=== PATIENT | male | born 1975 | race Caucasian/White ===

== ENCOUNTER → 2024-08-01 09:08 | Outpatient (REF) | payer BC, SELFPAY ==
[2024-08-01 10:21] LABS: % Basophils 0.3 % (0-2); % Eosinophils 2.1 % (0-6); % Immature Granulocytes 0.4 % (0-0.5); % Lymphocytes 19.2 % (20.5-51.1); % Monocytes 7.8 % (1.7-9.3); % Neutrophils 70.2 % (42.2-75.2); Absolute Eosinophils 0.2 10^3/uL (0-0.7); Absolute Lymphocytes 1.4 10^3/uL (1.2-3.4); Absolute Monocytes 0.6 10^3/uL (0.1-0.6); Hematocrit 33.5 % (39.0-52.0); Hemoglobin 10.5 g/dL (13.0-18.0); Mean Corp Hgb Conc. 31.3 g/dL (33.0-37.0); Mean Corpuscular Hgb 25.7 pg (27.0-31.0); Mean Corpuscular Volume 82.1 fL (80.0-94.0); Nucleated Red Blood Cells % 0 % (-); Platelet Count 333 10^3/uL (130-400); Red Blood Cell Count 4.08 10^6/uL (4.70-6.10); Red Cell Dist. Width 14.1 % (11.5-14.5); White Blood Cell Count 7.2 10^3/uL (4.8-10.8)
[2024-08-01 10:50] LABS: ALT (SGPT) 18 U/L (0-50); AST (SGOT) 17 U/L (17-59); Albumin 4.1 g/dl (3.5-5.0); Alkaline Phosphatase 114 U/L (38-126); Blood Urea Nitrogen 17 mg/dl (9-20); Calcium 9.1 mg/dl (8.4-10.2); Carbon Dioxide 27 mmol/L (22-30); Chloride 102 mmol/L (98-107); GGTP 32 U/L (15-73); Glucose 102 mg/dl (70-99); Iron 42 ug/dl (49-181); Potassium 4.5 mmol/L (3.5-5.1); Sodium 141 mmol/L (135-145); Total Bilirubin 0.3 mg/dl (0.2-1.3); Total Protein 7.1 g/dl (6.3-8.2); eGFR > 60.00
[2024-08-01 10:59] LABS: Percent Saturation 13 % (20-50); Total Iron Binding Capacity 318 ug/dl (261-462)
[2024-08-01 11:56] LABS: Folate 6.4 ng/ml (2.76-20); Vitamin B12 269 pg/ml (239-931)
== END ==
LOC: RAD 09:08
PROVIDERS: ATTENDING PHYSICIAN Hospitalist
DX: N50.89 Other specified disorders of the male genital organs (principal); D64.9 Anemia, unspecified; R74.8 Abnormal levels of other serum enzymes; R79.89 Other specified abnormal findings of blood chemistry
CPT/HCPCS: 36415; 76870; 80053; 82607; 82728; 82746; 82977; 83540; 83550; 85025; 93976

== ENCOUNTER → 2024-10-06 09:06 | Outpatient (REF) | payer BC, SELFPAY | LOC: RAD 09:06 | PROVIDERS: ATTENDING PHYSICIAN Hospitalist | DX: R31.9 Hematuria, unspecified (principal) | CPT/HCPCS: 76770 ==

== ENCOUNTER → 2024-11-18 19:25 | Outpatient (REF) | payer BC, SELFPAY | LOC: MRI 3T 19:25 | PROVIDERS: ATTENDING PHYSICIAN Specialist; FAMILY PHYSICIAN Internal Medicine | DX: D41.02 Neoplasm of uncertain behavior of left kidney (principal) | CPT/HCPCS: 74183; A9575 ==

== ENCOUNTER → 2024-12-12 08:21 | Outpatient (REF) | payer BC, SELFPAY ==
[2024-12-12 09:33] LABS: % Basophils 0.3 % (0-2); % Eosinophils 1.8 % (0-6); % Immature Granulocytes 0.3 % (0-0.5); % Lymphocytes 14.1 % (20.5-51.1); % Monocytes 9.3 % (1.7-9.3); % Neutrophils 74.2 % (42.2-75.2); Absolute Eosinophils 0.2 10^3/uL (0-0.7); Absolute Lymphocytes 1.3 10^3/uL (1.2-3.4); Absolute Monocytes 0.9 10^3/uL (0.1-0.6); Absolute Neutrophils 6.8 10^3/uL (1.4-6.5); Hematocrit 31.9 % (39.0-52.0); Hemoglobin 9.4 g/dL (13.0-18.0); Mean Corp Hgb Conc. 29.5 g/dL (33.0-37.0); Mean Corpuscular Volume 74.7 fL (80.0-94.0); Mean Platelet Volume 9.3 fL (7.4-10.4); Nucleated Red Blood Cells % 0 % (-); Platelet Count 546 10^3/uL (130-400); Red Blood Cell Count 4.27 10^6/uL (4.70-6.10); Red Cell Dist. Width 15.9 % (11.5-14.5); White Blood Cell Count 9.1 10^3/uL (4.8-10.8)
[2024-12-12 09:39] LABS: INR 1.03; PT 13.8 Sec (11.4-14.6)
[2024-12-12 09:40] LABS: APTT 30.1 Sec (23.4-35.0)
[2024-12-12 09:57] LABS: Blood Urea Nitrogen 22 mg/dl (9-20); Calcium 9.4 mg/dl (8.4-10.2); Carbon Dioxide 27 mmol/L (22-30); Chloride 109 mmol/L (98-107); Glucose 116 mg/dl (70-99); Potassium 5.2 mmol/L (3.5-5.1); Sodium 145 mmol/L (135-145); eGFR 45.01
== END ==
LOC: HWRAD 08:21
PROVIDERS: ATTENDING PHYSICIAN Urology; FAMILY PHYSICIAN Nurse Practitioner
DX: C64.9 Malignant neoplasm of unspecified kidney, except renal pelvis (principal)
CPT/HCPCS: 36415; 71046; 71250; 80048; 85025; 85610; 85730; 86850; 86900; 86901; 93005

== ENCOUNTER → 2025-01-27 10:25 | Outpatient (REF) | payer BC, SELFPAY ==
[2025-01-27 11:18] LABS: Hematocrit 39.5 % (39.0-52.0); Hemoglobin 12.2 g/dL (13.0-18.0); Mean Corp Hgb Conc. 30.9 g/dL (33.0-37.0); Mean Corpuscular Volume 81.1 fL (80.0-94.0); Nucleated Red Blood Cells % 0 % (-); Platelet Count 332 10^3/uL (130-400); Red Cell Dist. Width 18.0 % (11.5-14.5)
[2025-01-27 11:59] LABS: ALT (SGPT) 18 U/L (0-50); AST (SGOT) 17 U/L (17-59); Albumin 4.8 g/dl (3.5-5.0); Alkaline Phosphatase 107 U/L (38-126); Blood Urea Nitrogen 21 mg/dl (9-20); Calcium 10.0 mg/dl (8.4-10.2); Carbon Dioxide 28 mmol/L (22-30); Chloride 104 mmol/L (98-107); Glucose 100 mg/dl (70-99); Iron 53 ug/dl (49-181); Potassium 5.2 mmol/L (3.5-5.1); Sodium 141 mmol/L (135-145); Total Protein 7.8 g/dl (6.3-8.2); eGFR 56.02
[2025-01-27 12:08] LABS: Total Iron Binding Capacity 379 ug/dl (261-462)
[2025-01-27 12:33] LABS: Ferritin 50.1 ng/ml (17.9-464.0)
== END ==
LOC: REG 10:25
PROVIDERS: ATTENDING PHYSICIAN Internal Medicine Hematology & Oncology
DX: C64.2 Malignant neoplasm of left kidney, except renal pelvis (principal); D50.9 Iron deficiency anemia, unspecified; M62.830 Muscle spasm of back; R91.8 Other nonspecific abnormal finding of lung field
CPT/HCPCS: 36415; 80053; 82728; 83540; 83550; 84443; 85025

== ENCOUNTER 2025-01-29 02:13 | Emergency (ER) | payer BC, SELFPAY ==
[2025-01-29 02:14] VITALS: BP 132/95
[2025-01-29 02:34] LABS: Hematocrit 37.7 % (39.0-52.0); Hemoglobin 12.2 g/dL (13.0-18.0); Mean Corp Hgb Conc. 32.4 g/dL (33.0-37.0); Mean Corpuscular Volume 79.5 fL (80.0-94.0); Nucleated Red Blood Cells % 0 % (-); Platelet Count 387 10^3/uL (130-400); Red Cell Dist. Width 17.9 % (11.5-14.5)
[2025-01-29 02:57] LABS: ALT (SGPT) 17 U/L (0-50); AST (SGOT) 16 U/L (17-59); Albumin 4.6 g/dl (3.5-5.0); Alkaline Phosphatase 108 U/L (38-126); Blood Urea Nitrogen 26 mg/dl (9-20); Calcium 9.9 mg/dl (8.4-10.2); Carbon Dioxide 27 mmol/L (22-30); Chloride 107 mmol/L (98-107); Glucose 108 mg/dl (70-99); Potassium 4.8 mmol/L (3.5-5.1); Sodium 141 mmol/L (135-145); Total Protein 7.5 g/dl (6.3-8.2); eGFR > 60.00
[2025-01-29 03:37] VITALS: BMI 24.4
[2025-01-29 03:39] VITALS: BP 130/89
[2025-01-29 04:00] VITALS: BP 136/95
--- NOTE | 2025-01-29 04:28 | ED.GENMED ---
History of Present Illness
General
Chief Complaint: Back Pain
Source: patient
Exam Limitations: none
Time Seen by Provider: 01/29/25 04:09
Nursing documentation reviewed up to this point in time: agreed with
History of Present Illness
History of Present Illness:
49-year-old male presenting to the emergency department today with concerns of left low back pain over the past few weeks. Was started on steroids a few days ago and is presuming this could have been a nerve root irritation. Had his left kidney
removed 5 weeks ago. Denies any fevers denies any urinary symptoms. Seems to be somewhat positional.
Past History
Past History
ED Past Medical History: None
ED Past Surgical History: None
Social History
Tobacco: Smoker
Alcohol: None
Review of Systems
Review of Systems
Allergies reviewed?: Yes
All Other Systems: ROS reviewed and negative except as documented in HPI and ROS
Phy Exam
Physical Exam
Physical Exam:
GENERAL: Alert , in no apparent distress
EYE: pupils equal and reactive
NECK: Supple, no significant adenopathy.
ENT: o/p clr, mmm.
CARDIAC: Regular rate and rhythm .
LUNGS: Clear breath sounds bilaterally, no acute respiratory distress, no wheezes/rales/rhonchi
ABDOMEN: Soft, without focal tenderness, no r/g, no cvat
NEUROLOGICAL: Alert and oriented, no focal neuro deficits
SKIN: Warm and dry, skin intact.
MUSCULOSKELETAL: Left low back pain seems to be worsened with certain positions but not specifically reproducible to palpation no edema, well perfused.
PSYCH: Normal and appropriate interaction.
Course
Orders/Labs/Results
Orders:
Orders
01/29/25 02:19
Complete Blood Count/With Diff Urgent
Comprehensive Metabolic Panel Urgent
01/29/25 04:18
CT Abd/pel Without Iv Or Oral Urgent
Comment:
Reason For Exam: left flank pain, recent nephrectomy
01/29/25 04:19
Acetaminophen [Tylenol] 1,000 mg PO NOW STA
01/29/25 04:31
Urinalysis Reflex To Culture Urgent
Date Specimen was Collected: 01/29/25
Time Specimen was Collected: 03:33
Urine Microscopic Reflex Cult Urgent
Abnormal Lab Results
01/29/25 01/29/25
02:19 04:31
WBC 12.6 H 10^3/uL
(4.8-10.8)
Hgb 12.2 L g/dL
(13.0-18.0)
Hct 37.7 L %
(39.0-52.0)
MCV 79.5 L fL
(80.0-94.0)
MCH 25.7 L pg
(27.0-31.0)
MCHC 32.4 L g/dL
(33.0-37.0)
RDW 17.9 H %
(11.5-14.5)
Abs Immat Gran (auto) 0.1 H 10^3/uL
(0-0.05)
Absolute Neuts (auto) 8.3 H 10^3/uL
(1.4-6.5)
Absolute Monos (auto) 1.0 H 10^3/uL
(0.1-0.6)
BUN 26 H mg/dl
(9-20)
Glucose 108 H mg/dl
(70-99)
AST 16 L U/L
(17-59)
Urine Albumin (Reflex) 1+ A
(Neg - Trace)
01/29/25 02:19
01/29/25 02:19
Vital Signs
Initial and Last Documented VS:
Initial Vital Signs
Temp Pulse Resp BP Pulse Ox
97.8 F 87 18 132/95 99
01/29/25 02:14 01/29/25 02:14 01/29/25 02:14 01/29/25 02:14 01/29/25 02:14
Last Documented Vital Signs
Temp Pulse Resp BP Pulse Ox
97.8 F 93 18 130/89 99
01/29/25 02:14 01/29/25 03:43 01/29/25 03:43 01/29/25 03:39 01/29/25 04:29
MDM/Problems Addressed
MDM/Problems Addressed:
49-year-old male presenting with left flank pain. Ongoing for a few weeks. Taking steroids without relief. Left kidney was removed 5 weeks ago. Incision seems to be healing well vital signs are normal on arrival. Slight white count of 12.6 but
patient is on steroids. BUN slightly elevated to creatinine ratio. CT scan was obtained for further assessment. L2 compression fracture was visualized with concerns for metastatic disease. Patient was given this information advised for close
outpatient follow-up. No neurologic symptoms associated.
*Pulse Oximetry
SaO2: 99
Oxygen Mode of Delivery: Room air
Patient hypoxic: no (99)
*Critical Care Note
Total Time (30-74mins, 75-104mins- exclusive of procedures): Not Applicable
ED Attending Note
-
Portions of this chart may have been created with voice recognition software.� Occasional wrong word or��sound alike� substitutions may have occurred due to the inherent limitations of voice recognition software.
Discharge Plan
Departure
Patient Disposition: Home (Routine Discharge)
Date of Disposition: 01/29/25
Time of Disposition: 05:59
Patient with high blood pressure during this ER visit?: No
Condition: Good
Covid-19: Not Applicable
Discharge Problem:
Pathologic compression fracture of lumbar vertebra
Instructions: Low Back Pain (DC)
Prescriptions:
New
oxycodone-acetaminophen [Endocet] 5-325 mg tablet
1 tab PO Q8H PRN (Reason: Pain) Qty: 7 0RF
No Action
acetaminophen [Tylenol Extra Strength] 500 mg Tablet
1,000 mg PO QID PRN (Reason: pain)
bupropion HCl [Wellbutrin XL] 300 mg Tablet Extended Release 24 Hr
300 mg PO DAILY
Referrals:
UNKNOWN - PT DOES,NOT KNOW [Family Provider]
Activity Restrictions/Additional Instructions:
You came to the emergency department today with concerns of low back pain. You are found to have a fracture to your lumbar spine. Please follow-up closely with your oncologist for further assessment and management. Return for any worsening, new
or concerning symptoms.
Interventions
Interventions:
*Risk Screen - Suicide Last Done: 01/29/25 02:14
*General Assessment Last Done: 01/29/25 02:14
*Neglect/Abuse Screening Last Done: 01/29/25 02:14
*ED- Fall Risk Assessment Last Done: 01/29/25 03:39
*ED COVID-19 Vaccine History Last Done: 01/29/25 03:39
ED-Musculoskeletal Assessment Last Done: 01/29/25 03:39
Discharge Date and Time
Print Language: LIBERIAN
[2025-01-29] MEDS: TYLENOL 1000 MG PO (04:29)
[2025-01-29 04:40] LABS: Urine Character Clear (Clear)
[2025-01-29 04:52] LABS: Urine Red Blood Cell 0-2 /HPF (0-2); Urine Squamous Cell 0-2 /LPF (Few); Urine White Cell 0-2 /HPF (0-5)
[2025-01-29 06:06] VITALS: BP 141/77
== END 2025-01-29 06:16 | disposition home or self-care (01) ==
LOC: EMR 02:13
PROVIDERS: Emergency Medicine; EMERGENCY PHYSICIAN Emergency Medicine
DX: M48.56XA Collapsed vertebra, not elsewhere classified, lumbar region, initial encounter for fracture (principal); F17.200 Nicotine dependence, unspecified, uncomplicated; Z85.528 Personal history of other malignant neoplasm of kidney; Z90.5 Acquired absence of kidney
CPT/HCPCS: 99284; 74176; 80053; 81003; 81015; 85025

== ENCOUNTER → 2025-02-23 06:56 | Outpatient (REF) | payer BC, SELFPAY ==
[2025-02-23 07:15] VITALS: BP 135/96; BP_SYST 68
[2025-02-23 09:30] VITALS: BP 111/82; BP_SYST 60
[2025-02-23 09:35] VITALS: BP 110/76; BP_SYST 59
[2025-02-23 09:45] VITALS: BP 96/69; BP_SYST 60
[2025-02-23 10:13] VITALS: BP 97/65
== END ==
LOC: RADI 06:56
PROVIDERS: ATTENDING PHYSICIAN Internal Medicine Hematology & Oncology; FAMILY PHYSICIAN Nurse Practitioner
DX: C79.51 Secondary malignant neoplasm of bone (principal); C64.2 Malignant neoplasm of left kidney, except renal pelvis
CPT/HCPCS: 20225; 77002; 88307; 88311; 88341; 88342

== ENCOUNTER 2025-03-18 23:12 | Emergency (ER) | payer BC, SELFPAY ==
[2025-03-18 23:12] VITALS: BMI 21.3
[2025-03-18 23:14] VITALS: BP 141/99
[2025-03-18 23:15] VITALS: BP 141/99
[2025-03-19] VITALS: BP 114/77
[2025-03-19] MEDS: DILAUDID 1 MG IV ×2 (00:43→03:39)
[2025-03-19 00:47] LABS: Hematocrit 35.7 % (39.0-52.0); Hemoglobin 11.7 g/dL (13.0-18.0); Mean Corp Hgb Conc. 32.8 g/dL (33.0-37.0); Mean Corpuscular Volume 79.9 fL (80.0-94.0); Nucleated Red Blood Cells % 0 % (-); Platelet Count 221 10^3/uL (130-400); Red Cell Dist. Width 18.4 % (11.5-14.5)
[2025-03-19 01:11] LABS: ALT (SGPT) 25 U/L (0-50); AST (SGOT) 16 U/L (17-59); Albumin 3.7 g/dl (3.5-5.0); Alkaline Phosphatase 80 U/L (38-126); Blood Urea Nitrogen 23 mg/dl (9-20); Calcium 9.0 mg/dl (8.4-10.2); Carbon Dioxide 24 mmol/L (22-30); Chloride 109 mmol/L (98-107); Estimated Creatinine Clearance 76 ml/min; Glucose 93 mg/dl (70-99); Potassium 3.8 mmol/L (3.5-5.1); Sodium 136 mmol/L (135-145); Total Protein 6.3 g/dl (6.3-8.2); eGFR > 60.00
--- NOTE | 2025-03-19 02:11 | ED.GENMED ---
History of Present Illness
<Alejo Abbasi Jr., PA-C - Last Filed: 03/19/25 23:32>
General
Chief Complaint: Back Pain
Source: patient
Exam Limitations: none
Time Seen by Provider: 03/19/25 00:04
Nursing documentation reviewed up to this point in time: agreed with
History of Present Illness
History of Present Illness:
49-year-old male past medical history of hyperlipidemia, previous renal cancer left-sided nephrectomy 3 months ago presenting to the emergency department today with concerns of ongoing progressive low back pain. Was diagnosed recently with a lumbar
vertebral fracture. Has been following up for this. Is scheduled to follow-up with interventional radiology today. Denies any numbness we urination nausea vomiting or diarrhea.
Past History
<Alejo Abbasi Jr., PA-C - Last Filed: 03/19/25 23:32>
Past History
ED Past Medical History: None
ED Past Surgical History: None
Social History
Tobacco: Smoker
Alcohol: None
Review of Systems
<Alejo Abbasi Jr., PA-C - Last Filed: 03/19/25 23:32>
Review of Systems
Allergies reviewed?: Yes
All Other Systems: ROS reviewed and negative except as documented in HPI and ROS
Phy Exam
<DON Wise Jr. Last Filed: 03/19/25 23:32>
Physical Exam
Physical Exam:
GENERAL: Alert , in no apparent distress
EYE: pupils equal and reactive
NECK: Supple, no significant adenopathy.
ENT: o/p clr, mmm.
CARDIAC: Regular rate and rhythm .
LUNGS: Clear breath sounds bilaterally, no acute respiratory distress, no wheezes/rales/rhonchi
ABDOMEN: Soft, without focal tenderness, no r/g, no cvat
NEUROLOGICAL: Alert and oriented, no focal neuro deficits
SKIN: Warm and dry, skin intact.
MUSCULOSKELETAL: No edema, well perfused.
PSYCH: Normal and appropriate interaction.
Course
<Alejo Abbasi Jr., PA-C - Last Filed: 03/19/25 23:32>
Orders/Labs/Results
Orders:
Orders
03/19/25 00:28
Complete Blood Count/With Diff Urgent
Comprehensive Metabolic Panel Urgent
03/19/25 00:32
CT Abd/Pel (IV only)-DH only Urgent
Comment:
Reason For Exam: low back pain, hx nephrectomy/CA pathologic fx
HYDROmorphone [Dilaudid] 1 mg IV NOW STA
03/19/25 03:25
HYDROmorphone [Dilaudid] 1 mg IV NOW STA
03/19/25 03:43
Urinalysis Reflex To Culture Urgent
Date Specimen was Collected: 03/19/25
Time Specimen was Collected: 03:42
Urine Microscopic Reflex Cult Urgent
03/19/25 03:53
Docusate W/Senna [Senokot-S] 1 tablet PO NOW STA
03/19/25 04:34
Morphine Sulfate Extended Rel. [Ms Contin (Extended Release)] 15 mg PO NOW STA
Abnormal Lab Results
03/19/25 03/19/25
00:28 03:43
WBC 11.4 H 10^3/uL
(4.8-10.8)
RBC 4.47 L 10^6/uL
(4.70-6.10)
Hgb 11.7 L g/dL
(13.0-18.0)
Hct 35.7 L %
(39.0-52.0)
MCV 79.9 L fL
(80.0-94.0)
MCH 26.2 L pg
(27.0-31.0)
MCHC 32.8 L g/dL
(33.0-37.0)
RDW 18.4 H %
(11.5-14.5)
Abs Immat Gran (auto) 0.1 H 10^3/uL
(0-0.05)
Absolute Neuts (auto) 8.3 H 10^3/uL
(1.4-6.5)
Absolute Monos (auto) 1.1 H 10^3/uL
(0.1-0.6)
Immature Gran % 0.8 H %
(0-0.5)
Lymphocytes % 16.7 L %
(20.5-51.1)
Chloride 109 H mmol/L
(98-107)
BUN 23 H mg/dl
(9-20)
AST 16 L U/L
(17-59)
Urine Bacteria (Reflex) Few A
(Negative)
Urine Glucose 1+ A
(Negative)
Urine Albumin (Reflex) 2+ A
(Neg - Trace)
03/19/25 00:28
03/19/25 00:28
Vital Signs
Initial and Last Documented VS:
Initial Vital Signs
BP Pulse Ox
141/99 98
03/18/25 23:14 03/18/25 23:14
Last Documented Vital Signs
Temp Pulse Resp BP Pulse Ox
98.3 F 74 14 118/75 97
03/18/25 23:15 03/19/25 00:00 03/19/25 00:00 03/19/25 03:41 03/19/25 02:12
<Paige Quijano, - Last Filed: 03/22/25 07:48>
Orders/Labs/Results
Orders:
Orders
03/19/25 00:28
Complete Blood Count/With Diff Urgent
Comprehensive Metabolic Panel Urgent
03/19/25 00:32
CT Abd/Pel (IV only)-DH only Urgent
Comment:
Reason For Exam: low back pain, hx nephrectomy/CA pathologic fx
HYDROmorphone [Dilaudid] 1 mg IV NOW STA
03/19/25 03:25
HYDROmorphone [Dilaudid] 1 mg IV NOW STA
03/19/25 03:43
Urinalysis Reflex To Culture Urgent
Date Specimen was Collected: 03/19/25
Time Specimen was Collected: 03:42
Urine Microscopic Reflex Cult Urgent
03/19/25 03:53
Docusate W/Senna [Senokot-S] 1 tablet PO NOW STA
03/19/25 04:34
Morphine Sulfate Extended Rel. [Ms Contin (Extended Release)] 15 mg PO NOW STA
Abnormal Lab Results
03/19/25 03/19/25
00:28 03:43
WBC 11.4 H 10^3/uL
(4.8-10.8)
RBC 4.47 L 10^6/uL
(4.70-6.10)
Hgb 11.7 L g/dL
(13.0-18.0)
Hct 35.7 L %
(39.0-52.0)
MCV 79.9 L fL
(80.0-94.0)
MCH 26.2 L pg
(27.0-31.0)
MCHC 32.8 L g/dL
(33.0-37.0)
RDW 18.4 H %
(11.5-14.5)
Abs Immat Gran (auto) 0.1 H 10^3/uL
(0-0.05)
Absolute Neuts (auto) 8.3 H 10^3/uL
(1.4-6.5)
Absolute Monos (auto) 1.1 H 10^3/uL
(0.1-0.6)
Immature Gran % 0.8 H %
(0-0.5)
Lymphocytes % 16.7 L %
(20.5-51.1)
Chloride 109 H mmol/L
(98-107)
BUN 23 H mg/dl
(9-20)
AST 16 L U/L
(17-59)
Urine Bacteria (Reflex) Few A
(Negative)
Urine Glucose 1+ A
(Negative)
Urine Albumin (Reflex) 2+ A
(Neg - Trace)
03/19/25 00:28
03/19/25 00:28
Vital Signs
Initial and Last Documented VS:
Initial Vital Signs
BP Pulse Ox
141/99 98
03/18/25 23:14 03/18/25 23:14
Last Documented Vital Signs
Temp Pulse Resp BP Pulse Ox
98.3 F 74 14 118/75 97
03/18/25 23:15 03/19/25 00:00 03/19/25 00:00 03/19/25 03:41 03/19/25 02:12
<Alejo Abbasi Jr., PA-C - Last Filed: 03/19/25 23:32>
MDM/Problems Addressed
MDM/Problems Addressed:
49-year-old male presenting to the emergency department today with concerns of progressive low back pain. Has had ongoing back pain for multiple months now worsening by taking oxycodone at home. Denies numbness weakness of the lower extremities
nausea vomiting diarrhea or fevers. He does claim to have a radiation oncology appointment first in the morning. CT scan was repeated considering patient's progressive pain that is poorly controlled. CT scan showing extension as previously seen
but worsening was demonstrated on the CT scan. Concerning escalation of pain plan to admit for pain control and specialty consultation.
Case was discussed with admitting team. Patient would be unable to be seen by radiation oncology if admitted. Patient discharged directly to his outpatient appointment. He was given return precautions.
<Alejo Abbasi Jr., PA-C - Last Filed: 03/19/25 23:32>
*Pulse Oximetry
SaO2: 97
Oxygen Mode of Delivery: Room air
Patient hypoxic: no (97)
*Critical Care Note
Total Time (30-74mins, 75-104mins- exclusive of procedures): Not Applicable
ED Attending Note
<Alejo Abbasi Jr., PA-C - Last Filed: 03/19/25 23:32>
-
Portions of this chart may have been created with voice recognition software.� Occasional wrong word or��sound alike� substitutions may have occurred due to the inherent limitations of voice recognition software.
<Paige Quijano DO - Last Filed: 03/22/25 07:48>
ED Attending Note
Patient seen and examined by attending physician: Yes
I performed a history and physical exam of patient and discussed management with resident, I reviewed resident's note and agree with documented findings and plan of care.: Yes
ED Attending Note:
This is a 49-year-old gentleman with history of renal cell carcinoma status post left nephrectomy and local dissection mid December. He developed low back pain early January and evaluated in this ED January 29. CAT scan at that time showed pathologic
compression fracture L2 vertebra.
He has had increase in his back pain, more so over the past week, unrelieved with oxycodone.
He has an initial appointment with radiation oncology scheduled for this morning at 8 AM.
Currently on no treatment for metastatic renal cell carcinoma. Apparently having difficulty with insurance approval for immunotherapy that was planned to start January.
He has not had a fall. No fevers or chills. He does admit to some constipation but denies abdominal pain.
He notes mild numbness left lateral thigh that has been chronic and unchanged since nephrectomy in December. He denies radiation of the back pain. No saddle anesthesia. No difficulty urinating.
49-year-old gentleman appears somewhat older than stated age. Awake and alert, appears in mild distress related to pain. Afebrile. Mildly elevated systolic blood pressure, has improved with improvement in back pain after IV Dilaudid.
Back: Moderate tenderness L1-L3 vertebra.
Abdomen is soft without appreciable tenderness.
No focal neurodeficits. Motor strength is 5/[address] shows progression of metastatic lesion at L2 as well as new metastatic lesion L1. There is neoplastic extension into the anterior and left lateral spinal canal at the level of L1 and L2 vertebral bodies with moderate to severe spinal canal
narrowing at L2. Also note of stool-filled colon but no bowel obstruction or free air.
It is reassuring that patient remains neurologically intact. No neurodeficits but clearly requires improvement in pain management, requiring repeated doses of IV Dilaudid.
As such we will plan to admit to hospitalist service for pain control and consider radiation oncology evaluation today.
04:30
Patient has been evaluated by latrine cleaner. We are now informed that patient will not be able to initiate radiation oncology as an inpatient.
As such we will plan for continued pain management in the ED. Will discharge in the morning for planned radiation oncology outpatient visit at 8 AM.
Recommend initiation of MS Contin twice daily and will give a dose now.
Patient agreeable with this plan.
Discharge Plan
Departure
Patient Disposition: Home (Routine Discharge)
Date of Disposition: 03/19/25
Time of Disposition: 05:53
Patient with high blood pressure during this ER visit?: No
Condition: Good
Covid-19: Not Applicable
Discharge Problem:
Low back pain, Compression fracture of vertebral column
Instructions: Low Back Pain (DC)
Prescriptions:
No Action
acetaminophen [Tylenol Extra Strength] 500 mg Tablet
1,000 mg PO QID PRN (Reason: pain)
bupropion HCl [Wellbutrin XL] 300 mg Tablet Extended Release 24 Hr
300 mg PO DAILY
oxycodone-acetaminophen [Endocet] 5-325 mg tablet
1 tab PO Q8H PRN (Reason: Pain) Qty: 7 0RF
dexamethasone [Decadron] 4 mg Tablet
4 mg PO BID
Referrals:
Dayanna Ashley, [Family Provider, Hematology / Oncology]
Activity Restrictions/Additional Instructions:
You came to the emergency department today with concerns of worsening back pain. Here you had evidence of extension into the back. It is important for very close follow-up for further treatment of this. Return for any worsening, new or concerning
symptoms.
Interventions
Interventions:
*Risk Screen - Suicide Last Done: 03/18/25 23:15
*General Assessment Last Done: 03/18/25 23:15
*Neglect/Abuse Screening Last Done: 03/18/25 23:15
*ED- Fall Risk Assessment Last Done: 03/18/25 23:15
*ED COVID-19 Vaccine History Last Done: 03/19/25 07:33
*Nursing Disposition Last Done: 03/19/25 07:33
ED-Musculoskeletal Assessment Last Done: 03/18/25 23:20
Discharge Date and Time
Discharge Date/Time: 03/19/25 07:34
Print Language: PORTUGUESE
[2025-03-19 03:41] VITALS: BP 118/75
[2025-03-19 03:58] LABS: Urine Character Clear (Clear)
[2025-03-19 04:09] LABS: Urine Red Blood Cell None Seen /HPF (0-2); Urine White Cell None Seen /HPF (0-5)
== END 2025-03-19 07:34 | disposition home or self-care (01) ==
LOC: EMR 23:12
PROVIDERS: Physician Assistant; EMERGENCY PHYSICIAN Emergency Medicine; FAMILY PHYSICIAN Internal Medicine Hematology & Oncology
DX: M84.58XA Pathological fracture in neoplastic disease, other specified site, initial encounter for fracture (principal); C79.51 Secondary malignant neoplasm of bone; E78.5 Hyperlipidemia, unspecified; M48.061 Spinal stenosis, lumbar region without neurogenic claudication; F17.200 Nicotine dependence, unspecified, uncomplicated; Z85.528 Personal history of other malignant neoplasm of kidney; Z90.5 Acquired absence of kidney
CPT/HCPCS: 99284; 96374; 96376; 74177; 80053; 81003; 81015; 85025; Q9967

== ENCOUNTER 2025-03-23 23:57 | Emergency (ER) | payer BC, SELFPAY ==
[2025-03-24 00:04] VITALS: BP 132/84
[2025-03-24 02:34] VITALS: BMI 20.8
[2025-03-24 02:38] VITALS: BP 140/52
[2025-03-24 03:00] VITALS: BP 141/104
[2025-03-24] MEDS: TORADOL 15 MG IM (03:03)
[2025-03-24 04:00] VITALS: BP 157/93
--- NOTE | 2025-03-24 04:56 | ED.GENMED ---
History of Present Illness
<Vishal Quintana MD, Resident - Last Filed: 03/24/25 06:25>
General
Chief Complaint: Back Pain
Source: patient and spouse
Time Seen by Provider: 03/24/25 04:43
History of Present Illness
History of Present Illness:
Charli is a 49-year-old male with hyperlipidemia, renal cancer s/p left-sided nephrectomy 3 months ago now getting radiation and follows with Dr. Ashley, who presents with severe low back pain secondary to known L2 compression fractures from cancer.
Of note, he was in the ED on 03/19 for the same reason. Since then, he reports that his first radiation treatment was yesterday 03/23, however his pain has gotten worse. He is scheduled to get radiation on , , , . Dr. Ashley has prescribed him
with dexamethasone 4 mg p.o. twice daily and oxycodone-acetaminophen 1 tablet every 8 hours as needed. He reports that this is not sufficient. 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
states that Charli was in tears from pain all day today. Charli states that the pain is worse with movement, however it is always constantly there. His last BM was 1 week ago. He denies fevers, chills, recent infections, or any other new
symptoms. He is scheduled to meet with Dr. Ashley on Sunday and this Sunday has his first Keytruda infusion.
Past History
<Vishal Quintana MD, Resident - Last Filed: 03/24/25 06:25>
Past History
ED Past Medical History: None
ED Past Surgical History: None
Social History
Tobacco: Smoker
Alcohol: None
Phy Exam
<Vishal Quintana MD, Resident - Last Filed: 03/24/25 06:25>
General Physical Exam
General Presentation: moderate distress and other (In and out of sleep, reports that he is exhausted from pain in the day)
General Skin: warm and dry
General Habitus: cachetic
General Hydration: dry mucous membranes
ENT Exam
ENT Exam: EOMI
Cardiovascular Exam
Cardiovascular Exam: regular rate/rhythm and no edema
Pulmonary Exam
Pulmonary Exam: lungs clear and no respiratory distress
Gastrointestinal Exam
Gastrointestinal Exam: non tender and non distended
Musculoskeletal Exam
Musculoskeletal Exam: back pain (Severe, patient does not tolerate exam nor palpation)
Course
<Vishal Quintana MD, Resident - Last Filed: 03/24/25 06:25>
Orders/Labs/Results
Orders:
Orders
03/24/25 02:52
Ketorolac [Toradol] 15 mg IM NOW STA
03/24/25 05:10
HYDROmorphone [Dilaudid] 1 mg IV NOW STA
03/24/25 05:26
Morphine Sulfate Extended Rel. [Ms Contin (Extended Release)] 15 mg PO NOW STA
03/24/25 05:32
Docusate Sodium [Colace] 100 mg PO NOW STA
Docusate W/Senna [Senokot-S] 1 tablet PO NOW STA
Vital Signs
Initial and Last Documented VS:
Initial Vital Signs
Temp Pulse Resp BP Pulse Ox
98 F 108 20 132/84 98
03/24/25 00:04 03/24/25 00:04 03/24/25 00:04 03/24/25 00:04 03/24/25 00:04
Last Documented Vital Signs
Temp Pulse Resp BP Pulse Ox
98 F 87 28 157/93 94
03/24/25 00:04 03/24/25 04:30 03/24/25 04:30 03/24/25 04:00 03/24/25 05:00
<Paige Quijano DO - Last Filed: 03/24/25 06:29>
Orders/Labs/Results
Orders:
Orders
03/24/25 02:52
Ketorolac [Toradol] 15 mg IM NOW STA
03/24/25 05:10
HYDROmorphone [Dilaudid] 1 mg IV NOW STA
03/24/25 05:26
Morphine Sulfate Extended Rel. [Ms Contin (Extended Release)] 15 mg PO NOW STA
03/24/25 05:32
Docusate Sodium [Colace] 100 mg PO NOW STA
Docusate W/Senna [Senokot-S] 1 tablet PO NOW STA
Vital Signs
Initial and Last Documented VS:
Initial Vital Signs
Temp Pulse Resp BP Pulse Ox
98 F 108 20 132/84 98
03/24/25 00:04 03/24/25 00:04 03/24/25 00:04 03/24/25 00:04 03/24/25 00:04
Last Documented Vital Signs
Temp Pulse Resp BP Pulse Ox
98 F 87 28 157/93 94
03/24/25 00:04 03/24/25 04:30 03/24/25 04:30 03/24/25 04:00 03/24/25 05:00
<Vishal Quintana MD, Resident - Last Filed: 03/24/25 06:25>
MDM/Problems Addressed
MDM/Problems Addressed:
Charli is a 49-year-old male with hyperlipidemia, renal cancer s/p left-sided nephrectomy 3 months ago now getting radiation and follows with Dr. Ashley, who presents with severe low back pain secondary to known L2 compression fractures from cancer.
#Lower back pain secondary to known osseous mets of the L1 and L2 vertebra and compression fracture of L2
#Constipation
Follows with Dr. Ashley and radiation oncology. We emphasized taking medication as prescribed, without time gaps in between for most adequate pain control. Charli agreed. We also emphasized the importance of taking a bowel regimen as prescribed to
avoid future complications.
-IV Dilaudid 1 mg x 1
-15 mg MS Contin x 1
-Senokot x 1
-Colace x 1
-Bowel regimen for home: Colace 100 mg twice daily, Metamucil twice daily, MiraLAX once daily
<Vishal Quintana MD, Resident - Last Filed: 03/24/25 06:25>
*Pulse Oximetry
SaO2: 94
Oxygen Mode of Delivery: Room air
Patient hypoxic: no
*Critical Care Note
Total Time (30-74mins, 75-104mins- exclusive of procedures): Not Applicable
ED Attending Note
<Vishal Quintana MD, Resident - Last Filed: 03/24/25 06:25>
-
Portions of this chart may have been created with voice recognition software.� Occasional wrong word or��sound alike� substitutions may have occurred due to the inherent limitations of voice recognition software.
<Paige Quijano DO - Last Filed: 03/24/25 06:29>
ED Attending Note
Patient seen and examined by attending physician: Yes
I performed the substantive portion of visit, reviewed & personally made and approve the management plan that is documented in note by myself or HERBERT.: Yes
ED Attending Note:
This is a 49-year-old gentleman with history of renal cell carcinoma status post left nephrectomy and local dissection mid December. He developed low back pain early January and evaluated in this ED January 29. CAT scan at that time showed pathologic
compression fracture L2 vertebra.
He has had increase in his back pain, more so over the past few weeks, unrelieved with oxycodone.
Evaluated in this ED March 19 for repeat CAT scan demonstrates extension of metastatic lesion of L2 as well as a new metastatic lesion of L1.
Pain was improved with IV Dilaudid and he was given a dose of MS Contin 15 mg during that ED visit.
He had an initial appointment with radiation oncology later that morning at 8 AM. He was discharged from the ED that morning and went directly to radiation oncology and received his first radiation treatment just yesterday with plans for daily
treatment this week. He has a follow-up appointment with his oncologist on Sunday, 3 days time.
He continues to take Percocet generally 3 times per day for back pain. 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 He admits that he has not been maintained on a regular regimen of pain medication, back pain is
unrelenting and much worse at nighttime.
He has not had a bowel movement in a week, has been neglectful with bowel regimen. He denies abdominal pain. No nausea or vomiting.
Currently on no treatment for metastatic renal cell carcinoma. Initially having difficulty with insurance approval for immunotherapy that was planned to start January. He starts Keytruda tomorrow.
He has not had a fall. No fevers or chills.
He notes mild numbness left lateral thigh that has been chronic and unchanged since nephrectomy in December. He denies radiation of the back pain. No saddle anesthesia. No difficulty urinating.
According to patient and , they discussed pain medication with radiation oncologist who deferred his pain medication regimen to his oncologist. As above, his next appointment with oncologist is in 3 days time.
49-year-old gentleman appears somewhat older than stated age. Awake and alert, appears in mild distress related to pain. Afebrile. Easily communicative. is accompanying.
Back: Moderate tenderness L1-L3 vertebra. No soft tissue swelling.
Abdomen is soft, minimally distended, no palpable tenderness.
No focal neurodeficits. Motor strength is 5/5 bilaterally.
Patient presents with persistent/recurrent cancer related metastatic bone pain.
Also noted to be constipated but reassuring that he has had no abdominal pain. No nausea or vomiting.
Will give an IV dose of Dilaudid for pain and plan to initiate MS Contin 15 mg twice daily with plan to continue Percocet for as needed breakthrough pain.
Discussed importance of bowel regimen and recommend initiation of Colace twice daily, Metamucil twice daily as well as MiraLAX once daily. This regimen can be altered as needed.
Plan for follow-up with oncologist in 3 days time for further evaluation of pain management.
Continue with radiation oncology treatments.
Recommend patient remain out of work this week and discuss back to work with oncologist on Sunday.
Discharge Plan
Departure
Patient Disposition: Home (Routine Discharge)
Date of Disposition: 03/24/25
Time of Disposition: 06:24
Patient with high blood pressure during this ER visit?: No
Condition: Fair
Discharge Problem:
Pathologic compression fracture of lumbar vertebra, Cancer related vertebral back pain
Instructions: Cancer Pain Syndromes (DC), Managing pain when you have cancer, Managing constipation from your medicines
Prescriptions:
New
morphine [MS Contin] 15 mg tablet extended release
15 mg PO Q12H Qty: 10 0RF
naloxone [Narcan] 4 mg/actuation [place],Non-Aerosol
4 mg INTRANASAL DIRECTED Qty: 2 0RF
No Action
acetaminophen [Tylenol Extra Strength] 500 mg Tablet
1,000 mg PO QID PRN (Reason: pain)
bupropion HCl [Wellbutrin XL] 300 mg Tablet Extended Release 24 Hr
300 mg PO DAILY
oxycodone-acetaminophen [Endocet] 5-325 mg tablet
1 tab PO Q8H PRN (Reason: Pain) Qty: 7 0RF
dexamethasone [Decadron] 4 mg Tablet
4 mg PO BID
Referrals:
Dayanna Ashley, [Family Provider, Hematology / Oncology] - Keep scheduled appt
Stand Alone Forms: Return to Work
Activity Restrictions/Additional Instructions:
-Take the following as prescribed daily to avoid constipation: Colace 100 mg twice daily, Metamucil twice daily, MiraLAX once daily
-Take MS Contin 15 mg as prescribed for pain control, use Endocet for breakthrough pain only
Interventions
Interventions:
*Risk Screen - Suicide Last Done: 03/24/25 00:04
*General Assessment Last Done: 03/24/25 02:35
*Neglect/Abuse Screening Last Done: 03/24/25 00:04
*ED- Fall Risk Assessment Last Done: 03/24/25 02:35
*ED COVID-19 Vaccine History Last Done: 03/24/25 02:35
ED-Musculoskeletal Assessment Last Done: 03/24/25 02:35
Discharge Date and Time
Print Language: [place] ISLAND[place]
[2025-03-24 05:00] VITALS: BP 145/93
[2025-03-24] MEDS: DILAUDID 1 MG IV (05:20)
[2025-03-24] MEDS: MS CONTIN (EXTENDED RELEASE) 15 MG PO (05:38)
[2025-03-24] MEDS: COLACE 100 MG PO (05:48)
[2025-03-24] MEDS: SENOKOT-S 1 TABLET PO (05:48)
[2025-03-24 06:00] VITALS: BP 134/90
== END 2025-03-24 06:46 | disposition home or self-care (01) ==
LOC: EMR 23:57
PROVIDERS: EMERGENCY PHYSICIAN Emergency Medicine; FAMILY PHYSICIAN Internal Medicine Hematology & Oncology
DX: M48.56XA Collapsed vertebra, not elsewhere classified, lumbar region, initial encounter for fracture (principal); E78.5 Hyperlipidemia, unspecified; F17.200 Nicotine dependence, unspecified, uncomplicated; C64.9 Malignant neoplasm of unspecified kidney, except renal pelvis; C79.51 Secondary malignant neoplasm of bone; Z90.5 Acquired absence of kidney
CPT/HCPCS: 96374; 96372; 99284

== ENCOUNTER 2025-03-27 06:53 | Emergency (ER) | payer BC, SELFPAY ==
[2025-03-27 06:54] VITALS: BP 131/94
[2025-03-27 06:55] VITALS: BP 131/94
[2025-03-27 06:58] VITALS: BMI 20.5
[2025-03-27 07:00] VITALS: BP 123/92
--- NOTE | 2025-03-27 07:04 | ED.GENMED ---
History of Present Illness
<Nataly Cleaning MD, Resident - Last Filed: 03/27/25 16:08>
General
Chief Complaint: Weakness
Source: patient
Time Seen by Provider: 03/27/25 07:00
History of Present Illness
History of Present Illness:
Patient is a 49-year-old male who presents to the emergency department with inability to walk without assistance and that both of the top of his thighs feel numb. He has a past medical history of hyperlipidemia, renal cancer status post left-sided
nephrectomy 3 months ago and is getting radiation as treatment. He states that he has not yet received chemotherapy or immunotherapy treatments. He follows with Dr. Ashley at [facility]. He has been contending with ongoing back
pain which has been the cause of multiple recent presentations to the emergency department but unfortunately the pain is continued to get worse leading to him struggling to get out of bed this morning to go to the bathroom. When he finally was able
to get out of bed he tried to walk but his right leg gave out under him and he was unable to make it to the bathroom. His acute weakness and inability to walk prompted him to present to the emergency department. He has had multiple recent
presentations to the emergency department for severe low back pain secondary to known L2 compression fractures from cancer. He was seen in the emergency department on 03/19 for the pain and was also seen on 03/24 for the same pain but it had
worsened. He was being managed with dexamethasone 4 mg p.o. 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 The patient states that the pain is worse with
movement however it remains constantly there regardless of what he does. He has been having difficulty with bowel movements.
Past History
<Nataly Cleaning MD, Resident - Last Filed: 03/27/25 16:08>
Past History
ED Past Medical History: None
ED Past Surgical History: None
Social History
Tobacco: Smoker
Alcohol: None
Review of Systems
<Nataly Cleaning MD, Resident - Last Filed: 03/27/25 16:08>
Review of Systems
Constitutional: Reports sleep disturbance ( Secondary to pain)
EENT: Reports no symptoms
Respiratory: Reports no symptoms
Cardiac: Reports no symptoms
ABD/GI: Reports abdominal pain (mild across )
: Reports no symptoms
Musculoskeletal: Reports back pain and other (weakness of R leg)
Skin: Reports no symptoms
Neurological: Reports weakness (Weakness of the Right lower limb)
Endocrine: Reports no symptoms
Hematologic/Lymphatic: Reports no symptoms
Psychiatric: Reports no symptoms
Phy Exam
<Nataly Cleaning MD, Resident - Last Filed: 03/27/25 16:08>
General Physical Exam
General Presentation: moderate distress
General age: appears stated age
General Skin: warm and dry
General Habitus: cachetic and frail
General Mental: alert
Cardiovascular Exam
Cardiovascular Exam: regular rate/rhythm, no edema, no gallop, no JVD, no murmur and normal peripheral pulses
Pulmonary Exam
Pulmonary Exam: lungs clear, no respiratory distress, no rales, chest non tender, no crackles, no rhonchi, no stridor, no wheezing and no cough
Neurological Exam
Neurological Exam: alert, oriented x3 and motor weakness (Right lower limb weakness in L4 distribution )
Motor
Right upper extremity: 5
Right lower extremity: 2 (Weakness at hip joint against gravity. Difficulty resisting counteracting motion.)
Left upper extremity: 5
Left lower extremity: 0 (unable to flex leg at hip against gravity, unable to resist counteracting motion)
Musculoskeletal Exam
Musculoskeletal Exam: back pain ( tenderness at the L1-L3 vertebra) and back tenderness
Psychiatric Exam
Psychiatric Exam: normal mood/affect
Course
<Nataly Cleaning MD, Resident - Last Filed: 03/27/25 16:08>
Orders/Labs/Results
Orders:
Orders
03/27/25 07:05
Complete Blood Count/With Diff Urgent
Comprehensive Metabolic Panel Urgent
03/27/25 07:16
0.9% Sodium Chloride 500 ml [Nss] 500 ml IV BOLUS
03/27/25 07:17
Ketorolac [Toradol] 15 mg IM NOW ONE
03/27/25 07:24
Ketorolac [Toradol] 15 mg IV NOW ONE
03/27/25 07:29
Add On- LAB Urgent
Tests Added?: CBC w/o dif
03/27/25 07:43
HYDROmorphone [Dilaudid] 1 mg IV NOW ONE
03/27/25 08:19
Ondansetron Injectable [Zofran] 4 mg IV NOW ONE
03/27/25 08:24
Electrocardiogram (*1) Urgent
Reason for Study: Fatigue / Weakness
EKG- Treatment ONCE
03/27/25 08:30
0.9% Sodium Chloride 1000 ml [Nss] 1,000 ml IV 100 mls/hr
03/27/25 08:50
Dexamethasone Sod Phosphate [Decadron] 10 mg IV NOW STA
03/27/25 09:30
Dexamethasone Sod Phosphate [Decadron] 4 mg IV Q6H
03/27/25 15:00
Dexamethasone Sod Phosphate [Decadron] 4 mg IV Q6H
Abnormal Lab Results
03/27/25
07:05
WBC 13.9 H 10^3/uL
(4.8-10.8)
Hgb 12.5 L g/dL
(13.0-18.0)
Hct 37.6 L %
(39.0-52.0)
MCV 78.8 L fL
(80.0-94.0)
MCH 26.2 L pg
(27.0-31.0)
RDW 18.6 H %
(11.5-14.5)
Abs Immat Gran (auto) 0.2 H 10^3/uL
(0-0.05)
Absolute Neuts (auto) 12.0 H 10^3/uL
(1.4-6.5)
Absolute Lymphs (auto) 0.2 L 10^3/uL
(1.2-3.4)
Absolute Monos (auto) 1.3 H 10^3/uL
(0.1-0.6)
Immature Gran % 1.6 H %
(0-0.5)
Neutrophils % 85.9 H %
(42.2-75.2)
Lymphocytes % 1.7 L %
(20.5-51.1)
Monocytes % 9.5 H %
(1.7-9.3)
Sodium 134 L mmol/L
(135-145)
Potassium 5.3 H mmol/L
(3.5-5.1)
Carbon Dioxide 20 L mmol/L
(22-30)
BUN 72 H mg/dl
(9-20)
Creatinine 2.9 H mg/dL
(0.7-1.3)
Glucose 141 H mg/dl
(70-99)
03/27/25 07:05
03/27/25 07:05
Vital Signs
Initial and Last Documented VS:
Initial Vital Signs
Temp Pulse Resp BP Pulse Ox
99.7 F 96 18 131/94 99
03/27/25 06:54 03/27/25 06:54 03/27/25 06:54 03/27/25 06:54 03/27/25 06:54
Last Documented Vital Signs
Temp Pulse Resp BP Pulse Ox
99.7 F 78 18 127/90 97
03/27/25 07:09 03/27/25 10:45 03/27/25 10:45 03/27/25 10:00 03/27/25 09:00
<Sandip Peacock, DO - Last Filed: 03/27/25 09:57>
Orders/Labs/Results
Orders:
Orders
03/27/25 07:05
Complete Blood Count/With Diff Urgent
Comprehensive Metabolic Panel Urgent
03/27/25 07:16
0.9% Sodium Chloride 500 ml [Nss] 500 ml IV BOLUS
03/27/25 07:17
Ketorolac [Toradol] 15 mg IM NOW ONE
03/27/25 07:24
Ketorolac [Toradol] 15 mg IV NOW ONE
03/27/25 07:29
Add On- LAB Urgent
Tests Added?: CBC w/o dif
03/27/25 07:43
HYDROmorphone [Dilaudid] 1 mg IV NOW ONE
03/27/25 08:19
Ondansetron Injectable [Zofran] 4 mg IV NOW ONE
03/27/25 08:24
Electrocardiogram (*1) Urgent
Reason for Study: Fatigue / Weakness
EKG- Treatment ONCE
03/27/25 08:30
0.9% Sodium Chloride 1000 ml [Nss] 1,000 ml IV 100 mls/hr
03/27/25 08:50
Dexamethasone Sod Phosphate [Decadron] 10 mg IV NOW STA
03/27/25 09:30
Dexamethasone Sod Phosphate [Decadron] 4 mg IV Q6H
03/27/25 15:00
Dexamethasone Sod Phosphate [Decadron] 4 mg IV Q6H
Abnormal Lab Results
03/27/25
07:05
WBC 13.9 H 10^3/uL
(4.8-10.8)
Hgb 12.5 L g/dL
(13.0-18.0)
Hct 37.6 L %
(39.0-52.0)
MCV 78.8 L fL
(80.0-94.0)
MCH 26.2 L pg
(27.0-31.0)
RDW 18.6 H %
(11.5-14.5)
Abs Immat Gran (auto) 0.2 H 10^3/uL
(0-0.05)
Absolute Neuts (auto) 12.0 H 10^3/uL
(1.4-6.5)
Absolute Lymphs (auto) 0.2 L 10^3/uL
(1.2-3.4)
Absolute Monos (auto) 1.3 H 10^3/uL
(0.1-0.6)
Immature Gran % 1.6 H %
(0-0.5)
Neutrophils % 85.9 H %
(42.2-75.2)
Lymphocytes % 1.7 L %
(20.5-51.1)
Monocytes % 9.5 H %
(1.7-9.3)
Sodium 134 L mmol/L
(135-145)
Potassium 5.3 H mmol/L
(3.5-5.1)
Carbon Dioxide 20 L mmol/L
(22-30)
BUN 72 H mg/dl
(9-20)
Creatinine 2.9 H mg/dL
(0.7-1.3)
Glucose 141 H mg/dl
(70-99)
03/27/25 07:05
03/27/25 07:05
Vital Signs
Initial and Last Documented VS:
Initial Vital Signs
Temp Pulse Resp BP Pulse Ox
99.7 F 96 18 131/94 99
03/27/25 06:54 03/27/25 06:54 03/27/25 06:54 03/27/25 06:54 03/27/25 06:54
Last Documented Vital Signs
Temp Pulse Resp BP Pulse Ox
99.7 F 78 18 127/90 97
03/27/25 07:09 03/27/25 10:45 03/27/25 10:45 03/27/25 10:00 03/27/25 09:00
<Nataly Cleaning MD, Resident - Last Filed: 03/27/25 16:08>
*Pulse Oximetry
SaO2: 99
Oxygen Mode of Delivery: Room air
Patient hypoxic: no
*Critical Care Note
Total Time (30-74mins, 75-104mins- exclusive of procedures): Not Applicable
<Nataly Cleaning MD, Resident - Last Filed: 03/27/25 16:08>
Update Note
Update Note:
Problem List:
Inability to walk
right lower extremity weakness
reduced reflexes at the patella
active metastases of the L1 and L2 vertebral spine
recently received radiation treatment
Plan:
CBC and CMP ordered
IV fluid support
analgesics to control back pain
antiemetics to control nausea
Differential Diagnoses:
Spinal stenosis at L1 and L2
metastatic bone disease of the vertebra
Radiology:
- PET/CT skull/thigh conducted on 02/27/25:
Mildly FDG avid right thyroid lobe nodule may reflect primary thyroid neoplasm.
Several mild to moderately FDG avid bilateral pulmonary nodules as detailed, overall increased in size compared to prior CT chest exam 12/12/2024.
Progressed pathologic L2 compression fracture and osseous metastasis of L1.
Focal increased FDG activity within the posterior right shoulder musculature suspicious for metastatic deposit.
Findings indicate interval progression of disease.
- Abdomen/pelvis CT conducted on 03/19/2025:
Osseous metastases of the L1 and L2 vertebra, both with contiguous malignant extraosseous soft tissue invading the spinal canal and the left psoas muscle. Moderate pathologic compression fracture of L2. Malignant soft tissue in the spinal canal
with secondary severe spinal canal stenosis at L2, and mild spinal canal stenosis at L1.
Left nephrectomy for renal cell carcinoma.
EKG: normal sinus rhythm, normal EKG
Labs:
CBC shows leukocytosis with a white blood cell count of 13.9 and hemoglobinemia with a hemoglobin of 12.5
CMP noted for hyperkalemia with a potassium of 5.3, and acute kidney injury with a creatinine of 2.9 compared to a baseline of 1.1-1.3 on prior lab work.
Updates:
Most recent CT of the abdomen and pelvis conducted on 03/19/2025 showed malignant soft tissue in the spinal canal with secondary severe spinal canal stenosis at L2 with mild spinal canal stenosis at L1
discussed with orthopedics and neurosurgery - they recommended a lumbar MRI for further evaluation. MRI ordered
patient would like to be transferred to [facility] neurosurgery for continuity of care. Reached out to [facility] neurosurgery who have excepted the transfer based on Presentation, physical exam, and imaging. patient will receive MRI
while at [facility] if able to be scanned prior to departure.
ED Attending Note
<Nataly Cleaning MD, Resident - Last Filed: 03/27/25 16:08>
-
Portions of this chart may have been created with voice recognition software.� Occasional wrong word or��sound alike� substitutions may have occurred due to the inherent limitations of voice recognition software.
<Sandip Peacock DO - Last Filed: 03/27/25 09:57>
ED Attending Note
Patient seen and examined by attending physician: Yes
I performed a history and physical exam of patient and discussed management with resident, I reviewed resident's note and agree with documented findings and plan of care.: Yes
ED Attending Note:
I evaluated the patient at bedside. The patient has increasing weakness to the left lower extremity along with ongoing pain. He also has new weakness to the right lower extremity. He seems to have some decreased strength against resistance into
flexion of both lower extremities. His creatinine is newly elevated with a creatinine now of 2.9. Potassium 5.3, white count 13.9 creatinine 2.9. EKG shows a normal sinus rhythm with no hyperkalemic kind of findings. He is given IV fluids and
pain control. On exam, he is decreased flexion at the left hip and decreased L4 reflexes. L5 and S1 strength are near normal. Case discussed with on-call neurosurgery and on-call orthopedics.
I spoke to the over the phone. I spoke to Dr. Davalos, on-call orthopedics who states that his service cannot help. I also spoke to Dr. Nichols covering for neurosurgery. I spoke to the who now tells me the patient is known to
[facility]. We are reaching out to [facility] to see if we could transfer him there. I also inquired with Dr. Holley if we can get an MRI emergently today�he has authorized this and study has been ordered. Will start steroids at recommendation of oncology.
Discharge Plan
Departure
Patient Disposition: Acute Care Hospital
Date of Disposition: 03/27/25
Time of Disposition: 08:51
Discharge Problem:
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
Prescriptions:
No Action
acetaminophen [Tylenol Extra Strength] 500 mg Tablet
1,000 mg PO QID PRN (Reason: pain)
bupropion HCl [Wellbutrin XL] 300 mg Tablet Extended Release 24 Hr
300 mg PO DAILY
oxycodone-acetaminophen [Endocet] 5-325 mg tablet
1 tab PO Q8H PRN (Reason: Pain) Qty: 7 0RF
dexamethasone [Decadron] 4 mg Tablet
4 mg PO BID
morphine [MS Contin] 15 mg tablet extended release
15 mg PO Q12H Qty: 10 0RF
naloxone [Narcan] 4 mg/actuation [place],Non-Aerosol
4 mg INTRANASAL DIRECTED Qty: 2 0RF
Referrals:
Dayanna Ashley DO [Family Provider, Hematology / Oncology]
Hospital Transfer
Other hospital: [facility] Neurosurgery
I certify that the patient requires transfer: Yes
Discussed case with accepting physician: Yes
Reason for transfer: availability of service
Interventions
Interventions:
*Risk Screen - Suicide Last Done: 03/27/25 06:54
*General Assessment Last Done: 03/27/25 06:54
*Neglect/Abuse Screening Last Done: 03/27/25 06:54
*ED- Fall Risk Assessment Last Done: 03/27/25 06:57
*ED COVID-19 Vaccine History Last Done: 03/27/25 06:57
*Nursing Disposition Last Done: 03/27/25 11:11
ED- Cardiac Assessment Last Done: 03/27/25 07:09
ED- Neurological Assessment Last Done: 03/27/25 07:09
ED- Pulmonary Assessment Last Done: 03/27/25 07:09
Discharge Date and Time
Discharge Date/Time: 03/27/25 11:53
Print Language: KENYAN
[2025-03-27] MEDS: NSS 500 IV (07:17)
[2025-03-27 07:18] LABS: Hematocrit 37.6 % (39.0-52.0); Hemoglobin 12.5 g/dL (13.0-18.0); Mean Corp Hgb Conc. 33.2 g/dL (33.0-37.0); Mean Corpuscular Volume 78.8 fL (80.0-94.0); Nucleated Red Blood Cells % 0 % (-); Platelet Count 237 10^3/uL (130-400); Red Cell Dist. Width 18.6 % (11.5-14.5)
[2025-03-27] MEDS: TORADOL 15 MG IV (07:25)
[2025-03-27 07:38] LABS: ALT (SGPT) 29 U/L (0-50); AST (SGOT) 28 U/L (17-59); Albumin 4.0 g/dl (3.5-5.0); Alkaline Phosphatase 106 U/L (38-126); Blood Urea Nitrogen 72 mg/dl (9-20); Calcium 9.5 mg/dl (8.4-10.2); Carbon Dioxide 20 mmol/L (22-30); Chloride 100 mmol/L (98-107); Estimated Creatinine Clearance 28 ml/min; Glucose 141 mg/dl (70-99); Potassium 5.3 mmol/L (3.5-5.1); Sodium 134 mmol/L (135-145); Total Protein 7.0 g/dl (6.3-8.2); eGFR 25.40
[2025-03-27 08:00] VITALS: BP 136/97
[2025-03-27] MEDS: DILAUDID 1 MG IV (08:04)
[2025-03-27] MEDS: DECADRON 10 MG IV (08:59)
[2025-03-27 09:00] VITALS: BP 131/93
[2025-03-27] MEDS: ZOFRAN 4 MG IV (09:00)
[2025-03-27] MEDS: NSS 1000 IV (09:00)
[2025-03-27 10:00] VITALS: BP 127/90
== END 2025-03-27 11:53 | disposition short-term general hospital (02) ==
LOC: EMR 06:53
PROVIDERS: EMERGENCY PHYSICIAN Emergency Medicine; FAMILY PHYSICIAN Internal Medicine Hematology & Oncology
DX: C79.51 Secondary malignant neoplasm of bone (principal); D72.829 Elevated white blood cell count, unspecified; D59.9 Acquired hemolytic anemia, unspecified; E87.5 Hyperkalemia; N17.9 Acute kidney failure, unspecified; C64.9 Malignant neoplasm of unspecified kidney, except renal pelvis; E78.5 Hyperlipidemia, unspecified; M84.58XA Pathological fracture in neoplastic disease, other specified site, initial encounter for fracture; M48.061 Spinal stenosis, lumbar region without neurogenic claudication; F17.200 Nicotine dependence, unspecified, uncomplicated; Z79.52 Long term (current) use of systemic steroids; Z90.5 Acquired absence of kidney; Z92.3 Personal history of irradiation; T38.0X6A Underdosing of glucocorticoids and synthetic analogues, initial encounter; T40.2X6A Underdosing of other opioids, initial encounter; Z91.128 Patient's intentional underdosing of medication regimen for other reason
CPT/HCPCS: 99285; 96374; 96375 ×3; 96361 ×5; 80053; 85025; 93005

== ENCOUNTER 2025-05-06 17:42 | Inpatient (IN) | payer BC, MEDICAID, SELFPAY ==
[2025-05-06 17:45] VITALS: BP 137/90
--- NOTE | 2025-05-06 18:19 | HPS.HSE ---
Family Physician
-
Family Physician: Patricia River
Chief Complaint
-
Metastatic Renal Cell Carcinoma
History of Present Illness
Patient is a 49 y/o male past medical history of metastatic renal cell carcinoma who transferred from [facility] to today following a prolonged hospitalization. Patient initially presented to [facility] on March 27 with increasing lower
extremity weakness. He was found to have worsening malignant soft tissue in the spinal canal with severe spinal stenosis and he was urgently transferred to [facility] for neurosurgical intervention. Patient initially had artery embolization and then
underwent spinal surgery. Hospitalization was complicated by spinal wound infection with wound dehiscence and MSSA bacteremia for which patient underwent washout with placement of wound vac and treated with prolonged coarse of IV Ancef. Patient
has unilateral right kidney and was found to have hydronephrosis who with a JJ stent was placed. Patient also had small bore nasogastric feeding tube placement for supplemental nutrition due to poor oral intake. Due patient's prolonged
hospitalization he is extremely deconditioned and requiring continue physical therapy.
Medical History
Past Medical History
Past Medical History: Reports Other
Additional Past Medical History:
Metastatic Renal Cell Carcinoma
MSSA Bacteremia
Anxiety / Depression
Chronic Pain with Opioid Dependence
Past Surgical History: Reports Other
Additional Past Surgical History:
Left Nephrectomy
Left L1 & B/L L2 Segmental Artery Embolization (03/30/25)
T12-L2 laminectomy, L L1/2 corpectomy, T11-L4 fusion (03/31/25)
Thoracolumbar Wound Washout with PRS closure (04/30/2025)
Cystoscopy with JJ Stent placement (05/05/2025)
Social History
Tobacco: Former Smoker
Personal:
Family History
Family History: Not pertinent
Allergies / Home Medications
Allergies reflects when Allergies were last updated in [employer].
Home Medications with original date entered in [employer]
Allergy/Medication List:
Allergies
Allergy/AdvReac Type Severity Reaction Status Date / Time
No Known Allergies Allergy Verified 03/27/25 06:56
Home Medications
Buproprion 50mg/5ml 10 ml feeding tube TID 05/06/25
Finasteride 5mg/5ml 5 ml feeding tube DAILY 05/06/25
acetaminophen 160 mg/5 mL (5 mL) oral solution 640 mg feeding tube Q4HPRN PRN mild pain 05/06/25
ascorbic acid (vitamin C) 250 mg tablet (Vitamin C) 250 mg feeding tube DAILY 05/06/25
baclofen 10 mg/5 mL (2 mg/mL) oral solution 5 mg feeding tube TIDPRN PRN hiccups 05/06/25
bisacodyl 10 mg rectal suppository (Dulcolax (bisacodyl)) 10 mg DC DAILYPRN PRN constipation 05/06/25
calcium carbonate 1,000 mg PO Q8HPRN PRN heartburn 05/06/25
cefazolin 2 gram/20 mL in sterile water intravenous syringe 20 ml IV BID 05/06/25
folic acid 1 mg tablet 1 mg feeding tube DAILY 05/06/25
heparin (porcine) 5,000 unit/mL injection syringe 5,000 unit SC BID 05/06/25
insulin aspart U-100 100 unit/mL subcutaneous solution 0 - 6 sliding scale dose SC BID 05/06/25
lansoprazole 15 mg delayed release,disintegrating tablet 15 mg feeding tube DAILY 05/06/25
lidocaine 5 % topical patch 2 patch topical DAILY 05/06/25
lorazepam 0.5 mg tablet 0.5 mg PO TIDPRN PRN anixety 05/06/25
morphine 15 mg tablet,extended release (MS Contin) 15 mg PO Q12H 05/06/25
ondansetron HCl (PF) 4 mg/2 mL injection solution 4 mg IM TID nausea 05/06/25
oxybutynin chloride 5 mg tablet 5 mg PO TIDPRN PRN colic pain from stent 05/06/25
oxycodone 5 mg/5 mL oral solution 5 mg PO Q4HPRN PRN severe pains 05/06/25
oxycodone 5 mg/5 mL oral solution 10 mg feeding tube Q4HPRN PRN severe pain 05/06/25
phenol 1.4 % mucosal aerosol spray 1 spray mucous membrane Q2HPRN PRN sore throat 05/06/25
polyethylene glycol 3350 17 gram oral powder packet (Miralax) 17 g feeding tube BID Constipation 05/06/25
prochlorperazine edisylate 10 mg/2 mL (5 mg/mL) injection solution 10 mg IM Q6HPRN PRN nausea 05/06/25
scopolamine base 1 mg over 3 days transdermal patch 1 patch transdermal Q3D nausea 05/06/25
sennosides 8.8 mg/5 mL oral syrup (senna) 17.6 mg feeding tube BID Constipation 05/06/25
sodium citrate-citric acid 500 mg-334 mg/5 mL oral solution 30 ml feeding tube BID 05/06/25
thiamine HCl (vitamin B1) 100 mg tablet 100 mg feeding tube DAILY Supplement 05/06/25
zinc oxide 40 % topical ointment 1 applic topical DAILYPRN PRN damage skin 05/06/25
zinc sulfate 50 mg zinc (220 mg) capsule 50 mg feeding tube DAILY 05/06/25
Review of Systems
-
A 12 point ROS was completed and negative except as noted: Yes
Constitutional: Denies Fever
Respiratory: Denies Cough or Trouble Breathing
Cardiac: Denies Chest Pain or Palpitations
Abdomen/GI: Reports Constipated; Denies Abdominal Pain or Nausea (Patient reports episodes of gagging triggered by NGT)
Physical Exam
Vital Signs
Vital Signs
Temp Pulse Resp BP Pulse Ox
98.4 F 93 16 137/90 99
05/06/25 17:45 05/06/25 17:45 05/06/25 17:45 05/06/25 17:45 05/06/25 17:45
Physical Exam
General: Comfortable, Conversant and Other (Appears pale)
HEENT: Anicteric and Other (Small bore nasogastric feeding tube)
Respiratory: Clear and Non Labored Respirations
Cardiac: S1/S2 and Regular Rhythm
GI: Soft and Non Tender
Rectal: Deferred by Provider
Genito-urinary: Eldridge
Musculoskeletal: No Clubbing and No Cyanosis
Skin: Warm, Dry and Other (Wound vac in place to lower back; JEEVAN drains x 2 )
Neuro: Awake, Alert, Oriented and Nonfocal/grossly intact
Psych: Other (Flat Affect)
Laboratory Results
-
Labs Reviewed 05/06/2025
WBC 13.8
Hgb 8.9
Hct 27
Plt 341
Na 149
K 4.3
Cl 113
CO2 15
BUN 51
Cr 4.53
Data Reviewed
-
Lab Data: Labs Reviewed by me
Old Records: Reviewed (Extensive records from [facility] reviewed)
Impression/Plan
-
Metastatic Renal Cell Carcinoma with Spinal Column Metastasis and subsequent Spinal Infection s/p Left L1 & B/L L2 Segmental Artery Embolization (03/30/25); T12-L2 laminectomy, Left L1/2 corpectomy, T11-L4 fusion (03/31/25); Thoracolumbar Wound
Washout with PRS closure (04/30/2025)
-Consult Wound Care
-Continue Wound Vac until May 11 per [facility] Plastic Surgery Notes
-Continue Vitamin C and Zinc for wound healing
-Patient known to Dr. Ashley and Dr. Kline
MSSA Bacteremia secondary to Spinal Infection
-Continue cefazolin 2gm q12h through Jun 10
-Will likely need chronic cefadroxil afterwards
-Follow-up schedule with ID at [place]
Acute Kidney Injury with Hyperkalemia and Metabolic Acidosis
-Notes indicate likely tubular injury due to sepsis
-Consult Nephrology
-Continue sodium citrate as per transfer paperwork
-Notes indicate patient was receiving Lokelma however this was not listed on transfer medication list - Hold for now
-Monitor electrolytes
Right Hydronephrosis s/p JJ Stent on 05/05/25
Urinary Retention
-Eldridge placed at [facility] - Plan for voiding trial prior to discharge
-Continue tamsulosin
Pain Management
-Patient previously on Morphine ER which was switched to Morphine IR when DHT was placed
-Patient had been refusing scheduled doses of narcotics
-Continue oxycodone PRN
Severe Protein Calorie Malnutrition - DHT placed at [place]
-Allow regular diet with tube feeding for supplementation
-Consult Dietary
Anxiety / Depression
-Continue bupropion
Deconditioning
-Consult PT/OT
DVT proph: SC Heparin
Code Status: Full Code
--- NOTE | 2025-05-06 18:32 | W.PN.UPDATE ---
Update Note
Progress Note Update
This note serves as an addendum to the H&P by price analyst Radha DALY
HPI
49M Unilateral Rt Kidney HX L nephrectomy ( December 2024) then furtehr metastatic RC Ca t spine , f/u with Rad onco.
He came to ER 03/27/25 for Aline weakness found to have L1- L2 mass and urgent TF to Neuro surgery ( Dr Garza ) on same day 03/27/25. He underwent extensive Neuro spine surgery. [facility] hospital course is further complicated by post of surgical
site MSSA wound infection and MSSA bacteremia. Currently IV Ancef.
Report poor PO intake
Thus placed DHT since Sunday (04/28/25) and started TF
Reports he gag when he swallows but able to swallow
Reports Bowel and bladder control
Request TF to from [facility] : case hospitalist [facility] CRM director, [facility] director of casework department/director and Lead hospitalist prior to TF
- Per case supervisor - she endorse patient is appropriate to be TF to and has necessary acceptance, has MA f or lateral TF
- Case is accepted to Hospitalist service
- [facility] Neuro surgery: Wilfredo Cruz ( Neuro Surg HF - [phone]) Nathaniel Herron ( Neuro surgeon )
Relevant VS
Temp Pulse Resp BP Pulse Ox
98.4 F 93 16 137/90 99
05/06/25 17:45 05/06/25 17:45 05/06/25 17:45 05/06/25 17:45 05/06/25 17:45
PE
Gen: Not toxic
HEENT: DHT thru the Lt nostril
Neck: supple
Lungs: CTA
Cor: RRR S1 S2
Abdomen:�soft NT, NG
: + chr indwelling F cath
CERTIFIED SUBSTANCE ABUSE COUNSELOR: AAO3
MS: b/l Aline symmetric motor strength
Psych:flat affect
Relevant data
Pending admission labs
NO PRIOR hospitalist admission:
ASSESSMENT & PLAN
Pending Rx reconciliation
- cont all current Meds from [facility] TF
Post of surgical site MSSA wound infection
Recent MSSA bacteremia
S/P plastic I & D of wound infection COREMAKER
- Currently IV Ancef
- pain control per COREMAKER
- WD care consult
HX metastatic Renal cell CA to spine
s/p multiples spine surgery at [facility]
Known to [facility]
- PT/OT
Unilateral Rt Kidney with ureteral stent for obstructive nephropathy
S/P Lt Nephrectomy
- f/u BMPs
Gag with swallowing
Nutrition is via DHT feeding.
- Geological Manager consult
Per patient - can shuffle 10- 15 steps with walker
- PT/OT
- CRM follow up
- Schedule Clerk consult - acute vs subacute rehab
DVT Px - SQH
Full code
IP MS
[2025-05-06] MEDS: HEPARIN SC (22:01)
[2025-05-06] MEDS: ANCEF 10 IV (22:30)
[2025-05-06] MEDS: ZOFRAN 4 MG IV (22:41)
[2025-05-06 23:00] VITALS: BP 141/87
[2025-05-07 01:27] VITALS: BMI 22.3
[2025-05-07 06:39] LABS: Hematocrit 26.6 % (39.0-52.0); Hemoglobin 8.3 g/dL (13.0-18.0); Mean Corp Hgb Conc. 31.2 g/dL (33.0-37.0); Mean Corpuscular Volume 95.3 fL (80.0-94.0); Platelet Count 323 10^3/uL (130-400); Red Cell Dist. Width 17.7 % (11.5-14.5)
[2025-05-07 07:09] LABS: Glucose - Point of Care 89 mg/dl (70-99)
[2025-05-07 07:31] LABS: ALT (SGPT) < 10 U/L (0-50); AST (SGOT) 15 U/L (17-59); Albumin 2.3 g/dl (3.5-5.0); Alkaline Phosphatase 114 U/L (38-126); Blood Urea Nitrogen 75 mg/dl (9-20); Calcium 8.5 mg/dl (8.4-10.2); Carbon Dioxide 14 mmol/L (22-30); Chloride 107 mmol/L (98-107); Estimated Creatinine Clearance 18 ml/min; Glucose 74 mg/dl (70-99); Iron 47 ug/dl (49-181); Potassium 4.7 mmol/L (3.5-5.1); Sodium 136 mmol/L (135-145); Total Protein 5.8 g/dl (6.3-8.2); eGFR 13.87
[2025-05-07 07:37] LABS: Total Iron Binding Capacity 115 ug/dl (261-462)
[2025-05-07 07:38] VITALS: BP 134/86
--- NOTE | 2025-05-07 07:44 | PTCARENOTE ---
Per report from day shift RN, patient refused medications and care at previous facility. Attempted to administered scheduled medications, patient refusing despite education. Patient also refusing skin assessment. Patient agreeable to taking Ancef IV
and sugar checked as well as PRN Zofran. Plan of care ongoing.
[2025-05-07 07:55] LABS: Ferritin 628.0 ng/ml (17.9-464.0)
[2025-05-07 08:26] LABS: Folate 9.8 ng/ml (2.76-20); Vitamin B12 860 pg/ml (239-931)
[2025-05-07 09:12] LABS: Glycohemoglobin (HgbA1c) 5.4 % (4.0-5.9)
[2025-05-07] MEDS: ANCEF 10 IV ×2 (09:33→20:41)
--- NOTE | 2025-05-07 10:17 | WOUNDNOTE ---
SACRAL/COCCYX 1975 [id number]
--- NOTE | 2025-05-07 10:19 | WOUNDNOTE ---
POSTERIOR VIEW - WOUND VAC and JEEVAN TUBES 1973, [id number]
--- NOTE | 2025-05-07 10:29 | W.PN.HOSP.TC ---
Today's Communication/Plan
-
Renal sonogram
Urine sodium
IV fluids with bicarb
Speech and swallow evaluation
Remove DHT
Regular diet along with antiemetics
Continue IV antibiotics
Continue wound care monitoring JEEVAN drain output
PT assessment
Nephrology
Oncology
Assessment / Plan
Assessment / Plan
Impression:
Metastatic renal cell carcinoma.
-Status post left nephrectomy
MSSA bacteremia secondary to spinal wound infection.
Acute kidney injury.
Acute on chronic metabolic acidosis.
Right hydronephrosis.
Acute urinary retention requiring Eldridge catheter.
Malignant pain requiring opiates but
Severe protein calorie malnutrition.
Anxiety/depression
Plan
Metastatic Renal Cell Carcinoma with Spinal Column Metastasis and subsequent Spinal Infection s/p Left L1 & B/L L2 Segmental Artery Embolization (03/30/25); T12-L2 laminectomy, Left L1/2 corpectomy, T11-L4 fusion (03/31/25); Thoracolumbar Wound
Washout with PRS closure (04/30/2025).
In review of her recent PET/CT on 02/27/2025 there is also high FDG activity/pulmonary nodule left upper lobe.
Consult oncology for further staging and treatment options
MSSA Bacteremia secondary to Spinal Infection
-Continue cefazolin 2gm q12h through Jun 10
-Will likely need chronic cefadroxil afterwards
-Follow-up schedule with ID at [facility]
Continue wound care.
� Bilateral JEEVAN drain, monitor output daily. Consider removing drains if output less than 30 mL in 2 consecutive days
� Continue wound VAC plan through May 11 as per [facility] plastic surgery service
Acute kidney injury.
Status post left nephrectomy for RCC.
Acute urine retention
Obstructive uropathy with right JJ stent placed on 05/05/2025
Elevated anion gap metabolic acidosis.
? If CKD
Check urinalysis
Check urine sodium.
Check renal sonogram. May need additional imaging with CT scan
Suspect low volume status since elevated BUN.
Start IV fluids with bicarbonate
Nephrology evaluation
Maintain Eldridge catheter
Continue Flomax
Chronic normocytic anemia
Iron studies indicative of mild iron deficiency and anemia of chronic disease
Check EPO level.
Follow hemoglobin
Pain Management
-Patient previously on Morphine ER which was switched to Morphine IR when DHT was placed
-Patient had been refusing scheduled doses of narcotics
-Continue oxycodone PRN
Severe Protein Calorie Malnutrition - DHT placed at [facility]
Patient reports no swallowing issues, although with persistent nausea and vomiting and metallic taste predicting sufficient oral intake.
-Allow regular diet with tube feeding for supplementation
-Consult Dietary
Anxiety / Depression
-Continue bupropion
Deconditioning
-Consult PT/OT
DVT proph: SC Heparin
Code Status: Full Code
Anticipated Discharge: 24 - 48 hours
Subjective/Interval History
-
Date of Service: May 07, 2025
Objective Data
-
Labs:
Laboratory Results
05/07/25
05:59
WBC 13.0 H
Hgb 8.3 L
Hct 26.6 L
Plt Count 323
Sodium 136
Potassium 4.7
Chloride 107
Carbon Dioxide 14 L*
BUN 75 H
Creatinine 4.8 H*
Glucose 74
Calcium 8.5
Total Bilirubin 0.3
AST 15 L
ALT < 10
Alkaline Phosphatase 114
Vital Signs:
Vital Signs
Temp Pulse Resp BP Pulse Ox
97.3 F 90 16 134/86 100
05/07/25 07:38 05/07/25 07:38 05/07/25 07:38 05/07/25 07:38 05/07/25 07:38
I&O
05/06/25 05/07/25 05/08/25
06:59 06:59 06:59
Output Total 1635 / 1635
Balance -1635 / -1635
Physical Exam
-
General: Well Developed and No Apparent Distress
HEENT: Normocephalic, Atraumatic and Moist Mucous Membranes
Respiratory: Clear to Auscultation
Cardiac: Regular Rhythm and S1/S2; Negative Murmur, Rub or Gallop
GI: Soft, Nontender, Nondistended and Normal Bowel Sounds; Negative Organomegaly
Rectal: Deferred by Provider
Genito-urinary: Eldridge
Musculoskeletal: No Clubbing, No Cyanosis, No Edema and Other (Bilateral paraspinal/T-spine level JEEVAN drain. Right-sided T-spine level wound with wound VAC in place)
Skin: Negative Rash
Neuro: Nonfocal/Grossly Intact
--- NOTE | 2025-05-07 10:56 | CON.ONC ---
Consultation
-
Date Consultation Requested: 05/07/25
Date Consultation Performed: 05/07/25
Impression
Impression
Metastatic renal cell carcinoma
Multifactorial anemia CKD and AOCD
MSSA bacteremia secondary to spinal infection
Renal insufficiency secondary acute kidney injury JJ stent and nephrectomy
Pain
Plan
Plan
Titrate for pain management
Continue NG tube feeding
Nephrology evaluation
Anticipate outpatient follow-up to initiate systemic therapy
Monitor CBC
Continue antibiotics
Will follow
Patient History
History of Present Illness
Patient is a 49 y/o male past medical history of metastatic renal cell carcinoma who transferred from [facility] to today following a prolonged hospitalization. Patient initially presented to [facility] on March 27 with increasing lower
extremity weakness. He was found to have worsening malignant soft tissue in the spinal canal with severe spinal stenosis and he was urgently transferred to [facility] for neurosurgical intervention. Patient initially had artery embolization and then
underwent spinal surgery. Hospitalization was complicated by spinal wound infection with wound dehiscence and MSSA bacteremia for which patient underwent washout with placement of wound vac and treated with prolonged coarse of IV Ancef. Patient
has unilateral right kidney and was found to have hydronephrosis who with a JJ stent was placed. Patient also had small bore nasogastric feeding tube placement for supplemental nutrition due to poor oral intake. Due patient's prolonged
hospitalization he is extremely deconditioned and requiring continue physical therapy.
Past-Medical/Surgical History
Past Medical History:
Metastatic Renal Cell Carcinoma
MSSA Bacteremia
Anxiety / Depression
Chronic Pain with Opioid Dependence
Past Surgical History:
Left Nephrectomy
Left L1 & B/L L2 Segmental Artery Embolization (03/30/25)
T12-L2 laminectomy, L L1/2 corpectomy, T11-L4 fusion (03/31/25)
Thoracolumbar Wound Washout with PRS closure (04/30/2025)
Cystoscopy with JJ Stent placement (05/05/2025
Patient Medication
�Medication �Instructions �Recorded �Confirmed �Last Taken �Type
Buproprion 50mg/5ml 10 ml feeding tube TID 05/06/25 05/06/25 05/05/25 History
Finasteride 5mg/5ml 5 ml feeding tube DAILY 05/06/25 05/06/25 05/02/25 History
acetaminophen 160 mg/5 mL (5 mL) 640 mg feeding tube Q4HPRN PRN 05/06/25 05/06/25 Unknown History
oral solution mild pain
ascorbic acid (vitamin C) 250 mg 250 mg feeding tube DAILY 05/06/25 05/06/25 05/02/25 History
tablet (Vitamin C)
baclofen 10 mg/5 mL (2 mg/mL) oral 5 mg feeding tube TIDPRN PRN 05/06/25 05/06/25 Unknown History
solution hiccups
bisacodyl 10 mg rectal suppository 10 mg SC DAILYPRN PRN constipation 05/06/25 05/06/25 Unknown History
(Dulcolax (bisacodyl))
calcium carbonate 1,000 mg PO Q8HPRN PRN heartburn 05/06/25 05/06/25 Unknown History
cefazolin 2 gram/20 mL in sterile 20 ml IV BID 05/06/25 05/06/25 05/06/25 History
water intravenous syringe
folic acid 1 mg tablet 1 mg feeding tube DAILY 05/06/25 05/06/25 05/02/25 History
heparin (porcine) 5,000 unit/mL 5,000 unit SC BID 05/06/25 05/06/25 05/06/25 History
injection syringe
insulin aspart U-100 100 unit/mL 0 - 6 sliding scale dose SC BID 05/06/25 05/06/25 05/06/25 History
subcutaneous solution
lansoprazole 15 mg delayed 15 mg feeding tube DAILY 05/06/25 05/06/25 05/04/25 History
release,disintegrating tablet
lidocaine 5 % topical patch 2 patch topical DAILY 05/06/25 05/06/25 05/06/25 History
lorazepam 0.5 mg tablet 0.5 mg PO TIDPRN PRN anixety 05/06/25 05/06/25 Unknown History
morphine 15 mg tablet,extended 15 mg PO Q12H 05/06/25 05/06/25 Unknown History
release (MS Contin)
ondansetron HCl (PF) 4 mg/2 mL 4 mg IM TID nausea 05/06/25 05/06/25 05/06/25 History
injection solution
oxybutynin chloride 5 mg tablet 5 mg PO TIDPRN PRN colic pain from 05/06/25 05/06/25 Unknown History
stent
oxycodone 5 mg/5 mL oral solution 5 mg PO Q4HPRN PRN severe pains 05/06/25 05/06/25 Unknown History
oxycodone 5 mg/5 mL oral solution 10 mg feeding tube Q4HPRN PRN 05/06/25 05/06/25 Unknown History
severe pain
phenol 1.4 % mucosal aerosol spray 1 spray mucous membrane Q2HPRN PRN 05/06/25 05/06/25 05/01/25 History
sore throat
polyethylene glycol 3350 17 gram 17 g feeding tube BID Constipation 05/06/25 05/06/25 05/01/25 History
oral powder packet (Miralax)
prochlorperazine edisylate 10 mg/2 10 mg IM Q6HPRN PRN nausea 05/06/25 05/06/25 Unknown History
mL (5 mg/mL) injection solution
scopolamine base 1 mg over 3 days 1 patch transdermal Q3D nausea 05/06/25 05/06/25 05/04/25 History
transdermal patch
sennosides 8.8 mg/5 mL oral syrup 17.6 mg feeding tube BID 05/06/25 05/06/25 05/01/25 History
(senna) Constipation
sodium citrate-citric acid 500 30 ml feeding tube BID 05/06/25 05/06/25 05/02/25 History
mg-334 mg/5 mL oral solution
thiamine HCl (vitamin B1) 100 mg 100 mg feeding tube DAILY 05/06/25 05/06/25 05/02/25 History
tablet Supplement
zinc oxide 40 % topical ointment 1 applic topical DAILYPRN PRN 05/06/25 05/06/25 05/02/25 History
damage skin
zinc sulfate 50 mg zinc (220 mg) 50 mg feeding tube DAILY 05/06/25 05/06/25 05/02/25 History
capsule
Active Medications
Generic Name Dose Route Start Last Admin
Trade Name Freq PRN Reason Stop Dose Admin
Acetaminophen 650 mg 05/06/25 19:04
Acetaminophen (Oral Solution) 650 Mg/20.3 Ml Cup TUBE 06/03/25 19:03
Q4HPRN PRN
mild pain / fever
Ascorbic Acid 250 mg 05/07/25 08:00
Ascorbic Acid 250 Mg Tablet TUBE 06/04/25 07:59
DAILY BITA
Bupropion HCl 100 mg 05/06/25 22:00 05/06/25 22:02
Bupropion Regular Release 100 Mg Tablet TUBE 06/03/25 21:59 Not Given
TID BITA
Dextrose 12.5 grams 05/07/25 00:54
Dextrose 50% (0.5 Grams/Ml) 50 Ml Syringe IV 06/04/25 00:53
Q31VPVA PRN
hypoglycemia
Protocol
Finasteride 5 mg 05/07/25 08:00
Finasteride 5 Mg Tablet TUBE 06/04/25 07:59
DAILY BITA
Glucagon 1 mg 05/07/25 00:54
Glucagon 1 Mg Vial IM 06/04/25 00:53
PRN PRN
hypoglycemia
Protocol
Heparin Sodium 5,000 units 05/06/25 20:00 05/06/25 22:01
Heparin 5,000 Units/Ml 1 Ml Vial SC 06/03/25 19:59 Not Given
Q12 BITA
Cefazolin Sodium 2 grams in 10 mls @ 120 mls/hr 05/06/25 21:00 05/07/25 09:33
Ancef IV 10 mls
Q12 BITA Administration
Sodium Bicarbonate 150 meq/ 1,150 mls @ 100 mls/hr 05/07/25 10:45
Dextrose IV
.[id number] BITA
Insulin Aspart 0 units 05/07/25 07:30
Insulin Aspart Low Resistance 300 Units/3 Ml Pen.Injctr SC 06/04/25 07:29
AC BITA
Protocol
Lansoprazole 15 mg 05/07/25 08:00
Lansoprazole 15 Mg Solutab TUBE 06/04/25 07:59
DAILY BITA
Multivitamins 15 ml 05/07/25 08:00
Multiple Vitamin Oral Liquid 15 Ml Cup TUBE 06/04/25 07:59
DAILY BITA
Ondansetron HCl 4 mg 05/06/25 19:45 05/06/25 22:41
Ondansetron 4 Mg/2 Ml Vial IV 06/03/25 19:44 4 mg
Q6HPRN PRN Administration
NAUSEA/VOMITING
Oxycodone HCl 5 mg 05/06/25 19:10
Oxycodone Oral Solution (5 Mg/5 Ml) Cup TUBE 05/20/25 19:09
Q4HPRN PRN
severe pain
Phenol 1 spray 05/06/25 19:10
Chloraseptic (1.4% Phenol) Throat [place] PO 06/03/25 19:09
Q2HPRN PRN
sore thorat
Polyethylene Glycol 17 grams 05/06/25 20:00 05/06/25 22:01
Polyethylene Glycol Powder 17 Grams Packet TUBE 06/03/25 19:59 Not Given
BID BITA
Sennosides 8.8 mg 05/06/25 20:00 05/06/25 22:01
Sennosides (Senna Syrup) 8.8 Mg/5 Ml Unit Dose Cup TUBE 06/03/25 19:59 Not Given
BID BITA
Sodium Chloride 0 flush 05/06/25 21:00
Sodium Chloride 0.9% (Flush) Syringe IV 06/03/25 20:59
PER PROTOCOL BITA
Tamsulosin HCl 0.4 mg 05/06/25 22:00 05/06/25 22:02
Tamsulosin 0.4 Mg Capsule TUBE 06/03/25 21:59 Not Given
HS BITA
Thiamine HCl 100 mg 05/07/25 08:00
Thiamine 100 Mg Tablet TUBE 06/04/25 07:59
DAILY BITA
Zinc 50 mg 05/07/25 08:00
Zinc 50 Mg (Zinc Sulfate 220 Mg) Capsule TUBE 06/04/25 07:59
DAILY BITA
Review of Systems
-
12 point review systems fails to elicit additional complaints other than those reviewed in the HPI
Physical Exam
-
Physical Exam
General: Comfortable
HEENT: Anicteric and nasogastric feeding tube
Respiratory: Clear and Non Labored Respirations
Cardiac: S1/S2 and Regular Rhythm
GI: Soft and Non Tender
Genito-urinary: Eldridge
Musculoskeletal: No Clubbing and No Cyanosis
Skin: Warm, Dry and Other (Wound vac in place to lower back; JEEVAN drains x 2 )
Neuro: Awake, Alert, Oriented and Nonfocal/grossly intact
Labs
Lab Results
WBC 13.0 10^3/uL (4.8-10.8) H 05/07/25 05:59
RBC 2.79 10^6/uL (4.70-6.10) L 05/07/25 05:59
Hgb 8.3 g/dL (13.0-18.0) L 05/07/25 05:59
Hct 26.6 % (39.0-52.0) L 05/07/25 05:59
MCV 95.3 fL (80.0-94.0) H 05/07/25 05:59
MCH 29.7 pg (27.0-31.0) 05/07/25 05:59
MCHC 31.2 g/dL (33.0-37.0) L 05/07/25 05:59
RDW 17.7 % (11.5-14.5) H 05/07/25 05:59
Plt Count 323 10^3/uL (130-400) 05/07/25 05:59
MPV 10.4 fL (7.4-10.4) 05/07/25 05:59
Creatinine 4.8 mg/dL (0.7-1.3) H* 05/07/25 05:59
Vital Signs
Vital Signs
Temp Pulse Resp BP Pulse Ox
97.3 F 90 16 134/86 100
05/07/25 07:38 05/07/25 07:38 05/07/25 07:38 05/07/25 07:38 05/07/25 07:38
--- NOTE | 2025-05-07 11:28 | WOUNDNOTE ---
WO RN NOTE: Reviewed chart and met with patient, Dr. Michel and RN Mikie at bedside. Spine vac intact with Prevena 125. 2 JEEVAN tube sites intact adjacent to vac with small amount of sanguinous drainage. Spoke to P RN, Patricia who works with surgeon
Heather Liang regarding plan for vac. Patricia said vac is incisional and can be removed on 05/11. Per Patricia's instructions, any open areas of can be covered with Xeroform and covered with dry dressing. Patricia mentioned that vac was placed on 05/05 and
sometimes shuts off early. For this reason, instructions for removing vac were added to orders and supplies left at beside. Clinical Educator Judy and RN Mikie updated. Orders confirmed with Dr. Michel. Patricia can be reached at [phone] with
questions. She requests you text her first as she may be with patients. Spoke to Jenna Diaz and reviewed orders. This typewriter mechanic applied second hand to the Prevena wound vac after speaking with Emily. [facility] RN to follow up with patient on 05/11
Patient with stage 1 to sacral coccyx and some friction appearing skin to buttocks. Bilateral heels intact and adhesive foam was applied as ordered. Will recommend static air overlay and patient is deconditioned and needs assistance with turning.
Patient currently NPO. Eldridge in place for moisture management. Heels off-loaded with pillows under calves. Eldridge in place for moisture management. Will continue to follow during in-patient stay.
[2025-05-07 11:59] LABS: Glucose - Point of Care 92 mg/dl (70-99)
[2025-05-07] MEDS: HEPARIN SC ×2 (12:08→19:48)
[2025-05-07] MEDS: NOVOLOG FLEXPEN-LOW RESISTANCE SC ×3 (12:08→16:56)
--- NOTE | 2025-05-07 12:13 | W.CON.NEPH ---
Consultation
-
Date/Time Consultation Requested: 05/06/25 2215
Date/Time Consultation Performed: 05/07/25 1200
Requesting Provider: Chas Diaz
Performing Provider: Corinna Ron
Reason for Consultation: POLA
Medical History
-
Chief Complaint: Met renal cancer
History of Present Illness:
49 y/o male past medical history of metastatic renal cell carcinoma wiht h/o left nephrectomy in this summer who transferred from [facility] to on 05/06 following a prolonged hospitalization. Patient initially presented to [facility] on
March 27 with increasing lower extremity weakness. He was found to have worsening malignant soft tissue in the spinal canal with severe spinal stenosis and he was urgently transferred to [facility] for neurosurgical intervention. Patient initially
had artery embolization and then underwent spinal surgery. Hospitalization was complicated by spinal wound infection with wound dehiscence and MSSA bacteremia for which patient underwent washout with placement of wound vac and treated with
prolonged coarse of IV Ancef. Patient has unilateral right kidney and was found to have hydronephrosis and JJ stent was placed on 05/05. Patient also had small bore nasogastric feeding tube placement for supplemental nutrition due to poor oral
intake. Due patient's prolonged hospitalization he is extremely deconditioned.
and requiring continue physical therapy. He offers no nausea or vomiting. Was feeling uncomfortable with the nasogastric tube which she is currently removed. He offers no chest pain or shortness of breath. No abdominal pain. He has a Eldridge
catheter placed last few days, reports before that had no dysuria. no fevers.
On laboratory data creatinine noted at 4.8, bicarbonate 14, BUN 75. His last lab work that I can compare from March 27 was creatinine 2.9, BUN 72.
Past Medical History
Metastatic Renal Cell Carcinoma
MSSA Bacteremia
Anxiety / Depression
Chronic Pain with Opioid Dependence
Past Surgical History: Other (Left Nephrectomy Left L1 & B/L L2 Segmental Artery Embolization (03/30/25) T12-L2 laminectomy, L L1/2 corpectomy, T11-L4 fusion (03/31/25) Thoracolumbar Wound Washout with PRS closure (04/30/2025) Cystoscopy with JJ
Stent placement (05/05/2025))
Social History
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
Tobacco: Former Smoker
Alcohol: None
Personal:
Employment: Employed
Family History
Family History: Not Pertinent
Allergies / Home Medications
Allergy/AdvReac Type Severity Reaction Status Date / Time
No Known Allergies Allergy Verified 03/27/25 06:56
�Medication �Instructions �Recorded �Confirmed �Type
Buproprion 50mg/5ml 10 ml feeding tube TID 05/06/25 05/06/25 History
Finasteride 5mg/5ml 5 ml feeding tube DAILY 05/06/25 05/06/25 History
acetaminophen 160 mg/5 mL (5 mL) 640 mg feeding tube Q4HPRN PRN 05/06/25 05/06/25 History
oral solution mild pain
ascorbic acid (vitamin C) 250 mg 250 mg feeding tube DAILY 05/06/25 05/06/25 History
tablet (Vitamin C)
baclofen 10 mg/5 mL (2 mg/mL) oral 5 mg feeding tube TIDPRN PRN 05/06/25 05/06/25 History
solution hiccups
bisacodyl 10 mg rectal suppository 10 mg MI DAILYPRN PRN constipation 05/06/25 05/06/25 History
(Dulcolax (bisacodyl))
calcium carbonate 1,000 mg PO Q8HPRN PRN heartburn 05/06/25 05/06/25 History
cefazolin 2 gram/20 mL in sterile 20 ml IV BID 05/06/25 05/06/25 History
water intravenous syringe
folic acid 1 mg tablet 1 mg feeding tube DAILY 05/06/25 05/06/25 History
heparin (porcine) 5,000 unit/mL 5,000 unit SC BID 05/06/25 05/06/25 History
injection syringe
insulin aspart U-100 100 unit/mL 0 - 6 sliding scale dose SC BID 05/06/25 05/06/25 History
subcutaneous solution
lansoprazole 15 mg delayed 15 mg feeding tube DAILY 05/06/25 05/06/25 History
release,disintegrating tablet
lidocaine 5 % topical patch 2 patch topical DAILY 05/06/25 05/06/25 History
lorazepam 0.5 mg tablet 0.5 mg PO TIDPRN PRN anixety 05/06/25 05/06/25 History
morphine 15 mg tablet,extended 15 mg PO Q12H 05/06/25 05/06/25 History
release (MS Contin)
ondansetron HCl (PF) 4 mg/2 mL 4 mg IM TID nausea 05/06/25 05/06/25 History
injection solution
oxybutynin chloride 5 mg tablet 5 mg PO TIDPRN PRN colic pain from 05/06/25 05/06/25 History
stent
oxycodone 5 mg/5 mL oral solution 5 mg PO Q4HPRN PRN severe pains 05/06/25 05/06/25 History
oxycodone 5 mg/5 mL oral solution 10 mg feeding tube Q4HPRN PRN 05/06/25 05/06/25 History
severe pain
phenol 1.4 % mucosal aerosol spray 1 spray mucous membrane Q2HPRN PRN 05/06/25 05/06/25 History
sore throat
polyethylene glycol 3350 17 gram 17 g feeding tube BID Constipation 05/06/25 05/06/25 History
oral powder packet (Miralax)
prochlorperazine edisylate 10 mg/2 10 mg IM Q6HPRN PRN nausea 05/06/25 05/06/25 History
mL (5 mg/mL) injection solution
scopolamine base 1 mg over 3 days 1 patch transdermal Q3D nausea 05/06/25 05/06/25 History
transdermal patch
sennosides 8.8 mg/5 mL oral syrup 17.6 mg feeding tube BID 05/06/25 05/06/25 History
(senna) Constipation
sodium citrate-citric acid 500 30 ml feeding tube BID 05/06/25 05/06/25 History
mg-334 mg/5 mL oral solution
thiamine HCl (vitamin B1) 100 mg 100 mg feeding tube DAILY 05/06/25 05/06/25 History
tablet Supplement
zinc oxide 40 % topical ointment 1 applic topical DAILYPRN PRN 05/06/25 05/06/25 History
damage skin
zinc sulfate 50 mg zinc (220 mg) 50 mg feeding tube DAILY 05/06/25 05/06/25 History
capsule
Review of Systems
-
All other systems: Negative unless noted
Physical Exam
Vital Signs
Vital Signs
Temp Pulse Resp BP Pulse Ox
97.3 F 90 16 134/86 100
05/07/25 07:38 05/07/25 07:38 05/07/25 07:38 05/07/25 07:38 05/07/25 07:38
Lab Results
WBC 13.0 10^3/uL (4.8-10.8) H 05/07/25 05:59
RBC 2.79 10^6/uL (4.70-6.10) L 05/07/25 05:59
Hgb 8.3 g/dL (13.0-18.0) L 05/07/25 05:59
Hct 26.6 % (39.0-52.0) L 05/07/25 05:59
Plt Count 323 10^3/uL (130-400) 05/07/25 05:59
Sodium 136 mmol/L (135-145) 05/07/25 05:59
Potassium 4.7 mmol/L (3.5-5.1) 05/07/25 05:59
Chloride 107 mmol/L (98-107) 05/07/25 05:59
Carbon Dioxide 14 mmol/L (22-30) L* 05/07/25 05:59
BUN 75 mg/dl (9-20) H 05/07/25 05:59
Creatinine 4.8 mg/dL (0.7-1.3) H* 05/07/25 05:59
eGFR 13.87 05/07/25 05:59
Glucose 74 mg/dl (70-99) 05/07/25 05:59
Calcium 8.5 mg/dl (8.4-10.2) 05/07/25 05:59
Albumin 2.3 g/dl (3.5-5.0) L 05/07/25 05:59
Physical Exam
General: Awake, Alert, Oriented, AOx3, No Distress and Nontoxic
HEENT: Anicteric, Conjunctivae Clear, Facial Symmetry and No JVD
Respiratory: Clear, Normal Excursion and Nonlabored Respirations
Cardiac: S1/S2 and Regular Rate/Rhythm
Breast: Deferred by me
Abdomen: Soft, Nontender, Nondistended and Other ( Well-healed scar upper abdominal)
Musculoskeletal: No Cyanosis and No Edema
Skin: No Rash
Neuro: Nonfocal/Grossly Intact
Psych: Mood/afflect pleasant, Insight/judgement good and Appropriate
Data Reviewed
-
Labs: Labs Reviewed by me, Discussed with Physician and Discussed with Patient
Assessment/Plan
-
IMP:
POLA
Metastatic Renal Cell Carcinoma with Spinal Column Metastasis and subsequent Spinal Infection s/p Left L1 & B/L L2 Segmental Artery Embolization (03/30/25); T12-L2 laminectomy, Left L1/2 corpectomy, T11-L4 fusion (03/31/25); Thoracolumbar Wound
Washout with PRS closure (04/30/2025).
recent PET/CT on 02/27/2025 there is also high FDG activity/pulmonary nodule left upper lobe.
MSSA Bacteremia secondary to Spinal Infection
Status post left nephrectomy for RCC.
Acute urine retention
Obstructive uropathy with right JJ stent placed on 05/05/2025
Elevated anion gap metabolic acidosis.
Chronic normocytic anemia
Severe Protein Calorie Malnutrition
Anxiety / Depression
Hyperalbuminemia
Plan:
Transfer from [place] after prolong hospitalization
POLA-Last creatinine was 2.9 in March-, do not have records from [place] to review
Check urine studies and imaging if needed
He reportedly had obstructive uropathy which could be also the etiology
He is also on antibiotics for several days, Check urine eosinophils
Will try with the bicarbonate IV fluids
Nonoliguric with a Eldridge catheter
No emergent need of dialysis however high risk if worsening renal function
Follow hemoglobin, PSA pending. Adequate iron stores
BP stable
Reviewed with the patient in detail
Reviewed with the primary team
[2025-05-07] MEDS: SODIUM BICARBONATE 1150 MEQ IV ×2 (12:14→23:10)
[2025-05-07 12:33] LABS: Glucose - Point of Care 92 mg/dl (70-99)
--- NOTE | 2025-05-07 14:41 | CM ---
CM attempted to complete IA, however pt declined, stating he was not up to discussion at the time of my visit.
CM to follow up again in AM.
[2025-05-07 14:45] VITALS: BMI 22.3
--- NOTE | 2025-05-07 15:05 | PTOTSP ---
Speech Therapy Evaluation:
Bedside swallow evaluation limited due to ongoing nausea/gagging/dry heaving, which pt initially attributed to presence of DHT and metallic taste in his mouth. DHT since removed, however metallic taste has persisted, resulting in ongoing gagging
with PO intake. No s/sx of aspiration with x1 sip of water, however pt declined further PO trials due to aforementioned presentation. Low suspicion that pt has dysphagia and suspect main barrier to PO intake is metallic taste in pt's mouth, causing
aversion.
Recommend:
1. Regular solids and thin liquids
2. Meds as tolerated
3. General aspiration precautions
4. N[employer] to follow to monitor tolerance of current diet level
[2025-05-07 15:06] LABS: Urine Character Cloudy (Clear)
[2025-05-07 15:17] LABS: Urine Squamous Cell 0-2 /LPF (Few)
[2025-05-07 15:19] LABS: Urine Red Blood Cell >100 /HPF (0-2); Urine White Cell 16-20 /HPF (0-5)
[2025-05-07 15:31] VITALS: BP 114/79
[2025-05-07 16:50] LABS: Glucose - Point of Care 118 mg/dl (70-99)
--- NOTE | 2025-05-07 16:55 | PN.CDI ---
CDI
- -
CDI:
Physician Documentation Request
Admit Date: 05/06/25 17:42
Dear Doctor Anand,
Please review the following and provide your response in the progress notes.
Clinical Indicators:
05/07/25 11:28 - Wound Note
#...stage 1 to sacral coccyx and some friction appearing skin to buttocks.
Physician documentation of the type and location of wounds is required for compliant documentation. Based on the above clinical findings and your assessment, please provide the following in your progress note:
Yes, Stage 1 pressure injury sacrum/coccyx, POA
No, Stage 1 pressure injury sacrum/coccyx
Other (please specify)
1. Location of the ulcer/wound, including laterality.
2. Type (etiology) of ulcer/wound:
- Diabetic ulcer
- Arterial (ischemic) ulcer
- Traumatic wound
- Pressure (decubitus) ulcer
- Non-healing surgical wound
3. For a pressure ulcer, please also include the stage* of the ulcer:
- Stage 1 - Skin intact, non-blanchable redness
- Stage 2 - Partial thickness loss of dermis, includes intact or open blister
- Stage 3 - Full thickness tissue not including bone, tendon or muscle
- Stage 4 - Full thickness tissue loss, including exposed bone, tendon or muscle
Use of terms such as suspected, likely, concern for, or probable (associated with a specific diagnosis that is being evaluated, monitored, or treated as if it exists) are acceptable and can be coded in the inpatient setting, when documented at the
time of discharge.
Thank you,
Kait Gonzalez RN BSN CCDS
CDI Specialist
Please contact via tiger text
Please use your independent medical judgment in providing your response.
*Source: National Pressure Ulcer Advisory Panel (NPUAP)
[2025-05-07] MEDS: SENOKOT PO (19:49)
[2025-05-07] MEDS: FLOMAX PO (21:13)
[2025-05-07 21:20] LABS: Glucose - Point of Care 109 mg/dl (70-99)
[2025-05-07 23:00] VITALS: BP 133/85
[2025-05-08 06:25] LABS: Hematocrit 24.6 % (39.0-52.0); Hemoglobin 8.0 g/dL (13.0-18.0); Mean Corp Hgb Conc. 32.5 g/dL (33.0-37.0); Mean Corpuscular Volume 94.3 fL (80.0-94.0); Nucleated Red Blood Cells % 0 % (-); Platelet Count 313 10^3/uL (130-400); Red Cell Dist. Width 17.7 % (11.5-14.5)
[2025-05-08 06:51] LABS: Blood Urea Nitrogen 73 mg/dl (9-20); Calcium 8.0 mg/dl (8.4-10.2); Carbon Dioxide 23 mmol/L (22-30); Chloride 104 mmol/L (98-107); Estimated Creatinine Clearance 18 ml/min; Glucose 92 mg/dl (70-99); Potassium 4.1 mmol/L (3.5-5.1); Sodium 141 mmol/L (135-145); eGFR 14.23
[2025-05-08 07:30] VITALS: BP 124/87
--- NOTE | 2025-05-08 08:02 | W.PN.ONC2 ---
Today's Communication / Plan
-
.
Impression
Impression
Metastatic renal cell carcinoma s/p L nephrectomy
Multifactorial anemia CKD and AOCD
MSSA bacteremia secondary to spinal infection
POLA, solidary R kidney s/p JJ stent -placed on 05/05/2025
Pain
malnutrition -DHT for TF
multifactorial Anemia -no role for parenteral iron with ferritin 628, no b12 or folate deficency. Likely renal disease, malignancy, infection, abx, recent surgery contributing to anemia
Plan
Plan
abx per primary service
pain management per primary service
optimize PT, OT, nutrition
Anticipate outpatient follow-up with [facility] to initiate systemic therapy upon infection and hospital recovery
Subjective/Objective
Subjective
dry mouth, poor oral intake
denies oral intake
afebrile, no hypoxia or hypotension
encouraged OOB
Vital Signs:
Vital Signs
Temp Pulse Resp BP Pulse Ox
98.5 F 92 16 133/85 100
05/07/25 23:00 05/07/25 23:00 05/07/25 23:00 05/07/25 23:00 05/07/25 23:00
Lab Results:
Laboratory Data
WBC 12.3 10^3/uL (4.8-10.8) H 05/08/25 05:39
Hgb 8.0 g/dL (13.0-18.0) L 05/08/25 05:39
Plt Count 313 10^3/uL (130-400) 05/08/25 05:39
eGFR 14.23 05/08/25 05:39
Physical Exam
General: NAD
HEENT: Anicteric
Respiratory: unlabored Respirations
Cardiac: S1/S2 and Regular Rhythm
GI: Soft and Non Tender
Genito-urinary: Eldridge
Skin: Wound vac in place to lower back; JEEVAN drains x 2
Neuro: Awake, Alert, Oriented
[2025-05-08 08:06] LABS: Glucose - Point of Care 101 mg/dl (70-99)
[2025-05-08] MEDS: NOVOLOG FLEXPEN-LOW RESISTANCE SC ×4 (08:39→17:29)
[2025-05-08] MEDS: ANCEF 10 IV ×2 (08:40→20:06)
[2025-05-08] MEDS: HEPARIN 5000 UNITS SC ×2 (08:41→20:08)
[2025-05-08] MEDS: SENOKOT PO ×2 (08:41→20:59)
[2025-05-08] MEDS: PROSCAR PO (08:41)
[2025-05-08] MEDS: VITAMIN C PO (08:42)
[2025-05-08] MEDS: VITAMIN B1 PO (08:42)
[2025-05-08] MEDS: THERAGRAN PO (08:42)
[2025-05-08] MEDS: SODIUM BICARBONATE 1150 MEQ IV (11:17)
[2025-05-08 12:44] LABS: Glucose - Point of Care 116 mg/dl (70-99)
[2025-05-08] MEDS: OASIS PO ×3 (12:52→21:32)
--- NOTE | 2025-05-08 13:06 | CON.MD ---
Consultation - Medical
-
Chief Complaint:�Debility
�
History of Present Illness: 49-year-old male with PMH (metastatic renal cell carcinoma) presented to [facility] on 05/06/25 as a transfer from [facility] following a prolonged hospitalization. He originally presented to [facility]
March 27, 2025 with increasing lower extremity weakness and was found to have worsening malignant soft tissue in the spinal canal with severe spinal stenosis. He was urgently [facility] for [facility] intervention. He initially had
an artery embolization and underwent spinal surgery. Hospital course was complicated with wound infection with wound dehiscence and MSSA bacteremia status post washout and wound VAC with prolonged course of IV Ancef. He has unilateral right kidney
and found to have hydronephrosis status post JJ stent. He also required a small bore nasogastric feeding tube placement for supplemental nutrition due to poor intake and severe protein calorie malnutrition. Other medical concerns include chronic
normocytic anemia, anxiety, depression.
Patient had Dobbhoff tube removed and was seen by speech. Speech recommending regular solid and thin liquid diet. Patient has metallic taste in his mouth and has ongoing nausea/gagging/dry heaving. Speech to further evaluate ability for patient
to maintain adequate oral intake. Patient refused PT and OT yesterday as he was tired from his transfer. Overall he is feeling tired.
He has tried to eat but has a metallic taste. Even if he tries to eat or drink anything he ends up gagging and throwing her right back up. He cannot force himself to get and keep anything down. This is not unchanged since when he came in for
evaluation in March. He is not clear what his prognosis is. He is not sure what the plan for being able to maintain his hydration and nutrition status is. He is not sure what the next step in the plan is but he is tired of being in the
hospital.
�
Past Medical History:�Chronic pain with opioid dependence, metastatic renal cell carcinoma, MSSA bacteremia, anxiety, depression.
Procedure History:�Left nephrectomy, left L1 and bilateral L2 segmental artery embolization 03/30/2025, T12-L2 laminectomy and L L1/2 corpectomy, T11-L4 fusion 03/31/2025, thoracolumbar wound washout with PRS closure 04/30/2025, cystoscopy with JJ
stent placement 05/05/2025
Family History:�None pertinent
�
Social History:�
Functional Level Premorbidly:�Independent with all activities�
Functional Level Currently:�Mod assist bed mobility and transfers. Taking 4 sidesteps with rolling walker with mod assist of 2.
�
Tobacco:�Denies�
Alcohol:�Denies�
Drug use:�Denies�
�
Lives with:� and 12-year-old son
24-hour assistance available:�No
Number of floors:�2
# steps to enter:�15
# steps to second floor: 7
Potential First floor set up:�No
Driving:�Yes
Occupation:�Working
�
�
Allergies:�
Allergy/AdvReac Type Severity Reaction Status Date / Time
No Known Allergies Allergy Verified 03/27/25 06:56
�
Review of Systems:�
Constitutional: (x) Normal _
Eye: (x) Normal _
Ear/Nose/Throat: (x) Normal _
Respiratory: (x) Normal _
Cardiovascular: (x) Normal _
Gastrointestinal: (x) Normal _
Genitourinary: (x) Normal _
Musculoskeletal: (x) Normal _
Integumentary: (x) Normal _
Neurologic: (x) Normal _
Psychiatric: (x) Normal _
Endocrine: (x) Normal _
Hematologic/Lymphatic: (x) Normal _
Allergic/Immunologic: (x) Normal _
�
Medications:�
Active Current Visit Medication List
Category Date Time Status
0.9% Sodium Chloride 1000 ml [Nss] 1,000 ml Med 05/08/25 14:15 Active
IV 100 mls/hr
Acetaminophen [Tylenol] Med 05/07/25 16:58 Active
650 mg PO Q4HPRN PRN
Ascorbic Acid [Vitamin C] Med 05/08/25 08:00 Active
250 mg PO DAILY
Bupropion(24Hr)Extended Releas [WELLBUTRIN XL (24 hour Med 05/08/25 14:00 Active
extended release)]
150 mg PO DAILY
CeFAZolin 2 GRAM [Ancef] Med 05/06/25 21:00 Active
2 grams in 10 ml IV Q12
Dextrose 50%-Water [Dextrose 50% Syringe] Med 05/07/25 00:54 Active
12.5 grams IV [id number] PRN
Finasteride [Proscar] Med 05/08/25 08:00 Active
5 mg PO DAILY
Flush (0.9% Sodium Chloride) [Flush (Nss)] Med 05/06/25 21:00 Active
See Dose Instructions IV PER PROTOCOL
Glucagon [GlucaGen] Med 05/07/25 00:54 Active
1 mg IM PRN PRN
Heparin Med 05/06/25 20:00 Active
5,000 units SC Q12
Insulin Aspart Corrective Low [Novolog Flexpen-Low Med 05/07/25 07:30 Active
Resistance]
See Protocol SC AC
Multivitamin [Theragran] Med 05/08/25 08:00 Active
1 tablet PO DAILY
Ondansetron Injectable [Zofran] Med 05/07/25 11:18 Active
4 mg IV Q6HPRN PRN
Oxycodone [Roxicodone] Med 05/07/25 17:06 Active
5 mg PO Q4HPRN PRN
Pantoprazole [Protonix] Med 05/08/25 08:00 Active
20 mg PO DAILY
Phenol 1.4% [place] [Chloraseptic/Sore Throat [place]] Med 05/06/25 19:10 Active
1 spray PO Q2HPRN PRN
Polyethylene Glycol Powder [Miralax] Med 05/07/25 20:00 Active
17 grams PO BID
Saliva Substitute [Oxly] Med 05/08/25 13:00 Active
See Dose Instructions PO QID
Sennosides [Senokot] Med 05/07/25 20:00 Active
8.6 mg PO BID
Tamsulosin [Flomax] Med 05/07/25 22:00 Active
0.4 mg PO HS
Thiamine HCl [Vitamin B1] Med 05/08/25 08:00 Active
100 mg PO DAILY
Zinc 50mg (Zinc Sulfate 220mg) [Zinc] Med 05/08/25 08:00 Active
50 mg PO DAILY
�
Vitals:�
Temp Pulse Resp BP Pulse Ox
98.2 F 82 16 134/82 96
05/08/25 16:57 05/08/25 16:57 05/08/25 16:57 05/08/25 16:57 05/08/25 16:57
Height 5 ft 9 in
Actual Weight 68.447 kg
Body Mass Index (BMI) 22.3
Physical Exam:�
General Appearance/Observation: Well-developed, thin male in no apparent distress.�
Pain/Comfort Assessment: Denies�
Mood/Affect: Flat
�
Integumentary/Operative Site:�2 JEEVAN drains with serosanguineous drainage on the left. Back incision not evaluated. Has IV fluid running.
�
Eyes: Conjunctiva/Lids: normal��� Pupils: pupils equal round and reactive to light
Ears/Nose/Throat: oral mucosa slightly dry, throat clear.������������ Lips/Teeth/Gums: normal
Cardiovascular: Heart: regular, no murmur�
Pulses: dorsalis pedis 2+ bilaterally�
Respiratory: Respiratory Effort/Chest Expansion: normal������ Auscultation: Clear to auscultation bilaterally
Gastrointestinal: abdomen not tender, no distension, normal abdominal bowel sounds
Genitourinary: Eldridge with mild hematuria and occasional small clots
Rectal Exam: Deferred�
Extremities:�Edema: None�Cyanosis: None�Trophic�changes: None
Neurology Exam:
Orientation: Alert, Oriented to self, Time, Place�
Memory: Intact for recent medical concerns
Comprehension: Intact
Two step command: Intact
Cranial Nerves:
�� CNII:�Pupillary light reflex: Intact���Visual Field: Intact
�� CN III, IV, : Extraocular muscles: Intact�
�� CN V:�Facial Sensation�at�Forehead: Intact,�Maxilla: Intact,�Mandible: Intact
�� CN VII:�Facial movement: Symmetric
�� CN VIII:�Hearing: Normal
�� CN IX/X:�Speech & swallow: Normal,�Position of Uvula: Midline
�� CN XI:�Shoulder shrug: Symmetric
�� CN XII:�Tongue protrusion: Midline
Sensory:
�� Light touch: Intact in bilateral upper and lower extremities
�
Reflexes:
�� Biceps: 2+ bilaterally
�� Brachioradialis: 2+ bilaterally
�� Triceps: 2+ bilaterally
�� Patellar: 2+ bilaterally
�� Achilles: 0 bilaterally
�� Babinski: Down going bilaterally
�� Clonus: None
�� Verito: Negative bilaterally�
Cerebellar: Dysmetria/Ataxia: None�
Musculoskeletal: Motor: (Manual muscle scale 0-5)�
Muscle SA EF WE EE FF FA HF KE DF EHL PF
Right� 4 4 4 4 4 2 2 4 0 0 3
Left 4 4 4 4 4 2 2 4 0 0 3
Tone: Normal in all extremities�
Range of Motion: Passively within normal limits in all extremities�
�
Lab Results
Laboratory Data
05/08/25 05:39
05/08/25 05:39
Total Bilirubin 0.3 mg/dl (0.2-1.3) 05/07/25 05:59
AST 15 U/L (17-59) L 05/07/25 05:59
ALT < 10 U/L (0-50) 05/07/25 05:59
Alkaline Phosphatase 114 U/L (38-126) 05/07/25 05:59
Total Protein 5.8 g/dl (6.3-8.2) L 05/07/25 05:59
Albumin 2.3 g/dl (3.5-5.0) L 05/07/25 05:59
�
Diagnostic Results:�as per HPI�
�
Assessment
49 y/o M PMH (metastatic renal cell carcinoma, Chronic pain with opioid dependence, MSSA bacteremia, anxiety, depression) with 03/27/2025 increasing lower extremity weakness and was found to have worsening malignant soft tissue in the spinal canal
s/p left L1 and bilateral L2 segmental artery embolization 03/30/2025, T12-L2 laminectomy and L L1/2 corpectomy, T11-L4 fusion 03/31/2025 complicated by wound dehiscence and MSSA bacteremia s/p thoracolumbar wound washout with PRS closure 04/30/2025,
cystoscopy with JJ stent placement 05/05/2025, severe protein calorie malnutrition requiring Dobbhoff tube that is now removed with ADL and ambulatory dysfunction.
Plan�
PM&R�PT/OT to increase independence with ADLs, improve balance, coordination, endurance, strength, mobility, community reintegration, decreased burden of care on others and family education.�
�
Metastatic renal cell carcinoma with spinal metastasis status post laminectomy and fusion with wound infection and washout: Monitor incision. Continue cefazolin through May 11 per history and physical.
-There is no mention of his prognosis which would be helpful in determining his goals of care and care plan.
MSSA bacteremia secondary to spinal infection: Continue cefazolin as noted above
Protein calorie malnutrition: Had Dobbhoff tube which is removed. Per speech does not appear to be a dysphagia component. Patient has metallic taste which causes gagging and limits his oral intake.
-Will need a consistent form of hydration and nutrition support in order to go to rehab. Continue to monitor. Suggest calorie counts to ensure adequate nutrition.
-Monitor BUN/creatinine and clinical signs for dehydration.
-Suggest KUB or obstructive series to evaluate stool burden. Patient knows he has not moved his bowels in a week.
POLA and metabolic acidosis: Has 1 kidney. Management per nephrology. Monitor BUN and creatinine closely. Creatinine 4.7 from 4.8.
-Had right kidney hydronephrosis status post JJ stent 05/05/2025
Hyperkalemia: Did require Lokelma, held for now with monitoring of potassium
Chronic anemia: multifactorial.� Continue to monitor.�
�
Anxiety/depression: Monitor mood, adjust bupropion 100 mg 3 times daily as needed.�
Skin: monitor for pressure sores/rashes/lesions.�
Pain: acetaminophen as needed.�
Bowel: MiraLAX twice daily and Senna 2 tabs at lunch, PRN bisacodyl.�
Urinary retention: Has Eldridge catheter. Proscar, tamsulosin 0.4 mg at bedtime. To consider void trial to decrease risk of infection. He did not have any difficulties with voiding previously.
Hematuria: Monitor, patient notes that has been happening since stent placed.
GI Prophylaxis: Pantoprazole
DVT Prophylaxis: Mechanical and heparin
Pulmonary: Incentive spirometry�
Safety: Continue to reinforce assistance with all transfers.�
Code Status:� Full code
Dispo�(date/plan/equipment needs): Home with family care.� Social history reviewed.�
Functional and Medical Goals:�Modified Independent with ADL�s, ambulation, transfers�
Discharge Destination:�Likely acute inpatient rehabilitation. However before getting to rehabilitation a consistent way of getting hydration and nutrition is necessary. Currently patient is not able to tolerate anything orally without gagging or
vomiting. Getting Zofran. Once he is able to have better hydration and nutrition can further evaluate how he is feeling. Reviewed his current medical concerns and need to determine general goals of care moving forward.
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
�
Summary of recommendations:
-�Discharge Destination:�Likely acute inpatient rehabilitation once he has a reliable source of hydration and nutrition.
Metastatic renal cell carcinoma with spinal metastasis status post laminectomy and fusion with wound infection and washout:
-There is no mention of his prognosis which would be helpful in determining his goals of care and care plan.
Protein calorie malnutrition: Does not appear to be dysphagia . Patient has metallic taste which causes gagging and limits his oral intake.
-Will need a consistent form of hydration and nutrition support in order to go to rehab. Continue to monitor. Suggest calorie counts to ensure adequate nutrition.
-Suggest KUB or obstructive series to evaluate stool burden. Patient knows he has not moved his bowels in a week.
Bowel: MiraLAX twice daily and Senna 2 tabs at lunch, PRN bisacodyl.�
Urinary retention: To consider void trial to decrease risk of infection. He did not have any difficulties with voiding previously.
DVT Prophylaxis: Mechanical and heparin�
Thank you for allowing me to care for your patient. Please contact me with any questions or concerns.
Consultation
-
Date/Time Consultation Requested: 05/07/25
Date/Time Consultation Performed: 05/08/25
Requesting Provider: Dr. Chas Michel
Performing Provider: Dr. Wilfredo Mohr
Reason for Consultation: Rehab placement
--- NOTE | 2025-05-08 13:46 | W.PN.HOSP.TC ---
Addendum entered and electronically signed by Chas Michel MD 05/08/25 14:33:
Attempted to call patient's with no response.
Original Note:
Today's Communication/Plan
-
Wound care with wound VAC
Monitor JEEVAN drain output
IV antibiotic
IV fluids with bicarbonate
Follow renal function
Renal sonogram
Diet has been advanced. Monitor oral intake
PT assessment with discharge planning
Assessment / Plan
Assessment / Plan
Impression:
Metastatic renal cell carcinoma.
-Status post left nephrectomy
MSSA bacteremia secondary to spinal wound infection.
Acute kidney injury.
Acute on chronic metabolic acidosis.
Right hydronephrosis.
Acute urinary retention requiring Eldridge catheter.
Malignant pain requiring opiates but
Severe protein calorie malnutrition.
Anxiety/depression
Plan
Metastatic Renal Cell Carcinoma with Spinal Column Metastasis and subsequent Spinal Infection s/p Left L1 & B/L L2 Segmental Artery Embolization (03/30/25); T12-L2 laminectomy, Left L1/2 corpectomy, T11-L4 fusion (03/31/25); Thoracolumbar Wound
Washout with PRS closure (04/30/2025).
In review of her recent PET/CT on 02/27/2025 there is also high FDG activity/pulmonary nodule left upper lobe.
Consult oncology for further staging and treatment options
MSSA Bacteremia secondary to Spinal Infection
-Continue cefazolin 2gm q12h through Jun 10
-Will likely need chronic cefadroxil afterwards
-Follow-up schedule with ID at [facility]
Continue wound care.
� Bilateral JEEVAN drain, monitor output daily. Consider removing drains if output less than 30 mL in 2 consecutive days
� Continue wound VAC plan through May 11 as per [facility] plastic surgery service
Acute kidney injury.
Status post left nephrectomy for RCC.
Acute urine retention
Obstructive uropathy with right JJ stent placed on 05/05/2025
Elevated anion gap metabolic acidosis.
? If CKD
UA is skewed given Eldridge catheter trauma
Urine sodium pending
Urine eosinophils pending
Check renal sonogram. May need additional imaging with CT scan
Suspect low volume status since elevated BUN.
Initiated on IV fluids with bicarbonate
Nephrology evaluation
Maintain Eldridge catheter
Continue Flomax
Chronic normocytic anemia
Iron studies indicative of mild iron deficiency and anemia of chronic disease
Check EPO level.
Follow hemoglobin
Pain Management
-Patient previously on Morphine ER which was switched to Morphine IR when DHT was placed
-Patient had been refusing scheduled doses of narcotics
-Continue oxycodone PRN
Severe Protein Calorie Malnutrition - DHT placed at [facility]
Patient reports no swallowing issues, although with persistent nausea and vomiting and metallic taste predicting sufficient oral intake.
-Allow regular diet with tube feeding for supplementation
-Consult Dietary
Anxiety / Depression
-Continue bupropion
Deconditioning
-Consult PT/OT
DVT proph: SC Heparin
Code Status: Full Code
Anticipated Discharge: > 48 hours
Subjective/Interval History
-
Date of Service: May 08, 2025
Objective Data
-
Labs:
Laboratory Results
05/08/25
05:39
WBC 12.3 H
Hgb 8.0 L
Hct 24.6 L
Plt Count 313
Sodium 141
Potassium 4.1
Chloride 104
Carbon Dioxide 23
BUN 73 H
Creatinine 4.7 H*
Glucose 92
Calcium 8.0 L
Vital Signs:
Vital Signs
Temp Pulse Resp BP Pulse Ox
98.2 F 91 20 124/87 98
05/08/25 07:30 05/08/25 07:30 05/08/25 07:30 05/08/25 07:30 05/08/25 07:30
I&O
05/07/25 05/08/25 05/09/25
06:59 06:59 06:59
Intake Total 645 / 645
Output Total 1635 / 1635 2470 / 2470
Balance -1635 / -1635 -1825 / -1825
Physical Exam
-
General: Well Developed and No Apparent Distress
HEENT: Normocephalic, Atraumatic and Moist Mucous Membranes
Respiratory: Clear to Auscultation
Cardiac: Regular Rhythm and S1/S2; Negative Murmur, Rub or Gallop
GI: Soft, Nontender, Nondistended and Normal Bowel Sounds; Negative Organomegaly
Rectal: Deferred by Provider
Genito-urinary: Eldridge
Musculoskeletal: No Clubbing, No Cyanosis, No Edema and Other (Bilateral paraspinal/T-spine level JEEVAN drain. Right-sided T-spine level wound with wound VAC in place)
Skin: Negative Rash
Neuro: Nonfocal/Grossly Intact
[2025-05-08] MEDS: ZOFRAN 4 MG IV (13:57)
[2025-05-08] MEDS: OASIS 2 SPRAY PO (13:57)
--- NOTE | 2025-05-08 14:12 | W.PN.NEPH.PH ---
Today's Communication / Plan
-
follow BMP
Assessment/Plan
-
IMP:
POLA
Metastatic Renal Cell Carcinoma with Spinal Column Metastasis and subsequent Spinal Infection s/p Left L1 & B/L L2 Segmental Artery Embolization (03/30/25); T12-L2 laminectomy, Left L1/2 corpectomy, T11-L4 fusion (03/31/25); Thoracolumbar Wound
Washout with PRS closure (04/30/2025).
recent PET/CT on 02/27/2025 there is also high FDG activity/pulmonary nodule left upper lobe.
MSSA Bacteremia secondary to Spinal Infection
Status post left nephrectomy for RCC.
Acute urine retention
Obstructive uropathy with right JJ stent placed on 05/05/2025
Elevated anion gap metabolic acidosis.
Chronic normocytic anemia
Severe Protein Calorie Malnutrition
Anxiety / Depression
Hyperalbuminemia
Plan:
change to NSS
follow BMP
await US reading
-
-
Date of Service: May 08, 2025
CC / HPI / ROS
-
Chief Complaint:
POLA
History of Present Illness:
POLA/Cr stable 4.7
acidosis better on IVF
BP stable
still with back pain
Review of Systems:
no CP/SOB
nonoliguric
Labs
-
Labs:
WBC 12.3 10^3/uL (4.8-10.8) H 05/08/25 05:39
RBC 2.61 10^6/uL (4.70-6.10) L 05/08/25 05:39
Hgb 8.0 g/dL (13.0-18.0) L 05/08/25 05:39
Hct 24.6 % (39.0-52.0) L 05/08/25 05:39
Plt Count 313 10^3/uL (130-400) 05/08/25 05:39
Sodium 141 mmol/L (135-145) 05/08/25 05:39
Potassium 4.1 mmol/L (3.5-5.1) 05/08/25 05:39
Chloride 104 mmol/L (98-107) 05/08/25 05:39
Carbon Dioxide 23 mmol/L (22-30) 05/08/25 05:39
BUN 73 mg/dl (9-20) H 05/08/25 05:39
Creatinine 4.7 mg/dL (0.7-1.3) H* 05/08/25 05:39
eGFR 14.23 05/08/25 05:39
Glucose 92 mg/dl (70-99) 05/08/25 05:39
Calcium 8.0 mg/dl (8.4-10.2) L 05/08/25 05:39
Albumin 2.3 g/dl (3.5-5.0) L 05/07/25 05:59
Physical Exam
-
Vital Signs:
Vital Signs
Temp Pulse Resp BP Pulse Ox
98.2 F 91 20 124/87 98
05/08/25 07:30 05/08/25 07:30 05/08/25 07:30 05/08/25 07:30 05/08/25 07:30
Cardiovascular:: Regular rate and rhythm
Respiratory:: Bilateral: Coarse
Lung Excursion:: Normal
Abdomen:: Nontender and Soft
Bowel Sounds:: Normal
Extremity Edema:: +1: Bilateral:
[2025-05-08] MEDS: NSS 1000 IV (14:26)
[2025-05-08] MEDS: WELLBUTRIN XL (24 hour extended release) PO (14:26)
[2025-05-08 16:57] VITALS: BP 134/82
[2025-05-08 17:20] LABS: Glucose - Point of Care 101 mg/dl (70-99)
[2025-05-08] MEDS: FLOMAX PO (21:32)
[2025-05-08 21:42] LABS: Glucose - Point of Care 85 mg/dl (70-99)
[2025-05-08 23:00] VITALS: BP 135/84
[2025-05-09] MEDS: NSS 1000 IV ×3 (00:49→17:50)
[2025-05-09 07:00] VITALS: BP 146/84
[2025-05-09 07:59] LABS: Glucose - Point of Care 81 mg/dl (70-99)
[2025-05-09 08:11] LABS: Blood Urea Nitrogen 66 mg/dl (9-20); Calcium 7.8 mg/dl (8.4-10.2); Carbon Dioxide 21 mmol/L (22-30); Chloride 107 mmol/L (98-107); Estimated Creatinine Clearance 17 ml/min; Glucose 77 mg/dl (70-99); Potassium 4.1 mmol/L (3.5-5.1); Sodium 144 mmol/L (135-145); eGFR 13.53
[2025-05-09] MEDS: NOVOLOG FLEXPEN-LOW RESISTANCE SC ×3 (08:51→17:48)
[2025-05-09] MEDS: ANCEF 10 IV ×2 (09:08→21:09)
[2025-05-09] MEDS: HEPARIN 5000 UNITS SC ×2 (09:09→21:09)
[2025-05-09] MEDS: SENOKOT PO ×2 (09:10→21:06)
[2025-05-09] MEDS: OASIS 2 SPRAY PO (09:10)
[2025-05-09] MEDS: PROSCAR PO (09:10)
[2025-05-09] MEDS: THERAGRAN PO (09:10)
[2025-05-09] MEDS: VITAMIN B1 PO (09:10)
[2025-05-09] MEDS: WELLBUTRIN XL (24 hour extended release) PO (09:11)
[2025-05-09] MEDS: VITAMIN C PO (09:11)
[2025-05-09] MEDS: ZOFRAN 4 MG IV (09:30)
--- NOTE | 2025-05-09 10:20 | W.PN.HOSP.TC ---
Today's Communication/Plan
-
Continue current care
Assessment / Plan
Assessment / Plan
Gen-AAOx3, NAD, appears chronically ill
HEENT-NC, AT, anicteric, clear oral mm
Neck-supple
CV-reg, no M, +S1/S2
Lungs-clear B/L
Abd-soft, NT, ND
Ext-no edema
Musculoskeletal-no cyanosis, clubbing
Skin-warm and dry
Neuro-grossly non-focal
Psych-calm, cooperative
Impression:
Metastatic renal cell carcinoma.
-Status post left nephrectomy December 2024.
MSSA bacteremia secondary to spinal wound infection.
Acute kidney injury.
Acute on chronic metabolic acidosis.
Right hydronephrosis.
Acute urinary retention requiring Eldridge catheter.
Malignant pain requiring opiates but
Severe protein calorie malnutrition.
Anxiety/depression
Plan
Metastatic Renal Cell Carcinoma with Spinal Column Metastasis and subsequent Spinal Infection s/p Left L1 & B/L L2 Segmental Artery Embolization (03/30/25); T12-L2 laminectomy, Left L1/2 corpectomy, T11-L4 fusion (03/31/25); Thoracolumbar Wound
Washout with PRS closure (04/30/2025).
In review of her recent PET/CT on 02/27/2025 there is also high FDG activity/pulmonary nodule left upper lobe.
Consult oncology for further staging and treatment options
MSSA Bacteremia secondary to Spinal Infection
-Continue cefazolin 2gm q12h through Jun 10
-Will likely need chronic cefadroxil afterwards
-Follow-up schedule with ID at [facility]
Continue wound care.
� Bilateral JEEVAN drain, monitor output daily. Consider removing drains if output less than 30 mL in 2 consecutive days
� Continue wound VAC plan through May 11 as per [facility] plastic surgery service
Acute kidney injury.
Status post left nephrectomy for RCC.
Acute urine retention
Obstructive uropathy with right JJ stent placed on 05/05/2025
Elevated anion gap metabolic acidosis.
? If CKD
UA is skewed given Eldridge catheter trauma
Urine sodium pending
Urine eosinophils pending
Renal ultrasound noted, estimated bladder volume 70 cc. No ureteral jets demonstrated. Status post left nephrectomy. Right ureteral stent visualized. Mild right pelvic calyceal dilation. Echogenicity of the right kidney appears diffusely
increased relative to the liver, nonspecific finding suggesting medical renal disease.
Suspect low volume status since elevated BUN.
Initiated on IV fluids with bicarbonate
Nephrology evaluation
Maintain Eldridge catheter
Continue Flomax
Chronic normocytic anemia
Iron studies indicative of mild iron deficiency and anemia of chronic disease
Erythropoietin level of 4, low end of normal range.
Follow hemoglobin
Pain Management
-Patient previously on Morphine ER which was switched to Morphine IR when DHT was placed
-Patient had been refusing scheduled doses of narcotics
-Continue oxycodone PRN
Severe Protein Calorie Malnutrition - DHT placed at [facility], has since been removed.
Patient reports no swallowing issues, although with persistent nausea and vomiting and metallic taste predicting sufficient oral intake.
-Allow regular diet
-Consult Dietary. Patient refusing protein shakes.
Anxiety / Depression
-Continue bupropion
Deconditioning
-Consult PT/OT
DVT proph: SC Heparin
Code Status: Full Code
Dispo -ideally patient is needs to go to SNF on discharge but he prefers to go home as he wants to take care of his family. He seems to have little insight into the severity of his illness and the trajectory of his recovery.
Not medically stable for discharge given ongoing renal failure, anemia, malnutrition.
Anticipated Discharge: > 48 hours
Subjective/Interval History
-
Date of Service: May 09, 2025
Patient seen and examined. No new complaints.
Objective Data
-
Labs:
Laboratory Results
05/09/25
06:59
Sodium 144
Potassium 4.1
Chloride 107
Carbon Dioxide 21 L
BUN 66 H
Creatinine 4.9 H*
Glucose 77
Calcium 7.8 L
Vital Signs:
Vital Signs
Temp Pulse Resp BP Pulse Ox
98.4 F 80 17 146/84 100
05/09/25 07:00 05/09/25 07:00 05/09/25 07:00 05/09/25 07:00 05/09/25 07:00
I&O
05/08/25 05/09/25 05/10/25
06:59 06:59 05:59
Intake Total 645 / 645 980 / 980
Output Total 2470 / 2470 1300 / 1300 1000 / 1000
Balance -1825 / -1825 -320 / -320 -1000 / -1000
Review of Systems
-
History Source: Patient
All other systems: Reviewed and negative
[2025-05-09 12:05] LABS: Glucose - Point of Care 89 mg/dl (70-99)
[2025-05-09] MEDS: OASIS PO ×3 (13:04→21:10)
--- NOTE | 2025-05-09 13:12 | PTCARENOTE ---
Pt refusing medications. he denies pain PT is alert able to make his needs known he is very agitated upset and angry, wants to go home and refusing most medical care and medicines. I spent > 30 minutes talking with him to identify what was causing
his issues. His son who is 12 is at home alone at times because he has been in the hospital for > 50 days is knocking down [address] and destroying his house. I asked what is the reason for this and the patient stated it is because he wants and needs
his father home. The patient has a crisis at home and feels powerless being here and does not feel like he is getting better and his son needs him desperately. I provided intense emotional support and he did not receive it well. I asked patient
to take medications to get better and he refused stating the second he swallows anything he vomits. which occured 3 times today. every sip of water makes him vomit clear liquid. He has a severe awful taste of metalic that makes him so nausous and
shakes at time. He also stated his tongue is dry, i inspected his throat and it is red , i did not see any puss but did have some blood streaks in back, he refuses to take his spray for pain and also spray for hydration. speech re consulted so he
can eat better. Currently sister is at bedside. she was not happy that he has metalic taste in his mouth and she was upset and insulted [facility] for not having access to epic from [facility] to know about what all the consultants say. I
explained physicians have access and reassured her that physicians have access to his entire chart and there is no break in continuity of care despite being on two different computer systems. PT has +1 dependent edema noted poor nutrition with
cachexia noted severe sunken cheek bones, nutrition consult put in to see if he needs any needs. VAC running without issue, dressing intact, JEEVAN drains without output. lovett draining pink urine, care given per MD order. I asked patient to get oob
to chair this am, he did not want to. I then proceeded to give extensive education on importance of getting oob to shorten rehab needs and time to get home. He still refused. The patient is angry. I did put in consult again for speech Pt stated he
has to go home. PT is a fall risk, makes no attempt to get oob but will put chair alarm on chair incase he desides to get oob.
--- NOTE | 2025-05-09 14:00 | W.PN.NEPH.PH ---
Today's Communication / Plan
-
serologies
Assessment/Plan
-
IMP:
POLA
Metastatic Renal Cell Carcinoma with Spinal Column Metastasis and subsequent Spinal Infection s/p Left L1 & B/L L2 Segmental Artery Embolization (03/30/25); T12-L2 laminectomy, Left L1/2 corpectomy, T11-L4 fusion (03/31/25); Thoracolumbar Wound
Washout with PRS closure (04/30/2025).
recent PET/CT on 02/27/2025 there is also high FDG activity/pulmonary nodule left upper lobe.
MSSA Bacteremia secondary to Spinal Infection
Status post left nephrectomy for RCC.
Acute urine retention
Obstructive uropathy with right JJ stent placed on 05/05/2025
Elevated anion gap metabolic acidosis.
Chronic normocytic anemia
Severe Protein Calorie Malnutrition
Anxiety / Depression
Hyperalbuminemia
Plan:
continue NSS
follow BMP
Mild pelvicalyceal dilatation on ultrasound only. Hopefully creatinine will begin to improve in the next 24 hours especially given that he has what would appear to be a postobstructive diuresis.
However timeline is not complete as diagnosis of obstruction was not done at [place]. There is certainly the possibility that the intravenous contrast from earlier in March may have caused more chronic injury.
There is also the possibility that he may have developed an intrinsic renal issue, though unlikely. I will check serologies at this time on the possibility.
He is still try to get home because of family issues
-
-
Date of Service: May 09, 2025
CC / HPI / ROS
-
Chief Complaint:
POLA
History of Present Illness:
POLA/Cr up to 4.9
acidosis persists 21
BP stable
still with back pain
Review of Systems:
no CP/SOB
nonoliguric
Labs
-
Labs:
WBC 12.3 10^3/uL (4.8-10.8) H 05/08/25 05:39
RBC 2.61 10^6/uL (4.70-6.10) L 05/08/25 05:39
Hgb 8.0 g/dL (13.0-18.0) L 05/08/25 05:39
Hct 24.6 % (39.0-52.0) L 05/08/25 05:39
Plt Count 313 10^3/uL (130-400) 05/08/25 05:39
Sodium 144 mmol/L (135-145) 05/09/25 06:59
Potassium 4.1 mmol/L (3.5-5.1) 05/09/25 06:59
Chloride 107 mmol/L (98-107) 05/09/25 06:59
Carbon Dioxide 21 mmol/L (22-30) L 05/09/25 06:59
BUN 66 mg/dl (9-20) H 05/09/25 06:59
Creatinine 4.9 mg/dL (0.7-1.3) H* 05/09/25 06:59
eGFR 13.53 05/09/25 06:59
Glucose 77 mg/dl (70-99) 05/09/25 06:59
Calcium 7.8 mg/dl (8.4-10.2) L 05/09/25 06:59
Albumin 2.3 g/dl (3.5-5.0) L 05/07/25 05:59
Physical Exam
-
Vital Signs:
Vital Signs
Temp Pulse Resp BP Pulse Ox
98.4 F 80 17 146/84 100
05/09/25 07:00 05/09/25 07:00 05/09/25 07:00 05/09/25 07:00 05/09/25 07:00
Cardiovascular:: Regular rate and rhythm
Respiratory:: Bilateral: Coarse
Lung Excursion:: Normal
Abdomen:: Nontender and Soft
Bowel Sounds:: Normal
Extremity Edema:: None: Bilateral:
--- NOTE | 2025-05-09 14:57 | CM ---
Patient seen bedside w/ sister, Beena. Initial assessment completed. Patient is a 49 y/o male past medical history of metastatic renal cell carcinoma who transferred from [facility] to today following a prolonged hospitalization. Dx Metastatic Renal
Cell Carcinoma.
Patient resides w/ spouse and their son in a 2STH, 12 steps to enter from the outside. Patient is independent in all areas, no DME reported. No SNF/HC hx. Patient's sister, Beena, requesting to be added as a secondary contact, patient agreeable.
Updated admissions, Jenny will update.
Address, point of contact and insurance verified
Per Beena, patient has Medicaid now as secondary
PCP: Patricia River
Pharmacy: [facility]
Beena stated she and patient would like to plan for patient to d/c early next week, by Sunday, as he is having a crisis at home w/ his son and needs to get home to him. Patient is needing some home care services arranged along w/ some DME.
Patient and Beena agreeable to a referral to [facility] for PT and VN. Patient will need RW, commode and cane if possible. Referral to VN placed in [facility].
Plan: Home w/ VN
[2025-05-09 15:00] VITALS: BP 150/96
[2025-05-09 17:05] LABS: Glucose - Point of Care 79 mg/dl (70-99)
[2025-05-09] MEDS: FLOMAX PO (21:07)
[2025-05-09 21:22] LABS: Glucose - Point of Care 76 mg/dl (70-99)
[2025-05-09 23:00] VITALS: BP 144/83
[2025-05-10] MEDS: ZOFRAN 4 MG IV ×2 (00:52→21:54)
[2025-05-10 07:00] VITALS: BP 136/84
[2025-05-10 07:44] LABS: Hematocrit 29.3 % (39.0-52.0); Hemoglobin 9.1 g/dL (13.0-18.0); Mean Corp Hgb Conc. 31.1 g/dL (33.0-37.0); Mean Corpuscular Volume 94.5 fL (80.0-94.0); Nucleated Red Blood Cells % 0 % (-); Platelet Count 357 10^3/uL (130-400); Red Cell Dist. Width 17.8 % (11.5-14.5)
[2025-05-10 08:01] LABS: Blood Urea Nitrogen 60 mg/dl (9-20); Calcium 8.3 mg/dl (8.4-10.2); Carbon Dioxide 12 mmol/L (22-30); Chloride 112 mmol/L (98-107); Estimated Creatinine Clearance 19 ml/min; Glucose 61 mg/dl (70-99); Potassium 4.1 mmol/L (3.5-5.1); Sodium 142 mmol/L (135-145); eGFR 14.99
[2025-05-10 08:35] LABS: Glucose - Point of Care 82 mg/dl (70-99)
[2025-05-10] MEDS: NOVOLOG FLEXPEN-LOW RESISTANCE SC ×3 (09:08→16:54)
[2025-05-10] MEDS: OASIS PO ×4 (09:09→21:52)
[2025-05-10] MEDS: SENOKOT PO ×2 (09:09→20:38)
[2025-05-10] MEDS: VITAMIN B1 PO (09:09)
[2025-05-10] MEDS: WELLBUTRIN XL (24 hour extended release) PO (09:09)
[2025-05-10] MEDS: PROSCAR PO (09:09)
[2025-05-10] MEDS: VITAMIN C PO (09:09)
[2025-05-10] MEDS: THERAGRAN PO (09:09)
[2025-05-10] MEDS: HEPARIN 5000 UNITS SC ×2 (09:10→20:37)
[2025-05-10] MEDS: ANCEF 10 IV ×2 (09:17→20:37)
--- NOTE | 2025-05-10 10:26 | W.PN.HOSP.TC ---
Today's Communication/Plan
-
Resume sodium HCO3 IV fluids
IV Protonix
Antiemetics
Assessment / Plan
Assessment / Plan
Gen-AAOx3, NAD, appears chronically ill
HEENT-NC, AT, anicteric, clear oral mm
Neck-supple
CV-reg, no M, +S1/S2
Lungs-clear B/L
Abd-soft, NT, ND
Ext-no edema
Musculoskeletal-no cyanosis, clubbing
Skin-warm and dry
Neuro-grossly non-focal
Psych-calm, cooperative
Impression:
Metastatic renal cell carcinoma.
-Status post left nephrectomy December 2024.
MSSA bacteremia secondary to spinal wound infection.
Acute kidney injury.
Acute on chronic metabolic acidosis.
Right hydronephrosis.
Acute urinary retention requiring Eldridge catheter.
Malignant pain requiring opiates but
Severe protein calorie malnutrition.
Anxiety/depression
Plan
Metastatic Renal Cell Carcinoma with Spinal Column Metastasis and subsequent Spinal Infection s/p Left L1 & B/L L2 Segmental Artery Embolization (03/30/25); T12-L2 laminectomy, Left L1/2 corpectomy, T11-L4 fusion (03/31/25); Thoracolumbar Wound
Washout with PRS closure (04/30/2025).
In review of her recent PET/CT on 02/27/2025 there is also high FDG activity/pulmonary nodule left upper lobe.
Consult oncology for further staging and treatment options
MSSA Bacteremia secondary to Spinal Infection
-Continue cefazolin 2gm q12h through Jun 10
-Will likely need chronic cefadroxil afterwards
-Follow-up schedule with ID at [place]
Continue wound care.
� Bilateral JEEVAN drain, monitor output daily. Consider removing drains if output less than 30 mL in 2 consecutive days
� Continue wound VAC plan through May 11 as per [facility] plastic surgery service
Acute kidney injury -unclear etiology. Creatinine remains elevated, 4.5. Urine output is good.
Status post left nephrectomy for RCC.
Acute urine retention -Eldridge catheter in place.
Obstructive uropathy with right JJ stent placed on 05/05/2025
Elevated anion gap metabolic acidosis.
? If CKD
UA is skewed given Eldridge catheter trauma
Urine sodium 115
Urine eosinophils pending
Renal ultrasound noted, estimated bladder volume 70 cc. No ureteral jets demonstrated. Status post left nephrectomy. Right ureteral stent visualized. Mild right pelvic calyceal dilation. Echogenicity of the right kidney appears diffusely
increased relative to the liver, nonspecific finding suggesting medical renal disease.
Suspect low volume status since elevated BUN.
Initiated on IV fluids with bicarbonate again today for ongoing high anion gap metabolic acidosis, bicarbonate 12. Anion gap 18.
Chronic normocytic anemia
Iron studies indicative of mild iron deficiency and anemia of chronic disease
Erythropoietin level of 4, low end of normal range.
Follow hemoglobin
Pain Management
-Patient previously on Morphine ER which was switched to Morphine IR when DHT was placed
-Patient had been refusing scheduled doses of narcotics
-Continue oxycodone PRN
Severe Protein Calorie Malnutrition - DHT placed at [place], has since been removed. Patient does not want it replaced.
Patient reports no swallowing issues, although with persistent nausea and vomiting and metallic taste predicting sufficient oral intake.
Will change Protonix to IV daily. Unclear if uremia is playing a role in terms of anorexia and metallic taste. Defer to nephrology.
-Allow regular diet
-Consult Dietary. Patient refusing protein shakes.
Anxiety / Depression
-Continue bupropion
Deconditioning
-Consult PT/OT
DVT proph: SC Heparin
Code Status: Full Code
Dispo -ideally patient is needs to go to SNF on discharge but he prefers to go home as he wants to take care of his family. He seems to have little insight into the severity of his illness and the trajectory of his recovery.
Not medically stable for discharge given ongoing renal failure, anemia, malnutrition.
Anticipated Discharge: > 48 hours
Subjective/Interval History
-
Date of Service: May 10, 2025
Patient seen and examined. Complaining of ongoing nausea whenever he tries to eat.
Objective Data
-
Labs:
Laboratory Results
05/10/25
06:32
WBC 12.1 H
Hgb 9.1 L
Hct 29.3 L
Plt Count 357
Sodium 142
Potassium 4.1
Chloride 112 H
Carbon Dioxide 12 L*
BUN 60 H
Creatinine 4.5 H*
Glucose 61 L
Calcium 8.3 L
Vital Signs:
Vital Signs
Temp Pulse Resp BP Pulse Ox
98.0 F 74 17 136/84 100
05/10/25 07:00 05/10/25 07:00 05/10/25 07:00 05/10/25 07:00 05/10/25 07:00
I&O
05/09/25 05/10/25 05/11/25
06:59 05:59 06:59
Intake Total 980 / 980 1020 / 1020
Output Total 1300 / 1300 3105 / 3105
Balance -320 / -320 -2085 / -2084
Review of Systems
-
History Source: Patient
All other systems: Reviewed and negative
[2025-05-10] MEDS: SODIUM BICARBONATE 1150 MEQ IV ×2 (10:30→21:30)
[2025-05-10] MEDS: NSS (PRESERVATIVE FREE) 10 ML IV (10:35)
[2025-05-10] MEDS: PROTONIX IV 40 MG IV (10:35)
[2025-05-10 11:45] LABS: Glucose - Point of Care 71 mg/dl (70-99)
--- NOTE | 2025-05-10 13:42 | W.PN.NEPH.PH ---
Today's Communication / Plan
-
follow BMP
Assessment/Plan
-
IMP:
POLA
Metastatic Renal Cell Carcinoma with Spinal Column Metastasis and subsequent Spinal Infection s/p Left L1 & B/L L2 Segmental Artery Embolization (03/30/25); T12-L2 laminectomy, Left L1/2 corpectomy, T11-L4 fusion (03/31/25); Thoracolumbar Wound
Washout with PRS closure (04/30/2025).
recent PET/CT on 02/27/2025 there is also high FDG activity/pulmonary nodule left upper lobe.
MSSA Bacteremia secondary to Spinal Infection
Status post left nephrectomy for RCC.
Acute urine retention
Obstructive uropathy with right JJ stent placed on 05/05/2025
Elevated anion gap metabolic acidosis.
Chronic normocytic anemia
Severe Protein Calorie Malnutrition
Anxiety / Depression
Hyperalbuminemia
Plan:
continue IVF, switched to bicarb based
follow BMP
Mild pelvicalyceal dilatation on ultrasound only. Hopefully creatinine will continue to improve
However timeline is not complete as diagnosis of obstruction was not done at [place]. There is certainly the possibility that the intravenous contrast from earlier in March may have caused more chronic injury.
There is also the possibility that he may have developed an intrinsic renal issue, though unlikely.
serologies pending
He is still try to get home because of family issues
-
-
Date of Service: May 10, 2025
CC / HPI / ROS
-
Chief Complaint:
POLA
History of Present Illness:
POLA/Cr down to 4.5
acidosis persists 12
BP stable
still with back pain
Review of Systems:
no CP/SOB
nonoliguric with lovett
Labs
-
Labs:
WBC 12.1 10^3/uL (4.8-10.8) H 05/10/25 06:32
RBC 3.10 10^6/uL (4.70-6.10) L 05/10/25 06:32
Hgb 9.1 g/dL (13.0-18.0) L 05/10/25 06:32
Hct 29.3 % (39.0-52.0) L 05/10/25 06:32
Plt Count 357 10^3/uL (130-400) 05/10/25 06:32
Sodium 142 mmol/L (135-145) 05/10/25 06:32
Potassium 4.1 mmol/L (3.5-5.1) 05/10/25 06:32
Chloride 112 mmol/L (98-107) H 05/10/25 06:32
Carbon Dioxide 12 mmol/L (22-30) L* 05/10/25 06:32
BUN 60 mg/dl (9-20) H 05/10/25 06:32
Creatinine 4.5 mg/dL (0.7-1.3) H* 05/10/25 06:32
eGFR 14.99 05/10/25 06:32
Glucose 61 mg/dl (70-99) L 05/10/25 06:32
Calcium 8.3 mg/dl (8.4-10.2) L 05/10/25 06:32
Albumin 2.3 g/dl (3.5-5.0) L 05/07/25 05:59
Physical Exam
-
Vital Signs:
Vital Signs
Temp Pulse Resp BP Pulse Ox
98.0 F 74 17 136/84 100
05/10/25 07:00 05/10/25 07:00 05/10/25 07:00 05/10/25 07:00 05/10/25 07:00
Cardiovascular:: Regular rate and rhythm
Respiratory:: Bilateral: Coarse
Lung Excursion:: Normal
Abdomen:: Nontender and Soft
Bowel Sounds:: Normal
Extremity Edema:: None: Bilateral:
[2025-05-10 15:00] VITALS: BP 131/87
--- NOTE | 2025-05-10 15:41 | PTCARENOTE ---
PT requested to get to side of bed. he refused to get oob to chair. we did sit hip up on edge of bed for fifteen minutes. he was unable to stand up it appears to have bilateral foot drop, bed linens changes, pt put back to bed and his happier.
[2025-05-10 16:26] LABS: Glucose - Point of Care 71 mg/dl (70-99)
[2025-05-10 21:26] LABS: Glucose - Point of Care 61 mg/dl (70-99)
--- NOTE | 2025-05-10 21:44 | PTCARENOTE ---
PCT informed this RN that blood glucose level was 61. Pt was given 15 ounces of orange juice, but began to vomit after oral intake. House provider TT. Pt had a PRN order for Dextrose. Ordered to give 1/2 amp. Rechecked Blood sugar in 15 minutes with
a reading of 93. Pt was also given a dose of zofran for the nausea.
[2025-05-10] MEDS: FLOMAX PO (21:52)
[2025-05-10 22:19] LABS: Glucose - Point of Care 93 mg/dl (70-99)
[2025-05-10 23:35] VITALS: BP 133/78
[2025-05-11 03:24] LABS: Glucose - Point of Care 71 mg/dl (70-99)
--- NOTE | 2025-05-11 04:48 | PTCARENOTE ---
Pt is c/o of 8/10 pain in B/L feet and ankles. Has an order for 5 MG PO Roxicodone. Pt is unable to take PO meds due to increased nausea and vomiting. House Provider TT. New orders given. See MAR.
[2025-05-11] MEDS: DILAUDID 0.25 MG IV (05:08)
[2025-05-11 05:53] VITALS: BMI 20.5
[2025-05-11 06:32] LABS: Glucose - Point of Care 84 mg/dl (70-99)
[2025-05-11 06:33] LABS: Hematocrit 26.9 % (39.0-52.0); Hemoglobin 8.5 g/dL (13.0-18.0); Mean Corp Hgb Conc. 31.6 g/dL (33.0-37.0); Mean Corpuscular Volume 91.8 fL (80.0-94.0); Nucleated Red Blood Cells % 0 % (-); Platelet Count 325 10^3/uL (130-400); Red Cell Dist. Width 18.1 % (11.5-14.5)
[2025-05-11 07:01] LABS: Blood Urea Nitrogen 57 mg/dl (9-20); Calcium 8.3 mg/dl (8.4-10.2); Carbon Dioxide 15 mmol/L (22-30); Chloride 110 mmol/L (98-107); Estimated Creatinine Clearance 18 ml/min; Glucose 64 mg/dl (70-99); Potassium 3.7 mmol/L (3.5-5.1); Sodium 146 mmol/L (135-145); eGFR 15.83
[2025-05-11 07:38] VITALS: BP 142/85
[2025-05-11 07:57] LABS: Glucose - Point of Care 81 mg/dl (70-99)
[2025-05-11] MEDS: WELLBUTRIN XL (24 hour extended release) PO (07:58)
[2025-05-11] MEDS: VITAMIN C PO (07:59)
[2025-05-11] MEDS: VITAMIN B1 PO (07:59)
[2025-05-11] MEDS: SENOKOT PO ×2 (07:59→21:00)
[2025-05-11] MEDS: OASIS PO ×4 (07:59→22:23)
[2025-05-11] MEDS: PROSCAR PO (07:59)
[2025-05-11] MEDS: THERAGRAN PO (07:59)
[2025-05-11] MEDS: ANCEF 10 IV ×2 (08:05→21:00)
[2025-05-11] MEDS: NSS (PRESERVATIVE FREE) 10 ML IV (08:06)
[2025-05-11] MEDS: PROTONIX IV 40 MG IV (08:06)
[2025-05-11] MEDS: HEPARIN 5000 UNITS SC ×2 (08:07→21:00)
[2025-05-11] MEDS: NOVOLOG FLEXPEN-LOW RESISTANCE SC ×3 (08:11→17:01)
--- NOTE | 2025-05-11 10:19 | W.PN.ONC2 ---
Today's Communication / Plan
-
.
Impression
Impression
Metastatic renal cell carcinoma s/p L nephrectomy
Multifactorial anemia CKD and AOCD
MSSA bacteremia secondary to spinal infection
POLA, solitary R kidney s/p JJ stent -placed on 05/05/2025
Pain
malnutrition
multifactorial Anemia -no role for parenteral iron with ferritin 628, no b12 or folate deficency. Likely renal disease, malignancy, infection, abx, recent surgery, and JEEVAN drain with bloody drainage contributing to anemia
Plan
Plan
abx per primary service
pain management per primary service
optimize PT, OT, nutrition
Anticipate outpatient follow-up with [facility] to initiate systemic therapy upon infection and hospital recovery
Subjective/Objective
Subjective
afebrile, no hypoxia or hypotension
no new complaints
Vital Signs:
Vital Signs
Temp Pulse Resp BP Pulse Ox
97.9 F 76 14 142/85 100
05/11/25 07:38 05/11/25 07:38 05/11/25 07:38 05/11/25 07:38 05/11/25 07:38
Lab Results:
Laboratory Data
WBC 10.8 10^3/uL (4.8-10.8) 05/11/25 06:09
Hgb 8.5 g/dL (13.0-18.0) L 05/11/25 06:09
Plt Count 325 10^3/uL (130-400) 05/11/25 06:09
eGFR 15.83 05/11/25 06:09
Physical Exam
JEEVAN drain with bloody output
HEENT: No Jaundice
Pulmonary: Other (unlabored)
GI: Soft
Extremities: Pulses Present
Neuro: Non Focal
[2025-05-11 11:55] LABS: Glucose - Point of Care 71 mg/dl (70-99)
--- NOTE | 2025-05-11 14:57 | W.PN.NEPH.PH ---
Today's Communication / Plan
-
D5 W
Assessment/Plan
-
IMP:
POLA
Metastatic Renal Cell Carcinoma with Spinal Column Metastasis and subsequent Spinal Infection s/p Left L1 & B/L L2 Segmental Artery Embolization (03/30/25); T12-L2 laminectomy, Left L1/2 corpectomy, T11-L4 fusion (03/31/25); Thoracolumbar Wound
Washout with PRS closure (04/30/2025).
recent PET/CT on 02/27/2025 there is also high FDG activity/pulmonary nodule left upper lobe.
MSSA Bacteremia secondary to Spinal Infection
Status post left nephrectomy for RCC.
Acute urine retention
Obstructive uropathy with right JJ stent placed on 05/05/2025
Elevated anion gap metabolic acidosis.
Chronic normocytic anemia
Severe Protein Calorie Malnutrition
Anxiety / Depression
Hyperalbuminemia
Plan:
continue IVF, switched to bicarb based
follow BMP
Mild pelvicalyceal dilatation on ultrasound only. Hopefully creatinine will continue to improve
There is also the possibility that he may have developed an intrinsic renal issue, though unlikely.
serologies = complements normal, pending complete
Nonoliguric 2200 with serum sodium 146�will start D5W as patient appears dry unable to keep anything down
-
-
Date of Service: May 11, 2025
CC / HPI / ROS
-
Chief Complaint:
POLA
History of Present Illness:
POLA/Cr down to 4.5
acidosis persists 12
BP stable
still with back pain
Review of Systems:
no CP/SOB
nonoliguric with lovett
Labs
-
Labs:
WBC 10.8 10^3/uL (4.8-10.8) 05/11/25 06:09
RBC 2.93 10^6/uL (4.70-6.10) L 05/11/25 06:09
Hgb 8.5 g/dL (13.0-18.0) L 05/11/25 06:09
Hct 26.9 % (39.0-52.0) L 05/11/25 06:09
Plt Count 325 10^3/uL (130-400) 05/11/25 06:09
Sodium 146 mmol/L (135-145) H 05/11/25 06:09
Potassium 3.7 mmol/L (3.5-5.1) 05/11/25 06:09
Chloride 110 mmol/L (98-107) H 05/11/25 06:09
Carbon Dioxide 15 mmol/L (22-30) L 05/11/25 06:09
BUN 57 mg/dl (9-20) H 05/11/25 06:09
Creatinine 4.3 mg/dL (0.7-1.3) H* 05/11/25 06:09
eGFR 15.83 05/11/25 06:09
Glucose 64 mg/dl (70-99) L 05/11/25 06:09
Calcium 8.3 mg/dl (8.4-10.2) L 05/11/25 06:09
Albumin 2.3 g/dl (3.5-5.0) L 05/07/25 05:59
Physical Exam
-
Vital Signs:
Vital Signs
Temp Pulse Resp BP Pulse Ox
97.9 F 76 14 142/85 100
05/11/25 07:38 05/11/25 07:38 05/11/25 07:38 05/11/25 07:38 05/11/25 07:38
Cardiovascular:: Regular rate and rhythm
Respiratory:: Bilateral: Coarse
Lung Excursion:: Normal
Abdomen:: Nontender and Soft
Bowel Sounds:: Normal
Extremity Edema:: None: Bilateral:
[2025-05-11] MEDS: D5W 1000 IV ×2 (15:15→22:23)
--- NOTE | 2025-05-11 15:15 | WOUNDNOTE ---
[facility] RN note: Patient seen with Dr. Michel and ROBERT Ortiz. Spine Prevena negative pressure incisional dressing removed. Xeroform applied to few punctate ss drainage areas and covered with ABD pad, secured with silicone tape. JEEVAN drain dressings
intact. Dr. Michel removed R lateral chest suture (suspect was an old chest tube site). Site appears healed. Pinpoint ss drainage from removed suture site, area covered with dry gauze. R sacral/buttocks with small area of dry chafed skin. Sacrum
blanchable red. Sacral shaped silicone border foam applied. Skin on heels intact. Patient turns with assistance. ROBERT Ortiz and PCT to apply static air overlay mattress. Patient's appetite poor. Heels off bed with pillow. Air chair cushion given.
Encouraged patient to allow turning. He declined being positioned on his side.
--- NOTE | 2025-05-11 15:15 | WOUNDNOTE ---
[facility] RN note: Patient seen with Dr. Michel and ROBERT Ortiz. Spine Prevena negative pressure incisional dressing removed. Xeroform applied to few punctate ss drainage areas and covered with ABD pad, secured with silicone tape. JEEVAN drain dressings
intact, L medial side of JEEVAN dressing reinforced with strip of transparent dressing. Dr. Michel removed R lateral chest suture (suspect was an old chest tube site). Site appears healed. Pinpoint ss drainage from removed suture site, area covered
with dry gauze. R sacral/buttocks with small area of dry chafed skin. Sacrum blanchable red. Sacral shaped silicone border foam applied. Skin on heels intact. Patient turns with assistance. ROBERT Ortiz and PCT to apply static air overlay mattress.
Patient's appetite poor. Heels off bed with pillow. Air chair cushion given. Encouraged patient to allow turning. He declined being positioned on his side.
--- NOTE | 2025-05-11 15:32 | WOUNDNOTE ---
KAYDEN/L THIGH (POSTERIOR UPPER MEDIAL)
--- NOTE | 2025-05-11 15:59 | WOUNDNOTE ---
[facility] RN note: t/c spoke with Patricia at Dr. Adkins's office who stated if there's drainage from spine incision to apply Xeroform and dry dressing daily and if incision is closed without drainage can apply silicone foam dressing (i.e. Mepilex) and change
q 3 days and prn loosened dressing. Patricia stated can change JEEVAN dressing and apply drainage sponge if current JEEVAN dressing becomes loosened or gets soiled. Patricia stated JEEVAN drains can be removed if drainage output less than 30ml over a 24hr period over
2 consecutive days, however, wait 2 days between drain pulls. Patricia gave appointment for patient for suture removal/drain removal at [facility] floor [address] [place] [address] which is across from [facility] on 05/25/25 at 10:30am.
Patricia stated she will call patient's with appointment. Care plan and discharge instructions to be updated.
[2025-05-11 16:07] VITALS: BP 139/79
--- NOTE | 2025-05-11 16:16 | CM ---
MINOR met briefly with Charli at bedside. He had family visiting and did not want to talk. Pt is dealing with a crisis situation with his son, so is very stressed.
CM to f/u in AM.
--- NOTE | 2025-05-11 16:33 | W.PN.HOSP.TC ---
Today's Communication/Plan
-
Wound care
IV antibiotics
IV fluids
Follow BMP
Encourage small meals along with IV antiemetics
Assessment / Plan
Assessment / Plan
Impression:
Metastatic renal cell carcinoma.
-Status post left nephrectomy December 2024.
MSSA bacteremia secondary to spinal wound infection.
Acute kidney injury.
Acute on chronic metabolic acidosis.
Right hydronephrosis.
Acute urinary retention requiring Eldridge catheter.
Malignant pain requiring opiates but
Severe protein calorie malnutrition.
Anxiety/depression
Plan
Metastatic Renal Cell Carcinoma with Spinal Column Metastasis and subsequent Spinal Infection s/p Left L1 & B/L L2 Segmental Artery Embolization (03/30/25); T12-L2 laminectomy, Left L1/2 corpectomy, T11-L4 fusion (03/31/25); Thoracolumbar Wound
Washout with PRS closure (04/30/2025).
In review of her recent PET/CT on 02/27/2025 there is also high FDG activity/pulmonary nodule left upper lobe.
Consult oncology for further staging and treatment options
MSSA Bacteremia secondary to Spinal Infection
-Continue cefazolin 2gm q12h through Jun 10
-Will likely need chronic cefadroxil afterwards
-Follow-up schedule with ID at [place]
Continue wound care.
� Bilateral JEEVAN drain, monitor output daily. Consider removing drains if output less than 30 mL in 2 consecutive days
� Wound VAC removed on May
Acute kidney injury -unclear etiology. Creatinine remains elevated, 4.5. Urine output is good.
Status post left nephrectomy for RCC.
Acute urine retention -Eldridge catheter in place.
Obstructive uropathy with right JJ stent placed on 05/05/2025
Elevated anion gap metabolic acidosis.
? If CKD
UA is skewed given Eldridge catheter trauma
Urine sodium 115
Urine eosinophils pending
Renal ultrasound noted, estimated bladder volume 70 cc. No ureteral jets demonstrated. Status post left nephrectomy. Right ureteral stent visualized. Mild right pelvic calyceal dilation. Echogenicity of the right kidney appears diffusely
increased relative to the liver, nonspecific finding suggesting medical renal disease.
Suspect low volume status since elevated BUN.Initiated on IV fluids with bicarbonate again today for ongoing high anion gap metabolic acidosis, bicarbonate 12. Anion gap 18.
IV fluids switched from bicarbonate to D5 water.
Chronic normocytic anemia
Iron studies indicative of mild iron deficiency and anemia of chronic disease
Erythropoietin level of 4, low end of normal range.
Follow hemoglobin
Pain Management
-Patient previously on Morphine ER which was switched to Morphine IR when DHT was placed
-Patient had been refusing scheduled doses of narcotics
-Continue oxycodone PRN
Severe Protein Calorie Malnutrition - DHT placed at [place], has since been removed. Patient does not want it replaced.
Patient reports no swallowing issues, although with persistent nausea and vomiting and metallic taste predicting sufficient oral intake.
Persistent nausea and vomiting with minuscule oral intake possibly multifactorial in the settings of uremia as well as opioids.
Discussed with GI. At this point no clear indication for endoscopic evaluation.
-Allow regular diet
-Continue antiemetics
-Consult Dietary. Patient refusing protein shakes.
Stage I coccyx pressure injury present on admission. Continue care
Anxiety / Depression
-Continue bupropion
Deconditioning
-Consult PT/OT
DVT proph: SC Heparin
Code Status: Full Code
Dispo -ideally patient is needs to go to SNF on discharge but he prefers to go home as he wants to take care of his family. He seems to have little insight into the severity of his illness and the trajectory of his recovery.
Not medically stable for discharge given ongoing renal failure, anemia, malnutrition.
Anticipated Discharge: 24 - 48 hours
Subjective/Interval History
-
Date of Service: May 11, 2025
Objective Data
-
Labs:
Laboratory Results
05/11/25
06:09
WBC 10.8
Hgb 8.5 L
Hct 26.9 L
Plt Count 325
Sodium 146 H
Potassium 3.7
Chloride 110 H
Carbon Dioxide 15 L
BUN 57 H
Creatinine 4.3 H*
Glucose 64 L
Calcium 8.3 L
Vital Signs:
Vital Signs
Temp Pulse Resp BP Pulse Ox
98.2 F 81 16 139/79 98
05/11/25 16:07 05/11/25 16:07 05/11/25 16:07 05/11/25 16:07 05/11/25 16:07
I&O
05/10/25 05/11/25 05/12/25
05:59 06:59 06:59
Intake Total 1020 / 1020 1330 / 1330
Output Total 3105 / 3105 2210 / 2210
Balance -2085 / -2085 -880 / -880
Physical Exam
-
General: Well Developed and No Apparent Distress
HEENT: Normocephalic, Atraumatic and Moist Mucous Membranes
Respiratory: Clear to Auscultation
Cardiac: Regular Rhythm and S1/S2; Negative Murmur, Rub or Gallop
GI: Soft, Nontender, Nondistended and Normal Bowel Sounds; Negative Organomegaly
Rectal: Deferred by Provider
Genito-urinary: Eldridge
Musculoskeletal: No Clubbing, No Cyanosis, No Edema and Other (Bilateral paraspinal/T-spine level JEEVAN drain. Right-sided T-spine level wound with wound VAC in place)
Skin: Negative Rash
Neuro: Nonfocal/Grossly Intact
[2025-05-11 16:49] LABS: Glucose - Point of Care 95 mg/dl (70-99)
[2025-05-11] MEDS: ZOFRAN 4 MG IV (17:52)
[2025-05-11] MEDS: DESENEX/MITRAZOL/ZEASORB 1 APPLIC TOPICAL (20:02)
[2025-05-11 21:13] VITALS: BP 128/75
[2025-05-11] MEDS: FLOMAX PO (21:16)
[2025-05-11 22:10] LABS: Glucose - Point of Care 99 mg/dl (70-99)
[2025-05-11] MEDS: MYCOSTATIN ORAL SUSPENSION 5 ML PO (22:23)
[2025-05-11 23:26] VITALS: BP 129/67
[2025-05-12] MEDS: D5W 1000 IV ×2 (05:01→12:29)
[2025-05-12 06:00] VITALS: BMI 20.8
[2025-05-12 06:25] LABS: Hematocrit 23.7 % (39.0-52.0); Hemoglobin 7.3 g/dL (13.0-18.0); Mean Corp Hgb Conc. 30.8 g/dL (33.0-37.0); Mean Corpuscular Volume 94.4 fL (80.0-94.0); Nucleated Red Blood Cells % 0 % (-); Platelet Count 277 10^3/uL (130-400); Red Cell Dist. Width 17.7 % (11.5-14.5)
[2025-05-12 06:52] LABS: Blood Urea Nitrogen 50 mg/dl (9-20); Calcium 7.6 mg/dl (8.4-10.2); Carbon Dioxide 23 mmol/L (22-30); Chloride 106 mmol/L (98-107); Estimated Creatinine Clearance 19 ml/min; Glucose 108 mg/dl (70-99); Potassium 3.1 mmol/L (3.5-5.1); Sodium 139 mmol/L (135-145); eGFR 16.76
[2025-05-12 07:20] VITALS: BP 126/71
[2025-05-12 07:47] LABS: Glucose - Point of Care 133 mg/dl (70-99)
[2025-05-12] MEDS: NOVOLOG FLEXPEN-LOW RESISTANCE SC ×3 (07:49→18:19)
[2025-05-12] MEDS: NSS (PRESERVATIVE FREE) 10 ML IV (08:19)
[2025-05-12] MEDS: PROTONIX IV 40 MG IV (08:19)
[2025-05-12] MEDS: HEPARIN 5000 UNITS SC ×2 (08:19→20:43)
[2025-05-12] MEDS: MYCOSTATIN ORAL SUSPENSION 5 ML PO ×3 (08:19→22:47)
[2025-05-12] MEDS: PROSCAR PO (08:21)
[2025-05-12] MEDS: VITAMIN B1 PO (08:21)
[2025-05-12] MEDS: WELLBUTRIN XL (24 hour extended release) PO (08:21)
[2025-05-12] MEDS: OASIS PO ×4 (08:21→22:52)
[2025-05-12] MEDS: SENOKOT PO ×2 (08:21→20:48)
[2025-05-12] MEDS: THERAGRAN PO (08:21)
[2025-05-12] MEDS: VITAMIN C PO (08:21)
[2025-05-12] MEDS: DESENEX/MITRAZOL/ZEASORB 1 APPLIC TOPICAL ×2 (08:23→20:46)
[2025-05-12] MEDS: ZOFRAN 4 MG IV (08:26)
[2025-05-12] MEDS: ANCEF 10 IV ×2 (08:26→20:43)
--- NOTE | 2025-05-12 08:41 | W.PN.ONC2 ---
Today's Communication / Plan
-
.
Impression
Impression
Metastatic renal cell carcinoma s/p L nephrectomy
MSSA bacteremia secondary to spinal infection
POLA, solitary R kidney s/p JJ stent -placed on 05/05/2025 -creatine peak 4.9 and has trended to 4.1 today
Pain
malnutrition
multifactorial Anemia -no role for parenteral iron with ferritin 628, no b12 or folate deficency. Likely renal disease, malignancy, infection, abx, recent surgery, and JEEVAN drain with bloody drainage contributing to anemia
Plan
Plan
abx per primary service
wound care
pain management per primary service
optimize PT, OT, nutrition
Anticipate outpatient follow-up with [facility] to initiate systemic therapy upon infection and hospital recovery
Subjective/Objective
Subjective
afebrile, no hypoxia or hypotension
using zofran prn nausea
continues with poor appetite
c/o dry mouth, however, declining artificial salvia
Vital Signs:
Vital Signs
Temp Pulse Resp BP Pulse Ox
97.3 F 76 16 126/71 100
05/12/25 07:20 05/12/25 07:20 05/12/25 07:20 05/12/25 07:20 05/12/25 07:20
Lab Results:
Laboratory Data
WBC 8.0 10^3/uL (4.8-10.8) 05/12/25 05:38
Hgb 7.3 g/dL (13.0-18.0) L 05/12/25 05:38
Plt Count 277 10^3/uL (130-400) 05/12/25 05:38
eGFR 16.76 05/12/25 05:38
Physical Exam
2 JEEVAN drains with bloody drainage
HEENT: No Jaundice or Moist Mucous Membranes (dry)
Pulmonary: Other (unlabored)
GI: Soft
Extremities: Pulses Present
Neuro: Non Focal
--- NOTE | 2025-05-12 10:44 | VNURNOTE ---
Addendum entered by Ninoska Srinivasan RN 05/12/25 11:38:
Spoke with pt's spouse Letty. She stated she spoke with pt last night and he is now agreeable to rehab. CM notified.
Addendum entered by Ninoska Srinivasan RN 05/12/25 11:13:
Reached out to spouse to discuss [facility] services. No answer, left message.
Original Note:
Chart reviewed. Liaison attempted to meet with pt at bedside. He was sound asleep and not disturbed. Noted DME needs: commode, walker, cane. Sent Rx and preliminary clinicals to [facility]. Updated Dr Mccarthy Note pending.
Per Ankita at [facility], they do not carry canes. DH PT to provide prior to DC.
DME with [facility] pending completed paperwork.
[facility] referral accepted in [facility].
[2025-05-12 11:33] LABS: Glucose - Point of Care 134 mg/dl (70-99)
--- NOTE | 2025-05-12 13:28 | W.PN.NEPH.PH ---
Today's Communication / Plan
-
Decrease D5W to 60 cc
Assessment/Plan
-
IMP:
POLA
Metastatic Renal Cell Carcinoma with Spinal Column Metastasis and subsequent Spinal Infection s/p Left L1 & B/L L2 Segmental Artery Embolization (03/30/25); T12-L2 laminectomy, Left L1/2 corpectomy, T11-L4 fusion (03/31/25); Thoracolumbar Wound
Washout with PRS closure (04/30/2025).
recent PET/CT on 02/27/2025 there is also high FDG activity/pulmonary nodule left upper lobe.
MSSA Bacteremia secondary to Spinal Infection
Status post left nephrectomy for RCC.
Acute urine retention
Obstructive uropathy with right JJ stent placed on 05/05/2025
Elevated anion gap metabolic acidosis.
Chronic normocytic anemia
Severe Protein Calorie Malnutrition
Anxiety / Depression
Hyperalbuminemia
Plan:
continue IVF, switched to bicarb based
follow BMP
Mild pelvicalyceal dilatation on ultrasound only.
Nonoliguric creatinine slightly improved
serologies = complements normal, pending complete
Continues to have nausea vomiting and dry heaving unable to eat
Responded to D5 W for hyper natremia. Will decrease the rate to 60 mL/min
Discussed with hospital medicine as to whether his nausea vomiting is uremic symptoms nystatin was started yesterday for what appears to be thrush though not sure that is the case of thrush.
This GFR is in 19 estimated low improving from admission BUN is down 25 points as well with that said he has minimal muscle mass and certainly could have more progressive disease acutely contributing to his nausea.
Did not discuss dialysis with the patient but certainly we can bring that up to him in the next 24 hours or so. No acute need for dialysis though no obvious cause of his GI symptoms
-
-
Date of Service: May 12, 2025
CC / HPI / ROS
-
Chief Complaint:
POLA
History of Present Illness:
POLA/Cr down to 4.5
acidosis persists 12 improved
BP stable
still with back pain
Review of Systems:
no CP/SOB
nonoliguric with lovett
Nausea vomiting dry heaving persist
Labs
-
Labs:
WBC 8.0 10^3/uL (4.8-10.8) 05/12/25 05:38
RBC 2.51 10^6/uL (4.70-6.10) L 05/12/25 05:38
Hgb 7.3 g/dL (13.0-18.0) L 05/12/25 05:38
Hct 23.7 % (39.0-52.0) L 05/12/25 05:38
Plt Count 277 10^3/uL (130-400) 05/12/25 05:38
Sodium 139 mmol/L (135-145) 05/12/25 05:38
Potassium 3.1 mmol/L (3.5-5.1) L 05/12/25 05:38
Chloride 106 mmol/L (98-107) 05/12/25 05:38
Carbon Dioxide 23 mmol/L (22-30) 05/12/25 05:38
BUN 50 mg/dl (9-20) H 05/12/25 05:38
Creatinine 4.1 mg/dL (0.7-1.3) H* 05/12/25 05:38
eGFR 16.76 05/12/25 05:38
Glucose 108 mg/dl (70-99) H 05/12/25 05:38
Calcium 7.6 mg/dl (8.4-10.2) L 05/12/25 05:38
Albumin 2.3 g/dl (3.5-5.0) L 05/07/25 05:59
Physical Exam
-
Vital Signs:
Vital Signs
Temp Pulse Resp BP Pulse Ox
97.3 F 76 16 126/71 100
05/12/25 07:20 05/12/25 07:20 05/12/25 07:20 05/12/25 07:20 05/12/25 07:20
Cardiovascular:: Regular rate and rhythm
Respiratory:: Bilateral: Coarse
Lung Excursion:: Normal
Abdomen:: Nontender and Soft
Bowel Sounds:: Normal
Extremity Edema:: None: Bilateral:
--- NOTE | 2025-05-12 15:54 | W.PN.HOSP.TC ---
Today's Communication/Plan
-
IV fluids
Follow renal function
Observe oral intake
Empiric nystatin
Assessment / Plan
Assessment / Plan
Impression:
Metastatic renal cell carcinoma.
-Status post left nephrectomy December 2024.
MSSA bacteremia secondary to spinal wound infection.
Acute kidney injury.
Acute on chronic metabolic acidosis.
Right hydronephrosis.
Acute urinary retention requiring Eldridge catheter.
Malignant pain requiring opiates but
Severe protein calorie malnutrition.
Anxiety/depression
Plan
Metastatic Renal Cell Carcinoma with Spinal Column Metastasis and subsequent Spinal Infection s/p Left L1 & B/L L2 Segmental Artery Embolization (03/30/25); T12-L2 laminectomy, Left L1/2 corpectomy, T11-L4 fusion (03/31/25); Thoracolumbar Wound
Washout with PRS closure (04/30/2025).
In review of her recent PET/CT on 02/27/2025 there is also high FDG activity/pulmonary nodule left upper lobe.
Consult oncology for further staging and treatment options
MSSA Bacteremia secondary to Spinal Infection
-Continue cefazolin 2gm q12h through Jun 10
-Will likely need chronic cefadroxil afterwards
-Follow-up schedule with ID at [place]
Continue wound care.
� Bilateral JEEVAN drain, monitor output daily. Consider removing drains if output less than 30 mL in 2 consecutive days
� Wound VAC removed on May
Acute kidney injury -unclear etiology. Creatinine remains elevated, 4.5. Urine output is good.
Status post left nephrectomy for RCC.
Acute urine retention -Eldridge catheter in place.
Obstructive uropathy with right JJ stent placed on 05/05/2025
Elevated anion gap metabolic acidosis.
? If CKD
UA is skewed given Eldridge catheter trauma
Urine sodium 115
Urine eosinophils pending
Renal ultrasound noted, estimated bladder volume 70 cc. No ureteral jets demonstrated. Status post left nephrectomy. Right ureteral stent visualized. Mild right pelvic calyceal dilation. Echogenicity of the right kidney appears diffusely
increased relative to the liver, nonspecific finding suggesting medical renal disease.
Suspect low volume status since elevated BUN.Initiated on IV fluids with bicarbonate again today for ongoing high anion gap metabolic acidosis, bicarbonate 12. Anion gap 18.
IV fluids switched from bicarbonate to D5 water.
Chronic normocytic anemia
Iron studies indicative of mild iron deficiency and anemia of chronic disease
Erythropoietin level of 4, low end of normal range.
Follow hemoglobin
Pain Management
-Patient previously on Morphine ER which was switched to Morphine IR when DHT was placed
-Patient had been refusing scheduled doses of narcotics
-Continue oxycodone PRN
Severe Protein Calorie Malnutrition - DHT placed at [place], has since been removed. Patient does not want it replaced.
Patient reports no swallowing issues, although with persistent nausea and vomiting and metallic taste predicting sufficient oral intake.
Persistent nausea and vomiting with minuscule oral intake possibly multifactorial in the settings of uremia as well as opioids.
Exam with no thrash in oral cavity, although initiated empirically on nystatin on 05/12.
Discussed with GI. At this point no clear indication for endoscopic evaluation.
-Allow regular diet
-Continue antiemetics
-Consult Dietary. Patient refusing protein shakes.
Stage I coccyx pressure injury present on admission. Continue care
Anxiety / Depression
-Continue bupropion
Deconditioning
-Consult PT/OT
DVT proph: SC Heparin
Code Status: Full Code
Dispo -ideally patient is needs to go to SNF on discharge but he prefers to go home as he wants to take care of his family. He seems to have little insight into the severity of his illness and the trajectory of his recovery.
Not medically stable for discharge given ongoing renal failure, anemia, malnutrition.
Anticipated Discharge: > 48 hours
Subjective/Interval History
-
Date of Service: May 12, 2025
Objective Data
-
Labs:
Laboratory Results
05/12/25
05:38
WBC 8.0
Hgb 7.3 L
Hct 23.7 L
Plt Count 277
Sodium 139
Potassium 3.1 L
Chloride 106
Carbon Dioxide 23
BUN 50 H
Creatinine 4.1 H*
Glucose 108 H
Calcium 7.6 L
Vital Signs:
Vital Signs
Temp Pulse Resp BP Pulse Ox
97.3 F 76 16 126/71 100
05/12/25 07:20 05/12/25 07:20 05/12/25 07:20 05/12/25 07:20 05/12/25 07:20
I&O
05/11/25 05/12/25 05/13/25
06:59 06:59 06:59
Intake Total 1330 / 1330 1800 / 1800
Output Total 2210 / 2210 2170 / 2170
Balance -880 / -880 -370 / -370
Physical Exam
-
General: Well Developed and No Apparent Distress
HEENT: Normocephalic, Atraumatic and Moist Mucous Membranes
Respiratory: Clear to Auscultation
Cardiac: Regular Rhythm and S1/S2; Negative Murmur, Rub or Gallop
GI: Soft, Nontender, Nondistended and Normal Bowel Sounds; Negative Organomegaly
Rectal: Deferred by Provider
Genito-urinary: Eldridge
Musculoskeletal: No Clubbing, No Cyanosis, No Edema and Other (Bilateral paraspinal/T-spine level JEEVAN drain. Right-sided T-spine level wound with wound VAC in place)
Skin: Negative Rash
Neuro: Awake, Alert, Oriented, AO x 3, Tremors (Mild bilateral upper extremity resting tremor) and Nonfocal/Grossly Intact
[2025-05-12 16:00] VITALS: BP 110/67
[2025-05-12] MEDS: MYCOSTATIN ORAL SUSPENSION PO (17:43)
[2025-05-12 17:53] LABS: Glucose - Point of Care 115 mg/dl (70-99)
[2025-05-12 21:22] LABS: Glucose - Point of Care 112 mg/dl (70-99)
[2025-05-12] MEDS: FLOMAX PO (22:47)
[2025-05-12 23:19] VITALS: BP 128/70
[2025-05-13 01:01] LABS: ANA, IgG Reflex to HEp-2 None Detected (None Detected); Serine Protease-3, IgG 36 AU/mL (0-19)
[2025-05-13] MEDS: D5W 1000 IV (03:49)
[2025-05-13 05:35] VITALS: BMI 21.0
[2025-05-13 06:34] LABS: Hematocrit 24.1 % (39.0-52.0); Hemoglobin 8.1 g/dL (13.0-18.0); Mean Corp Hgb Conc. 33.6 g/dL (33.0-37.0); Mean Corpuscular Volume 88.9 fL (80.0-94.0); Nucleated Red Blood Cells % 0 % (-); Platelet Count 288 10^3/uL (130-400); Red Cell Dist. Width 16.7 % (11.5-14.5)
[2025-05-13 06:57] LABS: Blood Urea Nitrogen 44 mg/dl (9-20); Calcium 7.4 mg/dl (8.4-10.2); Carbon Dioxide 22 mmol/L (22-30); Chloride 104 mmol/L (98-107); Estimated Creatinine Clearance 20 ml/min; Glucose 93 mg/dl (70-99); Potassium 2.9 mmol/L (3.5-5.1); Sodium 134 mmol/L (135-145); eGFR 17.80
[2025-05-13 07:25] VITALS: BP 127/80
[2025-05-13 07:47] LABS: Glucose - Point of Care 108 mg/dl (70-99)
[2025-05-13] MEDS: NOVOLOG FLEXPEN-LOW RESISTANCE SC ×3 (08:01→16:37)
[2025-05-13] MEDS: OASIS PO ×4 (08:37→21:49)
[2025-05-13] MEDS: PROSCAR PO (08:37)
[2025-05-13] MEDS: VITAMIN B1 PO (08:38)
[2025-05-13] MEDS: WELLBUTRIN XL (24 hour extended release) PO (08:38)
[2025-05-13] MEDS: THERAGRAN PO (08:38)
[2025-05-13] MEDS: SENOKOT PO ×2 (08:38→20:41)
[2025-05-13] MEDS: VITAMIN C PO (08:38)
[2025-05-13] MEDS: HEPARIN 5000 UNITS SC ×2 (08:40→20:40)
[2025-05-13] MEDS: NSS (PRESERVATIVE FREE) 10 ML IV (08:40)
[2025-05-13] MEDS: MYCOSTATIN ORAL SUSPENSION 5 ML PO ×2 (08:40→18:12)
[2025-05-13] MEDS: PROTONIX IV 40 MG IV (08:40)
[2025-05-13] MEDS: DESENEX/MITRAZOL/ZEASORB 1 APPLIC TOPICAL ×2 (08:47→20:43)
[2025-05-13] MEDS: ANCEF 10 IV ×2 (08:48→20:40)
[2025-05-13 12:09] LABS: Glucose - Point of Care 111 mg/dl (70-99)
[2025-05-13] MEDS: MYCOSTATIN ORAL SUSPENSION PO ×2 (14:13→21:49)
--- NOTE | 2025-05-13 14:33 | W.PN.HOSP.TC ---
Today's Communication/Plan
-
Persistent nausea and vomiting with minuscule oral intake
Will check MRI of the brain to rule out intracranial process
Assessment / Plan
Assessment / Plan
Impression:
Metastatic renal cell carcinoma.
-Status post left nephrectomy December 2024.
MSSA bacteremia secondary to spinal wound infection.
Acute kidney injury.
Acute on chronic metabolic acidosis.
Right hydronephrosis.
Acute urinary retention requiring Eldridge catheter.
Malignant pain requiring opiates but
Severe protein calorie malnutrition.
Anxiety/depression
Plan
Metastatic Renal Cell Carcinoma with Spinal Column Metastasis and subsequent Spinal Infection s/p Left L1 & B/L L2 Segmental Artery Embolization (03/30/25); T12-L2 laminectomy, Left L1/2 corpectomy, T11-L4 fusion (03/31/25); Thoracolumbar Wound
Washout with PRS closure (04/30/2025).
In review of her recent PET/CT on 02/27/2025 there is also high FDG activity/pulmonary nodule left upper lobe.
Consult oncology for further staging and treatment options
MSSA Bacteremia secondary to Spinal Infection
-Continue cefazolin 2gm q12h through Jun 10
-Will likely need chronic cefadroxil afterwards
-Follow-up schedule with ID at [place]
Continue wound care.
� Bilateral JEEVAN drain, monitor output daily. Consider removing drains if output less than 30 mL in 2 consecutive days
� Wound VAC removed on May
Acute kidney injury -unclear etiology. Creatinine remains elevated, 4.5. Urine output is good.
Status post left nephrectomy for RCC.
Acute urine retention -Eldridge catheter in place.
Obstructive uropathy with right JJ stent placed on 05/05/2025
Elevated anion gap metabolic acidosis.
? If CKD
UA is skewed given Eldridge catheter trauma
Urine sodium 115
Urine eosinophils pending
Renal ultrasound noted, estimated bladder volume 70 cc. No ureteral jets demonstrated. Status post left nephrectomy. Right ureteral stent visualized. Mild right pelvic calyceal dilation. Echogenicity of the right kidney appears diffusely
increased relative to the liver, nonspecific finding suggesting medical renal disease.
Suspect low volume status since elevated BUN.Initiated on IV fluids with bicarbonate again today for ongoing high anion gap metabolic acidosis, bicarbonate 12. Anion gap 18.
IV fluids switched from bicarbonate to D5 water.
Chronic normocytic anemia
Iron studies indicative of mild iron deficiency and anemia of chronic disease
Erythropoietin level of 4, low end of normal range.
Follow hemoglobin
Pain Management
-Patient previously on Morphine ER which was switched to Morphine IR when DHT was placed
-Patient had been refusing scheduled doses of narcotics
-Continue oxycodone PRN
Severe Protein Calorie Malnutrition - DHT placed at [place], has since been removed. Patient does not want it replaced.
Patient reports no swallowing issues, although with persistent nausea and vomiting and metallic taste predicting sufficient oral intake.
Persistent nausea and vomiting with minuscule oral intake possibly multifactorial in the settings of uremia as well as opioids.
Exam with no thrash in oral cavity, although initiated empirically on nystatin on 05/12.
Discussed with GI. At this point no clear indication for endoscopic evaluation.
-Allow regular diet
-Continue antiemetics
-Consult Dietary. Patient refusing protein shakes.
Stage I coccyx pressure injury present on admission. Continue care
Anxiety / Depression
-Continue bupropion
Deconditioning
-Consult PT/OT
DVT proph: SC Heparin
Code Status: Full Code
Dispo -ideally patient is needs to go to SNF on discharge but he prefers to go home as he wants to take care of his family. He seems to have little insight into the severity of his illness and the trajectory of his recovery.
Not medically stable for discharge given ongoing renal failure, anemia, malnutrition.
Anticipated Discharge: 24 - 48 hours
Subjective/Interval History
-
Date of Service: May 13, 2025
Objective Data
-
Labs:
Laboratory Results
05/13/25
05:50
WBC 7.5
Hgb 8.1 L
Hct 24.1 L
Plt Count 288
Sodium 134 L
Potassium 2.9 L
Chloride 104
Carbon Dioxide 22
BUN 44 H
Creatinine 3.9 H
Glucose 93
Calcium 7.4 L
Vital Signs:
Vital Signs
Temp Pulse Resp BP Pulse Ox
98.4 F 75 16 127/80 99
05/13/25 07:25 05/13/25 07:25 05/13/25 07:25 05/13/25 07:25 05/13/25 07:25
I&O
05/12/25 05/13/25 05/14/25
06:59 06:59 06:59
Intake Total 1800 / 1800 120 / 120
Output Total 2170 / 2170 1725 / 1725
Balance -370 / -370 -1605 / -1605
Physical Exam
-
General: Well Developed and No Apparent Distress
HEENT: Normocephalic, Atraumatic and Moist Mucous Membranes
Respiratory: Clear to Auscultation
Cardiac: Regular Rhythm and S1/S2; Negative Murmur, Rub or Gallop
GI: Soft, Nontender, Nondistended and Normal Bowel Sounds; Negative Organomegaly
Rectal: Deferred by Provider
Genito-urinary: Eldridge
Musculoskeletal: No Clubbing, No Cyanosis, No Edema and Other (Bilateral paraspinal/T-spine level JEEVAN drain. Right-sided T-spine level wound with wound VAC in place)
Skin: Negative Rash
Neuro: Awake, Alert, Oriented, AO x 3, Tremors (Mild bilateral upper extremity resting tremor) and Nonfocal/Grossly Intact
--- NOTE | 2025-05-13 15:43 | W.PN.NEPH.PH ---
Today's Communication / Plan
-
IVF
Assessment/Plan
-
IMP:
POLA
Metastatic Renal Cell Carcinoma with Spinal Column Metastasis and subsequent Spinal Infection s/p Left L1 & B/L L2 Segmental Artery Embolization (03/30/25); T12-L2 laminectomy, Left L1/2 corpectomy, T11-L4 fusion (03/31/25); Thoracolumbar Wound
Washout with PRS closure (04/30/2025).
recent PET/CT on 02/27/2025 there is also high FDG activity/pulmonary nodule left upper lobe.
MSSA Bacteremia secondary to Spinal Infection
Status post left nephrectomy for RCC.
Acute urine retention
Obstructive uropathy with right JJ stent placed on 05/05/2025
Elevated anion gap metabolic acidosis.
Chronic normocytic anemia
Severe Protein Calorie Malnutrition
Anxiety / Depression
Hyperalbuminemia
Plan:
IVF D5NS
follow BMP
elevated PR3 36. significance of this is uncertain. He is not a good candidate for a renal biopsy given solitary right kidney with hydro.
likewise, with active infection I would not empirically treat with rituxan
-
-
Date of Service: May 13, 2025
CC / HPI / ROS
-
Chief Complaint:
POLA
History of Present Illness:
POLA/Cr down to 3.9
acidosis improved
Hgb 8.9 stable
BP stable
still with back pain
K low 2.9
Review of Systems:
no CP/SOB
nonoliguric with lovett
Nausea vomiting dry heaving persists
Labs
-
Labs:
WBC 7.5 10^3/uL (4.8-10.8) 05/13/25 05:50
RBC 2.71 10^6/uL (4.70-6.10) L 05/13/25 05:50
Hgb 8.1 g/dL (13.0-18.0) L 05/13/25 05:50
Hct 24.1 % (39.0-52.0) L 05/13/25 05:50
Plt Count 288 10^3/uL (130-400) 05/13/25 05:50
Sodium 134 mmol/L (135-145) L 05/13/25 05:50
Potassium 2.9 mmol/L (3.5-5.1) L 05/13/25 05:50
Chloride 104 mmol/L (98-107) 05/13/25 05:50
Carbon Dioxide 22 mmol/L (22-30) 05/13/25 05:50
BUN 44 mg/dl (9-20) H 05/13/25 05:50
Creatinine 3.9 mg/dL (0.7-1.3) H 05/13/25 05:50
eGFR 17.80 05/13/25 05:50
Glucose 93 mg/dl (70-99) 05/13/25 05:50
Calcium 7.4 mg/dl (8.4-10.2) L 05/13/25 05:50
Albumin 2.3 g/dl (3.5-5.0) L 05/07/25 05:59
Physical Exam
-
Vital Signs:
Vital Signs
Temp Pulse Resp BP Pulse Ox
98.4 F 75 16 127/80 99
05/13/25 07:25 05/13/25 07:25 05/13/25 07:25 05/13/25 07:25 05/13/25 07:25
Cardiovascular:: Regular rate and rhythm
Respiratory:: Bilateral: Coarse
Lung Excursion:: Normal
Abdomen:: Nontender and Soft
Bowel Sounds:: Normal
Extremity Edema:: None: Bilateral:
[2025-05-13 15:45] VITALS: BP 141/81
[2025-05-13] MEDS: D5/0.9% SODIUM CHLORIDE 1000 IV (16:02)
[2025-05-13 16:34] LABS: Glucose - Point of Care 107 mg/dl (70-99)
[2025-05-13] MEDS: FLOMAX PO (21:49)
[2025-05-13 22:09] LABS: Glucose - Point of Care 98 mg/dl (70-99)
[2025-05-13 23:00] VITALS: BP 120/75
[2025-05-14 05:52] LABS: Blood Urea Nitrogen 43 mg/dl (9-20); Calcium 7.5 mg/dl (8.4-10.2); Carbon Dioxide 20 mmol/L (22-30); Chloride 107 mmol/L (98-107); Estimated Creatinine Clearance 20 ml/min; Glucose 85 mg/dl (70-99); Potassium 2.9 mmol/L (3.5-5.1); Sodium 136 mmol/L (135-145); eGFR 17.80
[2025-05-14 05:54] VITALS: BMI 20.4
[2025-05-14 08:02] VITALS: BP 134/84
[2025-05-14 08:19] LABS: Glucose - Point of Care 100 mg/dl (70-99)
[2025-05-14] MEDS: NOVOLOG FLEXPEN-LOW RESISTANCE SC ×3 (08:43→18:36)
[2025-05-14] MEDS: D5/0.9% SODIUM CHLORIDE 1000 IV (08:49)
[2025-05-14] MEDS: PROTONIX IV 40 MG IV (08:50)
[2025-05-14] MEDS: HEPARIN 5000 UNITS SC ×2 (08:50→20:42)
[2025-05-14] MEDS: NSS (PRESERVATIVE FREE) 10 ML IV (08:50)
[2025-05-14] MEDS: ANCEF 10 IV ×2 (08:51→20:42)
[2025-05-14] MEDS: DESENEX/MITRAZOL/ZEASORB 1 APPLIC TOPICAL ×2 (08:51→20:45)
[2025-05-14] MEDS: MYCOSTATIN ORAL SUSPENSION 5 ML PO ×2 (08:55→12:26)
[2025-05-14] MEDS: OASIS PO ×4 (08:56→21:02)
[2025-05-14] MEDS: VITAMIN C PO (08:57)
[2025-05-14] MEDS: PROSCAR PO (08:57)
[2025-05-14] MEDS: THERAGRAN PO (08:57)
[2025-05-14] MEDS: VITAMIN B1 PO (08:57)
[2025-05-14] MEDS: WELLBUTRIN XL (24 hour extended release) PO (08:57)
[2025-05-14] MEDS: SENOKOT PO ×2 (08:57→20:53)
--- NOTE | 2025-05-14 09:42 | W.PN.ONC2 ---
Today's Communication / Plan
-
.
Impression
Impression
Metastatic renal cell carcinoma s/p L nephrectomy
MSSA bacteremia secondary to spinal infection
POLA, solitary R kidney s/p JJ stent -placed on 05/05/2025 -creatine peak 4.9 and has trended to 4.1 today
Pain
malnutrition
multifactorial Anemia -no role for parenteral iron with ferritin 628, no b12 or folate deficency. Likely renal disease, malignancy, infection, abx, recent surgery, and JEEVAN drain with bloody drainage contributing to anemia
Plan
Plan
abx per primary service
wound care
pain management per primary service
optimize PT, OT, nutrition
Anticipate outpatient follow-up with [facility] to initiate systemic therapy upon infection and hospital recovery
Subjective/Objective
Subjective
no new complaints
afebrile, no hypoxia or hypotension
denies bleeding or pain
BM overnight
Vital Signs:
Vital Signs
Temp Pulse Resp BP Pulse Ox
97.8 F 77 17 134/84 100
05/14/25 08:02 05/14/25 08:02 05/14/25 08:02 05/14/25 08:02 05/14/25 08:02
Lab Results:
Laboratory Data
WBC 7.5 10^3/uL (4.8-10.8) 05/13/25 05:50
Hgb 8.1 g/dL (13.0-18.0) L 05/13/25 05:50
Plt Count 288 10^3/uL (130-400) 05/13/25 05:50
eGFR 17.80 05/14/25 05:09
Physical Exam
2 JEEVAN drains with bloody drainage
HEENT: No Jaundice or Moist Mucous Membranes (dry)
Pulmonary: Other (unlabored)
GI: Soft
Extremities: Pulses Present
Neuro: Non Focal
[2025-05-14 11:51] LABS: Glucose - Point of Care 101 mg/dl (70-99)
--- NOTE | 2025-05-14 11:59 | W.PN.NEPH.PH ---
Today's Communication / Plan
-
follow BMP
Assessment/Plan
-
IMP:
POAL
Metastatic Renal Cell Carcinoma with Spinal Column Metastasis and subsequent Spinal Infection s/p Left L1 & B/L L2 Segmental Artery Embolization (03/30/25); T12-L2 laminectomy, Left L1/2 corpectomy, T11-L4 fusion (03/31/25); Thoracolumbar Wound
Washout with PRS closure (04/30/2025).
recent PET/CT on 02/27/2025 there is also high FDG activity/pulmonary nodule left upper lobe.
MSSA Bacteremia secondary to Spinal Infection
Status post left nephrectomy for RCC.
Acute urine retention
Obstructive uropathy with right JJ stent placed on 05/05/2025
Elevated anion gap metabolic acidosis.
Chronic normocytic anemia
Severe Protein Calorie Malnutrition
Anxiety / Depression
Hyperalbuminemia
Plan:
IVF D5NS continue
replete K
follow BMP
elevated PR3 36. significance of this is uncertain. likely does not represent vasculitis. He is not a good candidate for a renal biopsy given solitary right kidney with hydro.
likewise, with active infection I would not empirically treat with rituxan
d/w patient that if Cr does not continue to improve, we may need to discuss dialysis
for MRI brain
-
-
Date of Service: May 14, 2025
CC / HPI / ROS
-
Chief Complaint:
POLA
History of Present Illness:
POLA/Cr stalled to 3.9
acidosis stable
Hgb stable
BP stable
still with back pain
K low 2.9
Review of Systems:
no CP/SOB
nonoliguric with lovett
Nausea vomiting dry heaving persists
Labs
-
Labs:
WBC 7.5 10^3/uL (4.8-10.8) 05/13/25 05:50
RBC 2.71 10^6/uL (4.70-6.10) L 05/13/25 05:50
Hgb 8.1 g/dL (13.0-18.0) L 05/13/25 05:50
Hct 24.1 % (39.0-52.0) L 05/13/25 05:50
Plt Count 288 10^3/uL (130-400) 05/13/25 05:50
Sodium 136 mmol/L (135-145) 05/14/25 05:09
Potassium 2.9 mmol/L (3.5-5.1) L 05/14/25 05:09
Chloride 107 mmol/L (98-107) 05/14/25 05:09
Carbon Dioxide 20 mmol/L (22-30) L 05/14/25 05:09
BUN 43 mg/dl (9-20) H 05/14/25 05:09
Creatinine 3.9 mg/dL (0.7-1.3) H 05/14/25 05:09
eGFR 17.80 05/14/25 05:09
Glucose 85 mg/dl (70-99) 05/14/25 05:09
Calcium 7.5 mg/dl (8.4-10.2) L 05/14/25 05:09
Albumin 2.3 g/dl (3.5-5.0) L 05/07/25 05:59
Physical Exam
-
Vital Signs:
Vital Signs
Temp Pulse Resp BP Pulse Ox
97.8 F 77 17 134/84 100
05/14/25 08:02 05/14/25 08:02 05/14/25 08:02 05/14/25 08:02 05/14/25 09:00
Cardiovascular:: Regular rate and rhythm
Respiratory:: Bilateral: Coarse
Lung Excursion:: Normal
Abdomen:: Nontender and Soft
Bowel Sounds:: Normal
Extremity Edema:: None: Bilateral:
[2025-05-14] MEDS: KCL 270 MEQ IV (12:25)
--- NOTE | 2025-05-14 12:36 | W.PN.HOSP.TC ---
Today's Communication/Plan
-
MRI of the brain
Antiemetics
Empiric treatment for Xi with nystatin
IV fluids
Replete potassium
Follow BMP
PT
Assessment / Plan
Assessment / Plan
Impression:
Metastatic renal cell carcinoma.
-Status post left nephrectomy December 2024.
MSSA bacteremia secondary to spinal wound infection.
Acute kidney injury.
Acute on chronic metabolic acidosis.
Right hydronephrosis.
Acute urinary retention requiring Eldridge catheter.
Malignant pain requiring opiates but
Severe protein calorie malnutrition.
Anxiety/depression
Plan
Metastatic Renal Cell Carcinoma with Spinal Column Metastasis and subsequent Spinal Infection s/p Left L1 & B/L L2 Segmental Artery Embolization (03/30/25); T12-L2 laminectomy, Left L1/2 corpectomy, T11-L4 fusion (03/31/25); Thoracolumbar Wound
Washout with PRS closure (04/30/2025).
In review of her recent PET/CT on 02/27/2025 there is also high FDG activity/pulmonary nodule left upper lobe.
Consult oncology for further staging and treatment options
MSSA Bacteremia secondary to Spinal Infection
-Continue cefazolin 2gm q12h through Jun 10
-Will likely need chronic cefadroxil afterwards
-Follow-up schedule with ID at [place]
Continue wound care.
� Bilateral JEEVAN drain, monitor output daily. Consider removing drains if output less than 30 mL in 2 consecutive days
� Wound VAC removed on May
Acute kidney injury -unclear etiology. Creatinine remains elevated, 4.5. Urine output is good.
Status post left nephrectomy for RCC.
Acute urine retention -Eldridge catheter in place.
Obstructive uropathy with right JJ stent placed on 05/05/2025
Elevated anion gap metabolic acidosis.
? If CKD
UA is skewed given Eldridge catheter trauma
Urine sodium 115
Urine eosinophils pending
Noted with mild elevation of proteinase 3 at 36. Isolated with unknown significance. Unlikely vasculitis. Patient would be a poor candidate for renal biopsy
Renal ultrasound noted, estimated bladder volume 70 cc. No ureteral jets demonstrated. Status post left nephrectomy. Right ureteral stent visualized. Mild right pelvic calyceal dilation. Echogenicity of the right kidney appears diffusely
increased relative to the liver, nonspecific finding suggesting medical renal disease.
Suspect low volume status since elevated BUN.Initiated on IV fluids with bicarbonate again today for ongoing high anion gap metabolic acidosis, bicarbonate 12. Anion gap 18.
IV fluids switched from bicarbonate to D5 water.
Chronic normocytic anemia
Iron studies indicative of mild iron deficiency and anemia of chronic disease
Erythropoietin level of 4, low end of normal range.
Follow hemoglobin
Pain Management
-Patient previously on Morphine ER which was switched to Morphine IR when DHT was placed
-Patient had been refusing scheduled doses of narcotics
-Continue oxycodone PRN
Severe Protein Calorie Malnutrition - DHT placed at [place], has since been removed. Patient does not want it replaced.
Patient reports no swallowing issues, although with persistent nausea and vomiting and metallic taste predicting sufficient oral intake.
Persistent nausea and vomiting with minuscule oral intake possibly multifactorial in the settings of uremia as well as opioids.
Exam with no thrash in oral cavity, although initiated empirically on nystatin on 05/12.
Discussed with GI. At this point no clear indication for endoscopic evaluation.
-Allow regular diet
-Continue antiemetics
-Consult Dietary. Patient refusing protein shakes.
Stage I coccyx pressure injury present on admission. Continue care
Anxiety / Depression
-Continue bupropion
Deconditioning
-Consult PT/OT
DVT proph: SC Heparin
Code Status: Full Code
Dispo -ideally patient is needs to go to SNF on discharge but he prefers to go home as he wants to take care of his family. He seems to have little insight into the severity of his illness and the trajectory of his recovery.
Not medically stable for discharge given ongoing renal failure, anemia, malnutrition.
Anticipated Discharge: 24 - 48 hours
Subjective/Interval History
-
Date of Service: May 14, 2025
Objective Data
-
Labs:
Laboratory Results
05/14/25
05:09
Sodium 136
Potassium 2.9 L
Chloride 107
Carbon Dioxide 20 L
BUN 43 H
Creatinine 3.9 H
Glucose 85
Calcium 7.5 L
Vital Signs:
Vital Signs
Temp Pulse Resp BP Pulse Ox
97.8 F 77 17 134/84 100
05/14/25 08:02 05/14/25 08:02 05/14/25 08:02 05/14/25 08:02 05/14/25 09:00
I&O
05/13/25 05/14/25 05/15/25
06:59 06:59 06:59
Intake Total 120 / 120 720 / 720
Output Total 1725 / 1725 2108 / 2108
Balance -1605 / -1605 -1388 / -1388
Physical Exam
-
General: Well Developed and No Apparent Distress
HEENT: Normocephalic, Atraumatic and Moist Mucous Membranes
Respiratory: Clear to Auscultation
Cardiac: Regular Rhythm and S1/S2; Negative Murmur, Rub or Gallop
GI: Soft, Nontender, Nondistended and Normal Bowel Sounds; Negative Organomegaly
Rectal: Deferred by Provider
Genito-urinary: Eldridge
Musculoskeletal: No Clubbing, No Cyanosis, No Edema and Other (Bilateral paraspinal/T-spine level JEEVAN drain. Right-sided T-spine level wound with wound VAC in place)
Skin: Negative Rash
Neuro: Awake, Alert, Oriented, AO x 3, Tremors (Mild bilateral upper extremity resting tremor) and Nonfocal/Grossly Intact
[2025-05-14 13:19] VITALS: BP 127/85; PULSE 86; O2SAT 99
[2025-05-14 13:21] VITALS: BP 127/85; PULSE 86; O2SAT 99
--- NOTE | 2025-05-14 15:14 | PN.CDI ---
Addendum entered and electronically signed by Chas Michel MD 05/15/25 16:27:
Reflected in progress note. Ongoing workup with no final diagnosis.
Original Note:
CDI
- -
CDI:
Physician Documentation Request
Admit Date: 05/06/25 17:42
Dear Doctor Lady,
Please review the following and provide your response in the progress notes.
Clinical Indicators:
PN, 05/14
#POLA
#Metastatic Renal Cell Carcinoma with Spinal Column Metastasis and subsequent
#...Spinal Infection s/p Left L1 & B/L L2 Segmental Artery Embolization (03/30/25);
#...Status post left nephrectomy for RCC.
#Acute urine retention
#...Obstructive uropathy with right JJ stent placed on 05/05/2025
#d/w patient that if Cr does not continue to improve,
#...we may need to discuss dialysis
#POLA/Cr stalled to 3.9
Based on the above and your clinical assessment, please clarify which, if any, accurately represents the patient's renal status:
Acute renal failure with suspected ATN
Acute renal failure, only
ATN due to POLA
Acute Renal failure with other pathology (medullary, papillary or cortical necrosis)
Other(please specify)
Criteria for POLA*
1 Increase in serum creatinine by > or = to 0.3 mg/dL (> or = to 26.5 micromol/L) within 48 hours, OR
2 Increase in serum creatinine to > or = to 1.5 times baseline, which is known or presumed to have occurred within 7 days, OR
3 Urine volume < 0.5 nL/kg/hour for six hours
Stages of Chronic Kidney Disease*
Level Description GFR
G1 Normal or High >90
G2 Mildly decreased 60-89
G3a Mildly to moderately decreased 45-59
G3b Moderately to severely decreased 30-44
G4 Severely decreased 15-29
G5 Kidney failure <15
Use of terms such as suspected, likely, concern for, or probable (associated with a specific diagnosis that is being evaluated, monitored, or treated as if it exists) are acceptable and can be coded in the inpatient setting, when documented at the
time of discharge.
Thank you,
Kait Gonzalez RN BSN CCDS
CDI Specialist
Please contact via tiger text
Please use your independent medical judgment in providing your response.
*Source: Kidney Disease: Improving Global Outcomes (KDIGO) 2012
[2025-05-14 15:56] VITALS: BP 132/86
--- NOTE | 2025-05-14 16:54 | WOUNDNOTE ---
WOC RN note: Noble Morgan re: recommend an air mattress for patient at SNF. He is high risk for a pressure injury.
[2025-05-14] MEDS: MYCOSTATIN ORAL SUSPENSION PO ×2 (17:09→21:02)
[2025-05-14] MEDS: DEXTROSE 50% SYRINGE 12.5 GRAMS IV (18:36)
[2025-05-14 18:41] LABS: Glucose - Point of Care 69 mg/dl (70-99)
[2025-05-14 18:59] LABS: Glucose - Point of Care 128 mg/dl (70-99)
[2025-05-14] MEDS: FLOMAX PO (21:02)
[2025-05-14 21:28] LABS: Glucose - Point of Care 85 mg/dl (70-99)
[2025-05-14 23:00] VITALS: BP 140/89
[2025-05-15 04:50] LABS: Glucose - Point of Care 93 mg/dl (70-99)
[2025-05-15 05:00] VITALS: BP 130/82
[2025-05-15 05:42] VITALS: BMI 19.9
[2025-05-15 06:21] LABS: Hematocrit 25.0 % (39.0-52.0); Hemoglobin 8.1 g/dL (13.0-18.0); Mean Corp Hgb Conc. 32.4 g/dL (33.0-37.0); Mean Corpuscular Volume 90.6 fL (80.0-94.0); Platelet Count 275 10^3/uL (130-400); Red Cell Dist. Width 17.4 % (11.5-14.5)
[2025-05-15] MEDS: D5/0.9% SODIUM CHLORIDE 1000 IV ×2 (06:31→21:17)
--- NOTE | 2025-05-15 06:37 | PTCARENOTE ---
Oral care was not performed on patient because he stated that it was his preference to do it in the morning.
[2025-05-15 06:43] LABS: Blood Urea Nitrogen 40 mg/dl (9-20); Calcium 7.8 mg/dl (8.4-10.2); Carbon Dioxide 20 mmol/L (22-30); Chloride 110 mmol/L (98-107); Estimated Creatinine Clearance 19 ml/min; Glucose 86 mg/dl (70-99); Magnesium 1.8 mg/dl (1.6-2.3); Potassium 3.2 mmol/L (3.5-5.1); Sodium 136 mmol/L (135-145); eGFR 17.80
[2025-05-15] MEDS: ANCEF 10 IV ×2 (07:53→21:04)
[2025-05-15] MEDS: HEPARIN 5000 UNITS SC ×2 (07:54→21:05)
[2025-05-15] MEDS: MYCOSTATIN ORAL SUSPENSION 5 ML PO ×3 (07:54→18:23)
[2025-05-15] MEDS: NSS (PRESERVATIVE FREE) 10 ML IV (07:55)
[2025-05-15] MEDS: PROTONIX IV 40 MG IV (07:57)
[2025-05-15] MEDS: THERAGRAN PO (07:58)
[2025-05-15] MEDS: VITAMIN B1 PO (07:58)
[2025-05-15] MEDS: SENOKOT PO ×2 (07:58→21:24)
[2025-05-15] MEDS: PROSCAR PO (07:58)
[2025-05-15] MEDS: WELLBUTRIN XL (24 hour extended release) PO (07:58)
[2025-05-15] MEDS: OASIS PO ×4 (07:58→21:24)
[2025-05-15] MEDS: VITAMIN C PO (07:58)
[2025-05-15 08:00] VITALS: BP 121/77
[2025-05-15 08:13] LABS: Glucose - Point of Care 102 mg/dl (70-99)
[2025-05-15] MEDS: DESENEX/MITRAZOL/ZEASORB 1 APPLIC TOPICAL ×2 (08:15→21:20)
[2025-05-15] MEDS: NOVOLOG FLEXPEN-LOW RESISTANCE SC ×3 (08:17→18:22)
--- NOTE | 2025-05-15 08:48 | W.PN.ONC2 ---
Today's Communication / Plan
-
Hgb stable 8.1g/dL
no further inpatient medical oncology recommendations, OP follow up with [facility] oncologist recommended after discharge to discuss systemic therapy options base on resololution of infection, renal function, nutrional status, and performance status.
Medical oncology will sign off. please reach out with any questions or concerns.
Impression
Impression
Metastatic renal cell carcinoma s/p L nephrectomy, brain MRI 05/14 no brain mets
MSSA bacteremia secondary to spinal infection
POLA, solitary R kidney s/p JJ stent -placed on 05/05/2025 -creatine peak 4.9 and has trended to 3.9 today
Pain
malnutrition
multifactorial Anemia -no role for parenteral iron with ferritin 628, no b12 or folate deficency. Likely renal disease, malignancy, infection, abx, recent surgery, and JEEVAN drain with bloody drainage contributing to anemia
Plan
Plan
abx per primary service
wound care
pain management per primary service
optimize PT, OT, nutrition -working with PT, plan for rehab due to weakness and impaired mobility
Anticipate outpatient follow-up with [facility] to initiate systemic therapy upon infection and hospital recovery
Subjective/Objective
Subjective
no new complaints
denies pain
poor oral intake, <50% of meals, declining supplements
Vital Signs:
Vital Signs
Temp Pulse Resp BP Pulse Ox
98.5 F 86 16 121/77 98
05/15/25 08:00 05/15/25 08:00 05/15/25 08:00 05/15/25 08:00 05/15/25 08:00
Lab Results:
Laboratory Data
WBC 7.9 10^3/uL (4.8-10.8) 05/15/25 05:42
Hgb 8.1 g/dL (13.0-18.0) L 05/15/25 05:42
Plt Count 275 10^3/uL (130-400) 05/15/25 05:42
eGFR 17.80 05/15/25 05:42
Physical Exam
2 JEEVAN drains with bloody drainage
HEENT: No Jaundice. Mucous Membranes dry
Pulmonary: unlabored
GI: Soft
Extremities: Pulses Present
Neuro: Non Focal
[2025-05-15 11:36] LABS: Glucose - Point of Care 98 mg/dl (70-99)
--- NOTE | 2025-05-15 14:06 | W.PN.NEPH.PH ---
Today's Communication / Plan
-
Continue fluid
Assessment/Plan
-
IMP:
POLA
Metastatic Renal Cell Carcinoma with Spinal Column Metastasis and subsequent Spinal Infection s/p Left L1 & B/L L2 Segmental Artery Embolization (03/30/25); T12-L2 laminectomy, Left L1/2 corpectomy, T11-L4 fusion (03/31/25); Thoracolumbar Wound
Washout with PRS closure (04/30/2025).
recent PET/CT on 02/27/2025 there is also high FDG activity/pulmonary nodule left upper lobe.
MSSA Bacteremia secondary to Spinal Infection
Status post left nephrectomy for RCC.
Acute urine retention
Obstructive uropathy with right JJ stent placed on 05/05/2025
Elevated anion gap metabolic acidosis.
Chronic normocytic anemia
Severe Protein Calorie Malnutrition
Anxiety / Depression
Hyperalbuminemia
Plan:
IVF D5NS continue
replete K
follow BMP
elevated PR3 36. significance of this is uncertain. likely does not represent vasculitis. He is not a good candidate for a renal biopsy given solitary right kidney with hydro.
likewise, with active infection I would not empirically treat with rituxan
d/w patient that if Cr does not continue to improve, we may need to discuss dialysis
Clinically better less nausea vomiting with resolution of thrush
MRI brain= no metastatic disease
-
-
Date of Service: May 15, 2025
CC / HPI / ROS
-
Chief Complaint:
POLA
History of Present Illness:
POLA/Cr stalled to 3.9
acidosis stable
Hgb stable
BP stable
still with back pain
K low 2.9
Review of Systems:
no CP/SOB
nonoliguric with lovett
Nausea vomiting dry heaving persists
Labs
-
Labs:
WBC 7.9 10^3/uL (4.8-10.8) 05/15/25 05:42
RBC 2.76 10^6/uL (4.70-6.10) L 05/15/25 05:42
Hgb 8.1 g/dL (13.0-18.0) L 05/15/25 05:42
Hct 25.0 % (39.0-52.0) L 05/15/25 05:42
Plt Count 275 10^3/uL (130-400) 05/15/25 05:42
Sodium 136 mmol/L (135-145) 05/15/25 05:42
Potassium 3.2 mmol/L (3.5-5.1) L 05/15/25 05:42
Chloride 110 mmol/L (98-107) H 05/15/25 05:42
Carbon Dioxide 20 mmol/L (22-30) L 05/15/25 05:42
BUN 40 mg/dl (9-20) H 05/15/25 05:42
Creatinine 3.9 mg/dL (0.7-1.3) H 05/15/25 05:42
eGFR 17.80 05/15/25 05:42
Glucose 86 mg/dl (70-99) 05/15/25 05:42
Calcium 7.8 mg/dl (8.4-10.2) L 05/15/25 05:42
Albumin 2.3 g/dl (3.5-5.0) L 05/07/25 05:59
Physical Exam
-
Vital Signs:
Vital Signs
Temp Pulse Resp BP Pulse Ox
98.5 F 86 16 121/77 98
05/15/25 08:00 05/15/25 08:00 05/15/25 08:00 05/15/25 08:00 05/15/25 08:00
Cardiovascular:: Regular rate and rhythm
Respiratory:: Bilateral: Coarse
Lung Excursion:: Normal
Abdomen:: Nontender and Soft
Bowel Sounds:: Normal
Extremity Edema:: None: Bilateral:
--- NOTE | 2025-05-15 15:59 | CM ---
Acute rehab authorization for [facility] initiated with [facility] [place]
Spoke with Pankaj Morgna at phone #[phone]
Pended case # [id number]
clinicals faxed to [phone]
await determination
[2025-05-15 16:10] VITALS: BP 131/86
--- NOTE | 2025-05-15 16:27 | W.PN.HOSP.TC ---
Today's Communication/Plan
-
Continue IV antibiotics
IV fluids as per nephrology
Follow BMP
Monitor oral intake
Offered dietary supplements and multiple occasions, although declined
Start Remeron for appetite stimulation
Assessment / Plan
Assessment / Plan
Impression:
Metastatic renal cell carcinoma.
-Status post left nephrectomy December 2024.
MSSA bacteremia secondary to spinal wound infection.
Acute kidney injury.
Acute on chronic metabolic acidosis.
Right hydronephrosis.
Acute urinary retention requiring Eldridge catheter.
Malignant pain requiring opiates but
Severe protein calorie malnutrition.
Anxiety/depression
Plan
Metastatic Renal Cell Carcinoma with Spinal Column Metastasis and subsequent Spinal Infection s/p Left L1 & B/L L2 Segmental Artery Embolization (03/30/25); T12-L2 laminectomy, Left L1/2 corpectomy, T11-L4 fusion (03/31/25); Thoracolumbar Wound
Washout with PRS closure (04/30/2025).
In review of her recent PET/CT on 02/27/2025 there is also high FDG activity/pulmonary nodule left upper lobe.
Consult oncology for further staging and treatment options
MSSA Bacteremia secondary to Spinal Infection
-Continue cefazolin 2gm q12h through Jun 10
-Will likely need chronic cefadroxil afterwards
-Follow-up schedule with ID at [place]
Continue wound care.
� Bilateral JEEVAN drain, monitor output daily. Consider removing drains if output less than 30 mL in 2 consecutive days
� Wound VAC removed on May
Acute kidney injury -unclear etiology. Creatinine remains elevated, 4.5. Nonoliguric. Creatinine plateaued at 3.9
Status post left nephrectomy for RCC.
Acute urine retention -Eldridge catheter in place.
Obstructive uropathy with right JJ stent placed on 05/05/2025
Elevated anion gap metabolic acidosis.
? If CKD
UA is skewed given Eldridge catheter trauma
Urine sodium 115
Urine eosinophils pending
Noted with mild elevation of proteinase 3 at 36. Isolated with unknown significance. Unlikely vasculitis. Patient would be a poor candidate for renal biopsy
Renal ultrasound noted, estimated bladder volume 70 cc. No ureteral jets demonstrated. Status post left nephrectomy. Right ureteral stent visualized. Mild right pelvic calyceal dilation. Echogenicity of the right kidney appears diffusely
increased relative to the liver, nonspecific finding suggesting medical renal disease.
Continue IV fluids maintenance while low oral intake. Follow BMP
Chronic normocytic anemia
Iron studies indicative of mild iron deficiency and anemia of chronic disease
Erythropoietin level of 4, low end of normal range.
Follow hemoglobin
Pain Management
-Patient previously on Morphine ER which was switched to Morphine IR when DHT was placed
-Patient had been refusing scheduled doses of narcotics
-Continue oxycodone PRN
Severe Protein Calorie Malnutrition - DHT placed at [place], has since been removed. Patient does not want it replaced.
Patient reports no swallowing issues, although with persistent nausea and vomiting and metallic taste predicting sufficient oral intake.
Persistent nausea and vomiting with minuscule oral intake possibly multifactorial in the settings of uremia as well as opioids.
Exam with no thrash in oral cavity, although initiated empirically on nystatin on 05/12.
Discussed with GI. At this point no clear indication for endoscopic evaluation.
-Allow regular diet
-Continue antiemetics
-Consult Dietary. Patient refusing protein shakes.
- Initiated on Remeron 7.5 mg at bedtime on 05/15.
Stage I coccyx pressure injury present on admission. Continue care
Anxiety / Depression
-Continue bupropion
Deconditioning
-Consult PT/OT
DVT proph: SC Heparin
Code Status: Full Code
Dispo -ideally patient is needs to go to SNF on discharge but he prefers to go home as he wants to take care of his family. He seems to have little insight into the severity of his illness and the trajectory of his recovery.
Not medically stable for discharge given ongoing renal failure, anemia, malnutrition.
Anticipated Discharge: > 48 hours
Subjective/Interval History
-
Date of Service: May 15, 2025
Objective Data
-
Labs:
Laboratory Results
05/15/25
05:42
WBC 7.9
Hgb 8.1 L
Hct 25.0 L
Plt Count 275
Sodium 136
Potassium 3.2 L
Chloride 110 H
Carbon Dioxide 20 L
BUN 40 H
Creatinine 3.9 H
Glucose 86
Calcium 7.8 L
Vital Signs:
Vital Signs
Temp Pulse Resp BP Pulse Ox
98.2 F 80 15 131/86 98
05/15/25 16:10 05/15/25 16:10 05/15/25 16:10 05/15/25 16:10 05/15/25 16:10
I&O
05/14/25 05/15/25 05/16/25
06:59 06:59 06:59
Intake Total 720 / 720 720 / 720
Output Total 2108 / 2108 1855 / 1855
Balance -1388 / -1388 -1135 / -1135
Physical Exam
-
General: Well Developed and No Apparent Distress
HEENT: Normocephalic, Atraumatic and Moist Mucous Membranes
Respiratory: Clear to Auscultation
Cardiac: Regular Rhythm and S1/S2; Negative Murmur, Rub or Gallop
GI: Soft, Nontender, Nondistended and Normal Bowel Sounds; Negative Organomegaly
Rectal: Deferred by Provider
Genito-urinary: Eldridge
Musculoskeletal: No Clubbing, No Cyanosis, No Edema and Other (Bilateral paraspinal/T-spine level JEEVAN drain. Right-sided T-spine level wound with wound VAC in place)
Skin: Negative Rash
Neuro: Awake, Alert, Oriented, AO x 3, Tremors (Mild bilateral upper extremity resting tremor) and Nonfocal/Grossly Intact
[2025-05-15 16:44] LABS: Glucose - Point of Care 89 mg/dl (70-99)
--- NOTE | 2025-05-15 17:21 | CM ---
Acute rehab authorization for [facility] initiated with [facility] [place]
Spoke with Pankaj Morgan at phone #[phone]
Pended case # [id number]
clinicals faxed to [phone]
await determination
[2025-05-15] MEDS: ZOFRAN 4 MG IV (18:24)
[2025-05-15] MEDS: REMERON 7.5 MG PO (21:06)
[2025-05-15 21:13] LABS: Glucose - Point of Care 86 mg/dl (70-99)
[2025-05-15] MEDS: MYCOSTATIN ORAL SUSPENSION PO (21:24)
[2025-05-15] MEDS: FLOMAX PO (21:24)
[2025-05-15 23:00] VITALS: BP 144/81
[2025-05-16 04:35] VITALS: BP 128/87
[2025-05-16 05:10] VITALS: BMI 20.2
[2025-05-16 07:00] VITALS: BP 141/88
[2025-05-16 08:03] LABS: Glucose - Point of Care 111 mg/dl (70-99)
[2025-05-16 08:43] LABS: Blood Urea Nitrogen 35 mg/dl (9-20); Calcium 7.9 mg/dl (8.4-10.2); Carbon Dioxide 19 mmol/L (22-30); Chloride 113 mmol/L (98-107); Estimated Creatinine Clearance 21 ml/min; Glucose 87 mg/dl (70-99); Potassium 3.1 mmol/L (3.5-5.1); Sodium 139 mmol/L (135-145); eGFR 18.96
[2025-05-16] MEDS: DESENEX/MITRAZOL/ZEASORB 1 APPLIC TOPICAL ×2 (09:29→20:02)
[2025-05-16] MEDS: NOVOLOG FLEXPEN-LOW RESISTANCE SC ×3 (09:29→17:01)
[2025-05-16] MEDS: SENOKOT PO ×2 (09:30→20:01)
[2025-05-16] MEDS: OASIS PO ×4 (09:30→22:42)
[2025-05-16] MEDS: VITAMIN B1 PO (09:30)
[2025-05-16] MEDS: THERAGRAN PO (09:30)
[2025-05-16] MEDS: WELLBUTRIN XL (24 hour extended release) PO (09:30)
[2025-05-16] MEDS: PROSCAR PO (09:30)
[2025-05-16] MEDS: VITAMIN C PO (09:30)
[2025-05-16] MEDS: ANCEF 10 IV ×2 (09:35→20:00)
[2025-05-16] MEDS: HEPARIN 5000 UNITS SC ×2 (09:35→20:00)
[2025-05-16] MEDS: NSS (PRESERVATIVE FREE) 10 ML IV (09:36)
[2025-05-16] MEDS: PROTONIX IV 40 MG IV (09:36)
[2025-05-16] MEDS: MYCOSTATIN ORAL SUSPENSION 5 ML PO ×4 (09:39→22:43)
[2025-05-16 11:31] LABS: Glucose - Point of Care 114 mg/dl (70-99)
[2025-05-16 15:00] VITALS: BP 138/85
--- NOTE | 2025-05-16 15:02 | W.PN.HOSP.TC ---
Today's Communication/Plan
-
Continue IV antibiotics
IV fluids as per nephrology
d/w nutrition about TPN
Assessment / Plan
Assessment / Plan
49M with metastatic renal cell carcinoma who transferred from [facility] to following a prolonged hospitalization for worsening malignant soft tissue in the spinal canal with severe spinal stenosis, s/p artery embolization and spinal surgery, c/b spinal
wound infection with wound dehiscence and MSSA bacteremia s/p washout with placement of wound vac and treated with prolonged coarse of IV Ancef. Since transfer he has removed his DHT and refuses replacement, however has minimal po intake and is
deconditioned.
MSSA Bacteremia secondary to Spinal Infection
- Continue cefazolin 2gm q12h through Jun 10
- Will likely need chronic cefadroxil afterwards
- Follow-up schedule with ID at [place]
- Continue wound care.
� Bilateral JEEVAN drain, monitor output daily. Consider removing drains if output less than 30 mL in 2 consecutive days
� Wound VAC removed on May 11
Metastatic Renal Cell Carcinoma
met to Spinal Column Metastasis
s/p Left L1 & B/L L2 Segmental Artery Embolization (03/30/25); T12-L2 laminectomy, Left L1/2 corpectomy, T11-L4 fusion (03/31/25); Thoracolumbar Wound Washout with PRS closure (04/30/2025).
In review of recent PET/CT on 02/27/2025 there is also high FDG activity/pulmonary nodule left upper lobe.
oncology signed off, rec 'OP follow up with [facility] oncologist recommended after discharge to discuss systemic therapy options base on resololution of infection, renal function, nutrional status, and performance status.'
Acute kidney injury
Elevated anion gap metabolic acidosis.
Status post left nephrectomy for RCC.
Obstructive uropathy with right JJ stent placed on 05/05/2025
Eldridge catheter in place.
repeat UA
Urine sodium 115
Noted with mild elevation of proteinase 3 at 36. Isolated with unknown significance. Unlikely vasculitis. Patient would be a poor candidate for renal biopsy due to solitary R kidney
Renal ultrasound -medical renal disease.
Continue IV fluids maintenance while low oral intake. Follow BMP
Hypokalenmia
replete with IV K
Chronic normocytic anemia
Iron studies indicative of mild iron deficiency and anemia of chronic disease. Per heme/onc, no role for supplementation
Erythropoietin level of 4, low end of normal range.
Follow hemoglobin, transfuse if Hgb<7
Pain Management
-Patient previously on Morphine ER which was switched to Morphine IR when DHT was placed
-Patient had been refusing scheduled doses of narcotics
-Continue oxycodone PRN
Severe Protein Calorie Malnutrition
DHT placed at [place], has since been removed. Patient does not want it replaced.
Patient reports no swallowing issues, although with persistent nausea and vomiting and metallic taste preventing sufficient oral intake.
Persistent nausea and vomiting with minuscule oral intake possibly multifactorial in the settings of uremia. Opioids stopped.
Exam with no thrush in oral cavity, although initiated empirically on nystatin on 05/12. Cont biotene, chloraseptic spray
Discussed with GI. At this point no clear indication for endoscopic evaluation.
Allow regular diet
PRN antiemetics
Consult Dietary. Patient refusing protein shakes.
Initiated on Remeron 7.5 mg at bedtime on 05/15. No improvement in oral intake yet
discussing TPN with nutrition
Stage I coccyx pressure injury present on admission. Continue care
Anxiety / Depression
-Continue bupropion
Deconditioning
-PM&R rec acute rehab once eating well or other nutrition plan in place
DVT proph: SC Heparin
Code Status: Full Code
Dispo - acute inpatient rehab
Anticipated Discharge: > 48 hours
Subjective/Interval History
-
Date of Service: May 16, 2025
Patient still nauseous with any p.o. intake, very poor p.o. intake, had tiny bit of soup last night, no breakfast. Complains of very dry mouth despite Biotene, nystatin, mouth spray. Discussed with RN
Objective Data
-
Labs:
Laboratory Results
05/16/25
07:40
Sodium 139
Potassium 3.1 L
Chloride 113 H
Carbon Dioxide 19 L
BUN 35 H
Creatinine 3.7 H
Glucose 87
Calcium 7.9 L
Vital Signs:
Vital Signs
Temp Pulse Resp BP Pulse Ox
98.2 F 76 14 141/88 99
05/16/25 07:00 05/16/25 07:00 05/16/25 07:00 05/16/25 07:00 05/16/25 07:00
I&O
05/15/25 05/16/25 05/17/25
06:59 06:59 06:59
Intake Total 720 / 720 330 / 330
Output Total 1855 / 1855 1685 / 1685
Balance -1135 / -1135 -1355 / -1355
Review of Systems
-
All other systems: Reviewed and negative
Physical Exam
-
General: No Apparent Distress and Cachectic
HEENT: Normocephalic and Atraumatic; Negative Moist Mucous Membranes or Thrush
Respiratory: Clear to Auscultation; Negative Wheezes, Rales or Rhonchi
Cardiac: Regular Rhythm and S1/S2; Negative Murmur, Rub or Gallop
GI: Soft, Nontender, Nondistended and Normal Bowel Sounds; Negative Organomegaly
Genito-urinary: Eldridge
Musculoskeletal: No Clubbing, No Cyanosis, No Edema and Other (Bilateral paraspinal/T-spine level JEEVAN drain. )
Skin: Warm and Dry; Negative Rash
Neuro: Awake, Alert, Oriented, AO x 3, Tremors (Mild bilateral upper extremity resting tremor) and Nonfocal/Grossly Intact
Psych: Calm
Data Reviewed
-
Labs: Labs Reviewed by me, Discussed with Nurse and Discussed with Patient
--- NOTE | 2025-05-16 15:12 | PTCARENOTE ---
PT with very flat withdrawn affect. pt appears depressed. pt does not want to get oob. he is aaox4 and can make his needs known. he denies any pain. He took three sips of soup yesterday and two bites the day before. pt has not had any intake this
shift. Pt appears severely cachectic, he has weak hand grasps. he has sunken in cheks, visible wasting of the temples shoulders and thighs with reduced sq fat in ribs tricepts and eyes. MD was made aware> i did ask if he can have TPN to assist with
wound healing and to his severe fraility. MD ordered nutrition consult . unclear weight loss ER weight was 150 the rest of the weights seem to fluctuate. K today 3.1 and Krider ordered. pt turned and repositioned q 2 hours. pt did say the swish
and swallow is helping a very little. he refuses all other PO medications
[2025-05-16] MEDS: KCL 270 MEQ IV (15:46)
[2025-05-16 17:00] LABS: Glucose - Point of Care 95 mg/dl (70-99)
[2025-05-16 21:47] LABS: Glucose - Point of Care 66 mg/dl (70-99)
[2025-05-16] MEDS: DEXTROSE 50% SYRINGE 12.5 GRAMS IV (21:57)
[2025-05-16 22:20] LABS: Glucose - Point of Care 111 mg/dl (70-99)
[2025-05-16] MEDS: FLOMAX PO (22:42)
[2025-05-16] MEDS: REMERON PO (22:43)
[2025-05-16 23:00] VITALS: BP 137/93
[2025-05-16 23:25] LABS: Glucose - Point of Care 94 mg/dl (70-99)
[2025-05-16] MEDS: D5/0.9% SODIUM CHLORIDE 1000 IV (23:56)
[2025-05-17 00:26] LABS: Glucose - Point of Care 86 mg/dl (70-99)
[2025-05-17 03:05] LABS: Glucose - Point of Care 87 mg/dl (70-99)
--- NOTE | 2025-05-17 03:55 | PTCARENOTE ---
Pt's ACHS result 66, asymptomatic. Dextrose 50% syringe 12.5 grams IV given. 15 minute ACHS recheck 111. 2 Hour recheck- 94. Pt started on D5/0.9% sodium chloride continuous fluids. Will continue ongoing care.
[2025-05-17 06:00] VITALS: BMI 20.1
[2025-05-17 07:29] LABS: Glucose - Point of Care 89 mg/dl (70-99)
[2025-05-17 08:09] VITALS: BP 142/85
[2025-05-17] MEDS: NOVOLOG FLEXPEN-LOW RESISTANCE SC ×3 (08:41→17:07)
[2025-05-17] MEDS: ANCEF 10 IV ×2 (08:46→21:29)
[2025-05-17] MEDS: NSS (PRESERVATIVE FREE) 10 ML IV (08:47)
[2025-05-17] MEDS: DESENEX/MITRAZOL/ZEASORB 1 APPLIC TOPICAL ×2 (08:47→21:32)
[2025-05-17] MEDS: HEPARIN 5000 UNITS SC (08:47)
[2025-05-17] MEDS: MYCOSTATIN ORAL SUSPENSION 5 ML PO ×3 (08:47→21:34)
[2025-05-17] MEDS: PROTONIX IV 40 MG IV (08:47)
[2025-05-17] MEDS: SENOKOT PO ×2 (08:48→21:33)
[2025-05-17] MEDS: THERAGRAN PO (08:48)
[2025-05-17] MEDS: OASIS PO ×4 (08:48→21:34)
[2025-05-17] MEDS: VITAMIN B1 PO (08:48)
[2025-05-17] MEDS: PROSCAR PO (08:48)
[2025-05-17] MEDS: VITAMIN C PO (08:49)
[2025-05-17] MEDS: WELLBUTRIN XL (24 hour extended release) PO (08:49)
[2025-05-17 10:32] LABS: Blood Urea Nitrogen 34 mg/dl (9-20); Calcium 8.0 mg/dl (8.4-10.2); Carbon Dioxide 16 mmol/L (22-30); Chloride 116 mmol/L (98-107); Estimated Creatinine Clearance 21 ml/min; Glucose 74 mg/dl (70-99); Potassium 3.5 mmol/L (3.5-5.1); Sodium 143 mmol/L (135-145); eGFR 18.96
[2025-05-17 10:35] LABS: Hematocrit 27.3 % (39.0-52.0); Hemoglobin 8.2 g/dL (13.0-18.0); Mean Corp Hgb Conc. 30.0 g/dL (33.0-37.0); Mean Corpuscular Volume 97.2 fL (80.0-94.0); Nucleated Red Blood Cells % 0 % (-); Platelet Count 283 10^3/uL (130-400); Red Cell Dist. Width 18.4 % (11.5-14.5)
--- NOTE | 2025-05-17 11:23 | W.PN.HOSP.TC ---
Today's Communication/Plan
-
Continue IV antibiotics
IV fluids as per nephrology
d/w nutrition about TPN
Assessment / Plan
Assessment / Plan
49M with metastatic renal cell carcinoma who transferred from [facility] to following a prolonged hospitalization for worsening malignant soft tissue in the spinal canal with severe spinal stenosis, s/p artery embolization and spinal surgery, c/b spinal
wound infection with wound dehiscence and MSSA bacteremia s/p washout with placement of wound vac and treated with prolonged coarse of IV Ancef. Since transfer he has removed his DHT and refuses replacement, however has minimal po intake and is
deconditioned.
MSSA Bacteremia secondary to Spinal Infection
- Continue cefazolin 2gm q12h through Jun 10
- Will likely need chronic cefadroxil afterwards
- Follow-up schedule with ID at [place]
- Continue wound care.
� Bilateral JEEVAN drain, monitor output daily. Consider removing drains if output less than 30 mL in 2 consecutive days
� Wound VAC removed on May 11
Metastatic Renal Cell Carcinoma
met to Spinal Column Metastasis
s/p Left L1 & B/L L2 Segmental Artery Embolization (03/30/25); T12-L2 laminectomy, Left L1/2 corpectomy, T11-L4 fusion (03/31/25); Thoracolumbar Wound Washout with PRS closure (04/30/2025).
In review of recent PET/CT on 02/27/2025 there is also high FDG activity/pulmonary nodule left upper lobe.
oncology signed off, rec 'OP follow up with [facility] oncologist recommended after discharge to discuss systemic therapy options base on resololution of infection, renal function, nutrional status, and performance status.'
Acute kidney injury
Elevated anion gap metabolic acidosis.
Status post left nephrectomy for RCC.
Obstructive uropathy with right JJ stent placed on 05/05/2025
Eldridge catheter in place.
repeat UA
Urine sodium 115
Noted with mild elevation of proteinase 3 at 36. Isolated with unknown significance. Unlikely vasculitis. Patient would be a poor candidate for renal biopsy due to solitary R kidney
Renal ultrasound -medical renal disease.
Continue IV fluids maintenance while low oral intake. Follow BMP
Hypokalenmia�resolved
repleted with IV K
Chronic normocytic anemia
Iron studies indicative of mild iron deficiency and anemia of chronic disease. Per heme/onc, no role for supplementation
Erythropoietin level of 4, low end of normal range.
Follow hemoglobin, transfuse if Hgb<7
Pain Management
-Patient previously on Morphine ER which was switched to Morphine IR when DHT was placed
-Patient had been refusing scheduled doses of narcotics
-Continue oxycodone PRN
Severe Protein Calorie Malnutrition
DHT placed at [place], has since been removed. Patient does not want it replaced.
Patient reports no swallowing issues, although with persistent nausea and vomiting and metallic taste preventing sufficient oral intake.
Persistent nausea and vomiting with minuscule oral intake possibly multifactorial in the settings of uremia. Opioids stopped.
Exam with no thrush in oral cavity, although initiated empirically on nystatin on 05/12. Cont biotene, chloraseptic spray
Discussed with GI. At this point no clear indication for endoscopic evaluation.
Allow regular diet
PRN antiemetics
Consult Dietary. Patient refusing protein shakes.
Initiated on Remeron 7.5 mg at bedtime on 05/15. No improvement in oral intake yet
discussing TPN with nutrition
Stage I coccyx pressure injury present on admission. Continue care
Anxiety / Depression
-Continue bupropion
Deconditioning
-PM&R rec acute rehab once eating well or other nutrition plan in place
DVT proph: SC Heparin
Code Status: Full Code
Dispo - acute inpatient rehab
Anticipated Discharge: > 48 hours
Subjective/Interval History
-
Date of Service: May 17, 2025
Patient did not eat yesterday, discussed with RN, has not eaten for 2 days, patient vomits every time he tries to eat something
Objective Data
-
Labs:
Laboratory Results
05/17/25
07:25
WBC 8.5
Hgb 8.2 L
Hct 27.3 L
Plt Count 283
Sodium 143
Potassium 3.5
Chloride 116 H
Carbon Dioxide 16 L
BUN 34 H
Creatinine 3.7 H
Glucose 74
Calcium 8.0 L
Vital Signs:
Vital Signs
Temp Pulse Resp BP Pulse Ox
97.7 F 81 16 142/85 100
05/17/25 08:09 05/17/25 08:09 05/17/25 08:09 05/17/25 08:09 05/17/25 08:09
I&O
05/16/25 05/17/25 05/18/25
06:59 06:59 06:59
Intake Total 330 / 330
Output Total 1685 / 1685 1100 / 1100 1080 / 1080
Balance -1355 / -1355 -1100 / -1100 -1080 / -1080
Review of Systems
-
All other systems: Reviewed and negative
Physical Exam
-
General: No Apparent Distress and Cachectic
HEENT: Normocephalic and Atraumatic; Negative Moist Mucous Membranes or Thrush
Respiratory: Clear to Auscultation; Negative Wheezes, Rales or Rhonchi
Cardiac: Regular Rhythm and S1/S2; Negative Murmur, Rub or Gallop
GI: Soft, Nontender, Nondistended and Normal Bowel Sounds; Negative Organomegaly
Genito-urinary: Eldridge
Musculoskeletal: No Clubbing, No Cyanosis, No Edema and Other (Bilateral paraspinal/T-spine level JEEVAN drain. )
Skin: Warm and Dry; Negative Rash
Neuro: Awake, Alert, Oriented, AO x 3, Tremors (Mild bilateral upper extremity resting tremor) and Nonfocal/Grossly Intact
Psych: Calm
Data Reviewed
-
Labs: Labs Reviewed by me and Discussed with Nurse
[2025-05-17 12:02] LABS: Glucose - Point of Care 87 mg/dl (70-99)
--- NOTE | 2025-05-17 13:46 | W.PN.NEPH.PH ---
Today's Communication / Plan
-
PermCath ordered for dialysis Sunday or Sunday depending on timing
Assessment/Plan
-
IMP:
POLA
Metastatic Renal Cell Carcinoma with Spinal Column Metastasis and subsequent Spinal Infection s/p Left L1 & B/L L2 Segmental Artery Embolization (03/30/25); T12-L2 laminectomy, Left L1/2 corpectomy, T11-L4 fusion (03/31/25); Thoracolumbar Wound
Washout with PRS closure (04/30/2025).
recent PET/CT on 02/27/2025 there is also high FDG activity/pulmonary nodule left upper lobe.
MSSA Bacteremia secondary to Spinal Infection
Status post left nephrectomy for RCC.
Acute urine retention
Obstructive uropathy with right JJ stent placed on 05/05/2025
Elevated anion gap metabolic acidosis.
Chronic normocytic anemia
Severe Protein Calorie Malnutrition
Anxiety / Depression
Hyperalbuminemia
Plan:
IVF D5NS continue
replete K
follow BMP
elevated PR3 36. significance of this is uncertain. Cm is not a good candidate for a renal biopsy given solitary right kidney with hydro. > Nonoliguric
Ongoing treatment for thrush improved still with significant nausea and vomiting with what he describes a metallic taste which is ongoing.
Long discussion with the patient and his sister Jelena at the bedside about dialysis and whether is poor appetite and metallic taste is from uremia. Despite his stable kidney function and urea only 34 he has no muscle mass creatinine 3.7 likely
underestimating his estimated GFR which is likely less than 18 mL/min.
They understand that if we did dialysis is not guaranteed that his symptoms will improve and with that said symptoms would not improve for a few weeks not after just a few treatments.
They agreed to give a trial of dialysis to see if symptoms improve.
IR consult placed for permacath placement.
Discussed this with the medical nurse
-
-
Date of Service: May 17, 2025
CC / HPI / ROS
-
Chief Complaint:
POLA
History of Present Illness:
POLA/Cr stalled to 3.9
acidosis stable
Hgb stable
BP stable
still with back pain
K low 2.9
Review of Systems:
no CP/SOB
nonoliguric with lovett
Nausea vomiting dry heaving persists
Labs
-
Labs:
WBC 8.5 10^3/uL (4.8-10.8) 05/17/25 07:25
RBC 2.81 10^6/uL (4.70-6.10) L 05/17/25 07:25
Hgb 8.2 g/dL (13.0-18.0) L 05/17/25 07:25
Hct 27.3 % (39.0-52.0) L 05/17/25 07:25
Plt Count 283 10^3/uL (130-400) 05/17/25 07:25
Sodium 143 mmol/L (135-145) 05/17/25 07:25
Potassium 3.5 mmol/L (3.5-5.1) 05/17/25 07:25
Chloride 116 mmol/L (98-107) H 05/17/25 07:25
Carbon Dioxide 16 mmol/L (22-30) L 05/17/25 07:25
BUN 34 mg/dl (9-20) H 05/17/25 07:25
Creatinine 3.7 mg/dL (0.7-1.3) H 05/17/25 07:25
eGFR 18.96 05/17/25 07:25
Glucose 74 mg/dl (70-99) 05/17/25 07:25
Calcium 8.0 mg/dl (8.4-10.2) L 05/17/25 07:25
Albumin 2.3 g/dl (3.5-5.0) L 05/07/25 05:59
Physical Exam
-
Vital Signs:
Vital Signs
Temp Pulse Resp BP Pulse Ox
97.7 F 81 16 142/85 100
05/17/25 08:09 05/17/25 08:09 05/17/25 08:09 05/17/25 08:09 05/17/25 08:09
Cardiovascular:: Regular rate and rhythm
Respiratory:: Bilateral: Coarse
Lung Excursion:: Normal
Abdomen:: Nontender and Soft
Bowel Sounds:: Normal
Extremity Edema:: None: Bilateral:
[2025-05-17] MEDS: MYCOSTATIN ORAL SUSPENSION PO (14:56)
[2025-05-17 15:36] LABS: Urine Character Clear (Clear)
[2025-05-17 15:55] LABS: Urine Squamous Cell 0-2 /LPF (Few)
[2025-05-17 15:57] LABS: Urine Red Blood Cell 70-80 /HPF (0-2)
[2025-05-17 16:08] VITALS: BP 134/79
[2025-05-17 16:29] LABS: Glucose - Point of Care 85 mg/dl (70-99)
[2025-05-17] MEDS: D5/0.9% SODIUM CHLORIDE 1000 IV (17:06)
[2025-05-17] MEDS: HEPARIN SC ×2 (21:29→21:37)
[2025-05-17] MEDS: ANTIFUNGAL CLEAR 1 APPLIC TOPICAL (21:32)
[2025-05-17] MEDS: FLOMAX PO (21:33)
[2025-05-17] MEDS: REMERON PO (21:35)
[2025-05-17 21:43] LABS: Glucose - Point of Care 88 mg/dl (70-99)
[2025-05-17 23:00] VITALS: BP 144/89
[2025-05-18 05:12] VITALS: BMI 19.5
[2025-05-18] MEDS: D5/0.9% SODIUM CHLORIDE 1000 IV (06:12)
[2025-05-18 07:30] VITALS: BP 143/91
[2025-05-18 07:54] LABS: Glucose - Point of Care 104 mg/dl (70-99)
[2025-05-18] MEDS: NOVOLOG FLEXPEN-LOW RESISTANCE SC ×3 (07:55→18:26)
[2025-05-18 07:58] LABS: Hematocrit 25.5 % (39.0-52.0); Hemoglobin 8.0 g/dL (13.0-18.0); Mean Corp Hgb Conc. 31.4 g/dL (33.0-37.0); Mean Corpuscular Volume 96.2 fL (80.0-94.0); Nucleated Red Blood Cells % 0 % (-); Platelet Count 256 10^3/uL (130-400); Red Cell Dist. Width 18.6 % (11.5-14.5)
[2025-05-18 08:34] LABS: Blood Urea Nitrogen 31 mg/dl (9-20); Calcium 7.9 mg/dl (8.4-10.2); Carbon Dioxide 19 mmol/L (22-30); Chloride 118 mmol/L (98-107); Estimated Creatinine Clearance 19 ml/min; Glucose 85 mg/dl (70-99); Sodium 145 mmol/L (135-145); eGFR 18.36
[2025-05-18] MEDS: ANCEF 10 IV ×2 (08:36→21:52)
[2025-05-18] MEDS: HEPARIN SC ×2 (08:43→21:43)
[2025-05-18] MEDS: OASIS PO ×4 (08:43→21:43)
[2025-05-18] MEDS: PROSCAR PO (08:43)
[2025-05-18] MEDS: SENOKOT PO ×2 (08:43→21:43)
[2025-05-18] MEDS: VITAMIN B1 PO (08:44)
[2025-05-18] MEDS: THERAGRAN PO (08:44)
[2025-05-18] MEDS: WELLBUTRIN XL (24 hour extended release) PO (08:44)
[2025-05-18] MEDS: VITAMIN C PO (08:44)
[2025-05-18 08:47] LABS: Potassium 3.3 mmol/L (3.5-5.1)
[2025-05-18 08:50] VITALS: BP 144/89; BP_SYST 77
--- NOTE | 2025-05-18 08:51 | CM ---
Addendum entered by Betsy Raya 05/18/25 15:56:
call received from Tawnya JONES from [facility] who stated that the patient plan does not have inpatient benefits, no snf benefits or home health benefits, limited plan she stated. Patient does have medicaid. MINOR called Tabatha butt
from [facility] to check benefits and if they take Medicaid. She stated does take some medicaid plans, but will check with her admissions dept.
Patient also now had a tunneled CVC placed, HD initiated today, HD again tomorrow per nephrology note. tt Dr. Holloway ?[employer]
Original Note:
[facility]hab [facility] for [facility] initiated on 05/15 with Ricardo Alberto ID
MINOR called and spoke with Thu at phone #[phone]
Thu states the case is still pending, we will receive fax & gave her my call back #-will escalate
Pended case # [id number]
Left message with Tabatha at [facility]
PLAN: [facility] re[facility], once auth obtained
[2025-05-18] MEDS: ZOFRAN 4 MG IV ×2 (08:52→16:28)
[2025-05-18 10:55] VITALS: BP 152/88; BP_SYST 72
[2025-05-18 11:10] VITALS: BP 143/87; BP_SYST 74
[2025-05-18 12:12] LABS: Glucose - Point of Care 84 mg/dl (70-99)
[2025-05-18] MEDS: MYCOSTATIN ORAL SUSPENSION PO ×4 (12:39→21:48)
[2025-05-18] MEDS: MANNITOL 25% 12.5 GRAMS IV ×2 (12:45→13:45)
[2025-05-18] MEDS: FLEXBUMIN 25% FOR HEMODIALYSIS 12.5 GRAMS IV ×2 (12:57→14:00)
[2025-05-18] MEDS: RETACRIT 10000 UNITS IV (13:45)
[2025-05-18] MEDS: PROTONIX IV 40 MG IV (14:01)
[2025-05-18] MEDS: NSS (PRESERVATIVE FREE) 10 ML IV (14:02)
[2025-05-18] MEDS: ANTIFUNGAL CLEAR 1 APPLIC TOPICAL ×2 (14:04→21:52)
[2025-05-18] MEDS: DESENEX/MITRAZOL/ZEASORB 1 APPLIC TOPICAL ×2 (14:04→21:51)
--- NOTE | 2025-05-18 14:15 | W.PN.HOSP.TC ---
Today's Communication/Plan
-
Being initiated on HD
Monitor for symptom improvement
Assessment / Plan
Assessment / Plan
49M with metastatic renal cell carcinoma who transferred from [facility] to following a prolonged hospitalization for worsening malignant soft tissue in the spinal canal with severe spinal stenosis, s/p artery embolization and spinal surgery, c/b spinal
wound infection with wound dehiscence and MSSA bacteremia s/p washout with placement of wound vac and treated with prolonged coarse of IV Ancef. Since transfer he has removed his DHT and refuses replacement, however has minimal po intake and is
deconditioned.
MSSA Bacteremia secondary to Spinal Infection
- Continue cefazolin 2gm q12h through Jun 10
- Will likely need chronic cefadroxil afterwards
- Follow-up schedule with ID at [place]
- Continue wound care.
� Bilateral JEEVAN drain, monitor output daily. Consider removing drains if output less than 30 mL in 2 consecutive days
� Wound VAC removed on May 11
Metastatic Renal Cell Carcinoma
met to Spinal Column Metastasis
s/p Left L1 & B/L L2 Segmental Artery Embolization (03/30/25); T12-L2 laminectomy, Left L1/2 corpectomy, T11-L4 fusion (03/31/25); Thoracolumbar Wound Washout with PRS closure (04/30/2025).
In review of recent PET/CT on 02/27/2025 there is also high FDG activity/pulmonary nodule left upper lobe.
oncology signed off, rec 'OP follow up with [facility] oncologist recommended after discharge to discuss systemic therapy options base on resololution of infection, renal function, nutrional status, and performance status.'
Acute kidney injury
Elevated anion gap metabolic acidosis.
Status post left nephrectomy for RCC.
Obstructive uropathy with right JJ stent placed on 05/05/2025
Eldridge catheter in place.
repeat UA
Urine sodium 115
Noted with mild elevation of proteinase 3 at 36. Isolated with unknown significance. Unlikely vasculitis. Patient would be a poor candidate for renal biopsy due to solitary R kidney
Renal ultrasound -medical renal disease.
Continue IV fluids maintenance while low oral intake. Follow BMP
Hypokalenmia�resolved
repleted with IV K
Chronic normocytic anemia
Iron studies indicative of mild iron deficiency and anemia of chronic disease. Per heme/onc, no role for supplementation
Erythropoietin level of 4, low end of normal range.
Follow hemoglobin, transfuse if Hgb<7
Pain Management
-Patient previously on Morphine ER which was switched to Morphine IR when DHT was placed
-Patient had been refusing scheduled doses of narcotics
-Continue oxycodone PRN
Severe Protein Calorie Malnutrition
DHT placed at [place], has since been removed. Patient does not want it replaced.
Patient reports no swallowing issues, although with persistent nausea and vomiting and metallic taste preventing sufficient oral intake.
Persistent nausea and vomiting with minuscule oral intake possibly multifactorial in the settings of uremia. Opioids stopped.
Exam with no thrush in oral cavity, although initiated empirically on nystatin on 05/12. Cont biotene, chloraseptic spray
Discussed with GI. At this point no clear indication for endoscopic evaluation.
Allow regular diet
PRN antiemetics
Consult Dietary. Patient refusing protein shakes.
Initiated on Remeron 7.5 mg at bedtime on 05/15. No improvement in oral intake yet
discussing TPN with nutrition
Stage I coccyx pressure injury present on admission. Continue care
Anxiety / Depression
-Continue bupropion
Deconditioning
-PM&R rec acute rehab once eating well or other nutrition plan in place
DVT proph: [place] Heparin
Code Status: Full Code
Dispo - acute inpatient rehab
Anticipated Discharge: > 48 hours
Subjective/Interval History
-
Date of Service: May 18, 2025
Objective Data
-
Labs:
Laboratory Results
05/18/25
07:06
WBC 7.8
Hgb 8.0 L
Hct 25.5 L
Plt Count 256
Sodium 145
Potassium 3.3 L
Chloride 118 H
Carbon Dioxide 19 L
BUN 31 H
Creatinine 3.8 H
Glucose 85
Calcium 7.9 L
Vital Signs:
Vital Signs
Temp Pulse Resp BP Pulse Ox
98.6 F 74 16 143/87 100
05/18/25 10:55 05/18/25 11:10 05/18/25 11:10 05/18/25 11:10 05/18/25 11:10
I&O
05/17/25 05/18/25 05/19/25
06:59 06:59 06:59
Output Total 1100 / 1100 2140 / 2140
Balance -1100 / -1100 -2140 / -2140
Physical Exam
-
General: No Apparent Distress and Cachectic
HEENT: Normocephalic and Atraumatic; Negative Moist Mucous Membranes or Thrush
Respiratory: Clear to Auscultation; Negative Wheezes, Rales or Rhonchi
Cardiac: Regular Rhythm and S1/S2; Negative Murmur, Rub or Gallop
GI: Soft, Nontender, Nondistended and Normal Bowel Sounds; Negative Organomegaly
Genito-urinary: Eldridge
Musculoskeletal: No Clubbing, No Cyanosis, No Edema and Other (Bilateral paraspinal/T-spine level JEEVAN drain. )
Skin: Warm and Dry; Negative Rash
Neuro: Awake, Alert, Oriented, AO x 3, Tremors (Mild bilateral upper extremity resting tremor) and Nonfocal/Grossly Intact
Psych: Calm
--- NOTE | 2025-05-18 14:45 | W.PN.NEPH.HD ---
Assessment
-
pt seen during HD
vitals stable with no UF
non oliguric
nausea slightly better but poor intake
HD again tomorrow
tunneled CVC functions fine
Progress Note - Hemodialysis
-
Date of Service: May 18, 2025
Duration: 2 hours
Potassium Bath: 4
Calcium Bath: 2.5
Opti-Dialyzer: 160
Ultrafiltration: Other (0)
Blood Flow: 250
Dialysate Flow: 600
Heparin: no
EPO: [id number]
[2025-05-18 16:00] VITALS: BP 143/90
[2025-05-18 17:59] LABS: Glucose - Point of Care 71 mg/dl (70-99)
[2025-05-18 18:41] LABS: Hepatitis B Surface Antigen Negative (Negative)
[2025-05-18 18:59] LABS: Hepatitis C Antibody Negative (Negative)
[2025-05-18] MEDS: REMERON PO (21:43)
[2025-05-18] MEDS: FLOMAX PO (21:43)
[2025-05-18 21:50] LABS: Glucose - Point of Care 77 mg/dl (70-99)
[2025-05-18 23:22] VITALS: BP 154/91
[2025-05-19 05:53] VITALS: BMI 19.7
[2025-05-19 06:39] LABS: Hematocrit 24.4 % (39.0-52.0); Hemoglobin 7.9 g/dL (13.0-18.0); Mean Corp Hgb Conc. 32.4 g/dL (33.0-37.0); Mean Corpuscular Volume 90.7 fL (80.0-94.0); Nucleated Red Blood Cells % 0 % (-); Platelet Count 211 10^3/uL (130-400); Red Cell Dist. Width 18.4 % (11.5-14.5)
[2025-05-19 07:01] LABS: Blood Urea Nitrogen 19 mg/dl (9-20); Calcium 8.1 mg/dl (8.4-10.2); Carbon Dioxide 22 mmol/L (22-30); Chloride 108 mmol/L (98-107); Estimated Creatinine Clearance 28 ml/min; Glucose 64 mg/dl (70-99); Potassium 3.3 mmol/L (3.5-5.1); Sodium 140 mmol/L (135-145); eGFR 27.67
[2025-05-19 07:30] VITALS: BP 144/90
[2025-05-19] MEDS: RETACRIT 8000 UNITS IV (08:33)
[2025-05-19] MEDS: WELLBUTRIN XL (24 hour extended release) PO (08:50)
[2025-05-19] MEDS: PROSCAR PO (08:51)
[2025-05-19] MEDS: VITAMIN C PO (08:51)
[2025-05-19] MEDS: OASIS PO ×4 (08:51→21:07)
[2025-05-19] MEDS: THERAGRAN PO (08:51)
[2025-05-19] MEDS: SENOKOT PO ×2 (08:51→21:07)
[2025-05-19] MEDS: VITAMIN B1 PO (08:51)
[2025-05-19] MEDS: MYCOSTATIN ORAL SUSPENSION PO ×4 (08:51→21:09)
[2025-05-19] MEDS: HEPARIN SC ×2 (08:52→21:08)
[2025-05-19] MEDS: PROTONIX IV 40 MG IV (09:01)
[2025-05-19] MEDS: NSS (PRESERVATIVE FREE) 10 ML IV (09:01)
[2025-05-19] MEDS: ANTIFUNGAL CLEAR 1 APPLIC TOPICAL ×2 (09:03→21:14)
[2025-05-19] MEDS: DESENEX/MITRAZOL/ZEASORB 1 APPLIC TOPICAL ×2 (09:03→21:13)
--- NOTE | 2025-05-19 09:30 | CM ---
Miriam called from [facility]; patient has coverage for acute rehab benefits per her finance office but [facility] does not accept TPN. Patient would need [place] location due to HD. CM sent tt to physician requesting update for patient
medical plan as Don has concerns/requesting clarification that patient is medically ready for transfer. CM will continue to follow for discharge planning needs.
Plan; Acute rehab when medically appropriate.
[2025-05-19 09:58] LABS: Glucose - Point of Care 72 mg/dl (70-99)
[2025-05-19] MEDS: NOVOLOG FLEXPEN-LOW RESISTANCE SC ×3 (09:58→19:17)
--- NOTE | 2025-05-19 10:31 | W.PN.NEPH.HD ---
Assessment
-
pt seen during HD
vitals stable
no UF needed non oliguric with lovett
still poor appetite
HD tomorrow
CVC functions fine
Progress Note - Hemodialysis
-
Date of Service: May 19, 2025
Duration: 45 minutes and 2 hours
Potassium Bath: 4
Calcium Bath: 2.5
Opti-Dialyzer: 160
Ultrafiltration: Other (0)
Blood Flow: 300
Dialysate Flow: 600
Heparin: no
EPO: 8000
[2025-05-19] MEDS: ANCEF 10 IV ×2 (11:04→21:16)
[2025-05-19] MEDS: ZOFRAN 4 MG IV (11:04)
[2025-05-19 11:27] LABS: Magnesium 1.7 mg/dl (1.6-2.3); Triglycerides 270 mg/dl (10-149)
--- NOTE | 2025-05-19 13:55 | W.PN.HOSP.TC ---
Today's Communication/Plan
-
Patient has been initiated on hemodialysis on 05/18.
He remains minuscule oral intake in the meantime.
Monitor closely for possible improvement of symptoms including nausea vomiting and metallic taste that could be a part of the uremia.
If no reasonable improvement in oral intake in another 24 to 48 hours I would consider option of a PEG tube placement to improve nutrition and give a chance for rehab and systemic treatment.
Patient has been encouraged to take Remeron, nutritional supplements.
Discussed with nursing, case management, nutrition
Assessment / Plan
Assessment / Plan
49M with metastatic renal cell carcinoma who transferred from [facility] to following a prolonged hospitalization for worsening malignant soft tissue in the spinal canal with severe spinal stenosis, s/p artery embolization and spinal surgery, c/b spinal
wound infection with wound dehiscence and MSSA bacteremia s/p washout with placement of wound vac and treated with prolonged coarse of IV Ancef. Since transfer he has removed his DHT and refuses replacement, however has minimal po intake and is
deconditioned.
MSSA Bacteremia secondary to Spinal Infection
- Continue cefazolin 2gm q12h through Jun 10
- Will likely need chronic cefadroxil afterwards
- Follow-up schedule with ID at [facility]
- Continue wound care.
� Bilateral JEEVAN drain, monitor output daily. Consider removing drains if output less than 30 mL in 2 consecutive days
� Wound VAC removed on May 11
Metastatic Renal Cell Carcinoma
met to Spinal Column Metastasis
s/p Left L1 & B/L L2 Segmental Artery Embolization (03/30/25); T12-L2 laminectomy, Left L1/2 corpectomy, T11-L4 fusion (03/31/25); Thoracolumbar Wound Washout with PRS closure (04/30/2025).
In review of recent PET/CT on 02/27/2025 there is also high FDG activity/pulmonary nodule left upper lobe.
oncology signed off, rec 'OP follow up with [facility] oncologist recommended after discharge to discuss systemic therapy options base on resololution of infection, renal function, nutrional status, and performance status.'
Acute kidney injury
Elevated anion gap metabolic acidosis.
Status post left nephrectomy for RCC.
Obstructive uropathy with right JJ stent placed on 05/05/[address]25
Eldridge catheter in place.
repeat UA
Urine sodium 115
Noted with mild elevation of proteinase 3 at 36. Isolated with unknown significance. Unlikely vasculitis. Patient would be a poor candidate for renal biopsy due to solitary R kidney
Renal ultrasound -medical renal disease.
Continue IV fluids maintenance while low oral intake. Follow BMP
Hypokalenmia�resolved
repleted with IV K
Chronic normocytic anemia
Iron studies indicative of mild iron deficiency and anemia of chronic disease. Per heme/onc, no role for supplementation
Erythropoietin level of 4, low end of normal range.
Follow hemoglobin, transfuse if Hgb<7
Pain Management
-Patient previously on Morphine ER which was switched to Morphine IR when DHT was placed
-Patient had been refusing scheduled doses of narcotics
-Continue oxycodone PRN
Severe Protein Calorie Malnutrition
DHT placed at [facility], has since been removed. Patient does not want it replaced.
Patient reports no swallowing issues, although with persistent nausea and vomiting and metallic taste preventing sufficient oral intake.
Persistent nausea and vomiting with minuscule oral intake possibly multifactorial in the settings of uremia. Opioids stopped.
Exam with no thrush in oral cavity, although initiated empirically on nystatin on 05/12. Cont biotene, chloraseptic spray
Discussed with GI. At this point no clear indication for endoscopic evaluation.
Allow regular diet
PRN antiemetics
Consult Dietary. Patient refusing protein shakes.
Initiated on Remeron 7.5 mg at bedtime on 05/15. No improvement in oral intake yet
discussing TPN with nutrition
Stage I coccyx pressure injury present on admission. Continue care
Anxiety / Depression
-Continue bupropion
Deconditioning
-PM&R rec acute rehab once eating well or other nutrition plan in place
DVT proph: SC Heparin
Code Status: Full Code
Dispo - acute inpatient rehab
Anticipated Discharge: > 48 hours
Subjective/Interval History
-
Date of Service: May 19, 2025
Objective Data
-
Labs:
Laboratory Results
05/19/25
06:07
WBC 8.2
Hgb 7.9 L
Hct 24.4 L
Plt Count 211
Sodium 140
Potassium 3.3 L
Chloride 108 H
Carbon Dioxide 22
BUN 19
Creatinine 2.7 H
Glucose 64 L
Calcium 8.1 L
Vital Signs:
Vital Signs
Temp Pulse Resp BP Pulse Ox
98.0 F 97 16 144/90 100
05/19/25 07:30 05/19/25 07:30 05/19/25 07:30 05/19/25 07:30 05/19/25 07:30
I&O
05/18/25 05/19/25 05/20/25
06:59 06:59 06:59
Intake Total 480 / 480 480 / 480
Output Total 2140 / 2140 1175 / 1175 625 / 625
Balance -2140 / -2140 -695 / -695 -145 / -145
Physical Exam
-
General: No Apparent Distress and Cachectic
HEENT: Normocephalic and Atraumatic; Negative Moist Mucous Membranes or Thrush
Respiratory: Clear to Auscultation; Negative Wheezes, Rales or Rhonchi
Cardiac: Regular Rhythm and S1/S2; Negative Murmur, Rub or Gallop
GI: Soft, Nontender, Nondistended and Normal Bowel Sounds; Negative Organomegaly
Genito-urinary: Eldridge
Musculoskeletal: No Clubbing, No Cyanosis, No Edema and Other (Bilateral paraspinal/T-spine level JEEVAN drain. )
Skin: Warm and Dry; Negative Rash
Neuro: Awake, Alert, Oriented, AO x 3, Tremors (Mild bilateral upper extremity resting tremor) and Nonfocal/Grossly Intact
Psych: Calm
--- NOTE | 2025-05-19 14:00 | PN.CDI ---
Addendum entered and electronically signed by Chas Michel MD 05/21/25 10:39:
Documentation is complete
Original Note:
CDI
- -
CDI:
Physician Documentation Request
Admit Date: 05/06/25 17:42
Dear Doctor Anand,
Please review the following and provide your response in the progress notes.
Clinical Indicators:
The diagnosis of Mild Spinal Cord Compressionand Leukoaraiosis was included in the signed MRI report.
05/14 Brain MRI
#...The cerebellar tonsils extend inferiorly into the foramen magnum
#...(right greater than left) suggesting low-lying cerebellar tonsils or
#...a mild Chiari I malformation.
#...mild amount of hyperintense FLAIR signal intensity white matter disease in the
#...parietal lobes suggesting mild white matter leukoaraiosis.
#IMPRESSION:
#...1. No MRI evidence for intracranial metastatic disease.
#...2. 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
#...3. Low-lying cerebellar tonsils.
#...4. Moderate discogenic degenerative disease at C4/C5 and C5/C6 with
#...small disc-osteophyte complexes causing mild spinal cord compression.
Please indicate in your progress notes if you are in agreement that the above diagnosis(es) is valid for this patient:
Spinal Cord Compression and/or Leukoaraiosis is a valid diagnosis (Please include it in your progress notes)
Spinal Cord Compression and/or Leukoaraiosis is not a valid diagnosis for this patient
Spinal Cord Compression and/or Leukoaraiosis is not yet confirmed but remains a suspected condition
Other(please specify)
Use of terms such as suspected, likely, concern for, or probable are acceptable for a diagnosis that is being evaluated, monitored or treated as if it exists and can be coded in the inpatient setting, when documented at the time of discharge.
Thank you,
Kait Gonzalez RN BSN CCDS
CDI Specialist
Please contact via tiger text
Please use your independent medical judgment in providing your response.
[2025-05-19 16:00] VITALS: BP 139/96
[2025-05-19 17:12] LABS: Glucose - Point of Care 89 mg/dl (70-99)
--- NOTE | 2025-05-19 19:37 | PTCARENOTE ---
patient medicated with PRN Zofran and vomited x1 moderate amount of green emesis in basin after following trying to eat some fruit cup and once prior. continues metallic taste and reports gags when putting food or medications in mouth.continues
with poor intake and Dr. Michel wants to evaluate in next 24-48hours to see if patient's status improves with hemodialysis treatments, if not will evaluate for peg tube. turns with assist x1, vss, will continue to monitor.
[2025-05-19 21:06] LABS: Glucose - Point of Care 79 mg/dl (70-99)
[2025-05-19] MEDS: FLOMAX PO (21:07)
[2025-05-19] MEDS: REMERON PO (21:07)
[2025-05-19 23:00] VITALS: BP 140/94
[2025-05-20 06:00] VITALS: BMI 19.6
[2025-05-20 08:26] VITALS: BP 134/91
[2025-05-20 08:40] LABS: Glucose - Point of Care 88 mg/dl (70-99)
[2025-05-20] MEDS: NOVOLOG FLEXPEN-LOW RESISTANCE SC ×3 (09:04→17:37)
--- NOTE | 2025-05-20 09:48 | PTCARENOTE ---
Confirmed with pharmacist Sharon over the phone that morning ancef will need to be given after noon HD session..
[2025-05-20] MEDS: HEPARIN SC ×2 (09:49→20:43)
[2025-05-20] MEDS: MYCOSTATIN ORAL SUSPENSION PO ×3 (09:49→23:14)
[2025-05-20] MEDS: NSS (PRESERVATIVE FREE) IV (09:49)
[2025-05-20] MEDS: SENOKOT PO ×2 (09:50→20:44)
[2025-05-20] MEDS: OASIS PO ×3 (09:50→23:14)
[2025-05-20] MEDS: PROTONIX IV IV (09:50)
[2025-05-20] MEDS: PROSCAR PO (09:50)
[2025-05-20] MEDS: THERAGRAN PO (09:51)
[2025-05-20] MEDS: VITAMIN B1 PO (09:51)
[2025-05-20] MEDS: WELLBUTRIN XL (24 hour extended release) PO (09:51)
[2025-05-20] MEDS: VITAMIN C PO (09:51)
[2025-05-20] MEDS: ANCEF IV (09:51)
[2025-05-20 10:09] LABS: Hematocrit 25.1 % (39.0-52.0); Hemoglobin 7.7 g/dL (13.0-18.0); Mean Corp Hgb Conc. 30.7 g/dL (33.0-37.0); Mean Corpuscular Volume 96.5 fL (80.0-94.0); Nucleated Red Blood Cells % 0 % (-); Platelet Count 176 10^3/uL (130-400); Red Cell Dist. Width 18.7 % (11.5-14.5)
[2025-05-20 10:15] VITALS: BP 138/87; PULSE 93; O2SAT 100
--- NOTE | 2025-05-20 10:39 | PTCARENOTE ---
Relayed to hospitalist MD over tiger text that patient is refusing am medication administration for second day in a row. Pt is pleasant, oriented, denies pain, nausea, vomiting. He is sitting on side of bed, flat affect. WOCN at bedside now to
assess spinal wounds
[2025-05-20 10:42] LABS: Blood Urea Nitrogen 13 mg/dl (9-20); Calcium 8.4 mg/dl (8.4-10.2); Carbon Dioxide 25 mmol/L (22-30); Chloride 104 mmol/L (98-107); Estimated Creatinine Clearance 32 ml/min; Glucose 71 mg/dl (70-99); Potassium 3.4 mmol/L (3.5-5.1); Sodium 137 mmol/L (135-145); eGFR 33.54
[2025-05-20 10:49] LABS: Glucose - Point of Care 71 mg/dl (70-99)
[2025-05-20 10:57] VITALS: BP 138/87; PULSE 95; O2SAT 99
--- NOTE | 2025-05-20 11:18 | WOUNDNOTE ---
[facility] RN note: Patient sitting on the side of the bed. During back incisional dressing change, patient started to fall backward with hands shaking and this fiction and nonfiction prose writer held onto his shoulders and RN Amber assisted lifting his legs to position patient
supine in bed. Amber called for a rapid response and Dr. Michel and team evaluated patient. Patient stable and when response team left, finished patient's dressing changed. Spine incision with pinpoint old ss drainage on dressing, sutures
intact. Xeroform applied to where drainage had been and covered incision with Primapore bordered gauze incisional dressing. JEEVAN dressings intact. Sacrum blanchable red. Sacral silicone border foam dressing changed. Skin on heels intact. Patient
declined being turned. He can turn self in bed. He has an air chair cushion. Mentioned to Dr. Michel that patient has appointment with his [facility] surgeon on 05/25. Patient stated he ate some dinner last night but couldn't keep it down. Patient at
high risk for pressure injury despite preventative measures in place d/t overall medical condition. Will follow as needed.
--- NOTE | 2025-05-20 11:32 | PTCARENOTE ---
Patient was sitting on side of bed and felt lightheaded, RN and WOCN helped patient lay down in bed. Vitals, ekg, and blood glucose were all within range. Dr. Michel at bedside right after episode. WOCN was changing his spine dressing when the pt
experienced the lightheadedness, MD saying may have been vasovagal.
[2025-05-20 11:35] VITALS: BP 121/74
[2025-05-20] MEDS: MYCOSTATIN ORAL SUSPENSION 5 ML PO (13:42)
[2025-05-20] MEDS: OASIS 2 SPRAY PO (13:43)
[2025-05-20] MEDS: DESENEX/MITRAZOL/ZEASORB 1 APPLIC TOPICAL ×2 (13:43→20:45)
[2025-05-20] MEDS: ANTIFUNGAL CLEAR 1 APPLIC TOPICAL ×2 (13:43→20:46)
[2025-05-20] MEDS: RETACRIT 10000 UNITS IV (13:45)
--- NOTE | 2025-05-20 14:41 | W.PN.HOSP.TC ---
Today's Communication/Plan
-
Vasovagal episode/presyncope on 05/20.
No focal findings on neurologic examination. Slight mild hypoglycemia with blood glucose of 74.
Monitor closely for hypotension.
Prolonged QTc
Stop Remeron and Zofran
Check electrolytes with HD
Replete potassium
Avoid QT prolonging medications
Assessment / Plan
Assessment / Plan
49M with metastatic renal cell carcinoma who transferred from [facility] to following a prolonged hospitalization for worsening malignant soft tissue in the spinal canal with severe spinal stenosis, s/p artery embolization and spinal surgery, c/b spinal
wound infection with wound dehiscence and MSSA bacteremia s/p washout with placement of wound vac and treated with prolonged coarse of IV Ancef. Since transfer he has removed his DHT and refuses replacement, however has minimal po intake and is
deconditioned.
MSSA Bacteremia secondary to Spinal Infection
- Continue cefazolin 2gm q12h through Jun 10
- Will likely need chronic cefadroxil afterwards
- Follow-up schedule with ID at [facility]
- Continue wound care.
� Bilateral JEEVAN drain, monitor output daily. Consider removing drains if output less than 30 mL in 2 consecutive days
� Wound VAC removed on May 11
Metastatic Renal Cell Carcinoma
met to Spinal Column Metastasis
s/p Left L1 & B/L L2 Segmental Artery Embolization (03/30/25); T12-L2 laminectomy, Left L1/2 corpectomy, T11-L4 fusion (03/31/25); Thoracolumbar Wound Washout with PRS closure (04/30/2025).
In review of recent PET/CT on 02/27/2025 there is also high FDG activity/pulmonary nodule left upper lobe.
oncology signed off, rec 'OP follow up with [facility] oncologist recommended after discharge to discuss systemic therapy options base on resololution of infection, renal function, nutrional status, and performance status.'
Acute kidney injury
Elevated anion gap metabolic acidosis.
Status post left nephrectomy for RCC.
Obstructive uropathy with right JJ stent placed on 05/05/[address]25
Eld[address] catheter in place.
repeat UA
Urine sodium 115
Noted with mild elevation of proteinase 3 at 36. Isolated with unknown significance. Unlikely vasculitis. Patient would be a poor candidate for renal biopsy due to solitary R kidney
Renal ultrasound -medical renal disease.
Continue IV fluids maintenance while low oral intake. Follow BMP
Hypokalenmia�resolved
repleted with IV K
Chronic normocytic anemia
Iron studies indicative of mild iron deficiency and anemia of chronic disease. Per heme/onc, no role for supplementation
Erythropoietin level of 4, low end of normal range.
Follow hemoglobin, transfuse if Hgb<7
Pain Management
-Patient previously on Morphine ER which was switched to Morphine IR when DHT was placed
-Patient had been refusing scheduled doses of narcotics
-Continue oxycodone PRN
Severe Protein Calorie Malnutrition
DHT placed at [facility], has since been removed. Patient does not want it replaced.
Patient reports no swallowing issues, although with persistent nausea and vomiting and metallic taste preventing sufficient oral intake.
Persistent nausea and vomiting with minuscule oral intake possibly multifactorial in the settings of uremia. Opioids stopped.
Exam with no thrush in oral cavity, although initiated empirically on nystatin on 05/12. Cont biotene, chloraseptic spray
Discussed with GI. At this point no clear indication for endoscopic evaluation.
Allow regular diet
PRN antiemetics
Consult Dietary. Patient refusing protein shakes.
Initiated on Remeron 7.5 mg at bedtime on 05/15. No improvement in oral intake yet Remeron discontinued on 05/20 given prolonged QT
discussing TPN with nutrition
Vasovagal episode/presyncope on 05/20.
No focal findings on neurologic examination. Slight mild hypoglycemia with blood glucose of 74.
Monitor closely for hypotension.
Prolonged QTc
Stop Remeron and Zofran
Check electrolytes with HD
Replete potassium
Avoid QT prolonging medications
Stage I coccyx pressure injury present on admission. Continue care
Anxiety / Depression
-Continue bupropion
Deconditioning
-PM&R rec acute rehab once eating well or other nutrition plan in place
DVT proph: SC Heparin
Code Status: Full Code
Dispo - acute inpatient rehab
Anticipated Discharge: > 48 hours
Subjective/Interval History
-
Date of Service: May 20, 2025
Objective Data
-
Labs:
Laboratory Results
05/20/25
09:37
WBC 5.0
Hgb 7.7 L
Hct 25.1 L
Plt Count 176
Sodium 137
Potassium 3.4 L
Chloride 104
Carbon Dioxide 25
BUN 13
Creatinine 2.3 H
Glucose 71
Calcium 8.4
Vital Signs:
Vital Signs
Temp Pulse Resp BP Pulse Ox
98.9 F 103 18 121/74 97
05/20/25 11:35 05/20/25 11:35 05/20/25 11:35 05/20/25 11:35 05/20/25 11:35
I&O
05/19/25 05/20/25 05/21/25
06:59 06:59 06:59
Intake Total 480 / 480 960 / 960 240 / 240
Output Total 1175 / 1175 1440 / 1440
Balance -695 / -695 -480 / -480 240 / 240
Physical Exam
-
General: No Apparent Distress and Cachectic
HEENT: Normocephalic and Atraumatic; Negative Moist Mucous Membranes or Thrush
Respiratory: Clear to Auscultation; Negative Wheezes, Rales or Rhonchi
Cardiac: Regular Rhythm and S1/S2; Negative Murmur, Rub or Gallop
GI: Soft, Nontender, Nondistended and Normal Bowel Sounds; Negative Organomegaly
Genito-urinary: Eldridge
Musculoskeletal: No Clubbing, No Cyanosis, No Edema and Other (Bilateral paraspinal/T-spine level JEEVAN drain. )
Skin: Warm and Dry; Negative Rash
Neuro: Awake, Alert, Oriented, AO x 3, Tremors (Mild bilateral upper extremity resting tremor) and Nonfocal/Grossly Intact
Psych: Calm
--- NOTE | 2025-05-20 15:55 | W.PN.NEPH.HD ---
Assessment
-
Seen on dialysis tolerating his third treatment with some improvement in his symptoms seems to be significant. He is eating better with little to no nausea or vomiting
Progress Note - Hemodialysis
-
Date of Service: May 20, 2025
Duration: 45 minutes and 2 hours
Potassium Bath: 4
Calcium Bath: 2.5
Opti-Dialyzer: 160
Ultrafiltration: Other (0)
Blood Flow: 300
Dialysate Flow: 600
Heparin: no
EPO: 8000
[2025-05-20 16:00] VITALS: BP 134/90
[2025-05-20 17:38] LABS: Glucose - Point of Care 70 mg/dl (70-99)
[2025-05-20] MEDS: ANCEF 10 IV (20:42)
[2025-05-20 20:57] LABS: Glucose - Point of Care 79 mg/dl (70-99)
[2025-05-20 23:00] VITALS: BP 134/82
[2025-05-20] MEDS: FLOMAX PO (23:14)
[2025-05-21 05:39] VITALS: BMI 19.0
[2025-05-21 06:20] LABS: Hematocrit 23.5 % (39.0-52.0); Hemoglobin 7.3 g/dL (13.0-18.0); Mean Corp Hgb Conc. 31.1 g/dL (33.0-37.0); Mean Corpuscular Volume 94.8 fL (80.0-94.0); Nucleated Red Blood Cells % 0 % (-); Platelet Count 149 10^3/uL (130-400); Red Cell Dist. Width 18.3 % (11.5-14.5)
[2025-05-21 06:41] LABS: Blood Urea Nitrogen 7 mg/dl (9-20); Calcium 8.2 mg/dl (8.4-10.2); Carbon Dioxide 26 mmol/L (22-30); Chloride 103 mmol/L (98-107); Estimated Creatinine Clearance 36 ml/min; Glucose 68 mg/dl (70-99); Potassium 3.1 mmol/L (3.5-5.1); Sodium 134 mmol/L (135-145); eGFR 39.66
[2025-05-21 07:54] LABS: Glucose - Point of Care 74 mg/dl (70-99)
[2025-05-21 08:09] VITALS: BP 138/86
[2025-05-21] MEDS: NOVOLOG FLEXPEN-LOW RESISTANCE SC ×3 (09:45→17:19)
[2025-05-21] MEDS: ANTIFUNGAL CLEAR TOPICAL ×2 (09:48→21:11)
[2025-05-21] MEDS: DESENEX/MITRAZOL/ZEASORB TOPICAL ×2 (09:48→21:12)
[2025-05-21] MEDS: OASIS PO ×4 (09:49→21:17)
[2025-05-21] MEDS: SENOKOT PO ×2 (09:49→21:14)
[2025-05-21] MEDS: PROTONIX IV IV (09:49)
[2025-05-21] MEDS: THERAGRAN PO (09:49)
[2025-05-21] MEDS: NSS (PRESERVATIVE FREE) IV (09:49)
[2025-05-21] MEDS: MYCOSTATIN ORAL SUSPENSION PO ×4 (09:49→21:16)
[2025-05-21] MEDS: PROSCAR PO (09:49)
[2025-05-21] MEDS: VITAMIN C PO (09:50)
[2025-05-21] MEDS: VITAMIN B1 PO (09:50)
[2025-05-21] MEDS: WELLBUTRIN XL (24 hour extended release) PO (09:50)
[2025-05-21] MEDS: COMPAZINE 5 MG IV (09:56)
[2025-05-21] MEDS: ANCEF IV (09:56)
[2025-05-21] MEDS: HEPARIN 5000 UNITS SC (09:57)
[2025-05-21 10:47] LABS: Iron 53 ug/dl (49-181)
[2025-05-21] MEDS: ANCEF 10 IV ×2 (10:48→21:11)
[2025-05-21 10:56] LABS: Total Iron Binding Capacity 97 ug/dl (261-462)
[2025-05-21 11:34] LABS: Ferritin 623.0 ng/ml (17.9-464.0)
[2025-05-21 11:51] LABS: Glucose - Point of Care 96 mg/dl (70-99)
--- NOTE | 2025-05-21 13:21 | W.PN.NEPH.PH ---
Today's Communication / Plan
-
Dialysis tomorrow
Assessment/Plan
-
IMP:
POLA
Metastatic Renal Cell Carcinoma with Spinal Column Metastasis and subsequent Spinal Infection s/p Left L1 & B/L L2 Segmental Artery Embolization (03/30/25); T12-L2 laminectomy, Left L1/2 corpectomy, T11-L4 fusion (03/31/25); Thoracolumbar Wound
Washout with PRS closure (04/30/2025).
recent PET/CT on 02/27/2025 there is also high FDG activity/pulmonary nodule left upper lobe.
MSSA Bacteremia secondary to Spinal Infection
Status post left nephrectomy for RCC.
Acute urine retention
Obstructive uropathy with right JJ stent placed on 05/05/2025
Elevated anion gap metabolic acidosis.
Chronic normocytic anemia
Severe Protein Calorie Malnutrition
Anxiety / Depression
Hyperalbuminemia
Plan:
IVF D5NS continue
replete K
follow BMP
elevated PR3 36. significance of this is uncertain. Cm is not a good candidate for a renal biopsy given solitary right kidney with hydro. > Nonoliguric
Ongoing treatment for thrush improved still with significant nausea and vomiting with what he describes a metallic taste which is ongoing.
05/17 Long discussion with the patient and his sister Jelena at the bedside about dialysis and whether is poor appetite and metallic taste is from uremia. Despite his stable kidney function and urea only 34 he has no muscle mass creatinine 3.7
likely underestimating his estimated GFR which is likely less than 18 mL/min.
They understand that if we did dialysis is not guaranteed that his symptoms will improve and with that said symptoms would not improve for a few weeks not after just a few treatments.
They agreed to give a trial of dialysis to see if symptoms improve.
Initiate hemodialysis 05/18/2025
I did tell if is any improvement in his symptoms of nausea he is very stoic with a flat affect. I do not expect improvement in 3 treatments but rather 2 to 3 weeks or longer. With that said his creatinine is only 2 though no muscle mass.
I will dialyze again tomorrow and will have to determine whether we will be continuing dialysis as he is nonoliguric
-
-
Date of Service: May 21, 2025
CC / HPI / ROS
-
Chief Complaint:
POLA
History of Present Illness:
POAL/Cr stalled to 3.9
acidosis stable
Hgb stable
BP stable
still with back pain
K low 2.9
Review of Systems:
no CP/SOB
nonoliguric with lovett
Nausea vomiting dry heaving persists seems to be much improved
Labs
-
Labs:
WBC 4.5 10^3/uL (4.8-10.8) L 05/21/25 05:37
RBC 2.48 10^6/uL (4.70-6.10) L 05/21/25 05:37
Hgb 7.3 g/dL (13.0-18.0) L 05/21/25 05:37
Hct 23.5 % (39.0-52.0) L 05/21/25 05:37
Plt Count 149 10^3/uL (130-400) 05/21/25 05:37
Sodium 134 mmol/L (135-145) L 05/21/25 05:37
Potassium 3.1 mmol/L (3.5-5.1) L 05/21/25 05:37
Chloride 103 mmol/L (98-107) 05/21/25 05:37
Carbon Dioxide 26 mmol/L (22-30) 05/21/25 05:37
BUN 7 mg/dl (9-20) L 05/21/25 05:37
Creatinine 2.0 mg/dL (0.7-1.3) H 05/21/25 05:37
eGFR 39.66 05/21/25 05:37
Glucose 68 mg/dl (70-99) L 05/21/25 05:37
Calcium 8.2 mg/dl (8.4-10.2) L 05/21/25 05:37
Phosphorus 2.9 mg/dl (2.5-4.5) 05/19/25 06:07
Albumin 2.3 g/dl (3.5-5.0) L 05/07/25 05:59
Physical Exam
-
Vital Signs:
Vital Signs
Temp Pulse Resp BP Pulse Ox
98.4 F 95 18 138/86 98
05/21/25 08:09 05/21/25 08:09 05/21/25 08:09 05/21/25 08:09 05/21/25 08:09
Cardiovascular:: Regular rate and rhythm
Respiratory:: Bilateral: Coarse
Lung Excursion:: Normal
Abdomen:: Nontender and Soft
Bowel Sounds:: Normal
Extremity Edema:: None: Bilateral:
[2025-05-21 15:05] VITALS: BP 142/87
--- NOTE | 2025-05-21 15:32 | W.PN.HOSP.TC ---
Today's Communication/Plan
-
IV antibiotics
Monitor oral intake
HD as per schedule
Supportive care
Assessment / Plan
Assessment / Plan
49M with metastatic renal cell carcinoma who transferred from [facility] to following a prolonged hospitalization for worsening malignant soft tissue in the spinal canal with severe spinal stenosis, s/p artery embolization and spinal surgery, c/b spinal
wound infection with wound dehiscence and MSSA bacteremia s/p washout with placement of wound vac and treated with prolonged coarse of IV Ancef. Since transfer he has removed his DHT and refuses replacement, however has minimal po intake and is
deconditioned.
MSSA Bacteremia secondary to Spinal Infection
- Continue cefazolin 2gm q12h through Jun 10
- Will likely need chronic cefadroxil afterwards
- Follow-up schedule with ID at [facility]
- Continue wound care.
� Bilateral JEEVAN drain, monitor output daily. Consider removing drains if output less than 30 mL in 2 consecutive days
� Wound VAC removed on May 11
Metastatic Renal Cell Carcinoma
met to Spinal Column Metastasis
s/p Left L1 & B/L L2 Segmental Artery Embolization (03/30/25); T12-L2 laminectomy, Left L1/2 corpectomy, T11-L4 fusion (03/31/25); Thoracolumbar Wound Washout with PRS closure (04/30/2025).
In review of recent PET/CT on 02/27/2025 there is also high FDG activity/pulmonary nodule left upper lobe.
oncology signed off, rec 'OP follow up with [facility] oncologist recommended after discharge to discuss systemic therapy options base on resololution of infection, renal function, nutrional status, and performance status.'
MRI of the brain, ordered with persistent nausea and emesis and concern for central symptoms, negative for intracranial disease.
Acute kidney injury
Elevated anion gap metabolic acidosis.
Status post left nephrectomy for RCC.
Obstructive uropathy with right JJ stent placed on 05/05/2025
Eldridge catheter in place.
repeat UA
Urine sodium 115
Noted with mild elevation of proteinase 3 at 36. Isolated with unknown significance. Unlikely vasculitis. Patient would be a poor candidate for renal biopsy due to solitary R kidney
Renal ultrasound -medical renal disease.
Continue IV fluids maintenance while low oral intake. Follow BMP
Hypokalenmia�resolved
repleted with IV K
Chronic normocytic anemia
Iron studies indicative of mild iron deficiency and anemia of chronic disease. Per heme/onc, no role for supplementation
Erythropoietin level of 4, low end of normal range.
Follow hemoglobin, transfuse if Hgb<7
Pain Management
-Patient previously on Morphine ER which was switched to Morphine IR when DHT was placed
-Patient had been refusing scheduled doses of narcotics
-Continue oxycodone PRN
Severe Protein Calorie Malnutrition
DHT placed at [facility], has since been removed. Patient does not want it replaced.
Patient reports no swallowing issues, although with persistent nausea and vomiting and metallic taste preventing sufficient oral intake.
Persistent nausea and vomiting with minuscule oral intake possibly multifactorial in the settings of uremia. Opioids stopped.
Exam with no thrush in oral cavity, although initiated empirically on nystatin on 05/12. Cont biotene, chloraseptic spray
Discussed with GI. At this point no clear indication for endoscopic evaluation.
Allow regular diet
PRN antiemetics
Consult Dietary. Patient refusing protein shakes.
Initiated on Remeron 7.5 mg at bedtime on 05/15. No improvement in oral intake yet Remeron discontinued on 05/20 given prolonged QT
discussing TPN with nutrition
Vasovagal episode/presyncope on 05/20.
No focal findings on neurologic examination. Slight mild hypoglycemia with blood glucose of 74.
Monitor closely for hypotension.
Prolonged QTc
Stop Remeron and Zofran
Improved
Avoid QT prolonging medications
Stage I coccyx pressure injury present on admission. Continue care
Anxiety / Depression
-Continue bupropion
Deconditioning
-PM&R rec acute rehab once eating well or other nutrition plan in place
DVT proph: SC Heparin
Code Status: Full Code
Dispo - acute inpatient rehab
Anticipated Discharge: 24 - 48 hours
Subjective/Interval History
-
Date of Service: May 21, 2025
Objective Data
-
Labs:
Laboratory Results
05/21/25
05:37
WBC 4.5 L
Hgb 7.3 L
Hct 23.5 L
Plt Count 149
Sodium 134 L
Potassium 3.1 L
Chloride 103
Carbon Dioxide 26
BUN 7 L
Creatinine 2.0 H
Glucose 68 L
Calcium 8.2 L
Vital Signs:
Vital Signs
Temp Pulse Resp BP Pulse Ox
98.4 F 95 16 142/87 98
05/21/25 15:05 05/21/25 15:05 05/21/25 15:05 05/21/25 15:05 05/21/25 15:05
I&O
05/20/25 05/21/25 05/22/25
06:59 06:59 06:59
Intake Total 960 / 960 840 / 840 240 / 240
Output Total 1440 / 1440 1120 / 1120
Balance -480 / -480 -280 / -280 240 / 240
Physical Exam
-
General: No Apparent Distress and Cachectic
HEENT: Normocephalic and Atraumatic; Negative Moist Mucous Membranes or Thrush
Respiratory: Clear to Auscultation; Negative Wheezes, Rales or Rhonchi
Cardiac: Regular Rhythm and S1/S2; Negative Murmur, Rub or Gallop
GI: Soft, Nontender, Nondistended and Normal Bowel Sounds; Negative Organomegaly
Genito-urinary: Eldridge
Musculoskeletal: No Clubbing, No Cyanosis, No Edema and Other (Bilateral paraspinal/T-spine level JEEVAN drain. )
Skin: Warm and Dry; Negative Rash
Neuro: Awake, Alert, Oriented, AO x 3, Tremors (Mild bilateral upper extremity resting tremor) and Nonfocal/Grossly Intact
Psych: Calm
[2025-05-21 17:18] LABS: Glucose - Point of Care 96 mg/dl (70-99)
[2025-05-21] MEDS: HEPARIN SC (21:14)
[2025-05-21] MEDS: FLOMAX PO (21:15)
[2025-05-21 22:29] LABS: Glucose - Point of Care 102 mg/dl (70-99)
[2025-05-21 23:00] VITALS: BP 148/92
[2025-05-22] MEDS: MYCOSTATIN ORAL SUSPENSION 5 ML PO ×3 (00:20→22:07)
[2025-05-22 06:00] VITALS: BMI 19.1
[2025-05-22 07:00] VITALS: BP 147/102
[2025-05-22 07:55] LABS: Glucose - Point of Care 83 mg/dl (70-99)
[2025-05-22] MEDS: PROTONIX IV 40 MG IV ×2 (08:17→19:41)
[2025-05-22] MEDS: NSS (PRESERVATIVE FREE) 10 ML IV ×2 (08:18→19:41)
[2025-05-22] MEDS: ANCEF 10 IV ×2 (08:18→19:41)
[2025-05-22] MEDS: HEPARIN 5000 UNITS SC ×2 (08:18→19:42)
[2025-05-22] MEDS: NOVOLOG FLEXPEN-LOW RESISTANCE SC ×3 (08:29→17:02)
[2025-05-22] MEDS: WELLBUTRIN XL (24 hour extended release) PO (08:29)
[2025-05-22] MEDS: ANTIFUNGAL CLEAR TOPICAL ×2 (08:30→19:41)
[2025-05-22] MEDS: DESENEX/MITRAZOL/ZEASORB TOPICAL ×2 (08:30→19:42)
[2025-05-22] MEDS: SENOKOT PO ×2 (08:31→19:43)
[2025-05-22] MEDS: OASIS PO ×4 (08:31→21:38)
[2025-05-22] MEDS: PROSCAR PO (08:31)
[2025-05-22] MEDS: VITAMIN B1 PO (08:32)
[2025-05-22] MEDS: VITAMIN C PO (08:32)
[2025-05-22] MEDS: THERAGRAN PO (08:32)
--- NOTE | 2025-05-22 08:45 | PTCARENOTE ---
patient refused most medications with exception of Ancef IV, heparin SQ shot and IV Protonix. Nystatin suspension also admin for c/o oral thrush. vomited once this AM. denies nausea. remains in bed. flat affect, appears withdrawn and speaks mostly
with one or few word sentences. MD notified of medications refusal
[2025-05-22 08:51] LABS: Hematocrit 26.5 % (39.0-52.0); Hemoglobin 8.2 g/dL (13.0-18.0); Mean Corp Hgb Conc. 30.9 g/dL (33.0-37.0); Mean Corpuscular Volume 95.7 fL (80.0-94.0); Nucleated Red Blood Cells % 0 % (-); Platelet Count 207 10^3/uL (130-400); Red Cell Dist. Width 18.3 % (11.5-14.5)
[2025-05-22 09:07] LABS: Blood Urea Nitrogen 13 mg/dl (9-20); Calcium 8.5 mg/dl (8.4-10.2); Carbon Dioxide 24 mmol/L (22-30); Chloride 103 mmol/L (98-107); Estimated Creatinine Clearance 28 ml/min; Glucose 73 mg/dl (70-99); Potassium 3.2 mmol/L (3.5-5.1); Sodium 135 mmol/L (135-145); eGFR 28.95
[2025-05-22 09:56] VITALS: BP 135/86; PULSE 96; O2SAT 99
[2025-05-22 10:00] VITALS: BP 135/86; PULSE 96; O2SAT 99
[2025-05-22 11:33] LABS: Glucose - Point of Care 85 mg/dl (70-99)
[2025-05-22] MEDS: DIFLUCAN 400 MG 200 IV ×2 (11:38→16:41)
[2025-05-22] MEDS: RETACRIT 10000 UNITS IV (14:38)
[2025-05-22 15:00] VITALS: BP 122/92
--- NOTE | 2025-05-22 15:04 | W.PN.HOSP.TC ---
Today's Communication/Plan
-
With persistent odynophagia will start empiric treatment with Diflucan.
Continue acid suppression increasing Protonix to 40 mg IV twice daily.
Discussed with gastroenterology, if no improvement over the next 48 hours, would consider endoscopic evaluation.
Follow-up ECG for QTc monitoring in a.m.
Oral nutritional supplement
Continue IV antibiotics
PT
Assessment / Plan
Assessment / Plan
49M with metastatic renal cell carcinoma who transferred from [facility] to following a prolonged hospitalization for worsening malignant soft tissue in the spinal canal with severe spinal stenosis, s/p artery embolization and spinal surgery, c/b spinal
wound infection with wound dehiscence and MSSA bacteremia s/p washout with placement of wound vac and treated with prolonged coarse of IV Ancef. Since transfer he has removed his DHT and refuses replacement, however has minimal po intake and is
deconditioned.
MSSA Bacteremia secondary to Spinal Infection
- Continue cefazolin 2gm q12h through Jun 10
- Will likely need chronic cefadroxil afterwards
- Follow-up schedule with ID at [facility]
- Continue wound care.
� Bilateral JEEVAN drain, monitor output daily. Consider removing drains if output less than 30 mL in 2 consecutive days
� Wound VAC removed on May 11
Metastatic Renal Cell Carcinoma
met to Spinal Column Metastasis
s/p Left L1 & B/L L2 Segmental Artery Embolization (03/30/25); T12-L2 laminectomy, Left L1/2 corpectomy, T11-L4 fusion (03/31/25); Thoracolumbar Wound Washout with PRS closure (04/30/2025).
In review of recent PET/CT on 02/27/2025 there is also high FDG activity/pulmonary nodule left upper lobe.
oncology signed off, rec 'OP follow up with [facility] oncologist recommended after discharge to discuss systemic therapy options base on resololution of infection, renal function, nutrional status, and performance status.'
MRI of the brain, ordered with persistent nausea and emesis and concern for central symptoms, negative for intracranial disease.
Acute kidney injury
Elevated anion gap metabolic acidosis.
Status post left nephrectomy for RCC.
Obstructive uropathy with right JJ stent placed on 05/05/[address]25
Eldridge catheter in place.
repeat UA
Urine sodium 115
Noted with mild elevation of proteinase 3 at 36. Isolated with unknown significance. Unlikely vasculitis. Patient would be a poor candidate for renal biopsy due to solitary R kidney
Renal ultrasound -medical renal disease.
Continue IV fluids maintenance while low oral intake. Follow BMP
Hypokalenmia�resolved
repleted with IV K
Chronic normocytic anemia
Iron studies indicative of mild iron deficiency and anemia of chronic disease. Per heme/onc, no role for supplementation
Erythropoietin level of 4, low end of normal range.
Follow hemoglobin, transfuse if Hgb<7
Pain Management
-Patient previously on Morphine ER which was switched to Morphine IR when DHT was placed
-Patient had been refusing scheduled doses of narcotics
-Continue oxycodone PRN
Severe Protein Calorie Malnutrition
Persistent nausea with odynophagia
DHT placed at [place], has since been removed. Patient does not want it replaced.
Patient reports no swallowing issues, although with persistent nausea and vomiting and metallic taste preventing sufficient oral intake.
Persistent nausea and vomiting with minuscule oral intake possibly multifactorial in the settings of uremia. Opioids stopped.
Exam with no thrush in oral cavity, although initiated empirically on nystatin on 05/12. Cont biotene, chloraseptic spray
MRI of the brain with no evidence of intracranial metastatic disease leaning away from central nausea.
Some improvement of oral intake with initiation of hemodialysis hopefully indicative of possibly uremia contributing to symptoms.
Trial of Remeron and Zofran led to increased QTc. Discontinued. QTc improved.
With persistent odynophagia will start empiric treatment with Diflucan.
Continue acid suppression increasing Protonix to 40 mg IV twice daily.
Discussed with gastroenterology, if no improvement over the next 48 hours, would consider endoscopic evaluation.
Vasovagal episode/presyncope on 05/20.
No focal findings on neurologic examination. Slight mild hypoglycemia with blood glucose of 74.
Monitor closely for hypotension.
Prolonged QTc
Stop Remeron and Zofran
Improved
Avoid QT prolonging medications
Stage I coccyx pressure injury present on admission. Continue care
Anxiety / Depression
-Continue bupropion
Deconditioning
-PM&R rec acute rehab once eating well or other nutrition plan in place
DVT proph: SC Heparin
Code Status: Full Code
Dispo - acute inpatient rehab
Anticipated Discharge: > 48 hours
Subjective/Interval History
-
Date of Service: May 22, 2025
Objective Data
-
Labs:
Laboratory Results
05/22/25
08:03
WBC 5.1
Hgb 8.2 L
Hct 26.5 L
Plt Count 207 D
Sodium 135
Potassium 3.2 L
Chloride 103
Carbon Dioxide 24
BUN 13
Creatinine 2.6 H
Glucose 73
Calcium 8.5
Vital Signs:
Vital Signs
Temp Pulse Resp BP Pulse Ox
98.0 F 118 18 147/102 97
05/22/25 07:00 05/22/25 07:00 05/22/25 07:00 05/22/25 07:00 05/22/25 07:00
I&O
05/21/25 05/22/25 05/23/25
06:59 06:59 06:59
Intake Total 840 / 840 240 / 240
Output Total 1120 / 1120 510 / 510
Balance -280 / -280 -270 / -270
Physical Exam
-
General: No Apparent Distress and Cachectic
HEENT: Normocephalic and Atraumatic; Negative Moist Mucous Membranes or Thrush
Respiratory: Clear to Auscultation; Negative Wheezes, Rales or Rhonchi
Cardiac: Regular Rhythm and S1/S2; Negative Murmur, Rub or Gallop
GI: Soft, Nontender, Nondistended and Normal Bowel Sounds; Negative Organomegaly
Genito-urinary: Eldridge
Musculoskeletal: No Clubbing, No Cyanosis, No Edema and Other (Bilateral paraspinal/T-spine level JEEVAN drain. )
Skin: Warm and Dry; Negative Rash
Neuro: Awake, Alert, Oriented, AO x 3, Tremors (Mild bilateral upper extremity resting tremor) and Nonfocal/Grossly Intact
Psych: Calm
--- NOTE | 2025-05-22 15:14 | W.PN.NEPH.HD ---
Assessment
-
pt seen during HD
vitals stable
still poor appetite
diflucan started per GI
CVC functions fine
Progress Note - Hemodialysis
-
Date of Service: May 22, 2025
Duration: 3 hours
Potassium Bath: 4
Calcium Bath: 2.5
Opti-Dialyzer: 160
Ultrafiltration: Other (0)
Blood Flow: 350
Dialysate Flow: 600
Heparin: no
EPO: 13520
[2025-05-22] MEDS: MYCOSTATIN ORAL SUSPENSION PO ×2 (15:16→17:02)
[2025-05-22 16:29] LABS: Glucose - Point of Care 63 mg/dl (70-99)
--- NOTE | 2025-05-22 16:32 | CM ---
CM following for discharge planning for transfer to [facility] [place]. Pt not stable for discharge at this time.
[2025-05-22 16:49] LABS: Glucose - Point of Care 73 mg/dl (70-99)
[2025-05-22 20:01] LABS: Glucose - Point of Care 90 mg/dl (70-99)
[2025-05-22] MEDS: FLOMAX PO (21:37)
--- NOTE | 2025-05-22 22:34 | PTCARENOTE ---
Per patient, CHG completed with therapy today.
[2025-05-22 23:00] VITALS: BP 132/95
[2025-05-23 06:29] VITALS: BMI 17.6
[2025-05-23 06:40] LABS: Glucose - Point of Care 76 mg/dl (70-99)
[2025-05-23 07:00] VITALS: BP 142/97
--- NOTE | 2025-05-23 08:25 | W.PN.HOSP.TC ---
Today's Communication/Plan
-
see bold
Assessment / Plan
Assessment / Plan
49M with metastatic renal cell carcinoma who transferred from [facility] to following a prolonged hospitalization for worsening malignant soft tissue in the spinal canal with severe spinal stenosis, s/p artery embolization and spinal surgery, c/b spinal
wound infection with wound dehiscence and MSSA bacteremia s/p washout with placement of wound vac and treated with prolonged coarse of IV Ancef. Since transfer he has removed his DHT and refuses replacement, however has minimal po intake and is
deconditioned.
MSSA Bacteremia secondary to Spinal Infection
- Continue cefazolin 2gm q12h through Jun 10
- Will likely need chronic cefadroxil afterwards
- Follow-up schedule with ID at [facility]
-Continue wound care.
�Bilateral JEEVAN drain, monitor output daily. Consider removing drains if output less than 30 mL in 2 consecutive days
�Wound VAC removed on May 11
Metastatic Renal Cell Carcinoma
met to Spinal Column Metastasis
s/p Left L1 & B/L L2 Segmental Artery Embolization (03/30/25); T12-L2 laminectomy, Left L1/2 corpectomy, T11-L4 fusion (03/31/25); Thoracolumbar Wound Washout with PRS closure (04/30/2025).
In review of recent PET/CT on 02/27/2025 there is also high FDG activity/pulmonary nodule left upper lobe.
oncology signed off, rec 'OP follow up with [facility] oncologist recommended after discharge to discuss systemic therapy options base on resolution of infection, renal function, nutritional status, and performance status.'
MRI of the brain, ordered with persistent nausea and emesis and concern for central symptoms, negative for intracranial disease.
Acute kidney injury
Elevated anion gap metabolic acidosis.
Status post left nephrectomy for RCC.
Obstructive uropathy with right JJ stent placed on 05/05/[address]25
Eldridge catheter in place.
repeat UA
Urine sodium 115
Noted with mild elevation of proteinase 3 at 36. Isolated with unknown significance. Unlikely vasculitis. Patient would be a poor candidate for renal biopsy due to solitary R kidney
Renal ultrasound -medical renal disease.
Appreciate nephrology input, dialysis started 05/18/25
Continue dialysis as per nephrology
Hypokalenmia
K 3.2 today, will replete w/ po KCl
Chronic normocytic anemia
Iron studies indicative of mild iron deficiency and anemia of chronic disease. Per heme/onc, no role for supplementation
Erythropoietin level of 4, low end of normal range.
Follow hemoglobin, transfuse if Hgb<7
Pain Management
-Patient previously on Morphine ER which was switched to Morphine IR when DHT was placed
-Patient had been refusing scheduled doses of narcotics
-Continue oxycodone PRN
Severe Protein Calorie Malnutrition
Persistent nausea with odynophagia
DHT placed at [facility], has since been removed. Patient does not want it replaced.
Patient reports no swallowing issues, although with persistent nausea and vomiting and metallic taste preventing sufficient oral intake.
Persistent nausea and vomiting with minuscule oral intake possibly multifactorial in the settings of uremia. Opioids stopped.
Exam with no thrush in oral cavity, although initiated empirically on nystatin on 05/12. Cont biotene, chloraseptic spray
MRI of the brain with no evidence of intracranial metastatic disease leaning away from central nausea.
Some improvement of oral intake with initiation of hemodialysis hopefully indicative of possibly uremia contributing to symptoms.
Trial of Remeron and Zofran led to increased QTc. Discontinued. QTc improved
Concern for esophageal candidiasis
With persistent odynophagia will start empiric treatment with Diflucan.
Continue acid suppression increasing Protonix to 40 mg IV twice daily.
Dr. Michel discussed with gastroenterology, if no improvement over the next 48 hours, would consider endoscopic evaluation.
Vasovagal episode/presyncope on 05/20.
No focal findings on neurologic examination. Slight mild hypoglycemia with blood glucose of 74.
Monitor closely for hypotension.
Prolonged QTc
Stop Remeron and Zofran
Improved
Avoid QT prolonging medications
Stage I coccyx pressure injury present on admission. Continue care
Anxiety / Depression
-Continue bupropion
Deconditioning
-PM&R rec acute rehab once eating well or other nutrition plan in place
DVT proph: SC Heparin
Code Status: Full Code
Dispo - acute inpatient rehab
Total time spent to see the patient on the floor, examine the patient, review data and lab results, discuss treatment plan with patient, nursing staff around 45 minutes.
Physical Exam
General: No acute distress
HEENT: Normocephalic, Atraumatic, EOMI, MMM
Respiratory: Clear to Auscultation bilaterally
Cardiac: Normal S1/S2, Regular Rate and Rhythm
GI: Soft, Nontender, Nondistended, Normal Bowel Sounds
Extremities: No Clubbing, Cyanosis, or Edema
Neuro: Nonfocal/Grossly Intact
Psych: Calm, Cooperative
Anticipated Discharge: > 48 hours
Subjective/Interval History
-
Date of Service: May 23, 2025
Patient complains of a dry feeling in his mouth in the morning, with rough patches, and spitting out white plaques. He states that all of the plaques have been removed by him. He denies odynophagia. He does report a feeling of food getting stuck
in his throat. Denies chest pain, denies shortness of breath. He vomited water this morning, but was able to tolerate his breakfast.
Objective Data
-
Vital Signs:
Vital Signs
Temp Pulse Resp BP Pulse Ox
98.3 F 115 16 142/97 100
05/23/25 07:00 05/23/25 07:00 05/23/25 07:00 05/23/25 07:00 05/23/25 07:00
I&O
05/22/25 05/23/25 05/24/25
06:59 06:59 06:59
Intake Total 240 / 240 540 / 540
Output Total 510 / 510 663 / 663
Balance -270 / -270 -123 / -123
[2025-05-23] MEDS: NOVOLOG FLEXPEN-LOW RESISTANCE SC ×2 (08:31→12:35)
[2025-05-23] MEDS: PROTONIX IV 40 MG IV ×2 (08:32→20:56)
[2025-05-23] MEDS: MYCOSTATIN ORAL SUSPENSION 5 ML PO ×3 (08:34→17:14)
[2025-05-23] MEDS: NSS (PRESERVATIVE FREE) 10 ML IV ×2 (08:34→20:56)
[2025-05-23] MEDS: HEPARIN 5000 UNITS SC (08:34)
[2025-05-23] MEDS: ANCEF 10 IV ×2 (08:38→20:55)
[2025-05-23] MEDS: ANTIFUNGAL CLEAR TOPICAL ×2 (08:41→20:56)
[2025-05-23] MEDS: DESENEX/MITRAZOL/ZEASORB TOPICAL ×2 (08:41→20:56)
[2025-05-23] MEDS: OASIS PO ×4 (08:42→21:10)
[2025-05-23] MEDS: SENOKOT PO ×2 (08:42→20:56)
[2025-05-23] MEDS: WELLBUTRIN XL (24 hour extended release) PO (08:42)
[2025-05-23] MEDS: PROSCAR PO (08:42)
[2025-05-23] MEDS: THERAGRAN PO (08:42)
[2025-05-23] MEDS: VITAMIN B1 PO (08:42)
[2025-05-23] MEDS: VITAMIN C PO (08:42)
--- NOTE | 2025-05-23 10:28 | W.PN.NEPH.PH ---
Today's Communication / Plan
-
HD on Sunday
Assessment/Plan
-
IMP:
POLA
Metastatic Renal Cell Carcinoma with Spinal Column Metastasis and subsequent Spinal Infection s/p Left L1 & B/L L2 Segmental Artery Embolization (03/30/25); T12-L2 laminectomy, Left L1/2 corpectomy, T11-L4 fusion (03/31/25); Thoracolumbar Wound
Washout with PRS closure (04/30/2025).
recent PET/CT on 02/27/2025 there is also high FDG activity/pulmonary nodule left upper lobe.
MSSA Bacteremia secondary to Spinal Infection
Status post left nephrectomy for RCC.
Acute urine retention
Obstructive uropathy with right JJ stent placed on 05/05/2025
Elevated anion gap metabolic acidosis.
Chronic normocytic anemia
Severe Protein Calorie Malnutrition
Anxiety / Depression
Hyperalbuminemia
Plan:
HD initiated with concerning of ?uremia causing his nausea and decreased po intake
no sig improvement yet
he remains non oliguric with lovett
Diflucan started for suspected esophageal vance
assess response with above and cont HD for time being
d/w pt, next HD Sunday
-
-
Date of Service: May 23, 2025
CC / HPI / ROS
-
Chief Complaint:
POLA
History of Present Illness:
POLA/Cr stalled to 3.9, now better with HD
Hgb stable 8.2
BP stable
labs pending today
Review of Systems:
no CP/SOB
nonoliguric with lovett
Nausea , odynophagia no change
Labs
-
Labs:
WBC 5.1 10^3/uL (4.8-10.8) 05/22/25 08:03
RBC 2.77 10^6/uL (4.70-6.10) L 05/22/25 08:03
Hgb 8.2 g/dL (13.0-18.0) L 05/22/25 08:03
Hct 26.5 % (39.0-52.0) L 05/22/25 08:03
Plt Count 207 10^3/uL (130-400) D 05/22/25 08:03
Sodium 135 mmol/L (135-145) 05/22/25 08:03
Potassium 3.2 mmol/L (3.5-5.1) L 05/22/25 08:03
Chloride 103 mmol/L (98-107) 05/22/25 08:03
Carbon Dioxide 24 mmol/L (22-30) 05/22/25 08:03
BUN 13 mg/dl (9-20) 05/22/25 08:03
Creatinine 2.6 mg/dL (0.7-1.3) H 05/22/25 08:03
eGFR 28.95 05/22/25 08:03
Glucose 73 mg/dl (70-99) 05/22/25 08:03
Calcium 8.5 mg/dl (8.4-10.2) 05/22/25 08:03
Phosphorus 2.9 mg/dl (2.5-4.5) 05/19/25 06:07
Albumin 2.3 g/dl (3.5-5.0) L 05/07/25 05:59
Physical Exam
-
Vital Signs:
Vital Signs
Temp Pulse Resp BP Pulse Ox
98.3 F 115 16 142/97 100
05/23/25 07:00 05/23/25 07:00 05/23/25 07:00 05/23/25 07:00 05/23/25 07:00
Cardiovascular:: Regular rate and rhythm
Respiratory:: Bilateral: CTA
Lung Excursion:: Normal
Abdomen:: Nontender and Soft
Bowel Sounds:: Normal
Extremity Edema:: None: Bilateral:
Lovett Catheter: Yes
[2025-05-23 11:33] VITALS: BP 123/85; BP 83/56
[2025-05-23 12:31] LABS: Glucose - Point of Care 104 mg/dl (70-99)
[2025-05-23] MEDS: DIFLUCAN 200 MG 100 IV (12:45)
[2025-05-23 14:57] LABS: Blood Urea Nitrogen 9 mg/dl (9-20); Calcium 8.0 mg/dl (8.4-10.2); Carbon Dioxide 26 mmol/L (22-30); Chloride 100 mmol/L (98-107); Estimated Creatinine Clearance 28 ml/min; Glucose 126 mg/dl (70-99); Magnesium 1.7 mg/dl (1.6-2.3); Potassium 3.4 mmol/L (3.5-5.1); Sodium 132 mmol/L (135-145); eGFR 31.87
[2025-05-23 15:00] VITALS: BP 123/91
[2025-05-23 16:37] LABS: Glucose - Point of Care 298 mg/dl (70-99)
[2025-05-23] MEDS: NOVOLOG FLEXPEN-LOW RESISTANCE 3 UNITS SC (17:13)
[2025-05-23] MEDS: HEPARIN SC (17:52)
[2025-05-23] MEDS: MYCOSTATIN ORAL SUSPENSION PO (21:10)
[2025-05-23] MEDS: FLOMAX PO (21:10)
[2025-05-23 21:30] LABS: Glucose - Point of Care 98 mg/dl (70-99)
[2025-05-23 23:25] VITALS: BP 141/93
[2025-05-24 06:00] VITALS: BMI 17.5
[2025-05-24 07:00] VITALS: BP 142/92
[2025-05-24 07:03] LABS: Blood Urea Nitrogen 11 mg/dl (9-20); Calcium 8.2 mg/dl (8.4-10.2); Carbon Dioxide 26 mmol/L (22-30); Chloride 101 mmol/L (98-107); Estimated Creatinine Clearance 25 ml/min; Glucose 78 mg/dl (70-99); Potassium 3.1 mmol/L (3.5-5.1); Sodium 132 mmol/L (135-145); eGFR 27.67
[2025-05-24 08:29] LABS: Glucose - Point of Care 91 mg/dl (70-99)
[2025-05-24] MEDS: NOVOLOG FLEXPEN-LOW RESISTANCE SC ×3 (08:43→16:38)
--- NOTE | 2025-05-24 09:41 | W.PN.HOSP.TC ---
Today's Communication/Plan
-
Consult GI, n.p.o. for endoscopy tomorrow
Assessment / Plan
Assessment / Plan
49M with metastatic renal cell carcinoma who transferred from [facility] to following a prolonged hospitalization for worsening malignant soft tissue in the spinal canal with severe spinal stenosis, s/p artery embolization and spinal surgery, c/b spinal
wound infection with wound dehiscence and MSSA bacteremia s/p washout with placement of wound vac and treated with prolonged coarse of IV Ancef. Since transfer he has removed his DHT and refuses replacement, however has minimal po intake and is
deconditioned.
MSSA Bacteremia secondary to Spinal Infection
- Continue cefazolin 2gm q12h through Jun 10
- Will likely need chronic cefadroxil afterwards
- Follow-up schedule with ID at [facility]
-Continue wound care.
�Bilateral JEEVAN drain, monitor output daily. Consider removing drains if output less than 30 mL in 2 consecutive days
�Wound VAC removed on May 11
Metastatic Renal Cell Carcinoma
met to Spinal Column Metastasis
s/p Left L1 & B/L L2 Segmental Artery Embolization (03/30/25); T12-L2 laminectomy, Left L1/2 corpectomy, T11-L4 fusion (03/31/25); Thoracolumbar Wound Washout with PRS closure (04/30/2025).
In review of recent PET/CT on 02/27/2025 there is also high FDG activity/pulmonary nodule left upper lobe.
oncology signed off, rec 'OP follow up with [facility] oncologist recommended after discharge to discuss systemic therapy options base on resolution of infection, renal function, nutritional status, and performance status.'
MRI of the brain, ordered with persistent nausea and emesis and concern for central symptoms, negative for intracranial disease.
Acute kidney injury
Elevated anion gap metabolic acidosis.
Status post left nephrectomy for RCC.
Obstructive uropathy with right JJ stent placed on 05/05/[address] catheter in place.
repeat UA
Urine sodium 115
Noted with mild elevation of proteinase 3 at 36. Isolated with unknown significance. Unlikely vasculitis. Patient would be a poor candidate for renal biopsy due to solitary R kidney
Renal ultrasound -medical renal disease.
Appreciate nephrology input, dialysis started 05/18/25
Continue dialysis as per nephrology
Hypokalenmia
K 3.1 today, will replete w/IV KCl
Chronic normocytic anemia
Iron studies indicative of mild iron deficiency and anemia of chronic disease. Per heme/onc, no role for supplementation
Erythropoietin level of 4, low end of normal range.
Follow hemoglobin, transfuse if Hgb<7
Pain Management
-Patient previously on Morphine ER which was switched to Morphine IR when DHT was placed
-Patient had been refusing scheduled doses of narcotics
-Continue oxycodone PRN
Severe Protein Calorie Malnutrition
Persistent nausea with odynophagia
DHT placed at [facility], has since been removed. Patient does not want it replaced.
Patient reports no swallowing issues, although with persistent nausea and vomiting and metallic taste preventing sufficient oral intake.
Persistent nausea and vomiting with minuscule oral intake possibly multifactorial in the settings of uremia. Opioids stopped.
Exam with no thrush in oral cavity, although initiated empirically on nystatin on 05/12. Cont biotene, chloraseptic spray
MRI of the brain with no evidence of intracranial metastatic disease leaning away from central nausea.
Some improvement of oral intake with initiation of hemodialysis hopefully indicative of possibly uremia contributing to symptoms.
Trial of Remeron and Zofran led to increased QTc. Discontinued. QTc improved
Concern for esophageal candidiasis
With persistent odynophagia will start empiric treatment with Diflucan.
Continue acid suppression increasing Protonix to 40 mg IV twice daily.
Discussed with GI, make patient n.p.o. after midnight for endoscopy tomorrow
Vasovagal episode/presyncope on 05/20.
No focal findings on neurologic examination. Slight mild hypoglycemia with blood glucose of 74.
Monitor closely for hypotension.
Prolonged QTc
Stop Remeron and Zofran
Improved
Avoid QT prolonging medications
Stage I coccyx pressure injury present on admission. Continue care
Anxiety / Depression
-Continue bupropion
Deconditioning
-PM&R rec acute rehab once eating well or other nutrition plan in place
DVT proph: SC Heparin
Code Status: Full Code
Dispo - acute inpatient rehab
Total time spent to see the patient on the floor, examine the patient, review data and lab results, discuss treatment plan with patient, nursing staff around 50 minutes.
Physical Exam
General: No acute distress
HEENT: Normocephalic, Atraumatic, EOMI, MMM
Respiratory: Clear to Auscultation bilaterally
Cardiac: Normal S1/S2, Regular Rate and Rhythm
GI: Soft, Nontender, Nondistended, Normal Bowel Sounds
Msk: +JEEVAN drains x 2
Extremities: No Clubbing, Cyanosis, or Edema
Neuro: Nonfocal/Grossly Intact
Psych: Calm, Cooperative
Anticipated Discharge: > 48 hours
Subjective/Interval History
-
Date of Service: May 24, 2025
Patient reports having white residue come out of his mouth when rinsing in the morning. He feels his mouth is very dry. He continues to have difficulty with oral intake, states that it activates his gag reflex, and feels something is wrong in his
esophagus. He is only eating 10% of his meals. Denies chest pain, denies shortness of breath, no fever, no vomiting.
Objective Data
-
Labs:
Laboratory Results
05/24/25
06:11
Sodium 132 L
Potassium 3.1 L
Chloride 101
Carbon Dioxide 26
BUN 11
Creatinine 2.7 H
Glucose 78
Calcium 8.2 L
Vital Signs:
Vital Signs
Temp Pulse Resp BP Pulse Ox
98.2 F 95 17 142/92 99
05/24/25 07:00 05/24/25 07:00 05/24/25 07:00 05/24/25 07:00 05/24/25 07:00
I&O
05/23/25 05/24/25 05/25/25
06:59 06:59 06:59
Intake Total 540 / 540 450 / 450
Output Total 663 / 663 925 / 925
Balance -123 / -123 -475 / -[facility]
[2025-05-24] MEDS: ANCEF 10 IV ×2 (09:47→20:50)
[2025-05-24] MEDS: NSS (PRESERVATIVE FREE) 10 ML IV ×2 (09:49→20:50)
[2025-05-24] MEDS: PROTONIX IV 40 MG IV ×2 (09:49→20:51)
[2025-05-24] MEDS: FLUSH (NSS) 3 FLUSH IV (09:51)
[2025-05-24] MEDS: ANTIFUNGAL CLEAR 1 APPLIC TOPICAL ×2 (09:54→20:52)
[2025-05-24] MEDS: DESENEX/MITRAZOL/ZEASORB 1 APPLIC TOPICAL ×2 (09:54→20:52)
[2025-05-24] MEDS: VITAMIN B1 PO (09:55)
[2025-05-24] MEDS: OASIS PO ×4 (09:55→22:17)
[2025-05-24] MEDS: PROSCAR PO (09:55)
[2025-05-24] MEDS: VITAMIN C PO (09:56)
[2025-05-24] MEDS: SENOKOT PO ×2 (09:56→20:51)
[2025-05-24] MEDS: WELLBUTRIN XL (24 hour extended release) PO (09:56)
[2025-05-24] MEDS: THERAGRAN PO (09:56)
[2025-05-24] MEDS: MYCOSTATIN ORAL SUSPENSION 5 ML PO ×3 (10:05→17:59)
[2025-05-24] MEDS: HEPARIN 5000 UNITS SC ×2 (10:05→20:56)
--- NOTE | 2025-05-24 10:32 | PTCARENOTE ---
pt not taking pills, ordered PO and IV KCL. So MD made aware that patient will not take the PO KCL
[2025-05-24] MEDS: KCL 260 MEQ IV (10:41)
[2025-05-24 12:22] LABS: Glucose - Point of Care 130 mg/dl (70-99)
[2025-05-24] MEDS: DIFLUCAN 200 MG 100 IV (13:34)
[2025-05-24 15:00] VITALS: BP 142/97
[2025-05-24 16:31] LABS: Glucose - Point of Care 105 mg/dl (70-99)
--- NOTE | 2025-05-24 16:49 | W.PN.NEPH.PH ---
Today's Communication / Plan
-
HD move to Sunday
Assessment/Plan
-
IMP:
POLA
Metastatic Renal Cell Carcinoma with Spinal Column Metastasis and subsequent Spinal Infection s/p Left L1 & B/L L2 Segmental Artery Embolization (03/30/25); T12-L2 laminectomy, Left L1/2 corpectomy, T11-L4 fusion (03/31/25); Thoracolumbar Wound
Washout with PRS closure (04/30/2025).
recent PET/CT on 02/27/2025 there is also high FDG activity/pulmonary nodule left upper lobe.
MSSA Bacteremia secondary to Spinal Infection
Status post left nephrectomy for RCC.
Acute urine retention
Obstructive uropathy with right JJ stent placed on 05/05/2025
Elevated anion gap metabolic acidosis.
Chronic normocytic anemia
Severe Protein Calorie Malnutrition
Anxiety / Depression
Hyperalbuminemia
Plan:
HD initiated with concerning of ?uremia causing his nausea and decreased po intake
no sig improvement yet may take time to see the change
he remains non oliguric with lovett
Diflucan started for suspected esophageal vance, pln endoscopy tomorrow?
given EGD tomorrow, will push HD to Sunday
replace k
-
-
Date of Service: May 24, 2025
CC / HPI / ROS
-
Chief Complaint:
POLA
History of Present Illness:
POLA/Cr HD started for ?uremia
Hgb stable 8.2 on 05/22
BP stable
k low 3.1
Review of Systems:
no CP/SOB
nonoliguric with lovett
Nausea , odynophagia no change
Labs
-
Labs:
WBC 5.1 10^3/uL (4.8-10.8) 05/22/25 08:03
RBC 2.77 10^6/uL (4.70-6.10) L 05/22/25 08:03
Hgb 8.2 g/dL (13.0-18.0) L 05/22/25 08:03
Hct 26.5 % (39.0-52.0) L 05/22/25 08:03
Plt Count 207 10^3/uL (130-400) D 05/22/25 08:03
Sodium 132 mmol/L (135-145) L 05/24/25 06:11
Potassium 3.1 mmol/L (3.5-5.1) L 05/24/25 06:11
Chloride 101 mmol/L (98-107) 05/24/25 06:11
Carbon Dioxide 26 mmol/L (22-30) 05/24/25 06:11
BUN 11 mg/dl (9-20) 05/24/25 06:11
Creatinine 2.7 mg/dL (0.7-1.3) H 05/24/25 06:11
eGFR 27.67 05/24/25 06:11
Glucose 78 mg/dl (70-99) 05/24/25 06:11
Calcium 8.2 mg/dl (8.4-10.2) L 05/24/25 06:11
Phosphorus 2.9 mg/dl (2.5-4.5) 05/19/25 06:07
Albumin 2.3 g/dl (3.5-5.0) L 05/07/25 05:59
Physical Exam
-
Vital Signs:
Vital Signs
Temp Pulse Resp BP Pulse Ox
97.4 F 101 17 142/97 99
05/24/25 15:00 05/24/25 15:00 05/24/25 15:00 05/24/25 15:00 05/24/25 15:00
Cardiovascular:: Regular rate and rhythm
Respiratory:: Bilateral: CTA
Lung Excursion:: Normal
Abdomen:: Nontender and Soft
Bowel Sounds:: Normal
Extremity Edema:: None: Bilateral:
Lovett Catheter: Yes
[2025-05-24] MEDS: FLOMAX PO (21:21)
[2025-05-24 21:38] LABS: Glucose - Point of Care 77 mg/dl (70-99)
[2025-05-24] MEDS: MYCOSTATIN ORAL SUSPENSION PO (22:17)
[2025-05-24 23:43] VITALS: BP 144/93
[2025-05-25 02:52] LABS: Glucose - Point of Care 87 mg/dl (70-99)
[2025-05-25 05:46] LABS: Glucose - Point of Care 76 mg/dl (70-99)
[2025-05-25 06:00] VITALS: BMI 17.5
--- NOTE | 2025-05-25 06:41 | CON.GI ---
Addendum entered and electronically signed by Darrell Cesar DO 05/25/25 09:31:
I saw and examined the patient.
The NETWORK SYSTEMS OPERATOR's note was reviewed and I agree with the note.
Comment: Mr. Randall is a 49 y.o male with past medical history notable for metastatic RCC (s/p prior nephrectomy 12/2024) complicated by spinal mets and spinal infection (s/p prior washout ) with MSSA bacteremia, obstructive uropathy (s/p R
JJ stent 04/2025), previous uremia (s/p iHD), severe protein calorie malnutrition (s/p previous DHT) and ongoing nausea and odynophagia for which GI has been consulted. Patient reports ongoing chronic symptoms over the past week. Previously
underwent prior placement of a DHT due to his symptoms but eventually removed this. Denies any dysphagia, but notes ongoing odynophagia, metallic taste along with intermittent nausea despite previous Brain MRI imaging unrevealing for any brain mets
and prior iHD was initiated as thought to be related to uremia but without any improvement. Denies any prior EGD in the past. Notes ongoing unintentional weight loss and white paste/chunks that he has been regurgitating but without any relief with
prior Nystatin or empiric Fluconazole as well as empiric PPI BID. Clinically, he is still having ongoing persistent symptoms and would benefit from a diagnostic EGD for further evaluation. Concern for esophageal candidiasis versus viral-induced
esophagitis (CMV vs HSV) versus erosive esophagitis versus malignancy given his known metastatic RCC versus prior uremia (although no improvement since prior iHD). However, if his EGD is unremarkable would consider replacement of DHT for enteral
nutrition. He wishes to avoid PEG placement at this time but did discuss potential PEG in future if his nutritional status remains poor along with minimal p.o intake. Will plan for diagnostic EGD with biopsies later today, 05/25/25, after dialysis.
Agree with rest of care as outlined below. See same day EGD report for additional findings and recommendations.
GI will continue to follow, please call with any questions/concerns. Discussed with primary internal medicine team.
Original Note:
Consultation
-
Date/Time Consultation Requested: 05/24/25 1430
Date/Time Consultation Performed: 05/25/25 0645
Requesting Provider: mayur Mosher MD
Performing Provider: LD Hernandez, Darrell Cesar DO
Reason for Consultation: nausea/vomiting decreased appetite
Medical History
Chief Complaint / HPI
Chief Complaint: dysphagia, wt loss
History of Present Illness:
Pt is a 49yo with hx metastatic renal cell CA with prior nephrectomy in December with transfer from [facility] to with prolonged stay with worsening soft tissue in spinal canal with stenosis, artery embolization ans spinal surgery complicated by wound
infection, dehiscence, MSSA bacteremia with placement of wound vac and treated with IV antibiotics. He did have DHT in place at some point but pulled out and has decreased oral intakes with dysphagia Pt has been on Diflucan and Nystatin without
improvement, Asked to see for complaints of dysphagia and decreased oral intakes.
In review with patient he admits to very dry mouth and feeling of food sticking in upper esophagus. He was also concerned as with cleaning out his mouth noted with whitish debris. He also admits to marked wt loss over several months with 17
kg loss since January per chart. He also admits to small amount of emesis without hematemesis. He denies odynophagia, GERD, abdominal pain, diarrhea, constipation, blood or black in stools. No hx EGD but had cologuard in July 2024 reports
negative.
Past Medical History
Past Medical History: Cancer (metastatic renal cell CA), Psychiatric (anxiety/depression) and Other (MSSA bacteremia, chronic pain with opioid use )
Past Surgical History: Urological (05/05 cysto with JJ stent placement ) and Other (left nephrectomy, left L1 and b/l L2 artery embolization, T12-L1 lami, copectomy and T11-L4 fusion, torocolumbar wound washout and closure, MSSA bacteremia )
Social History
Tobacco: Non-Smoker
Alcohol: None
Drug: None
Personal:
Living: With Family
Family History
Family History: Other (no family hx GI issue or colon CA)
Allergies / Home Medications
Allergy/AdvReac Type Severity Reaction Status Date / Time
No Known Allergies Allergy Verified 03/27/25 06:56
�Medication �Instructions �Recorded
Buproprion 50mg/5ml 10 ml feeding tube TID 05/06/25
Finasteride 5mg/5ml 5 ml feeding tube DAILY 05/06/25
acetaminophen 160 mg/5 mL (5 mL) 640 mg feeding tube Q4HPRN PRN 05/06/25
oral solution mild pain
ascorbic acid (vitamin C) 250 mg 250 mg feeding tube DAILY 05/06/25
tablet (Vitamin C)
baclofen 10 mg/5 mL (2 mg/mL) oral 5 mg feeding tube TIDPRN PRN 05/06/25
solution hiccups
bisacodyl 10 mg rectal suppository 10 mg SC DAILYPRN PRN constipation 05/06/25
(Dulcolax (bisacodyl))
calcium carbonate 1,000 mg PO Q8HPRN PRN heartburn 05/06/25
cefazolin 2 gram/20 mL in sterile 20 ml IV BID 05/06/25
water intravenous syringe
folic acid 1 mg tablet 1 mg feeding tube DAILY 05/06/25
heparin (porcine) 5,000 unit/mL 5,000 unit SC BID 05/06/25
injection syringe
insulin aspart U-100 100 unit/mL 0 - 6 sliding scale dose SC BID 05/06/25
subcutaneous solution
lansoprazole 15 mg delayed 15 mg feeding tube DAILY 05/06/25
release,disintegrating tablet
lidocaine 5 % topical patch 2 patch topical DAILY 05/06/25
lorazepam 0.5 mg tablet 0.5 mg PO TIDPRN PRN anixety 05/06/25
morphine 15 mg tablet,extended 15 mg PO Q12H 05/06/25
release (MS Contin)
ondansetron HCl (PF) 4 mg/2 mL 4 mg IM TID nausea 05/06/25
injection solution
oxybutynin chloride 5 mg tablet 5 mg PO TIDPRN PRN colic pain from 05/06/25
stent
oxycodone 5 mg/5 mL oral solution 5 mg PO Q4HPRN PRN severe pains 05/06/25
oxycodone 5 mg/5 mL oral solution 10 mg feeding tube Q4HPRN PRN 05/06/25
severe pain
phenol 1.4 % mucosal aerosol spray 1 spray mucous membrane Q2HPRN PRN 05/06/25
sore throat
polyethylene glycol 3350 17 gram 17 g feeding tube BID Constipation 05/06/25
oral powder packet (Miralax)
prochlorperazine edisylate 10 mg/2 10 mg IM Q6HPRN PRN nausea 05/06/25
mL (5 mg/mL) injection solution
scopolamine base 1 mg over 3 days 1 patch transdermal Q3D nausea 05/06/25
transdermal patch
sennosides 8.8 mg/5 mL oral syrup 17.6 mg feeding tube BID 05/06/25
(senna) Constipation
sodium citrate-citric acid 500 30 ml feeding tube BID 05/06/25
mg-334 mg/5 mL oral solution
thiamine HCl (vitamin B1) 100 mg 100 mg feeding tube DAILY 05/06/25
tablet Supplement
zinc oxide 40 % topical ointment 1 applic topical DAILYPRN PRN 05/06/25
damage skin
zinc sulfate 50 mg zinc (220 mg) 50 mg feeding tube DAILY 05/06/25
capsule
Review of Systems
-
History Source: Patient
Constitutional: Reports Weight Loss, Fatigue and Other
EENT: Reports Other (dysphagia, dry mouth )
Respiratory: Reports No Symptoms
Cardiac: Reports No Symptoms
Abdomen/GI: Reports Nausea and Vomiting
: Reports Other (on HD)
Musculoskeletal: Reports No Symptoms
Skin: Reports No Symptoms
Neurological: Reports Weakness
Endocrine: Reports No Symptoms
Hematologic/Lymphatic: Reports No Symptoms
Vital Signs
Temp Pulse Resp BP Pulse Ox
99.2 F 102 17 144/93 96
05/24/25 23:43 05/24/25 23:43 05/24/25 23:43 05/24/25 23:43 05/24/25 23:43
Physical Exam
Exam
General: Other (pale and thin appearing )
HEENT: Normocephalic and Anicteric
Respiratory: Clear
Cardiac: Regular Rhythm
GI: Soft, Non Tender and Non Distended
Musculoskeletal: No Clubbing and No Cyanosis
Skin: Warm and Other (back with incison and drains in place )
Neuro: Awake, Alert and AO x 3
Psych: Calm
Results
WBC 5.1 10^3/uL (4.8-10.8) 05/22/25 08:03
Hgb 8.2 g/dL (13.0-18.0) L 05/22/25 08:03
Hct 26.5 % (39.0-52.0) L 05/22/25 08:03
MCV 95.7 fL (80.0-94.0) H 05/22/25 08:03
Plt Count 207 10^3/uL (130-400) D 05/22/25 08:03
Absolute Neuts (auto) 3.4 10^3/uL (1.4-6.5) 05/22/25 08:03
Sodium 132 mmol/L (135-145) L 05/24/25 06:11
Potassium 3.1 mmol/L (3.5-5.1) L 05/24/25 06:11
Chloride 101 mmol/L (98-107) 05/24/25 06:11
Carbon Dioxide 26 mmol/L (22-30) 05/24/25 06:11
BUN 11 mg/dl (9-20) 05/24/25 06:11
Creatinine 2.7 mg/dL (0.7-1.3) H 05/24/25 06:11
Calcium 8.2 mg/dl (8.4-10.2) L 05/24/25 06:11
Total Bilirubin 0.3 mg/dl (0.2-1.3) 05/07/25 05:59
AST 15 U/L (17-59) L 05/07/25 05:59
ALT < 10 U/L (0-50) 05/07/25 05:59
Alkaline Phosphatase 114 U/L (38-126) 05/07/25 05:59
Hep Bs Antibody Positive 05/18/25 07:06
Hep B Core Total Ab Negative (Negative) 05/18/25 07:06
Hepatitis C Antibody Negative (Negative) 05/18/25 07:06
Diagnostic Image Results:
05/25/25 MR Brain W/o & With Contrast
1. No MRI evidence for intracranial metastatic disease.
2. 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
3. Low-lying cerebellar tonsils.
4. Moderate discogenic degenerative disease at C4/C5 and C5/C6 with small disc-osteophyte complexes causing mild spinal cord compression.
03/19/25 CT Abd/Pel (IV only)- only
Osseous metastases of the L1 and L2 vertebra, both with contiguous malignant extraosseous soft tissue invading the spinal canal and the left psoas muscle. Moderate pathologic compression fracture of L2. Malignant soft tissue in the spinal canal with
secondary severe spinal canal stenosis at L2, and mild spinal canal stenosis at L1.
Left nephrectomy for renal cell carcinoma.
Prior GI Procedures:
EGD: none
Colonoscopy: pt reports neg cologuard from July 2024
Assessment / Plan
-
Pt is a 49yo with hx metastatic renal cell CA with prior nephrectomy in December with transfer from [facility] to with prolonged stay with worsening soft tissue in spinal canal with stenosis, artery embolization ans spinal surgery complicated by wound
infection, dehiscence, MSSA bacteremia with placement of wound vac and treated with IV antibiotics. He did have DHT in place at some point but pulled out and has decreased oral intakes with dysphagia Pt has been on Diflucan and Nystatin without
improvement, Asked to see for complaints of dysphagia and decreased oral intakes. In review with patient he admits to very dry mouth and feeling of food sticking in upper esophagus. He was also concerned as with cleaning out his mouth noted with
whitish debris. He also admits to marked wt loss over several months with 17 kg loss since January per chart. He also admits to small amount of emesis without hematemesis. He denies odynophagia, GERD, abdominal pain, diarrhea, constipation, blood
or black in stools. No hx EGD but had cologuard in July 2024 reports negative.
-dysphagia
-wt loss with decreased appetite
-dry mouth
-severe calorie malnutrition
-metastatic renal cell CA s/p nephrectomy, spinal lesion with surgery/embolization complicated by wound infectioun, dehiscence, MSSA bacteremia
-hyponatremia/hypokalemia
-POLA now on HD
-s/p JJ stent 05/05/25
-anemia
-hypoalbuminemia
PLAN:
Etiology of dysphagia with wt loss related to vance infection, metastatic process vs other
plan for EGD today to exclude esophageal candidiasis, stricture, vs other
check INR to ensure ok with recent poor nutrition and repeat CBC prior to proceeding as last hbg 8.2 on 05/22
K and Na stable this am to proceed
NPO
reviewed risk and benefits with patient agreeable to proceed
I also discussed if EGD stable and nutrition remains poor replacement of DHT and eventual PEG if needed -- pt will consider options and agreeable to start with EGD for today
reviewed with nursing after EGD will need encouragement for diet and add supplement
remains on IV abx, Nystatin and IV diflucan
cont Miralax and senna bowel regiment
updated nursing staff
offered to call pt family - pt declined
-
-
Thank you for consultation and allowing me to participate in the patient's care. Please call the parcel contractor GI physician during the after hours with any questions or concerns.
[2025-05-25 07:30] VITALS: BP 130/91
[2025-05-25 07:31] LABS: Blood Urea Nitrogen 15 mg/dl (9-20); Calcium 8.4 mg/dl (8.4-10.2); Carbon Dioxide 23 mmol/L (22-30); Chloride 103 mmol/L (98-107); Estimated Creatinine Clearance 21 ml/min; Glucose 70 mg/dl (70-99); Potassium 3.5 mmol/L (3.5-5.1); Sodium 132 mmol/L (135-145); eGFR 22.57
--- NOTE | 2025-05-25 08:47 | W.PN.NEPH.HD ---
Assessment
-
Patient for HD
u/f set negative
daily HD evaluation
Progress Note - Hemodialysis
-
Date of Service: May 25, 2025
Duration: 3 hours
Potassium Bath: 4
Calcium Bath: 2.5
Opti-Dialyzer: 160
Ultrafiltration: Other (no u/f)
Blood Flow: 400
Dialysate Flow: 600
Heparin: none
EPO: 8000
[2025-05-25] MEDS: OASIS PO ×4 (09:08→22:46)
[2025-05-25] MEDS: PROSCAR PO (09:08)
[2025-05-25] MEDS: SENOKOT PO ×2 (09:08→20:26)
[2025-05-25] MEDS: THERAGRAN PO (09:08)
[2025-05-25] MEDS: VITAMIN B1 PO (09:09)
[2025-05-25] MEDS: VITAMIN C PO (09:09)
[2025-05-25] MEDS: WELLBUTRIN XL (24 hour extended release) PO (09:09)
[2025-05-25] MEDS: NOVOLOG FLEXPEN-LOW RESISTANCE SC ×2 (09:11→17:42)
[2025-05-25 09:19] LABS: Hematocrit 25.3 % (39.0-52.0); Hemoglobin 8.2 g/dL (13.0-18.0); Mean Corp Hgb Conc. 32.4 g/dL (33.0-37.0); Mean Corpuscular Volume 94.8 fL (80.0-94.0); Platelet Count 197 10^3/uL (130-400); Red Cell Dist. Width 19.7 % (11.5-14.5)
[2025-05-25 09:22] LABS: INR 1.69; PT 20.1 Sec (11.4-14.6)
[2025-05-25] MEDS: RETACRIT 8000 UNITS IV (09:51)
[2025-05-25 11:26] LABS: Glucose - Point of Care 79 mg/dl (70-99)
--- NOTE | 2025-05-25 11:30 | WOUNDNOTE ---
[facility] RN note: Notified Patricia at 08:45am via cell number from Dr. Heather Adkins's office re: patient still in hospital and [facility] Updated Dr. Michel; defer to hospitalist
if/when spine surgeon should see patient.
[2025-05-25] MEDS: HEPARIN 4900 UNITS INTRACATH (11:43)
[2025-05-25 12:43] VITALS: BP 130/91
[2025-05-25 12:45] VITALS: BP 81/63; BP 98/63
[2025-05-25 13:00] VITALS: BP 107/69
[2025-05-25 13:08] LABS: Glucose - Point of Care 77 mg/dl (70-99)
[2025-05-25] MEDS: MYCOSTATIN ORAL SUSPENSION PO (13:34)
[2025-05-25] MEDS: ANTIFUNGAL CLEAR 1 APPLIC TOPICAL ×2 (13:37→20:25)
[2025-05-25] MEDS: HEPARIN 5000 UNITS SC ×2 (13:37→20:25)
[2025-05-25] MEDS: DESENEX/MITRAZOL/ZEASORB 1 APPLIC TOPICAL ×2 (13:37→20:25)
[2025-05-25] MEDS: PROTONIX IV 40 MG IV ×2 (13:38→20:26)
[2025-05-25] MEDS: NSS (PRESERVATIVE FREE) 10 ML IV ×2 (13:38→20:26)
[2025-05-25] MEDS: ANCEF 10 IV ×2 (13:38→20:24)
[2025-05-25] MEDS: MYCOSTATIN ORAL SUSPENSION 5 ML PO ×3 (13:39→22:46)
[2025-05-25] MEDS: DIFLUCAN 200 MG 100 IV (14:48)
--- NOTE | 2025-05-25 15:39 | W.PN.HOSP.TC ---
Today's Communication/Plan
-
Continue antibiotics
Monitor oral intake
HD as per schedule
PT
Assessment / Plan
Assessment / Plan
49M with metastatic renal cell carcinoma who transferred from [facility] to following a prolonged hospitalization for worsening malignant soft tissue in the spinal canal with severe spinal stenosis, s/p artery embolization and spinal surgery, c/b spinal
wound infection with wound dehiscence and MSSA bacteremia s/p washout with placement of wound vac and treated with prolonged coarse of IV Ancef. Since transfer he has removed his DHT and refuses replacement, however has minimal po intake and is
deconditioned.
MSSA Bacteremia secondary to Spinal Infection
- Continue cefazolin 2gm q12h through Jun 10
- Will likely need chronic cefadroxil afterwards
- Follow-up schedule with ID at [place]
-Continue wound care.
�Bilateral JEEVAN drain, monitor output daily. Consider removing drains if output less than 30 mL in 2 consecutive days
�Wound VAC removed on May 11
Metastatic Renal Cell Carcinoma
met to Spinal Column Metastasis
s/p Left L1 & B/L L2 Segmental Artery Embolization (03/30/25); T12-L2 laminectomy, Left L1/2 corpectomy, T11-L4 fusion (03/31/25); Thoracolumbar Wound Washout with PRS closure (04/30/2025).
In review of recent PET/CT on 02/27/2025 there is also high FDG activity/pulmonary nodule left upper lobe.
oncology signed off, rec 'OP follow up with [facility] oncologist recommended after discharge to discuss systemic therapy options base on resolution of infection, renal function, nutritional status, and performance status.'
MRI of the brain, ordered with persistent nausea and emesis and concern for central symptoms, negative for intracranial disease.
Acute kidney injury
Elevated anion gap metabolic acidosis.
Status post left nephrectomy for RCC.
Obstructive uropathy with right JJ stent placed on 05/05/[address]25
Eldridge catheter in place.
repeat UA
Urine sodium 115
Noted with mild elevation of proteinase 3 at 36. Isolated with unknown significance. Unlikely vasculitis. Patient would be a poor candidate for renal biopsy due to solitary R kidney
Renal ultrasound -medical renal disease.
Appreciate nephrology input, dialysis started 05/18/25
Continue dialysis as per nephrology
Hypokalenmia
Follow and replete
Chronic normocytic anemia
Iron studies indicative of mild iron deficiency and anemia of chronic disease. Per heme/onc, no role for supplementation
Erythropoietin level of 4, low end of normal range.
Follow hemoglobin, transfuse if Hgb<7
Pain Management
-Patient previously on Morphine ER which was switched to Morphine IR when DHT was placed
-Patient had been refusing scheduled doses of narcotics
-Continue oxycodone PRN
Severe Protein Calorie Malnutrition
Persistent nausea with odynophagia
DHT placed at [place], has since been removed. Patient does not want it replaced.
Patient reports no swallowing issues, although with persistent nausea and vomiting and metallic taste preventing sufficient oral intake.
Persistent nausea and vomiting with minuscule oral intake possibly multifactorial in the settings of uremia. Opioids stopped.
Exam with no thrush in oral cavity, although initiated empirically on nystatin on 05/12. Cont biotene, chloraseptic spray
MRI of the brain with no evidence of intracranial metastatic disease leaning away from central nausea.
Some improvement of oral intake with initiation of hemodialysis hopefully indicative of possibly uremia contributing to symptoms.
Trial of Remeron and Zofran led to increased QTc. Discontinued. QTc improved
Concern for esophageal candidiasis
With persistent odynophagia will start empiric treatment with Diflucan.
Continue acid suppression increasing Protonix to 40 mg IV twice daily.
EGD 05/25 with no abnormalities.
Plan is to complete empiric treatment with Diflucan for 14 days and follow-up biopsy from EGD.
Vasovagal episode/presyncope on 05/20.
No focal findings on neurologic examination. Slight mild hypoglycemia with blood glucose of 74.
Monitor closely for hypotension.
Prolonged QTc
Stop Remeron and Zofran
Improved
Avoid QT prolonging medications
Stage I coccyx pressure injury present on admission. Continue care
Anxiety / Depression
-Continue bupropion
Deconditioning
-PM&R rec acute rehab once eating well or other nutrition plan in place
DVT proph: SC Heparin
Code Status: Full Code
Dispo - acute inpatient rehab
Total time spent to see the patient on the floor, examine the patient, review data and lab results, discuss treatment plan with patient, nursing staff around 50 minutes.
Anticipated Discharge: 24 - 48 hours
Subjective/Interval History
-
Date of Service: May 25, 2025
Objective Data
-
Labs:
Laboratory Results
05/25/25 05/25/25 05/25/25
05:46 08:39 08:56
WBC 5.2
Hgb 8.2 L
Hct 25.3 L
Plt Count 197
PT 20.1 H
INR 1.69
Sodium 132 L
Potassium 3.5
Chloride 103
Carbon Dioxide 23
BUN 15
Creatinine 3.2 H
Glucose 70
Calcium 8.4
Vital Signs:
Vital Signs
Temp Pulse Resp BP Pulse Ox
98.0 F 103 18 107/69 100
05/25/25 13:10 05/25/25 13:00 05/25/25 13:00 05/25/25 13:00 05/25/25 13:00
I&O
05/24/25 05/25/25 05/26/25
06:59 06:59 06:59
Intake Total 450 / 450 960 / 960 50 / 50
Output Total 925 / 925 610 / 610
Balance -475 / -475 350 / 350 50 / 50
Physical Exam
-
General: No Apparent Distress and Cachectic
HEENT: Normocephalic and Atraumatic; Negative Moist Mucous Membranes or Thrush
Respiratory: Clear to Auscultation; Negative Wheezes, Rales or Rhonchi
Cardiac: Regular Rhythm and S1/S2; Negative Murmur, Rub or Gallop
GI: Soft, Nontender, Nondistended and Normal Bowel Sounds; Negative Organomegaly
Genito-urinary: Eldridge
Musculoskeletal: No Clubbing, No Cyanosis, No Edema and Other (Bilateral paraspinal/T-spine level JEEVAN drain. )
Skin: Warm and Dry; Negative Rash
Neuro: Awake, Alert, Oriented, AO x 3, Tremors (Mild bilateral upper extremity resting tremor) and Nonfocal/Grossly Intact
Psych: Calm
[2025-05-25 16:20] VITALS: BP 118/86
[2025-05-25 17:21] LABS: Glucose - Point of Care 105 mg/dl (70-99)
[2025-05-25 21:12] LABS: Glucose - Point of Care 129 mg/dl (70-99)
[2025-05-25] MEDS: FLOMAX PO (22:46)
[2025-05-25 23:00] VITALS: BP 127/91
[2025-05-26 06:00] VITALS: BMI 17.3
[2025-05-26 07:42] VITALS: BP 138/93
[2025-05-26 07:51] LABS: Glucose - Point of Care 91 mg/dl (70-99)
[2025-05-26] MEDS: NOVOLOG FLEXPEN-LOW RESISTANCE SC ×3 (08:12→17:03)
[2025-05-26] MEDS: ANCEF 10 IV ×2 (08:40→20:16)
[2025-05-26] MEDS: HEPARIN 5000 UNITS SC ×2 (08:41→20:16)
[2025-05-26] MEDS: OASIS PO ×4 (08:42→21:13)
[2025-05-26] MEDS: MYCOSTATIN ORAL SUSPENSION 5 ML PO ×3 (08:42→21:33)
[2025-05-26] MEDS: SENOKOT PO ×2 (08:43→20:17)
[2025-05-26] MEDS: VITAMIN C PO (08:43)
[2025-05-26] MEDS: THERAGRAN PO (08:43)
[2025-05-26] MEDS: VITAMIN B1 PO (08:43)
[2025-05-26] MEDS: PROSCAR PO (08:43)
[2025-05-26] MEDS: WELLBUTRIN XL (24 hour extended release) PO (08:44)
[2025-05-26] MEDS: PROTONIX IV 40 MG IV ×2 (08:44→20:16)
[2025-05-26] MEDS: NSS (PRESERVATIVE FREE) 10 ML IV ×2 (08:44→20:16)
[2025-05-26] MEDS: DESENEX/MITRAZOL/ZEASORB 1 APPLIC TOPICAL ×2 (08:54→20:17)
[2025-05-26] MEDS: ANTIFUNGAL CLEAR 1 APPLIC TOPICAL ×2 (08:54→20:17)
[2025-05-26 10:57] LABS: Blood Urea Nitrogen 9 mg/dl (9-20); Calcium 7.8 mg/dl (8.4-10.2); Carbon Dioxide 24 mmol/L (22-30); Chloride 101 mmol/L (98-107); Estimated Creatinine Clearance 25 ml/min; Glucose 77 mg/dl (70-99); Potassium 3.4 mmol/L (3.5-5.1); Sodium 134 mmol/L (135-145); eGFR 28.95
[2025-05-26 11:33] LABS: Glucose - Point of Care 89 mg/dl (70-99)
--- NOTE | 2025-05-26 13:00 | PTCARENOTE ---
pt consumed only bites of lunch and began vomiting. PRN Compazine administered.
[2025-05-26] MEDS: DIFLUCAN 200 MG 100 IV (13:13)
[2025-05-26] MEDS: MYCOSTATIN ORAL SUSPENSION PO (13:14)
[2025-05-26] MEDS: COMPAZINE 5 MG IV (13:17)
--- NOTE | 2025-05-26 13:52 | W.PN.HOSP.TC ---
Today's Communication/Plan
-
Monitor oral intake
IV antibiotics
Empiric antifungal therapy for presumed esophageal candidiasis
Assessment / Plan
Assessment / Plan
49M with metastatic renal cell carcinoma who transferred from [facility] to following a prolonged hospitalization for worsening malignant soft tissue in the spinal canal with severe spinal stenosis, s/p artery embolization and spinal surgery, c/b spinal
wound infection with wound dehiscence and MSSA bacteremia s/p washout with placement of wound vac and treated with prolonged coarse of IV Ancef. Since transfer he has removed his DHT and refuses replacement, however has minimal po intake and is
deconditioned.
MSSA Bacteremia secondary to Spinal Infection
- Continue cefazolin 2gm q12h through Jun 10
- Will likely need chronic cefadroxil afterwards
- Follow-up schedule with ID at [facility]
-Continue wound care.
�Bilateral JEEVAN drain, monitor output daily. Consider removing drains if output less than 30 mL in 2 consecutive days
�Wound VAC removed on May 11
Metastatic Renal Cell Carcinoma
met to Spinal Column Metastasis
s/p Left L1 & B/L L2 Segmental Artery Embolization (03/30/25); T12-L2 laminectomy, Left L1/2 corpectomy, T11-L4 fusion (03/31/25); Thoracolumbar Wound Washout with PRS closure (04/30/2025).
In review of recent PET/CT on 02/27/2025 there is also high FDG activity/pulmonary nodule left upper lobe.
oncology signed off, rec 'OP follow up with [facility] oncologist recommended after discharge to discuss systemic therapy options base on resolution of infection, renal function, nutritional status, and performance status.'
MRI of the brain, ordered with persistent nausea and emesis and concern for central symptoms, negative for intracranial disease.
Acute kidney injury
Elevated anion gap metabolic acidosis.
Status post left nephrectomy for RCC.
Obstructive uropathy with right JJ stent placed on 05/05/2025
Eldridge catheter in place.
repeat UA
Urine sodium 115
Noted with mild elevation of proteinase 3 at 36. Isolated with unknown significance. Unlikely vasculitis. Patient would be a poor candidate for renal biopsy due to solitary R kidney
Renal ultrasound -medical renal disease.
Appreciate nephrology input, dialysis started 05/18/25
Continue dialysis as per nephrology
Hypokalenmia
Follow and replete
Chronic normocytic anemia
Iron studies indicative of mild iron deficiency and anemia of chronic disease. Per heme/onc, no role for supplementation
Erythropoietin level of 4, low end of normal range.
Follow hemoglobin, transfuse if Hgb<7
Pain Management
-Patient previously on Morphine ER which was switched to Morphine IR when DHT was placed
-Patient had been refusing scheduled doses of narcotics
-Continue oxycodone PRN
Severe Protein Calorie Malnutrition
Persistent nausea with odynophagia
DHT placed at [place], has since been removed. Patient does not want it replaced.
Patient reports no swallowing issues, although with persistent nausea and vomiting and metallic taste preventing sufficient oral intake.
Persistent nausea and vomiting with minuscule oral intake possibly multifactorial in the settings of uremia. Opioids stopped.
Exam with no thrush in oral cavity, although initiated empirically on nystatin on 05/12. Cont biotene, chloraseptic spray
MRI of the brain with no evidence of intracranial metastatic disease leaning away from central nausea.
Some improvement of oral intake with initiation of hemodialysis hopefully indicative of possibly uremia contributing to symptoms.
Trial of Remeron and Zofran led to increased QTc. Discontinued. QTc improved
Concern for esophageal candidiasis
With persistent odynophagia will start empiric treatment with Diflucan.
Continue acid suppression increasing Protonix to 40 mg IV twice daily.
EGD 05/25 with no abnormalities.
Plan is to complete empiric treatment with Diflucan for 14 days and follow-up biopsy from EGD.
Vasovagal episode/presyncope on 05/20.
No focal findings on neurologic examination. Slight mild hypoglycemia with blood glucose of 74.
Monitor closely for hypotension.
Prolonged QTc
Stop Remeron and Zofran
Improved
Avoid QT prolonging medications
Stage I coccyx pressure injury present on admission. Continue care
Anxiety / Depression
-Continue bupropion
Deconditioning
-PM&R rec acute rehab once eating well or other nutrition plan in place
DVT proph: SC Heparin
Code Status: Full Code
Dispo - acute inpatient rehab
Total time spent to see the patient on the floor, examine the patient, review data and lab results, discuss treatment plan with patient, nursing staff around 50 minutes.
Anticipated Discharge: 24 - 48 hours
Subjective/Interval History
-
Date of Service: May 26, 2025
Objective Data
-
Labs:
Laboratory Results
05/26/25
09:26
Sodium 134 L
Potassium 3.4 L
Chloride 101
Carbon Dioxide 24
BUN 9
Creatinine 2.6 H
Glucose 77
Calcium 7.8 L
Vital Signs:
Vital Signs
Temp Pulse Resp BP Pulse Ox
97.7 F 104 16 138/93 99
05/26/25 07:42 05/26/25 07:42 05/26/25 07:42 05/26/25 07:42 05/26/25 07:42
I&O
05/25/25 05/26/25 05/27/25
06:59 06:59 06:59
Intake Total 960 / 960 890 / 890 80 / 80
Output Total 610 / 610 890 / 890 365 / 365
Balance 350 / 350 0 / 0 -285 / -285
Physical Exam
-
General: No Apparent Distress and Cachectic
HEENT: Normocephalic and Atraumatic; Negative Moist Mucous Membranes or Thrush
Respiratory: Clear to Auscultation; Negative Wheezes, Rales or Rhonchi
Cardiac: Regular Rhythm and S1/S2; Negative Murmur, Rub or Gallop
GI: Soft, Nontender, Nondistended and Normal Bowel Sounds; Negative Organomegaly
Genito-urinary: Eldridge
Musculoskeletal: No Clubbing, No Cyanosis, No Edema and Other (Bilateral paraspinal/T-spine level JEEVAN drain. )
Skin: Warm and Dry; Negative Rash
Neuro: Awake, Alert, Oriented, AO x 3, Tremors (Mild bilateral upper extremity resting tremor) and Nonfocal/Grossly Intact
Psych: Calm
--- NOTE | 2025-05-26 13:52 | W.PN.NEPH.PH ---
Today's Communication / Plan
-
HD tomorrow
Assessment/Plan
-
IMP:
POLA
Metastatic Renal Cell Carcinoma with Spinal Column Metastasis and subsequent Spinal Infection s/p Left L1 & B/L L2 Segmental Artery Embolization (03/30/25); T12-L2 laminectomy, Left L1/2 corpectomy, T11-L4 fusion (03/31/25); Thoracolumbar Wound
Washout with PRS closure (04/30/2025).
recent PET/CT on 02/27/2025 there is also high FDG activity/pulmonary nodule left upper lobe.
MSSA Bacteremia secondary to Spinal Infection
Status post left nephrectomy for RCC.
Acute urine retention
Obstructive uropathy with right JJ stent placed on 05/05/2025
Elevated anion gap metabolic acidosis.
Chronic normocytic anemia
Severe Protein Calorie Malnutrition
Anxiety / Depression
Hyperalbuminemia
Plan:
HD initiated with concerning of ?uremia causing his nausea and decreased po intake
Dialysis tomorrow orders provided
he remains non oliguric with lovett
Diflucan started for suspected esophageal vance, pln endoscopy tomorrow?
Status post EGD: without impressive findings
-
-
Date of Service: May 26, 2025
CC / HPI / ROS
-
Chief Complaint:
POLA
History of Present Illness:
POLA/Cr HD started for ?uremia
Hgb stable 8.2 on 05/25
BP stable
k low 3.4
Review of Systems:
no CP/SOB
nonoliguric with lovett
Nausea , odynophagia no change
Labs
-
Labs:
WBC 5.2 10^3/uL (4.8-10.8) 05/25/25 08:39
RBC 2.67 10^6/uL (4.70-6.10) L 05/25/25 08:39
Hgb 8.2 g/dL (13.0-18.0) L 05/25/25 08:39
Hct 25.3 % (39.0-52.0) L 05/25/25 08:39
Plt Count 197 10^3/uL (130-400) 05/25/25 08:39
Sodium 134 mmol/L (135-145) L 05/26/25 09:26
Potassium 3.4 mmol/L (3.5-5.1) L 05/26/25 09:26
Chloride 101 mmol/L (98-107) 05/26/25 09:26
Carbon Dioxide 24 mmol/L (22-30) 05/26/25 09:26
BUN 9 mg/dl (9-20) 05/26/25 09:26
Creatinine 2.6 mg/dL (0.7-1.3) H 05/26/25 09:26
eGFR 28.95 05/26/25 09:26
Glucose 77 mg/dl (70-99) 05/26/25 09:26
Calcium 7.8 mg/dl (8.4-10.2) L 05/26/25 09:26
Phosphorus 2.9 mg/dl (2.5-4.5) 05/19/25 06:07
Albumin 2.3 g/dl (3.5-5.0) L 05/07/25 05:59
Physical Exam
-
Vital Signs:
Vital Signs
Temp Pulse Resp BP Pulse Ox
97.7 F 104 16 138/93 99
05/26/25 07:42 05/26/25 07:42 05/26/25 07:42 05/26/25 07:42 05/26/25 07:42
Cardiovascular:: Regular rate and rhythm
Respiratory:: Bilateral: CTA
Lung Excursion:: Normal
Abdomen:: Nontender and Soft
Bowel Sounds:: Normal
Extremity Edema:: None: Bilateral:
Lovett Catheter: Yes
[2025-05-26 14:36] VITALS: BP 126/90; BP 130/88; PULSE 102; O2SAT 99
[2025-05-26 15:00] VITALS: BP 124/93
[2025-05-26 15:23] VITALS: BP 126/90; BP 130/88; PULSE 100
[2025-05-26 16:22] VITALS: BP 124/93
--- NOTE | 2025-05-26 16:50 | CM ---
CM continues to follow for discharge planning. Anticipate transfer to [facility] [place].
Pt not stable for discharge at this time; will follow.
[2025-05-26 16:58] LABS: Glucose - Point of Care 80 mg/dl (70-99)
--- NOTE | 2025-05-26 20:47 | PTCARENOTE ---
pt transitioned to regular diet during day. Per pt and dayshift RN, pt unable to tolerate solid food. Pt still refusing oral medication. Education provided on importance of meds. Plan of care ongoing.
[2025-05-26] MEDS: FLOMAX PO (21:13)
[2025-05-26 22:02] LABS: Glucose - Point of Care 114 mg/dl (70-99)
[2025-05-26 23:00] VITALS: BP 149/87
[2025-05-26 23:29] VITALS: BMI 17.2
--- NOTE | 2025-05-27 03:28 | DOWNTIME ---
There was a [employer] Assistant Downtime on 05/27/2025 from 0100 to 05/27/2025 at 0255. Downtime documentation of patient's care, including medication administrations, has been reconciled in the electronic record per guidelines. Refer to the
patient's paper chart under the miscellaneous tab to see printed paper medication records and downtime forms.
[2025-05-27 07:00] VITALS: BP 132/87
[2025-05-27 07:53] LABS: Glucose - Point of Care 77 mg/dl (70-99)
[2025-05-27 08:15] LABS: Hematocrit 25.8 % (39.0-52.0); Hemoglobin 8.2 g/dL (13.0-18.0)
[2025-05-27 09:04] LABS: Blood Urea Nitrogen 13 mg/dl (9-20); Calcium 8.6 mg/dl (8.4-10.2); Carbon Dioxide 24 mmol/L (22-30); Chloride 104 mmol/L (98-107); Estimated Creatinine Clearance 20 ml/min; Glucose 74 mg/dl (70-99); Potassium 3.4 mmol/L (3.5-5.1); Sodium 137 mmol/L (135-145); eGFR 21.75
[2025-05-27] MEDS: RETACRIT 10000 UNITS IV (09:08)
[2025-05-27] MEDS: NOVOLOG FLEXPEN-LOW RESISTANCE SC ×3 (09:28→17:38)
[2025-05-27] MEDS: WELLBUTRIN XL (24 hour extended release) PO (09:37)
[2025-05-27] MEDS: VITAMIN C PO (09:38)
[2025-05-27] MEDS: VITAMIN B1 PO (09:38)
[2025-05-27] MEDS: THERAGRAN PO (09:38)
[2025-05-27] MEDS: SENOKOT PO ×2 (09:38→23:10)
[2025-05-27] MEDS: PROSCAR PO (09:39)
[2025-05-27] MEDS: OASIS PO ×4 (09:39→23:09)
[2025-05-27] MEDS: HEPARIN 3900 UNITS INTRACATH (10:51)
--- NOTE | 2025-05-27 10:55 | W.PN.NEPH.HD ---
Addendum entered and electronically signed by Corinna Holloway MD 05/27/25 11:02:
SBP was at 130during visit, will try IVF 500cc before completing HD
Original Note:
Assessment
-
pt seen during HD
vitals stable
but tachy-no symptoms
if persists check EKG_notified nurse and primary
no UF done
encourage po intake
CVC functions fine
Progress Note - Hemodialysis
-
Date of Service: May 27, 2025
Duration: 3 hours
Potassium Bath: 4
Calcium Bath: 2.5
Opti-Dialyzer: 160
Ultrafiltration: Other (0)
Blood Flow: 400
Dialysate Flow: 600
Heparin: no
EPO: 10526
[2025-05-27 11:51] LABS: Glucose - Point of Care 78 mg/dl (70-99)
--- NOTE | 2025-05-27 11:57 | WOUNDNOTE ---
SPINE INCISION (PROXIMAL)
--- NOTE | 2025-05-27 12:45 | WOUNDNOTE ---
[facility] RN note: Patient seen around 11:45am with RN Educator Judy Deluna. Sacrum blanchable red and intact. Skin on heels blanchable mild red and intact. Protective foam maintained on heels. Sacral shaped silicone border foam applied to sacrum.
Spine dressing changed. Upper 1/2 of incision with some scattered dull red skin and a small superficial pink open area, same as last week. No drainage on dressing. Xeroform gauze applied to small superficial open section and entire sutured incision
covered with silicone border foam (trimmed distal adhesive portion to avoid sutures while overlapping foam dressings to cover entire long spine incision). Waffle air overlay mattress in place with proper inflation. Patient turns self in bed. Heels
off bed with pillow. Air chair cushion in room. Po intake remains poor. Updated Dr. Michel and showed hospitalist picture of spine incision. Dr. Michel approved updating local care to changing spine incisional dressing every other day. Care plan
to be updated. Defer to hospitalist if/when to consult surgeon for back suture removal and if and when JEEVAN drains should be pulled. JEEVAN dressings intact. JEEVAN drain site without erythema. Encouraged patient to turn side to side and avoid/minimize lying
directly on his back. Patient verbalized understanding. Will follow as needed.
--- NOTE | 2025-05-27 12:45 | WOUNDNOTE ---
[facility] RN note: Patient seen around 11:45am with RN Educator Judy Deluna. Sacrum blanchable red and intact. Skin on heels blanchable mild red and intact. Protective foam maintained on heels. Sacral shaped silicone border foam applied to sacrum.
Spine dressing changed. Upper 1/2 of incision with some scattered dull red skin and a small superficial pink open area, same as last week. No drainage on dressing. Xeroform gauze applied to small superficial open section and entire sutured incision
covered with silicone border foam (trimmed distal adhesive portion to avoid sutures while overlapping foam dressings to cover entire long spine incision). Waffle air overlay mattress in place with proper inflation. Patient turns self in bed. He is
staying on his L side currently. Air chair cushion in room. Po intake remains poor. Updated Dr. Michel and showed hospitalist picture of spine incision. Dr. Michel approved updating local care to changing spine incisional dressing every other
day. Care plan to be updated. Defer to hospitalist if/when to consult surgeon for back suture removal and if and when JEEVAN drains should be pulled. JEEVAN dressings intact. JEEVAN drain site without erythema. Encouraged patient to turn side to side and
avoid/minimize lying directly on his back. Patient verbalized understanding. Will follow as needed.
[2025-05-27] MEDS: NSS (PRESERVATIVE FREE) 10 ML IV ×2 (12:57→22:30)
[2025-05-27] MEDS: DIFLUCAN 200 MG 100 IV (12:57)
[2025-05-27] MEDS: ANTIFUNGAL CLEAR 1 APPLIC TOPICAL ×2 (12:58→23:10)
[2025-05-27] MEDS: PROTONIX IV 40 MG IV ×2 (12:58→22:30)
[2025-05-27] MEDS: DESENEX/MITRAZOL/ZEASORB 1 APPLIC TOPICAL ×2 (12:59→23:10)
[2025-05-27] MEDS: MYCOSTATIN ORAL SUSPENSION PO (12:59)
[2025-05-27] MEDS: MYCOSTATIN ORAL SUSPENSION 5 ML PO ×3 (12:59→22:30)
[2025-05-27] MEDS: HEPARIN 5000 UNITS SC ×2 (13:00→23:08)
--- NOTE | 2025-05-27 14:13 | W.PN.HOSP.TC ---
Today's Communication/Plan
-
Sinus tachycardia at HD on 05/27
Asymptomatic
ECG sinus tach
Monitor on telemetry
Check BNP
Check echo
Check peripheral ultrasound
Follow response to fluid bolus after HD
Assessment / Plan
Assessment / Plan
49M with metastatic renal cell carcinoma who transferred from [facility] to following a prolonged hospitalization for worsening malignant soft tissue in the spinal canal with severe spinal stenosis, s/p artery embolization and spinal surgery, c/b spinal
wound infection with wound dehiscence and MSSA bacteremia s/p washout with placement of wound vac and treated with prolonged coarse of IV Ancef. Since transfer he has removed his DHT and refuses replacement, however has minimal po intake and is
deconditioned.
MSSA Bacteremia secondary to Spinal Infection
- Continue cefazolin 2gm q12h through Jun 10
- Will likely need chronic cefadroxil afterwards
- Follow-up schedule with ID at [place]
-Continue wound care.
�Bilateral JEEVAN drain, monitor output daily. Consider removing drains if output less than 30 mL in 2 consecutive days
�Wound VAC removed on May 11
Metastatic Renal Cell Carcinoma
met to Spinal Column Metastasis
s/p Left L1 & B/L L2 Segmental Artery Embolization (03/30/25); T12-L2 laminectomy, Left L1/2 corpectomy, T11-L4 fusion (03/31/25); Thoracolumbar Wound Washout with PRS closure (04/30/2025).
In review of recent PET/CT on 02/27/2025 there is also high FDG activity/pulmonary nodule left upper lobe.
oncology signed off, rec 'OP follow up with [facility] oncologist recommended after discharge to discuss systemic therapy options base on resolution of infection, renal function, nutritional status, and performance status.'
MRI of the brain, ordered with persistent nausea and emesis and concern for central symptoms, negative for intracranial disease.
Acute kidney injury
Elevated anion gap metabolic acidosis.
Status post left nephrectomy for RCC.
Obstructive uropathy with right JJ stent placed on 05/05/2025
Eldridge catheter in place.
repeat UA
Urine sodium 115
Noted with mild elevation of proteinase 3 at 36. Isolated with unknown significance. Unlikely vasculitis. Patient would be a poor candidate for renal biopsy due to solitary R kidney
Renal ultrasound -medical renal disease.
Appreciate nephrology input, dialysis started 05/18/25
Continue dialysis as per nephrology
Hypokalenmia
Follow and replete
Chronic normocytic anemia
Iron studies indicative of mild iron deficiency and anemia of chronic disease. Per heme/onc, no role for supplementation
Erythropoietin level of 4, low end of normal range.
Follow hemoglobin, transfuse if Hgb<7
Pain Management
-Patient previously on Morphine ER which was switched to Morphine IR when DHT was placed
-Patient had been refusing scheduled doses of narcotics
-Continue oxycodone PRN
Severe Protein Calorie Malnutrition
Persistent nausea with odynophagia
DHT placed at [place], has since been removed. Patient does not want it replaced.
Patient reports no swallowing issues, although with persistent nausea and vomiting and metallic taste preventing sufficient oral intake.
Persistent nausea and vomiting with minuscule oral intake possibly multifactorial in the settings of uremia. Opioids stopped.
Exam with no thrush in oral cavity, although initiated empirically on nystatin on 05/12. Cont biotene, chloraseptic spray
MRI of the brain with no evidence of intracranial metastatic disease leaning away from central nausea.
Some improvement of oral intake with initiation of hemodialysis hopefully indicative of possibly uremia contributing to symptoms.
Trial of Remeron and Zofran led to increased QTc. Discontinued. QTc improved
Concern for esophageal candidiasis
With persistent odynophagia will start empiric treatment with Diflucan.
Continue acid suppression increasing Protonix to 40 mg IV twice daily.
EGD 05/25 with no abnormalities.
Plan is to complete empiric treatment with Diflucan for 14 days and follow-up biopsy from EGD.
Vasovagal episode/presyncope on 05/20.
No focal findings on neurologic examination. Slight mild hypoglycemia with blood glucose of 74.
Monitor closely for hypotension.
Sinus tachycardia at HD on 05/27
Asymptomatic
ECG sinus tach
Monitor on telemetry
Check BNP
Check echo
Check peripheral ultrasound
Follow response to fluid bolus after HD
Prolonged QTc
Stop Remeron and Zofran
Improved
Avoid QT prolonging medications
Stage I coccyx pressure injury present on admission. Continue care
Anxiety / Depression
-Continue bupropion
Deconditioning
-PM&R rec acute rehab once eating well or other nutrition plan in place
DVT proph: SC Heparin
Code Status: Full Code
Dispo - acute inpatient rehab
Total time spent to see the patient on the floor, examine the patient, review data and lab results, discuss treatment plan with patient, nursing staff around 50 minutes.
Anticipated Discharge: > 48 hours
Subjective/Interval History
-
Date of Service: May 27, 2025
Objective Data
-
Labs:
Laboratory Results
05/27/25
07:42
Hgb 8.2 L
Hct 25.8 L
Sodium 137
Potassium 3.4 L
Chloride 104
Carbon Dioxide 24
BUN 13
Creatinine 3.3 H
Glucose 74
Calcium 8.6
Vital Signs:
Vital Signs
Temp Pulse Resp BP Pulse Ox
97.5 F 95 16 132/87 99
05/27/25 07:00 05/27/25 07:00 05/27/25 07:00 05/27/25 07:00 05/27/25 07:00
I&O
05/26/25 05/27/25 05/28/25
06:59 06:59 06:59
Intake Total 890 / 890 80 / 80
Output Total 890 / 890 715 / 715
Balance 0 / 0 -635 / -635
Physical Exam
-
General: No Apparent Distress and Cachectic
HEENT: Normocephalic and Atraumatic; Negative Moist Mucous Membranes or Thrush
Respiratory: Clear to Auscultation; Negative Wheezes, Rales or Rhonchi
Cardiac: Regular Rhythm and S1/S2; Negative Murmur, Rub or Gallop
GI: Soft, Nontender, Nondistended and Normal Bowel Sounds; Negative Organomegaly
Genito-urinary: Eldridge
Musculoskeletal: No Clubbing, No Cyanosis, No Edema and Other (Bilateral paraspinal/T-spine level JEEVAN drain. )
Skin: Warm and Dry; Negative Rash
Neuro: Awake, Alert, Oriented, AO x 3, Tremors (Mild bilateral upper extremity resting tremor) and Nonfocal/Grossly Intact
Psych: Calm
--- NOTE | 2025-05-27 15:23 | WOUNDNOTE ---
[facility] RN Note: t/c Spoke with ROBERT Gomez at Dr. Heather Liang's office (plastics) and gave back incision and JEEVAN drain update. Patricia confirmed to change JEEVAN dressings using drainage sponge, cover with silicone border foam, change q 3 days and prn and
confirmed for spine incision to apply Xeroform to any open area and cover with silicone border foam, change q 3 days and prn loosened dressing. Patricia requested consulting Plastics for drain removal. Informed Patricia will pass onto hospitalist. Noble
texted Dr. Michel update who responded will see about consulting plastics. JEEVAN drain dressing and spine dressing order updated. Noble texted ROBERT Deluna update.
[2025-05-27 16:38] LABS: Glucose - Point of Care 107 mg/dl (70-99)
[2025-05-27] MEDS: ANCEF 10 IV (17:47)
[2025-05-27 20:57] LABS: Glucose - Point of Care 116 mg/dl (70-99)
[2025-05-27 23:00] VITALS: BP 137/94
[2025-05-27] MEDS: FLOMAX PO (23:09)
--- NOTE | 2025-05-28 00:55 | PTCARENOTE ---
LATE NOTE DUE TO PT CARE:
PT STATES THAT HE DOES NOT TAKE THE ORAL MEDICATIONS. PT ACCEPTED THE MOUTHWASH. SEE MAR MEDICATION DETAILS.
[2025-05-28 03:03] VITALS: BMI 17.8
[2025-05-28 03:16] VITALS: BP 134/92
[2025-05-28 07:00] VITALS: BP 135/93
[2025-05-28 07:36] LABS: Glucose - Point of Care 89 mg/dl (70-99)
[2025-05-28] MEDS: NSS (PRESERVATIVE FREE) 10 ML IV ×2 (08:13→20:40)
[2025-05-28] MEDS: PROTONIX IV 40 MG IV ×2 (08:13→20:40)
[2025-05-28] MEDS: HEPARIN 5000 UNITS SC ×2 (08:14→20:39)
[2025-05-28] MEDS: SENOKOT PO ×2 (08:14→20:42)
[2025-05-28] MEDS: MYCOSTATIN ORAL SUSPENSION 5 ML PO ×3 (08:15→17:12)
[2025-05-28] MEDS: VITAMIN C PO (08:15)
[2025-05-28] MEDS: PROSCAR PO (08:16)
[2025-05-28] MEDS: WELLBUTRIN XL (24 hour extended release) PO (08:16)
[2025-05-28] MEDS: THERAGRAN PO (08:16)
[2025-05-28] MEDS: VITAMIN B1 PO (08:16)
[2025-05-28] MEDS: OASIS PO ×4 (08:16→21:08)
[2025-05-28] MEDS: NOVOLOG FLEXPEN-LOW RESISTANCE SC ×3 (08:17→16:33)
[2025-05-28] MEDS: ANTIFUNGAL CLEAR 1 APPLIC TOPICAL ×2 (08:17→20:40)
[2025-05-28] MEDS: DESENEX/MITRAZOL/ZEASORB 1 APPLIC TOPICAL ×2 (08:18→20:41)
--- NOTE | 2025-05-28 11:19 | W.PN.HOSP.TC ---
Today's Communication/Plan
-
Lung scan
Telemetry monitoring
IV antibiotics
Hemodialysis as per schedule
Assessment / Plan
Assessment / Plan
49M with metastatic renal cell carcinoma who transferred from [facility] to following a prolonged hospitalization for worsening malignant soft tissue in the spinal canal with severe spinal stenosis, s/p artery embolization and spinal surgery, c/b spinal
wound infection with wound dehiscence and MSSA bacteremia s/p washout with placement of wound vac and treated with prolonged coarse of IV Ancef. Since transfer he has removed his DHT and refuses replacement, however has minimal po intake and is
deconditioned.
MSSA Bacteremia secondary to Spinal Infection
- Continue cefazolin 2gm q12h through Jun 10
- Will likely need chronic cefadroxil afterwards
- Follow-up schedule with ID at [place]
-Continue wound care.
�Bilateral JEEVAN drain, monitor output daily. Consider removing drains if output less than 30 mL in 2 consecutive days
�Wound VAC removed on May 11
Metastatic Renal Cell Carcinoma
met to Spinal Column Metastasis
s/p Left L1 & B/L L2 Segmental Artery Embolization (03/30/25); T12-L2 laminectomy, Left L1/2 corpectomy, T11-L4 fusion (03/31/25); Thoracolumbar Wound Washout with PRS closure (04/30/2025).
In review of recent PET/CT on 02/27/2025 there is also high FDG activity/pulmonary nodule left upper lobe.
oncology signed off, rec 'OP follow up with [facility] oncologist recommended after discharge to discuss systemic therapy options base on resolution of infection, renal function, nutritional status, and performance status.'
MRI of the brain, ordered with persistent nausea and emesis and concern for central symptoms, negative for intracranial disease.
Acute kidney injury
Elevated anion gap metabolic acidosis.
Status post left nephrectomy for RCC.
Obstructive uropathy with right JJ stent placed on 05/05/2025
Eldridge catheter in place.
repeat UA
Urine sodium 115
Noted with mild elevation of proteinase 3 at 36. Isolated with unknown significance. Unlikely vasculitis. Patient would be a poor candidate for renal biopsy due to solitary R kidney
Renal ultrasound -medical renal disease.
Appreciate nephrology input, dialysis started 05/18/25
Continue dialysis as per nephrology
Hypokalenmia
Follow and replete
Chronic normocytic anemia
Iron studies indicative of mild iron deficiency and anemia of chronic disease. Per heme/onc, no role for supplementation
Erythropoietin level of 4, low end of normal range.
Follow hemoglobin, transfuse if Hgb<7
Pain Management
-Patient previously on Morphine ER which was switched to Morphine IR when DHT was placed
-Patient had been refusing scheduled doses of narcotics
-Continue oxycodone PRN
Severe Protein Calorie Malnutrition
Persistent nausea with odynophagia
DHT placed at [place], has since been removed. Patient does not want it replaced.
Patient reports no swallowing issues, although with persistent nausea and vomiting and metallic taste preventing sufficient oral intake.
Persistent nausea and vomiting with minuscule oral intake possibly multifactorial in the settings of uremia. Opioids stopped.
Exam with no thrush in oral cavity, although initiated empirically on nystatin on 05/12. Cont biotene, chloraseptic spray
MRI of the brain with no evidence of intracranial metastatic disease leaning away from central nausea.
Some improvement of oral intake with initiation of hemodialysis hopefully indicative of possibly uremia contributing to symptoms.
Trial of Remeron and Zofran led to increased QTc. Discontinued. QTc improved
Concern for esophageal candidiasis
With persistent odynophagia will start empiric treatment with Diflucan.
Continue acid suppression increasing Protonix to 40 mg IV twice daily.
EGD 05/25 with no abnormalities.
Plan is to complete empiric treatment with Diflucan for 14 days and follow-up biopsy from EGD.
Vasovagal episode/presyncope on 05/20.
No focal findings on neurologic examination. Slight mild hypoglycemia with blood glucose of 74.
Monitor closely for hypotension.
Sinus tachycardia at HD on 05/27
Asymptomatic
ECG sinus tach
Monitor on telemetry
Pro CHF BNP mildly elevated at 790
Echocardiogram with preserved biventricular function and no evidence for RV strain
Lower extremity Dopplers negative
Globin has been stable above 8
Given persistent tachycardia at rest will check lung scan (unable to perform CTA given POLA)
Prolonged QTc
Stop Remeron and Zofran
Improved
Avoid QT prolonging medications
Stage I coccyx pressure injury present on admission. Continue care
Anxiety / Depression
-Continue bupropion
Deconditioning
-PM&R rec acute rehab once eating well or other nutrition plan in place
DVT proph: SC Heparin
Code Status: Full Code
Dispo - acute inpatient rehab
Anticipated Discharge: 24 - 48 hours
Subjective/Interval History
-
Date of Service: May 28, 2025
Objective Data
-
Vital Signs:
Vital Signs
Temp Pulse Resp BP Pulse Ox
98.0 F 104 16 135/93 99
05/28/25 07:00 05/28/25 07:00 05/28/25 07:00 05/28/25 07:00 05/28/25 07:00
I&O
05/27/25 05/28/25 05/29/25
06:59 06:59 06:59
Intake Total 80 / 80 840 / 840
Output Total 715 / 715 985 / 985
Balance -635 / -635 -145 / -145
Physical Exam
-
General: No Apparent Distress and Cachectic
HEENT: Normocephalic and Atraumatic; Negative Moist Mucous Membranes or Thrush
Respiratory: Clear to Auscultation; Negative Wheezes, Rales or Rhonchi
Cardiac: Regular Rhythm and S1/S2; Negative Murmur, Rub or Gallop
GI: Soft, Nontender, Nondistended and Normal Bowel Sounds; Negative Organomegaly
Genito-urinary: Eldridge
Musculoskeletal: No Clubbing, No Cyanosis, No Edema and Other (Bilateral paraspinal/T-spine level JEEVAN drain. )
Skin: Warm and Dry; Negative Rash
Neuro: Awake, Alert, Oriented, AO x 3, Tremors (Mild bilateral upper extremity resting tremor) and Nonfocal/Grossly Intact
Psych: Calm
[2025-05-28 11:51] LABS: Glucose - Point of Care 110 mg/dl (70-99)
[2025-05-28] MEDS: DIFLUCAN 200 MG 100 IV (12:07)
--- NOTE | 2025-05-28 13:02 | W.PN.NEPH.PH ---
Today's Communication / Plan
-
HD tomorrow
Assessment/Plan
-
IMP:
POLA
Metastatic Renal Cell Carcinoma with Spinal Column Metastasis and subsequent Spinal Infection s/p Left L1 & B/L L2 Segmental Artery Embolization (03/30/25); T12-L2 laminectomy, Left L1/2 corpectomy, T11-L4 fusion (03/31/25); Thoracolumbar Wound
Washout with PRS closure (04/30/2025).
recent PET/CT on 02/27/2025 there is also high FDG activity/pulmonary nodule left upper lobe.
MSSA Bacteremia secondary to Spinal Infection
Status post left nephrectomy for RCC.
Acute urine retention
Obstructive uropathy with right JJ stent placed on 05/05/2025
Elevated anion gap metabolic acidosis.
Chronic normocytic anemia
Severe Protein Calorie Malnutrition
Anxiety / Depression
Hyperalbuminemia
Plan:
HD initiated with concerning of ?uremia causing his nausea and decreased po intake
Dialysis tomorrow
he remains non oliguric with lovett
Diflucan started for suspected esophageal vance
nausea seem little better today
hemodynamically stable
-
-
Date of Service: May 28, 2025
CC / HPI / ROS
-
Chief Complaint:
POLA
History of Present Illness:
POLA/Cr HD started for ?uremia
Hgb stable 8.2 on 05/27
BP stable
Review of Systems:
no CP/SOB
nonoliguric with lovett
Nausea , odynophagia improving
Labs
-
Labs:
WBC 5.2 10^3/uL (4.8-10.8) 05/25/25 08:39
RBC 2.67 10^6/uL (4.70-6.10) L 05/25/25 08:39
Hgb 8.2 g/dL (13.0-18.0) L 05/27/25 07:42
Hct 25.8 % (39.0-52.0) L 05/27/25 07:42
Plt Count 197 10^3/uL (130-400) 05/25/25 08:39
Sodium 137 mmol/L (135-145) 05/27/25 07:42
Potassium 3.4 mmol/L (3.5-5.1) L 05/27/25 07:42
Chloride 104 mmol/L (98-107) 05/27/25 07:42
Carbon Dioxide 24 mmol/L (22-30) 05/27/25 07:42
BUN 13 mg/dl (9-20) 05/27/25 07:42
Creatinine 3.3 mg/dL (0.7-1.3) H 05/27/25 07:42
eGFR 21.75 05/27/25 07:42
Glucose 74 mg/dl (70-99) 05/27/25 07:42
Calcium 8.6 mg/dl (8.4-10.2) 05/27/25 07:42
Phosphorus 2.9 mg/dl (2.5-4.5) 05/19/25 06:07
Fil-M-Brbyymtvrre Pept Cancelled 05/27/25 12:44
Albumin 2.3 g/dl (3.5-5.0) L 05/07/25 05:59
Physical Exam
-
Vital Signs:
Vital Signs
Temp Pulse Resp BP Pulse Ox
98.0 F 104 16 135/93 99
05/28/25 07:00 05/28/25 07:00 05/28/25 07:00 05/28/25 07:00 05/28/25 07:00
Cardiovascular:: Regular rate and rhythm
Respiratory:: Bilateral: CTA
Lung Excursion:: Normal
Abdomen:: Nontender and Soft
Bowel Sounds:: Normal
Extremity Edema:: None: Bilateral:
Lovett Catheter: Yes
[2025-05-28 15:03] VITALS: BP 133/88
[2025-05-28 16:30] LABS: Glucose - Point of Care 125 mg/dl (70-99)
[2025-05-28] MEDS: ANCEF 10 IV (17:09)
[2025-05-28 19:00] VITALS: BP 130/88
[2025-05-28] MEDS: FLOMAX PO (21:08)
[2025-05-28] MEDS: MYCOSTATIN ORAL SUSPENSION PO (21:08)
[2025-05-28 21:23] LABS: Glucose - Point of Care 83 mg/dl (70-99)
[2025-05-28 23:23] VITALS: BP 147/80
[2025-05-29] VITALS (9 sets, daily range): BP systolic 70–144; BP diastolic 48–98; PULSE 109–112; O2SAT 99; BMI 17.4
[2025-05-29 07:19] LABS: Glucose - Point of Care 75 mg/dl (70-99)
[2025-05-29 08:39] LABS: Hematocrit 26.7 % (39.0-52.0); Hemoglobin 8.4 g/dL (13.0-18.0); Mean Corp Hgb Conc. 31.5 g/dL (33.0-37.0); Mean Corpuscular Volume 96.7 fL (80.0-94.0); Platelet Count 223 10^3/uL (130-400); Red Cell Dist. Width 19.5 % (11.5-14.5)
--- NOTE | 2025-05-29 08:55 | W.PN.NEPH.HD ---
Assessment
-
Patient seen on dialysis
Systolic blood pressure stable at 137 at even ultrafiltration
Next dialysis will be Sunday
Progress Note - Hemodialysis
-
Date of Service: May 29, 2025
Duration: 30 minutes and 3 hours
Potassium Bath: 4
Calcium Bath: 2.5
Opti-Dialyzer: 160
Ultrafiltration: Other (Even)
Blood Flow: 400
Dialysate Flow: 600
Heparin: None
EPO: 10K
[2025-05-29] MEDS: RETACRIT 10000 UNITS IV (09:43)
[2025-05-29 09:49] LABS: Albumin 2.7 g/dl (3.5-5.0); Blood Urea Nitrogen 10 mg/dl (9-20); Calcium 8.5 mg/dl (8.4-10.2); Carbon Dioxide 25 mmol/L (22-30); Chloride 103 mmol/L (98-107); Estimated Creatinine Clearance 21 ml/min; Glucose 94 mg/dl (70-99); Potassium 3.4 mmol/L (3.5-5.1); Sodium 136 mmol/L (135-145); eGFR 23.44
[2025-05-29] MEDS: NOVOLOG FLEXPEN-LOW RESISTANCE SC ×3 (09:59→16:29)
[2025-05-29 11:52] LABS: Glucose - Point of Care 88 mg/dl (70-99)
[2025-05-29] MEDS: ANTIFUNGAL CLEAR 1 APPLIC TOPICAL ×2 (12:03→21:47)
[2025-05-29] MEDS: DESENEX/MITRAZOL/ZEASORB 1 APPLIC TOPICAL ×2 (12:04→21:47)
[2025-05-29] MEDS: HEPARIN 5000 UNITS SC ×2 (12:07→21:45)
[2025-05-29] MEDS: MYCOSTATIN ORAL SUSPENSION 5 ML PO ×4 (12:07→21:50)
[2025-05-29] MEDS: PROTONIX IV 40 MG IV ×2 (12:09→21:48)
[2025-05-29] MEDS: NSS (PRESERVATIVE FREE) 10 ML IV ×2 (12:09→21:49)
[2025-05-29] MEDS: PROSCAR PO (12:09)
[2025-05-29] MEDS: SENOKOT PO ×2 (12:10→21:51)
[2025-05-29] MEDS: VITAMIN C PO (12:10)
[2025-05-29] MEDS: THERAGRAN PO (12:10)
[2025-05-29] MEDS: WELLBUTRIN XL (24 hour extended release) PO (12:10)
[2025-05-29] MEDS: CHLORASEPTIC/SORE THROAT SPRAY 1 SPRAY PO (12:11)
[2025-05-29] MEDS: VITAMIN B1 PO (12:11)
[2025-05-29] MEDS: OASIS PO ×4 (12:21→21:51)
[2025-05-29] MEDS: DIFLUCAN 200 MG 100 IV (13:17)
--- NOTE | 2025-05-29 14:22 | W.PN.HOSP.TC ---
Today's Communication/Plan
-
Patient reports less nausea and improving oral intake. Monitor
Continue IV antibiotics
Continue wound care
Remains with 2 paraspinal JEEVAN drain. Asking plastic surgery to evaluate and possibly remove. Discussed with primary plastic surgery at [facility].
HD
Physical therapy evaluate
Assessment / Plan
Assessment / Plan
49M with metastatic renal cell carcinoma who transferred from [facility] to following a prolonged hospitalization for worsening malignant soft tissue in the spinal canal with severe spinal stenosis, s/p artery embolization and spinal surgery, c/b spinal
wound infection with wound dehiscence and MSSA bacteremia s/p washout with placement of wound vac and treated with prolonged coarse of IV Ancef. Since transfer he has removed his DHT and refuses replacement, however has minimal po intake and is
deconditioned.
MSSA Bacteremia secondary to Spinal Infection
- Continue cefazolin 2gm q12h through Jun 10
- Will likely need chronic cefadroxil afterwards
- Follow-up schedule with ID at [place]
-Continue wound care.
�Bilateral JEEVAN drain, monitor output daily. Consider removing drains if output less than 30 mL in 2 consecutive days.
�Wound VAC removed on May 11
Metastatic Renal Cell Carcinoma
met to Spinal Column Metastasis
s/p Left L1 & B/L L2 Segmental Artery Embolization (03/30/25); T12-L2 laminectomy, Left L1/2 corpectomy, T11-L4 fusion (03/31/25); Thoracolumbar Wound Washout with PRS closure (04/30/2025).
In review of recent PET/CT on 02/27/2025 there is also high FDG activity/pulmonary nodule left upper lobe.
oncology signed off, rec 'OP follow up with [facility] oncologist recommended after discharge to discuss systemic therapy options base on resolution of infection, renal function, nutritional status, and performance status.'
MRI of the brain, ordered with persistent nausea and emesis and concern for central symptoms, negative for intracranial disease.
Acute kidney injury
Elevated anion gap metabolic acidosis.
Status post left nephrectomy for RCC.
Obstructive uropathy with right JJ stent placed on 05/05/2025
Eldridge catheter in place.
repeat UA
Urine sodium 115
Noted with mild elevation of proteinase 3 at 36. Isolated with unknown significance. Unlikely vasculitis. Patient would be a poor candidate for renal biopsy due to solitary R kidney
Renal ultrasound -medical renal disease.
Appreciate nephrology input, dialysis started 05/18/25
Continue dialysis as per nephrology
Hypokalenmia
Follow and replete
Chronic normocytic anemia
Iron studies indicative of mild iron deficiency and anemia of chronic disease. Per heme/onc, no role for supplementation
Erythropoietin level of 4, low end of normal range.
Follow hemoglobin, transfuse if Hgb<7
Pain Management
-Patient previously on Morphine ER which was switched to Morphine IR when DHT was placed
-Patient had been refusing scheduled doses of narcotics
-Continue oxycodone PRN
Severe Protein Calorie Malnutrition
Persistent nausea with odynophagia
DHT placed at [place], has since been removed. Patient does not want it replaced.
Patient reports no swallowing issues, although with persistent nausea and vomiting and metallic taste preventing sufficient oral intake.
Persistent nausea and vomiting with minuscule oral intake possibly multifactorial in the settings of uremia. Opioids stopped.
Exam with no thrush in oral cavity, although initiated empirically on nystatin on 05/12. Cont biotene, chloraseptic spray
MRI of the brain with no evidence of intracranial metastatic disease leaning away from central nausea.
Some improvement of oral intake with initiation of hemodialysis hopefully indicative of possibly uremia contributing to symptoms.
Trial of Remeron and Zofran led to increased QTc. Discontinued. QTc improved
Concern for esophageal candidiasis
With persistent odynophagia will start empiric treatment with Diflucan.
Continue acid suppression increasing Protonix to 40 mg IV twice daily.
EGD 05/25 with no abnormalities.
Plan is to complete empiric treatment with Diflucan for 14 days and follow-up biopsy from EGD.
Vasovagal episode/presyncope on 05/20.
No focal findings on neurologic examination. Slight mild hypoglycemia with blood glucose of 74.
Monitor closely for hypotension.
Sinus tachycardia at HD on 05/27
Asymptomatic
ECG sinus tach
Monitor on telemetry
Pro CHF BNP mildly elevated at 790
Echocardiogram with preserved biventricular function and no evidence for RV strain
Lower extremity Dopplers negative
Hemoglobin has been stable
VQ scan low probability
Prolonged QTc
Stop Remeron and Zofran
Improved
Avoid QT prolonging medications
Stage I coccyx pressure injury present on admission. Continue care
Anxiety / Depression
-Continue bupropion
Deconditioning
-PM&R rec acute rehab once eating well or other nutrition plan in place
DVT proph: SC Heparin
Code Status: Full Code
Dispo - acute inpatient rehab
Anticipated Discharge: > 48 hours
Subjective/Interval History
-
Date of Service: May 29, 2025
Objective Data
-
Labs:
Laboratory Results
05/29/25
08:25
WBC 4.3 L
Hgb 8.4 L
Hct 26.7 L
Plt Count 223
Sodium 136
Potassium 3.4 L
Chloride 103
Carbon Dioxide 25
BUN 10
Creatinine 3.1 H
Glucose 94
Calcium 8.5
Vital Signs:
Vital Signs
Temp Pulse Resp BP Pulse Ox
97.5 F 103 16 132/96 100
05/29/25 11:00 05/29/25 11:00 05/29/25 11:00 05/29/25 11:00 05/29/25 11:00
I&O
05/28/25 05/29/25 05/30/25
06:59 06:59 06:59
Intake Total 840 / 840 410 / 410
Output Total 985 / 985 470 / 470
Balance -145 / -145 395 / 395 -470 / -470
Physical Exam
-
General: No Apparent Distress and Cachectic
HEENT: Normocephalic and Atraumatic; Negative Moist Mucous Membranes or Thrush
Respiratory: Clear to Auscultation; Negative Wheezes, Rales or Rhonchi
Cardiac: Regular Rhythm and S1/S2; Negative Murmur, Rub or Gallop
GI: Soft, Nontender, Nondistended and Normal Bowel Sounds; Negative Organomegaly
Genito-urinary: Eldridge
Musculoskeletal: No Clubbing, No Cyanosis, No Edema and Other (Bilateral paraspinal/T-spine level JEEVAN drain. )
Skin: Warm and Dry; Negative Rash
Neuro: Awake, Alert, Oriented, AO x 3, Tremors (Mild bilateral upper extremity resting tremor) and Nonfocal/Grossly Intact
Psych: Calm
[2025-05-29 16:13] LABS: Glucose - Point of Care 93 mg/dl (70-99)
--- NOTE | 2025-05-29 16:51 | CM ---
CM continues with hospitalization; on IV abx, wound care, hemodialysis and 2 JEEVAN drains.
Therapies have evaluated today and recommend Acute Rehab; anticipate transfer to [facility] when medically stable.
[2025-05-29] MEDS: ANCEF 10 IV (17:22)
[2025-05-29 21:34] LABS: Glucose - Point of Care 80 mg/dl (70-99)
[2025-05-29] MEDS: FLOMAX PO (21:51)
[2025-05-30 03:00] VITALS: BP 134/93
[2025-05-30 03:13] LABS: Glucose - Point of Care 76 mg/dl (70-99)
[2025-05-30 03:24] VITALS: BMI 17.3
[2025-05-30 08:00] VITALS: BP 132/96
[2025-05-30 08:05] LABS: Glucose - Point of Care 123 mg/dl (70-99)
[2025-05-30] MEDS: MYCOSTATIN ORAL SUSPENSION 5 ML PO ×4 (09:08→21:09)
[2025-05-30] MEDS: PROTONIX IV 40 MG IV ×2 (09:09→20:05)
[2025-05-30] MEDS: WELLBUTRIN XL (24 hour extended release) 150 MG PO (09:09)
[2025-05-30] MEDS: HEPARIN 5000 UNITS SC ×2 (09:09→20:03)
[2025-05-30] MEDS: NOVOLOG FLEXPEN-LOW RESISTANCE SC ×3 (09:09→17:11)
[2025-05-30] MEDS: NSS (PRESERVATIVE FREE) 10 ML IV ×2 (09:09→20:05)
[2025-05-30] MEDS: DESENEX/MITRAZOL/ZEASORB 1 APPLIC TOPICAL ×2 (09:10→20:06)
[2025-05-30] MEDS: ANTIFUNGAL CLEAR 1 APPLIC TOPICAL ×2 (09:10→20:06)
[2025-05-30] MEDS: OASIS PO ×4 (09:10→21:09)
[2025-05-30] MEDS: VITAMIN C PO (09:11)
[2025-05-30] MEDS: PROSCAR PO (09:11)
[2025-05-30] MEDS: VITAMIN B1 PO (09:11)
[2025-05-30] MEDS: THERAGRAN PO (09:11)
[2025-05-30] MEDS: SENOKOT PO ×2 (09:11→20:05)
--- NOTE | 2025-05-30 11:48 | W.PN.UPDATE ---
Update Note
Progress Note Update
Plastic Surgery Note:
I was asked of the Hospitalist team to interface with [facility] to discuss drain removal. Nurse from [facility] reports that he is overdue for drain removal and has missed postop appointments. Spoke with Dr. Heather Adkins, his plastic surgeon
and confirmed she desired one drain to me removed at present.
Spoke with the patient and also reviewed postop course and drain outputs. He was in agreement that they meet criteria.
One drain removed without incident today. Ideally, he will follow up with his surgical team for second drain removal. If he remains in house for a number of weeks, can revisit second drain removal.
[2025-05-30 12:00] VITALS: BP 133/92
[2025-05-30 12:27] LABS: Blood Urea Nitrogen 10 mg/dl (9-20); Calcium 8.4 mg/dl (8.4-10.2); Carbon Dioxide 28 mmol/L (22-30); Chloride 102 mmol/L (98-107); Estimated Creatinine Clearance 24 ml/min; Glucose 91 mg/dl (70-99); Potassium 3.9 mmol/L (3.5-5.1); Sodium 133 mmol/L (135-145); eGFR 26.49
--- NOTE | 2025-05-30 12:28 | CM ---
Updated referral/clinicals in [facility]. Transfer to [facility] pending acceptance/authorization.
[2025-05-30 12:48] LABS: Glucose - Point of Care 89 mg/dl (70-99)
--- NOTE | 2025-05-30 13:16 | W.PN.NEPH.PH ---
Today's Communication / Plan
-
Next dialysis Sunday
Assessment/Plan
-
IMP:
POLA
Metastatic Renal Cell Carcinoma with Spinal Column Metastasis and subsequent Spinal Infection s/p Left L1 & B/L L2 Segmental Artery Embolization (03/30/25); T12-L2 laminectomy, Left L1/2 corpectomy, T11-L4 fusion (03/31/25); Thoracolumbar Wound
Washout with PRS closure (04/30/2025).
recent PET/CT on 02/27/2025 there is also high FDG activity/pulmonary nodule left upper lobe.
MSSA Bacteremia secondary to Spinal Infection
Status post left nephrectomy for RCC.
Acute urine retention
Obstructive uropathy with right JJ stent placed on 05/05/2025
Elevated anion gap metabolic acidosis.
Chronic normocytic anemia
Severe Protein Calorie Malnutrition
Anxiety / Depression
Hyperalbuminemia
Plan:
HD initiated with concerning of ?uremia causing his nausea and decreased po intake
Dialysis Sunday, will monitor for any potential renal recovery
he remains non oliguric with lovett
Diflucan started for suspected esophageal vance
hemodynamically stable
-
-
Date of Service: May 30, 2025
CC / HPI / ROS
-
Chief Complaint:
POLA
History of Present Illness:
POLA/Cr HD started for ?uremia now on Sunday schedule
Hgb stable 8.2 on 05/27
BP stable
Review of Systems:
no CP/SOB
nonoliguric with lovett
Nausea , odynophagia improving
Labs
-
Labs:
WBC 4.3 10^3/uL (4.8-10.8) L 05/29/25 08:25
RBC 2.76 10^6/uL (4.70-6.10) L 05/29/25 08:25
Hgb 8.4 g/dL (13.0-18.0) L 05/29/25 08:25
Hct 26.7 % (39.0-52.0) L 05/29/25 08:25
Plt Count 223 10^3/uL (130-400) 05/29/25 08:25
Sodium 133 mmol/L (135-145) L 05/30/25 11:53
Potassium 3.9 mmol/L (3.5-5.1) 05/30/25 11:53
Chloride 102 mmol/L (98-107) 05/30/25 11:53
Carbon Dioxide 28 mmol/L (22-30) 05/30/25 11:53
BUN 10 mg/dl (9-20) 05/30/25 11:53
Creatinine 2.8 mg/dL (0.7-1.3) H 05/30/25 11:53
eGFR 26.49 05/30/25 11:53
Glucose 91 mg/dl (70-99) 05/30/25 11:53
Calcium 8.4 mg/dl (8.4-10.2) 05/30/25 11:53
Phosphorus 2.9 mg/dl (2.5-4.5) 05/29/25 08:25
Ibh-G-Qormjtlianb Pept Cancelled 05/27/25 12:44
Albumin 2.7 g/dl (3.5-5.0) L 05/29/25 08:25
Physical Exam
-
Vital Signs:
Vital Signs
Temp Pulse Resp BP Pulse Ox
98.2 F 115 16 133/92 99
05/30/25 12:00 05/30/25 12:00 05/30/25 12:00 05/30/25 12:00 05/30/25 12:00
Cardiovascular:: Regular rate and rhythm
Respiratory:: Bilateral: CTA
Lung Excursion:: Normal
Abdomen:: Nontender and Soft
Bowel Sounds:: Normal
Extremity Edema:: None: Bilateral:
Lovett Catheter: Yes
[2025-05-30] MEDS: DIFLUCAN 200 MG 100 IV (13:20)
--- NOTE | 2025-05-30 13:26 | W.PN.HOSP.TC ---
Today's Communication/Plan
-
Continue current care
Assessment / Plan
Assessment / Plan
Initial presentation
49M with metastatic renal cell carcinoma who transferred from [facility] to following a prolonged hospitalization for worsening malignant soft tissue in the spinal canal with severe spinal stenosis, s/p artery embolization and spinal surgery, c/b spinal
wound infection with wound dehiscence and MSSA bacteremia s/p washout with placement of wound vac and treated with prolonged coarse of IV Ancef. Since transfer he has removed his DHT and refuses replacement, however has minimal po intake and is
deconditioned.
Diagnosis present prior to admission:
Metastatic Renal Cell Carcinoma
MSSA Bacteremia
Anxiety / Depression
Chronic Pain with Opioid Dependence
Hospital course and A/P by problem:
1. MSSA Bacteremia secondary to Spinal Infection
- Continue cefazolin 2gm q12h through Jun 10
- Will likely need chronic cefadroxil afterwards
- Follow-up schedule with ID at [facility]
-Continue wound care.
�Bilateral JEEVAN drain, monitor output daily. Consider removing drains if output less than 30 mL in 2 consecutive days.
�Wound VAC removed on May 11
Today's plastic note:
'I was asked of the Hospitalist team to interface with [facility] to discuss drain removal.
Nurse from [facility] reports that he is overdue for drain removal and has missed postop appointments.
Spoke with Dr. Heather Adkins, his plastic surgeon and confirmed she desired one drain to me removed at present.
Spoke with the patient and also reviewed postop course and drain outputs. He was in agreement that they meet criteria.
One drain removed without incident today. Ideally, he will follow up with his surgical team for second drain removal.
If he remains in house for a number of weeks, can revisit second drain removal.'
2. Metastatic Renal Cell Carcinoma
met to Spinal Column Metastasis
s/p Left L1 & B/L L2 Segmental Artery Embolization (03/30/25);
T12-L2 laminectomy, Left L1/2 corpectomy, T11-L4 fusion (03/31/25);
Thoracolumbar Wound Washout with PRS closure (04/30/2025).
In review of recent PET/CT on 02/27/2025 there is also high FDG activity/pulmonary nodule left upper lobe.
oncology signed off, rec
'OP follow up with [facility] oncologist recommended after discharge to discuss systemic therapy options base on resolution of infection,
renal function, nutritional status, and performance status.'
MRI of the brain, ordered with persistent nausea and emesis and concern for central symptoms, negative for intracranial disease.
3. Acute kidney injury with Elevated anion gap metabolic acidosis.
Status post left nephrectomy for RCC.
Obstructive uropathy with right JJ stent placed on 05/05/2025
Eld[address] catheter in place.
repeat UA
Urine sodium 115
Noted with mild elevation of proteinase 3 at 36.
Isolated with unknown significance.
Unlikely vasculitis.
Patient would be a poor candidate for renal biopsy due to solitary R kidney
Renal ultrasound -medical renal disease.
Appreciate nephrology input, dialysis started 05/18/25
Continue dialysis as per nephrology
4. Hypokalemia
Follow and replete
5. Chronic normocytic anemia
Iron studies indicative of mild iron deficiency and anemia of chronic disease. Per heme/onc, no role for supplementation
Erythropoietin level of 4, low end of normal range.
Follow hemoglobin, transfuse if Hgb<7
6. Pain Management
-Patient previously on Morphine ER which was switched to Morphine IR when DHT was placed
-Patient had been refusing scheduled doses of narcotics
-Continue oxycodone PRN
7. Severe Protein Calorie Malnutrition with Persistent nausea with odynophagia
DHT placed at [facility], has since been removed. Patient does not want it replaced.
Patient reports no swallowing issues, although with persistent nausea and vomiting and metallic taste preventing sufficient oral intake.
Persistent nausea and vomiting with minuscule oral intake possibly multifactorial in the settings of uremia. Opioids stopped.
Exam with no thrush in oral cavity, although initiated empirically on nystatin on 05/12.
Cont biotene, chloraseptic spray
MRI of the brain with no evidence of intracranial metastatic disease leaning away from central nausea.
Some improvement of oral intake with initiation of hemodialysis hopefully indicative of possibly uremia contributing to symptoms.
Trial of Remeron and Zofran led to increased QTc.
Discontinued.
QTc improved
8. Concern for esophageal candidiasis
With persistent odynophagia will start empiric treatment with Diflucan.
Continue acid suppression increasing Protonix to 40 mg IV twice daily.
EGD 05/25 with no abnormalities.
Plan is to complete empiric treatment with Diflucan for 14 days and follow-up biopsy from EGD.
9. Vasovagal episode/presyncope on 05/20.
No focal findings on neurologic examination.
Slight mild hypoglycemia with blood glucose of 74.
Monitor closely for hypotension.
10. Sinus tachycardia at HD on 05/27
Asymptomatic
ECG sinus tach
Monitor on telemetry
Pro CHF BNP mildly elevated at 790
Echocardiogram with preserved biventricular function and no evidence for RV strain
Lower extremity Dopplers negative
Hemoglobin has been stable
scan low probability
11. Prolonged QTc
Stopped Remeron and Zofran
Improved
Avoid QT prolonging medications
12. Stage I coccyx pressure injury present on admission.
Continue care
13. Anxiety / Depression
-Continue bupropion
14. Deconditioning
-PM&R rec acute rehab once eating well or other nutrition plan in place
DVT proph: SC Heparin
Code Status: Full Code
Dispo - acute inpatient rehab
Anticipated Discharge: 24 - 48 hours
Subjective/Interval History
-
Date of Service: May 30, 2025
No complaints today.
Objective Data
-
Labs:
Laboratory Results
05/30/25 05/30/25
11:10 11:53
Sodium Cancelled 133 L
Potassium Cancelled 3.9
Chloride Cancelled 102
Carbon Dioxide Cancelled 28
BUN Cancelled 10
Creatinine Cancelled 2.8 H
Glucose Cancelled 91
Calcium Cancelled 8.4
Vital Signs:
Vital Signs
Temp Pulse Resp BP Pulse Ox
98.2 F 115 16 133/92 99
05/30/25 12:00 05/30/25 12:00 05/30/25 12:00 05/30/25 12:00 05/30/25 12:00
I&O
05/29/25 05/30/25 05/31/25
06:59 06:59 06:59
Intake Total 410 / 410
Output Total 970 / 970 170 / 170
Balance 395 / 395 -970 / -970 -170 / -170
Review of Systems
-
History Source: Patient
All other systems: Reviewed and negative
Physical Exam
-
General: Well Developed, No Apparent Distress, Comfortable and Appears Chronically Ill
HEENT: Normocephalic, Atraumatic and Moist Mucous Membranes
Respiratory: Clear to Auscultation
Cardiac: Regular Rhythm and S1/S2
GI: Soft, Nontender and Nondistended
Musculoskeletal: No Clubbing, No Cyanosis and No Edema
Skin: Warm and Dry
Neuro: Awake, Alert and Oriented
Psych: Calm
Data Reviewed
-
Labs: Labs Reviewed by me
--- NOTE | 2025-05-30 15:07 | PTCARENOTE ---
pt with flat affect but did accept his wellbutrin. Pt aaox4 pleasant able to make his needs known. pt denied any pain at this time. lungs dec clear. no cough no sob, HRR +PP no edema pt denies any cp or palpitations. PT on IV dilfucan and nystatin.
PT took his nystatin as prescribed and admitted that the two are improving his metallic taste that was preventing him from eating and poor appetite. His weight today was 117 and was 138 on admission, ensure given. pt ate about ten bites of
breakfast and refused lunch. pt still appears severely malnourished with cachexia, sunken cheeks and his stomach in. abd soft nt hypoactive. pt has not had bm for couple days but refused any stool softner he stated he was not constipated. pt has
lovett draining clear yellow urine. lovett care given. Pt has Right cw perm cath, CHG bath given. pt refused to get oob today appears to have foot drop, legs elevated on pillow and encouraged to turne side to side. Pt is on fall risk but makes not
attempt to get oob. call meneses in hand
--- NOTE | 2025-05-30 16:26 | PTCARENOTE ---
Dressings on posterior midline falling off and dated 05/27. due to be changed every 3 days. Surgery added 2x2 2with white tape for JEEVAN tube removal. below that were two large silcone boarder foams. no drainage noted when removed sutures found
with edges well approximated no redness no swelling CDI. some scabbing. wound care completed as per MD order and labeled with todays date
[2025-05-30 17:10] LABS: Glucose - Point of Care 129 mg/dl (70-99)
[2025-05-30] MEDS: ANCEF 5 IV (17:11)
[2025-05-30 19:00] VITALS: BP 130/95
[2025-05-30] MEDS: FLOMAX PO (21:09)
[2025-05-30 21:16] LABS: Glucose - Point of Care 211 mg/dl (70-99)
[2025-05-30 23:00] VITALS: BP 134/97
[2025-05-31 03:07] VITALS: BP 143/95
[2025-05-31 06:00] VITALS: BMI 17.6
[2025-05-31 07:10] VITALS: BP 136/99
[2025-05-31 08:02] LABS: Glucose - Point of Care 84 mg/dl (70-99)
[2025-05-31] MEDS: NOVOLOG FLEXPEN-LOW RESISTANCE SC ×3 (08:16→18:11)
[2025-05-31 08:18] LABS: Hematocrit 27.2 % (39.0-52.0); Hemoglobin 8.5 g/dL (13.0-18.0); Mean Corp Hgb Conc. 31.3 g/dL (33.0-37.0); Mean Corpuscular Volume 96.5 fL (80.0-94.0); Platelet Count 250 10^3/uL (130-400); Red Cell Dist. Width 19.6 % (11.5-14.5)
[2025-05-31] MEDS: DESENEX/MITRAZOL/ZEASORB 1 APPLIC TOPICAL ×2 (08:28→21:34)
[2025-05-31] MEDS: ANTIFUNGAL CLEAR 1 APPLIC TOPICAL ×2 (08:28→21:33)
[2025-05-31] MEDS: HEPARIN 5000 UNITS SC ×2 (08:29→21:34)
[2025-05-31] MEDS: MYCOSTATIN ORAL SUSPENSION 5 ML PO ×4 (08:31→21:36)
[2025-05-31] MEDS: NSS (PRESERVATIVE FREE) 10 ML IV ×2 (08:31→21:36)
[2025-05-31] MEDS: PROTONIX IV 40 MG IV ×2 (08:31→21:36)
[2025-05-31] MEDS: PROSCAR PO (08:32)
[2025-05-31] MEDS: VITAMIN C PO (08:32)
[2025-05-31] MEDS: WELLBUTRIN XL (24 hour extended release) 150 MG PO (08:32)
[2025-05-31] MEDS: SENOKOT PO ×2 (08:32→21:36)
[2025-05-31] MEDS: THERAGRAN PO (08:32)
[2025-05-31] MEDS: VITAMIN B1 PO (08:32)
[2025-05-31] MEDS: OASIS PO ×4 (08:32→21:36)
[2025-05-31 08:48] LABS: Blood Urea Nitrogen 14 mg/dl (9-20); Calcium 8.6 mg/dl (8.4-10.2); Carbon Dioxide 27 mmol/L (22-30); Chloride 101 mmol/L (98-107); Estimated Creatinine Clearance 20 ml/min; Glucose 81 mg/dl (70-99); Potassium 3.6 mmol/L (3.5-5.1); Sodium 132 mmol/L (135-145); eGFR 21.75
--- NOTE | 2025-05-31 10:31 | W.PN.NEPH.PH ---
Today's Communication / Plan
-
Dialysis tomorrow/orders provided
Assessment/Plan
-
IMP:
POLA
Metastatic Renal Cell Carcinoma with Spinal Column Metastasis and subsequent Spinal Infection s/p Left L1 & B/L L2 Segmental Artery Embolization (03/30/25); T12-L2 laminectomy, Left L1/2 corpectomy, T11-L4 fusion (03/31/25); Thoracolumbar Wound
Washout with PRS closure (04/30/2025).
recent PET/CT on 02/27/2025 there is also high FDG activity/pulmonary nodule left upper lobe.
MSSA Bacteremia secondary to Spinal Infection
Status post left nephrectomy for RCC.
Acute urine retention
Obstructive uropathy with right JJ stent placed on 05/05/2025
Elevated anion gap metabolic acidosis.
Chronic normocytic anemia
Severe Protein Calorie Malnutrition
Anxiety / Depression
Hyperalbuminemia
Plan:
HD initiated with concerning of ?uremia causing his nausea and decreased po intake
Dialysis Sunday, will monitor for any potential renal recovery
he remains non oliguric with lovett
Diflucan started for suspected esophageal vance
hemodynamically stable
-
-
Date of Service: May 31, 2025
CC / HPI / ROS
-
Chief Complaint:
POLA
History of Present Illness:
POLA/Cr HD started for ?uremia now on Sunday schedule
Hgb stable 8.5
BP stable
Review of Systems:
no CP/SOB
nonoliguric with lovett
Nausea , odynophagia improving
Labs
-
Labs:
WBC 4.3 10^3/uL (4.8-10.8) L 05/31/25 07:31
RBC 2.82 10^6/uL (4.70-6.10) L 05/31/25 07:31
Hgb 8.5 g/dL (13.0-18.0) L 05/31/25 07:31
Hct 27.2 % (39.0-52.0) L 05/31/25 07:31
Plt Count 250 10^3/uL (130-400) 05/31/25 07:31
Sodium 132 mmol/L (135-145) L 05/31/25 07:31
Potassium 3.6 mmol/L (3.5-5.1) 05/31/25 07:31
Chloride 101 mmol/L (98-107) 05/31/25 07:31
Carbon Dioxide 27 mmol/L (22-30) 05/31/25 07:31
BUN 14 mg/dl (9-20) 05/31/25 07:31
Creatinine 3.3 mg/dL (0.7-1.3) H 05/31/25 07:31
eGFR 21.75 05/31/25 07:31
Glucose 81 mg/dl (70-99) 05/31/25 07:31
Calcium 8.6 mg/dl (8.4-10.2) 05/31/25 07:31
Phosphorus 2.9 mg/dl (2.5-4.5) 05/29/25 08:25
Uea-K-Kexmnxmbszv Pept Cancelled 05/27/25 12:44
Albumin 2.7 g/dl (3.5-5.0) L 05/29/25 08:25
Physical Exam
-
Vital Signs:
Vital Signs
Temp Pulse Resp BP Pulse Ox
98.3 F 105 21 136/99 100
05/31/25 07:10 05/31/25 07:10 05/31/25 07:10 05/31/25 07:10 05/31/25 07:10
Cardiovascular:: Regular rate and rhythm
Respiratory:: Bilateral: CTA
Lung Excursion:: Normal
Abdomen:: Nontender and Soft
Bowel Sounds:: Normal
Extremity Edema:: None: Bilateral:
Lovett Catheter: Yes
[2025-05-31 11:18] VITALS: BP 125/92
--- NOTE | 2025-05-31 11:57 | W.PN.HOSP.TC ---
Today's Communication/Plan
-
See plan
Assessment / Plan
Assessment / Plan
Physical exam:
General: Acute on chronically ill
HEENT: Normocephalic, Atraumatic and Moist Mucous Membranes
Respiratory: Clear to Auscultation; Negative Wheezes, Rales or Rhonchi
Cardiac: Regular Rhythm, tachycardic, and S1/S2
GI: Soft, Nontender and Nondistended
Musculoskeletal: No Clubbing, No Cyanosis and No Edema
Neuro: Awake, Alert and Oriented, no neurological
Psych: Calm
A/P:
Initial presentation
49M with metastatic renal cell carcinoma who transferred from [facility] to following a prolonged hospitalization for worsening malignant soft tissue in the spinal canal with severe spinal stenosis, s/p artery embolization and spinal surgery, c/b spinal
wound infection with wound dehiscence and MSSA bacteremia s/p washout with placement of wound vac and treated with prolonged coarse of IV Ancef. Since transfer he has removed his DHT and refuses replacement, however has minimal po intake and is
deconditioned.
Diagnosis present prior to admission:
Metastatic Renal Cell Carcinoma
MSSA Bacteremia
Anxiety / Depression
Chronic Pain with Opioid Dependence
Hospital course and A/P by problem:
1. MSSA Bacteremia secondary to Spinal Infection
- Continue cefazolin 2gm q12h through Jun 10
- Will likely need chronic cefadroxil afterwards
- Follow-up schedule with ID at [facility]
-Continue wound care.
�Bilateral JEEVAN drain, monitor output daily. Consider removing drains if output less than 30 mL in 2 consecutive days.
�Wound VAC removed on May 11
Yesterday's plastic note:
'I was asked of the Hospitalist team to interface with [facility] to discuss drain removal.
Nurse from [facility] reports that he is overdue for drain removal and has missed postop appointments.
Spoke with Dr. Heather Adkins, his plastic surgeon and confirmed she desired one drain to me removed at present.
Spoke with the patient and also reviewed postop course and drain outputs. He was in agreement that they meet criteria.
One drain removed without incident today. Ideally, he will follow up with his surgical team for second drain removal.
If he remains in house for a number of weeks, can revisit second drain removal.'
2. Metastatic Renal Cell Carcinoma
met to Spinal Column Metastasis
s/p Left L1 & B/L L2 Segmental Artery Embolization (03/30/25);
T12-L2 laminectomy, Left L1/2 corpectomy, T11-L4 fusion (03/31/25);
Thoracolumbar Wound Washout with PRS closure (04/30/2025).
In review of recent PET/CT on 02/27/2025 there is also high FDG activity/pulmonary nodule left upper lobe.
oncology signed off, rec
'OP follow up with [facility] oncologist recommended after discharge to discuss systemic therapy options base on resolution of infection,
renal function, nutritional status, and performance status.'
MRI of the brain, ordered with persistent nausea and emesis and concern for central symptoms, negative for intracranial disease.
3. Acute kidney injury with Elevated anion gap metabolic acidosis.
Status post left nephrectomy for RCC.
Obstructive uropathy with right JJ stent placed on 05/05/2025
Eldridge catheter in place.
repeat UA
Urine sodium 115
Noted with mild elevation of proteinase 3 at 36.
Isolated with unknown significance.
Unlikely vasculitis.
Patient would be a poor candidate for renal biopsy due to solitary R kidney
Renal ultrasound -medical renal disease.
Appreciate nephrology input, dialysis started 05/18/25
Continue dialysis as per nephrology. Plan for HD tomorrow
4. Hypokalemia
Follow and replete
5. Chronic normocytic anemia
Iron studies indicative of mild iron deficiency and anemia of chronic disease. Per heme/onc, no role for supplementation
Erythropoietin level of 4, low end of normal range.
Follow hemoglobin, transfuse if Hgb<7
6. Pain Management
-Patient previously on Morphine ER which was switched to Morphine IR when DHT was placed
-Patient had been refusing scheduled doses of narcotics
-Continue oxycodone PRN
7. Severe Protein Calorie Malnutrition with Persistent nausea with odynophagia
DHT placed at [place], has since been removed. Patient does not want it replaced.
Patient reports no swallowing issues, although with persistent nausea and vomiting and metallic taste preventing sufficient oral intake.
Persistent nausea and vomiting with minuscule oral intake possibly multifactorial in the settings of uremia. Opioids stopped.
Exam with no thrush in oral cavity, although initiated empirically on nystatin on 05/12.
Cont biotene, chloraseptic spray
MRI of the brain with no evidence of intracranial metastatic disease leaning away from central nausea.
Some improvement of oral intake with initiation of hemodialysis hopefully indicative of possibly uremia contributing to symptoms.
Trial of Remeron and Zofran led to increased QTc.
Discontinued.
QTc improved
8. Concern for esophageal candidiasis
With persistent odynophagia will start empiric treatment with Diflucan.
Continue acid suppression increasing Protonix to 40 mg IV twice daily.
EGD 05/25 with no abnormalities.
Plan is to complete empiric treatment with Diflucan for 14 days and follow-up biopsy from EGD.
9. Vasovagal episode/presyncope on 05/20.
No focal findings on neurologic examination.
Slight mild hypoglycemia with blood glucose of 74.
Monitor closely for hypotension.
10. Sinus tachycardia at HD on 05/27
Asymptomatic
ECG sinus tach
Monitor on telemetry
Pro CHF BNP mildly elevated at 790
Echocardiogram with preserved biventricular function and no evidence for RV strain
Lower extremity Dopplers negative
Hemoglobin has been stable
scan low probability
11. Prolonged QTc
Stopped Remeron and Zofran
Improved
Avoid QT prolonging medications
12. Stage I coccyx pressure injury present on admission.
Continue care
13. Anxiety / Depression
-Continue bupropion
14. Deconditioning
-PM&R rec acute rehab once eating well or other nutrition plan in place
DVT proph: SC Heparin
Code Status: Full Code
Dispo - acute inpatient rehab
Anticipated Discharge: 24 - 48 hours
Subjective/Interval History
-
Date of Service: May 31, 2025
Patient has some nausea and vomiting earlier. He also made some comments to the nurse but after clarification there is no concerns. Denies suicidal ideation or homicidal ideation.
Objective Data
-
Labs:
Laboratory Results
05/31/25
07:31
WBC 4.3 L
Hgb 8.5 L
Hct 27.2 L
Plt Count 250
Sodium 132 L
Potassium 3.6
Chloride 101
Carbon Dioxide 27
BUN 14
Creatinine 3.3 H
Glucose 81
Calcium 8.6
Vital Signs:
Vital Signs
Temp Pulse Resp BP Pulse Ox
98.3 F 105 21 136/99 100
05/31/25 07:10 05/31/25 07:10 05/31/25 07:10 05/31/25 07:10 05/31/25 07:10
I&O
05/30/25 05/31/25 06/01/25
06:59 06:59 06:59
Intake Total 720 / 720
Output Total 970 / 970 870 / 870
Balance -970 / -970 -150 / -150
[2025-05-31 12:07] LABS: Glucose - Point of Care 100 mg/dl (70-99)
[2025-05-31] MEDS: DIFLUCAN 200 MG 100 IV (12:43)
[2025-05-31 15:18] VITALS: BP 135/95
[2025-05-31 16:42] LABS: Glucose - Point of Care 200 mg/dl (70-99)
[2025-05-31] MEDS: ANCEF 5 IV (18:12)
[2025-05-31 19:50] VITALS: BP 141/90
[2025-05-31 21:36] LABS: Glucose - Point of Care 88 mg/dl (70-99)
[2025-05-31] MEDS: FLOMAX PO (21:36)
[2025-05-31 23:31] VITALS: BP 135/100
[2025-06-01] VITALS (7 sets, daily range): BP systolic 119–140; BP diastolic 84–98; PULSE 114; O2SAT 100; BMI 17.9
[2025-06-01 08:14] LABS: Glucose - Point of Care 194 mg/dl (70-99)
[2025-06-01] MEDS: HEPARIN 5000 UNITS SC ×2 (08:33→21:14)
[2025-06-01] MEDS: MYCOSTATIN ORAL SUSPENSION 5 ML PO ×4 (08:33→21:15)
[2025-06-01] MEDS: NOVOLOG FLEXPEN-LOW RESISTANCE 1 UNITS SC (08:33)
[2025-06-01] MEDS: NSS (PRESERVATIVE FREE) 10 ML IV ×2 (08:34→21:15)
[2025-06-01] MEDS: PROTONIX IV 40 MG IV ×2 (08:34→21:15)
[2025-06-01] MEDS: COMPAZINE 5 MG IV (08:35)
[2025-06-01] MEDS: OASIS PO ×4 (08:37→21:17)
[2025-06-01] MEDS: WELLBUTRIN XL (24 hour extended release) 150 MG PO (08:37)
[2025-06-01] MEDS: VITAMIN B1 PO (08:38)
[2025-06-01] MEDS: PROSCAR PO (08:38)
[2025-06-01] MEDS: VITAMIN C PO (08:38)
[2025-06-01] MEDS: THERAGRAN PO (08:38)
[2025-06-01] MEDS: SENOKOT PO ×2 (08:38→21:15)
[2025-06-01] MEDS: ANTIFUNGAL CLEAR 1 APPLIC TOPICAL ×2 (08:39→21:13)
[2025-06-01] MEDS: DESENEX/MITRAZOL/ZEASORB 1 APPLIC TOPICAL ×2 (08:39→21:13)
[2025-06-01 12:09] LABS: Glucose - Point of Care 95 mg/dl (70-99)
[2025-06-01] MEDS: NOVOLOG FLEXPEN-LOW RESISTANCE SC ×2 (12:22→17:11)
[2025-06-01] MEDS: DIFLUCAN 200 MG 100 IV (13:08)
--- NOTE | 2025-06-01 15:09 | W.PN.HOSP.TC ---
Today's Communication/Plan
-
Hemodialysis.
Monitor oral intake.
Physical therapy
Assessment / Plan
Assessment / Plan
A/P:
Initial presentation
49M with metastatic renal cell carcinoma who transferred from [facility] to following a prolonged hospitalization for worsening malignant soft tissue in the spinal canal with severe spinal stenosis, s/p artery embolization and spinal surgery, c/b spinal
wound infection with wound dehiscence and MSSA bacteremia s/p washout with placement of wound vac and treated with prolonged coarse of IV Ancef. Since transfer he has removed his DHT and refuses replacement, however has minimal po intake and is
deconditioned.
Diagnosis present prior to admission:
Metastatic Renal Cell Carcinoma
MSSA Bacteremia
Anxiety / Depression
Chronic Pain with Opioid Dependence
Hospital course and A/P by problem:
1. MSSA Bacteremia secondary to Spinal Infection
- Continue cefazolin 2gm q12h through Jun 10
- Will likely need chronic cefadroxil afterwards
- Follow-up schedule with ID at [facility]
-Continue wound care.
�Bilateral JEEVAN drain, monitor output daily. Consider removing drains if output less than 30 mL in 2 consecutive days.
�Wound VAC removed on May 11
Yesterday's plastic note:
'I was asked of the Hospitalist team to interface with [facility] to discuss drain removal.
Nurse from [facility] reports that he is overdue for drain removal and has missed postop appointments.
Spoke with Dr. Heather Adkins, his plastic surgeon and confirmed she desired one drain to me removed at present.
Spoke with the patient and also reviewed postop course and drain outputs. He was in agreement that they meet criteria.
One drain removed without incident 05/29. Ideally, he will follow up with his surgical team for second drain removal.
If he remains in house for a number of weeks, can revisit second drain removal.'
2. Metastatic Renal Cell Carcinoma
met to Spinal Column Metastasis
s/p Left L1 & B/L L2 Segmental Artery Embolization (03/30/25);
T12-L2 laminectomy, Left L1/2 corpectomy, T11-L4 fusion (03/31/25);
Thoracolumbar Wound Washout with PRS closure (04/30/2025).
In review of recent PET/CT on 02/27/2025 there is also high FDG activity/pulmonary nodule left upper lobe.
oncology signed off, rec
'OP follow up with [facility] oncologist recommended after discharge to discuss systemic therapy options base on resolution of infection,
renal function, nutritional status, and performance status.'
MRI of the brain, ordered with persistent nausea and emesis and concern for central symptoms, negative for intracranial disease.
3. Acute kidney injury with Elevated anion gap metabolic acidosis.
Status post left nephrectomy for RCC.
Obstructive uropathy with right JJ stent placed on 05/05/[address]25
Eldridge catheter in place.
repeat UA
Urine sodium 115
Noted with mild elevation of proteinase 3 at 36.
Isolated with unknown significance.
Unlikely vasculitis.
Patient would be a poor candidate for renal biopsy due to solitary R kidney
Renal ultrasound -medical renal disease.
Appreciate nephrology input, dialysis started 05/18/25
Continue dialysis as per nephrology. Plan for HD tomorrow
4. Hypokalemia
Follow and replete
5. Chronic normocytic anemia
Iron studies indicative of mild iron deficiency and anemia of chronic disease. Per heme/onc, no role for supplementation
Erythropoietin level of 4, low end of normal range.
Follow hemoglobin, transfuse if Hgb<7
6. Pain Management
-Patient previously on Morphine ER which was switched to Morphine IR when DHT was placed
-Patient had been refusing scheduled doses of narcotics
-Continue oxycodone PRN
7. Severe Protein Calorie Malnutrition with Persistent nausea with odynophagia
DHT placed at [facility], has since been removed. Patient does not want it replaced.
Patient reports no swallowing issues, although with persistent nausea and vomiting and metallic taste preventing sufficient oral intake.
Persistent nausea and vomiting with minuscule oral intake possibly multifactorial in the settings of uremia. Opioids stopped.
Exam with no thrush in oral cavity, although initiated empirically on nystatin on 05/12.
Cont biotene, chloraseptic spray
MRI of the brain with no evidence of intracranial metastatic disease leaning away from central nausea.
Some improvement of oral intake with initiation of hemodialysis hopefully indicative of possibly uremia contributing to symptoms.
Trial of Remeron and Zofran led to increased QTc.
Discontinued.
QTc improved
8. Concern for esophageal candidiasis
With persistent odynophagia will start empiric treatment with Diflucan.
Continue acid suppression increasing Protonix to 40 mg IV twice daily.
EGD 05/25 with no abnormalities.
Plan is to complete empiric treatment with Diflucan for 14 days and follow-up biopsy from EGD.
9. Vasovagal episode/presyncope on 05/20.
No focal findings on neurologic examination.
Slight mild hypoglycemia with blood glucose of 74.
Monitor closely for hypotension.
10. Sinus tachycardia at HD on 05/27
Asymptomatic
ECG sinus tach
Monitor on telemetry
Pro CHF BNP mildly elevated at 790
Echocardiogram with preserved biventricular function and no evidence for RV strain
Lower extremity Dopplers negative
Hemoglobin has been stable
scan low probability
11. Prolonged QTc
Stopped Remeron and Zofran
Improved
Avoid QT prolonging medications
12. Stage I coccyx pressure injury present on admission.
Continue care
13. Anxiety / Depression
-Continue bupropion
14. Deconditioning
-PM&R rec acute rehab once eating well or other nutrition plan in place
DVT proph: SC Heparin
Code Status: Full Code
Dispo - acute inpatient rehab
Anticipated Discharge: 24 - 48 hours
Subjective/Interval History
-
Date of Service: June 01, 2025
Objective Data
-
Vital Signs:
Vital Signs
Temp Pulse Resp BP Pulse Ox
98.0 F 105 16 132/92 99
06/01/25 12:00 06/01/25 12:00 06/01/25 12:00 06/01/25 12:00 06/01/25 12:00
I&O
05/31/25 06/01/25 06/02/25
06:59 06:59 06:59
Intake Total 720 / 720
Output Total 870 / 870 1000 / 1000
Balance -150 / -150 -1000 / -1000
Physical Exam
-
General: Well Developed, No Apparent Distress, Comfortable and Appears Chronically Ill
HEENT: Normocephalic, Atraumatic and Moist Mucous Membranes
Respiratory: Clear to Auscultation
Cardiac: Regular Rhythm and S1/S2
GI: Soft, Nontender and Nondistended
Musculoskeletal: No Clubbing, No Cyanosis and No Edema
Skin: Warm and Dry
Neuro: Awake, Alert and Oriented
Psych: Calm
--- NOTE | 2025-06-01 16:43 | W.PN.NEPH.HD ---
Assessment
-
Seen on HD no complaints. VSS< access ok.
trying to eat more
Progress Note - Hemodialysis
-
Date of Service: June 01, 2025
Duration: 3 hours
Potassium Bath: 4
Calcium Bath: 2.5
Opti-Dialyzer: 160
Ultrafiltration: Other (none)
Blood Flow: 400
Dialysate Flow: 600
Heparin: 0
EPO: 8000 units
[2025-06-01 16:58] LABS: Glucose - Point of Care 101 mg/dl (70-99)
[2025-06-01 17:09] LABS: Hematocrit 26.0 % (39.0-52.0); Hemoglobin 8.3 g/dL (13.0-18.0)
[2025-06-01 17:22] LABS: Blood Urea Nitrogen 18 mg/dl (9-20); Calcium 8.7 mg/dl (8.4-10.2); Carbon Dioxide 26 mmol/L (22-30); Chloride 101 mmol/L (98-107); Estimated Creatinine Clearance 17 ml/min; Glucose 86 mg/dl (70-99); Magnesium 1.6 mg/dl (1.6-2.3); Potassium 3.7 mmol/L (3.5-5.1); Sodium 131 mmol/L (135-145); eGFR 17.80
[2025-06-01] MEDS: RETACRIT 8000 UNITS IV (17:52)
--- NOTE | 2025-06-01 18:04 | PTCARENOTE ---
Pt went into 2 episodes of SVT while PT was with pt in room. Pt sitting on side of bed getting washed up with a washcloth when they went into 1 episode of SVT, pt was laying in bed doing bed exercises when he went into another episode of SVT. Each
episode lasting about 30 seconds. MD made aware. EKG obtained and EKG showed sinus tach. Pt has yet to be in SVT since PT finished seeing them. Pt continues to be monitored via tele monitor.
[2025-06-01] MEDS: HEPARIN 3900 UNITS INTRACATH (19:50)
[2025-06-01 21:11] LABS: Glucose - Point of Care 85 mg/dl (70-99)
[2025-06-01] MEDS: ANCEF 5 IV (21:13)
[2025-06-01] MEDS: FLOMAX PO (21:15)
[2025-06-02 02:39] VITALS: BMI 17.1
[2025-06-02 03:00] VITALS: BP 123/87
[2025-06-02 07:00] VITALS: BP 126/90
[2025-06-02] MEDS: MYCOSTATIN ORAL SUSPENSION 5 ML PO ×2 (07:50→12:21)
[2025-06-02] MEDS: NSS (PRESERVATIVE FREE) 10 ML IV ×2 (07:50→20:55)
[2025-06-02] MEDS: WELLBUTRIN XL (24 hour extended release) 150 MG PO (07:50)
[2025-06-02] MEDS: PROTONIX IV 40 MG IV ×2 (07:51→20:56)
[2025-06-02] MEDS: HEPARIN 5000 UNITS SC ×2 (07:51→20:53)
[2025-06-02] MEDS: DESENEX/MITRAZOL/ZEASORB 1 APPLIC TOPICAL ×2 (07:55→20:55)
[2025-06-02] MEDS: ANTIFUNGAL CLEAR 1 APPLIC TOPICAL ×2 (07:55→20:55)
[2025-06-02] MEDS: NOVOLOG FLEXPEN-LOW RESISTANCE SC ×3 (08:01→16:34)
[2025-06-02 08:02] LABS: Glucose - Point of Care 80 mg/dl (70-99)
[2025-06-02] MEDS: OASIS PO ×4 (08:02→21:14)
[2025-06-02] MEDS: PROSCAR PO (08:02)
[2025-06-02] MEDS: SENOKOT PO ×2 (08:03→20:53)
[2025-06-02] MEDS: THERAGRAN PO (08:03)
[2025-06-02] MEDS: VITAMIN C PO (08:03)
[2025-06-02] MEDS: VITAMIN B1 PO (08:03)
--- NOTE | 2025-06-02 09:08 | CM ---
Continues with HD 3x weekly.
PT OT indicates acute rehab.
[facility] appropriate due to HD availability.
Requested PM&R reevalute last one 05/08/25.
PLAN Depending on hospital course of care
[2025-06-02] MEDS: MAGNESIUM SULFATE 102 GRAMS IV (10:47)
[2025-06-02] MEDS: LOPRESSOR 12.5 MG PO ×2 (10:50→20:54)
[2025-06-02 11:00] VITALS: BP 136/91
[2025-06-02 11:51] LABS: Glucose - Point of Care 84 mg/dl (70-99)
[2025-06-02] MEDS: DIFLUCAN 200 MG 100 IV (12:14)
--- NOTE | 2025-06-02 13:21 | W.PN.NEPH.PH ---
Today's Communication / Plan
-
HD
Assessment/Plan
-
IMP:
POLA
Metastatic Renal Cell Carcinoma with Spinal Column Metastasis and subsequent Spinal Infection s/p Left L1 & B/L L2 Segmental Artery Embolization (03/30/25); T12-L2 laminectomy, Left L1/2 corpectomy, T11-L4 fusion (03/31/25); Thoracolumbar Wound
Washout with PRS closure (04/30/2025).
recent PET/CT on 02/27/2025 there is also high FDG activity/pulmonary nodule left upper lobe.
MSSA Bacteremia secondary to Spinal Infection
Status post left nephrectomy for RCC.
Acute urine retention
Obstructive uropathy with right JJ stent placed on 05/05/2025
Elevated anion gap metabolic acidosis.
Chronic normocytic anemia
Severe Protein Calorie Malnutrition
Anxiety / Depression
Hyperalbuminemia
Plan:
HD tomorrow
he remains non oliguric with lovett
Diflucan started for suspected esophageal vance
hemodynamically stable
-
-
Date of Service: June 02, 2025
CC / HPI / ROS
-
Chief Complaint:
POLA
History of Present Illness:
POLA/Cr HD started for uremia now on Sunday schedule
Hgb stable
BP stable
tolerated HD yesterday
Review of Systems:
no CP/SOB
nonoliguric with lovett
Nausea , odynophagia istill
Labs
-
Labs:
WBC 4.3 10^3/uL (4.8-10.8) L 05/31/25 07:31
RBC 2.82 10^6/uL (4.70-6.10) L 05/31/25 07:31
Hgb 8.3 g/dL (13.0-18.0) L 06/01/25 16:57
Hct 26.0 % (39.0-52.0) L 06/01/25 16:57
Plt Count 250 10^3/uL (130-400) 05/31/25 07:31
Sodium 131 mmol/L (135-145) L 06/01/25 16:57
Potassium 3.7 mmol/L (3.5-5.1) 06/01/25 16:57
Chloride 101 mmol/L (98-107) 06/01/25 16:57
Carbon Dioxide 26 mmol/L (22-30) 06/01/25 16:57
BUN 18 mg/dl (9-20) 06/01/25 16:57
Creatinine 3.9 mg/dL (0.7-1.3) H 06/01/25 16:57
eGFR 17.80 06/01/25 16:57
Glucose 86 mg/dl (70-99) 06/01/25 16:57
Calcium 8.7 mg/dl (8.4-10.2) 06/01/25 16:57
Phosphorus 2.9 mg/dl (2.5-4.5) 05/29/25 08:25
Fwf-H-Fillprcldvy Pept Cancelled 05/27/25 12:44
Albumin 2.7 g/dl (3.5-5.0) L 05/29/25 08:25
Physical Exam
-
Vital Signs:
Vital Signs
Temp Pulse Resp BP Pulse Ox
98.0 F 108 16 136/91 99
06/02/25 11:00 06/02/25 11:00 06/02/25 11:00 06/02/25 11:00 06/02/25 11:00
Cardiovascular:: Regular rate and rhythm
Respiratory:: Bilateral: Coarse
Lung Excursion:: Normal
Abdomen:: Nontender and Soft
Bowel Sounds:: Normal
Extremity Edema:: None: Bilateral:
--- NOTE | 2025-06-02 13:39 | W.PN.HOSP.TC ---
Today's Communication/Plan
-
Hemodialysis as per schedule
Sinus tachycardia with episode of SVT initiated on low-dose of Lopressor
Hypomagnesemia being addressed
Complete course of Diflucan as of 06/04
IV antibiotics
Physiatry evaluation
Discharge plan
Assessment / Plan
Assessment / Plan
A/P:
Initial presentation
49M with metastatic renal cell carcinoma who transferred from [facility] to following a prolonged hospitalization for worsening malignant soft tissue in the spinal canal with severe spinal stenosis, s/p artery embolization and spinal surgery, c/b spinal
wound infection with wound dehiscence and MSSA bacteremia s/p washout with placement of wound vac and treated with prolonged coarse of IV Ancef. Since transfer he has removed his DHT and refuses replacement, however has minimal po intake and is
deconditioned.
Diagnosis present prior to admission:
Metastatic Renal Cell Carcinoma
MSSA Bacteremia
Anxiety / Depression
Chronic Pain with Opioid Dependence
Hospital course and A/P by problem:
1. MSSA Bacteremia secondary to Spinal Infection
- Continue cefazolin 2gm q12h through Jun 10
- Will likely need chronic cefadroxil afterwards
- Follow-up schedule with ID at [facility]
-Continue wound care.
�Bilateral JEEVAN drain, monitor output daily. Consider removing drains if output less than 30 mL in 2 consecutive days.
�Wound VAC removed on May 11
Yesterday's plastic note:
'I was asked of the Hospitalist team to interface with [facility] to discuss drain removal.
Nurse from [facility] reports that he is overdue for drain removal and has missed postop appointments.
Spoke with Dr. Heather Adkins, his plastic surgeon and confirmed she desired one drain to me removed at present.
Spoke with the patient and also reviewed postop course and drain outputs. He was in agreement that they meet criteria.
One drain removed without incident 05/29. Ideally, he will follow up with his surgical team for second drain removal.
If he remains in house for a number of weeks, can revisit second drain removal.'
2. Metastatic Renal Cell Carcinoma
met to Spinal Column Metastasis
s/p Left L1 & B/L L2 Segmental Artery Embolization (03/30/25);
T12-L2 laminectomy, Left L1/2 corpectomy, T11-L4 fusion (03/31/25);
Thoracolumbar Wound Washout with PRS closure (04/30/2025).
In review of recent PET/CT on 02/27/2025 there is also high FDG activity/pulmonary nodule left upper lobe.
oncology signed off, rec
'OP follow up with [facility] oncologist recommended after discharge to discuss systemic therapy options base on resolution of infection,
renal function, nutritional status, and performance status.'
MRI of the brain, ordered with persistent nausea and emesis and concern for central symptoms, negative for intracranial disease.
3. Acute kidney injury with Elevated anion gap metabolic acidosis.
Status post left nephrectomy for RCC.
Obstructive uropathy with right JJ stent placed on 05/05/2025
Eldridge catheter in place.
repeat UA
Urine sodium 115
Noted with mild elevation of proteinase 3 at 36.
Isolated with unknown significance.
Unlikely vasculitis.
Patient would be a poor candidate for renal biopsy due to solitary R kidney
Renal ultrasound -medical renal disease.
Appreciate nephrology input, dialysis started 05/18/25
Continue dialysis as per nephrology. Plan for HD tomorrow
4. Hypokalemia
Follow and replete
5. Chronic normocytic anemia
Iron studies indicative of mild iron deficiency and anemia of chronic disease. Per heme/onc, no role for supplementation
Erythropoietin level of 4, low end of normal range.
Follow hemoglobin, transfuse if Hgb<7
6. Pain Management
-Patient previously on Morphine ER which was switched to Morphine IR when DHT was placed
-Patient had been refusing scheduled doses of narcotics
-Continue oxycodone PRN
7. Severe Protein Calorie Malnutrition with Persistent nausea with odynophagia
DHT placed at [facility], has since been removed. Patient does not want it replaced.
Patient reports no swallowing issues, although with persistent nausea and vomiting and metallic taste preventing sufficient oral intake.
Persistent nausea and vomiting with minuscule oral intake possibly multifactorial in the settings of uremia. Opioids stopped.
Exam with no thrush in oral cavity, although initiated empirically on nystatin on 05/12.
Cont biotene, chloraseptic spray
MRI of the brain with no evidence of intracranial metastatic disease leaning away from central nausea.
Some improvement of oral intake with initiation of hemodialysis hopefully indicative of possibly uremia contributing to symptoms.
Trial of Remeron and Zofran led to increased QTc.
Discontinued.
QTc improved
8. Concern for esophageal candidiasis
With persistent odynophagia will start empiric treatment with Diflucan.
Continue acid suppression increasing Protonix to 40 mg IV twice daily.
EGD 05/25 with no abnormalities.
Plan is to complete empiric treatment with Diflucan for 14 days through 06/04
9. Vasovagal episode/presyncope on 05/20.
No focal findings on neurologic examination.
Slight mild hypoglycemia with blood glucose of 74.
Monitor closely for hypotension.
10. Sinus tachycardia at HD on 05/27
Episode of SVT
Asymptomatic
ECG sinus tach
Monitor on telemetry
Pro CHF BNP mildly elevated at 790
Echocardiogram with preserved biventricular function and no evidence for RV strain
Lower extremity Dopplers negative
Hemoglobin has been stable
Initiated a low-dose of Lopressor 12.5 mg twice daily
11. Prolonged QTc
Stopped Remeron and Zofran
Improved
Avoid QT prolonging medications
12. Stage I coccyx pressure injury present on admission.
Continue care
13. Anxiety / Depression
-Continue bupropion
14. Deconditioning
-PM&R rec acute rehab once eating well or other nutrition plan in place
DVT proph: SC Heparin
Code Status: Full Code
Dispo - acute inpatient rehab
Anticipated Discharge: 24 - 48 hours
Subjective/Interval History
-
Date of Service: June 02, 2025
Objective Data
-
Vital Signs:
Vital Signs
Temp Pulse Resp BP Pulse Ox
98.0 F 108 16 136/91 99
06/02/25 11:00 06/02/25 11:00 06/02/25 11:00 06/02/25 11:00 06/02/25 11:00
I&O
06/01/25 06/02/25 06/03/25
06:59 06:59 06:59
Output Total 1000 / 1000 700 / 700
Balance -1000 / -1000 -700 / -700
Physical Exam
-
General: Well Developed, No Apparent Distress, Comfortable and Appears Chronically Ill
HEENT: Normocephalic, Atraumatic and Moist Mucous Membranes
Respiratory: Clear to Auscultation
Cardiac: Regular Rhythm and S1/S2
GI: Soft, Nontender and Nondistended
Musculoskeletal: No Clubbing, No Cyanosis and No Edema
Skin: Warm and Dry
Neuro: Awake, Alert and Oriented
Psych: Calm
[2025-06-02 15:00] VITALS: BP 117/84
[2025-06-02 16:32] LABS: Glucose - Point of Care 102 mg/dl (70-99)
[2025-06-02] MEDS: ANCEF 5 IV (17:13)
[2025-06-02 19:50] VITALS: BP 127/89
[2025-06-02] MEDS: FLOMAX 0.4 MG PO (21:01)
[2025-06-02 22:34] LABS: Glucose - Point of Care 76 mg/dl (70-99)
[2025-06-02 23:26] VITALS: BP 119/82
[2025-06-03 03:03] VITALS: BP 109/78
[2025-06-03 06:00] VITALS: BMI 17.0
[2025-06-03 07:00] VITALS: BP 111/82
[2025-06-03 07:46] LABS: Glucose - Point of Care 91 mg/dl (70-99)
[2025-06-03] MEDS: NOVOLOG FLEXPEN-LOW RESISTANCE SC ×3 (07:55→16:50)
[2025-06-03] MEDS: WELLBUTRIN XL (24 hour extended release) 150 MG PO (08:12)
[2025-06-03] MEDS: SENOKOT PO ×2 (08:13→20:46)
[2025-06-03] MEDS: THERAGRAN 1 TABLET PO (08:13)
[2025-06-03] MEDS: VITAMIN C 250 MG PO (08:13)
[2025-06-03] MEDS: VITAMIN B1 100 MG PO (08:13)
[2025-06-03] MEDS: PROSCAR 5 MG PO (08:13)
[2025-06-03] MEDS: NSS (PRESERVATIVE FREE) 10 ML IV (08:14)
[2025-06-03] MEDS: PROTONIX IV 40 MG IV (08:14)
[2025-06-03] MEDS: HEPARIN 5000 UNITS SC ×2 (08:16→20:51)
[2025-06-03] MEDS: OASIS PO ×4 (08:17→20:46)
[2025-06-03] MEDS: LOPRESSOR 12.5 MG PO ×2 (08:19→20:51)
[2025-06-03] MEDS: ANTIFUNGAL CLEAR 1 APPLIC TOPICAL ×2 (08:20→20:45)
[2025-06-03] MEDS: DESENEX/MITRAZOL/ZEASORB 1 APPLIC TOPICAL ×2 (08:20→20:45)
[2025-06-03 11:02] VITALS: BP 102/71
--- NOTE | 2025-06-03 11:27 | WOUNDNOTE ---
WON RN NOTE: Dressings changed on spine and sacrum, checked heels under foams, are intact. Spine with intact sutures, scant drainage mainly proximally, no sign of infection. Xeroform applied then silicone foams. Patient to follow up with surgeon for
removal of sutures when able upon discharge. Sacral foam changed, patient turns easily to sides. Air overlay in use with adequate inflation. Pillow placed under heels. Repositioned patient up in bed with assist of nurse Lira. Encouraged patient to
turn self in bed. No changes to wound care will sign off.
[2025-06-03 11:58] LABS: Glucose - Point of Care 104 mg/dl (70-99)
--- NOTE | 2025-06-03 13:25 | PTCARENOTE ---
1200 Diflucan will be administered after HD. HD initially set at 12 then moved to 1300. HD RN just got into room around [id number]; suggests IV antibiotic to be administered after HD is complete.
[2025-06-03] MEDS: RETACRIT 8000 UNITS IV (14:12)
--- NOTE | 2025-06-03 14:23 | W.PN.HOSP.TC ---
Today's Communication/Plan
-
IV antibiotics for MSSA wound infection and bacteremia through 06/10
Completing empiric course of Diflucan for candidal esophagitis
HD
Monitor oral intake
Physiatry evaluation and rehab placement hopefully next week
Assessment / Plan
Assessment / Plan
A/P:
Initial presentation
49M with metastatic renal cell carcinoma who transferred from [facility] to following a prolonged hospitalization for worsening malignant soft tissue in the spinal canal with severe spinal stenosis, s/p artery embolization and spinal surgery, c/b spinal
wound infection with wound dehiscence and MSSA bacteremia s/p washout with placement of wound vac and treated with prolonged coarse of IV Ancef. Since transfer he has removed his DHT and refuses replacement, however has minimal po intake and is
deconditioned.
Diagnosis present prior to admission:
Metastatic Renal Cell Carcinoma
MSSA Bacteremia
Anxiety / Depression
Chronic Pain with Opioid Dependence
Hospital course and A/P by problem:
1. MSSA Bacteremia secondary to Spinal Infection
- Continue cefazolin 2gm q12h through Jun 10
- Will likely need chronic cefadroxil afterwards
- Follow-up schedule with ID at [place]
-Continue wound care.
�Bilateral JEEVAN drain, monitor output daily. Consider removing drains if output less than 30 mL in 2 consecutive days.
�Wound VAC removed on May 11
Yesterday's plastic note:
'I was asked of the Hospitalist team to interface with [facility] to discuss drain removal.
Nurse from [facility] reports that he is overdue for drain removal and has missed postop appointments.
Spoke with Dr. Heather Adkins, his plastic surgeon and confirmed she desired one drain to me removed at present.
Spoke with the patient and also reviewed postop course and drain outputs. He was in agreement that they meet criteria.
One drain removed without incident 05/29. Ideally, he will follow up with his surgical team for second drain removal.
If he remains in house for a number of weeks, can revisit second drain removal.'
2. Metastatic Renal Cell Carcinoma
met to Spinal Column Metastasis
s/p Left L1 & B/L L2 Segmental Artery Embolization (03/30/25);
T12-L2 laminectomy, Left L1/2 corpectomy, T11-L4 fusion (03/31/25);
Thoracolumbar Wound Washout with PRS closure (04/30/2025).
In review of recent PET/CT on 02/27/2025 there is also high FDG activity/pulmonary nodule left upper lobe.
oncology signed off, rec
'OP follow up with [facility] oncologist recommended after discharge to discuss systemic therapy options base on resolution of infection,
renal function, nutritional status, and performance status.'
MRI of the brain, ordered with persistent nausea and emesis and concern for central symptoms, negative for intracranial disease.
3. Acute kidney injury with Elevated anion gap metabolic acidosis.
Status post left nephrectomy for RCC.
Obstructive uropathy with right JJ stent placed on 05/05/2025
E[address] catheter in place.
repeat UA
Urine sodium 115
Noted with mild elevation of proteinase 3 at 36.
Isolated with unknown significance.
Unlikely vasculitis.
Patient would be a poor candidate for renal biopsy due to solitary R kidney
Renal ultrasound -medical renal disease.
Appreciate nephrology input, dialysis started 05/18/25
Continue dialysis as per nephrology. Plan for HD tomorrow
4. Hypokalemia
Follow and replete
5. Chronic normocytic anemia
Iron studies indicative of mild iron deficiency and anemia of chronic disease. Per heme/onc, no role for supplementation
Erythropoietin level of 4, low end of normal range.
Follow hemoglobin, transfuse if Hgb<7
6. Pain Management
-Patient previously on Morphine ER which was switched to Morphine IR when DHT was placed
-Patient had been refusing scheduled doses of narcotics
-Continue oxycodone PRN
7. Severe Protein Calorie Malnutrition with Persistent nausea with odynophagia
DHT placed at [place], has since been removed. Patient does not want it replaced.
Patient reports no swallowing issues, although with persistent nausea and vomiting and metallic taste preventing sufficient oral intake.
Persistent nausea and vomiting with minuscule oral intake possibly multifactorial in the settings of uremia. Opioids stopped.
Exam with no thrush in oral cavity, although initiated empirically on nystatin on 05/12.
Cont biotene, chloraseptic spray
MRI of the brain with no evidence of intracranial metastatic disease leaning away from central nausea.
Some improvement of oral intake with initiation of hemodialysis hopefully indicative of possibly uremia contributing to symptoms.
Trial of Remeron and Zofran led to increased QTc.
Discontinued.
QTc improved
8. Concern for esophageal candidiasis
With persistent odynophagia will start empiric treatment with Diflucan.
Continue acid suppression increasing Protonix to 40 mg IV twice daily.
EGD 05/25 with no abnormalities.
Plan is to complete empiric treatment with Diflucan for 14 days through 06/04
9. Vasovagal episode/presyncope on 05/20.
No focal findings on neurologic examination.
Slight mild hypoglycemia with blood glucose of 74.
Monitor closely for hypotension.
10. Sinus tachycardia at HD on 05/27
Episode of SVT
Asymptomatic
ECG sinus tach
Monitor on telemetry
Pro CHF BNP mildly elevated at 790
Echocardiogram with preserved biventricular function and no evidence for RV strain
Lower extremity Dopplers negative
Hemoglobin has been stable
Initiated a low-dose of Lopressor 12.5 mg twice daily
11. Prolonged QTc
Stopped Remeron and Zofran
Improved
Avoid QT prolonging medications
12. Stage I coccyx pressure injury present on admission.
Continue care
13. Anxiety / Depression
-Continue bupropion
14. Deconditioning
-PM&R rec acute rehab once eating well or other nutrition plan in place
DVT proph: SC Heparin
Code Status: Full Code
Dispo - acute inpatient rehab
Anticipated Discharge: > 48 hours
Subjective/Interval History
-
Date of Service: June 03, 2025
Objective Data
-
Labs:
Laboratory Results
06/03/25
13:57
Sodium Pending
Potassium Pending
Chloride Pending
Carbon Dioxide Pending
BUN Pending
Creatinine Pending
Glucose Pending
Calcium Pending
Vital Signs:
Vital Signs
Temp Pulse Resp BP Pulse Ox
97.6 F 100 16 102/71 99
06/03/25 11:02 06/03/25 11:02 06/03/25 11:02 06/03/25 11:02 06/03/25 11:02
I&O
06/02/25 06/03/25 06/04/25
06:59 06:59 06:59
Intake Total 980 / 980
Output Total 700 / 700 800 / 800
Balance -700 / -700 180 / 180
Physical Exam
-
General: Well Developed, No Apparent Distress, Comfortable and Appears Chronically Ill
HEENT: Normocephalic, Atraumatic and Moist Mucous Membranes
Respiratory: Clear to Auscultation
Cardiac: Regular Rhythm and S1/S2
GI: Soft, Nontender and Nondistended
Musculoskeletal: No Clubbing, No Cyanosis and No Edema
Skin: Warm and Dry
Neuro: Awake, Alert and Oriented
Psych: Calm
[2025-06-03 14:26] LABS: Blood Urea Nitrogen 10 mg/dl (9-20); Calcium 7.8 mg/dl (8.4-10.2); Carbon Dioxide 30 mmol/L (22-30); Chloride 97 mmol/L (98-107); Estimated Creatinine Clearance 34 ml/min; Glucose 100 mg/dl (70-99); Magnesium 1.9 mg/dl (1.6-2.3); Potassium 3.4 mmol/L (3.5-5.1); Sodium 130 mmol/L (135-145); eGFR 42.18
[2025-06-03 15:00] VITALS: BP 107/63
--- NOTE | 2025-06-03 15:20 | W.PN.NEPH.HD ---
Assessment
-
patient seen on HD
sbp at 103 with no u/f
HD via catheter
Progress Note - Hemodialysis
-
Date of Service: June 03, 2025
Duration: 30 minutes and 3 hours
Potassium Bath: 4
Calcium Bath: 2.5
Opti-Dialyzer: 160
Ultrafiltration: Other (none)
Blood Flow: 400
Dialysate Flow: 600
Heparin: none
EPO: 8K
[2025-06-03 16:40] LABS: Glucose - Point of Care 103 mg/dl (70-99)
[2025-06-03] MEDS: DIFLUCAN 200 MG 100 IV (16:42)
[2025-06-03] MEDS: ANCEF 5 IV (18:32)
[2025-06-03 19:00] VITALS: BP 119/86
[2025-06-03 20:49] LABS: Glucose - Point of Care 122 mg/dl (70-99)
[2025-06-03] MEDS: PROTONIX 40 MG PO (20:52)
[2025-06-03] MEDS: FLOMAX 0.4 MG PO (20:53)
[2025-06-03 23:00] VITALS: BP 106/76
[2025-06-04 03:00] VITALS: BP 110/77
[2025-06-04 05:32] VITALS: BMI 17.1
[2025-06-04 07:47] VITALS: BP 107/75
[2025-06-04 07:55] LABS: Glucose - Point of Care 85 mg/dl (70-99)
[2025-06-04] MEDS: NOVOLOG FLEXPEN-LOW RESISTANCE SC ×3 (08:23→17:40)
[2025-06-04] MEDS: THERAGRAN PO (08:26)
[2025-06-04] MEDS: VITAMIN B1 PO (08:26)
[2025-06-04] MEDS: SENOKOT PO ×2 (08:26→20:10)
[2025-06-04] MEDS: VITAMIN C PO (08:26)
[2025-06-04] MEDS: OASIS PO ×4 (08:26→21:58)
[2025-06-04] MEDS: PROSCAR 5 MG PO (08:29)
[2025-06-04] MEDS: WELLBUTRIN XL (24 hour extended release) 150 MG PO (08:29)
[2025-06-04] MEDS: PROTONIX 40 MG PO ×2 (08:29→20:09)
[2025-06-04] MEDS: HEPARIN 5000 UNITS SC ×2 (08:30→20:08)
[2025-06-04] MEDS: LOPRESSOR 12.5 MG PO ×2 (08:33→20:08)
[2025-06-04] MEDS: ANTIFUNGAL CLEAR 1 APPLIC TOPICAL ×2 (08:34→20:11)
[2025-06-04] MEDS: DESENEX/MITRAZOL/ZEASORB 1 APPLIC TOPICAL ×2 (08:34→20:10)
--- NOTE | 2025-06-04 09:54 | PTCARENOTE ---
pt aaox3. states no pain. pt refusing bowel meds and vitamins. dressing on back c/d/i. left milli drain intact. lovett care done.
--- NOTE | 2025-06-04 10:39 | W.PN.NEPH.PH ---
Today's Communication / Plan
-
HD sunday
Assessment/Plan
-
IMP:
POLA
Metastatic Renal Cell Carcinoma with Spinal Column Metastasis and subsequent Spinal Infection s/p Left L1 & B/L L2 Segmental Artery Embolization (03/30/25); T12-L2 laminectomy, Left L1/2 corpectomy, T11-L4 fusion (03/31/25); Thoracolumbar Wound
Washout with PRS closure (04/30/2025).
recent PET/CT on 02/27/2025 there is also high FDG activity/pulmonary nodule left upper lobe.
MSSA Bacteremia secondary to Spinal Infection
Status post left nephrectomy for RCC.
Acute urine retention
Obstructive uropathy with right JJ stent placed on 05/05/2025
Elevated anion gap metabolic acidosis.
Chronic normocytic anemia
Severe Protein Calorie Malnutrition
Anxiety / Depression
Hyperalbuminemia
Plan:
HD tomorrow
he remains non oliguric with lovett
Diflucan started for suspected esophageal vance
hemodynamically stable
-
-
Date of Service: June 04, 2025
CC / HPI / ROS
-
Chief Complaint:
POLA
History of Present Illness:
POLA/Cr HD started for uremia now on Sunday schedule
Hgb stable
BP stable
Na 130 stable low
tolerated HD yesterday
Review of Systems:
no CP/SOB
nonoliguric with lovett
Labs
-
Labs:
WBC 4.3 10^3/uL (4.8-10.8) L 05/31/25 07:31
RBC 2.82 10^6/uL (4.70-6.10) L 05/31/25 07:31
Hgb 8.3 g/dL (13.0-18.0) L 06/01/25 16:57
Hct 26.0 % (39.0-52.0) L 06/01/25 16:57
Plt Count 250 10^3/uL (130-400) 05/31/25 07:31
Sodium 130 mmol/L (135-145) L 06/03/25 13:57
Potassium 3.4 mmol/L (3.5-5.1) L 06/03/25 13:57
Chloride 97 mmol/L (98-107) L 06/03/25 13:57
Carbon Dioxide 30 mmol/L (22-30) 06/03/25 13:57
BUN 10 mg/dl (9-20) 06/03/25 13:57
Creatinine 1.9 mg/dL (0.7-1.3) H 06/03/25 13:57
eGFR 42.18 06/03/25 13:57
Glucose 100 mg/dl (70-99) H 06/03/25 13:57
Calcium 7.8 mg/dl (8.4-10.2) L 06/03/25 13:57
Phosphorus 2.9 mg/dl (2.5-4.5) 05/29/25 08:25
Neb-G-Qvaqvohjymq Pept Cancelled 05/27/25 12:44
Albumin 2.7 g/dl (3.5-5.0) L 05/29/25 08:25
Physical Exam
-
Vital Signs:
Vital Signs
Temp Pulse Resp BP Pulse Ox
97.4 F 101 16 107/75 94
06/04/25 07:47 06/04/25 08:33 06/04/25 07:47 06/04/25 08:33 06/04/25 07:47
Cardiovascular:: Regular rate and rhythm
Respiratory:: Bilateral: CTA
Lung Excursion:: Normal
Abdomen:: Nontender and Soft
Bowel Sounds:: Normal
Extremity Edema:: None: Bilateral:
--- NOTE | 2025-06-04 11:45 | W.PN.HOSP.TC ---
Today's Communication/Plan
-
cont Abx
manage hypokalemia with HD as per nephro
Patient still complaing off poor swallowing - will discuss PEG tube to increase calorie intake so functional status can be improved for further planned treatment
Assessment / Plan
Assessment / Plan
A/P:
Initial presentation
49M with metastatic renal cell carcinoma who transferred from [facility] to following a prolonged hospitalization for worsening malignant soft tissue in the spinal canal with severe spinal stenosis, s/p artery embolization and spinal surgery, c/b spinal
wound infection with wound dehiscence and MSSA bacteremia s/p washout with placement of wound vac and treated with prolonged coarse of IV Ancef. Since transfer he has removed his DHT and refuses replacement, however has minimal po intake and is
deconditioned.
Diagnosis present prior to admission:
Metastatic Renal Cell Carcinoma
MSSA Bacteremia
Anxiety / Depression
Chronic Pain with Opioid Dependence
Hospital course and A/P by problem:
1. MSSA Bacteremia secondary to Spinal Infection
- Continue cefazolin 2gm q12h through Jun 10
- Will likely need chronic cefadroxil afterwards
- Follow-up schedule with ID at [place]
-Continue wound care.
�Bilateral JEEVAN drain, monitor output daily. Consider removing drains if output less than 30 mL in 2 consecutive days.
�Wound VAC removed on May 11
Yesterday's plastic note:
'I was asked of the Hospitalist team to interface with [facility] to discuss drain removal.
Nurse from [place] reports that he is overdue for drain removal and has missed postop appointments.
Spoke with Dr. Heather Adkins, his plastic surgeon and confirmed she desired one drain to me removed at present.
Spoke with the patient and also reviewed postop course and drain outputs. He was in agreement that they meet criteria.
One drain removed without incident 05/29. Ideally, he will follow up with his surgical team for second drain removal.
If he remains in house for a number of weeks, can revisit second drain removal.'
2. Metastatic Renal Cell Carcinoma
met to Spinal Column Metastasis
s/p Left L1 & B/L L2 Segmental Artery Embolization (03/30/25);
T12-L2 laminectomy, Left L1/2 corpectomy, T11-L4 fusion (03/31/25);
Thoracolumbar Wound Washout with PRS closure (04/30/2025).
In review of recent PET/CT on 02/27/2025 there is also high FDG activity/pulmonary nodule left upper lobe.
oncology signed off, rec
'OP follow up with [facility] oncologist recommended after discharge to discuss systemic therapy options base on resolution of infection,
renal function, nutritional status, and performance status.'
MRI of the brain, ordered with persistent nausea and emesis and concern for central symptoms, negative for intracranial disease.
3. Acute kidney injury with Elevated anion gap metabolic acidosis.
Status post left nephrectomy for RCC.
Obstructive uropathy with right JJ stent placed on 05/05/[address]25
[address] catheter in place.
repeat UA
Urine sodium 115
Noted with mild elevation of proteinase 3 at 36.
Isolated with unknown significance.
Unlikely vasculitis.
Patient would be a poor candidate for renal biopsy due to solitary R kidney
Renal ultrasound -medical renal disease.
Appreciate nephrology input, dialysis started 05/18/25
Continue dialysis as per nephrology. Plan for HD tomorrow
4. Hypokalemia
Follow and replete
5. Chronic normocytic anemia
Iron studies indicative of mild iron deficiency and anemia of chronic disease. Per heme/onc, no role for supplementation
Erythropoietin level of 4, low end of normal range.
Follow hemoglobin, transfuse if Hgb<7
6. Pain Management
-Patient previously on Morphine ER which was switched to Morphine IR when DHT was placed
-Patient had been refusing scheduled doses of narcotics
-Continue oxycodone PRN
7. Severe Protein Calorie Malnutrition with Persistent nausea with odynophagia
DHT placed at [place], has since been removed. Patient does not want it replaced.
Patient reports no swallowing issues, although with persistent nausea and vomiting and metallic taste preventing sufficient oral intake.
Persistent nausea and vomiting with minuscule oral intake possibly multifactorial in the settings of uremia. Opioids stopped.
Exam with no thrush in oral cavity, although initiated empirically on nystatin on 05/12.
Cont biotene, chloraseptic spray
MRI of the brain with no evidence of intracranial metastatic disease leaning away from central nausea.
Some improvement of oral intake with initiation of hemodialysis hopefully indicative of possibly uremia contributing to symptoms.
Trial of Remeron and Zofran led to increased QTc.
Discontinued.
QTc improved
8. Concern for esophageal candidiasis
With persistent odynophagia will start empiric treatment with Diflucan.
Continue acid suppression increasing Protonix to 40 mg IV twice daily.
EGD 05/25 with no abnormalities.
Plan is to complete empiric treatment with Diflucan for 14 days through 06/04
9. Vasovagal episode/presyncope on 05/20.
No focal findings on neurologic examination.
Slight mild hypoglycemia with blood glucose of 74.
Monitor closely for hypotension.
10. Sinus tachycardia at HD on 05/27
Episode of SVT
Asymptomatic
ECG sinus tach
Monitor on telemetry
Pro CHF BNP mildly elevated at 790
Echocardiogram with preserved biventricular function and no evidence for RV strain
Lower extremity Dopplers negative
Hemoglobin has been stable
Initiated a low-dose of Lopressor 12.5 mg twice daily
11. Prolonged QTc
Stopped Remeron and Zofran
Improved
Avoid QT prolonging medications
12. Stage I coccyx pressure injury present on admission.
Continue care
13. Anxiety / Depression
-Continue bupropion
14. Deconditioning
-PM&R rec acute rehab once eating well or other nutrition plan in place
DVT proph: SC Heparin
Code Status: Full Code
Dispo - acute inpatient rehab
Anticipated Discharge: > 48 hours
Subjective/Interval History
-
Date of Service: June 04, 2025
Objective Data
-
Vital Signs:
Vital Signs
Temp Pulse Resp BP Pulse Ox
97.4 F 101 16 107/75 94
06/04/25 07:47 06/04/25 08:33 06/04/25 07:47 06/04/25 08:33 06/04/25 07:47
I&O
06/03/25 06/04/25 06/05/25
06:59 06:59 06:59
Intake Total 980 / 980 885 / 885
Output Total 800 / 800 430 / 430
Balance 180 / 180 455 / 455
Review of Systems
-
History Source: Patient
All other systems: Reviewed and negative
Physical Exam
-
General: Cachectic
Respiratory: Clear to Auscultation
Cardiac: Regular Rhythm
GI: Soft, Nontender and Nondistended
Neuro: Awake, Alert, Oriented, AO x 3 and Tremors
Psych: Calm
[2025-06-04 11:47] VITALS: BP 100/69
[2025-06-04 13:06] LABS: Glucose - Point of Care 125 mg/dl (70-99)
[2025-06-04] MEDS: DIFLUCAN 200 MG 100 IV (13:21)
[2025-06-04 16:30] VITALS: BP 117/76
[2025-06-04 17:13] LABS: Glucose - Point of Care 90 mg/dl (70-99)
[2025-06-04] MEDS: ANCEF 5 IV (17:48)
[2025-06-04 19:50] VITALS: BP 117/78
[2025-06-04 21:39] LABS: Glucose - Point of Care 79 mg/dl (70-99)
[2025-06-04] MEDS: FLOMAX 0.4 MG PO (22:00)
[2025-06-04 23:22] VITALS: BP 107/69
[2025-06-05] VITALS (7 sets, daily range): BP systolic 94–111; BP diastolic 57–78; PULSE 91; BMI 17.1
[2025-06-05 08:09] LABS: Glucose - Point of Care 78 mg/dl (70-99)
[2025-06-05] MEDS: NOVOLOG FLEXPEN-LOW RESISTANCE SC ×3 (08:11→16:57)
[2025-06-05] MEDS: PROTONIX 40 MG PO ×2 (08:21→22:06)
[2025-06-05] MEDS: THERAGRAN PO (08:22)
[2025-06-05] MEDS: SENOKOT PO ×2 (08:22→22:00)
[2025-06-05] MEDS: PROSCAR 5 MG PO (08:22)
[2025-06-05] MEDS: COMPAZINE 5 MG IV (08:25)
[2025-06-05] MEDS: VITAMIN B1 100 MG PO (08:28)
[2025-06-05] MEDS: VITAMIN C PO (08:28)
[2025-06-05] MEDS: OASIS PO ×4 (08:28→22:05)
[2025-06-05] MEDS: LOPRESSOR 12.5 MG PO ×2 (08:28→22:04)
[2025-06-05] MEDS: WELLBUTRIN XL (24 hour extended release) 150 MG PO (08:28)
[2025-06-05] MEDS: DESENEX/MITRAZOL/ZEASORB 1 APPLIC TOPICAL ×2 (08:29→22:02)
[2025-06-05] MEDS: HEPARIN 5000 UNITS SC ×2 (08:29→22:03)
[2025-06-05] MEDS: ANTIFUNGAL CLEAR 1 APPLIC TOPICAL ×2 (08:29→22:01)
--- NOTE | 2025-06-05 11:24 | W.PN.HOSP.TC ---
Today's Communication/Plan
-
pending physiatry eval
Assessment / Plan
Assessment / Plan
49yo M with PMHx of past medical history notable for metastatic RCC (s/p prior nephrectomy 12/2024) complicated by spinal mets and spinal infection (s/p prior washout ) with MSSA bacteremia, obstructive uropathy (s/p R JJ stent 04/2025),
previous uremia (s/p iHD), severe protein calorie malnutrition (s/p previous DHT) and ongoing nausea and odynophagia, CKD Initially presented on 03/27/25 to with worsening b/l LE weakness and found malignant soft tissue compressing spinal canal.
Had decompression and emolization done in [facility], then developed complication with spinal postOP wound infection with wound dehiscence and MSSA bacteremia s/p washout and woundVAc planned on Ancef till 06/10/25 and then chronic suppressive therapy.
Patient found hydronephrosis of his solitary R kidney and JJ stent placed. Developed worsening POLA finally requiring HD started on 05/18/25. Found elevated PR3, however with active infection and uncertain clinical value of this positive test - renal
biopsy and Rituxan therapy was declined by nephrology.
Patient with poor oral intake since developed feeling of dysphagia after recent surgery. Self-removed NG tube and declined PEG, planning to increase his oral intake to be able to improve calorie balance. GI called for nausea and odynophagia, so GI
did EGD on 05/25/25 without esophagitis, ulcerations or abnormalities, multiple gastric polyps seen, patchy erythema of duodenal bulb. GI advised empiric fluconazole for 14 days due to Hx of esophageal candidiasis. Plastic Sx consulted on 05/30/25
for postOP drain removal due to missed planned appt with current hospitalization. PT/OT recommended acute rehab, pending physiatry eval
A/P:
#Ambulatory deficiency
PT/OT recommends acute rehab
Physiatry consult
#Dysphagia and odynophagia with severe protein calorie malnutrition
#Possible esophageal candidiasis
s/p EGD
empiric Fluconazole till 06/08/25 (2 weeks since EGD)
Patient self-removed NG tube and currently declining PEG - had prolonged conversation with patient mentioning functional status needed for continuation of the cancer treatment. He still would like to attempt to wait for resolution of odynophagia
rather then placing PEG. WIll keep discussion
#POLA, possible developing ESRD with anuria
#Hypokalemia
control electrolytes with HD
initiated HD
Nephro follows
follow electrolytes
US renal on 05/08/25:Eldridge catheter is present within the bladder, with estimated bladder volume of 70 cc. No ureteral jets are demonstrated.Status post left nephrectomy.Right ureteral stent is visualized. Mild right pelvicalyceal
dilation.Echogenicity of the right kidney appears diffusely increased relative to the liver, a nonspecific finding suggesting medical renal disease.
#Recurrent emesis
MRI brain on 05/14/25: without signs of brain mets. DJD with mild C4/C5 and C5/C6 disk-osteophyte complexes causing mild spinal cord compression
#Chronic anemia
multifactorial - due to POLA, CA, infection, postOP blood loss
Follow Hgb
Epo as per Nephro, but with active CA - might be not an option
#Vasovagal syncope
on 05/20/25
probably 2/2 prolonged hospitalization and deconditioning with poor oral intake
#Chronic PAIn
2/2 CA
pain mgmt
#SVT
#Prolonged QTc
Avoid QT prolonging meds
V/Q scan low prob of PE on 05/28/25
#spinal postOP infection complicated with MSSA bacteremia
Ancef till 06/10/25
Chronic cefadroxil afterwards. To follow with [facility] ID
Wound VAc removed on 05/11/25
b/l JEEVAN drains -watch for output, if <30ml x2 days - remove. Plastic Sx to follow as needed
#Metastatic RCC with mets to spine
s/p L nephrectomy
s/p Left L1 & B/L L2 Segmental Artery Embolization (03/30/25);
T12-L2 laminectomy, Left L1/2 corpectomy, T11-L4 fusion (03/31/25);
Thoracolumbar Wound Washout with PRS closure (04/30/2025)
Outpatient follow up with established oncologist in [facility]
#Stage I coccyx pressure injury present on admission.
Wound care
#Anxiety / Depression
Continue bupropion
DVT ppx hep
Full code
I have spent at [facility] 70min reviewing chart, test results and providing direct patient care
Anticipated Discharge: > 48 hours
Subjective/Interval History
-
Date of Service: June 05, 2025
Objective Data
-
Vital Signs:
Vital Signs
Temp Pulse Resp BP Pulse Ox
97.6 F 64 16 100/57 97
06/05/25 11:13 06/05/25 11:13 06/05/25 11:13 06/05/25 11:13 06/05/25 11:13
I&O
06/04/25 06/05/25 06/06/25
06:59 06:59 06:59
Intake Total 885 / 885 720 / 720
Output Total 430 / 430 560 / 560
Balance 455 / 455 160 / 160
Review of Systems
-
History Source: Patient
All other systems: Reviewed and negative
Physical Exam
-
General: No Apparent Distress
HEENT: Normocephalic
Respiratory: Clear to Auscultation
Neuro: Awake, Alert, Oriented and Tremors
Psych: Calm
[2025-06-05 11:56] LABS: Glucose - Point of Care 110 mg/dl (70-99)
[2025-06-05] MEDS: DIFLUCAN 200 MG 100 MG IV (12:50)
--- NOTE | 2025-06-05 14:23 | W.PN.NEPH.PH ---
Today's Communication / Plan
-
HD tomorrow
Assessment/Plan
-
IMP:
POLA
Metastatic Renal Cell Carcinoma with Spinal Column Metastasis and subsequent Spinal Infection s/p Left L1 & B/L L2 Segmental Artery Embolization (03/30/25); T12-L2 laminectomy, Left L1/2 corpectomy, T11-L4 fusion (03/31/25); Thoracolumbar Wound
Washout with PRS closure (04/30/2025).
recent PET/CT on 02/27/2025 there is also high FDG activity/pulmonary nodule left upper lobe.
MSSA Bacteremia secondary to Spinal Infection
Status post left nephrectomy for RCC.
Acute urine retention
Obstructive uropathy with right JJ stent placed on 05/05/2025
Elevated anion gap metabolic acidosis.
Chronic normocytic anemia
Severe Protein Calorie Malnutrition
Anxiety / Depression
Hyperalbuminemia
Plan:
HD tomorrow
he remains non oliguric with lovett
Diflucan started for suspected esophageal vance
hemodynamically stable
Consideration for feeding tube
-
-
Date of Service: June 05, 2025
CC / HPI / ROS
-
Chief Complaint:
POLA
History of Present Illness:
POLA/Cr HD started for uremia now on Sunday schedule
Hgb stable
BP stable
tolerated HD Sunday
Review of Systems:
no CP/SOB
nonoliguric with lovett
Still with vomiting
Labs
-
Labs:
WBC 4.3 10^3/uL (4.8-10.8) L 05/31/25 07:31
RBC 2.82 10^6/uL (4.70-6.10) L 05/31/25 07:31
Hgb 8.3 g/dL (13.0-18.0) L 06/01/25 16:57
Hct 26.0 % (39.0-52.0) L 06/01/25 16:57
Plt Count 250 10^3/uL (130-400) 05/31/25 07:31
Sodium 130 mmol/L (135-145) L 06/03/25 13:57
Potassium 3.4 mmol/L (3.5-5.1) L 06/03/25 13:57
Chloride 97 mmol/L (98-107) L 06/03/25 13:57
Carbon Dioxide 30 mmol/L (22-30) 06/03/25 13:57
BUN 10 mg/dl (9-20) 06/03/25 13:57
Creatinine 1.9 mg/dL (0.7-1.3) H 06/03/25 13:57
eGFR 42.18 06/03/25 13:57
Glucose 100 mg/dl (70-99) H 06/03/25 13:57
Calcium 7.8 mg/dl (8.4-10.2) L 06/03/25 13:57
Phosphorus 2.9 mg/dl (2.5-4.5) 05/29/25 08:25
Zyu-C-Wuvavjbqzye Pept Cancelled 05/27/25 12:44
Albumin 2.7 g/dl (3.5-5.0) L 05/29/25 08:25
Physical Exam
-
Vital Signs:
Vital Signs
Temp Pulse Resp BP Pulse Ox
97.6 F 64 16 100/57 97
06/05/25 11:13 06/05/25 11:13 06/05/25 11:13 06/05/25 11:13 06/05/25 11:13
Cardiovascular:: Regular rate and rhythm
Respiratory:: Bilateral: Coarse
Lung Excursion:: Normal
Abdomen:: Nontender and Soft
Bowel Sounds:: Normal
Extremity Edema:: None: Bilateral:
[2025-06-05 16:56] LABS: Glucose - Point of Care 119 mg/dl (70-99)
[2025-06-05] MEDS: ANCEF 5 IV (17:32)
[2025-06-05] MEDS: FLOMAX 0.4 MG PO (21:59)
[2025-06-05 22:26] LABS: Glucose - Point of Care 97 mg/dl (70-99)
[2025-06-06 03:27] VITALS: BP 108/70
[2025-06-06 06:00] VITALS: BMI 16.9
[2025-06-06 07:00] VITALS: BP 108/69
[2025-06-06 08:18] LABS: Glucose - Point of Care 86 mg/dl (70-99)
[2025-06-06] MEDS: LOPRESSOR 12.5 MG PO ×2 (08:47→21:56)
[2025-06-06] MEDS: SENOKOT PO ×2 (08:47→21:57)
[2025-06-06] MEDS: OASIS PO ×4 (08:47→21:57)
[2025-06-06] MEDS: VITAMIN C PO (08:47)
[2025-06-06] MEDS: THERAGRAN PO (08:47)
[2025-06-06] MEDS: WELLBUTRIN XL (24 hour extended release) 150 MG PO (08:48)
[2025-06-06] MEDS: HEPARIN 5000 UNITS SC ×2 (08:48→21:56)
[2025-06-06] MEDS: PROTONIX 40 MG PO ×2 (08:52→21:56)
[2025-06-06] MEDS: VITAMIN B1 100 MG PO (08:52)
[2025-06-06] MEDS: PROSCAR 5 MG PO (08:52)
[2025-06-06] MEDS: DIFLUCAN 200 MG 100 IV (08:52)
[2025-06-06] MEDS: ANTIFUNGAL CLEAR 1 APPLIC TOPICAL ×2 (08:57→21:55)
[2025-06-06] MEDS: DESENEX/MITRAZOL/ZEASORB 1 APPLIC TOPICAL ×2 (08:57→21:55)
[2025-06-06] MEDS: NOVOLOG FLEXPEN-LOW RESISTANCE SC ×3 (08:58→16:46)
--- NOTE | 2025-06-06 10:45 | W.PN.HOSP.TC ---
Today's Communication/Plan
-
pending labs
Assessment / Plan
Assessment / Plan
49yo M with PMHx of past medical history notable for metastatic RCC (s/p prior nephrectomy 12/2024) complicated by spinal mets and spinal infection (s/p prior washout ) with MSSA bacteremia, obstructive uropathy (s/p R JJ stent 04/2025),
previous uremia (s/p iHD), severe protein calorie malnutrition (s/p previous DHT) and ongoing nausea and odynophagia, CKD Initially presented on 03/27/25 to with worsening b/l LE weakness and found malignant soft tissue compressing spinal canal.
Had decompression and emolization done in [facility], then developed complication with spinal postOP wound infection with wound dehiscence and MSSA bacteremia s/p washout and woundVAc planned on Ancef till 06/10/25 and then chronic suppressive therapy.
Patient found hydronephrosis of his solitary R kidney and JJ stent placed. Developed worsening POLA finally requiring HD started on 05/18/25. Found elevated PR3, however with active infection and uncertain clinical value of this positive test - renal
biopsy and Rituxan therapy was declined by nephrology.
Patient with poor oral intake since developed feeling of dysphagia after recent surgery. Self-removed NG tube and declined PEG, planning to increase his oral intake to be able to improve calorie balance. GI called for nausea and odynophagia, so GI
did EGD on 05/25/25 without esophagitis, ulcerations or abnormalities, multiple gastric polyps seen, patchy erythema of duodenal bulb. GI advised empiric fluconazole for 14 days due to Hx of esophageal candidiasis. Plastic Sx consulted on 05/30/25
for postOP drain removal due to missed planned appt with current hospitalization. PT/OT recommended acute rehab, pending physiatry eval
A/P:
#Ambulatory deficiency
PT/OT recommends acute rehab
Physiatry consult pending (consult not available on weekend or holidays as per [employer])
#Dysphagia and odynophagia with severe protein calorie malnutrition
#Possible esophageal candidiasis
s/p EGD
empiric Fluconazole till 06/08/25 (2 weeks since EGD)
Patient self-removed NG tube and currently declining PEG - had prolonged conversation with patient mentioning functional status needed for continuation of the cancer treatment. He still would like to attempt to wait for resolution of odynophagia
rather then placing PEG. As per patient - pain is much improved and his oral intake is better
#POLA, possible developing ESRD with anuria
#Hypokalemia
control electrolytes with HD
initiated HD
Nephro follows
follow electrolytes
US renal on 05/08/25:Eldridge catheter is present within the bladder, with estimated bladder volume of 70 cc. No ureteral jets are demonstrated.Status post left nephrectomy.Right ureteral stent is visualized. Mild right pelvicalyceal
dilation.Echogenicity of the right kidney appears diffusely increased relative to the liver, a nonspecific finding suggesting medical renal disease.
#Recurrent emesis
MRI brain on 05/14/25: without signs of brain mets. DJD with mild C4/C5 and C5/C6 disk-osteophyte complexes causing mild spinal cord compression
#Chronic anemia
multifactorial - due to POLA, CA, infection, postOP blood loss
Follow Hgb
Epo as per Nephro, but with active CA - might be not an option
#Vasovagal syncope
on 05/20/25
probably 2/2 prolonged hospitalization and deconditioning with poor oral intake
#Chronic PAIn
2/2 CA
pain mgmt
#SVT
#Prolonged QTc
Avoid QT prolonging meds
V/Q scan low prob of PE on 05/28/25
#spinal postOP infection complicated with MSSA bacteremia
Ancef till 06/10/25
Chronic cefadroxil afterwards. To follow with [facility] ID
Wound VAc removed on 05/11/25
b/l JEEVAN drains -watch for output, if <30ml x2 days - remove. Plastic Sx to follow as needed
#Metastatic RCC with mets to spine
s/p L nephrectomy
s/p Left L1 & B/L L2 Segmental Artery Embolization (03/30/25);
T12-L2 laminectomy, Left L1/2 corpectomy, T11-L4 fusion (03/31/25);
Thoracolumbar Wound Washout with PRS closure (04/30/2025)
Outpatient follow up with established oncologist in [facility]
#Stage I coccyx pressure injury present on admission.
Wound care
#Anxiety / Depression
Continue bupropion
DVT ppx hep
Full code
I have spent at [facility] 36min reviewing chart, test results and providing direct patient care
Anticipated Discharge: > 48 hours
Subjective/Interval History
-
Date of Service: June 06, 2025
Objective Data
-
Labs:
Laboratory Results
06/06/25
06:00
WBC Pending
Hgb Pending
Hct Pending
Plt Count Pending
Sodium Pending
Potassium Pending
Chloride Pending
Carbon Dioxide Pending
BUN Pending
Creatinine Pending
Glucose Pending
Calcium Pending
Total Bilirubin Pending
AST Pending
ALT Pending
Alkaline Phosphatase Pending
Vital Signs:
Vital Signs
Temp Pulse Resp BP Pulse Ox
97.9 F 99 18 108/69 96
06/06/25 07:00 06/06/25 08:47 06/06/25 07:00 06/06/25 08:47 06/06/25 07:00
I&O
06/05/25 06/06/25 06/07/25
06:59 06:59 06:59
Intake Total 720 / 720
Output Total 560 / 560 10 / 10
Balance 160 / 160 -10 / -10
Review of Systems
-
History Source: Patient
All other systems: Reviewed and negative
Physical Exam
-
General: No Apparent Distress
Neuro: Awake, Alert, Oriented, AO x 3 and Tremors
Psych: Calm
[2025-06-06 11:00] VITALS: BP 102/70
--- NOTE | 2025-06-06 12:23 | W.PN.UPDATE ---
Addendum entered and electronically signed by Wale Elias MD 06/06/25 13:13:
Labs with non-specific findings such as leukopenia and monocytosis, elevated Cr in pt with POLA on HD. No significant BUN elevation to justify uremic cause. Most likely either in hospital delirium in significantly sick person vs iatrogenic. Diflucan
sometimes can cause hallucinations - will stop, since patient received 12 days of IV meds sufficienct for esophageal candidiasis treatment. Avoid antipsychotics 2/2 QTc prolongation Hx. No focal neurological deficit seen on rounds to justify imaging
Original Note:
Update Note
Progress Note Update
RN reported hallucinations. Not seen during rounds, but apparently started in AM. Labs pending, advised to be done DAVE.
No clear report of the same over the period of stay
--- NOTE | 2025-06-06 12:23 | W.PN.NEPH.HD ---
Assessment
-
Pt seen on HD. no complaints. VSS, access ok
hallucinating
Progress Note - Hemodialysis
-
Date of Service: June 06, 2025
Duration: 3 hours
Potassium Bath: 4
Calcium Bath: 2.5
Opti-Dialyzer: 160
Ultrafiltration: Other (no)
Blood Flow: 400
Dialysate Flow: 600
Heparin: 0
EPO: 8000 units
[2025-06-06 12:29] LABS: Glucose - Point of Care 93 mg/dl (70-99)
[2025-06-06 12:39] LABS: Hematocrit 25.0 % (39.0-52.0); Hemoglobin 7.6 g/dL (13.0-18.0); Mean Corp Hgb Conc. 30.4 g/dL (33.0-37.0); Mean Corpuscular Volume 103.7 fL (80.0-94.0); Nucleated Red Blood Cells % 0 % (-); Platelet Count 228 10^3/uL (130-400); Red Cell Dist. Width 17.3 % (11.5-14.5)
[2025-06-06 12:56] LABS: ALT (SGPT) < 10 U/L (0-50); AST (SGOT) 15 U/L (17-59); Albumin 2.5 g/dl (3.5-5.0); Alkaline Phosphatase 106 U/L (38-126); Blood Urea Nitrogen 16 mg/dl (9-20); Calcium 8.6 mg/dl (8.4-10.2); Carbon Dioxide 28 mmol/L (22-30); Chloride 103 mmol/L (98-107); Estimated Creatinine Clearance 17 ml/min; Glucose 75 mg/dl (70-99); Potassium 4.1 mmol/L (3.5-5.1); Sodium 132 mmol/L (135-145); Total Protein 5.4 g/dl (6.3-8.2); eGFR 18.96
[2025-06-06 15:00] VITALS: BP 104/47
[2025-06-06] MEDS: RETACRIT 8000 UNITS IV (15:09)
[2025-06-06] MEDS: HEPARIN 3900 UNITS INTRACATH (15:10)
[2025-06-06 16:36] LABS: Glucose - Point of Care 103 mg/dl (70-99)
[2025-06-06 18:43] LABS: Glucose - Point of Care 125 mg/dl (70-99)
[2025-06-06] MEDS: ANCEF 5 IV (19:28)
--- NOTE | 2025-06-06 19:51 | FALL ---
Description of Fall:
This RN was in another pt's room when RN heard another nurse yelling 'rapid response, room 330'. RN entered room and found pt kneeling on floor, facing bed, with arms and head leaning onto bed. Pt found to have large amount of stool on floor and on
pt's bottom. RN assessed pt, no injuries or pain noted. Pt denied trying to get OOB to use bathroom. When asked if pt fell OOB, pt stated 'No. I reached my arms over and lowered my legs down onto the floor'. Pt noted to have increased tremors and
visual/auditory hallucinations this shift that have been getting worse, and has been brought up to MD. Pt hallucination at this time and making statements that are not coherent to what is going on. Pt cleaned of stool and assisted back into bed via
3-person lift assist. Pt placed in low low semi-fowlers position. Bed alarm placed under pt. Head-to-toe assessment, vital signs, and blood glucose assessed. No injuries, pain, or any other abnormalities noted. RN from ICU came to respond to rapid
response and this RN gave report to other RN, who then messaged the maru pittman MD. Pt has no further requests or needs at this time.
Injuries Noted:
No injuries noted
Action Taken:
Pt assessed. MD made aware of event. Bed alarm placed. Pt to be monitored closely.
Name of Provider Notified:
Adamaris Soria MD
[2025-06-06 20:00] VITALS: BP 133/82
[2025-06-06] MEDS: FLOMAX 0.4 MG PO (21:56)
[2025-06-06 22:01] LABS: Glucose - Point of Care 90 mg/dl (70-99)
[2025-06-06 23:00] VITALS: BP 125/97
--- NOTE | 2025-06-06 23:16 | PTCARENOTE ---
This RN was notified by the patient healthcare receptionist that the patient was found on the floor. The tech reported that she heard the bed alarm sounding and upon entering the patients room, observed the patient on the floor. The patient stated that he rolled
himself onto the floor in an attempt to retrieve his laptop. [facility] staff had reported earlier that the patient was experiencing auditory and visual hallucinations; however, the patient did not appear to be hallucinating at the time of this fall.
The patient had sustained a previous fall a few hours prior to this incident. All fall-prevention measures had been in place at the time of the incident, including bed alarm. Upon assessment, the patient was alert and oriented. He denied hitting his
head. Vital signs were obtained; heart rate was elevated initially but returned to baseline without intervention. No new injuries were identified. CYTOTECHNOLOGIST was notified as well as nursing casting supervisor. The patient remains stable at this time. No new
orders; plan of care ongoing.
[2025-06-07] VITALS (7 sets, daily range): BP systolic 97–130; BP diastolic 64–76; BMI 16.4
[2025-06-07] MEDS: PERCOCET 5/325 1 TABLET PO (03:56)
--- NOTE | 2025-06-07 04:24 | PTCARENOTE ---
Patient has become increasingly confused and experiencing hallucinations throughout shift. Patient was pointing toward the window stating, 'Can you get the door? It's Yefri and I don't have any clothes on yet.' He also asked, 'Am I staying here or
don't I have to go get dialysis?' Patient disoriented to place and situation at times. Patient not sleeping, appears restless and anxious at times. Patient has been calling and sons repeatedly throughout the night or talking aloud in the room
when no one is present. Patient's called the unit expressing concern for increased confusion. She reports patient called her earlier saying, 'Yefri is having an emergency at the doctor's,' though she confirmed their son is safe at home. Patient
has history of chronic pain 2/2 cancer. He has refused pain medication throughout much of stay but now willing to accept pain control. TELEPHONE PLANT POWER OPERATOR notified of worsening confusion, hallucinations, lack of sleep, and possible uncontrolled pain. TELEPHONE PLANT POWER OPERATOR ordered
STAT one time dose of Percocet - see MAR for administration. Patient remains in bed with all fall precautions in place. Call meneses within reach.
--- NOTE | 2025-06-07 06:53 | W.PN.UPDATE ---
Update Note
Progress Note Update
Patient had two episodes of being found leaning on the bottom of his bed (legs on floor and head and upper body on the bed) Returned to bed without injury both times. No head strike.
[2025-06-07] MEDS: WELLBUTRIN XL (24 hour extended release) 150 MG PO (07:31)
[2025-06-07] MEDS: PROSCAR 5 MG PO (07:34)
[2025-06-07] MEDS: HEPARIN 5000 UNITS SC ×2 (07:34→20:50)
[2025-06-07] MEDS: ANTIFUNGAL CLEAR 1 APPLIC TOPICAL ×2 (07:34→20:48)
[2025-06-07] MEDS: VITAMIN B1 100 MG PO (07:34)
[2025-06-07] MEDS: PROTONIX 40 MG PO ×2 (07:34→20:49)
[2025-06-07] MEDS: DESENEX/MITRAZOL/ZEASORB 1 APPLIC TOPICAL ×2 (07:35→20:49)
[2025-06-07] MEDS: THERAGRAN PO (07:36)
[2025-06-07] MEDS: SENOKOT PO ×2 (07:36→20:51)
[2025-06-07] MEDS: OASIS PO ×4 (07:36→22:39)
[2025-06-07] MEDS: VITAMIN C PO (07:36)
[2025-06-07 07:52] LABS: Glucose - Point of Care 90 mg/dl (70-99)
[2025-06-07] MEDS: LOPRESSOR PO (07:54)
[2025-06-07] MEDS: NOVOLOG FLEXPEN-LOW RESISTANCE SC ×3 (07:54→16:41)
[2025-06-07 08:34] LABS: Hematocrit 25.9 % (39.0-52.0); Hemoglobin 8.1 g/dL (13.0-18.0); Mean Corp Hgb Conc. 31.3 g/dL (33.0-37.0); Mean Corpuscular Volume 100.8 fL (80.0-94.0); Nucleated Red Blood Cells % 0 % (-); Platelet Count 195 10^3/uL (130-400); Red Cell Dist. Width 16.6 % (11.5-14.5)
[2025-06-07 08:44] LABS: Ammonia 16 umol/L (9-30)
[2025-06-07 08:47] LABS: INR 1.30; PT 16.3 Sec (11.4-14.6)
[2025-06-07 08:48] LABS: ALT (SGPT) < 10 U/L (0-50); APTT 41.3 Sec (23.4-35.0); AST (SGOT) 17 U/L (17-59); Albumin 2.7 g/dl (3.5-5.0); Alkaline Phosphatase 114 U/L (38-126); Blood Urea Nitrogen 9 mg/dl (9-20); Calcium 8.7 mg/dl (8.4-10.2); Carbon Dioxide 28 mmol/L (22-30); Chloride 104 mmol/L (98-107); Estimated Creatinine Clearance 24 ml/min; Glucose 73 mg/dl (70-99); Magnesium 1.8 mg/dl (1.6-2.3); Potassium 4.5 mmol/L (3.5-5.1); Sodium 135 mmol/L (135-145); Total Protein 5.9 g/dl (6.3-8.2); eGFR 28.95
[2025-06-07] MEDS: NSS 1000 IV (09:00)
--- NOTE | 2025-06-07 10:16 | W.PN.NEPH.PH ---
Today's Communication / Plan
-
HD tomorrow
Assessment/Plan
-
IMP:
POLA
Metastatic Renal Cell Carcinoma with Spinal Column Metastasis and subsequent Spinal Infection s/p Left L1 & B/L L2 Segmental Artery Embolization (03/30/25); T12-L2 laminectomy, Left L1/2 corpectomy, T11-L4 fusion (03/31/25); Thoracolumbar Wound
Washout with PRS closure (04/30/2025).
recent PET/CT on 02/27/2025 there is also high FDG activity/pulmonary nodule left upper lobe.
MSSA Bacteremia secondary to Spinal Infection
Status post left nephrectomy for RCC.
Acute urine retention
Obstructive uropathy with right JJ stent placed on 05/05/2025
Elevated anion gap metabolic acidosis.
Chronic normocytic anemia
Severe Protein Calorie Malnutrition
Anxiety / Depression
Hyperalbuminemia
Plan:
HD tomorrow
he remains non oliguric with lovett
hemodynamically stable
Consideration for feeding tube
add midodrine
-
-
Date of Service: June 07, 2025
CC / HPI / ROS
-
Chief Complaint:
POLA
History of Present Illness:
POLA/Cr HD started for uremia now on Sunday schedule
Hgb stable
BP lower
tolerated HD yesterday
Review of Systems:
no CP/SOB
nonoliguric with lovett
Still with vomiting
delirium episodes
Labs
-
Labs:
WBC 3.2 10^3/uL (4.8-10.8) L 06/07/25 08:21
RBC 2.57 10^6/uL (4.70-6.10) L 06/07/25 08:21
Hgb 8.1 g/dL (13.0-18.0) L 06/07/25 08:21
Hct 25.9 % (39.0-52.0) L 06/07/25 08:21
Plt Count 195 10^3/uL (130-400) 06/07/25 08:21
Sodium 135 mmol/L (135-145) 06/07/25 08:21
Potassium 4.5 mmol/L (3.5-5.1) 06/07/25 08:21
Chloride 104 mmol/L (98-107) 06/07/25 08:21
Carbon Dioxide 28 mmol/L (22-30) 06/07/25 08:21
BUN 9 mg/dl (9-20) 06/07/25 08:21
Creatinine 2.6 mg/dL (0.7-1.3) H 06/07/25 08:21
eGFR 28.95 06/07/25 08:21
Glucose 73 mg/dl (70-99) 06/07/25 08:21
Calcium 8.7 mg/dl (8.4-10.2) 06/07/25 08:21
Phosphorus 3.9 mg/dl (2.5-4.5) 06/07/25 08:21
Uir-E-Ywddqdfazqi Pept Cancelled 05/27/25 12:44
Albumin 2.7 g/dl (3.5-5.0) L 06/07/25 08:21
Physical Exam
-
Vital Signs:
Vital Signs
Temp Pulse Resp BP Pulse Ox
98.5 F 104 17 97/63 98
06/07/25 07:00 06/07/25 07:54 06/07/25 07:00 06/07/25 07:54 06/07/25 07:00
Cardiovascular:: Regular rate and rhythm
Respiratory:: Bilateral: CTA
Lung Excursion:: Normal
Abdomen:: Nontender and Soft
Bowel Sounds:: Normal
Extremity Edema:: None: Bilateral:
[2025-06-07 10:40] LABS: Cortisol, Random 15.7 ug/dl
--- NOTE | 2025-06-07 10:58 | W.PN.HOSP.TC ---
Today's Communication/Plan
-
Psych consult
1:1
working on thyroid issue
Assessment / Plan
Assessment / Plan
49yo M with PMHx of past medical history notable for metastatic RCC (s/p prior nephrectomy 12/2024) complicated by spinal mets and spinal infection (s/p prior washout ) with MSSA bacteremia, obstructive uropathy (s/p R JJ stent 04/2025),
previous uremia (s/p iHD), severe protein calorie malnutrition (s/p previous DHT) and ongoing nausea and odynophagia, CKD Initially presented on 03/27/25 to with worsening b/l LE weakness and found malignant soft tissue compressing spinal canal.
Had decompression and emolization done in [facility], then developed complication with spinal postOP wound infection with wound dehiscence and MSSA bacteremia s/p washout and woundVAc planned on [facility] till 06/10/25 and then chronic suppressive therapy.
Patient found hydronephrosis of his solitary R kidney and JJ stent placed. Developed worsening POLA finally requiring HD started on 05/18/25. Found elevated PR3, however with active infection and uncertain clinical value of this positive test - renal
biopsy and Rituxan therapy was declined by nephrology.
Patient with poor oral intake since developed feeling of dysphagia after recent surgery. Self-removed NG tube and declined PEG, planning to increase his oral intake to be able to improve calorie balance. GI called for nausea and odynophagia, so GI
did EGD on 05/25/25 without esophagitis, ulcerations or abnormalities, multiple gastric polyps seen, patchy erythema of duodenal bulb. GI advised empiric fluconazole for 14 days due to Hx of esophageal candidiasis. Plastic Sx consulted on 05/30/25
for postOP drain removal due to missed planned appt with current hospitalization. PT/OT recommended acute rehab, pending physiatry eval
ALso developed hallucinations both visual and acoustic on 06/05/25
A/P:
#Ambulatory deficiency
PT/OT recommends acute rehab
Physiatry consult pending (consult not available on weekend or holidays as per [employer])
#Dysphagia and odynophagia with severe protein calorie malnutrition
#Possible esophageal candidiasis
s/p EGD
empiric Fluconazole till 06/08/25 (2 weeks since EGD)
Patient self-removed NG tube and currently declining PEG - had prolonged conversation with patient mentioning functional status needed for continuation of the cancer treatment. He still would like to attempt to wait for resolution of odynophagia
rather then placing PEG. As per patient - pain is much improved and his oral intake is better
#Visual and acoustic hallucinations
no signs of overt delirium
challenging situation with prolonged QTc
Psych consult
1:1
check metabolic causes: UA pending
Chest XR without signs of pneumonia
Ammonia WNL
no uremia
Head CT: no signs of infarct, only Mild white matter leukoaraiosis in the parietal lobes and low-lying cerebellar tonsils.
#Subclinical hypothyroidism vs early central hyperthyroidism
TSH 15.3 with FT4 1.93 - FT3 pending, will discuss mgmt with endo
#leukopenia
stable, most likely iatrogenic
follow CBC
#POLA, possible developing ESRD
#Hypokalemia
control electrolytes with HD
initiated HD
Nephro follows
follow electrolytes
US renal on 05/08/25:Eldridge catheter is present within the bladder, with estimated bladder volume of 70 cc. No ureteral jets are demonstrated.Status post left nephrectomy.Right ureteral stent is visualized. Mild right pelvicalyceal
dilation.Echogenicity of the right kidney appears diffusely increased relative to the liver, a nonspecific finding suggesting medical renal disease.
CARIE neg
#Recurrent emesis
MRI brain on 05/14/25: without signs of brain mets. DJD with mild C4/C5 and C5/C6 disk-osteophyte complexes causing mild spinal cord compression
#Chronic anemia
multifactorial - due to POLA, CA, infection, postOP blood loss
Follow Hgb
Epo as per Nephro, but with active CA - might be not an option
#Vasovagal syncope
on 05/20/25
probably 2/2 prolonged hospitalization and deconditioning with poor oral intake
#Chronic PAIn
2/2 CA
pain mgmt
#SVT
#Prolonged QTc
Avoid QT prolonging meds
V/Q scan low prob of PE on 05/28/25
#spinal postOP infection complicated with MSSA bacteremia
Ancef till 06/10/25
Chronic cefadroxil afterwards. To follow with [facility] ID
Wound VAc removed on 05/11/25
b/l JEEVAN drains -watch for output, if <30ml x2 days - remove. Plastic Sx to follow as needed
#Metastatic RCC with mets to spine
s/p L nephrectomy
s/p Left L1 & B/L L2 Segmental Artery Embolization (03/30/25);
T12-L2 laminectomy, Left L1/2 corpectomy, T11-L4 fusion (03/31/25);
Thoracolumbar Wound Washout with PRS closure (04/30/2025)
Outpatient follow up with established oncologist in [facility]
#Stage I coccyx pressure injury present on admission.
Wound care
#Anxiety / Depression
Continue bupropion
DVT ppx hep
Full code
I have spent at [facility] 56min reviewing chart, test results and providing direct patient care
Anticipated Discharge: > 48 hours
Subjective/Interval History
-
Date of Service: June 07, 2025
Objective Data
-
Labs:
Laboratory Results
06/07/25
08:21
WBC 3.2 L
Hgb 8.1 L
Hct 25.9 L
Plt Count 195
PT 16.3 H
INR 1.30
APTT 41.3 H
Sodium 135
Potassium 4.5
Chloride 104
Carbon Dioxide 28
BUN 9
Creatinine 2.6 H
Glucose 73
Calcium 8.7
Total Bilirubin 0.4
AST 17
ALT < 10
Alkaline Phosphatase 114
Vital Signs:
Vital Signs
Temp Pulse Resp BP Pulse Ox
98.5 F 104 17 97/63 98
06/07/25 07:00 06/07/25 07:54 06/07/25 07:00 06/07/25 07:54 06/07/25 07:00
I&O
06/06/25 06/07/25 06/08/25
06:59 06:59 06:59
Intake Total 480 / 480
Output Total 950 / 950
Balance -10 10 -470 / -470
Review of Systems
-
History Source: Patient
Psych: Reports Other (hallucinations)
Physical Exam
-
General: No Apparent Distress
HEENT: Normocephalic
Respiratory: Clear to Auscultation
Cardiac: Regular Rhythm
GI: Soft
Skin: Warm
Neuro: Awake, Alert, Oriented, AO x 3 and Tremors
Psych: Calm
[2025-06-07 11:45] LABS: Glucose - Point of Care 77 mg/dl (70-99)
[2025-06-07 11:53] LABS: Free T3 2.68 pg/ml (2.77-5.27)
--- NOTE | 2025-06-07 12:11 | W.PN.UPDATE ---
Addendum entered and electronically signed by Wale Elias MD 06/07/25 13:35:
With further review: Might be suboptimal coverage, switch back to previously ordered Ancef 1g QPM to complete 4 more doses and will await Ucx since patient is afebrile
Original Note:
Update Note
Progress Note Update
since FT3 mildly decreased - agreed with Endo to start Synthroid 50mcg
[2025-06-07 12:36] LABS: Urine Character Clear (Clear)
[2025-06-07 12:54] LABS: Urine Urothelial Cell 0-2 /LPF (FEW)
[2025-06-07 12:56] LABS: Urine Red Blood Cell 30-40 /HPF (0-2)
[2025-06-07 12:57] LABS: Urine White Cell 40-50 /HPF (0-5)
--- NOTE | 2025-06-07 13:17 | W.PN.UPDATE ---
Update Note
Progress Note Update
Pyuria, might need gram neg coverage. Will switch to Rocephin 2g q24h that will cover both MSSA and possible gram neg, pending Ucx
[2025-06-07] MEDS: SYNTHROID 50 MCG PO (14:25)
[2025-06-07 14:51] LABS: Folate 5.5 ng/ml (2.76-20); Vitamin B12 590 pg/ml (239-931)
--- NOTE | 2025-06-07 15:11 | CS.PSYCHR ---
Consult Summary - Psychiatry
-
Pt is a 49 y/o male with metastatic renal cell carcinoma who transferred from [facility] to 05/06/25, following a prolonged hospitalization, with neurosurgical intervention for severe spinal stenosis from malignant soft tissue. Pt had multiple
infectious and other complications, became severely deconditioned. Pt noted with ambulatory deficiency, dysphagia with protein calorie malnutrition, thyroid abnormality- unclear etiology with elevated TSH- started on Synthroid today, POLA, prolonged
QTc. Pt has hx of anxiety/depression, is on Wellbutrin XL 150 mg AM. Psychiatry asked to see pt for hallucinations x 3 days. Pt seen resting in bed watching TV. He reports visual hallucinations/altered perceptions when he first wakes- last 1 to
2 minutes, or when he is falling asleep. He will see familiar people, similar to a dream. Pt has mild distress from this. He denies ever having this symptom before. Pt reports high stress level, states his was recently hospitalized with
dehydration; his father is admitted to 'downstairs', with colon cancer per pt. Pt states he is the sole provider in his household and has not worked since March. Discussed options to try to manage pt's perceptual disturbance, pt states a
preference not to take an antipsychotic medication. Nursing notes indicate lack of sleep.
Psych Hx: unspecified depression, has been on Wellbutrin XL 150 mg daily for approx 2 years
SH: see above
MSE: alert, oriented, calm, cooperative, no acute distress. Speech coherent, thought goal-directed. No overt signs of psychosis. Mood stable, affect appropriate. Insight fair
Imp: Hypnopompic hallucinations, likely due to situational stress, disruption in sleep cycle, prolonged hospitalization. Do not see an indication for antipsychotic medication
Rec: Will try low-dose prn Ativan for anxiety/insomnia. Could also try melatonin 3 to 5 mg HS. Will follow.
[2025-06-07 16:38] LABS: Glucose - Point of Care 90 mg/dl (70-99)
[2025-06-07] MEDS: ANCEF 5 IV (17:43)
[2025-06-07] MEDS: LOPRESSOR 12.5 MG PO (20:49)
[2025-06-07 22:36] LABS: Glucose - Point of Care 63 mg/dl (70-99)
[2025-06-07] MEDS: FLOMAX PO (22:39)
[2025-06-07 22:45] LABS: Glucose - Point of Care 69 mg/dl (70-99)
[2025-06-07 23:06] LABS: Glucose - Point of Care 84 mg/dl (70-99)
[2025-06-08] MEDS: ATIVAN 0.5 MG PO (00:45)
[2025-06-08 01:04] LABS: Glucose - Point of Care 65 mg/dl (70-99)
[2025-06-08 01:25] LABS: Glucose - Point of Care 72 mg/dl (70-99)
[2025-06-08 03:00] VITALS: BP 108/69
[2025-06-08 03:29] LABS: Glucose - Point of Care 84 mg/dl (70-99)
--- NOTE | 2025-06-08 04:00 | PTCARENOTE ---
when walking by this patients room this RN saw that the patient was attempting to slide out of bed. this RN entered the room to assist the patient to get fully back into bed. this RN called out to staff for help to be able to get the patient fully
back in bed. staff were able to get the patient fully back into bed. patient stated ' 1 was going to go leaf size picker my door dash order'. patient reoriented to situation and educated that he cannot go leaf size picker order and that staff would go and leaf size picker his
order. bed alarm did not sound for patient due to it being turned to delayed. delayed switch turned off. bed alarm remains inplace. poc ongoing.
[2025-06-08] MEDS: SYNTHROID 50 MCG PO (05:02)
[2025-06-08 05:34] LABS: Glucose - Point of Care 92 mg/dl (70-99)
[2025-06-08 06:00] VITALS: BMI 16.8
[2025-06-08 07:00] VITALS: BP 144/75
--- NOTE | 2025-06-08 07:28 | PTCARENOTE ---
Pt found this morning with legs off of bed and pt attempting to pull out lovett catheter. When RN went into room to ask what pt was doing, pt responded 'I'm going out to dinner with my family'. RN attempted to reorient pt that it is currently 0715 in
the morning and that they are in the hospital, pt stated 'well then I'm going out for breakfast with them'. RN stated that family is not coming this early and asked pt if they would like us to order them breakfast. Pt stated 'you can do whatever you
want, but I'm not eating'. Pt has not eaten anything yesterday because pt kept stating that 'my is coming to bring me food', but did not come and pt refused to eat food provided from kitchen.
[2025-06-08 07:53] LABS: Glucose - Point of Care 126 mg/dl (70-99)
[2025-06-08] MEDS: NOVOLOG FLEXPEN-LOW RESISTANCE SC ×3 (08:03→16:48)
[2025-06-08 08:56] LABS: Hematocrit 24.8 % (39.0-52.0); Hemoglobin 7.7 g/dL (13.0-18.0); Mean Corp Hgb Conc. 31.0 g/dL (33.0-37.0); Mean Corpuscular Volume 100.4 fL (80.0-94.0); Nucleated Red Blood Cells % 0 % (-); Platelet Count 226 10^3/uL (130-400); Red Cell Dist. Width 15.9 % (11.5-14.5)
[2025-06-08 09:08] LABS: Blood Urea Nitrogen 12 mg/dl (9-20); Calcium 8.7 mg/dl (8.4-10.2); Carbon Dioxide 27 mmol/L (22-30); Chloride 104 mmol/L (98-107); Estimated Creatinine Clearance 19 ml/min; Glucose 63 mg/dl (70-99); Potassium 4.4 mmol/L (3.5-5.1); Sodium 135 mmol/L (135-145); eGFR 20.98
[2025-06-08] MEDS: RETACRIT 10000 UNITS IV (09:59)
--- NOTE | 2025-06-08 10:52 | W.PN.NEPH.HD ---
Assessment
-
pt seen during HD
SBP are soft and pt not eating
remains confused, soft wrist restraints while on HD
will give 500cc IVF , non oliguric antonia lyey
abx per primary
CVC functions fine
Progress Note - Hemodialysis
-
Date of Service: June 08, 2025
Duration: 3 hours
Potassium Bath: 3
Calcium Bath: 2.5
Opti-Dialyzer: 160
Ultrafiltration: Other (0)
Blood Flow: 400
Dialysate Flow: 600
Heparin: no
EPO: 16485
[2025-06-08 11:00] VITALS: BP 136/53
[2025-06-08] MEDS: THERAGRAN 1 TABLET PO (11:46)
[2025-06-08 11:48] LABS: Glucose - Point of Care 74 mg/dl (70-99)
[2025-06-08] MEDS: SENOKOT PO ×2 (11:51→19:50)
[2025-06-08] MEDS: OASIS PO ×4 (11:51→21:56)
[2025-06-08] MEDS: ANTIFUNGAL CLEAR 1 APPLIC TOPICAL ×2 (11:51→19:46)
[2025-06-08] MEDS: DESENEX/MITRAZOL/ZEASORB 1 APPLIC TOPICAL ×2 (11:52→19:46)
[2025-06-08] MEDS: LOPRESSOR PO (11:58)
[2025-06-08] MEDS: WELLBUTRIN XL (24 hour extended release) PO (11:59)
[2025-06-08] MEDS: PROTONIX PO (11:59)
[2025-06-08] MEDS: PROSCAR PO (11:59)
[2025-06-08] MEDS: HEPARIN SC (12:00)
[2025-06-08] MEDS: VITAMIN C PO (12:01)
[2025-06-08] MEDS: VITAMIN B1 PO (12:01)
--- NOTE | 2025-06-08 12:46 | PTCARENOTE ---
During dialysis treatment this morning, it was reported by spear fisher that pt was kept trying to pull at tubes and dialysis catheter. Pt redirected multiple times without success. Order placed for soft, non-violent restraints due to pt attempting
to pull out lovett catheter and trying to get OOB this morning, trying to pull out dialysis catheter, and increased confusion/AH and VH which causes pt to try to get OOB resulting in falls. When dialysis tx was finished, this RN attempted to give
morning medications to pt. Pt took 1 medication and spit the other out and refused to take them. Pt started to become agitated and verbally aggressive. When RN attempted to educate pt on medications, pt replied 'I DON'T GIVE A FUCK. I'M NOT TAKING
THEM'. Pt did not require any other assistance at this time.
--- NOTE | 2025-06-08 12:58 | CON.ID ---
Consultation
-
Date/Time Consultation Requested: 06/08/25
Date/Time Consultation Performed: 06/08/25
Requesting Provider: Dr. Chas Michel
Performing Provider: Dr. Radha Whitaker
Reason for Consultation: MSSA Bacteremia
Chief Complaint / Past History
History of Present Illness
49 year old male currently being worked up for Metastatic RCC with mets to spine, ambulatory deficiency, odynophagia, POLA with possible end stage renal disease, recurrent emesis, anemia, chronic pain, SVT, anxiety and depression. initially
presented on 03/27/25 to [facility] with worsening b/l LE weakness and found malignant soft tissue compressing spinal canal on abdominal pelvis CT scan. Had decompression and embolization done in [facility], then developed postoperative wound
infection with wound dehiscence and MSSA bacteremia, Placed on woundvac ( which was discontinued on 05/11/2025) and Ancef till 06/10/25 which is being continued here in this hospital.
Patient is not eating and drinking normally.
Patient has a Eldridge catheter which is draining clear yellow liquid.
No fever, chills, headache, diarrhea, nausea, vomiting, abdominal pain, altered bowel movements.
Patient would like to continue his treatments with oncologist at [facility].
Past History
Additional Past Medical History:
metastatic RCC (s/p prior nephrectomy 12/2024) complicated by spinal mets and spinal infection (s/p prior washout ) with MSSA bacteremia, obstructive uropathy (s/p R JJ stent 04/2025), previous uremia (s/p iHD), severe protein calorie
malnutrition (s/p previous DHT) ,ongoing nausea and odynophagia, CKD, anxiety/ depression
Additional Past Surgical History:
Left Nephrectomy
Left L1 & B/L L2 Segmental Artery Embolization (03/30/25)
T12-L2 laminectomy, L L1/2 corpectomy, T11-L4 fusion (03/31/25)
Thoracolumbar Wound Washout with PRS closure (04/30/2025)
Cystoscopy with JJ Stent placement (05/05/2025)
Allergy History:
No Known Allergies Allergy (Verified 03/27/25 06:56)
Medications Reviewed: Yes
Current Antibiotics:
Ancef
Social History
Tobacco: Former Smoker
Alcohol: None
Drug: None
Personal:
Family History
Family History: Not Pertinent
Review of Systems
Review of Systems
General: Other; Negative Fever or Chills
Cardiovascular: Negative Chest Pain
Respiratory: Negative Dyspnea
Gasteroenterology: Negative Weight Loss
Endocrine: Weight Change
Musculoskeletal: Negative Joint Pain
Neurological: Other (tremors); Negative Headache or Dizziness
Psychological: Depression
Vital Signs
Temp Pulse Resp BP Pulse Ox
97.9 F 104 18 136/53 98
06/08/25 11:00 06/08/25 11:00 06/08/25 11:00 06/08/25 11:00 06/08/25 11:00
Physical Exam
Physical Exam
Constitutional: Chronically Ill and Cachetic
Cardiovascular: Regular Rate
Pulmonary: Clear and Symmetric
Gastrointestinal: Soft, Non Tender, Non Distended and Normal Bowel Sounds
Genito-Urinary: Eldridge and Clear Urine
Extremities: Negative Edema
Skin: Warm
Neurological: AO x 3, Tremors (generalized ) and Other
Psychological: Calm
Lab / Diagnostic Study Results
06/08/25 08:35
06/08/25 08:35
Abs Immat Gran (auto) 0.0 10^3/uL (0-0.05) 06/08/25 08:35
Absolute Neuts (auto) 2.9 10^3/uL (1.4-6.5) 06/08/25 08:35
Absolute Lymphs (auto) 0.6 10^3/uL (1.2-3.4) L 06/08/25 08:35
Absolute Monos (auto) 0.8 10^3/uL (0.1-0.6) H 06/08/25 08:35
Absolute Basos (auto) 0.0 10^3/uL (0-0.2) 06/08/25 08:35
Immature Gran % 0.5 % (0-0.5) 06/08/25 08:35
Neutrophils % 65.3 % (42.2-75.2) 06/08/25 08:35
Lymphocytes % 12.6 % (20.5-51.1) L 06/08/25 08:35
Monocytes % 18.8 % (1.7-9.3) H 06/08/25 08:35
Eosinophils % 2.3 % (0-6) 06/08/25 08:35
Basophils % 0.5 % (0-2) 06/08/25 08:35
PT 16.3 Sec (11.4-14.6) H 06/07/25 08:21
INR 1.30 06/07/25 08:21
Urine WBC 3-5 /HPF (0-5) 05/17/25 15:03
Ur Squamous Epith Cells 6-10 /LPF (Few) 06/07/25 12:16
Microbiology Results
Micro:
06/07/25 12:16 Urine Culture - Final
Urine NO GROWTH
06/07/25 08:52 Blood Culture - Preliminary
Blood/Venous No Growth in 24 hours- Final report to follow
06/07/25 08:21 Blood Culture - Preliminary
Blood/Venous No Growth in 24 hours- Final report to follow
05/07/25 00:31 MRSA Screen - Final
Nose No Methicillin Resistant Staphylococcus aureus isolated.
renal u/s on 05/08/25:
- IMPRESSION: Eldridge catheter is present within the bladder, with estimated bladder volume of 70 cc. No ureteral jets are demonstrated.
Status post left nephrectomy.
Right ureteral stent is visualized. Mild right pelvicalyceal dilation.
Echogenicity of the right kidney appears diffusely increased relative to the liver, a nonspecific finding suggesting medical renal disease.
Brain MRI on 05/14/25:
IMPRESSION:
1. No MRI evidence for intracranial metastatic disease.
2. 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
3. Low-lying cerebellar tonsils.
4. Moderate discogenic degenerative disease at C4/C5 and C5/C6 with small disc-osteophyte complexes causing mild spinal cord compression.
Head CT on 06/07/25:
- IMPRESSION:
1. No CT evidence for acute intracranial hemorrhage or transcortical infarct.
2. 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
3. Low-lying cerebellar tonsils.
Chest Xray on 06/07/25:
- IMPRESSION:
1. No radiographic evidence for pneumonia, acute pulmonary edema, or pleural effusion.
2. Mild elevation of the right hemidiaphragm.
3. Right IJ hemodialysis catheter in place.
4. Previous posterior lower thoracolumbar instrumentation.
Assessment / Plan
MSSA bacteremia secondary to spinal canal embolization/ decompression d/t metastatic renal carcinoma
Post op wound dehiscence:
- Diagnosed At [facility] via wound culture following spinal canal embolization/ decompression. Was placed on Ancef with 06/09/2025 being last day.
- Patient is afebrile, WBC count is slightly decreased at 4.4, and absolute neutrophil count within range.
- Continue on IV Ancef through 06/09/25 and then indefinite oral antibiotic suppression with Keflex.
- Trend CBC, CMP, temperature curve daily.
- continue wound care
- Patient is a candidate for hospice with terminal illness, but states he would like to continue treatments with oncologist at [facility].
- continue to follow daily.
--- NOTE | 2025-06-08 13:27 | W.PN.UPDATE ---
Update Note
Progress Note Update
I personally performed a history and physical exam of the patient and discussed management with the resident. I reviewed the resident's note and agree with the documented findings and plan of care HPI/CC.
I reviewed outside [facility] records.
49-year-old male with history of metastatic renal carcinoma s/p nephrectomy (12/2024) presented to [facility] 03/27 with mets to spine with LE weakness, transfered to [facility] s/p left L1, bilateral L2 segmental artery [id number]/25, OR T12-T1
laminectomy, left L1/2 transpedicular approach for L1/2 corpectomy, T11-L4 fusion 03/31. OR cx +MSSA. 04/01 - 04/01 blood cx's MSSA. Also noted to have MSSA empyema requiring chest tube placement 04/08, subsequently removed 04/16. + HSVI lesions on
nares treated with Valacyclovir. 04/26 ID reconsulted for lumbar wound dehiscence. Blood cx's neg. Seen by Plastics 04/30, s/p thoracolumbar wound washout with PRS closure. OR gram stains + (possibly contaminants), but cx neg. Developed POLA,
then ultimately placed on HD. Patient has been on cefazolin since 03/31, rifampin dc'd due to POLA. Plan is to treat x 6weeks from 04/30 (total 9 week's cefazolin), followed by oral suppression. Patient transfered back to [facility] 05/06. Pt with
dysphagia, poor po intake s/p EGD without significant abnormalities. Hospital course complicated by protracted encephalopathy. Pt cachectic in soft restraints, + hallucination. Back pain stable and controlled.
Outside Micro data
04/30 bone spine cx no growth
04/30 epidural space #2 cx GS GPC, GNR; no growth
04/30 epidural space cx GS GNR; no growth
04/30 thoracic deep space cx GS GNR; no growth
04/28 UA small LE, 50-100 WBC
04/26 bcx NGTD
04/26 UA mod LE; 20-50 WBC
04/26 ucx few yeast
�
04/18 RPP positive rhinovirus
04/18 bcx NGTD
04/18 UA neg
04/17 bcx NGTD
04/14 ucx neg
04/10 nasal VZV PCR neg
04/10 nasal HSV PCR + HSV 1
04/08 Pleural fluid - 2,276 TNC, 6,044 RBC
Cultures with NGTD, few GPCs on gram stain
�
04/07 Bcx x2 NGTD
04/06 Bcx NGTD
04/05 Bcx x2 NG
04/04 Bcx - MSSA in 2/4 vials
04/03 HIV screen NR
04/03 Bcx x2 - MSSA in 2/4 vials
04/02 BC x2 - MSSA in 2/4 vials
04/01 Bcx x2 - MSSA in 2/4 vials
04/01 Resp Cx - saliva
04/01 ucx MSSA
�
03/31 Epidural swab - MSSA
Outside antibiotic course:
Cefazolin 03/31-04/30, 05/01-
Cefepime 04/30 x 1
Vanc 04/30 x 1
Cefepime 04/01 x 1
Ertapenem 04/07-04/09
Rifampin 04/01-04/05, 04/09-04/17
Vanc 04/01-04/02, 04/09 x 1
Valacyclovir 04/12-04/18
A/P
# Metastatic RCC with mets(biopsy positive) to spine with cord compression s/p embolization 03/30
# MSSA Lumbar spine abscess/discitis s/p T12-L2 lami and L L1/2 transpedicular approach for L1/2 corpectomy, T11-L4 fusion with instrumentation 03/31.
Purulent noted in OR, epidural swab + MSSA; sustained MSSA bacteremia 04/01 - 04/04
# Lumbar wound dehiscence s/p washout, cx's negative.
# Recent ESRD on HD
# Encephalopathy
# Dysphagia and poor appetite
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
- To complete cefazolin through 06/09/25 (close to 9 week total course, 6 weeks from lumbar wound dehiscence surgery).
- 06/20/25 start lifelong suppressive therapy with cephalexin 500mg qPM for spine hardware instrumentation in an infected field.
- GOC discussion.
[2025-06-08 15:00] VITALS: BP 114/71
--- NOTE | 2025-06-08 15:15 | W.PN.HOSP.TC ---
Today's Communication/Plan
-
Protracted encephalopathy. Suspect multifactorial metabolic toxic encephalopathy
Initially mental status, appetite, nausea and emesis improved with initiation of hemodialysis (possibly related to uremia)
Currently with agitation and visual hallucinations.
Brain imaging including MRI with no evidence of intracranial disease
Additional ID workup with no evidence of new infection.
Psychiatry input appreciated with concern for keeping up pulm PICC hallucinations possibly related to situational stress, disruption of sleep cycle and prolonged hospitalization.
Will try and titrate benzodiazepines.
Increase lorazepam to 1 mg every 8 hours as needed for agitation with standing dose at 2 mg at bedtime. Monitor closely.
Consider low-dose of Seroquel at night, although with close QTc monitoring
Assessment / Plan
Assessment / Plan
Impression/plan
49yo M with PMHx of past medical history notable for metastatic RCC (s/p prior nephrectomy 12/2024) complicated by spinal mets and spinal infection (s/p prior washout ) with MSSA bacteremia, obstructive uropathy (s/p R JJ stent 04/2025),
previous uremia (s/p iHD), severe protein calorie malnutrition (s/p previous DHT) and ongoing nausea and odynophagia, CKD Initially presented on 03/27/25 to with worsening b/l LE weakness and found malignant soft tissue compressing spinal canal.
Had decompression and emolization done in [facility], then developed complication with spinal postOP wound infection with wound dehiscence and MSSA bacteremia s/p washout and woundVAc planned on [facility] till 06/10/25 and then chronic suppressive therapy.
Patient found hydronephrosis of his solitary R kidney and JJ stent placed. Developed worsening POLA finally requiring HD started on 05/18/25. Found elevated PR3, however with active infection and uncertain clinical value of this positive test - renal
biopsy and Rituxan therapy was declined by nephrology.
Patient with poor oral intake since developed feeling of dysphagia after recent surgery. Self-removed NG tube and declined PEG, planning to increase his oral intake to be able to improve calorie balance. GI called for nausea and odynophagia, so GI
did EGD on 05/25/25 without esophagitis, ulcerations or abnormalities, multiple gastric polyps seen, patchy erythema of duodenal bulb. GI advised empiric fluconazole for 14 days due to Hx of esophageal candidiasis. Plastic Sx consulted on 05/30/25
for postOP drain removal due to missed planned appt with current hospitalization. PT/OT recommended acute rehab, pending physiatry eval
ALso developed hallucinations both visual and acoustic on 06/05/25
MSSA Bacteremia secondary to Spinal Infection
- Continue cefazolin 2gm q12h through Jun 10
- Will likely need chronic cefadroxil afterwards
- Follow-up schedule with ID at [place]
-Wound VAC present on transfer to [facility] on 05/11
- Initially with bilateral paraspinal JEEVAN drain. One of the JEEVAN drain has been removed by plastic surgery. Continue wound care. Outpatient follow-up with surgery at [facility].
Metastatic Renal Cell Carcinoma
met to Spinal Column Metastasis
s/p Left L1 & B/L L2 Segmental Artery Embolization (03/30/25); T12-L2 laminectomy, Left L1/2 corpectomy, T11-L4 fusion (03/31/25); Thoracolumbar Wound Washout with PRS closure (04/30/2025).
In review of recent PET/CT on 02/27/2025 there is also high FDG activity/pulmonary nodule left upper lobe.
oncology signed off, rec 'OP follow up with [facility] oncologist recommended after discharge to discuss systemic therapy options base on resolution of infection, renal function, nutritional status, and performance status.'
MRI of the brain, ordered with persistent nausea and emesis and concern for central symptoms, negative for intracranial disease.
Acute kidney injury
Elevated anion gap metabolic acidosis.
Status post left nephrectomy for RCC.
Obstructive uropathy with right JJ stent placed on 05/05/2025
Eldridge catheter in place.
Continue Flomax and Proscar
Appreciate nephrology input, dialysis started 05/18/25
Continue dialysis as per nephrology
Hypotensive initiated on midodrine 2.5 mg 3 times daily.
Chronic normocytic anemia
Iron studies indicative of mild iron deficiency and anemia of chronic disease. Per heme/onc, no role for supplementation
Erythropoietin level of 4, low end of normal range.
Follow hemoglobin, transfuse if Hgb<7
Concern for esophageal candidiasis
With persistent odynophagia will start empiric treatment with Diflucan.
Continue acid suppression increasing Protonix to 40 mg IV twice daily.
EGD 05/25 with no abnormalities.
Completed empiric course of nystatin and Diflucan for 14 days.
SVT�sinus tachycardia.
Had 1 vasovagal episode/presyncope on 05/20.
Initiated on low-dose of beta-blockers
Additional workup including:
ECG sinus tach
Monitor on telemetry
Pro CHF BNP mildly elevated at 790
Echocardiogram with preserved biventricular function and no evidence for RV strain
Lower extremity Dopplers negative
Hemoglobin has been stable
VQ scan low probability
Prolonged QTc
Stop Remeron and Zofran
Improved
Avoid QT prolonging medications
Protracted encephalopathy. Suspect multifactorial metabolic toxic encephalopathy
Initially mental status, appetite, nausea and emesis improved with initiation of hemodialysis (possibly related to uremia)
Currently with agitation and visual hallucinations.
Brain imaging including MRI with no evidence of intracranial disease
Additional ID workup with no evidence of new infection.
Psychiatry input appreciated with concern for keeping up pulm PICC hallucinations possibly related to situational stress, disruption of sleep cycle and prolonged hospitalization.
Will try and titrate benzodiazepines.
Increase lorazepam to 1 mg every 8 hours as needed for agitation with standing dose at 2 mg at bedtime. Monitor closely.
Consider low-dose of Seroquel at night, although with close QTc monitoring
Subclinical hypothyroidism.
TSH about 15.
T4/T3 marginal.
Initiated on levothyroxine 50 mcg daily on 06/07
Pain Management
-Patient previously on Morphine ER which was switched to Morphine IR when DHT was placed
-Patient had been refusing scheduled doses of narcotics
-Continue oxycodone PRN
Anxiety / Depression
-Continue bupropion
Deconditioning
-PM&R rec acute rehab once eating well or other nutrition plan in place
DVT proph: SC Heparin
Code Status: Full Code
Dispo - acute inpatient rehab
Anticipated Discharge: > 48 hours
Subjective/Interval History
-
Date of Service: June 08, 2025
Objective Data
-
Labs:
Laboratory Results
06/08/25
08:35
WBC 4.4 L
Hgb 7.7 L
Hct 24.8 L
Plt Count 226
Sodium 135
Potassium 4.4
Chloride 104
Carbon Dioxide 27
BUN 12
Creatinine 3.4 H
Glucose 63 L
Calcium 8.7
Vital Signs:
Vital Signs
Temp Pulse Resp BP Pulse Ox
97.9 F 115 18 112/81 98
06/08/25 11:00 06/08/25 14:49 06/08/25 11:00 06/08/25 14:49 06/08/25 11:00
I&O
06/07/25 06/08/25 06/09/25
06:59 06:59 06:59
Intake Total 480 / 480 1080 / 1080
Output Total 950 / 950 1100 / 1100
Balance -470 / -470 -20 / -20
Physical Exam
-
General: No Apparent Distress
HEENT: Normocephalic
Respiratory: Clear to Auscultation
Cardiac: Regular Rhythm
GI: Soft
Skin: Warm
Neuro: Awake, Alert, Oriented, AO x 3 and Tremors
Psych: Calm
[2025-06-08 16:45] LABS: Glucose - Point of Care 78 mg/dl (70-99)
--- NOTE | 2025-06-08 17:09 | CM ---
CM continues to follow for discharge planning. Pt has been in soft wrist restraints and 4 side rails, as he has been confused, attempting to get out of bed and pulling at his tube, refusing to eat. Psychiatry consulted.
[2025-06-08] MEDS: ANCEF 5 IV (18:04)
[2025-06-08 19:00] VITALS: BP 118/73
[2025-06-08] MEDS: LOPRESSOR 12.5 MG PO (19:42)
[2025-06-08] MEDS: HEPARIN 5000 UNITS SC (19:44)
[2025-06-08] MEDS: PROTONIX 40 MG PO (19:44)
[2025-06-08] MEDS: ATIVAN 2 MG PO (21:52)
[2025-06-08] MEDS: FLOMAX 0.4 MG PO (21:52)
[2025-06-08 21:55] LABS: Glucose - Point of Care 88 mg/dl (70-99)
[2025-06-08 23:04] LABS: Glucose - Point of Care 57 mg/dl (70-99)
[2025-06-08] MEDS: DEXTROSE 50% SYRINGE 25 GRAMS IV (23:05)
[2025-06-08 23:27] LABS: Glucose - Point of Care 147 mg/dl (70-99)
[2025-06-08] MEDS: OFIRMEV 100 IV (23:40)
[2025-06-09] VITALS (8 sets, daily range): BP systolic 93–140; BP diastolic 60–79; PULSE 84–85; O2SAT 98; BMI 16.7
--- NOTE | 2025-06-09 00:22 | W.PN.UPDATE ---
Update Note
Progress Note Update
~ 23:00 Called to see patient for increased lethargy and diaphoretic. Patient restless, not responding appropriately to questions, and son at bedside.
Vital signs: Temp 97.9 rectal, Resp 20, pulsox 100% on room air.
Blood glucose 57. Ordered Dextrose 50% 1 amp x 1 now, repeat 15 minute glucose 147, repeat accucheck @ 1:30 am 85. Continue w/accuchecks and folllow protocol for hypoglycemic episodes. Will defer IV fluids to primary provider since patient is
receiving hemodialysis.
Ordered AM labs: CBC and BMP
[2025-06-09 01:30] LABS: Glucose - Point of Care 85 mg/dl (70-99)
--- NOTE | 2025-06-09 02:33 | PTCARENOTE ---
this RN was told patients family member wanted to speak with her. this RN entered the room and when asked by the family member if he patient had been like this before, this RN noticed the patient had increased confusion and tremors, was diaphoretic
and was not responsive as normal. this RN went to get help from other staff to assess the patient. LD Thomas was present on the unit and came to assess the patent. LD asked to have patients blood glucose checked. result of glucose was
57. Dextrose given. See MAR for administration. blood glucose rechecked 15 minutes later per protocol. blood glucose result 147. patient with elevated temp of 100.6. PEN OR PENCIL ASSEMBLY MACHINE OPERATOR notified. new orders received. See MAR for administration. POC ongoing.
[2025-06-09 03:03] LABS: Glucose - Point of Care 78 mg/dl (70-99)
[2025-06-09 06:04] LABS: Glucose - Point of Care 82 mg/dl (70-99)
[2025-06-09] MEDS: SYNTHROID PO (06:09)
[2025-06-09] MEDS: NOVOLOG FLEXPEN-LOW RESISTANCE SC ×3 (07:00→18:42)
[2025-06-09 07:40] LABS: Hematocrit 25.0 % (39.0-52.0); Hemoglobin 7.7 g/dL (13.0-18.0); Mean Corp Hgb Conc. 30.8 g/dL (33.0-37.0); Mean Corpuscular Volume 100.0 fL (80.0-94.0); Platelet Count 185 10^3/uL (130-400); Red Cell Dist. Width 15.7 % (11.5-14.5)
[2025-06-09 08:07] LABS: Blood Urea Nitrogen 5 mg/dl (9-20); Calcium 8.7 mg/dl (8.4-10.2); Carbon Dioxide 27 mmol/L (22-30); Chloride 104 mmol/L (98-107); Estimated Creatinine Clearance 28 ml/min; Glucose 65 mg/dl (70-99); Potassium 3.6 mmol/L (3.5-5.1); Sodium 135 mmol/L (135-145); eGFR 33.54
--- NOTE | 2025-06-09 09:09 | CON.NEURO ---
Addendum entered and electronically signed by Jonathon Vázquez MD 06/09/25 10:56:
Studies reviewed.
I have personally examined the patient. I reviewed and agree with the [employer]'s Note.
My addenda:
Awake, alert, interactive. No acute distress.
Speech intact, with mildly reduced output.
Follows 2-step requests w/o difficulty. No tremor.
Extra-ocular movements grossly intact.
Facial movements full and symmetric. Hearing intact to normal conversational volume.
Normal UE movements bilaterally.
Neck: full ROM.
Chest: no dyspnea
Heart: no JVD
Ext: (-) Clubbing, (-) Cyanosis, (-) Edema
IMPRESSIONS/RECOMMENDATIONS:
Abrupt onset of worsening encephalopathy in a patient with fever and hypoglycemia as well as known metastatic renal cell carcinoma. MRI of the brain approximately 1 month ago was unrevealing for metastatic disease.
Most likely patient is experiencing toxic metabolic encephalopathy with current improvement of symptoms.
Would perform repeated MRI of brain if patient develops recurrent symptoms without fever or hypoglycemia
Would consider lumbar puncture if patient again worsens with regards to encephalopathy
Provide thiamine
Patient's current tremor is potentially due to paraneoplastic etiology. If troubling, can provide medication revision
Speech/cognitive therapy evaluation
D/W patient
All questions answered.
Will continue to follow patient.
Original Note:
Neuro Assessment/Plan
Assessment
Patient is a 49 year old male with prolonged hospital stay, initially presented on 03/27/25 to with worsening b/l LE weakness and found malignant soft tissue compressing spinal canal, now neurology consulted for acute change in mental status.
Brain MRI 05/14/25:
1. No MRI evidence for intracranial metastatic disease.
2. 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
3. Low-lying cerebellar tonsils.
4. Moderate discogenic degenerative disease at C4/C5 and C5/C6 with small disc-osteophyte complexes causing mild spinal cord compression.
Plan
Differential: metabolic encephalopathy given patient was hypoglycemic and febrile vs delirium vs metastatic disease to brain although less likely given brain MRI from 1 month ago was negative for metastasis vs hemorrhagic or ischemic stroke given
renal cell carcinoma
-obtain brain MRI with and without contrast
-pending results of brain MRI, may consider lumbar puncture
-appreciate ID recommendations
-supportive care
All questions encouraged and answered, plan of care discussed with patient and Dr. Vázquez
Consultation
Order
Date of Consultation: 06/09/25
Requesting Provider: hospitalist/ Dr. Chas Michel
Reason for Consult: confusion
Subjective/Objective
Subjective Data
Date of Service: June 09, 2025
Patient with prolonged hospital stay, information taken from chart, '49yo M with PMHx of past medical history notable for metastatic RCC (s/p prior nephrectomy 12/2024) complicated by spinal mets and spinal infection (s/p prior washout )
with MSSA bacteremia, obstructive uropathy (s/p R JJ stent 04/2025), previous uremia (s/p iHD), severe protein calorie malnutrition (s/p previous DHT) and ongoing nausea and odynophagia, CKD Initially presented on 03/27/25 to with worsening b/l
LE weakness and found malignant soft tissue compressing spinal canal. Had decompression and emolization done in [facility], then developed complication with spinal postOP wound infection with wound dehiscence and MSSA bacteremia s/p washout and woundVAc
planned on Ancef till 06/10/25 and then chronic suppressive therapy. Patient found hydronephrosis of his solitary R kidney and JJ stent placed. Developed worsening POLA finally requiring HD started on 05/18/25. Found elevated PR3, however with active
infection and uncertain clinical value of this positive test - renal biopsy and Rituxan therapy was declined by nephrology.
Patient with poor oral intake since developed feeling of dysphagia after recent surgery. Self-removed NG tube and declined PEG, planning to increase his oral intake to be able to improve calorie balance. GI called for nausea and odynophagia, so GI
did EGD on 05/25/25 without esophagitis, ulcerations or abnormalities, multiple gastric polyps seen, patchy erythema of duodenal bulb. GI advised empiric fluconazole for 14 days due to Hx of esophageal candidiasis. Plastic Sx consulted on 05/30/25
for postOP drain removal due to missed planned appt with current hospitalization.'
Patient states he started having visual and acoustic hallucinations and sense of dreaming which started 4 days ago on 06/05/25 which would make him anxious. He states his thinking is back to normal now. Denies headache/dizziness. Patient knows he is
at the hospital, knows he had to have back surgery. Patient tremulous which started after kidney removal in December and has progressed. He had a brain MRI here on 05/14/25 ordered for persistent nausea and emesis and concern for central symptoms,
negative for intracranial disease. Vital signs currently stable and patient afebrile.
Objective Data
Vital Signs
Temp Pulse Resp BP Pulse Ox
97.1 F 93 16 103/68 99
06/09/25 08:17 06/09/25 08:17 06/09/25 08:17 06/09/25 08:17 06/09/25 08:17
Lab Results
06/09/25 07:18
06/09/25 07:18
PT 16.3 Sec (11.4-14.6) H 06/07/25 08:21
INR 1.30 06/07/25 08:21
APTT 41.3 Sec (23.4-35.0) H 06/07/25 08:21
Sodium 135 mmol/L (135-145) 06/09/25 07:18
Potassium 3.6 mmol/L (3.5-5.1) 06/09/25 07:18
BUN 5 mg/dl (9-20) L 06/09/25 07:18
Glucose 65 mg/dl (70-99) L 06/09/25 07:18
Calcium 8.7 mg/dl (8.4-10.2) 06/09/25 07:18
Phosphorus 3.9 mg/dl (2.5-4.5) 06/07/25 08:21
Cjt-N-Ayiwigrgedn Pept Cancelled 05/27/25 12:44
Vitamin B12 590 pg/ml (778-931) 06/07/25 08:21
Patient Allergies
No Known Allergies Allergy (Verified 03/27/25 06:56)
Physical Exam
-
General: Appears Chronically Ill and Cachectic
HEENT: Normocephalic and Atraumatic
Neck: Full Range of Motion
Respiratory: No Dyspnea
Cardiac: No JVD
GI: Non-distended
Skin: Unremarkable
Extremities: No Clubbing, No Cyanosis and No Edema
Psych: Anxious
Extended Neurological Exam
Mood & Affect: Anxious
Attention Span & Concentration: Awake, Alert and Interactive
Memory: Unremarkable
Tremor: Continuous, At Rest and With Action
Involuntary Movement: None
Speech: Quality Unremarkable, Quantity Unremarkable and Rate of Production Unremarkable
Cranial Nerve II: Left Eye: Visual Jimenez Intact
Cranial Nerve II: Right Eye: Visual Jimenez Intact
Cranial Nerves III, IV, : Extraocular Movement: Extraocular Movement Full in all Directions
Cranial Nerve VII: Facial Symmetry: Normal Facial Symmetry
Cranial Nerve VIII: Hearing: Unremarkable Hearing to Normal Conversational Volume
Muscle Strength, Overall: Reduced Bilaterally (LE 4/5)
Muscle Bulk & Tone: Decreased Bulk (throughout)
Pronator Drift: No Drift in Upper Extremities and No Drift in Lower Extremities
Deep Tendon Reflexes: Absent (LE) and Other (2+ UEs)
Coordination: Wofrsp-ftvs-xumocc Testing Unremarkable
Data Reviewed
-
CT Head: Report Reviewed and Image Reviewed
MRI Head: Report Reviewed and Image Reviewed
Medical Test Reports: Report Reviewed
Labs: Report Reviewed
Reviewed with: Physician, Nurse and Patient
Old Records: Summarized
Medications
-
Active Medications
Generic Name Dose Route Start Last Admin
Trade Name Freq PRN Reason Stop Dose Admin
Acetaminophen 650 mg 05/07/25 16:58
Acetaminophen 325 Mg Tablet PO 06/29/25 16:57
Q4HPRN PRN
mild pain / fever
Ascorbic Acid 250 mg 05/08/25 08:00 06/08/25 12:01
Ascorbic Acid 250 Mg Tablet PO 06/29/25 07:59 Not Given
DAILY BITA
Bupropion HCl 150 mg 05/08/25 14:00 06/08/25 11:59
Bupropion (24hr) Extended Release 150 Mg Tablet PO 06/29/25 13:59 Not Given
DAILY BITA
Dextrose 12.5 grams 05/07/25 00:54 05/16/25 21:57
Dextrose 50% (0.5 Grams/Ml) 50 Ml Syringe IV 06/29/25 00:53 12.5 grams
[id number] PRN Administration
hypoglycemia
Protocol
Finasteride 5 mg 05/08/25 08:00 06/08/25 11:59
Finasteride 5 Mg Tablet PO 06/29/25 07:59 Not Given
DAILY BITA
Glucagon 1 mg 05/07/25 00:54
Glucagon 1 Mg Vial IM 06/29/25 00:53
PRN PRN
hypoglycemia
Protocol
Heparin Sodium 5,000 units 05/06/25 20:00 06/08/25 19:44
Heparin 5,000 Units/Ml 1 Ml Vial SC 06/29/25 19:59 5,000 units
Q12 BITA Administration
Cefazolin Sodium 1 gram in 5 mls @ 60 mls/hr 06/07/25 18:00 06/08/25 18:04
Ancef IV 06/10/25 18:04 5 mls
QPM BITA Administration
Insulin Aspart 0 units 05/25/25 18:00 06/08/25 16:48
Insulin Aspart Low Resistance 300 Units/3 Ml Pen.Injctr SC 06/22/25 17:59 Not Given
AC BITA
Protocol
Levothyroxine Sodium 50 mcg 06/07/25 13:00 06/09/25 06:09
Levothyroxine 50 Mcg Tablet PO 07/05/25 12:59 Not Given
DAILY @ 0600 BITA
Lorazepam 1 mg 06/08/25 13:28
Lorazepam 1 Mg Tablet PO 07/06/25 13:27
Q8HPRN PRN
anxiety/insomnia
Lorazepam 2 mg 06/08/25 22:00 06/08/25 21:52
Lorazepam 2 Mg Tablet PO 07/06/25 21:59 2 mg
HS BITA Administration
Metoprolol Tartrate 12.5 mg 06/02/25 10:00 06/08/25 19:42
Metoprolol 12.5 Mg Regular Release Dose (1/2 Of 25 Mg Tablet) PO 06/30/25 09:59 12.5 mg
BID BITA Administration
Miconazole Nitrate 0 applic 05/11/25 20:00 06/08/25 19:46
Miconazole Powder Bottle TOPICAL 06/30/25 19:59 1 applic
BID BITA Administration
Miconazole Nitrate 0 applic 05/17/25 20:00 06/08/25 19:46
Miconazole 2% (Same As Aloe [place]) Ointment Tube TOPICAL 06/14/25 19:59 1 applic
BID BITA Administration
Midodrine 2.5 mg 06/07/25 13:00 06/08/25 18:03
Midodrine 2.5 Mg Tablet PO 2.5 mg
TID@0800,1300,1800 BITA Administration
Multivitamins Therapeutic 1 tablet 05/08/25 08:00 06/08/25 11:46
Multivitamin Tablet PO 06/29/25 07:59 1 tablet
DAILY BITA Administration
Pantoprazole Sodium 40 mg 06/03/25 20:00 06/08/25 19:44
Pantoprazole 40 Mg Delayed Release Tablet PO 07/01/25 19:59 40 mg
BID BITA Administration
Phenol 1 spray 05/06/25 19:10 05/29/25 12:11
Chloraseptic (1.4% Phenol) Throat [place] PO 06/29/25 19:09 1 spray
Q2HPRN PRN Administration
sore thorat
Polyethylene Glycol 17 grams 05/07/25 20:00 06/08/25 19:50
Polyethylene Glycol Powder 17 Grams Packet PO 06/29/25 19:59 Not Given
BID BITA
Prochlorperazine Edisylate 5 mg 05/20/25 11:11 06/05/25 08:25
Prochlorperazine 10 Mg/2 Ml Vial IV 06/17/25 11:10 5 mg
Q6HPRN PRN Administration
nausea
Quetiapine Fumarate 25 mg 06/08/25 17:28
Quetiapine 25 Mg Tablet PO 07/06/25 17:27
QIDPRN PRN
agitation
Saliva Substitute 0 spray 05/08/25 13:00 06/08/25 21:56
Saliva Substitute ([place]) Mouth [place] PO 06/29/25 12:59 Not Given
QID BITA
Sennosides 8.6 mg 05/07/25 20:00 06/08/25 19:50
Sennosides (Senokot) 8.6 Mg Tablet PO 06/29/25 19:59 Not Given
BID BITA
Sodium Chloride 0 flush 05/06/25 21:00 05/24/25 09:51
Sodium Chloride 0.9% (Flush) Syringe IV 06/29/25 20:59 3 flush
PER PROTOCOL BITA Administration
Tamsulosin HCl 0.4 mg 05/07/25 22:00 06/08/25 21:52
Tamsulosin 0.4 Mg Capsule PO 06/29/25 21:59 0.4 mg
HS BITA Administration
Thiamine HCl 100 mg 05/08/25 08:00 06/08/25 12:01
Thiamine 100 Mg Tablet PO 06/29/25 07:59 Not Given
DAILY BITA
Home Medications
�Medication �Instructions �Recorded
Buproprion 50mg/5ml 10 ml feeding tube TID Depression 05/06/25
Finasteride 5mg/5ml 5 ml feeding tube DAILY Urinary 05/06/25
Issue
acetaminophen 160 mg/5 mL (5 mL) 640 mg feeding tube Q4HPRN PRN 05/06/25
oral solution mild pain
ascorbic acid (vitamin C) 250 mg 250 mg feeding tube DAILY 05/06/25
tablet (Vitamin C) Supplement
baclofen 10 mg/5 mL (2 mg/mL) oral 5 mg feeding tube TIDPRN PRN 05/06/25
solution hiccups
bisacodyl 10 mg rectal suppository 10 mg ME DAILYPRN PRN constipation 05/06/25
(Dulcolax (bisacodyl))
calcium carbonate 1,000 mg PO Q8HPRN PRN heartburn 05/06/25
cefazolin 2 gram/20 mL in sterile 20 ml IV BID Infection 05/06/25
water intravenous syringe
folic acid 1 mg tablet 1 mg feeding tube DAILY Supplement 05/06/25
heparin (porcine) 5,000 unit/mL 5,000 unit SC BID Blood Clot 05/06/25
injection syringe Prevention/Tx
insulin aspart U-100 100 unit/mL 0 - 6 sliding scale dose SC BID 05/06/25
subcutaneous solution Diabetes
lansoprazole 15 mg delayed 15 mg feeding tube DAILY 05/06/25
release,disintegrating tablet Gastrointestinal Issue
lidocaine 5 % topical patch 2 patch topical DAILY Pain 05/06/25
lorazepam 0.5 mg tablet 0.5 mg PO TIDPRN PRN anixety 05/06/25
morphine 15 mg tablet,extended 15 mg PO Q12H Pain 05/06/25
release (MS Contin)
ondansetron HCl (PF) 4 mg/2 mL 4 mg IM TID nausea 05/06/25
injection solution
oxybutynin chloride 5 mg tablet 5 mg PO TIDPRN PRN colic pain from 05/06/25
stent
oxycodone 5 mg/5 mL oral solution 5 mg PO Q4HPRN PRN severe pains 05/06/25
oxycodone 5 mg/5 mL oral solution 10 mg feeding tube Q4HPRN PRN 05/06/25
severe pain
phenol 1.4 % mucosal aerosol spray 1 spray mucous membrane Q2HPRN PRN 05/06/25
sore throat
polyethylene glycol 3350 17 gram 17 g feeding tube BID Constipation 05/06/25
oral powder packet (Miralax)
prochlorperazine edisylate 10 mg/2 10 mg IM Q6HPRN PRN nausea 05/06/25
mL (5 mg/mL) injection solution
scopolamine base 1 mg over 3 days 1 patch transdermal Q3D nausea 05/06/25
transdermal patch
sennosides 8.8 mg/5 mL oral syrup 17.6 mg feeding tube BID 05/06/25
(senna) Constipation
sodium citrate-citric acid 500 30 ml feeding tube BID Supplement 05/06/25
mg-334 mg/5 mL oral solution
thiamine HCl (vitamin B1) 100 mg 100 mg feeding tube DAILY 05/06/25
tablet Supplement
zinc oxide 40 % topical ointment 1 applic topical DAILYPRN PRN 05/06/25
damage skin
zinc sulfate 50 mg zinc (220 mg) 50 mg feeding tube DAILY Supplement 05/06/25
capsule
Past History
Past History
ED Past Medical History: None
ED Past Surgical History: None
Family/Social History
Tobacco: Smoker
Alcohol: None
--- NOTE | 2025-06-09 09:10 | W.PN.HOSP.TC ---
Today's Communication/Plan
-
Ongoing workup for protracted encephalopathy and now fever
Repeat chest x-ray (aspiration risk)
Noted with negative blood and urine cultures
Neurology evaluation
Consider to repeat enhanced MRI, LP
ACTH stim test
Remains on IV antibiotics
Remains on hemodialysis
Continue protective interventions, frequent reorientation
Was not able to contact patient's spouse. Plan of care discussed with patient's sister over the phone.
Assessment / Plan
Assessment / Plan
Impression/plan
49yo M with PMHx of past medical history notable for metastatic RCC (s/p prior nephrectomy 12/2024) complicated by spinal mets and spinal infection (s/p prior washout ) with MSSA bacteremia, obstructive uropathy (s/p R JJ stent 04/2025),
previous uremia (s/p iHD), severe protein calorie malnutrition (s/p previous DHT) and ongoing nausea and odynophagia, CKD Initially presented on 03/27/25 to with worsening b/l LE weakness and found malignant soft tissue compressing spinal canal.
Had decompression and emolization done in [facility], then developed complication with spinal postOP wound infection with wound dehiscence and MSSA bacteremia s/p washout and woundVAc planned on Ancef till 06/10/25 and then chronic suppressive therapy.
Patient found hydronephrosis of his solitary R kidney and JJ stent placed. Developed worsening POLA finally requiring HD started on 05/18/25. Found elevated PR3, however with active infection and uncertain clinical value of this positive test - renal
biopsy and Rituxan therapy was declined by nephrology.
Patient with poor oral intake since developed feeling of dysphagia after recent surgery. Self-removed NG tube and declined PEG, planning to increase his oral intake to be able to improve calorie balance. GI called for nausea and odynophagia, so GI
did EGD on 05/25/25 without esophagitis, ulcerations or abnormalities, multiple gastric polyps seen, patchy erythema of duodenal bulb. GI advised empiric fluconazole for 14 days due to Hx of esophageal candidiasis. Plastic Sx consulted on 05/30/25
for postOP drain removal due to missed planned appt with current hospitalization. PT/OT recommended acute rehab, pending physiatry eval
ALso developed hallucinations both visual and acoustic on 06/05/25
MSSA Bacteremia secondary to Spinal Infection
- Continue cefazolin 2gm q12h through Jun 10
- Will likely need chronic cefadroxil afterwards
- Follow-up schedule with ID at [facility]
-Wound VAC present on transfer to [facility] on 05/11
- Initially with bilateral paraspinal JEEVAN drain. One of the JEEVAN drain has been removed by plastic surgery. Continue wound care. Outpatient follow-up with surgery at [facility].
Metastatic Renal Cell Carcinoma
met to Spinal Column Metastasis
s/p Left L1 & B/L L2 Segmental Artery Embolization (03/30/25); T12-L2 laminectomy, Left L1/2 corpectomy, T11-L4 fusion (03/31/25); Thoracolumbar Wound Washout with PRS closure (04/30/2025).
In review of recent PET/CT on 02/27/2025 there is also high FDG activity/pulmonary nodule left upper lobe.
oncology signed off, rec 'OP follow up with [facility] oncologist recommended after discharge to discuss systemic therapy options base on resolution of infection, renal function, nutritional status, and performance status.'
MRI of the brain, ordered with persistent nausea and emesis and concern for central symptoms, negative for intracranial disease.
Acute kidney injury
Elevated anion gap metabolic acidosis.
Status post left nephrectomy for RCC.
Obstructive uropathy with right JJ stent placed on 05/05/[address]
[place] catheter in place.
Continue Flomax and Proscar
Appreciate nephrology input, dialysis started 05/18/25
Continue dialysis as per nephrology
Hypotensive initiated on midodrine 2.5 mg 3 times daily.
Chronic normocytic anemia
Iron studies indicative of mild iron deficiency and anemia of chronic disease. Per heme/onc, no role for supplementation
Erythropoietin level of 4, low end of normal range.
Follow hemoglobin, transfuse if Hgb<7
Concern for esophageal candidiasis
With persistent odynophagia will start empiric treatment with Diflucan.
Continue acid suppression increasing Protonix to 40 mg IV twice daily.
EGD 05/25 with no abnormalities.
Completed empiric course of nystatin and Diflucan for 14 days.
SVT�sinus tachycardia.
Had 1 vasovagal episode/presyncope on 05/20.
Initiated on low-dose of beta-blockers
Additional workup including:
ECG sinus tach
Monitor on telemetry
Pro CHF BNP mildly elevated at 790
Echocardiogram with preserved biventricular function and no evidence for RV strain
Lower extremity Dopplers negative
Hemoglobin has been stable
VQ scan low probability
Prolonged QTc
Stop Remeron and Zofran
Improved
Avoid QT prolonging medications
Protracted encephalopathy. Suspect multifactorial metabolic toxic encephalopathy
Initially mental status, appetite, nausea and emesis improved with initiation of hemodialysis (possibly related to uremia)
Currently with agitation and visual hallucinations.
Brain imaging including MRI with no evidence of intracranial disease
Additional ID workup with no evidence of new infection.
Psychiatry input appreciated with concern for hypnopompic hallucinations possibly related to situational stress, disruption of sleep cycle and prolonged hospitalization.
Neurology consultation
Given fever, consider LP, repeat enhanced MRI of the brain
ACTH stim test (encephalopathy, persistent hypoglycemia)
Blood culture from 06/07, urine cultures negative to date
Chest x-ray with concern of aspiration.
Will try and titrate benzodiazepines.
Increase lorazepam to 1 mg every 8 hours as needed for agitation with standing dose at 2 mg at bedtime. Monitor closely.
Consider low-dose of Seroquel at night, although with close QTc monitoring
Subclinical hypothyroidism.
TSH about 15.
T4/T3 marginal.
Initiated on levothyroxine 50 mcg daily on 06/07
Pain Management
-Patient previously on Morphine ER which was switched to Morphine IR when DHT was placed
-Patient had been refusing scheduled doses of narcotics
-Continue oxycodone PRN
Anxiety / Depression
-Continue bupropion
Deconditioning
-PM&R rec acute rehab once eating well or other nutrition plan in place
DVT proph: SC Heparin
Code Status: Full Code
Dispo - acute inpatient rehab
Anticipated Discharge: > 48 hours
Subjective/Interval History
-
Date of Service: June 09, 2025
Objective Data
-
Labs:
Laboratory Results
06/09/25
07:18
WBC 3.0 L
Hgb 7.7 L
Hct 25.0 L
Plt Count 185
Sodium 135
Potassium 3.6
Chloride 104
Carbon Dioxide 27
BUN 5 L
Creatinine 2.3 H
Glucose 65 L
Calcium 8.7
Vital Signs:
Vital Signs
Temp Pulse Resp BP Pulse Ox
97.1 F 93 16 103/68 99
06/09/25 08:17 06/09/25 08:17 06/09/25 08:17 06/09/25 08:17 06/09/25 08:17
I&O
06/08/25 06/09/25 06/10/25
06:59 06:59 06:59
Intake Total 1080 / 1080 480 / 480 120 / 120
Output Total 1100 / 1100 450 / 450 200 / 200
Balance -20 / -20 30 / 30 -80 / -80
Physical Exam
-
General: Well Developed and No Apparent Distress
HEENT: Normocephalic, Atraumatic and Moist Mucous Membranes
Respiratory: Clear to Auscultation
Cardiac: Regular Rhythm and S1/S2; Negative Murmur, Rub or Gallop
GI: Soft, Nontender, Nondistended and Normal Bowel Sounds; Negative Organomegaly
Rectal: Deferred by Provider
Genito-urinary: [place]
Musculoskeletal: No Clubbing, No Cyanosis and No Edema
Skin: Negative Rash
Neuro: Nonfocal/Grossly Intact and Other (Lethargic, waking up and answering simple questions.)
--- NOTE | 2025-06-09 09:30 | PTCARENOTE ---
patient aaox3, anxious, answering simple questions. visible b/l hand tremors, cachectic appearing,restraints off at 0905. was initially lethargic at 0715, turns with assist x2, vss, will continue to monitor.
--- NOTE | 2025-06-09 09:39 | W.PN.ID1 ---
Date of Service
Date of Service: June 09, 2025
Today's Communication
Last day cefazolin, then lifelong po cephalexin tomorrow.
Assessment / Plan
# Metastatic renal cell carcicoma with mets(biopsy positive) to spine with cord compression s/p embolization 03/30
# Recent MSSA Lumbar spine abscess/discitis s/p T12-L2 lami and L L1/2 transpedicular approach for L1/2 corpectomy, T11-L4 fusion with instrumentation 03/31 at [facility]
Purulence noted in OR, epidural swab + MSSA
# Recent sustained MSSA bacteremia 04/01 - 04/04 at [facility]
# Lumbar wound dehiscence s/p washout, cx's negative, 04/30/25
# Recent obstructive uropathy s/p JJ stent -> ESRD now on HD
# Prolonged Encephalopathy. MRI brain: no mets.
# Dysphagia and poor appetite. EGD unremarkable
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
- Rectal temp 100.6 x1 overnight. Monitor for now
- To complete cefazolin through today 06/09/25 (close to 9 week total course, 6 weeks from lumbar wound dehiscence surgery).
- Tomorrow, start lifelong suppressive therapy with cephalexin 500mg qPM for spine hardware instrumentation in an infected field.
- Not candidate for chemo. Overall poor prognosis. GOC/Hospice discussion.
Chief Complaint
-: Other (MSSA infection)
Subjective / Review of Systems
Denies pain.
Vital Signs / Physical Exam
Vital Signs
Vital Signs
Temp Pulse Resp BP Pulse Ox
97.1 F 93 16 103/68 99
06/09/25 08:17 06/09/25 08:17 06/09/25 08:17 06/09/25 08:17 06/09/25 08:17
Physical Exam
Constitutional: Chronically Ill and Cachetic
Head: Other (No sinus tenderness)
Eyes: Sclera Anicteric
Cardiovascular: Regular Rate and S1/S2
Pulmonary: Clear
Gastrointestinal: Soft, Non Tender, Non Distended and Normal Bowel Sounds
Genito-Urinary: Clear Urine; Negative CVA Tenderness
Extremities: Negative Edema
Neurological: Awake and Tremors; Negative Meningeal Signs
Psychological: Confused
Lines: HD Cath (RCW no erythema)
Objective Data
Lab Data
Lab Results
06/09/25 07:18
06/09/25 07:18
PT 16.3 Sec (11.4-14.6) H 06/07/25 08:21
INR 1.30 06/07/25 08:21
APTT 41.3 Sec (23.4-35.0) H 06/07/25 08:21
Estimated Creat Clear 28 ml/min 06/09/25 07:18
Total Bilirubin 0.4 mg/dl (0.2-1.3) 06/07/25 08:21
AST 17 U/L (17-59) 06/07/25 08:21
ALT < 10 U/L (0-50) 06/07/25 08:21
Alkaline Phosphatase 114 U/L (38-126) 06/07/25 08:21
Most recent labs reviewed.
Micro Results:
06/07/25 08:52 Blood Culture - Preliminary
Blood/Venous No Growth in 48 hours- Final report to follow
06/07/25 08:21 Blood Culture - Preliminary
Blood/Venous No Growth in 48 hours- Final report to follow
06/07/25 12:16 Urine Culture - Final
Urine NO GROWTH
05/07/25 00:31 MRSA Screen - Final
Nose No Methicillin Resistant Staphylococcus aureus isolated.
renal u/s on 05/08/25:
- IMPRESSION: Eldridge catheter is present within the bladder, with estimated bladder volume of 70 cc. No ureteral jets are demonstrated.
Status post left nephrectomy.
Right ureteral stent is visualized. Mild right pelvicalyceal dilation.
Echogenicity of the right kidney appears diffusely increased relative to the liver, a nonspecific finding suggesting medical renal disease.
Brain MRI on 05/14/25:
IMPRESSION:
1. No MRI evidence for intracranial metastatic disease.
2. 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
3. Low-lying cerebellar tonsils.
4. Moderate discogenic degenerative disease at C4/C5 and C5/C6 with small disc-osteophyte complexes causing mild spinal cord compression.
Head CT on 06/07/25:
- IMPRESSION:
1. No CT evidence for acute intracranial hemorrhage or transcortical infarct.
2. 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
3. Low-lying cerebellar tonsils.
Chest Xray on 06/07/25:
- IMPRESSION:
1. No radiographic evidence for pneumonia, acute pulmonary edema, or pleural effusion.
2. Mild elevation of the right hemidiaphragm.
3. Right IJ hemodialysis catheter in place.
4. Previous posterior lower thoracolumbar instrumentation.
Care Review
Plan reviewed with: Physician (Dr. Michel)
[2025-06-09] MEDS: PROTONIX 40 MG PO ×2 (09:43→21:02)
[2025-06-09] MEDS: LOPRESSOR 12.5 MG PO ×2 (09:43→21:02)
[2025-06-09] MEDS: WELLBUTRIN XL (24 hour extended release) 150 MG PO (09:43)
[2025-06-09] MEDS: PROSCAR 5 MG PO (09:43)
[2025-06-09] MEDS: HEPARIN SC (09:44)
[2025-06-09] MEDS: OASIS PO ×4 (09:44→22:41)
[2025-06-09] MEDS: SENOKOT PO ×2 (09:45→21:09)
[2025-06-09] MEDS: THERAGRAN PO (09:46)
[2025-06-09] MEDS: VITAMIN C PO (09:47)
[2025-06-09] MEDS: VITAMIN B1 PO (09:47)
[2025-06-09] MEDS: ANTIFUNGAL CLEAR 1 APPLIC TOPICAL ×2 (09:48→21:04)
[2025-06-09] MEDS: DESENEX/MITRAZOL/ZEASORB 1 APPLIC TOPICAL ×2 (09:48→21:04)
[2025-06-09] MEDS: CORTROSYN 0.25 MG IV (11:23)
[2025-06-09 11:24] LABS: ACTH Stim Cortisol 0 Min 15.1 ug/dl
[2025-06-09] MEDS: NSS (PRESERVATIVE FREE) 1 ML IV (11:24)
[2025-06-09 11:51] LABS: Glucose - Point of Care 71 mg/dl (70-99)
[2025-06-09 12:57] LABS: ACTH Stim Cortisol 30 Min 22.8 ug/dl
[2025-06-09 13:54] LABS: ACTH Stim Cortisol 60 Min 30.7 ug/dl
--- NOTE | 2025-06-09 15:36 | W.PN.UPDATE ---
Update Note
Progress Note Update
events of last night noted. pt calmer today, no longer unaware of surroundings as he was yesterday. scrolling thourgh his tablet 'catching up on the news' able to give reasonable synopsis of world events. still very frail-appearing, mildly
tremulous.
[2025-06-09 15:39] LABS: Iron 31 ug/dl (49-181)
[2025-06-09 15:48] LABS: Total Iron Binding Capacity 97 ug/dl (261-462)
--- NOTE | 2025-06-09 16:12 | W.PN.NEPH.PH ---
Today's Communication / Plan
-
HD tomorrow
Assessment/Plan
-
IMP:
POLA
Metastatic Renal Cell Carcinoma with Spinal Column Metastasis and subsequent Spinal Infection s/p Left L1 & B/L L2 Segmental Artery Embolization (03/30/25); T12-L2 laminectomy, Left L1/2 corpectomy, T11-L4 fusion (03/31/25); Thoracolumbar Wound
Washout with PRS closure (04/30/2025).
recent PET/CT on 02/27/2025 there is also high FDG activity/pulmonary nodule left upper lobe.
MSSA Bacteremia secondary to Spinal Infection
Status post left nephrectomy for RCC.
Acute urine retention
Obstructive uropathy with right JJ stent placed on 05/05/2025
Elevated anion gap metabolic acidosis.
Chronic normocytic anemia
Severe Protein Calorie Malnutrition
Anxiety / Depression
Hyperalbuminemia
Plan:
HD tomorrow
he remains non oliguric with lovett
hemodynamically stable on low dose midodrine
Consideration for feeding tube
neuro consulted for encephalopathy
follow fever w/u, cx neg
abx per ID
-
-
Date of Service: June 09, 2025
CC / HPI / ROS
-
Chief Complaint:
POLA
History of Present Illness:
POLA/Cr HD started for uremia now on Sunday schedule
Hgb low 7.7
BP soft
tolerated HD yesterday
Review of Systems:
no CP/SOB
nonoliguric with lovett
fever last night
mo re awake and talking
Labs
-
Labs:
WBC 3.0 10^3/uL (4.8-10.8) L 06/09/25 07:18
RBC 2.50 10^6/uL (4.70-6.10) L 06/09/25 07:18
Hgb 7.7 g/dL (13.0-18.0) L 06/09/25 07:18
Hct 25.0 % (39.0-52.0) L 06/09/25 07:18
Plt Count 185 10^3/uL (130-400) 06/09/25 07:18
Sodium 135 mmol/L (135-145) 06/09/25 07:18
Potassium 3.6 mmol/L (3.5-5.1) 06/09/25 07:18
Chloride 104 mmol/L (98-107) 06/09/25 07:18
Carbon Dioxide 27 mmol/L (22-30) 06/09/25 07:18
BUN 5 mg/dl (9-20) L 06/09/25 07:18
Creatinine 2.3 mg/dL (0.7-1.3) H 06/09/25 07:18
eGFR 33.54 06/09/25 07:18
Glucose 65 mg/dl (70-99) L 06/09/25 07:18
Calcium 8.7 mg/dl (8.4-10.2) 06/09/25 07:18
Phosphorus 3.9 mg/dl (2.5-4.5) 06/07/25 08:21
Ccd-I-Rvensrzlvzm Pept Cancelled 05/27/25 12:44
Albumin 2.7 g/dl (3.5-5.0) L 06/07/25 08:21
Physical Exam
-
Vital Signs:
Vital Signs
Temp Pulse Resp BP Pulse Ox
97.8 F 95 15 109/74 99
06/09/25 15:04 06/09/25 15:04 06/09/25 15:04 06/09/25 15:04 06/09/25 15:04
Cardiovascular:: Regular rate and rhythm
Respiratory:: Bilateral: CTA
Lung Excursion:: Normal
Abdomen:: Nontender and Soft
Bowel Sounds:: Normal
Extremity Edema:: None: Bilateral:
Lovett Catheter: Yes
[2025-06-09 16:26] LABS: Ferritin 570.0 ng/ml (17.9-464.0)
--- NOTE | 2025-06-09 16:39 | CM ---
CM continues to follow for discharge planning to [facility] [place].
Patient's mentation has improved and he participated in PT and OT today. Acute Rehab is recommended; pt has previously been referred to [facility] [place] due to need for dialysis which cannot be accommodated at [facility].
Referral updated in [facility]. CM will continue to follow for acceptance and insurance authorization.
[2025-06-09] MEDS: ANCEF 5 IV (17:35)
[2025-06-09 18:43] LABS: Glucose - Point of Care 122 mg/dl (70-99)
--- NOTE | 2025-06-09 18:43 | PTCARENOTE ---
pt ate large cheeseburger from [employer] for dinner
--- NOTE | 2025-06-09 18:43 | PTCARENOTE ---
since mid morning, patient 0930, patient has been aaox3, aware of surroundings. most of day, he has been scrolling on his tablet and 'Catching up with the news', will continue to monitor.
[2025-06-09] MEDS: HEPARIN 5000 UNITS SC (21:03)
[2025-06-09 21:50] LABS: Glucose - Point of Care 464 mg/dl (70-99)
[2025-06-09 22:25] LABS: Glucose 134 mg/dl (70-99)
[2025-06-09 22:35] LABS: Glucose - Point of Care 198 mg/dl (70-99)
[2025-06-09] MEDS: FLOMAX 0.4 MG PO (22:40)
[2025-06-09] MEDS: ATIVAN 2 MG PO (22:40)
[2025-06-10 00:29] LABS: Glucose - Point of Care 90 mg/dl (70-99)
[2025-06-10 02:47] LABS: Glucose - Point of Care 71 mg/dl (70-99)
[2025-06-10] MEDS: SEROQUEL 25 MG PO (02:56)
[2025-06-10 03:00] VITALS: BP 112/74
[2025-06-10 03:15] VITALS: BMI 16.8
--- NOTE | 2025-06-10 06:08 | PTCARENOTE ---
patient refusing CHG cloth bath and Synthroid. patient educated on importance of CHG cloth bath and Synthroid. will pass on to dayshift to give patient CHG cloth bath and Synthroid. POC ongoing.
[2025-06-10] MEDS: PROTONIX 40 MG PO ×2 (07:39→20:57)
[2025-06-10] MEDS: VITAMIN B1 100 MG PO (07:40)
[2025-06-10] MEDS: VITAMIN C 250 MG PO (07:40)
[2025-06-10] MEDS: HEPARIN 5000 UNITS SC ×2 (07:40→21:00)
[2025-06-10] MEDS: LOPRESSOR 12.5 MG PO (07:40)
[2025-06-10] MEDS: WELLBUTRIN XL (24 hour extended release) 150 MG PO (07:40)
[2025-06-10] MEDS: PROSCAR 5 MG PO (07:41)
[2025-06-10] MEDS: SYNTHROID 50 MCG PO (07:41)
[2025-06-10] MEDS: OASIS PO ×4 (07:41→21:03)
[2025-06-10] MEDS: SENOKOT PO ×2 (07:42→20:56)
[2025-06-10] MEDS: THERAGRAN 1 TABLET PO (07:42)
[2025-06-10] MEDS: ANTIFUNGAL CLEAR 1 APPLIC TOPICAL ×2 (07:50→20:59)
[2025-06-10] MEDS: DESENEX/MITRAZOL/ZEASORB 1 APPLIC TOPICAL ×2 (07:50→20:59)
[2025-06-10 07:58] LABS: Glucose - Point of Care 107 mg/dl (70-99)
[2025-06-10 08:03] VITALS: BP 105/72
[2025-06-10] MEDS: NOVOLOG FLEXPEN-LOW RESISTANCE SC ×3 (08:11→17:09)
--- NOTE | 2025-06-10 09:19 | PTCARENOTE ---
Another RN came to this RN and stated this pt fell around 0910 OOB. Pt states they did not 'fall' out of bed, but rather slid out of bed. Per other RN, pt was found with knees on floor, facing bed, with torso and arms on bed. Pt was lifted back into
bed and placed in semi-fowlers position. Head to toe assesment performed. Pt found to have 2 superficial abrasions on BL shins with no active bleeding. High fall risk precautions in place at time of fall. Pt reminded to call for assistance. Pt has
no requests or needs at this time. made aware.
--- NOTE | 2025-06-10 09:24 | W.PN.NEURO.1 ---
Addendum entered and electronically signed by Jonathon Vázquez MD 06/10/25 12:32:
Studies reviewed.
I have personally examined the patient. I reviewed and agree with the MEDICAL CENTER DIRECTOR's Note.
My addenda:
Awake, interactive. No acute distress.
Speech intact.
Follows 2-step requests w/o difficulty. Present distal low amplitude with action in bilateral upper extremities tremor.
Extra-ocular movements grossly intact.
Facial movements full and symmetric. Hearing intact to normal conversational volume.
Normal UE movements bilaterally.
Neck: full ROM.
Chest: no dyspnea
Heart: no JVD
Ext: (-) Clubbing, (-) Cyanosis, (-) Edema
IMPRESSIONS/RECOMMENDATIONS:
Abrupt onset of worsening encephalopathy
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
Recheck MRI of brain with and without contrast to evaluate for metastatic disease
Consider new lumbar puncture to determine if there are still infectious risk for the patient
Start thiamine
D/W patient
All questions answered.
Will continue to follow patient.
Original Note:
Today's Communication / Plan
-
.
Neuro Assessment/Plan
Assessment
IMPRESSIONS/RECOMMENDATIONS:
Abrupt onset of worsening encephalopathy in a patient with fever and hypoglycemia as well as known metastatic renal cell carcinoma. MRI of the brain approximately 1 month ago was unrevealing for metastatic disease.
Confusion persists today.
Brain MRI 05/14/25:
1. No MRI evidence for intracranial metastatic disease.
2. 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
3. Low-lying cerebellar tonsils.
4. Moderate discogenic degenerative disease at C4/C5 and C5/C6 with small disc-osteophyte complexes causing mild spinal cord compression.
Plan
-obtain brain MRI with and without contrast
-pending results of brain MRI, may consider lumbar puncture
-appreciate ID recommendations
-supportive care
All questions encouraged and answered, plan of care discussed with patient and Dr. Vázquez
Subjective/Objective
Subjective Data
Date of Service: June 10, 2025
Patient attempted to get out of bed and walk independently this morning and 'slid' to the floor. New abrasions noted on bilateral shins. He reports some confusion, most noticeable in the morning.
Objective Data
Vital Signs
Temp Pulse Resp BP Pulse Ox
98.3 F 94 14 105/72 98
06/10/25 08:03 06/10/25 08:03 06/10/25 08:03 06/10/25 08:03 06/10/25 08:03
Lab Results
06/09/25 07:18
06/09/25 22:05
PT 16.3 Sec (11.4-14.6) H 06/07/25 08:21
INR 1.30 06/07/25 08:21
APTT 41.3 Sec (23.4-35.0) H 06/07/25 08:21
Sodium 135 mmol/L (135-145) 06/09/25 07:18
Potassium 3.6 mmol/L (3.5-5.1) 06/09/25 07:18
BUN 5 mg/dl (9-20) L 06/09/25 07:18
Glucose 134 mg/dl (70-99) H 06/09/25 22:05
Calcium 8.7 mg/dl (8.4-10.2) 06/09/25 07:18
Phosphorus 3.9 mg/dl (2.5-4.5) 06/07/25 08:21
Kdh-I-Vqtblbddujp Pept Cancelled 05/27/25 12:44
Vitamin B12 590 pg/ml (239-931) 06/07/25 08:21
Patient Allergies
No Known Allergies Allergy (Verified 03/27/25 06:56)
Review of Systems
-
History Source: Patient
EENT: Negative Blurry Vision, Decreased Vision or Swallowing Difficulty
Neuro: Weakness; Negative Dizzy, Headache, Numbness, Ataxia, Tremors or Speech Problem
Physical Exam
-
General: No Apparent Distress
Eyes: No Ptosis and PERRLA
HEENT: Normocephalic and Atraumatic
Neck: Full Range of Motion
GI: Non-distended
Extremities: No Clubbing, No Cyanosis and No Edema
Psych: Confused
Extended Neurological Exam
Mood & Affect: Mood Unremarkable and Affect Unremarkable
Attention Span & Concentration: Awake, Alert and Interactive
Memory: Reduced
Tremor: Hand Tremor Absent and Head Tremor Absent
Involuntary Movement: None
Speech: Quality Unremarkable, Quantity Unremarkable and Rate of Production Unremarkable
Cranial Nerves III, IV, : Extraocular Movement: Extraocular Movement Full in all Directions
Cranial Nerve VII: Facial Symmetry: Normal Facial Symmetry
Cranial Nerve VIII: Hearing: Unremarkable Hearing to Normal Conversational Volume
Cranial Nerve XII: Tongue Protusion: Midline
Muscle Strength, Overall: Spontaneously Moves
Data Reviewed
-
CT Head: Report Reviewed and Image Reviewed
MRI Head: Report Reviewed and Image Reviewed
Labs: Report Reviewed
Reviewed with: Physician and Patient
Medications
-
Active Medications
Generic Name Dose Route Start Last Admin
Trade Name Freq PRN Reason Stop Dose Admin
Acetaminophen 650 mg 05/07/25 16:58
Acetaminophen 325 Mg Tablet PO 06/29/25 16:57
Q4HPRN PRN
mild pain / fever
Albumin Human 12.5 grams 06/10/25 08:00
Albumin 12.5 Grams/50 Ml Bag *For Hemodialysis* IV 06/10/25 23:59
HD-Q1HPRN PRN
SBP < 90 mmHg
Ascorbic Acid 250 mg 05/08/25 08:00 06/10/25 07:40
Ascorbic Acid 250 Mg Tablet PO 06/29/25 07:59 250 mg
DAILY BITA Administration
Bupropion HCl 150 mg 05/08/25 14:00 06/10/25 07:40
Bupropion (24hr) Extended Release 150 Mg Tablet PO 06/29/25 13:59 150 mg
DAILY BITA Administration
Cephalexin HCl 500 mg 06/10/25 18:00
Cephalexin 500 Mg Capsule PO 09/07/25 18:01
QPM BITA
Dextrose 12.5 grams 05/07/25 00:54 05/16/25 21:57
Dextrose 50% (0.5 Grams/Ml) 50 Ml Syringe IV 06/29/25 00:53 12.5 grams
[id number] PRN Administration
hypoglycemia
Protocol
Finasteride 5 mg 05/08/25 08:00 06/10/25 07:41
Finasteride 5 Mg Tablet PO 06/29/25 07:59 5 mg
DAILY BITA Administration
Glucagon 1 mg 05/07/25 00:54
Glucagon 1 Mg Vial IM 06/29/25 00:53
PRN PRN
hypoglycemia
Protocol
Heparin Sodium 5,000 units 05/06/25 20:00 06/10/25 07:40
Heparin 5,000 Units/Ml 1 Ml Vial SC 06/29/25 19:59 5,000 units
Q12 BITA Administration
Insulin Aspart 0 units 05/25/25 18:00 06/10/25 08:11
Insulin Aspart Low Resistance 300 Units/3 Ml Pen.Injctr SC 06/22/25 17:59 Not Given
AC BITA
Protocol
Levothyroxine Sodium 50 mcg 06/07/25 13:00 06/10/25 07:41
Levothyroxine 50 Mcg Tablet PO 07/05/25 12:59 50 mcg
DAILY @ 0600 BITA Administration
Lorazepam 1 mg 06/08/25 13:28
Lorazepam 1 Mg Tablet PO 07/06/25 13:27
Q8HPRN PRN
anxiety/insomnia
Lorazepam 2 mg 06/08/25 22:00 06/09/25 22:40
Lorazepam 2 Mg Tablet PO 07/06/25 21:59 2 mg
HS BITA Administration
Mannitol 12.5 grams 06/10/25 08:00
Mannitol 25% (12.5 Grams/50 Ml) Vial IV 06/10/25 23:59
HD-Q1HPRN PRN
SBP < 90 mmHg
Metoprolol Tartrate 12.5 mg 06/02/25 10:00 06/10/25 07:40
Metoprolol 12.5 Mg Regular Release Dose (1/2 Of 25 Mg Tablet) PO 06/30/25 09:59 12.5 mg
BID BITA Administration
Miconazole Nitrate 0 applic 05/11/25 20:00 06/10/25 07:50
Miconazole Powder Bottle TOPICAL 06/30/25 19:59 1 applic
BID BITA Administration
Miconazole Nitrate 0 applic 05/17/25 20:00 06/10/25 07:50
Miconazole 2% (Same As Aloe [place]) Ointment Tube TOPICAL 06/14/25 19:59 1 applic
BID BITA Administration
Midodrine 2.5 mg 06/07/25 13:00 06/10/25 07:39
Midodrine 2.5 Mg Tablet PO 2.5 mg
TID@0800,1300,1800 BITA Administration
Pantoprazole Sodium 40 mg 06/03/25 20:00 06/10/25 07:39
Pantoprazole 40 Mg Delayed Release Tablet PO 07/01/25 19:59 40 mg
BID BITA Administration
Phenol 1 spray 05/06/25 19:10 05/29/25 12:11
Chloraseptic (1.4% Phenol) Throat [place] PO 06/29/25 19:09 1 spray
Q2HPRN PRN Administration
sore thorat
Polyethylene Glycol 17 grams 05/07/25 20:00 06/10/25 07:41
Polyethylene Glycol Powder 17 Grams Packet PO 06/29/25 19:59 Not Given
BID BITA
Prochlorperazine Edisylate 5 mg 05/20/25 11:11 06/05/25 08:25
Prochlorperazine 10 Mg/2 Ml Vial IV 06/17/25 11:10 5 mg
Q6HPRN PRN Administration
nausea
Quetiapine Fumarate 25 mg 06/08/25 17:28 06/10/25 02:56
Quetiapine 25 Mg Tablet PO 07/06/25 17:27 25 mg
QIDPRN PRN Administration
agitation
Saliva Substitute 0 spray 05/08/25 13:00 06/10/25 07:41
Saliva Substitute ([place]) Mouth [place] PO 06/29/25 12:59 Not Given
QID BITA
Sennosides 8.6 mg 05/07/25 20:00 06/10/25 07:42
Sennosides (Senokot) 8.6 Mg Tablet PO 06/29/25 19:59 Not Given
BID BITA
Sodium Chloride 0 flush 05/06/25 21:00 05/24/25 09:51
Sodium Chloride 0.9% (Flush) Syringe IV 06/29/25 20:59 3 flush
PER PROTOCOL BITA Administration
Tamsulosin HCl 0.4 mg 05/07/25 22:00 06/09/25 22:40
Tamsulosin 0.4 Mg Capsule PO 06/29/25 21:59 0.4 mg
HS BITA Administration
Thiamine HCl 100 mg 05/08/25 08:00 06/10/25 07:40
Thiamine 100 Mg Tablet PO 06/29/25 07:59 100 mg
DAILY BITA Administration
Home Medications
�Medication �Instructions �Recorded
Buproprion 50mg/5ml 10 ml feeding tube TID Depression 05/06/25
Finasteride 5mg/5ml 5 ml feeding tube DAILY Urinary 05/06/25
Issue
acetaminophen 160 mg/5 mL (5 mL) 640 mg feeding tube Q4HPRN PRN 05/06/25
oral solution mild pain
ascorbic acid (vitamin C) 250 mg 250 mg feeding tube DAILY 05/06/25
tablet (Vitamin C) Supplement
baclofen 10 mg/5 mL (2 mg/mL) oral 5 mg feeding tube TIDPRN PRN 05/06/25
solution hiccups
bisacodyl 10 mg rectal suppository 10 mg [place] DAILYPRN PRN constipation 05/06/25
(Dulcolax (bisacodyl))
calcium carbonate 1,000 mg PO Q8HPRN PRN heartburn 05/06/25
cefazolin 2 gram/20 mL in sterile 20 ml IV BID Infection 05/06/25
water intravenous syringe
folic acid 1 mg tablet 1 mg feeding tube DAILY Supplement 05/06/25
heparin (porcine) 5,000 unit/mL 5,000 unit SC BID Blood Clot 05/06/25
injection syringe Prevention/Tx
insulin aspart U-100 100 unit/mL 0 - 6 sliding scale dose SC BID 05/06/25
subcutaneous solution Diabetes
lansoprazole 15 mg delayed 15 mg feeding tube DAILY 05/06/25
release,disintegrating tablet Gastrointestinal Issue
lidocaine 5 % topical patch 2 patch topical DAILY Pain 05/06/25
lorazepam 0.5 mg tablet 0.5 mg PO TIDPRN PRN anixety 05/06/25
morphine 15 mg tablet,extended 15 mg PO Q12H Pain 05/06/25
release (MS Contin)
ondansetron HCl (PF) 4 mg/2 mL 4 mg IM TID nausea 05/06/25
injection solution
oxybutynin chloride 5 mg tablet 5 mg PO TIDPRN PRN colic pain from 05/06/25
stent
oxycodone 5 mg/5 mL oral solution 5 mg PO Q4HPRN PRN severe pains 05/06/25
oxycodone 5 mg/5 mL oral solution 10 mg feeding tube Q4HPRN PRN 05/06/25
severe pain
phenol 1.4 % mucosal aerosol spray 1 spray mucous membrane Q2HPRN PRN 05/06/25
sore throat
polyethylene glycol 3350 17 gram 17 g feeding tube BID Constipation 05/06/25
oral powder packet (Miralax)
prochlorperazine edisylate 10 mg/2 10 mg IM Q6HPRN PRN nausea 05/06/25
mL (5 mg/mL) injection solution
scopolamine base 1 mg over 3 days 1 patch transdermal Q3D nausea 05/06/25
transdermal patch
sennosides 8.8 mg/5 mL oral syrup 17.6 mg feeding tube BID 05/06/25
(senna) Constipation
sodium citrate-citric acid 500 30 ml feeding tube BID Supplement 05/06/25
mg-334 mg/5 mL oral solution
thiamine HCl (vitamin B1) 100 mg 100 mg feeding tube DAILY 05/06/25
tablet Supplement
zinc oxide 40 % topical ointment 1 applic topical DAILYPRN PRN 05/06/25
damage skin
zinc sulfate 50 mg zinc (220 mg) 50 mg feeding tube DAILY Supplement 05/06/25
capsule
[2025-06-10 10:49] VITALS: BP 126/94
[2025-06-10 11:31] LABS: Glucose - Point of Care 103 mg/dl (70-99)
--- NOTE | 2025-06-10 12:55 | PTCARENOTE ---
Pt continues to demonstrate auditory and visual hallucinations. Pt talking to self and yelling out 'Don't take it from me! What are you doing!?' while alone in room. Pt also repeatedly puts legs over the railings and tries to pull self to side,
which resulted in a fall earlier this shift. Pt continuously reminded to call for assistance and to not try and get out of bed. Pt states they are packing their things and 'getting out of here'. RN repeatedly attempts to re-orient to events pt
without success. Call button within reach, pt reminded to use call button. Continue with current plan of care.
--- NOTE | 2025-06-10 13:53 | W.PN.NEPH.PH ---
Today's Communication / Plan
-
HD tomorrow
Assessment/Plan
-
IMP:
POLA
Metastatic Renal Cell Carcinoma with Spinal Column Metastasis and subsequent Spinal Infection s/p Left L1 & B/L L2 Segmental Artery Embolization (03/30/25); T12-L2 laminectomy, Left L1/2 corpectomy, T11-L4 fusion (03/31/25); Thoracolumbar Wound
Washout with PRS closure (04/30/2025).
recent PET/CT on 02/27/2025 there is also high FDG activity/pulmonary nodule left upper lobe.
MSSA Bacteremia secondary to Spinal Infection
Status post left nephrectomy for RCC.
Acute urine retention
Obstructive uropathy with right JJ stent placed on 05/05/2025
Elevated anion gap metabolic acidosis.
Chronic normocytic anemia
Severe Protein Calorie Malnutrition
Anxiety / Depression
Hyperalbuminemia
Plan:
HD tomorrow (will be off schedule)
he remains non oliguric with lovett
hemodynamically stable on low dose midodrine
Consideration for feeding tube
follow fever w/u, cx neg
abx per ID
-
-
Date of Service: June 10, 2025
CC / HPI / ROS
-
Chief Complaint:
POLA
History of Present Illness:
POLA/Cr HD started for uremia
Hgb low 7.7
BP soft
tolerated HD sunday
Review of Systems:
no CP/SOB
nonoliguric with lovett
no fever
Labs
-
Labs:
WBC 3.0 10^3/uL (4.8-10.8) L 06/09/25 07:18
RBC 2.50 10^6/uL (4.70-6.10) L 06/09/25 07:18
Hgb 7.7 g/dL (13.0-18.0) L 06/09/25 07:18
Hct 25.0 % (39.0-52.0) L 06/09/25 07:18
Plt Count 185 10^3/uL (130-400) 06/09/25 07:18
Sodium 135 mmol/L (135-145) 06/09/25 07:18
Potassium 3.6 mmol/L (3.5-5.1) 06/09/25 07:18
Chloride 104 mmol/L (98-107) 06/09/25 07:18
Carbon Dioxide 27 mmol/L (22-30) 06/09/25 07:18
BUN 5 mg/dl (9-20) L 06/09/25 07:18
Creatinine 2.3 mg/dL (0.7-1.3) H 06/09/25 07:18
eGFR 33.54 06/09/25 07:18
Glucose 134 mg/dl (70-99) H 06/09/25 22:05
Calcium 8.7 mg/dl (8.4-10.2) 06/09/25 07:18
Phosphorus 3.9 mg/dl (2.5-4.5) 06/07/25 08:21
Pko-N-Tigutjvhxdx Pept Cancelled 05/27/25 12:44
Albumin 2.7 g/dl (3.5-5.0) L 06/07/25 08:21
Physical Exam
-
Vital Signs:
Vital Signs
Temp Pulse Resp BP Pulse Ox
97.9 F 79 14 126/94 92
06/10/25 10:49 06/10/25 10:49 06/10/25 10:49 06/10/25 10:49 06/10/25 10:49
Cardiovascular:: Regular rate and rhythm
Respiratory:: Bilateral: Coarse
Lung Excursion:: Normal
Abdomen:: Nontender and Soft
Bowel Sounds:: Normal
Extremity Edema:: None: Bilateral:
--- NOTE | 2025-06-10 14:21 | W.PN.ID1 ---
Addendum entered and electronically signed by Radha Whitaker MD 06/10/25 15:43:
I saw and evaluated the patient. I reviewed the resident�s note and agree with findings and plan as documented in the resident�s note.
Pt appears more lucid today.
Afebrile
# Metastatic renal cell carcicoma with mets(biopsy positive) to spine with cord compression s/p embolization 03/30
# Recent MSSA Lumbar spine abscess/discitis s/p T12-L2 lami and L L1/2 transpedicular approach for L1/2 corpectomy, T11-L4 fusion with instrumentation 03/31 at [facility]
Purulence noted in OR, epidural swab + MSSA
# Recent sustained MSSA bacteremia 04/01 - 04/04 at [facility]
# Lumbar wound dehiscence s/p washout, cx's negative, 04/30/25
- Completed cefazolin through 06/09/25 (close to 9 week total course, 6 weeks from lumbar wound dehiscence surgery).
- Start lifelong suppressive therapy with cephalexin 500mg qPM for spine hardware instrumentation placed in an infected field.
- Follow-up with [facility] ID.
# Recent obstructive uropathy s/p JJ stent -> ESRD now on HD
# Prolonged Encephalopathy.
-MRI brain: no mets.
- Neuro and Psych following
# Dysphagia and poor appetite.
-EGD unremarkable
- Improving po intake.
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
ID will sign off.
Discussed with Dr. Mihcel
Original Note:
Date of Service
Date of Service: June 10, 2025
Today's Communication
- Continue patient on keflex 500 mg every day, continue to follow
Assessment / Plan
# Metastatic renal cell carcicoma with mets(biopsy positive) to spine with cord compression s/p embolization 03/30
# Recent MSSA Lumbar spine abscess/discitis s/p T12-L2 lami and L L1/2 transpedicular approach for L1/2 corpectomy, T11-L4 fusion with instrumentation 03/31 at [facility]
Purulence noted in OR, epidural swab + MSSA
# Recent sustained MSSA bacteremia 04/01 - 04/04 at [facility]
# Lumbar wound dehiscence s/p washout, cx's negative, 04/30/25
# Recent obstructive uropathy s/p JJ stent -> ESRD now on HD
# Prolonged Encephalopathy. MRI brain: no mets.
# Dysphagia and poor appetite. EGD unremarkable
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
- Diagnosed At [facility] via wound culture following spinal canal embolization/ decompression. Was placed on Ancef with 06/09/2025 being last day ( completed course)
- Start indefinite oral antibiotic suppression with Keflex 500 mg every evening.
- continue wound care
- Patient is a candidate for hospice with terminal illness, but states he would like to continue treatments with oncologist at [facility] and is not interested in hospice/ palliative care when I talked to him today.
- continue to follow daily.
Chief Complaint
-: Other (MSSA infection)
Subjective / Review of Systems
Review of Systems: No Fever, No Chills, No Cough, No Sputum Production, No Palpitations, No Abdominal Pain, No Nausea, No Vomiting, No Diarrhea, No Joint Pain and No Skin Rash
Vital Signs / Physical Exam
Vital Signs
Vital Signs
Temp Pulse Resp BP Pulse Ox
97.9 F 79 14 126/94 92
06/10/25 10:49 06/10/25 10:49 06/10/25 10:49 06/10/25 10:49 06/10/25 10:49
Physical Exam
Constitutional: Chronically Ill and Cachetic
Head: Normocephalic
Cardiovascular: Regular Rate and S1/S2
Pulmonary: Clear and Symmetric
Gastrointestinal: Soft, Non Tender, Non Distended and Normal Bowel Sounds
Extremities: Negative Edema, Clubbing or Cyanosis
Skin: Warm and Dry
Neurological: AO x 3
Psychological: Calm
Objective Data
Lab Data
Lab Results
06/09/25 07:18
06/09/25 22:05
PT 16.3 Sec (11.4-14.6) H 06/07/25 08:21
INR 1.30 06/07/25 08:21
APTT 41.3 Sec (23.4-35.0) H 06/07/25 08:21
Estimated Creat Clear 28 ml/min 06/09/25 07:18
Total Bilirubin 0.4 mg/dl (0.2-1.3) 06/07/25 08:21
AST 17 U/L (17-59) 06/07/25 08:21
ALT < 10 U/L (0-50) 06/07/25 08:21
Alkaline Phosphatase 114 U/L (38-126) 06/07/25 08:21
Most recent labs reviewed.
Micro Results:
06/07/25 08:52 Blood Culture - Preliminary
Blood/Venous No Growth in 72 hours- Final report to follow
06/07/25 08:21 Blood Culture - Preliminary
Blood/Venous No Growth in 72 hours- Final report to follow
06/07/25 12:16 Urine Culture - Final
Urine NO GROWTH
05/07/25 00:31 MRSA Screen - Final
Nose No Methicillin Resistant Staphylococcus aureus isolated.
renal u/s on 05/08/25:
- IMPRESSION: Eldridge catheter is present within the bladder, with estimated bladder volume of 70 cc. No ureteral jets are demonstrated.
Status post left nephrectomy.
Right ureteral stent is visualized. Mild right pelvicalyceal dilation.
Echogenicity of the right kidney appears diffusely increased relative to the liver, a nonspecific finding suggesting medical renal disease.
Brain MRI on 05/14/25:
IMPRESSION:
1. No MRI evidence for intracranial metastatic disease.
2. 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
3. Low-lying cerebellar tonsils.
4. Moderate discogenic degenerative disease at C4/C5 and C5/C6 with small disc-osteophyte complexes causing mild spinal cord compression.
Head CT on 06/07/25:
- IMPRESSION:
1. No CT evidence for acute intracranial hemorrhage or transcortical infarct.
2. 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
3. Low-lying cerebellar tonsils.
Chest Xray on 06/07/25:
- IMPRESSION:
1. No radiographic evidence for pneumonia, acute pulmonary edema, or pleural effusion.
2. Mild elevation of the right hemidiaphragm.
3. Right IJ hemodialysis catheter in place.
4. Previous posterior lower thoracolumbar instrumentation.
--- NOTE | 2025-06-10 14:39 | W.PN.HOSP.TC ---
Today's Communication/Plan
-
Repeat MRI of the brain
Hemodialysis
Transition to oral antibiotic suppression
Continue lorazepam and Seroquel
Calorie count
Assessment / Plan
Assessment / Plan
Impression/plan
49yo M with PMHx of past medical history notable for metastatic RCC (s/p prior nephrectomy 12/2024) complicated by spinal mets and spinal infection (s/p prior washout ) with MSSA bacteremia, obstructive uropathy (s/p R JJ stent 04/2025),
previous uremia (s/p iHD), severe protein calorie malnutrition (s/p previous DHT) and ongoing nausea and odynophagia, CKD Initially presented on 03/27/25 to with worsening b/l LE weakness and found malignant soft tissue compressing spinal canal.
Had decompression and emolization done in [facility], then developed complication with spinal postOP wound infection with wound dehiscence and MSSA bacteremia s/p washout and woundVAc planned on [facility] till 06/10/25 and then chronic suppressive therapy.
Patient found hydronephrosis of his solitary R kidney and JJ stent placed. Developed worsening POLA finally requiring HD started on 05/18/25. Found elevated PR3, however with active infection and uncertain clinical value of this positive test - renal
biopsy and Rituxan therapy was declined by nephrology.
Patient with poor oral intake since developed feeling of dysphagia after recent surgery. Self-removed NG tube and declined PEG, planning to increase his oral intake to be able to improve calorie balance. GI called for nausea and odynophagia, so GI
did EGD on 05/25/25 without esophagitis, ulcerations or abnormalities, multiple gastric polyps seen, patchy erythema of duodenal bulb. GI advised empiric fluconazole for 14 days due to Hx of esophageal candidiasis. Plastic Sx consulted on 05/30/25
for postOP drain removal due to missed planned appt with current hospitalization. PT/OT recommended acute rehab, pending physiatry eval
ALso developed hallucinations both visual and acoustic on 06/05/25
MSSA Bacteremia secondary to Spinal Infection
- Completed course of cefazolin as of June 10 and transition to chronic antibiotic suppression with cephalexin.
- Will likely need chronic cefadroxil afterwards
- Follow-up schedule with ID at [facility]
-Wound VAC present on transfer to [facility] on 05/11
- Initially with bilateral paraspinal JEEVAN drain. One of the JEEVAN drain has been removed by plastic surgery. Continue wound care. Outpatient follow-up with surgery at [facility].
Metastatic Renal Cell Carcinoma
met to Spinal Column Metastasis
s/p Left L1 & B/L L2 Segmental Artery Embolization (03/30/25); T12-L2 laminectomy, Left L1/2 corpectomy, T11-L4 fusion (03/31/25); Thoracolumbar Wound Washout with PRS closure (04/30/2025).
In review of recent PET/CT on 02/27/2025 there is also high FDG activity/pulmonary nodule left upper lobe.
oncology signed off, rec 'OP follow up with [facility] oncologist recommended after discharge to discuss systemic therapy options base on resolution of infection, renal function, nutritional status, and performance status.'
MRI of the brain, ordered with persistent nausea and emesis and concern for central symptoms, negative for intracranial disease.
Acute kidney injury
Elevated anion gap metabolic acidosis.
Status post left nephrectomy for RCC.
Obstructive uropathy with right JJ stent placed on 05/05/[address]25
Eld[address] catheter in place.
Continue Flomax and Proscar
Appreciate nephrology input, dialysis started 05/18/25
Continue dialysis as per nephrology
Hypotensive initiated on midodrine 2.5 mg 3 times daily.
Chronic normocytic anemia
Iron studies indicative of mild iron deficiency and anemia of chronic disease. Per heme/onc, no role for supplementation
Erythropoietin level of 4, low end of normal range.
Follow hemoglobin, transfuse if Hgb<7
Concern for esophageal candidiasis
With persistent odynophagia will start empiric treatment with Diflucan.
Continue acid suppression increasing Protonix to 40 mg IV twice daily.
EGD 05/25 with no abnormalities.
Completed empiric course of nystatin and Diflucan for 14 days.
SVT�sinus tachycardia.
Had 1 vasovagal episode/presyncope on 05/20.
Initiated on low-dose of beta-blockers
Additional workup including:
ECG sinus tach
Monitor on telemetry
Pro CHF BNP mildly elevated at 790
Echocardiogram with preserved biventricular function and no evidence for RV strain
Lower extremity Dopplers negative
Hemoglobin has been stable
VQ scan low probability
Prolonged QTc
Stop Remeron and Zofran
Improved
Avoid QT prolonging medications
Protracted encephalopathy. Suspect multifactorial metabolic toxic encephalopathy
Initially mental status, appetite, nausea and emesis improved with initiation of hemodialysis (possibly related to uremia)
Currently with agitation and visual hallucinations.
Brain imaging including MRI with no evidence of intracranial disease
Additional ID workup with no evidence of new infection.
Psychiatry input appreciated with concern for hypnopompic hallucinations possibly related to situational stress, disruption of sleep cycle and prolonged hospitalization.
Neurology consultation
Noted improvement with addition of lorazepam and Seroquel
Repeat MRI pending
Normal cortisol level including stim test.
Blood culture from 06/07, urine cultures negative to date
Subclinical hypothyroidism.
TSH about 15.
T4/T3 marginal.
Initiated on levothyroxine 50 mcg daily on 06/07
Pain Management
-Patient previously on Morphine ER which was switched to Morphine IR when DHT was placed
-Patient had been refusing scheduled doses of narcotics
-Continue oxycodone PRN
Anxiety / Depression
-Continue bupropion
Deconditioning
-PM&R rec acute rehab once eating well or other nutrition plan in place
DVT proph: SC Heparin
Code Status: Full Code
Dispo - acute inpatient rehab
Anticipated Discharge: > 48 hours
Subjective/Interval History
-
Date of Service: June 10, 2025
Objective Data
-
Vital Signs:
Vital Signs
Temp Pulse Resp BP Pulse Ox
97.9 F 85 14 107/72 92
06/10/25 10:49 06/10/25 14:27 06/10/25 10:49 06/10/25 14:27 06/10/25 10:49
I&O
06/09/25 06/10/25 06/11/25
06:59 06:59 06:59
Intake Total 480 / 480 930 / 930
Output Total 450 / 450 450 / 450
Balance 30 / 30 480 / 480
Physical Exam
-
General: Well Developed and No Apparent Distress
HEENT: Normocephalic, Atraumatic and Moist Mucous Membranes
Respiratory: Clear to Auscultation
Cardiac: Regular Rhythm and S1/S2; Negative Murmur, Rub or Gallop
GI: Soft, Nontender, Nondistended and Normal Bowel Sounds; Negative Organomegaly
Rectal: Deferred by Provider
Genito-urinary: Eldridge
Musculoskeletal: No Clubbing, No Cyanosis and No Edema
Skin: Negative Rash
Neuro: Nonfocal/Grossly Intact and Other (Lethargic, waking up and answering simple questions.)
[2025-06-10 15:19] VITALS: BP 107/77
--- NOTE | 2025-06-10 16:20 | CM ---
CM continues to follow for discharge planning; Charli has been having auditory and visual hallucinations. PT notes report that he requires assist of 2, mod-max assist for sit-stand/stand-sit transfers, shaky, and unsteady; poor balance.
Goal is for transfer to ARF or SNF when medically stable.
[2025-06-10 17:05] LABS: Glucose - Point of Care 141 mg/dl (70-99)
--- NOTE | 2025-06-10 17:06 | W.PN.UPDATE ---
Update Note
Progress Note Update
patient seen chart reviewed. spoke with nursing. the patient fell this am attempting to get out of bed. nurses report there were some periods of agitation over the course of the day. when i saw him he was lying quietly in bed watching jeopardy. he
freely conversed with me. he was at the time cooperative and seemed engaged. he did tell me he hears and sees things. said he hears things and then his brain concocts an image to go along with what he hears. could this be a delirium related to
underlying medical illness? i asked him if he would consider antipsychotic medication but he was unwilling. two mg ativan is a large one time dose. nurses say it does not touch him in any case but would cut it back to one mg as is the prn as bzp's
can contribute to delirium. would cut the wellbutrin back to 100 mg as that could contribute to intermittent agitation . will follow
[2025-06-10] MEDS: KEFLEX 500 MG PO (17:20)
[2025-06-10 19:50] VITALS: BP 97/60
[2025-06-10] MEDS: LOPRESSOR PO (20:58)
[2025-06-10] MEDS: ATIVAN 1 MG PO (21:00)
[2025-06-10] MEDS: FLOMAX 0.4 MG PO (21:00)
[2025-06-10 21:29] LABS: Glucose - Point of Care 198 mg/dl (70-99)
[2025-06-10 23:45] VITALS: BP 115/76
[2025-06-11] VITALS (7 sets, daily range): BP systolic 96–112; BP diastolic 43–77; PULSE 84; O2SAT 98; BMI 17.2
[2025-06-11] MEDS: SYNTHROID 50 MCG PO (05:54)
[2025-06-11] MEDS: VITAMIN B1 PO (07:52)
[2025-06-11] MEDS: SENOKOT PO ×2 (07:52→20:03)
[2025-06-11] MEDS: VITAMIN C PO (07:52)
[2025-06-11] MEDS: WELLBUTRIN SR (12 hour sustained release) PO (07:52)
[2025-06-11] MEDS: OASIS PO ×4 (07:53→21:13)
[2025-06-11 08:09] LABS: Glucose - Point of Care 83 mg/dl (70-99)
[2025-06-11] MEDS: NOVOLOG FLEXPEN-LOW RESISTANCE SC ×3 (08:17→16:22)
[2025-06-11 08:24] LABS: Hematocrit 25.1 % (39.0-52.0); Hemoglobin 7.7 g/dL (13.0-18.0)
[2025-06-11] MEDS: RETACRIT 10000 UNITS IV (08:27)
[2025-06-11 08:53] LABS: Carbon Dioxide 27 mmol/L (22-30); Chloride 105 mmol/L (98-107); Potassium 3.2 mmol/L (3.5-5.1); Sodium 137 mmol/L (135-145)
[2025-06-11] MEDS: HEPARIN SC ×2 (10:09→20:02)
[2025-06-11] MEDS: DESENEX/MITRAZOL/ZEASORB 1 APPLIC TOPICAL ×2 (10:10→20:58)
[2025-06-11] MEDS: ANTIFUNGAL CLEAR 1 APPLIC TOPICAL ×2 (10:11→20:59)
[2025-06-11] MEDS: HEPARIN 4000 UNITS INTRACATH (10:48)
--- NOTE | 2025-06-11 11:59 | W.PN.NEPH.HD ---
Assessment
-
Pt seen on HD. no complaints. VSS, access ok
Progress Note - Hemodialysis
-
Date of Service: June 11, 2025
Duration: 3 hours
Potassium Bath: 3
Calcium Bath: 2.5
Opti-Dialyzer: 160
Ultrafiltration: Other (no)
Blood Flow: 400
Dialysate Flow: 600
Heparin: 0
EPO: [id number]
[2025-06-11] MEDS: PROSCAR 5 MG PO (12:02)
[2025-06-11] MEDS: PROTONIX 40 MG PO ×2 (12:02→20:48)
[2025-06-11 12:05] LABS: Glucose - Point of Care 127 mg/dl (70-99)
[2025-06-11] MEDS: LOPRESSOR 12.5 MG PO (12:11)
--- NOTE | 2025-06-11 14:01 | W.PN.UPDATE ---
Update Note
Progress Note Update
patient seen chart reviewed. attempted to see patient three times as all three he was on the phone and did not seem to want to get off. thie third time he put the phone down while leaving it engaged on the bed 'it's just my she can listen'.
the patient appeared s/w better today. he was more awake and alert. he did not complain at all of hallucinations . i discussed with him that i had stopped the seroquel as he has very prolonged qtc and this is not a good choice. will continue to
monitor and restart only if hallucinations recur and patient is agreeable. to me he has said he does not want to take antipsychotic medications in any case.
--- NOTE | 2025-06-11 14:57 | W.PN.HOSP.TC ---
Today's Communication/Plan
-
Hemodialysis
Supportive care
Calorie count
Assessment / Plan
Assessment / Plan
Impression/plan
49yo M with PMHx of past medical history notable for metastatic RCC (s/p prior nephrectomy 12/2024) complicated by spinal mets and spinal infection (s/p prior washout ) with MSSA bacteremia, obstructive uropathy (s/p R JJ stent 04/2025),
previous uremia (s/p iHD), severe protein calorie malnutrition (s/p previous DHT) and ongoing nausea and odynophagia, CKD Initially presented on 03/27/25 to with worsening b/l LE weakness and found malignant soft tissue compressing spinal canal.
Had decompression and emolization done in [facility], then developed complication with spinal postOP wound infection with wound dehiscence and MSSA bacteremia s/p washout and woundVAc planned on [facility] till 06/10/25 and then chronic suppressive therapy.
Patient found hydronephrosis of his solitary R kidney and JJ stent placed. Developed worsening POLA finally requiring HD started on 05/18/25. Found elevated PR3, however with active infection and uncertain clinical value of this positive test - renal
biopsy and Rituxan therapy was declined by nephrology.
Patient with poor oral intake since developed feeling of dysphagia after recent surgery. Self-removed NG tube and declined PEG, planning to increase his oral intake to be able to improve calorie balance. GI called for nausea and odynophagia, so GI
did EGD on 05/25/25 without esophagitis, ulcerations or abnormalities, multiple gastric polyps seen, patchy erythema of duodenal bulb. GI advised empiric fluconazole for 14 days due to Hx of esophageal candidiasis. Plastic Sx consulted on 05/30/25
for postOP drain removal due to missed planned appt with current hospitalization. PT/OT recommended acute rehab, pending physiatry eval
ALso developed hallucinations both visual and acoustic on 06/05/25
MSSA Bacteremia secondary to Spinal Infection
- Completed course of cefazolin as of June 10 and transition to chronic antibiotic suppression with cephalexin.
- Will likely need chronic cefadroxil afterwards
- Follow-up schedule with ID at [facility]
-Wound VAC present on transfer to [facility] on 05/11
- Initially with bilateral paraspinal JEEVAN drain. One of the JEEVAN drain has been removed by plastic surgery. Continue wound care. Outpatient follow-up with surgery at [facility].
Metastatic Renal Cell Carcinoma
met to Spinal Column Metastasis
s/p Left L1 & B/L L2 Segmental Artery Embolization (03/30/25); T12-L2 laminectomy, Left L1/2 corpectomy, T11-L4 fusion (03/31/25); Thoracolumbar Wound Washout with PRS closure (04/30/2025).
In review of recent PET/CT on 02/27/2025 there is also high FDG activity/pulmonary nodule left upper lobe.
oncology signed off, rec 'OP follow up with [facility] oncologist recommended after discharge to discuss systemic therapy options base on resolution of infection, renal function, nutritional status, and performance status.'
MRI of the brain, ordered with persistent nausea and emesis and concern for central symptoms, negative for intracranial disease.
Acute kidney injury
Elevated anion gap metabolic acidosis.
Status post left nephrectomy for RCC.
Obstructive uropathy with right JJ stent placed on 05/05/2025
Eldridge catheter in place.
Continue Flomax and Proscar
Appreciate nephrology input, dialysis started 05/18/25
Continue dialysis as per nephrology
Hypotensive initiated on midodrine 2.5 mg 3 times daily.
Chronic normocytic anemia
Iron studies indicative of mild iron deficiency and anemia of chronic disease. Per heme/onc, no role for supplementation
Erythropoietin level of 4, low end of normal range.
Follow hemoglobin, transfuse if Hgb<7
Concern for esophageal candidiasis
With persistent odynophagia will start empiric treatment with Diflucan.
Continue acid suppression increasing Protonix to 40 mg IV twice daily.
EGD 05/25 with no abnormalities.
Completed empiric course of nystatin and Diflucan for 14 days.
SVT�sinus tachycardia.
Had 1 vasovagal episode/presyncope on 05/20.
Initiated on low-dose of beta-blockers
Additional workup including:
ECG sinus tach
Monitor on telemetry
Pro CHF BNP mildly elevated at 790
Echocardiogram with preserved biventricular function and no evidence for RV strain
Lower extremity Dopplers negative
Hemoglobin has been stable
VQ scan low probability
Prolonged QTc
Stop Remeron and Zofran
Improved
Avoid QT prolonging medications
Protracted encephalopathy. Suspect multifactorial metabolic toxic encephalopathy
Initially mental status, appetite, nausea and emesis improved with initiation of hemodialysis (possibly related to uremia)
Currently with agitation and visual hallucinations.
Brain imaging including MRI with no evidence of intracranial disease
Additional ID workup with no evidence of new infection.
Psychiatry input appreciated with concern for hypnopompic hallucinations possibly related to situational stress, disruption of sleep cycle and prolonged hospitalization.
Repeat MRI on 06/10 with no acute intracranial abnormal
Normal cortisol level including stim test.
Blood culture from 06/07, urine cultures negative to date
Continue lorazepam increasing dose to avoid oversedation.
Seroquel discontinued
Subclinical hypothyroidism.
TSH about 15.
T4/T3 marginal.
Initiated on levothyroxine 50 mcg daily on 06/07
Pain Management
-Patient previously on Morphine ER which was switched to Morphine IR when DHT was placed
-Patient had been refusing scheduled doses of narcotics
-Continue oxycodone PRN
Anxiety / Depression
-Continue bupropion
Deconditioning
-PM&R rec acute rehab once eating well or other nutrition plan in place
DVT proph: SC Heparin
Code Status: Full Code
Dispo - acute inpatient rehab
Anticipated Discharge: > 48 hours
Subjective/Interval History
-
Date of Service: June 11, 2025
Objective Data
-
Labs:
Laboratory Results
06/11/25
08:13
Hgb 7.7 L
Hct 25.1 L
Sodium 137
Potassium 3.2 L
Chloride 105
Carbon Dioxide 27
Vital Signs:
Vital Signs
Temp Pulse Resp BP Pulse Ox
97.8 F 100 18 110/70 97
06/11/25 11:07 06/11/25 11:07 06/11/25 11:07 06/11/25 11:07 06/11/25 11:07
I&O
06/10/25 06/11/25 06/12/25
06:59 06:59 06:59
Intake Total 930 / 930 480 / 480
Output Total 450 / 450 850 / 850
Balance 480 / 480 -370 / -370
Physical Exam
-
General: Well Developed and No Apparent Distress
HEENT: Normocephalic, Atraumatic and Moist Mucous Membranes
Respiratory: Clear to Auscultation
Cardiac: Regular Rhythm and S1/S2; Negative Murmur, Rub or Gallop
GI: Soft, Nontender, Nondistended and Normal Bowel Sounds; Negative Organomegaly
Rectal: Deferred by Provider
Genito-urinary: Eldridge
Musculoskeletal: No Clubbing, No Cyanosis and No Edema
Skin: Negative Rash
Neuro: Nonfocal/Grossly Intact and Other (Lethargic, waking up and answering simple questions.)
[2025-06-11 16:19] LABS: Glucose - Point of Care 121 mg/dl (70-99)
[2025-06-11] MEDS: KEFLEX 500 MG PO (17:26)
--- NOTE | 2025-06-11 17:32 | PTCARENOTE ---
patient remains aaox3, denies pain, sat oob in chair for about 2 hours after working with therapy. appetite remains poor, tolerating hemodialysis today, vss, will continue to monitor.
[2025-06-11] MEDS: LOPRESSOR PO (20:49)
[2025-06-11] MEDS: FLOMAX 0.4 MG PO (21:12)
[2025-06-11] MEDS: ATIVAN 1 MG PO (21:12)
[2025-06-11 21:18] LABS: Glucose - Point of Care 76 mg/dl (70-99)
[2025-06-12 02:43] VITALS: BP 105/75
[2025-06-12 03:06] LABS: Glucose - Point of Care 84 mg/dl (70-99)
[2025-06-12 04:53] VITALS: BMI 16.4
[2025-06-12] MEDS: SYNTHROID 50 MCG PO (05:52)
[2025-06-12 07:28] VITALS: BP 107/76
[2025-06-12 07:38] LABS: Glucose - Point of Care 85 mg/dl (70-99)
[2025-06-12] MEDS: NOVOLOG FLEXPEN-LOW RESISTANCE SC ×2 (09:25→17:59)
[2025-06-12] MEDS: LOPRESSOR 12.5 MG PO ×2 (09:33→21:31)
[2025-06-12] MEDS: HEPARIN 5000 UNITS SC ×2 (09:34→21:32)
[2025-06-12] MEDS: WELLBUTRIN SR (12 hour sustained release) 100 MG PO (09:34)
[2025-06-12] MEDS: ANTIFUNGAL CLEAR 1 APPLIC TOPICAL ×2 (09:50→21:32)
[2025-06-12] MEDS: DESENEX/MITRAZOL/ZEASORB 1 APPLIC TOPICAL ×2 (09:59→21:32)
[2025-06-12] MEDS: PROTONIX PO (10:00)
[2025-06-12] MEDS: VITAMIN B1 PO (10:00)
[2025-06-12] MEDS: SENOKOT PO ×2 (10:00→21:34)
[2025-06-12] MEDS: OASIS PO ×4 (10:00→21:33)
[2025-06-12] MEDS: PROSCAR PO (10:00)
[2025-06-12] MEDS: VITAMIN C PO (10:01)
[2025-06-12 10:40] VITALS: BP 101/72
[2025-06-12 11:40] LABS: Glucose - Point of Care 180 mg/dl (70-99)
[2025-06-12 11:55] LABS: Hematocrit 27.1 % (39.0-52.0); Hemoglobin 8.5 g/dL (13.0-18.0); Mean Corp Hgb Conc. 31.4 g/dL (33.0-37.0); Mean Corpuscular Volume 100.7 fL (80.0-94.0); Nucleated Red Blood Cells % 0 % (-); Platelet Count 183 10^3/uL (130-400); Red Cell Dist. Width 15.5 % (11.5-14.5)
[2025-06-12] MEDS: NOVOLOG FLEXPEN-LOW RESISTANCE 1 UNITS SC (13:43)
[2025-06-12 15:10] VITALS: BP 113/69
--- NOTE | 2025-06-12 15:26 | W.PN.HOSP.TC ---
Today's Communication/Plan
-
Improved mental status over the last 24 to 48 hours
Reports improved appetite and better oral intake
Transition to oral antibiotics for maintenance
HD as per schedule
Supportive care over the weekend with hope for rehab discharge early next week
Assessment / Plan
Assessment / Plan
Impression/plan
49yo M with PMHx of past medical history notable for metastatic RCC (s/p prior nephrectomy 12/2024) complicated by spinal mets and spinal infection (s/p prior washout ) with MSSA bacteremia, obstructive uropathy (s/p R JJ stent 04/2025),
previous uremia (s/p iHD), severe protein calorie malnutrition (s/p previous DHT) and ongoing nausea and odynophagia, CKD Initially presented on 03/27/25 to with worsening b/l LE weakness and found malignant soft tissue compressing spinal canal.
Had decompression and emolization done in [facility], then developed complication with spinal postOP wound infection with wound dehiscence and MSSA bacteremia s/p washout and woundVAc planned on [facility] till 06/10/25 and then chronic suppressive therapy.
Patient found hydronephrosis of his solitary R kidney and JJ stent placed. Developed worsening POLA finally requiring HD started on 05/18/25. Found elevated PR3, however with active infection and uncertain clinical value of this positive test - renal
biopsy and Rituxan therapy was declined by nephrology.
Patient with poor oral intake since developed feeling of dysphagia after recent surgery. Self-removed NG tube and declined PEG, planning to increase his oral intake to be able to improve calorie balance. GI called for nausea and odynophagia, so GI
did EGD on 05/25/25 without esophagitis, ulcerations or abnormalities, multiple gastric polyps seen, patchy erythema of duodenal bulb. GI advised empiric fluconazole for 14 days due to Hx of esophageal candidiasis. Plastic Sx consulted on 05/30/25
for postOP drain removal due to missed planned appt with current hospitalization. PT/OT recommended acute rehab, pending physiatry eval
ALso developed hallucinations both visual and acoustic on 06/05/25
MSSA Bacteremia secondary to Spinal Infection
- Completed course of cefazolin as of June 10 and transition to chronic antibiotic suppression with cephalexin.
- Will likely need chronic cefadroxil afterwards
- Follow-up schedule with ID at [place]
-Wound VAC present on transfer to [facility] on 05/11
- Initially with bilateral paraspinal JEEVAN drain. One of the JEEVAN drain has been removed by plastic surgery. Continue wound care. Outpatient follow-up with surgery at [facility].
Metastatic Renal Cell Carcinoma
met to Spinal Column Metastasis
s/p Left L1 & B/L L2 Segmental Artery Embolization (03/30/25); T12-L2 laminectomy, Left L1/2 corpectomy, T11-L4 fusion (03/31/25); Thoracolumbar Wound Washout with PRS closure (04/30/2025).
In review of recent PET/CT on 02/27/2025 there is also high FDG activity/pulmonary nodule left upper lobe.
oncology signed off, rec 'OP follow up with [facility] oncologist recommended after discharge to discuss systemic therapy options base on resolution of infection, renal function, nutritional status, and performance status.'
MRI of the brain, ordered with persistent nausea and emesis and concern for central symptoms, negative for intracranial disease.
Acute kidney injury
Elevated anion gap metabolic acidosis.
Status post left nephrectomy for RCC.
Obstructive uropathy with right JJ stent placed on 05/05/2025
Eldridge catheter in place.
Continue Flomax and Proscar
Appreciate nephrology input, dialysis started 05/18/25
Continue dialysis as per nephrology
Hypotensive initiated on midodrine 2.5 mg 3 times daily.
Chronic normocytic anemia
Iron studies indicative of mild iron deficiency and anemia of chronic disease. Per heme/onc, no role for supplementation
Erythropoietin level of 4, low end of normal range.
Follow hemoglobin, transfuse if Hgb<7
Concern for esophageal candidiasis
With persistent odynophagia will start empiric treatment with Diflucan.
Continue acid suppression increasing Protonix to 40 mg IV twice daily.
EGD 05/25 with no abnormalities.
Completed empiric course of nystatin and Diflucan for 14 days.
SVT�sinus tachycardia.
Had 1 vasovagal episode/presyncope on 05/20.
Initiated on low-dose of beta-blockers
Additional workup including:
ECG sinus tach
Monitor on telemetry
Pro CHF BNP mildly elevated at 790
Echocardiogram with preserved biventricular function and no evidence for RV strain
Lower extremity Dopplers negative
Hemoglobin has been stable
VQ scan low probability
Prolonged QTc
Stop Remeron and Zofran
Improved
Avoid QT prolonging medications
Protracted encephalopathy. Suspect multifactorial metabolic toxic encephalopathy
Initially mental status, appetite, nausea and emesis improved with initiation of hemodialysis (possibly related to uremia)
Currently with agitation and visual hallucinations.
Brain imaging including MRI with no evidence of intracranial disease
Additional ID workup with no evidence of new infection.
Psychiatry input appreciated with concern for hypnopompic hallucinations possibly related to situational stress, disruption of sleep cycle and prolonged hospitalization.
Repeat MRI on 06/10 with no acute intracranial abnormal
Normal cortisol level including stim test.
Blood culture from 06/07, urine cultures negative to date
Continue lorazepam increasing dose to avoid oversedation.
Seroquel discontinued
Subclinical hypothyroidism.
TSH about 15.
T4/T3 marginal.
Initiated on levothyroxine 50 mcg daily on 06/07
Pain Management
-Patient previously on Morphine ER which was switched to Morphine IR when DHT was placed
-Patient had been refusing scheduled doses of narcotics
-Continue oxycodone PRN
Anxiety / Depression
-Continue bupropion
Deconditioning
-PM&R rec acute rehab once eating well or other nutrition plan in place
DVT proph: SC Heparin
Code Status: Full Code
Dispo - acute inpatient rehab
Anticipated Discharge: > 48 hours
Subjective/Interval History
-
Date of Service: June 12, 2025
Objective Data
-
Labs:
Laboratory Results
06/12/25
11:39
WBC 2.8 L
Hgb 8.5 L
Hct 27.1 L
Plt Count 183
Vital Signs:
Vital Signs
Temp Pulse Resp BP Pulse Ox
97.9 F 83 17 113/69 97
06/12/25 15:10 06/12/25 15:10 06/12/25 15:10 06/12/25 15:10 06/12/25 15:10
I&O
06/11/25 06/12/25 06/13/25
06:59 06:59 06:59
Intake Total 480 / 480 680 / 680
Output Total 850 / 850 730 / 730
Balance -370 / -370 -50 / -50
Physical Exam
-
General: Well Developed and No Apparent Distress
HEENT: Normocephalic, Atraumatic and Moist Mucous Membranes
Respiratory: Clear to Auscultation
Cardiac: Regular Rhythm and S1/S2; Negative Murmur, Rub or Gallop
GI: Soft, Nontender, Nondistended and Normal Bowel Sounds; Negative Organomegaly
Rectal: Deferred by Provider
Genito-urinary: Eldridge
Musculoskeletal: No Clubbing, No Cyanosis and No Edema
Skin: Negative Rash
Neuro: Nonfocal/Grossly Intact and Other (Lethargic, waking up and answering simple questions.)
--- NOTE | 2025-06-12 16:00 | W.PN.UPDATE ---
Update Note
Progress Note Update
pt seen for assessment. calmly lying in bed scrolling through phone. affect blunted. knows where he is and why he is here. hoping to go to [facility] because of need for dialysis. No complaints, no agitation noted by nursing staff.
[2025-06-12 16:39] LABS: Glucose - Point of Care 89 mg/dl (70-99)
--- NOTE | 2025-06-12 16:57 | W.PN.NEPH.PH ---
Today's Communication / Plan
-
HD tomorrow
Assessment/Plan
-
IMP:
POLA
Metastatic Renal Cell Carcinoma with Spinal Column Metastasis and subsequent Spinal Infection s/p Left L1 & B/L L2 Segmental Artery Embolization (03/30/25); T12-L2 laminectomy, Left L1/2 corpectomy, T11-L4 fusion (03/31/25); Thoracolumbar Wound
Washout with PRS closure (04/30/2025).
recent PET/CT on 02/27/2025 there is also high FDG activity/pulmonary nodule left upper lobe.
MSSA Bacteremia secondary to Spinal Infection
Status post left nephrectomy for RCC.
Acute urine retention
Obstructive uropathy with right JJ stent placed on 05/05/2025
Elevated anion gap metabolic acidosis.
Chronic normocytic anemia
Severe Protein Calorie Malnutrition
Anxiety / Depression
Hyperalbuminemia
Plan:
HD tomorrow (will be off schedule)
he remains non oliguric with lovett
hemodynamically stable on low dose midodrine
Consideration for feeding tube if po intake did not improve
AMS improved
on chr po suppressive abx per ID
rehab placement
-
-
Date of Service: June 12, 2025
CC / HPI / ROS
-
Chief Complaint:
POLA
History of Present Illness:
POLA/Cr HD started for uremia
Hgb better at 8.5
BP soft
tolerated HD yesterday
Review of Systems:
no CP/SOB
nonoliguric with lovett
no fever
has good appetite, eating well today
Labs
-
Labs:
WBC 2.8 10^3/uL (4.8-10.8) L 06/12/25 11:39
RBC 2.69 10^6/uL (4.70-6.10) L 06/12/25 11:39
Hgb 8.5 g/dL (13.0-18.0) L 06/12/25 11:39
Hct 27.1 % (39.0-52.0) L 06/12/25 11:39
Plt Count 183 10^3/uL (130-400) 06/12/25 11:39
Sodium 137 mmol/L (135-145) 06/11/25 08:13
Potassium 3.2 mmol/L (3.5-5.1) L 06/11/25 08:13
Chloride 105 mmol/L (98-107) 06/11/25 08:13
Carbon Dioxide 27 mmol/L (22-30) 06/11/25 08:13
BUN 5 mg/dl (9-20) L 06/09/25 07:18
Creatinine 2.3 mg/dL (0.7-1.3) H 06/09/25 07:18
eGFR 33.54 06/09/25 07:18
Glucose 134 mg/dl (70-99) H 06/09/25 22:05
Calcium 8.7 mg/dl (8.4-10.2) 06/09/25 07:18
Phosphorus 3.9 mg/dl (2.5-4.5) 06/07/25 08:21
Vxj-X-Ecunoihdqfu Pept Cancelled 05/27/25 12:44
Albumin 2.7 g/dl (3.5-5.0) L 06/07/25 08:21
Physical Exam
-
Vital Signs:
Vital Signs
Temp Pulse Resp BP Pulse Ox
97.9 F 83 17 113/69 97
06/12/25 15:10 06/12/25 15:10 06/12/25 15:10 06/12/25 15:10 06/12/25 15:10
Cardiovascular:: Regular rate and rhythm
Respiratory:: Bilateral: CTA (decreased BS)
Lung Excursion:: Normal
Abdomen:: Nontender and Soft
Bowel Sounds:: Normal
Extremity Edema:: None: Bilateral:
Lovett Catheter: Yes
--- NOTE | 2025-06-12 17:05 | CM ---
CM continues to follow for discharge planning. Improvement in mentation.
He is currently dependent with toileting and max assist with upper and lower extremity care. Min assist for bed mobility and sup-sit.
mod assist of 2 for sit to stand and bed to chair. No O2.
CM to continue to follow for all discharge planning needs. Acute Rehab vs. SNF pending medical course.
[2025-06-12] MEDS: KEFLEX 500 MG PO (17:59)
[2025-06-12 19:45] VITALS: BP 107/73
--- NOTE | 2025-06-12 21:30 | PTCARENOTE ---
Assumed care of patient from previous RN - patient attempted use of bedpan near change of shift with no results, passing flatus. Second attempt resulted with large soft/formed BM. Patient refused nighttime Senna and Mirilax, see SEP. Call meneses in
reach.
[2025-06-12] MEDS: PROTONIX 40 MG PO (21:32)
[2025-06-12] MEDS: FLOMAX 0.4 MG PO (21:32)
[2025-06-12] MEDS: ATIVAN 1 MG PO (21:32)
[2025-06-12 21:49] LABS: Glucose - Point of Care 143 mg/dl (70-99)
[2025-06-12 23:40] VITALS: BP 108/76
[2025-06-13 03:06] VITALS: BP 111/70
[2025-06-13 06:00] VITALS: BMI 16.7
[2025-06-13] MEDS: SYNTHROID 50 MCG PO (08:22)
[2025-06-13 08:40] LABS: Glucose - Point of Care 122 mg/dl (70-99)
[2025-06-13 09:47] VITALS: BP 109/69
[2025-06-13] MEDS: LOPRESSOR 12.5 MG PO ×2 (09:56→21:03)
[2025-06-13] MEDS: PROTONIX 40 MG PO ×2 (09:56→20:57)
[2025-06-13] MEDS: NOVOLOG FLEXPEN-LOW RESISTANCE SC ×3 (09:56→17:09)
[2025-06-13] MEDS: PROSCAR 5 MG PO (09:57)
[2025-06-13] MEDS: WELLBUTRIN SR (12 hour sustained release) 100 MG PO (09:57)
[2025-06-13] MEDS: HEPARIN 5000 UNITS SC ×2 (09:58→20:58)
[2025-06-13] MEDS: ANTIFUNGAL CLEAR 1 APPLIC TOPICAL ×2 (10:01→20:58)
[2025-06-13] MEDS: DESENEX/MITRAZOL/ZEASORB 1 APPLIC TOPICAL ×2 (10:01→20:58)
[2025-06-13] MEDS: VITAMIN C PO (10:26)
[2025-06-13] MEDS: SENOKOT PO ×2 (10:26→20:58)
[2025-06-13] MEDS: VITAMIN B1 PO (10:26)
[2025-06-13] MEDS: OASIS PO ×4 (10:26→20:59)
--- NOTE | 2025-06-13 11:04 | W.PN.HOSP.TC ---
Today's Communication/Plan
-
Assessment / Plan
Assessment / Plan
General: No Apparent Distress, Comfortable, cachectic, chronically ill-appearing
HEENT: NormoCephalic, Moist mucous membranes, Atraumatic
Respiratory: Equal chest rise, Non Labored Respirations
Cardiac: Regular rhythm, heart rate 80
GI: Soft, Non Distended
Musculoskeletal: No Edema, decreased muscle bulk throughout
: Eldridge draining clear yellow urine
Neuro: Awake, Alert, Nonfocal/grossly intact
Psych: Calm and Intact Judgment/Insight
Impression/plan
49yo M with PMHx of past medical history notable for metastatic RCC (s/p prior nephrectomy 12/2024) complicated by spinal mets and spinal infection (s/p prior washout ) with MSSA bacteremia, obstructive uropathy (s/p R JJ stent 04/2025),
previous uremia (s/p iHD), severe protein calorie malnutrition (s/p previous DHT) and ongoing nausea and odynophagia, CKD Initially presented on 03/27/25 to with worsening b/l LE weakness and found malignant soft tissue compressing spinal canal.
Had decompression and emolization done in [facility], then developed complication with spinal postOP wound infection with wound dehiscence and MSSA bacteremia s/p washout and woundVAc planned on [facility] till 06/10/25 and then chronic suppressive therapy.
Patient found hydronephrosis of his solitary R kidney and JJ stent placed. Developed worsening POLA finally requiring HD started on 05/18/25. Found elevated PR3, however with active infection and uncertain clinical value of this positive test - renal
biopsy and Rituxan therapy was declined by nephrology.
Patient with poor oral intake since developed feeling of dysphagia after recent surgery. Self-removed NG tube and declined PEG, planning to increase his oral intake to be able to improve calorie balance. GI called for nausea and odynophagia, so GI
did EGD on 05/25/25 without esophagitis, ulcerations or abnormalities, multiple gastric polyps seen, patchy erythema of duodenal bulb. GI advised empiric fluconazole for 14 days due to Hx of esophageal candidiasis. Plastic Sx consulted on 05/30/25
for postOP drain removal due to missed planned appt with current hospitalization. PT/OT recommended acute rehab, pending physiatry eval
ALso developed hallucinations both visual and acoustic on 06/05/25
MSSA Bacteremia secondary to Spinal Infection
- Completed course of cefazolin as of June 10 and transitioned to chronic antibiotic suppression with cephalexin.
- Will likely need chronic cefadroxil afterwards
- Follow-up schedule with ID at [place]
- Wound VAC present on transfer to , removed on 05/11
- Initially with bilateral paraspinal JEEVAN drain. One of the JEEVAN drain has been removed by plastic surgery. Continue wound care. Outpatient follow-up with surgery at [facility].
Metastatic Renal Cell Carcinoma
met to Spinal Column Metastasis
s/p Left L1 & B/L L2 Segmental Artery Embolization (03/30/25); T12-L2 laminectomy, Left L1/2 corpectomy, T11-L4 fusion (03/31/25); Thoracolumbar Wound Washout with PRS closure (04/30/2025).
In review of recent PET/CT on 02/27/2025 there is also high FDG activity/pulmonary nodule left upper lobe.
oncology signed off, rec 'OP follow up with [facility] oncologist recommended after discharge to discuss systemic therapy options base on resolution of infection, renal function, nutritional status, and performance status.'
MRI of the brain, ordered with persistent nausea and emesis and concern for central symptoms, negative for intracranial disease.
Acute kidney injury
Elevated anion gap metabolic acidosis.
Status post left nephrectomy for RCC.
Obstructive uropathy with right JJ stent placed on 05/05/2025
Eldridge catheter in place.
Continue Flomax and Proscar
Appreciate nephrology input, dialysis started 05/18/25
Continue dialysis as per nephrology
Hypotensive initiated on midodrine 2.5 mg 3 times daily.
Chronic normocytic anemia
Iron studies indicative of mild iron deficiency and anemia of chronic disease. Per heme/onc, no role for supplementation
Erythropoietin level of 4, low end of normal range.
Follow hemoglobin, transfuse if Hgb<7
Concern for esophageal candidiasis
With persistent odynophagia will start empiric treatment with Diflucan.
Continue acid suppression increasing Protonix to 40 mg IV twice daily.
EGD 05/25 with no abnormalities.
Completed empiric course of nystatin and Diflucan for 14 days.
SVT�sinus tachycardia.
Had 1 vasovagal episode/presyncope on 05/20.
Initiated on low-dose of beta-blockers
Additional workup including:
ECG sinus tach
Monitor on telemetry
Pro CHF BNP mildly elevated at 790
Echocardiogram with preserved biventricular function and no evidence for RV strain
Lower extremity Dopplers negative
Hemoglobin has been stable
VQ scan low probability
Prolonged QTc
Stop Remeron and Zofran
Improved
Avoid QT prolonging medications
Protracted encephalopathy. Suspect multifactorial metabolic toxic encephalopathy
Initially mental status, appetite, nausea and emesis improved with initiation of hemodialysis (possibly related to uremia)
Currently with agitation and visual hallucinations.
Brain imaging including MRI with no evidence of intracranial disease
Additional ID workup with no evidence of new infection.
Psychiatry input appreciated with concern for hypnopompic hallucinations possibly related to situational stress, disruption of sleep cycle and prolonged hospitalization.
Repeat MRI on 06/10 with no acute intracranial abnormal
Normal cortisol level including stim test.
Blood culture from 06/07, urine cultures negative to date
Continue lorazepam decreasing dose to avoid oversedation.
Seroquel discontinued, bupropion dose reduced to 100 mg daily
Encephalopathy appears to have resolved
Subclinical hypothyroidism.
TSH about 15.
T4/T3 marginal.
Initiated on levothyroxine 50 mcg daily on 06/07
Pain Management
-Patient previously on Morphine ER which was switched to Morphine IR when DHT was placed
-Patient had been refusing scheduled doses of narcotics
-Continue oxycodone PRN
Anxiety / Depression
-Continue bupropion
Deconditioning
-PM&R rec acute rehab once eating well or other nutrition plan in place
- Encourage increased p.o. intake and dietary supplementation, patient does not want PEG
DVT proph: SC Heparin
Code Status: Full Code
Dispo - acute inpatient rehab
Anticipated Discharge: > 48 hours
Subjective/Interval History
-
Date of Service: June 13, 2025
Patient was seen and examined at bedside this morning. No acute events overnight, no acute distress.
Objective Data
-
Labs:
Laboratory Results
06/13/25
09:18
Hgb Pending
Hct Pending
Sodium Pending
Potassium Pending
Chloride Pending
Carbon Dioxide Pending
Vital Signs:
Vital Signs
Temp Pulse Resp BP Pulse Ox
97.9 F 83 18 109/69 99
06/13/25 09:47 06/13/25 09:47 06/13/25 09:47 06/13/25 09:47 06/13/25 09:47
I&O
06/12/25 06/13/25 06/14/25
06:59 06:59 06:59
Intake Total 680 / 680 960 / 960
Output Total 730 / 730 1000 / 1000
Balance -50 / -50 -40 / -40
Review of Systems
-
History Source: Patient
All other systems: Reviewed and negative
Physical Exam
-
General: No Apparent Distress and Appears Chronically Ill
[2025-06-13 12:33] LABS: Glucose - Point of Care 91 mg/dl (70-99)
[2025-06-13 12:38] LABS: Hematocrit 26.0 % (39.0-52.0); Hemoglobin 8.0 g/dL (13.0-18.0)
[2025-06-13 12:54] VITALS: BP 103/74
[2025-06-13 13:04] LABS: Carbon Dioxide 28 mmol/L (22-30); Chloride 102 mmol/L (98-107); Potassium 3.8 mmol/L (3.5-5.1); Sodium 132 mmol/L (135-145)
[2025-06-13] MEDS: RETACRIT 8000 UNITS IV (13:17)
--- NOTE | 2025-06-13 15:28 | W.PN.NEPH.HD ---
Assessment
-
pt seen during HD
vitals stable on low dose midodrine
no UF
wt no change , reports appetite is comng back
CVC functions fine
Progress Note - Hemodialysis
-
Date of Service: June 13, 2025
Duration: 3 hours
Potassium Bath: 3
Calcium Bath: 2.5
Opti-Dialyzer: 160
Ultrafiltration: Other (0)
Blood Flow: 400
Dialysate Flow: 600
Heparin: no
EPO: 8000
[2025-06-13 16:38] VITALS: BP 105/71
[2025-06-13] MEDS: KEFLEX 500 MG PO (17:04)
[2025-06-13 17:08] LABS: Glucose - Point of Care 100 mg/dl (70-99)
[2025-06-13 19:00] VITALS: BP 101/71
[2025-06-13 20:42] LABS: Glucose - Point of Care 137 mg/dl (70-99)
[2025-06-13] MEDS: FLOMAX 0.4 MG PO (20:57)
[2025-06-13] MEDS: ATIVAN 1 MG PO (20:58)
[2025-06-13 23:00] VITALS: BP 95/66
[2025-06-14 03:00] VITALS: BP 109/70
[2025-06-14 06:00] VITALS: BMI 17.3
[2025-06-14] MEDS: SYNTHROID 50 MCG PO (06:07)
[2025-06-14 07:17] VITALS: BP 101/71
[2025-06-14 07:44] LABS: Glucose - Point of Care 368 mg/dl (70-99)
[2025-06-14] MEDS: LOPRESSOR 12.5 MG PO ×2 (08:12→22:10)
[2025-06-14] MEDS: PROSCAR 5 MG PO (08:12)
[2025-06-14] MEDS: PROTONIX 40 MG PO ×2 (08:12→20:59)
[2025-06-14] MEDS: HEPARIN 5000 UNITS SC ×2 (08:12→21:03)
[2025-06-14] MEDS: WELLBUTRIN SR (12 hour sustained release) 100 MG PO (08:12)
[2025-06-14] MEDS: NOVOLOG FLEXPEN-LOW RESISTANCE 5 UNITS SC (08:14)
[2025-06-14] MEDS: DESENEX/MITRAZOL/ZEASORB 1 APPLIC TOPICAL ×2 (08:19→21:00)
[2025-06-14] MEDS: ANTIFUNGAL CLEAR 1 APPLIC TOPICAL ×2 (08:19→21:00)
[2025-06-14] MEDS: SENOKOT PO ×2 (08:38→20:59)
[2025-06-14] MEDS: OASIS PO ×4 (08:38→21:05)
[2025-06-14] MEDS: VITAMIN B1 PO (08:38)
[2025-06-14] MEDS: VITAMIN C PO (08:39)
--- NOTE | 2025-06-14 10:21 | W.PN.HOSP.TC ---
Today's Communication/Plan
-
Assessment / Plan
Assessment / Plan
General: No Apparent Distress, Comfortable, cachectic, chronically ill-appearing
HEENT: NormoCephalic, Moist mucous membranes, Atraumatic
Respiratory: Equal chest rise, Non Labored Respirations
Cardiac: Regular rhythm, heart rate 80
GI: Soft, Non Distended
Musculoskeletal: No Edema, decreased muscle bulk throughout
: Eldridge draining clear yellow urine
Neuro: Awake, Alert, Nonfocal/grossly intact
Psych: Calm and Intact Judgment/Insight
Impression/plan
49yo M with PMHx of past medical history notable for metastatic RCC (s/p prior nephrectomy 12/2024) complicated by spinal mets and spinal infection (s/p prior washout ) with MSSA bacteremia, obstructive uropathy (s/p R JJ stent 04/2025),
previous uremia (s/p iHD), severe protein calorie malnutrition (s/p previous DHT) and ongoing nausea and odynophagia, CKD Initially presented on 03/27/25 to with worsening b/l LE weakness and found malignant soft tissue compressing spinal canal.
Had decompression and emolization done in [facility], then developed complication with spinal postOP wound infection with wound dehiscence and MSSA bacteremia s/p washout and woundVAc planned on An[facility] till 06/10/25 and then chronic suppressive therapy.
Patient found hydronephrosis of his solitary R kidney and JJ stent placed. Developed worsening POLA finally requiring HD started on 05/18/25. Found elevated PR3, however with active infection and uncertain clinical value of this positive test - renal
biopsy and Rituxan therapy was declined by nephrology.
Patient with poor oral intake since developed feeling of dysphagia after recent surgery. Self-removed NG tube and declined PEG, planning to increase his oral intake to be able to improve calorie balance. GI called for nausea and odynophagia, so GI
did EGD on 05/25/25 without esophagitis, ulcerations or abnormalities, multiple gastric polyps seen, patchy erythema of duodenal bulb. GI advised empiric fluconazole for 14 days due to Hx of esophageal candidiasis. Plastic Sx consulted on 05/30/25
for postOP drain removal due to missed planned appt with current hospitalization. PT/OT recommended acute rehab, pending physiatry eval
ALso developed hallucinations both visual and acoustic on 06/05/25
MSSA Bacteremia secondary to Spinal Infection
- Completed course of cefazolin as of June 10 and transitioned to chronic antibiotic suppression with cephalexin.
- Follow-up schedule with ID at [facility]
- Wound VAC present on transfer to , removed on 05/11
- Initially with bilateral paraspinal JEEVAN drain. One of the JEEVAN drain has been removed by plastic surgery. Continue wound care. Outpatient follow-up with surgery at [facility].
Metastatic Renal Cell Carcinoma
met to Spinal Column Metastasis
s/p Left L1 & B/L L2 Segmental Artery Embolization (03/30/25); T12-L2 laminectomy, Left L1/2 corpectomy, T11-L4 fusion (03/31/25); Thoracolumbar Wound Washout with PRS closure (04/30/2025).
In review of recent PET/CT on 02/27/2025 there is also high FDG activity/pulmonary nodule left upper lobe.
oncology signed off, rec 'OP follow up with [facility] oncologist recommended after discharge to discuss systemic therapy options base on resolution of infection, renal function, nutritional status, and performance status.'
MRI of the brain, ordered with persistent nausea and emesis and concern for central symptoms, negative for intracranial disease.
Acute kidney injury
Elevated anion gap metabolic acidosis.
Status post left nephrectomy for RCC.
Obstructive uropathy with right JJ stent placed on 05/05/2025
Eldridge catheter in place.
Continue Flomax and Proscar
Appreciate nephrology input, dialysis started 05/18/25
Continue dialysis as per nephrology
Hypotensive initiated on midodrine 2.5 mg 3 times daily.
Chronic normocytic anemia
Iron studies indicative of mild iron deficiency and anemia of chronic disease. Per heme/onc, no role for supplementation
Erythropoietin level of 4, low end of normal range.
Follow hemoglobin, transfuse if Hgb<7
Concern for esophageal candidiasis
With persistent odynophagia will start empiric treatment with Diflucan.
Continue acid suppression increasing Protonix to 40 mg IV twice daily.
EGD 05/25 with no abnormalities.
Completed empiric course of nystatin and Diflucan for 14 days.
SVT�sinus tachycardia.
Had 1 vasovagal episode/presyncope on 05/20.
Initiated on low-dose of beta-blockers
Additional workup including:
ECG sinus tach
Monitor on telemetry
Pro CHF BNP mildly elevated at 790
Echocardiogram with preserved biventricular function and no evidence for RV strain
Lower extremity Dopplers negative
Hemoglobin has been stable
VQ scan low probability
Prolonged QTc
Stop Remeron and Zofran
Improved
Avoid QT prolonging medications
Protracted encephalopathy. Suspect multifactorial metabolic toxic encephalopathy
Initially mental status, appetite, nausea and emesis improved with initiation of hemodialysis (possibly related to uremia)
Currently with agitation and visual hallucinations.
Brain imaging including MRI with no evidence of intracranial disease
Additional ID workup with no evidence of new infection.
Psychiatry input appreciated with concern for hypnopompic hallucinations possibly related to situational stress, disruption of sleep cycle and prolonged hospitalization.
Repeat MRI on 06/10 with no acute intracranial abnormal
Normal cortisol level including stim test.
Blood culture from 06/07, urine cultures negative to date
Continue lorazepam decreasing dose to avoid oversedation.
Seroquel discontinued, bupropion dose reduced to 100 mg daily
Encephalopathy appears to have resolved
Subclinical hypothyroidism.
TSH about 15.
T4/T3 marginal.
Initiated on levothyroxine 50 mcg daily on 06/07
Pain Management
-Patient previously on Morphine ER which was switched to Morphine IR when DHT was placed
-Patient had been refusing scheduled doses of narcotics
-Continue oxycodone PRN
Anxiety / Depression
-Continue bupropion
Deconditioning
-PM&R rec acute rehab once eating well or other nutrition plan in place
- Encourage increased p.o. intake and dietary supplementation, patient does not want PEG
DVT proph: SC Heparin
Code Status: Full Code
Dispo - acute inpatient rehab
Anticipated Discharge: 24 - 48 hours
Subjective/Interval History
-
Date of Service: June 14, 2025
Patient was seen and examined at bedside this morning. Comfortable, no acute events overnight. Awaiting SNF placement.
Objective Data
-
Vital Signs:
Vital Signs
Temp Pulse Resp BP Pulse Ox
97.3 F 82 18 101/71 100
06/14/25 07:17 06/14/25 07:17 06/14/25 07:17 06/14/25 07:17 06/14/25 07:17
I&O
06/13/25 06/14/25 06/15/25
06:59 06:59 06:59
Intake Total 960 / 960 150 / 150
Output Total 1000 / 1000 575 / 575
Balance -40 / -40 -425 / -425
Review of Systems
-
History Source: Patient
All other systems: Reviewed and negative
Physical Exam
-
General: No Apparent Distress and Appears Chronically Ill
[2025-06-14 11:50] VITALS: BP 95/68
[2025-06-14 12:18] LABS: Glucose - Point of Care 80 mg/dl (70-99)
--- NOTE | 2025-06-14 12:40 | W.PN.NEPH.PH ---
Today's Communication / Plan
-
HD on Sunday
Assessment/Plan
-
IMP:
POLA
Metastatic Renal Cell Carcinoma with Spinal Column Metastasis and subsequent Spinal Infection s/p Left L1 & B/L L2 Segmental Artery Embolization (03/30/25); T12-L2 laminectomy, Left L1/2 corpectomy, T11-L4 fusion (03/31/25); Thoracolumbar Wound
Washout with PRS closure (04/30/2025).
recent PET/CT on 02/27/2025 there is also high FDG activity/pulmonary nodule left upper lobe.
MSSA Bacteremia secondary to Spinal Infection
Status post left nephrectomy for RCC.
Acute urine retention
Obstructive uropathy with right JJ stent placed on 05/05/2025
Elevated anion gap metabolic acidosis.
Chronic normocytic anemia
Severe Protein Calorie Malnutrition
Anxiety / Depression
Hyperalbuminemia
Plan:
HD TTS this week too (will be off schedule)
he remains non oliguric with lovett
hemodynamically stable on low dose midodrine
follow calorie count
on chr po suppressive abx per ID
await rehab placement
-
-
Date of Service: June 14, 2025
CC / HPI / ROS
-
Chief Complaint:
POLA
History of Present Illness:
POLA/Cr HD started for uremia
Hgb was 8 on 06/13
BP soft
tolerated HD yesterday
Review of Systems:
no CP/SOB
nonoliguric with lovett
no fever
has good appetite, eating well today
Labs
-
Labs:
WBC 2.8 10^3/uL (4.8-10.8) L 06/12/25 11:39
RBC 2.69 10^6/uL (4.70-6.10) L 06/12/25 11:39
Hgb 8.0 g/dL (13.0-18.0) L 06/13/25 12:27
Hct 26.0 % (39.0-52.0) L 06/13/25 12:27
Plt Count 183 10^3/uL (130-400) 06/12/25 11:39
Sodium 132 mmol/L (135-145) L 06/13/25 12:27
Potassium 3.8 mmol/L (3.5-5.1) 06/13/25 12:27
Chloride 102 mmol/L (98-107) 06/13/25 12:27
Carbon Dioxide 28 mmol/L (22-30) 06/13/25 12:27
BUN 5 mg/dl (9-20) L 06/09/25 07:18
Creatinine 2.3 mg/dL (0.7-1.3) H 06/09/25 07:18
eGFR 33.54 06/09/25 07:18
Glucose 134 mg/dl (70-99) H 06/09/25 22:05
Calcium 8.7 mg/dl (8.4-10.2) 06/09/25 07:18
Phosphorus 3.9 mg/dl (2.5-4.5) 06/07/25 08:21
Ucz-Z-Uvbjuxmqwkw Pept Cancelled 05/27/25 12:44
Albumin 2.7 g/dl (3.5-5.0) L 06/07/25 08:21
Physical Exam
-
Vital Signs:
Vital Signs
Temp Pulse Resp BP Pulse Ox
97.3 F 82 18 101/71 100
06/14/25 07:17 06/14/25 07:17 06/14/25 07:17 06/14/25 07:17 06/14/25 07:17
Cardiovascular:: Regular rate and rhythm
Respiratory:: Bilateral: CTA (decreased BS)
Lung Excursion:: Normal
Abdomen:: Nontender and Soft
Bowel Sounds:: Normal
Extremity Edema:: None: Bilateral:
Lovett Catheter: Yes
[2025-06-14] MEDS: NOVOLOG FLEXPEN-LOW RESISTANCE SC ×2 (12:45→16:59)
[2025-06-14 15:35] VITALS: BP 107/74
[2025-06-14 16:49] LABS: Glucose - Point of Care 95 mg/dl (70-99)
[2025-06-14] MEDS: KEFLEX 500 MG PO (17:08)
[2025-06-14 19:00] VITALS: BP 103/74
[2025-06-14 21:06] LABS: Glucose - Point of Care 126 mg/dl (70-99)
[2025-06-14] MEDS: FLOMAX 0.4 MG PO (22:10)
[2025-06-14] MEDS: ATIVAN 1 MG PO (22:10)
[2025-06-14 23:00] VITALS: BP 104/70
[2025-06-15] VITALS (7 sets, daily range): BP systolic 91–109; BP diastolic 59–74; PULSE 79; O2SAT 100; BMI 16.6
--- NOTE | 2025-06-15 00:09 | PTCARENOTE ---
Pt. would like to brush teeth in the morning.
[2025-06-15] MEDS: SYNTHROID 50 MCG PO (06:08)
[2025-06-15 07:40] LABS: Glucose - Point of Care 88 mg/dl (70-99)
[2025-06-15] MEDS: NOVOLOG FLEXPEN-LOW RESISTANCE SC ×3 (08:00→17:54)
[2025-06-15] MEDS: PROSCAR 5 MG PO (08:01)
[2025-06-15] MEDS: HEPARIN 5000 UNITS SC ×2 (08:01→21:04)
[2025-06-15] MEDS: VITAMIN C 250 MG PO (08:01)
[2025-06-15] MEDS: LOPRESSOR 12.5 MG PO ×2 (08:01→21:05)
[2025-06-15] MEDS: SENOKOT 8.6 MG PO (08:01)
[2025-06-15] MEDS: PROTONIX 40 MG PO ×2 (08:01→21:04)
[2025-06-15] MEDS: OASIS PO ×4 (08:02→21:11)
[2025-06-15] MEDS: WELLBUTRIN SR (12 hour sustained release) 100 MG PO (08:02)
[2025-06-15] MEDS: VITAMIN B1 100 MG PO (08:02)
[2025-06-15] MEDS: ANTIFUNGAL CLEAR 1 APPLIC TOPICAL ×2 (08:05→21:08)
[2025-06-15] MEDS: DESENEX/MITRAZOL/ZEASORB 1 APPLIC TOPICAL ×2 (08:05→21:07)
--- NOTE | 2025-06-15 11:40 | W.PN.UPDATE ---
Update Note
Progress Note Update
patient seen chart reviewed. touched base with dr villa. the patient is well known to me. he seemed to me to be clearer sensorium james. he told me he is not at this point experiencing any hallucinations. he appeared in no distress and offered no
psych complaints. i reviewed with him the changes i had made in his psych meds primarily decreasing wellbutrin. at this point he is taking only wellbutrin sr 100 mg and ativan one mg q hs. would leave as is. psych will sign off. please let us
know if we can be of further assist.
[2025-06-15 11:43] LABS: Glucose - Point of Care 99 mg/dl (70-99)
--- NOTE | 2025-06-15 11:45 | W.PN.NEPH.PH ---
Today's Communication / Plan
-
Dialysis tomorrow orders provided
Escalate TIM dosage for anemia
Assessment/Plan
-
IMP:
POLA
Metastatic Renal Cell Carcinoma with Spinal Column Metastasis and subsequent Spinal Infection s/p Left L1 & B/L L2 Segmental Artery Embolization (03/30/25); T12-L2 laminectomy, Left L1/2 corpectomy, T11-L4 fusion (03/31/25); Thoracolumbar Wound
Washout with PRS closure (04/30/2025).
recent PET/CT on 02/27/2025 there is also high FDG activity/pulmonary nodule left upper lobe.
MSSA Bacteremia secondary to Spinal Infection
Status post left nephrectomy for RCC.
Acute urine retention
Obstructive uropathy with right JJ stent placed on 05/05/2025
Elevated anion gap metabolic acidosis.
Chronic normocytic anemia
Severe Protein Calorie Malnutrition
Anxiety / Depression
Hyperalbuminemia
Plan:
HD TTS this week too (will be off schedule)
Dialysis orders provided for tomorrow
he remains non oliguric with lovett
hemodynamically stable on low dose midodrine
follow calorie count
on chr po suppressive abx per ID
Anemia treated with TIM
await rehab placement
-
-
Date of Service: June 15, 2025
CC / HPI / ROS
-
Chief Complaint:
POLA
History of Present Illness:
POLA/Cr HD started for uremia
Hgb was 8 on 06/13
BP soft
Now on Sunday schedule for dialysis
Review of Systems:
no CP/SOB
nonoliguric with lovett
no fever
has good appetite, eating well today
Labs
-
Labs:
WBC 2.8 10^3/uL (4.8-10.8) L 06/12/25 11:39
RBC 2.69 10^6/uL (4.70-6.10) L 06/12/25 11:39
Hgb 8.0 g/dL (13.0-18.0) L 06/13/25 12:27
Hct 26.0 % (39.0-52.0) L 06/13/25 12:27
Plt Count 183 10^3/uL (130-400) 06/12/25 11:39
Sodium 132 mmol/L (135-145) L 06/13/25 12:27
Potassium 3.8 mmol/L (3.5-5.1) 06/13/25 12:27
Chloride 102 mmol/L (98-107) 06/13/25 12:27
Carbon Dioxide 28 mmol/L (22-30) 06/13/25 12:27
BUN 5 mg/dl (9-20) L 06/09/25 07:18
Creatinine 2.3 mg/dL (0.7-1.3) H 06/09/25 07:18
eGFR 33.54 06/09/25 07:18
Glucose 134 mg/dl (70-99) H 06/09/25 22:05
Calcium 8.7 mg/dl (8.4-10.2) 06/09/25 07:18
Phosphorus 3.9 mg/dl (2.5-4.5) 06/07/25 08:21
Lcj-D-Hsphlhvleql Pept Cancelled 05/27/25 12:44
Albumin 2.7 g/dl (3.5-5.0) L 06/07/25 08:21
Physical Exam
-
Vital Signs:
Vital Signs
Temp Pulse Resp BP Pulse Ox
97.9 F 84 18 91/59 100
06/15/25 11:20 06/15/25 11:20 06/15/25 11:20 06/15/25 11:20 06/15/25 11:20
Cardiovascular:: Regular rate and rhythm
Respiratory:: Bilateral: CTA (decreased BS)
Lung Excursion:: Normal
Abdomen:: Nontender and Soft
Bowel Sounds:: Normal
Extremity Edema:: None: Bilateral:
Lovett Catheter: Yes
--- NOTE | 2025-06-15 14:48 | W.PN.HOSP.TC ---
Today's Communication/Plan
-
Encephalopathy resolved
Monitor oral intake
Physical therapy
Hemodialysis
Placement to rehab
Assessment / Plan
Assessment / Plan
Impression/plan
49yo M with PMHx of past medical history notable for metastatic RCC (s/p prior nephrectomy 12/2024) complicated by spinal mets and spinal infection (s/p prior washout ) with MSSA bacteremia, obstructive uropathy (s/p R JJ stent 04/2025),
previous uremia (s/p iHD), severe protein calorie malnutrition (s/p previous DHT) and ongoing nausea and odynophagia, CKD Initially presented on 03/27/25 to with worsening b/l LE weakness and found malignant soft tissue compressing spinal canal.
Had decompression and emolization done in [facility], then developed complication with spinal postOP wound infection with wound dehiscence and MSSA bacteremia s/p washout and woundVAc planned on [facility] till 06/10/25 and then chronic suppressive therapy.
Patient found hydronephrosis of his solitary R kidney and JJ stent placed. Developed worsening POLA finally requiring HD started on 05/18/25. Found elevated PR3, however with active infection and uncertain clinical value of this positive test - renal
biopsy and Rituxan therapy was declined by nephrology.
Patient with poor oral intake since developed feeling of dysphagia after recent surgery. Self-removed NG tube and declined PEG, planning to increase his oral intake to be able to improve calorie balance. GI called for nausea and odynophagia, so GI
did EGD on 05/25/25 without esophagitis, ulcerations or abnormalities, multiple gastric polyps seen, patchy erythema of duodenal bulb. GI advised empiric fluconazole for 14 days due to Hx of esophageal candidiasis. Plastic Sx consulted on 05/30/25
for postOP drain removal due to missed planned appt with current hospitalization. PT/OT recommended acute rehab, pending physiatry eval
ALso developed hallucinations both visual and acoustic on 06/05/25
MSSA Bacteremia secondary to Spinal Infection
- Completed course of cefazolin as of June 10 and transitioned to chronic antibiotic suppression with cephalexin.
- Follow-up schedule with ID at [facility]
- Wound VAC present on transfer to , removed on 05/11
- Initially with bilateral paraspinal JEEVAN drain. One of the JEEVAN drain has been removed by plastic surgery. Continue wound care. Outpatient follow-up with surgery at [facility].
Metastatic Renal Cell Carcinoma
met to Spinal Column Metastasis
s/p Left L1 & B/L L2 Segmental Artery Embolization (03/30/25); T12-L2 laminectomy, Left L1/2 corpectomy, T11-L4 fusion (03/31/25); Thoracolumbar Wound Washout with PRS closure (04/30/2025).
In review of recent PET/CT on 02/27/2025 there is also high FDG activity/pulmonary nodule left upper lobe.
oncology signed off, rec 'OP follow up with [facility] oncologist recommended after discharge to discuss systemic therapy options base on resolution of infection, renal function, nutritional status, and performance status.'
MRI of the brain, ordered with persistent nausea and emesis and concern for central symptoms, negative for intracranial disease.
Acute kidney injury
Elevated anion gap metabolic acidosis.
Status post left nephrectomy for RCC.
Obstructive uropathy with right JJ stent placed on 05/05/2025
Eldridge catheter in place.
Continue Flomax and Proscar
Appreciate nephrology input, dialysis started 05/18/25
Continue dialysis as per nephrology
Hypotensive initiated on midodrine 2.5 mg 3 times daily.
Chronic normocytic anemia
Iron studies indicative of mild iron deficiency and anemia of chronic disease. Per heme/onc, no role for supplementation
Erythropoietin level of 4, low end of normal range.
Follow hemoglobin, transfuse if Hgb<7
Concern for esophageal candidiasis
With persistent odynophagia will start empiric treatment with Diflucan.
Continue acid suppression increasing Protonix to 40 mg IV twice daily.
EGD 05/25 with no abnormalities.
Completed empiric course of nystatin and Diflucan for 14 days.
SVT�sinus tachycardia.
Had 1 vasovagal episode/presyncope on 05/20.
Initiated on low-dose of beta-blockers
Additional workup including:
ECG sinus tach
Monitor on telemetry
Pro CHF BNP mildly elevated at 790
Echocardiogram with preserved biventricular function and no evidence for RV strain
Lower extremity Dopplers negative
Hemoglobin has been stable
VQ scan low probability
Prolonged QTc
Stop Remeron and Zofran
Improved
Avoid QT prolonging medications
Protracted encephalopathy. Suspect multifactorial metabolic toxic encephalopathy
Initially mental status, appetite, nausea and emesis improved with initiation of hemodialysis (possibly related to uremia)
Currently with agitation and visual hallucinations.
Brain imaging including MRI with no evidence of intracranial disease
Additional ID workup with no evidence of new infection.
Psychiatry input appreciated with concern for hypnopompic hallucinations possibly related to situational stress, disruption of sleep cycle and prolonged hospitalization.
Repeat MRI on 06/10 with no acute intracranial abnormal
Normal cortisol level including stim test.
Blood culture from 06/07, urine cultures negative to date
Continue lorazepam decreasing dose to avoid oversedation.
Seroquel discontinued, bupropion dose reduced to 100 mg daily
Encephalopathy appears to have resolved
Subclinical hypothyroidism.
TSH about 15.
T4/T3 marginal.
Initiated on levothyroxine 50 mcg daily on 06/07
Pain Management
-Patient previously on Morphine ER which was switched to Morphine IR when DHT was placed
-Patient had been refusing scheduled doses of narcotics
-Continue oxycodone PRN
Anxiety / Depression
-Continue bupropion
Deconditioning
-PM&R rec acute rehab once eating well or other nutrition plan in place
- Encourage increased p.o. intake and dietary supplementation, patient does not want PEG
DVT proph: SC Heparin
Code Status: Full Code
Dispo - acute inpatient rehab
Anticipated Discharge: 24 - 48 hours
Subjective/Interval History
-
Date of Service: June 15, 2025
Objective Data
-
Vital Signs:
Vital Signs
Temp Pulse Resp BP Pulse Ox
97.9 F 84 18 91/59 100
06/15/25 11:20 06/15/25 11:20 06/15/25 11:20 06/15/25 11:20 06/15/25 11:20
I&O
06/14/25 06/15/25 06/16/25
06:59 06:59 06:59
Intake Total 150 / 150 480 / 480
Output Total 575 / 575 910 / 910
Balance -425 / -425 -430 / -430
Physical Exam
-
General: No Apparent Distress and Appears Chronically Ill
--- NOTE | 2025-06-15 17:44 | CM ---
CM continues to follow for discharge planning. Charli is AAOx3, cooperative and participating in therapies. He is looking forward to going to [facility].
[facility] updated with most recent clinicals.
CM to follow up regarding bed availability in AM.
[2025-06-15 17:45] LABS: Glucose - Point of Care 107 mg/dl (70-99)
[2025-06-15] MEDS: KEFLEX 500 MG PO (17:55)
[2025-06-15] MEDS: SENOKOT PO (21:00)
[2025-06-15] MEDS: FLOMAX 0.4 MG PO (21:04)
[2025-06-15] MEDS: ATIVAN 1 MG PO (21:05)
[2025-06-15 21:44] LABS: Glucose - Point of Care 127 mg/dl (70-99)
[2025-06-16 06:00] VITALS: BMI 16.8
[2025-06-16] MEDS: SYNTHROID 50 MCG PO (06:22)
[2025-06-16 07:30] VITALS: BP 110/73
[2025-06-16] MEDS: OASIS PO ×4 (07:56→21:16)
[2025-06-16] MEDS: SENOKOT PO ×2 (07:57→20:16)
[2025-06-16] MEDS: HEPARIN 5000 UNITS SC ×2 (07:57→20:15)
[2025-06-16] MEDS: ANTIFUNGAL CLEAR 1 APPLIC TOPICAL ×2 (08:00→20:16)
[2025-06-16] MEDS: DESENEX/MITRAZOL/ZEASORB 1 APPLIC TOPICAL ×2 (08:00→20:16)
[2025-06-16 08:13] LABS: Glucose - Point of Care 80 mg/dl (70-99)
[2025-06-16] MEDS: NOVOLOG FLEXPEN-LOW RESISTANCE SC ×3 (08:28→17:02)
[2025-06-16 08:36] LABS: Hematocrit 25.7 % (39.0-52.0); Hemoglobin 8.2 g/dL (13.0-18.0)
[2025-06-16 09:47] LABS: Blood Urea Nitrogen 17 mg/dl (9-20); Calcium 7.4 mg/dl (8.4-10.2); Carbon Dioxide 18 mmol/L (22-30); Chloride 116 mmol/L (98-107); Estimated Creatinine Clearance 25 ml/min; Glucose 60 mg/dl (70-99); Potassium 3.1 mmol/L (3.5-5.1); Sodium 139 mmol/L (135-145); eGFR 28.95
--- NOTE | 2025-06-16 10:03 | W.PN.NEPH.HD ---
Assessment
-
Patient seen on dialysis
Systolic blood pressure stable UF even
Dialysis via catheter
Progress Note - Hemodialysis
-
Date of Service: June 16, 2025
Duration: 30 minutes and 3 hours
Potassium Bath: 3
Calcium Bath: 2.5
Opti-Dialyzer: 160
Ultrafiltration: Other (Even)
Blood Flow: 400
Dialysate Flow: 600
Heparin: None
EPO: 10,000
[2025-06-16] MEDS: RETACRIT 10000 UNITS IV (10:06)
[2025-06-16] MEDS: HEPARIN 3900 UNITS INTRACATH (11:13)
[2025-06-16 11:43] LABS: Glucose - Point of Care 129 mg/dl (70-99)
[2025-06-16] MEDS: PROTONIX 40 MG PO ×2 (11:54→20:12)
[2025-06-16] MEDS: PROSCAR 5 MG PO (11:57)
[2025-06-16] MEDS: VITAMIN B1 100 MG PO (11:57)
[2025-06-16] MEDS: WELLBUTRIN SR (12 hour sustained release) 100 MG PO (11:57)
[2025-06-16] MEDS: VITAMIN C 250 MG PO (11:57)
[2025-06-16] MEDS: LOPRESSOR 12.5 MG PO ×2 (11:57→20:12)
--- NOTE | 2025-06-16 15:22 | W.PN.HOSP.TC ---
Today's Communication/Plan
-
Supportive care
Reports improving oral intake
Hemodialysis
Pending placement to acute rehab
Assessment / Plan
Assessment / Plan
Impression/plan
49yo M with PMHx of past medical history notable for metastatic RCC (s/p prior nephrectomy 12/2024) complicated by spinal mets and spinal infection (s/p prior washout ) with MSSA bacteremia, obstructive uropathy (s/p R JJ stent 04/2025),
previous uremia (s/p iHD), severe protein calorie malnutrition (s/p previous DHT) and ongoing nausea and odynophagia, CKD Initially presented on 03/27/25 to with worsening b/l LE weakness and found malignant soft tissue compressing spinal canal.
Had decompression and emolization done in [facility], then developed complication with spinal postOP wound infection with wound dehiscence and MSSA bacteremia s/p washout and woundVAc planned on [facility] till 06/10/25 and then chronic suppressive therapy.
Patient found hydronephrosis of his solitary R kidney and JJ stent placed. Developed worsening POLA finally requiring HD started on 05/18/25. Found elevated PR3, however with active infection and uncertain clinical value of this positive test - renal
biopsy and Rituxan therapy was declined by nephrology.
Patient with poor oral intake since developed feeling of dysphagia after recent surgery. Self-removed NG tube and declined PEG, planning to increase his oral intake to be able to improve calorie balance. GI called for nausea and odynophagia, so GI
did EGD on 05/25/25 without esophagitis, ulcerations or abnormalities, multiple gastric polyps seen, patchy erythema of duodenal bulb. GI advised empiric fluconazole for 14 days due to Hx of esophageal candidiasis. Plastic Sx consulted on 05/30/25
for postOP drain removal due to missed planned appt with current hospitalization. PT/OT recommended acute rehab, pending physiatry eval
ALso developed hallucinations both visual and acoustic on 06/05/25
MSSA Bacteremia secondary to Spinal Infection
- Completed course of cefazolin as of June 10 and transitioned to chronic antibiotic suppression with cephalexin.
- Follow-up schedule with ID at [place]
- Wound VAC present on transfer to , removed on 05/11
- Initially with bilateral paraspinal JEEVAN drain. One of the JEEVAN drain has been removed by plastic surgery. Continue wound care. Outpatient follow-up with surgery at [facility].
Metastatic Renal Cell Carcinoma
met to Spinal Column Metastasis
s/p Left L1 & B/L L2 Segmental Artery Embolization (03/30/25); T12-L2 laminectomy, Left L1/2 corpectomy, T11-L4 fusion (03/31/25); Thoracolumbar Wound Washout with PRS closure (04/30/2025).
In review of recent PET/CT on 02/27/2025 there is also high FDG activity/pulmonary nodule left upper lobe.
oncology signed off, rec 'OP follow up with [facility] oncologist recommended after discharge to discuss systemic therapy options base on resolution of infection, renal function, nutritional status, and performance status.'
MRI of the brain, ordered with persistent nausea and emesis and concern for central symptoms, negative for intracranial disease.
Acute kidney injury
Elevated anion gap metabolic acidosis.
Status post left nephrectomy for RCC.
Obstructive uropathy with right JJ stent placed on 05/05/[address]25
Eldridge catheter in place.
Continue Flomax and Proscar
Appreciate nephrology input, dialysis started 05/18/25
Continue dialysis as per nephrology
Hypotensive initiated on midodrine 2.5 mg 3 times daily.
Chronic normocytic anemia
Iron studies indicative of mild iron deficiency and anemia of chronic disease. Per heme/onc, no role for supplementation
Erythropoietin level of 4, low end of normal range.
Follow hemoglobin, transfuse if Hgb<7
Concern for esophageal candidiasis
With persistent odynophagia will start empiric treatment with Diflucan.
Continue acid suppression increasing Protonix to 40 mg IV twice daily.
EGD 05/25 with no abnormalities.
Completed empiric course of nystatin and Diflucan for 14 days.
SVT�sinus tachycardia.
Had 1 vasovagal episode/presyncope on 05/20.
Initiated on low-dose of beta-blockers
Additional workup including:
ECG sinus tach
Monitor on telemetry
Pro CHF BNP mildly elevated at 790
Echocardiogram with preserved biventricular function and no evidence for RV strain
Lower extremity Dopplers negative
Hemoglobin has been stable
VQ scan low probability
Prolonged QTc
Stop Remeron and Zofran
Improved
Avoid QT prolonging medications
Protracted encephalopathy. Suspect multifactorial metabolic toxic encephalopathy
Initially mental status, appetite, nausea and emesis improved with initiation of hemodialysis (possibly related to uremia)
Currently with agitation and visual hallucinations.
Brain imaging including MRI with no evidence of intracranial disease
Additional ID workup with no evidence of new infection.
Psychiatry input appreciated with concern for hypnopompic hallucinations possibly related to situational stress, disruption of sleep cycle and prolonged hospitalization.
Repeat MRI on 06/10 with no acute intracranial abnormal
Normal cortisol level including stim test.
Blood culture from 06/07, urine cultures negative to date
Continue lorazepam decreasing dose to avoid oversedation.
Seroquel discontinued, bupropion dose reduced to 100 mg daily
Encephalopathy appears to have resolved
Subclinical hypothyroidism.
TSH about 15.
T4/T3 marginal.
Initiated on levothyroxine 50 mcg daily on 06/07
Pain Management
-Patient previously on Morphine ER which was switched to Morphine IR when DHT was placed
-Patient had been refusing scheduled doses of narcotics
-Continue oxycodone PRN
Anxiety / Depression
-Continue bupropion
Deconditioning
-PM&R rec acute rehab once eating well or other nutrition plan in place
- Encourage increased p.o. intake and dietary supplementation, patient does not want PEG
DVT proph: SC Heparin
Code Status: Full Code
Dispo - acute inpatient rehab
Anticipated Discharge: 24 - 48 hours
Subjective/Interval History
-
Date of Service: June 16, 2025
Objective Data
-
Labs:
Laboratory Results
06/16/25
08:31
Hgb 8.2 L
Hct 25.7 L
Sodium 139
Potassium 3.1 L
Chloride 116 H
Carbon Dioxide 18 L
BUN 17
Creatinine 2.6 H
Glucose 60 L
Calcium 7.4 L
Vital Signs:
Vital Signs
Temp Pulse Resp BP Pulse Ox
98.3 F 85 16 110/73 99
06/16/25 07:30 06/16/25 07:30 06/16/25 07:30 06/16/25 07:30 06/16/25 07:30
I&O
06/15/25 06/16/25 06/17/25
06:59 06:59 06:59
Intake Total 480 / 480 420 / 420
Output Total 920 / 920 565 / 565
Balance -440 / -440 -145 / -145
Physical Exam
-
General: Well Developed and No Apparent Distress
HEENT: Normocephalic, Atraumatic and Moist Mucous Membranes
Respiratory: Clear to Auscultation
Cardiac: Regular Rhythm and S1/S2; Negative Murmur, Rub or Gallop
GI: Soft, Nontender, Nondistended and Normal Bowel Sounds; Negative Organomegaly
Rectal: Deferred by Provider
Musculoskeletal: No Clubbing, No Cyanosis and No Edema
Skin: Negative Rash
Neuro: Nonfocal/Grossly Intact
--- NOTE | 2025-06-16 15:53 | PTCARENOTE ---
patient tolerated hemodialysis today, appetite/intake remains poor +BM on bed tse, no hallucinations or agitaiton, turns with assist x1, vss, will continue to monitor.
[2025-06-16 16:00] VITALS: BP 105/72
[2025-06-16 16:52] LABS: Glucose - Point of Care 102 mg/dl (70-99)
[2025-06-16] MEDS: KEFLEX 500 MG PO (17:28)
[2025-06-16] MEDS: FLOMAX 0.4 MG PO (21:19)
[2025-06-16] MEDS: ATIVAN 1 MG PO (21:19)
[2025-06-16 22:01] LABS: Glucose - Point of Care 106 mg/dl (70-99)
[2025-06-16 23:00] VITALS: BP 102/67
[2025-06-17] MEDS: SYNTHROID 50 MCG PO (05:28)
[2025-06-17 06:00] VITALS: BMI 16.8
[2025-06-17 08:00] VITALS: BP 110/72
[2025-06-17 08:46] LABS: Glucose - Point of Care 94 mg/dl (70-99)
[2025-06-17] MEDS: NOVOLOG FLEXPEN-LOW RESISTANCE SC ×3 (09:20→19:32)
[2025-06-17] MEDS: HEPARIN 5000 UNITS SC ×2 (09:48→21:26)
[2025-06-17] MEDS: LOPRESSOR 12.5 MG PO (09:48)
[2025-06-17] MEDS: PROSCAR 5 MG PO (09:49)
[2025-06-17] MEDS: PROTONIX 40 MG PO ×2 (09:49→21:27)
[2025-06-17] MEDS: WELLBUTRIN SR (12 hour sustained release) 100 MG PO (09:49)
[2025-06-17] MEDS: VITAMIN C PO (09:50)
[2025-06-17] MEDS: SENOKOT PO ×2 (09:50→21:28)
[2025-06-17] MEDS: OASIS PO ×4 (09:50→21:28)
[2025-06-17] MEDS: VITAMIN B1 PO (09:50)
[2025-06-17] MEDS: ANTIFUNGAL CLEAR 1 APPLIC TOPICAL ×2 (10:22→21:26)
[2025-06-17] MEDS: DESENEX/MITRAZOL/ZEASORB 1 APPLIC TOPICAL ×2 (10:23→21:26)
[2025-06-17 11:24] VITALS: BP 104/69; PULSE 81; O2SAT 100
[2025-06-17 12:00] VITALS: BP 104/69
[2025-06-17 12:06] LABS: Glucose - Point of Care 101 mg/dl (70-99)
--- NOTE | 2025-06-17 14:13 | W.PN.HOSP.TC ---
Today's Communication/Plan
-
Supportive care
HD
Placement
Assessment / Plan
Assessment / Plan
Impression/plan
49yo M with PMHx of past medical history notable for metastatic RCC (s/p prior nephrectomy 12/2024) complicated by spinal mets and spinal infection (s/p prior washout ) with MSSA bacteremia, obstructive uropathy (s/p R JJ stent 04/2025),
previous uremia (s/p iHD), severe protein calorie malnutrition (s/p previous DHT) and ongoing nausea and odynophagia, CKD Initially presented on 03/27/25 to with worsening b/l LE weakness and found malignant soft tissue compressing spinal canal.
Had decompression and emolization done in [facility], then developed complication with spinal postOP wound infection with wound dehiscence and MSSA bacteremia s/p washout and woundVAc planned on [facility] till 06/10/25 and then chronic suppressive therapy.
Patient found hydronephrosis of his solitary R kidney and JJ stent placed. Developed worsening POLA finally requiring HD started on 05/18/25. Found elevated PR3, however with active infection and uncertain clinical value of this positive test - renal
biopsy and Rituxan therapy was declined by nephrology.
Patient with poor oral intake since developed feeling of dysphagia after recent surgery. Self-removed NG tube and declined PEG, planning to increase his oral intake to be able to improve calorie balance. GI called for nausea and odynophagia, so GI
did EGD on 05/25/25 without esophagitis, ulcerations or abnormalities, multiple gastric polyps seen, patchy erythema of duodenal bulb. GI advised empiric fluconazole for 14 days due to Hx of esophageal candidiasis. Plastic Sx consulted on 05/30/25
for postOP drain removal due to missed planned appt with current hospitalization. PT/OT recommended acute rehab, pending physiatry eval
ALso developed hallucinations both visual and acoustic on 06/05/25
MSSA Bacteremia secondary to Spinal Infection
- Completed course of cefazolin as of June 10 and transitioned to chronic antibiotic suppression with cephalexin.
- Follow-up schedule with ID at [place]
- Wound VAC present on transfer to , removed on 05/11
- Initially with bilateral paraspinal JEEVAN drain. One of the JEEVAN drain has been removed by plastic surgery. Continue wound care. Outpatient follow-up with surgery at [facility].
Metastatic Renal Cell Carcinoma
met to Spinal Column Metastasis
s/p Left L1 & B/L L2 Segmental Artery Embolization (03/30/25); T12-L2 laminectomy, Left L1/2 corpectomy, T11-L4 fusion (03/31/25); Thoracolumbar Wound Washout with PRS closure (04/30/2025).
In review of recent PET/CT on 02/27/2025 there is also high FDG activity/pulmonary nodule left upper lobe.
oncology signed off, rec 'OP follow up with [facility] oncologist recommended after discharge to discuss systemic therapy options base on resolution of infection, renal function, nutritional status, and performance status.'
MRI of the brain, ordered with persistent nausea and emesis and concern for central symptoms, negative for intracranial disease.
Acute kidney injury
Elevated anion gap metabolic acidosis.
Status post left nephrectomy for RCC.
Obstructive uropathy with right JJ stent placed on 05/05/2025
Eldridge catheter in place.
Continue Flomax and Proscar
Appreciate nephrology input, dialysis started 05/18/25
Continue dialysis as per nephrology
Hypotensive initiated on midodrine 2.5 mg 3 times daily.
Chronic normocytic anemia
Iron studies indicative of mild iron deficiency and anemia of chronic disease. Per heme/onc, no role for supplementation
Erythropoietin level of 4, low end of normal range.
Follow hemoglobin, transfuse if Hgb<7
Concern for esophageal candidiasis
With persistent odynophagia will start empiric treatment with Diflucan.
Continue acid suppression increasing Protonix to 40 mg IV twice daily.
EGD 05/25 with no abnormalities.
Completed empiric course of nystatin and Diflucan for 14 days.
SVT�sinus tachycardia.
Had 1 vasovagal episode/presyncope on 05/20.
Initiated on low-dose of beta-blockers
Additional workup including:
ECG sinus tach
Monitor on telemetry
Pro CHF BNP mildly elevated at 790
Echocardiogram with preserved biventricular function and no evidence for RV strain
Lower extremity Dopplers negative
Hemoglobin has been stable
VQ scan low probability
Prolonged QTc
Stop Remeron and Zofran
Improved
Avoid QT prolonging medications
Protracted encephalopathy. Suspect multifactorial metabolic toxic encephalopathy
Initially mental status, appetite, nausea and emesis improved with initiation of hemodialysis (possibly related to uremia)
Currently with agitation and visual hallucinations.
Brain imaging including MRI with no evidence of intracranial disease
Additional ID workup with no evidence of new infection.
Psychiatry input appreciated with concern for hypnopompic hallucinations possibly related to situational stress, disruption of sleep cycle and prolonged hospitalization.
Repeat MRI on 06/10 with no acute intracranial abnormal
Normal cortisol level including stim test.
Blood culture from 06/07, urine cultures negative to date
Continue lorazepam decreasing dose to avoid oversedation.
Seroquel discontinued, bupropion dose reduced to 100 mg daily
Encephalopathy appears to have resolved
Subclinical hypothyroidism.
TSH about 15.
T4/T3 marginal.
Initiated on levothyroxine 50 mcg daily on 06/07
Pain Management
-Patient previously on Morphine ER which was switched to Morphine IR when DHT was placed
-Patient had been refusing scheduled doses of narcotics
-Continue oxycodone PRN
Anxiety / Depression
-Continue bupropion
Deconditioning
-PM&R rec acute rehab once eating well or other nutrition plan in place
- Encourage increased p.o. intake and dietary supplementation, patient does not want PEG
DVT proph: SC Heparin
Code Status: Full Code
Dispo - acute inpatient rehab
Anticipated Discharge: 24 - 48 hours
Subjective/Interval History
-
Date of Service: June 17, 2025
Objective Data
-
Vital Signs:
Vital Signs
Temp Pulse Resp BP Pulse Ox
97.9 F 81 18 104/69 100
06/17/25 12:00 06/17/25 12:00 06/17/25 12:00 06/17/25 12:00 06/17/25 12:00
I&O
06/16/25 06/17/25 06/18/25
06:59 06:59 06:59
Intake Total 420 / 420 720 / 720
Output Total 565 / 565 1010 / 1010
Balance -145 / -145 -290 / -290
Physical Exam
-
General: Well Developed and No Apparent Distress
HEENT: Normocephalic, Atraumatic and Moist Mucous Membranes
Respiratory: Clear to Auscultation
Cardiac: Regular Rhythm and S1/S2; Negative Murmur, Rub or Gallop
GI: Soft, Nontender, Nondistended and Normal Bowel Sounds; Negative Organomegaly
Rectal: Deferred by Provider
Musculoskeletal: No Clubbing, No Cyanosis and No Edema
Skin: Negative Rash
Neuro: Nonfocal/Grossly Intact
--- NOTE | 2025-06-17 14:26 | W.PN.NEPH.PH ---
Today's Communication / Plan
-
HD tomorrow
Assessment/Plan
-
IMP:
POLA
Metastatic Renal Cell Carcinoma with Spinal Column Metastasis and subsequent Spinal Infection s/p Left L1 & B/L L2 Segmental Artery Embolization (03/30/25); T12-L2 laminectomy, Left L1/2 corpectomy, T11-L4 fusion (03/31/25); Thoracolumbar Wound
Washout with PRS closure (04/30/2025).
recent PET/CT on 02/27/2025 there is also high FDG activity/pulmonary nodule left upper lobe.
MSSA Bacteremia secondary to Spinal Infection
Status post left nephrectomy for RCC.
Acute urine retention
Obstructive uropathy with right JJ stent placed on 05/05/2025
Elevated anion gap metabolic acidosis.
Chronic normocytic anemia
Severe Protein Calorie Malnutrition
Anxiety / Depression
Hyperalbuminemia
Plan:
HD TTS this week too (will be off schedule)
Dialysis tomorrow
he remains non oliguric with lovett
hemodynamically stable on low dose midodrine
on chr po suppressive abx per ID
Anemia treated with TIM
await rehab placement -[facility]
-
-
Date of Service: June 17, 2025
CC / HPI / ROS
-
Chief Complaint:
POLA
History of Present Illness:
POLA/Cr HD started for uremia
Hgb was 8.2 on 06/16
BP soft
Now on Sunday schedule for dialysis
Review of Systems:
no CP/SOB
nonoliguric with lovett
no fever
has good appetite, eating well
Labs
-
Labs:
WBC 2.8 10^3/uL (4.8-10.8) L 06/12/25 11:39
RBC 2.69 10^6/uL (4.70-6.10) L 06/12/25 11:39
Hgb 8.2 g/dL (13.0-18.0) L 06/16/25 08:31
Hct 25.7 % (39.0-52.0) L 06/16/25 08:31
Plt Count 183 10^3/uL (130-400) 06/12/25 11:39
Sodium 139 mmol/L (135-145) 06/16/25 08:31
Potassium 3.1 mmol/L (3.5-5.1) L 06/16/25 08:31
Chloride 116 mmol/L (98-107) H 06/16/25 08:31
Carbon Dioxide 18 mmol/L (22-30) L 06/16/25 08:31
BUN 17 mg/dl (9-20) 06/16/25 08:31
Creatinine 2.6 mg/dL (0.7-1.3) H 06/16/25 08:31
eGFR 28.95 06/16/25 08:31
Glucose 60 mg/dl (70-99) L 06/16/25 08:31
Calcium 7.4 mg/dl (8.4-10.2) L 06/16/25 08:31
Phosphorus 3.9 mg/dl (2.5-4.5) 06/07/25 08:21
Xst-C-Aadzfszwhkl Pept Cancelled 05/27/25 12:44
Albumin 2.7 g/dl (3.5-5.0) L 06/07/25 08:21
Physical Exam
-
Vital Signs:
Vital Signs
Temp Pulse Resp BP Pulse Ox
97.9 F 81 18 104/69 100
06/17/25 12:00 06/17/25 12:00 06/17/25 12:00 06/17/25 12:00 06/17/25 12:00
Cardiovascular:: Regular rate and rhythm
Respiratory:: Bilateral: CTA (decreased BS)
Lung Excursion:: Normal
Abdomen:: Nontender and Soft
Bowel Sounds:: Normal
Extremity Edema:: None: Bilateral:
Lovett Catheter: Yes
--- NOTE | 2025-06-17 15:03 | WOUNDNOTE ---
SACRAL COCCYX/BILATERAL BUTTOCKS
--- NOTE | 2025-06-17 15:58 | CM ---
TC from [facility] requesting a updated Hep B antigen. TT to
[2025-06-17 16:08] VITALS: BP 96/63
--- NOTE | 2025-06-17 16:31 | CM ---
Insurance authorization initiated thru [employer] for Acute Rehab at [place].
Clinicals uploaded to [employer].
Pended reference # [id number]
--- NOTE | 2025-06-17 17:59 | CM ---
Dialysis referral sent to [facility] to start outpatient dialysis once discharged from [facility] (pending insurance authorization for transfer to [place]).
[facility] has accepted patient with tentative start date of 07/04/2025 if discharged from [place]. If patient is not approved for admission to [facility], will discuss SNF options and update [facility] as needed.
[2025-06-17] MEDS: KEFLEX 500 MG PO (18:18)
[2025-06-17 18:41] LABS: Glucose - Point of Care 104 mg/dl (70-99)
[2025-06-17 21:01] LABS: Glucose - Point of Care 85 mg/dl (70-99)
[2025-06-17] MEDS: ATIVAN 1 MG PO (21:27)
[2025-06-17] MEDS: FLOMAX 0.4 MG PO (21:27)
[2025-06-17 21:38] VITALS: BP 101/64
[2025-06-17] MEDS: LOPRESSOR PO (21:44)
[2025-06-17 23:00] VITALS: BP 111/72
[2025-06-17 23:28] LABS: Glucose - Point of Care 77 mg/dl (70-99)
[2025-06-18] MEDS: SYNTHROID 50 MCG PO (05:55)
[2025-06-18 06:00] VITALS: BMI 16.9
[2025-06-18 07:58] VITALS: BP 106/70
[2025-06-18 08:06] LABS: Glucose - Point of Care 91 mg/dl (70-99)
[2025-06-18 08:43] LABS: Blood Urea Nitrogen 19 mg/dl (9-20); Calcium 8.8 mg/dl (8.4-10.2); Carbon Dioxide 28 mmol/L (22-30); Chloride 105 mmol/L (98-107); Estimated Creatinine Clearance 21 ml/min; Glucose 74 mg/dl (70-99); Potassium 4.1 mmol/L (3.5-5.1); Sodium 135 mmol/L (135-145); eGFR 23.44
[2025-06-18] MEDS: NOVOLOG FLEXPEN-LOW RESISTANCE SC ×3 (08:43→16:52)
[2025-06-18] MEDS: PROTONIX 40 MG PO ×2 (08:44→20:55)
[2025-06-18] MEDS: WELLBUTRIN SR (12 hour sustained release) 100 MG PO (08:44)
[2025-06-18] MEDS: PROSCAR 5 MG PO (08:44)
[2025-06-18] MEDS: HEPARIN 5000 UNITS SC ×2 (08:45→20:42)
[2025-06-18] MEDS: DESENEX/MITRAZOL/ZEASORB 1 APPLIC TOPICAL ×2 (08:46→20:42)
[2025-06-18] MEDS: ANTIFUNGAL CLEAR 1 APPLIC TOPICAL ×2 (08:46→20:42)
[2025-06-18] MEDS: LOPRESSOR PO ×2 (08:46→20:56)
[2025-06-18] MEDS: OASIS PO ×4 (08:47→21:56)
[2025-06-18] MEDS: SENOKOT PO ×2 (08:47→20:56)
[2025-06-18] MEDS: VITAMIN C PO (08:48)
[2025-06-18] MEDS: VITAMIN B1 PO (08:48)
[2025-06-18 08:49] LABS: Hematocrit 27.2 % (39.0-52.0); Hemoglobin 8.6 g/dL (13.0-18.0); Mean Corp Hgb Conc. 31.6 g/dL (33.0-37.0); Mean Corpuscular Volume 100.0 fL (80.0-94.0); Platelet Count 226 10^3/uL (130-400); Red Cell Dist. Width 14.6 % (11.5-14.5)
[2025-06-18] MEDS: RETACRIT 10000 UNITS IV (09:00)
--- NOTE | 2025-06-18 11:05 | W.PN.NEPH.HD ---
Assessment
-
pt seen during HD
vitals stable with midpdrine
no UF as he is non oliguric
CVC functions fine
d/c plan
Progress Note - Hemodialysis
-
Date of Service: June 18, 2025
Duration: 3 hours
Potassium Bath: 3
Calcium Bath: 2.5
Opti-Dialyzer: 160
Ultrafiltration: Other (0)
Blood Flow: 400
Dialysate Flow: 600
Heparin: no
EPO: [id number]
--- NOTE | 2025-06-18 11:30 | CM ---
Patient is cleared for discharge to [facility] [place]. Insurance authorization has been initiated, but still pending determination.
CM will coordinate transport to [facility] [facility] once insurance authorization has been obtained.
[facility] is awaiting updated Hepatitis panel. CM to fax results to [phone].
Mia can be contacted at [phone]
[2025-06-18 11:39] LABS: Glucose - Point of Care 94 mg/dl (70-99)
--- NOTE | 2025-06-18 14:03 | W.PN.HOSP.TC ---
Today's Communication/Plan
-
Supportive care
HD
Pending placement/authorization for acute rehab
Assessment / Plan
Assessment / Plan
Impression/plan
49yo M with PMHx of past medical history notable for metastatic RCC (s/p prior nephrectomy 12/2024) complicated by spinal mets and spinal infection (s/p prior washout ) with MSSA bacteremia, obstructive uropathy (s/p R JJ stent 04/2025),
previous uremia (s/p iHD), severe protein calorie malnutrition (s/p previous DHT) and ongoing nausea and odynophagia, CKD Initially presented on 03/27/25 to with worsening b/l LE weakness and found malignant soft tissue compressing spinal canal.
Had decompression and emolization done in [facility], then developed complication with spinal postOP wound infection with wound dehiscence and MSSA bacteremia s/p washout and woundVAc planned on [facility] till 06/10/25 and then chronic suppressive therapy.
Patient found hydronephrosis of his solitary R kidney and JJ stent placed. Developed worsening POLA finally requiring HD started on 05/18/25. Found elevated PR3, however with active infection and uncertain clinical value of this positive test - renal
biopsy and Rituxan therapy was declined by nephrology.
Patient with poor oral intake since developed feeling of dysphagia after recent surgery. Self-removed NG tube and declined PEG, planning to increase his oral intake to be able to improve calorie balance. GI called for nausea and odynophagia, so GI
did EGD on 05/25/25 without esophagitis, ulcerations or abnormalities, multiple gastric polyps seen, patchy erythema of duodenal bulb. GI advised empiric fluconazole for 14 days due to Hx of esophageal candidiasis. Plastic Sx consulted on 05/30/25
for postOP drain removal due to missed planned appt with current hospitalization. PT/OT recommended acute rehab, pending physiatry eval
ALso developed hallucinations both visual and acoustic on 06/05/25
MSSA Bacteremia secondary to Spinal Infection
- Completed course of cefazolin as of June 10 and transitioned to chronic antibiotic suppression with cephalexin.
- Follow-up schedule with ID at [place]
- Wound VAC present on transfer to , removed on 05/11
- Initially with bilateral paraspinal JEEVAN drain. One of the JEEVAN drain has been removed by plastic surgery. Continue wound care. Outpatient follow-up with surgery at [facility].
Metastatic Renal Cell Carcinoma
met to Spinal Column Metastasis
s/p Left L1 & B/L L2 Segmental Artery Embolization (03/30/25); T12-L2 laminectomy, Left L1/2 corpectomy, T11-L4 fusion (03/31/25); Thoracolumbar Wound Washout with PRS closure (04/30/2025).
In review of recent PET/CT on 02/27/2025 there is also high FDG activity/pulmonary nodule left upper lobe.
oncology signed off, rec 'OP follow up with [facility] oncologist recommended after discharge to discuss systemic therapy options base on resolution of infection, renal function, nutritional status, and performance status.'
MRI of the brain, ordered with persistent nausea and emesis and concern for central symptoms, negative for intracranial disease.
Acute kidney injury
Elevated anion gap metabolic acidosis.
Status post left nephrectomy for RCC.
Obstructive uropathy with right JJ stent placed on 05/05/2025
Eld[address] catheter in place.
Continue Flomax and Proscar
Appreciate nephrology input, dialysis started 05/18/25
Continue dialysis as per nephrology
Hypotensive initiated on midodrine 2.5 mg 3 times daily.
Chronic normocytic anemia
Iron studies indicative of mild iron deficiency and anemia of chronic disease. Per heme/onc, no role for supplementation
Erythropoietin level of 4, low end of normal range.
Follow hemoglobin, transfuse if Hgb<7
Concern for esophageal candidiasis
With persistent odynophagia will start empiric treatment with Diflucan.
Continue acid suppression increasing Protonix to 40 mg IV twice daily.
EGD 05/25 with no abnormalities.
Completed empiric course of nystatin and Diflucan for 14 days.
SVT�sinus tachycardia.
Had 1 vasovagal episode/presyncope on 05/20.
Initiated on low-dose of beta-blockers
Additional workup including:
ECG sinus tach
Monitor on telemetry
Pro CHF BNP mildly elevated at 790
Echocardiogram with preserved biventricular function and no evidence for RV strain
Lower extremity Dopplers negative
Hemoglobin has been stable
VQ scan low probability
Prolonged QTc
Stop Remeron and Zofran
Improved
Avoid QT prolonging medications
Protracted encephalopathy. Suspect multifactorial metabolic toxic encephalopathy
Initially mental status, appetite, nausea and emesis improved with initiation of hemodialysis (possibly related to uremia)
Currently with agitation and visual hallucinations.
Brain imaging including MRI with no evidence of intracranial disease
Additional ID workup with no evidence of new infection.
Psychiatry input appreciated with concern for hypnopompic hallucinations possibly related to situational stress, disruption of sleep cycle and prolonged hospitalization.
Repeat MRI on 06/10 with no acute intracranial abnormal
Normal cortisol level including stim test.
Blood culture from 06/07, urine cultures negative to date
Continue lorazepam decreasing dose to avoid oversedation.
Seroquel discontinued, bupropion dose reduced to 100 mg daily
Encephalopathy appears to have resolved
Subclinical hypothyroidism.
TSH about 15.
T4/T3 marginal.
Initiated on levothyroxine 50 mcg daily on 06/07
Pain Management
-Patient previously on Morphine ER which was switched to Morphine IR when DHT was placed
-Patient had been refusing scheduled doses of narcotics
-Continue oxycodone PRN
Anxiety / Depression
-Continue bupropion
Deconditioning
-PM&R rec acute rehab once eating well or other nutrition plan in place
- Encourage increased p.o. intake and dietary supplementation, patient does not want PEG
DVT proph: SC Heparin
Code Status: Full Code
Dispo - acute inpatient rehab
Anticipated Discharge: Within 24 hours
Subjective/Interval History
-
Date of Service: June 18, 2025
Objective Data
-
Labs:
Laboratory Results
06/18/25
08:19
WBC 3.4 L
Hgb 8.6 L
Hct 27.2 L
Plt Count 226 D
Sodium 135
Potassium 4.1 D
Chloride 105
Carbon Dioxide 28
BUN 19
Creatinine 3.1 H
Glucose 74
Calcium 8.8
Vital Signs:
Vital Signs
Temp Pulse Resp BP Pulse Ox
97.7 F 85 14 101/66 98
06/18/25 07:58 06/18/25 12:21 06/18/25 07:58 06/18/25 12:21 06/18/25 07:58
I&O
06/17/25 06/18/25 06/19/25
06:59 06:59 06:59
Intake Total 720 / 720 1340 / 1340
Output Total 1010 / 1010 840 / 840
Balance -290 / -290 500 / 500
Physical Exam
-
General: Well Developed and No Apparent Distress
HEENT: Normocephalic, Atraumatic and Moist Mucous Membranes
Respiratory: Clear to Auscultation
Cardiac: Regular Rhythm and S1/S2; Negative Murmur, Rub or Gallop
GI: Soft, Nontender, Nondistended and Normal Bowel Sounds; Negative Organomegaly
Rectal: Deferred by Provider
Musculoskeletal: No Clubbing, No Cyanosis and No Edema
Skin: Negative Rash
Neuro: Nonfocal/Grossly Intact
[2025-06-18 15:23] VITALS: BP 164/97
--- NOTE | 2025-06-18 16:27 | CM ---
Authorization for [facility] pending in [employer].
TC to [facility] to verify if patient had a Rehab benefit, left on hold indefinitely.
TC to Don[facility]Tabatha to see if they ran benefits, patient is current with [facility], but does not have a rehab benefit. His [employer] will be terminated as of 07/08/25. He is active with [facility] medicaid ID# [id number], (admissions checking
insurance) will try to contact in am to see if auth can be obtained thru them or if we need a blue cross denial first. Will continue to check [employer] for determination.
[2025-06-18 16:52] LABS: Glucose - Point of Care 82 mg/dl (70-99)
[2025-06-18] MEDS: KEFLEX 500 MG PO (17:03)
[2025-06-18 20:48] VITALS: BP 90/66
[2025-06-18 20:59] LABS: Hepatitis B Surface Antigen Negative (Negative)
[2025-06-18] MEDS: ATIVAN 1 MG PO (21:56)
[2025-06-18] MEDS: FLOMAX 0.4 MG PO (21:56)
[2025-06-18 22:08] LABS: Glucose - Point of Care 178 mg/dl (70-99)
[2025-06-18 23:00] VITALS: BP 101/70
[2025-06-19 06:00] VITALS: BMI 17.1
[2025-06-19] MEDS: SYNTHROID 50 MCG PO (06:15)
[2025-06-19 07:32] LABS: Glucose - Point of Care 81 mg/dl (70-99)
[2025-06-19 07:50] VITALS: BP 101/70
[2025-06-19] MEDS: NOVOLOG FLEXPEN-LOW RESISTANCE SC ×3 (08:50→16:53)
[2025-06-19] MEDS: ANTIFUNGAL CLEAR 1 APPLIC TOPICAL ×2 (08:56→20:44)
[2025-06-19] MEDS: DESENEX/MITRAZOL/ZEASORB 1 APPLIC TOPICAL ×2 (08:58→20:51)
[2025-06-19] MEDS: LOPRESSOR 12.5 MG PO ×2 (08:59→20:55)
[2025-06-19] MEDS: PROTONIX 40 MG PO ×2 (08:59→20:48)
[2025-06-19] MEDS: PROSCAR 5 MG PO (09:00)
[2025-06-19] MEDS: HEPARIN 5000 UNITS SC ×2 (09:00→20:46)
[2025-06-19] MEDS: VITAMIN B1 100 MG PO (09:00)
[2025-06-19] MEDS: SENOKOT PO ×2 (09:00→20:37)
[2025-06-19] MEDS: WELLBUTRIN SR (12 hour sustained release) 100 MG PO (09:00)
[2025-06-19] MEDS: VITAMIN C 250 MG PO (09:00)
[2025-06-19] MEDS: OASIS PO ×4 (09:01→21:04)
--- NOTE | 2025-06-19 10:32 | W.PN.NEPH.PH ---
Today's Communication / Plan
-
Dialysis tomorrow
Assessment/Plan
-
IMP:
POLA
Metastatic Renal Cell Carcinoma with Spinal Column Metastasis and subsequent Spinal Infection s/p Left L1 & B/L L2 Segmental Artery Embolization (03/30/25); T12-L2 laminectomy, Left L1/2 corpectomy, T11-L4 fusion (03/31/25); Thoracolumbar Wound
Washout with PRS closure (04/30/2025).
recent PET/CT on 02/27/2025 there is also high FDG activity/pulmonary nodule left upper lobe.
MSSA Bacteremia secondary to Spinal Infection
Status post left nephrectomy for RCC.
Acute urine retention
Obstructive uropathy with right JJ stent placed on 05/05/2025
Elevated anion gap metabolic acidosis.
Chronic normocytic anemia
Severe Protein Calorie Malnutrition
Anxiety / Depression
Hyperalbuminemia
Plan:
HD TTS this week too (will be off schedule)
Dialysis tomorrow
he remains non oliguric with lovett
hemodynamically stable on low dose midodrine
on chr po suppressive abx per ID
Anemia treated with TIM
await rehab placement -amanda Loz[facility]
-
-
Date of Service: June 19, 2025
CC / HPI / ROS
-
Chief Complaint:
POLA
History of Present Illness:
POLA/Cr HD started for uremia
Hgb was 8.2 on 06/16
BP soft
Now on Sunday schedule for dialysis
Review of Systems:
no CP/SOB
nonoliguric with lovett
no fever
has good appetite, eating well
Labs
-
Labs:
WBC 3.4 10^3/uL (4.8-10.8) L 06/18/25 08:19
RBC 2.72 10^6/uL (4.70-6.10) L 06/18/25 08:19
Hgb 8.6 g/dL (13.0-18.0) L 06/18/25 08:19
Hct 27.2 % (39.0-52.0) L 06/18/25 08:19
Plt Count 226 10^3/uL (130-400) D 06/18/25 08:19
Sodium 135 mmol/L (135-145) 06/18/25 08:19
Potassium 4.1 mmol/L (3.5-5.1) D 06/18/25 08:19
Chloride 105 mmol/L (98-107) 06/18/25 08:19
Carbon Dioxide 28 mmol/L (22-30) 06/18/25 08:19
BUN 19 mg/dl (9-20) 06/18/25 08:19
Creatinine 3.1 mg/dL (0.7-1.3) H 06/18/25 08:19
eGFR 23.44 06/18/25 08:19
Glucose 74 mg/dl (70-99) 06/18/25 08:19
Calcium 8.8 mg/dl (8.4-10.2) 06/18/25 08:19
Phosphorus 3.9 mg/dl (2.5-4.5) 06/07/25 08:21
Gzv-M-Gmbpgwnbjwv Pept Cancelled 05/27/25 12:44
Albumin 2.7 g/dl (3.5-5.0) L 06/07/25 08:21
Physical Exam
-
Vital Signs:
Vital Signs
Temp Pulse Resp BP Pulse Ox
98.6 F 81 14 101/70 100
06/19/25 07:50 06/19/25 07:50 06/19/25 07:50 06/19/25 07:50 06/19/25 07:50
Cardiovascular:: Regular rate and rhythm
Respiratory:: Bilateral: CTA (decreased BS)
Lung Excursion:: Normal
Abdomen:: Nontender and Soft
Bowel Sounds:: Normal
Extremity Edema:: None: Bilateral:
Lovett Catheter: Yes
[2025-06-19 10:58] LABS: Glucose - Point of Care 88 mg/dl (70-99)
--- NOTE | 2025-06-19 13:56 | W.PN.HOSP.TC ---
Today's Communication/Plan
-
Overall improved cognitive status and oral intake.
Tolerates physical therapy.
HD as per schedule.
Pending placement acute versus subacute rehab.
Assessment / Plan
Assessment / Plan
Impression/plan
49yo M with PMHx of past medical history notable for metastatic RCC (s/p prior nephrectomy 12/2024) complicated by spinal mets and spinal infection (s/p prior washout ) with MSSA bacteremia, obstructive uropathy (s/p R JJ stent 04/2025),
previous uremia (s/p iHD), severe protein calorie malnutrition (s/p previous DHT) and ongoing nausea and odynophagia, CKD Initially presented on 03/27/25 to with worsening b/l LE weakness and found malignant soft tissue compressing spinal canal.
Had decompression and emolization done in [facility], then developed complication with spinal postOP wound infection with wound dehiscence and MSSA bacteremia s/p washout and woundVAc planned on [facility] till 06/10/25 and then chronic suppressive therapy.
Patient found hydronephrosis of his solitary R kidney and JJ stent placed. Developed worsening POLA finally requiring HD started on 05/18/25. Found elevated PR3, however with active infection and uncertain clinical value of this positive test - renal
biopsy and Rituxan therapy was declined by nephrology.
Patient with poor oral intake since developed feeling of dysphagia after recent surgery. Self-removed NG tube and declined PEG, planning to increase his oral intake to be able to improve calorie balance. GI called for nausea and odynophagia, so GI
did EGD on 05/25/25 without esophagitis, ulcerations or abnormalities, multiple gastric polyps seen, patchy erythema of duodenal bulb. GI advised empiric fluconazole for 14 days due to Hx of esophageal candidiasis. Plastic Sx consulted on 05/30/25
for postOP drain removal due to missed planned appt with current hospitalization. PT/OT recommended acute rehab, pending physiatry eval
ALso developed hallucinations both visual and acoustic on 06/05/25
MSSA Bacteremia secondary to Spinal Infection
- Completed course of cefazolin as of June 10 and transitioned to chronic antibiotic suppression with cephalexin.
- Follow-up schedule with ID at [facility]
- Wound VAC present on transfer to , removed on 05/11
- Initially with bilateral paraspinal JEEVAN drain. One of the JEEVAN drain has been removed by plastic surgery. Continue wound care. Outpatient follow-up with surgery at [facility].
Metastatic Renal Cell Carcinoma
met to Spinal Column Metastasis
s/p Left L1 & B/L L2 Segmental Artery Embolization (03/30/25); T12-L2 laminectomy, Left L1/2 corpectomy, T11-L4 fusion (03/31/25); Thoracolumbar Wound Washout with PRS closure (04/30/2025).
In review of recent PET/CT on 02/27/2025 there is also high FDG activity/pulmonary nodule left upper lobe.
oncology signed off, rec 'OP follow up with [facility] oncologist recommended after discharge to discuss systemic therapy options base on resolution of infection, renal function, nutritional status, and performance status.'
MRI of the brain, ordered with persistent nausea and emesis and concern for central symptoms, negative for intracranial disease.
Acute kidney injury
Elevated anion gap metabolic acidosis.
Status post left nephrectomy for RCC.
Obstructive uropathy with right JJ stent placed on 05/05/2025
Eldridge catheter in place.
Continue Flomax and Proscar
Appreciate nephrology input, dialysis started 05/18/25
Continue dialysis as per nephrology
Hypotensive initiated on midodrine 2.5 mg 3 times daily.
Chronic normocytic anemia
Iron studies indicative of mild iron deficiency and anemia of chronic disease. Per heme/onc, no role for supplementation
Erythropoietin level of 4, low end of normal range.
Follow hemoglobin, transfuse if Hgb<7
Concern for esophageal candidiasis
With persistent odynophagia will start empiric treatment with Diflucan.
Continue acid suppression increasing Protonix to 40 mg IV twice daily.
EGD 05/25 with no abnormalities.
Completed empiric course of nystatin and Diflucan for 14 days.
SVT�sinus tachycardia.
Had 1 vasovagal episode/presyncope on 05/20.
Initiated on low-dose of beta-blockers
Additional workup including:
ECG sinus tach
Monitor on telemetry
Pro CHF BNP mildly elevated at 790
Echocardiogram with preserved biventricular function and no evidence for RV strain
Lower extremity Dopplers negative
Hemoglobin has been stable
VQ scan low probability
Prolonged QTc
Stop Remeron and Zofran
Improved
Avoid QT prolonging medications
Protracted encephalopathy. Suspect multifactorial metabolic toxic encephalopathy
Initially mental status, appetite, nausea and emesis improved with initiation of hemodialysis (possibly related to uremia)
Currently with agitation and visual hallucinations.
Brain imaging including MRI with no evidence of intracranial disease
Additional ID workup with no evidence of new infection.
Psychiatry input appreciated with concern for hypnopompic hallucinations possibly related to situational stress, disruption of sleep cycle and prolonged hospitalization.
Repeat MRI on 06/10 with no acute intracranial abnormal
Normal cortisol level including stim test.
Blood culture from 06/07, urine cultures negative to date
Continue lorazepam decreasing dose to avoid oversedation.
Seroquel discontinued, bupropion dose reduced to 100 mg daily
Encephalopathy appears to have resolved
Subclinical hypothyroidism.
TSH about 15.
T4/T3 marginal.
Initiated on levothyroxine 50 mcg daily on 06/07
Pain Management
-Patient previously on Morphine ER which was switched to Morphine IR when DHT was placed
-Patient had been refusing scheduled doses of narcotics
-Continue oxycodone PRN
Anxiety / Depression
-Continue bupropion
Deconditioning
-PM&R rec acute rehab once eating well or other nutrition plan in place
- Encourage increased p.o. intake and dietary supplementation, patient does not want PEG
DVT proph: SC Heparin
Code Status: Full Code
Dispo - acute inpatient rehab
Anticipated Discharge: 24 - 48 hours
Subjective/Interval History
-
Date of Service: June 19, 2025
Objective Data
-
Vital Signs:
Vital Signs
Temp Pulse Resp BP Pulse Ox
98.6 F 81 14 101/70 99
06/19/25 07:50 06/19/25 07:50 06/19/25 07:50 06/19/25 07:50 06/19/25 08:30
I&O
06/18/25 06/19/25 06/20/25
06:59 06:59 06:59
Intake Total 1340 / 1340 420 / 420
Output Total 840 / 840 1045 / 1045
Balance 500 / 500 -625 / -625
Physical Exam
-
General: Well Developed and No Apparent Distress
HEENT: Normocephalic, Atraumatic and Moist Mucous Membranes
Respiratory: Clear to Auscultation
Cardiac: Regular Rhythm and S1/S2; Negative Murmur, Rub or Gallop
GI: Soft, Nontender, Nondistended and Normal Bowel Sounds; Negative Organomegaly
Rectal: Deferred by Provider
Musculoskeletal: No Clubbing, No Cyanosis and No Edema
Skin: Negative Rash
Neuro: Nonfocal/Grossly Intact
[2025-06-19 15:46] VITALS: BP 109/69
--- NOTE | 2025-06-19 16:16 | CM ---
CM following for discharge plans to Acute Rehab. I spoke with Tabatha in admissions earlier today and she advised that there are no beds at [facility] until Sunday.
Plan: CM to follow up with Tabatha on Sunday regarding bed availability for transfer to [facility].
[2025-06-19 16:39] LABS: Glucose - Point of Care 122 mg/dl (70-99)
[2025-06-19] MEDS: KEFLEX 500 MG PO (17:21)
[2025-06-19] MEDS: ATIVAN 1 MG PO (21:03)
[2025-06-19] MEDS: FLOMAX 0.4 MG PO (21:04)
[2025-06-19 21:19] LABS: Glucose - Point of Care 117 mg/dl (70-99)
[2025-06-19 23:00] VITALS: BP 101/69
[2025-06-20 06:00] VITALS: BMI 17.0
[2025-06-20] MEDS: SYNTHROID 50 MCG PO (06:05)
[2025-06-20 07:30] VITALS: BP 107/68
[2025-06-20 08:05] LABS: Glucose - Point of Care 79 mg/dl (70-99)
[2025-06-20 08:20] LABS: Hematocrit 28.7 % (39.0-52.0); Hemoglobin 8.5 g/dL (13.0-18.0)
[2025-06-20 08:42] LABS: Blood Urea Nitrogen 22 mg/dl (9-20); Calcium 8.7 mg/dl (8.4-10.2); Carbon Dioxide 27 mmol/L (22-30); Chloride 105 mmol/L (98-107); Estimated Creatinine Clearance 18 ml/min; Glucose 79 mg/dl (70-99); Potassium 4.2 mmol/L (3.5-5.1); Sodium 137 mmol/L (135-145); eGFR 19.59
[2025-06-20] MEDS: NOVOLOG FLEXPEN-LOW RESISTANCE SC ×3 (08:54→17:58)
[2025-06-20] MEDS: RETACRIT 10000 UNITS IV (09:44)
--- NOTE | 2025-06-20 10:00 | W.PN.NEPH.HD ---
Assessment
-
Patient seen on dialysis
Systolic blood pressure 118
Comfortable on dialysis
Progress Note - Hemodialysis
-
Date of Service: June 20, 2025
Duration: 3 hours
Potassium Bath: 3
Calcium Bath: 2.5
Opti-Dialyzer: 160
Ultrafiltration: Other (Even)
Blood Flow: 350
Dialysate Flow: 600
Heparin: None
EPO: 10,000
--- NOTE | 2025-06-20 10:32 | W.PN.HOSP.TC ---
Today's Communication/Plan
-
pendign bed in [facility]
Assessment / Plan
Assessment / Plan
Impression/plan
49yo M with PMHx of past medical history notable for metastatic RCC (s/p prior nephrectomy 12/2024) complicated by spinal mets and spinal infection (s/p prior washout ) with MSSA bacteremia, obstructive uropathy (s/p R JJ stent 04/2025),
previous uremia (s/p iHD), severe protein calorie malnutrition (s/p previous DHT) and ongoing nausea and odynophagia, CKD Initially presented on 03/27/25 to with worsening b/l LE weakness and found malignant soft tissue compressing spinal canal.
Had decompression and emolization done in [facility], then developed complication with spinal postOP wound infection with wound dehiscence and MSSA bacteremia s/p washout and woundVAc planned on [facility] till 06/10/25 and then chronic suppressive therapy.
Patient found hydronephrosis of his solitary R kidney and JJ stent placed. Developed worsening POLA finally requiring HD started on 05/18/25. Found elevated PR3, however with active infection and uncertain clinical value of this positive test - renal
biopsy and Rituxan therapy was declined by nephrology.
Patient with poor oral intake since developed feeling of dysphagia after recent surgery. Self-removed NG tube and declined PEG, planning to increase his oral intake to be able to improve calorie balance. GI called for nausea and odynophagia, so GI
did EGD on 05/25/25 without esophagitis, ulcerations or abnormalities, multiple gastric polyps seen, patchy erythema of duodenal bulb. GI advised empiric fluconazole for 14 days due to Hx of esophageal candidiasis. Plastic Sx consulted on 05/30/25
for postOP drain removal due to missed planned appt with current hospitalization. PT/OT recommended acute rehab, pending physiatry eval
ALso developed hallucinations both visual and acoustic on 06/05/25
MSSA Bacteremia secondary to Spinal Infection
- Completed course of cefazolin as of June 10 and transitioned to chronic antibiotic suppression with cephalexin.
- Follow-up schedule with ID at [place]
- Wound VAC present on transfer to , removed on 05/11
- Initially with bilateral paraspinal JEEVAN drain. One of the JEEVAN drain has been removed by plastic surgery. Continue wound care. Outpatient follow-up with surgery at [facility].
Metastatic Renal Cell Carcinoma
met to Spinal Column Metastasis
s/p Left L1 & B/L L2 Segmental Artery Embolization (03/30/25); T12-L2 laminectomy, Left L1/2 corpectomy, T11-L4 fusion (03/31/25); Thoracolumbar Wound Washout with PRS closure (04/30/2025).
In review of recent PET/CT on 02/27/2025 there is also high FDG activity/pulmonary nodule left upper lobe.
oncology signed off, rec 'OP follow up with [facility] oncologist recommended after discharge to discuss systemic therapy options base on resolution of infection, renal function, nutritional status, and performance status.'
MRI of the brain, ordered with persistent nausea and emesis and concern for central symptoms, negative for intracranial disease.
Acute kidney injury
Elevated anion gap metabolic acidosis.
Status post left nephrectomy for RCC.
Obstructive uropathy with right JJ stent placed on 05/05/2025
Eldridge catheter in place.
Continue Flomax and Proscar
Appreciate nephrology input, dialysis started 05/18/25
Continue dialysis as per nephrology
Hypotensive initiated on midodrine 2.5 mg 3 times daily.
Chronic normocytic anemia
Iron studies indicative of mild iron deficiency and anemia of chronic disease. Per heme/onc, no role for supplementation
Erythropoietin level of 4, low end of normal range.
Follow hemoglobin, transfuse if Hgb<7
Concern for esophageal candidiasis
With persistent odynophagia will start empiric treatment with Diflucan.
Continue acid suppression increasing Protonix to 40 mg IV twice daily.
EGD 05/25 with no abnormalities.
Completed empiric course of nystatin and Diflucan for 14 days.
SVT�sinus tachycardia.
Had 1 vasovagal episode/presyncope on 05/20.
Initiated on low-dose of beta-blockers
Additional workup including:
ECG sinus tach
Monitor on telemetry
Pro CHF BNP mildly elevated at 790
Echocardiogram with preserved biventricular function and no evidence for RV strain
Lower extremity Dopplers negative
Hemoglobin has been stable
VQ scan low probability
Prolonged QTc
Stop Remeron and Zofran
Improved
Avoid QT prolonging medications
Protracted encephalopathy. Suspect multifactorial metabolic toxic encephalopathy
Initially mental status, appetite, nausea and emesis improved with initiation of hemodialysis (possibly related to uremia)
Currently with agitation and visual hallucinations.
Brain imaging including MRI with no evidence of intracranial disease
Additional ID workup with no evidence of new infection.
Psychiatry input appreciated with concern for hypnopompic hallucinations possibly related to situational stress, disruption of sleep cycle and prolonged hospitalization.
Repeat MRI on 06/10 with no acute intracranial abnormal
Normal cortisol level including stim test.
Blood culture from 06/07, urine cultures negative to date
Continue lorazepam decreasing dose to avoid oversedation.
Seroquel discontinued, bupropion dose reduced to 100 mg daily
Encephalopathy appears to have resolved
Subclinical hypothyroidism.
TSH about 15.
T4/T3 marginal.
Initiated on levothyroxine 50 mcg daily on 06/07
Pain Management
-Patient previously on Morphine ER which was switched to Morphine IR when DHT was placed
-Patient had been refusing scheduled doses of narcotics
-Continue oxycodone PRN
Anxiety / Depression
-Continue bupropion
Deconditioning
-PM&R rec acute rehab once eating well or other nutrition plan in place
- Encourage increased p.o. intake and dietary supplementation, patient does not want PEG
DVT proph: SC Heparin
Code Status: Full Code
Dispo - acute inpatient rehab
Anticipated Discharge: 24 - 48 hours
Subjective/Interval History
-
Date of Service: June 20, 2025
Objective Data
-
Labs:
Laboratory Results
06/20/25
07:43
Hgb 8.5 L
Hct 28.7 L
Sodium 137
Potassium 4.2
Chloride 105
Carbon Dioxide 27
BUN 22 H
Creatinine 3.6 H
Glucose 79
Calcium 8.7
Vital Signs:
Vital Signs
Temp Pulse Resp BP Pulse Ox
98.3 F 78 16 105/71 99
06/20/25 07:30 06/20/25 07:30 06/20/25 07:30 06/20/25 07:49 06/20/25 07:30
I&O
06/19/25 06/20/25 06/21/25
06:59 06:59 06:59
Intake Total 420 / 420 720 / 720
Output Total 1045 / 1045 400 / 400
Balance -625 / -625 320 / 320
Review of Systems
-
History Source: Patient
All other systems: Reviewed and negative
Physical Exam
-
General: No Apparent Distress
HEENT: Normocephalic
Respiratory: Clear to Auscultation
Cardiac: Regular Rhythm
Neuro: Awake, Alert, Oriented and AO x 3
Psych: Calm
[2025-06-20] MEDS: HEPARIN 3900 UNITS INTRACATH (10:51)
[2025-06-20] MEDS: ANTIFUNGAL CLEAR 1 APPLIC TOPICAL ×2 (11:52→20:48)
[2025-06-20] MEDS: DESENEX/MITRAZOL/ZEASORB 1 APPLIC TOPICAL ×2 (11:52→20:48)
[2025-06-20] MEDS: SENOKOT PO ×2 (11:53→20:48)
[2025-06-20] MEDS: OASIS PO ×4 (11:54→20:48)
[2025-06-20] MEDS: VITAMIN B1 100 MG PO (11:55)
[2025-06-20] MEDS: VITAMIN C 250 MG PO (11:55)
[2025-06-20] MEDS: PROSCAR 5 MG PO (11:55)
[2025-06-20] MEDS: PROTONIX 40 MG PO ×2 (11:55→20:56)
[2025-06-20 11:56] LABS: Glucose - Point of Care 107 mg/dl (70-99)
[2025-06-20] MEDS: LOPRESSOR 12.5 MG PO ×2 (11:56→20:56)
[2025-06-20] MEDS: WELLBUTRIN SR (12 hour sustained release) 100 MG PO (11:56)
[2025-06-20] MEDS: HEPARIN 5000 UNITS SC ×2 (11:56→20:56)
[2025-06-20 16:00] VITALS: BP 107/74
[2025-06-20 16:40] LABS: Glucose - Point of Care 85 mg/dl (70-99)
[2025-06-20] MEDS: KEFLEX 500 MG PO (17:58)
[2025-06-20] MEDS: FLOMAX 0.4 MG PO (21:00)
[2025-06-20] MEDS: ATIVAN 1 MG PO (21:01)
[2025-06-20 22:01] LABS: Glucose - Point of Care 78 mg/dl (70-99)
[2025-06-20 23:00] VITALS: BP 111/77
[2025-06-21] MEDS: SYNTHROID 50 MCG PO (05:38)
[2025-06-21 06:00] VITALS: BMI 17.2
[2025-06-21 07:30] VITALS: BP 108/72
[2025-06-21] MEDS: NOVOLOG FLEXPEN-LOW RESISTANCE SC ×3 (09:05→16:44)
[2025-06-21] MEDS: DESENEX/MITRAZOL/ZEASORB 1 APPLIC TOPICAL ×2 (09:06→21:19)
[2025-06-21] MEDS: ANTIFUNGAL CLEAR 1 APPLIC TOPICAL ×2 (09:06→21:19)
[2025-06-21] MEDS: OASIS PO ×4 (09:08→21:21)
[2025-06-21] MEDS: HEPARIN 5000 UNITS SC ×2 (09:09→21:19)
[2025-06-21] MEDS: WELLBUTRIN SR (12 hour sustained release) 100 MG PO (09:10)
[2025-06-21] MEDS: PROSCAR 5 MG PO (09:11)
[2025-06-21] MEDS: PROTONIX 40 MG PO ×2 (09:11→21:20)
[2025-06-21] MEDS: VITAMIN B1 100 MG PO (09:11)
[2025-06-21] MEDS: SENOKOT PO ×2 (09:11→21:20)
[2025-06-21] MEDS: VITAMIN C 250 MG PO (09:11)
[2025-06-21] MEDS: LOPRESSOR 12.5 MG PO ×2 (09:12→21:20)
--- NOTE | 2025-06-21 11:14 | W.PN.HOSP.TC ---
Today's Communication/Plan
-
pending bed in acute rehab
labs in AM
Assessment / Plan
Assessment / Plan
Impression/plan
49yo M with PMHx of past medical history notable for metastatic RCC (s/p prior nephrectomy 12/2024) complicated by spinal mets and spinal infection (s/p prior washout ) with MSSA bacteremia, obstructive uropathy (s/p R JJ stent 04/2025),
previous uremia (s/p iHD), severe protein calorie malnutrition (s/p previous DHT) and ongoing nausea and odynophagia, CKD Initially presented on 03/27/25 to with worsening b/l LE weakness and found malignant soft tissue compressing spinal canal.
Had decompression and emolization done in [facility], then developed complication with spinal postOP wound infection with wound dehiscence and MSSA bacteremia s/p washout and woundVAc planned on [facility] till 06/10/25 and then chronic suppressive therapy.
Patient found hydronephrosis of his solitary R kidney and JJ stent placed. Developed worsening POLA finally requiring HD started on 05/18/25. Found elevated PR3, however with active infection and uncertain clinical value of this positive test - renal
biopsy and Rituxan therapy was declined by nephrology.
Patient with poor oral intake since developed feeling of dysphagia after recent surgery. Self-removed NG tube and declined PEG, planning to increase his oral intake to be able to improve calorie balance. GI called for nausea and odynophagia, so GI
did EGD on 05/25/25 without esophagitis, ulcerations or abnormalities, multiple gastric polyps seen, patchy erythema of duodenal bulb. GI advised empiric fluconazole for 14 days due to Hx of esophageal candidiasis. Plastic Sx consulted on 05/30/25
for postOP drain removal due to missed planned appt with current hospitalization. PT/OT recommended acute rehab, pending physiatry eval
ALso developed hallucinations both visual and acoustic on 06/05/25
MSSA Bacteremia secondary to Spinal Infection
- Completed course of cefazolin as of June 10 and transitioned to chronic antibiotic suppression with cephalexin.
- Follow-up schedule with ID at [place]
- Wound VAC present on transfer to , removed on 05/11
- Initially with bilateral paraspinal JEEVAN drain. One of the JEEVAN drain has been removed by plastic surgery. Continue wound care. Outpatient follow-up with surgery at [facility].
Metastatic Renal Cell Carcinoma
met to Spinal Column Metastasis
s/p Left L1 & B/L L2 Segmental Artery Embolization (03/30/25); T12-L2 laminectomy, Left L1/2 corpectomy, T11-L4 fusion (03/31/25); Thoracolumbar Wound Washout with PRS closure (04/30/2025).
In review of recent PET/CT on 02/27/2025 there is also high FDG activity/pulmonary nodule left upper lobe.
oncology signed off, rec 'OP follow up with [facility] oncologist recommended after discharge to discuss systemic therapy options base on resolution of infection, renal function, nutritional status, and performance status.'
MRI of the brain, ordered with persistent nausea and emesis and concern for central symptoms, negative for intracranial disease.
Acute kidney injury
Elevated anion gap metabolic acidosis.
Status post left nephrectomy for RCC.
Obstructive uropathy with right JJ stent placed on 05/05/2025
Eldridge catheter in place.
Continue Flomax and Proscar
Appreciate nephrology input, dialysis started 05/18/25
Continue dialysis as per nephrology
Hypotensive initiated on midodrine 2.5 mg 3 times daily.
Chronic normocytic anemia
Iron studies indicative of mild iron deficiency and anemia of chronic disease. Per heme/onc, no role for supplementation
Erythropoietin level of 4, low end of normal range.
Follow hemoglobin, transfuse if Hgb<7
Concern for esophageal candidiasis
With persistent odynophagia will start empiric treatment with Diflucan.
Continue acid suppression increasing Protonix to 40 mg IV twice daily.
EGD 05/25 with no abnormalities.
Completed empiric course of nystatin and Diflucan for 14 days.
SVT�sinus tachycardia.
Had 1 vasovagal episode/presyncope on 05/20.
Initiated on low-dose of beta-blockers
Additional workup including:
ECG sinus tach
Monitor on telemetry
Pro CHF BNP mildly elevated at 790
Echocardiogram with preserved biventricular function and no evidence for RV strain
Lower extremity Dopplers negative
Hemoglobin has been stable
VQ scan low probability
Prolonged QTc
Stop Remeron and Zofran
Improved
Avoid QT prolonging medications
Protracted encephalopathy. Suspect multifactorial metabolic toxic encephalopathy
Initially mental status, appetite, nausea and emesis improved with initiation of hemodialysis (possibly related to uremia)
Currently with agitation and visual hallucinations.
Brain imaging including MRI with no evidence of intracranial disease
Additional ID workup with no evidence of new infection.
Psychiatry input appreciated with concern for hypnopompic hallucinations possibly related to situational stress, disruption of sleep cycle and prolonged hospitalization.
Repeat MRI on 06/10 with no acute intracranial abnormal
Normal cortisol level including stim test.
Blood culture from 06/07, urine cultures negative to date
Continue lorazepam decreasing dose to avoid oversedation.
Seroquel discontinued, bupropion dose reduced to 100 mg daily
Encephalopathy appears to have resolved
Subclinical hypothyroidism.
TSH about 15.
T4/T3 marginal.
Initiated on levothyroxine 50 mcg daily on 06/07
Pain Management
-Patient previously on Morphine ER which was switched to Morphine IR when DHT was placed
-Patient had been refusing scheduled doses of narcotics
-Continue oxycodone PRN
Anxiety / Depression
-Continue bupropion
Deconditioning
-PM&R rec acute rehab once eating well or other nutrition plan in place
- Encourage increased p.o. intake and dietary supplementation, patient does not want PEG
DVT proph: SC Heparin
Code Status: Full Code
Dispo - acute inpatient rehab
Anticipated Discharge: Within 24 hours
Subjective/Interval History
-
Date of Service: June 21, 2025
Objective Data
-
Vital Signs:
Vital Signs
Temp Pulse Resp BP Pulse Ox
98.1 F 77 16 108/72 99
06/21/25 07:30 06/21/25 07:30 06/21/25 07:30 06/21/25 09:12 06/21/25 07:30
I&O
06/20/25 06/21/25 06/22/25
06:59 06:59 06:59
Intake Total 720 / 720
Output Total 400 / 400 865 / 865
Balance 320 / 320 -865 / -865
Review of Systems
-
History Source: Patient
All other systems: Reviewed and negative
Physical Exam
-
General: No Apparent Distress
HEENT: Normocephalic
Neuro: Awake, Alert, Oriented and AO x 3
Psych: Calm; Negative Confused
--- NOTE | 2025-06-21 11:53 | W.PN.NEPH.PH ---
Today's Communication / Plan
-
Next dialysis will be for Sunday
Follow BMP and patient to assess for possible recovery
Assessment/Plan
-
IMP:
POLA
Metastatic Renal Cell Carcinoma with Spinal Column Metastasis and subsequent Spinal Infection s/p Left L1 & B/L L2 Segmental Artery Embolization (03/30/25); T12-L2 laminectomy, Left L1/2 corpectomy, T11-L4 fusion (03/31/25); Thoracolumbar Wound
Washout with PRS closure (04/30/2025).
recent PET/CT on 02/27/2025 there is also high FDG activity/pulmonary nodule left upper lobe.
MSSA Bacteremia secondary to Spinal Infection
Status post left nephrectomy for RCC.
Acute urine retention
Obstructive uropathy with right JJ stent placed on 05/05/2025
Elevated anion gap metabolic acidosis.
Chronic normocytic anemia
Severe Protein Calorie Malnutrition
Anxiety / Depression
Hyperalbuminemia
Plan:
HD TTS this week too (will be off schedule)
he remains non oliguric with lovett
hemodynamically stable on low dose midodrine
on chr po suppressive abx per ID
Anemia treated with TIM
await rehab placement -amanda Lozoya
-
-
Date of Service: June 21, 2025
CC / HPI / ROS
-
Chief Complaint:
POLA
History of Present Illness:
POLA/Cr HD started for uremia
Hgb was 8.5on 06/20
BP soft
Now on Sunday schedule for dialysis
Review of Systems:
no CP/SOB
nonoliguric with lovett
no fever
has good appetite, eating well
Labs
-
Labs:
WBC 3.4 10^3/uL (4.8-10.8) L 06/18/25 08:19
RBC 2.72 10^6/uL (4.70-6.10) L 06/18/25 08:19
Hgb 8.5 g/dL (13.0-18.0) L 06/20/25 07:43
Hct 28.7 % (39.0-52.0) L 06/20/25 07:43
Plt Count 226 10^3/uL (130-400) D 06/18/25 08:19
Sodium 137 mmol/L (135-145) 06/20/25 07:43
Potassium 4.2 mmol/L (3.5-5.1) 06/20/25 07:43
Chloride 105 mmol/L (98-107) 06/20/25 07:43
Carbon Dioxide 27 mmol/L (22-30) 06/20/25 07:43
BUN 22 mg/dl (9-20) H 06/20/25 07:43
Creatinine 3.6 mg/dL (0.7-1.3) H 06/20/25 07:43
eGFR 19.59 06/20/25 07:43
Glucose 79 mg/dl (70-99) 06/20/25 07:43
Calcium 8.7 mg/dl (8.4-10.2) 06/20/25 07:43
Phosphorus 3.9 mg/dl (2.5-4.5) 06/07/25 08:21
Sjj-[id number] Pept Cancelled 05/27/25 12:44
Albumin 2.7 g/dl (3.5-5.0) L 06/07/25 08:21
Physical Exam
-
Vital Signs:
Vital Signs
Temp Pulse Resp BP Pulse Ox
98.1 F 77 16 108/72 99
06/21/25 07:30 06/21/25 07:30 06/21/25 07:30 06/21/25 09:12 06/21/25 07:30
Cardiovascular:: Regular rate and rhythm
Respiratory:: Bilateral: CTA (decreased BS)
Lung Excursion:: Normal
Abdomen:: Nontender and Soft
Bowel Sounds:: Normal
Extremity Edema:: None: Bilateral:
Lovett Catheter: Yes
[2025-06-21 12:31] LABS: Glucose - Point of Care 95 mg/dl (70-99)
[2025-06-21 15:55] VITALS: BP 126/84
[2025-06-21 16:43] LABS: Glucose - Point of Care 90 mg/dl (70-99)
[2025-06-21] MEDS: KEFLEX 500 MG PO (17:55)
[2025-06-21] MEDS: FLOMAX 0.4 MG PO (21:20)
[2025-06-21] MEDS: ATIVAN 1 MG PO (21:20)
[2025-06-21 21:30] LABS: Glucose - Point of Care 108 mg/dl (70-99)
[2025-06-21 23:00] VITALS: BP 104/65
[2025-06-22] MEDS: SYNTHROID 50 MCG PO (05:38)
[2025-06-22 06:00] VITALS: BMI 16.9
[2025-06-22 07:00] VITALS: BP 102/69
[2025-06-22 07:39] LABS: Glucose - Point of Care 86 mg/dl (70-99)
[2025-06-22] MEDS: NOVOLOG FLEXPEN-LOW RESISTANCE SC ×4 (08:03→17:35)
[2025-06-22] MEDS: VITAMIN B1 100 MG PO (09:54)
[2025-06-22] MEDS: LOPRESSOR 12.5 MG PO ×2 (09:54→20:43)
[2025-06-22] MEDS: PROTONIX 40 MG PO ×2 (09:54→20:43)
[2025-06-22] MEDS: WELLBUTRIN SR (12 hour sustained release) 100 MG PO (09:54)
[2025-06-22] MEDS: VITAMIN C 250 MG PO (09:54)
[2025-06-22] MEDS: PROSCAR 5 MG PO (09:55)
[2025-06-22] MEDS: HEPARIN 5000 UNITS SC ×2 (09:55→20:42)
[2025-06-22] MEDS: SENOKOT PO ×2 (09:56→21:00)
[2025-06-22] MEDS: OASIS PO ×3 (09:56→17:34)
[2025-06-22] MEDS: ANTIFUNGAL CLEAR TOPICAL ×2 (09:57)
[2025-06-22] MEDS: DESENEX/MITRAZOL/ZEASORB TOPICAL ×2 (09:57)
[2025-06-22 11:30] LABS: Glucose - Point of Care 125 mg/dl (70-99)
--- NOTE | 2025-06-22 12:42 | W.PN.NEPH.PH ---
Today's Communication / Plan
-
VT
Assessment/Plan
-
IMP:
POLA
Metastatic Renal Cell Carcinoma with Spinal Column Metastasis and subsequent Spinal Infection s/p Left L1 & B/L L2 Segmental Artery Embolization (03/30/25); T12-L2 laminectomy, Left L1/2 corpectomy, T11-L4 fusion (03/31/25); Thoracolumbar Wound
Washout with PRS closure (04/30/2025).
recent PET/CT on 02/27/2025 there is also high FDG activity/pulmonary nodule left upper lobe.
MSSA Bacteremia secondary to Spinal Infection
Status post left nephrectomy for RCC.
Acute urine retention
Obstructive uropathy with right JJ stent placed on 05/05/2025
Elevated anion gap metabolic acidosis.
Chronic normocytic anemia
Severe Protein Calorie Malnutrition
Anxiety / Depression
Hyperalbuminemia
Plan:
HD tomorrow
voiding trial
hemodynamically stable on low dose midodrine
abx per ID
Anemia treated with TIM
await rehab placement -amanda Lozoya
-
-
Date of Service: June 22, 2025
CC / HPI / ROS
-
Chief Complaint:
POLA
History of Present Illness:
POLA/Cr HD started for uremia
BP low stable
Now on Sunday schedule for dialysis
tolerated HD sunday
Review of Systems:
no CP/SOB
nonoliguric with lovett
no fever
has good appetite, eating well
Labs
-
Labs:
eGFR 19.59 06/20/25 07:43
Phosphorus 3.9 mg/dl (2.5-4.5) 06/07/25 08:21
Bzs-D-Xnvxyslyzzr Pept Cancelled 05/27/25 12:44
Physical Exam
-
Vital Signs:
Vital Signs
Temp Pulse Resp BP Pulse Ox
98.4 F 78 16 102/69 100
06/22/25 07:00 06/22/25 09:55 06/22/25 07:00 06/22/25 09:55 06/22/25 07:00
Cardiovascular:: Regular rate and rhythm
Respiratory:: Bilateral: Coarse
Lung Excursion:: Normal
Abdomen:: Nontender and Soft
Bowel Sounds:: Normal
Extremity Edema:: None: Bilateral:
[2025-06-22 15:00] VITALS: BP 107/71
--- NOTE | 2025-06-22 15:30 | PTCARENOTE ---
Contacted phlebotomy earlier today to notify them that patient was not getting HD today/would need labs drawn. Was told at that time that someone would be up to draw. Called again this afternoon and told no one available to do so. Before obtaining,
clarified if hospitalist would want labs or okay to wait until tomorrow with HD. Per Dr. Michel via TT, okay to wait until tomorrow to obtain labs during HD.
Retimed labs for tomorrow.
--- NOTE | 2025-06-22 16:12 | W.PN.HOSP.TC ---
Today's Communication/Plan
-
Trial of voiding
EGD
Placement
Assessment / Plan
Assessment / Plan
Impression/plan
49yo M with PMHx of past medical history notable for metastatic RCC (s/p prior nephrectomy 12/2024) complicated by spinal mets and spinal infection (s/p prior washout ) with MSSA bacteremia, obstructive uropathy (s/p R JJ stent 04/2025),
previous uremia (s/p iHD), severe protein calorie malnutrition (s/p previous DHT) and ongoing nausea and odynophagia, CKD Initially presented on 03/27/25 to with worsening b/l LE weakness and found malignant soft tissue compressing spinal canal.
Had decompression and emolization done in [facility], then developed complication with spinal postOP wound infection with wound dehiscence and MSSA bacteremia s/p washout and woundVAc planned on [facility] till 06/10/25 and then chronic suppressive therapy.
Patient found hydronephrosis of his solitary R kidney and JJ stent placed. Developed worsening POLA finally requiring HD started on 05/18/25. Found elevated PR3, however with active infection and uncertain clinical value of this positive test - renal
biopsy and Rituxan therapy was declined by nephrology.
Patient with poor oral intake since developed feeling of dysphagia after recent surgery. Self-removed NG tube and declined PEG, planning to increase his oral intake to be able to improve calorie balance. GI called for nausea and odynophagia, so GI
did EGD on 05/25/25 without esophagitis, ulcerations or abnormalities, multiple gastric polyps seen, patchy erythema of duodenal bulb. GI advised empiric fluconazole for 14 days due to Hx of esophageal candidiasis. Plastic Sx consulted on 05/30/25
for postOP drain removal due to missed planned appt with current hospitalization. PT/OT recommended acute rehab, pending physiatry eval
ALso developed hallucinations both visual and acoustic on 06/05/25
MSSA Bacteremia secondary to Spinal Infection
- Completed course of cefazolin as of June 10 and transitioned to chronic antibiotic suppression with cephalexin.
- Follow-up schedule with ID at [place]
- Wound VAC present on transfer to , removed on 05/11
- Initially with bilateral paraspinal JEEVAN drain. One of the JEEVAN drain has been removed by plastic surgery. Continue wound care. Outpatient follow-up with surgery at [facility].
Metastatic Renal Cell Carcinoma
met to Spinal Column Metastasis
s/p Left L1 & B/L L2 Segmental Artery Embolization (03/30/25); T12-L2 laminectomy, Left L1/2 corpectomy, T11-L4 fusion (03/31/25); Thoracolumbar Wound Washout with PRS closure (04/30/2025).
In review of recent PET/CT on 02/27/2025 there is also high FDG activity/pulmonary nodule left upper lobe.
oncology signed off, rec 'OP follow up with [facility] oncologist recommended after discharge to discuss systemic therapy options base on resolution of infection, renal function, nutritional status, and performance status.'
MRI of the brain, ordered with persistent nausea and emesis and concern for central symptoms, negative for intracranial disease.
Acute kidney injury
Elevated anion gap metabolic acidosis.
Status post left nephrectomy for RCC.
Obstructive uropathy with right JJ stent placed on 05/05/2025
Eldridge catheter in place. Trial of void initiated on 06/22
Continue Flomax and Proscar
Appreciate nephrology input, dialysis started 05/18/25
Continue dialysis as per nephrology
Hypotensive initiated on midodrine 2.5 mg 3 times daily.
Chronic normocytic anemia
Iron studies indicative of mild iron deficiency and anemia of chronic disease. Per heme/onc, no role for supplementation
Erythropoietin level of 4, low end of normal range.
Follow hemoglobin, transfuse if Hgb<7
Concern for esophageal candidiasis
With persistent odynophagia will start empiric treatment with Diflucan.
Continue acid suppression increasing Protonix to 40 mg IV twice daily.
EGD 05/25 with no abnormalities.
Completed empiric course of nystatin and Diflucan for 14 days.
SVT�sinus tachycardia.
Had 1 vasovagal episode/presyncope on 05/20.
Initiated on low-dose of beta-blockers
Additional workup including:
ECG sinus tach
Monitor on telemetry
Pro CHF BNP mildly elevated at 790
Echocardiogram with preserved biventricular function and no evidence for RV strain
Lower extremity Dopplers negative
Hemoglobin has been stable
VQ scan low probability
Prolonged QTc
Stop Remeron and Zofran
Improved
Avoid QT prolonging medications
Protracted encephalopathy. Suspect multifactorial metabolic toxic encephalopathy
Initially mental status, appetite, nausea and emesis improved with initiation of hemodialysis (possibly related to uremia)
Currently with agitation and visual hallucinations.
Brain imaging including MRI with no evidence of intracranial disease
Additional ID workup with no evidence of new infection.
Psychiatry input appreciated with concern for hypnopompic hallucinations possibly related to situational stress, disruption of sleep cycle and prolonged hospitalization.
Repeat MRI on 06/10 with no acute intracranial abnormal
Normal cortisol level including stim test.
Blood culture from 06/07, urine cultures negative to date
Continue lorazepam decreasing dose to avoid oversedation.
Seroquel discontinued, bupropion dose reduced to 100 mg daily
Encephalopathy appears to have resolved
Subclinical hypothyroidism.
TSH about 15.
T4/T3 marginal.
Initiated on levothyroxine 50 mcg daily on 06/07
Pain Management
-Patient previously on Morphine ER which was switched to Morphine IR when DHT was placed
-Patient had been refusing scheduled doses of narcotics
-Continue oxycodone PRN
Anxiety / Depression
-Continue bupropion
Deconditioning
-PM&R rec acute rehab once eating well or other nutrition plan in place
- Encourage increased p.o. intake and dietary supplementation, patient does not want PEG
DVT proph: SC Heparin
Code Status: Full Code
Dispo - acute inpatient rehab
Anticipated Discharge: 24 - 48 hours
Subjective/Interval History
-
Date of Service: June 22, 2025
Objective Data
-
Labs:
Laboratory Results
06/22/25
06:00
WBC Cancelled
Hgb Cancelled
Hct Cancelled
Plt Count Cancelled
Sodium Cancelled
Potassium Cancelled
Chloride Cancelled
Carbon Dioxide Cancelled
BUN Cancelled
Creatinine Cancelled
Glucose Cancelled
Calcium Cancelled
Total Bilirubin Cancelled
AST Cancelled
ALT Cancelled
Alkaline Phosphatase Cancelled
Vital Signs:
Vital Signs
Temp Pulse Resp BP Pulse Ox
99.1 F 72 18 107/71 100
06/22/25 15:00 06/22/25 15:00 06/22/25 15:00 06/22/25 15:00 06/22/25 15:00
I&O
06/21/25 06/22/25 06/23/25
06:59 06:59 06:59
Intake Total 920 / 920 480 / 480
Output Total 865 / 865 600 / 600 800 / 800
Balance -865 / -865 320 / 320 -320 / -320
Physical Exam
-
General: No Apparent Distress
HEENT: Normocephalic
Neuro: Awake, Alert, Oriented and AO x 3
Psych: Calm; Negative Confused
--- NOTE | 2025-06-22 16:52 | CM ---
Pt needs updated PT OT evals.
Pt will need an auth for [facility] at .
HD x 3 weekly.
PLAN Needs updated PT for auth to [facility]
[2025-06-22 16:53] LABS: Glucose - Point of Care 155 mg/dl (70-99)
[2025-06-22] MEDS: KEFLEX 500 MG PO (17:35)
[2025-06-22] MEDS: ANTIFUNGAL CLEAR 1 APPLIC TOPICAL (20:44)
[2025-06-22] MEDS: DESENEX/MITRAZOL/ZEASORB 1 APPLIC TOPICAL (20:44)
[2025-06-22 21:21] LABS: Glucose - Point of Care 112 mg/dl (70-99)
[2025-06-22] MEDS: ATIVAN 1 MG PO (21:46)
[2025-06-22] MEDS: FLOMAX 0.4 MG PO (21:47)
[2025-06-22] MEDS: OASIS 2 SPRAY PO (21:48)
[2025-06-22 23:00] VITALS: BP 118/73
[2025-06-23] MEDS: SYNTHROID 50 MCG PO (05:34)
[2025-06-23 05:36] VITALS: BMI 16.9
[2025-06-23 07:45] VITALS: BP 104/70
[2025-06-23 08:16] LABS: Glucose - Point of Care 85 mg/dl (70-99)
[2025-06-23 08:59] LABS: ALT (SGPT) < 10 U/L (0-50); AST (SGOT) 13 U/L (17-59); Albumin 2.9 g/dl (3.5-5.0); Alkaline Phosphatase 65 U/L (38-126); Blood Urea Nitrogen 25 mg/dl (9-20); Calcium 8.8 mg/dl (8.4-10.2); Carbon Dioxide 24 mmol/L (22-30); Chloride 106 mmol/L (98-107); Estimated Creatinine Clearance 19 ml/min; Glucose 81 mg/dl (70-99); Potassium 4.6 mmol/L (3.5-5.1); Sodium 135 mmol/L (135-145); Total Protein 6.0 g/dl (6.3-8.2); eGFR 21.75
[2025-06-23] MEDS: RETACRIT 10000 UNITS IV (09:51)
[2025-06-23] MEDS: NOVOLOG FLEXPEN-LOW RESISTANCE SC ×3 (10:16→17:26)
[2025-06-23 10:35] LABS: Hematocrit 28.6 % (39.0-52.0); Hemoglobin 8.8 g/dL (13.0-18.0); Mean Corp Hgb Conc. 30.8 g/dL (33.0-37.0); Mean Corpuscular Volume 97.9 fL (80.0-94.0); Nucleated Red Blood Cells % 0 % (-); Platelet Count 216 10^3/uL (130-400); Red Cell Dist. Width 14.1 % (11.5-14.5)
[2025-06-23] MEDS: HEPARIN 3800 UNITS INTRACATH (11:09)
[2025-06-23 12:17] LABS: Glucose - Point of Care 96 mg/dl (70-99)
[2025-06-23] MEDS: VITAMIN B1 100 MG PO (12:45)
[2025-06-23] MEDS: PROTONIX 40 MG PO ×2 (12:45→21:18)
[2025-06-23] MEDS: PROSCAR 5 MG PO (12:45)
[2025-06-23] MEDS: WELLBUTRIN SR (12 hour sustained release) 100 MG PO (12:45)
[2025-06-23] MEDS: VITAMIN C 250 MG PO (12:45)
[2025-06-23] MEDS: LOPRESSOR 12.5 MG PO ×2 (12:45→21:18)
[2025-06-23] MEDS: DESENEX/MITRAZOL/ZEASORB TOPICAL ×2 (12:46→21:16)
[2025-06-23] MEDS: ANTIFUNGAL CLEAR TOPICAL ×2 (12:46→21:16)
[2025-06-23] MEDS: OASIS PO ×4 (12:46→21:21)
[2025-06-23] MEDS: HEPARIN 5000 UNITS SC ×2 (12:46→21:16)
[2025-06-23] MEDS: SENOKOT PO ×2 (12:47→21:18)
--- NOTE | 2025-06-23 12:47 | W.PN.NEPH.HD ---
Assessment
-
Pt seen on HD. no complaints. VSS, access ok
passed voiding trial
Progress Note - Hemodialysis
-
Date of Service: June 23, 2025
Duration: 3 hours
Potassium Bath: 3
Calcium Bath: 2.5
Opti-Dialyzer: 160
Ultrafiltration: Other (0)
Blood Flow: 400
Dialysate Flow: 600
Heparin: 0
EPO: 0
--- NOTE | 2025-06-23 13:11 | CM ---
CM following for discharge to [facility]. Authorization is needed; awaiting updated OT notes (OT will see patient today). CM to coordinate transfer to [facility] once insurance authorization is obtained.
--- NOTE | 2025-06-23 14:20 | W.PN.HOSP.TC ---
Today's Communication/Plan
-
PT assessment
Placement hopefully to acute rehab
Assessment / Plan
Assessment / Plan
Impression/plan
49yo M with PMHx of past medical history notable for metastatic RCC (s/p prior nephrectomy 12/2024) complicated by spinal mets and spinal infection (s/p prior washout ) with MSSA bacteremia, obstructive uropathy (s/p R JJ stent 04/2025),
previous uremia (s/p iHD), severe protein calorie malnutrition (s/p previous DHT) and ongoing nausea and odynophagia, CKD Initially presented on 03/27/25 to with worsening b/l LE weakness and found malignant soft tissue compressing spinal canal.
Had decompression and emolization done in [facility], then developed complication with spinal postOP wound infection with wound dehiscence and MSSA bacteremia s/p washout and woundVAc planned on [facility] till 06/10/25 and then chronic suppressive therapy.
Patient found hydronephrosis of his solitary R kidney and JJ stent placed. Developed worsening POLA finally requiring HD started on 05/18/25. Found elevated PR3, however with active infection and uncertain clinical value of this positive test - renal
biopsy and Rituxan therapy was declined by nephrology.
Patient with poor oral intake since developed feeling of dysphagia after recent surgery. Self-removed NG tube and declined PEG, planning to increase his oral intake to be able to improve calorie balance. GI called for nausea and odynophagia, so GI
did EGD on 05/25/25 without esophagitis, ulcerations or abnormalities, multiple gastric polyps seen, patchy erythema of duodenal bulb. GI advised empiric fluconazole for 14 days due to Hx of esophageal candidiasis. Plastic Sx consulted on 05/30/25
for postOP drain removal due to missed planned appt with current hospitalization. PT/OT recommended acute rehab, pending physiatry eval
ALso developed hallucinations both visual and acoustic on 06/05/25
MSSA Bacteremia secondary to Spinal Infection
- Completed course of cefazolin as of June 10 and transitioned to chronic antibiotic suppression with cephalexin.
- Follow-up schedule with ID at [place]
- Wound VAC present on transfer to , removed on 05/11
- Initially with bilateral paraspinal JEEVAN drain. One of the JEEVAN drain has been removed by plastic surgery. Continue wound care. Outpatient follow-up with surgery at [facility].
Metastatic Renal Cell Carcinoma
met to Spinal Column Metastasis
s/p Left L1 & B/L L2 Segmental Artery Embolization (03/30/25); T12-L2 laminectomy, Left L1/2 corpectomy, T11-L4 fusion (03/31/25); Thoracolumbar Wound Washout with PRS closure (04/30/2025).
In review of recent PET/CT on 02/27/2025 there is also high FDG activity/pulmonary nodule left upper lobe.
oncology signed off, rec 'OP follow up with [facility] oncologist recommended after discharge to discuss systemic therapy options base on resolution of infection, renal function, nutritional status, and performance status.'
MRI of the brain, ordered with persistent nausea and emesis and concern for central symptoms, negative for intracranial disease.
Acute kidney injury
Elevated anion gap metabolic acidosis.
Status post left nephrectomy for RCC.
Obstructive uropathy with right JJ stent placed on 05/05/2025
Eldridge catheter in place. Trial of void initiated on 06/22
Continue Flomax and Proscar
Appreciate nephrology input, dialysis started 05/18/25
Continue dialysis as per nephrology
Hypotensive initiated on midodrine 2.5 mg 3 times daily.
Chronic normocytic anemia
Iron studies indicative of mild iron deficiency and anemia of chronic disease. Per heme/onc, no role for supplementation
Erythropoietin level of 4, low end of normal range.
Follow hemoglobin, transfuse if Hgb<7
Concern for esophageal candidiasis
With persistent odynophagia will start empiric treatment with Diflucan.
Continue acid suppression increasing Protonix to 40 mg IV twice daily.
EGD 05/25 with no abnormalities.
Completed empiric course of nystatin and Diflucan for 14 days.
SVT�sinus tachycardia.
Had 1 vasovagal episode/presyncope on 05/20.
Initiated on low-dose of beta-blockers
Additional workup including:
ECG sinus tach
Monitor on telemetry
Pro CHF BNP mildly elevated at 790
Echocardiogram with preserved biventricular function and no evidence for RV strain
Lower extremity Dopplers negative
Hemoglobin has been stable
VQ scan low probability
Prolonged QTc
Stop Remeron and Zofran
Improved
Avoid QT prolonging medications
Protracted encephalopathy. Suspect multifactorial metabolic toxic encephalopathy
Initially mental status, appetite, nausea and emesis improved with initiation of hemodialysis (possibly related to uremia)
Currently with agitation and visual hallucinations.
Brain imaging including MRI with no evidence of intracranial disease
Additional ID workup with no evidence of new infection.
Psychiatry input appreciated with concern for hypnopompic hallucinations possibly related to situational stress, disruption of sleep cycle and prolonged hospitalization.
Repeat MRI on 06/10 with no acute intracranial abnormal
Normal cortisol level including stim test.
Blood culture from 06/07, urine cultures negative to date
Continue lorazepam decreasing dose to avoid oversedation.
Seroquel discontinued, bupropion dose reduced to 100 mg daily
Encephalopathy appears to have resolved
Subclinical hypothyroidism.
TSH about 15.
T4/T3 marginal.
Initiated on levothyroxine 50 mcg daily on 06/07
Pain Management
-Patient previously on Morphine ER which was switched to Morphine IR when DHT was placed
-Patient had been refusing scheduled doses of narcotics
-Continue oxycodone PRN
Anxiety / Depression
-Continue bupropion
Deconditioning
-PM&R rec acute rehab once eating well or other nutrition plan in place
- Encourage increased p.o. intake and dietary supplementation, patient does not want PEG
DVT proph: SC Heparin
Code Status: Full Code
Dispo - acute inpatient rehab
Anticipated Discharge: 24 - 48 hours
Subjective/Interval History
-
Date of Service: June 23, 2025
Objective Data
-
Labs:
Laboratory Results
06/23/25
08:13
WBC 4.6 L
Hgb 8.8 L
Hct 28.6 L
Plt Count 216
Sodium 135
Potassium 4.6
Chloride 106
Carbon Dioxide 24
BUN 25 H
Creatinine 3.3 H
Glucose 81
Calcium 8.8
Total Bilirubin 0.3
AST 13 L
ALT < 10
Alkaline Phosphatase 65
Vital Signs:
Vital Signs
Temp Pulse Resp BP Pulse Ox
98.5 F 77 16 104/70 99
06/22/25 23:00 06/23/25 07:45 06/23/25 07:45 06/23/25 07:45 06/23/25 07:45
I&O
06/22/25 06/23/25 06/24/25
06:59 06:59 06:59
Intake Total 920 / 920 720 / 720
Output Total 600 / 600 1220 / 1220
Balance 320 / 320 -500 / -500
Physical Exam
-
General: No Apparent Distress
HEENT: Normocephalic
Neuro: Awake, Alert, Oriented and AO x 3
Psych: Calm; Negative Confused
[2025-06-23 15:25] VITALS: BP 121/75
[2025-06-23 16:28] LABS: Glucose - Point of Care 80 mg/dl (70-99)
[2025-06-23] MEDS: KEFLEX 500 MG PO (17:23)
[2025-06-23] MEDS: FLOMAX 0.4 MG PO (21:17)
[2025-06-23] MEDS: ATIVAN 1 MG PO (21:17)
[2025-06-23 21:18] LABS: Glucose - Point of Care 73 mg/dl (70-99)
[2025-06-23 23:00] VITALS: BP 108/75
[2025-06-24] MEDS: SYNTHROID 50 MCG PO (05:46)
[2025-06-24 06:00] VITALS: BMI 16.7
[2025-06-24 07:08] VITALS: BP 101/64
[2025-06-24 08:37] LABS: Glucose - Point of Care 99 mg/dl (70-99)
[2025-06-24] MEDS: NOVOLOG FLEXPEN-LOW RESISTANCE SC ×3 (08:46→17:34)
[2025-06-24] MEDS: ANTIFUNGAL CLEAR TOPICAL ×2 (09:05→20:54)
[2025-06-24] MEDS: DESENEX/MITRAZOL/ZEASORB TOPICAL ×2 (09:06→20:54)
[2025-06-24] MEDS: HEPARIN 5000 UNITS SC ×2 (09:06→20:55)
[2025-06-24] MEDS: LOPRESSOR 12.5 MG PO ×2 (09:07→20:56)
[2025-06-24] MEDS: WELLBUTRIN SR (12 hour sustained release) 100 MG PO (09:07)
[2025-06-24] MEDS: VITAMIN C 250 MG PO (09:08)
[2025-06-24] MEDS: PROTONIX 40 MG PO ×2 (09:08→20:54)
[2025-06-24] MEDS: VITAMIN B1 100 MG PO (09:08)
[2025-06-24] MEDS: SENOKOT PO ×2 (09:08→20:54)
[2025-06-24] MEDS: PROSCAR 5 MG PO (09:08)
[2025-06-24] MEDS: OASIS PO ×4 (09:08→21:08)
--- NOTE | 2025-06-24 11:39 | CM ---
Addendum entered by Cristina Ely 06/24/25 16:18:
TC from Julia at [facility]
Authorization for Acute Rehab approved
Auth # [id number]
Sart date 06/25/25, NRD 06/29/25
Updates to fax# [phone] or if you have access to [employer] you can upload into the portal.
Original Note:
Patient active with [facility]- varified by admissions.
[employer] denial on Availity- no rehab benefit.
Will initiate authorization with [facility] for acute rehab.
PT eval (P).
Will fax clinicals to [phone]
[2025-06-24 11:59] LABS: Glucose - Point of Care 99 mg/dl (70-99)
--- NOTE | 2025-06-24 12:21 | W.PN.HOSP.TC ---
Today's Communication/Plan
-
Placement
Assessment / Plan
Assessment / Plan
Impression/plan
49yo M with PMHx of past medical history notable for metastatic RCC (s/p prior nephrectomy 12/2024) complicated by spinal mets and spinal infection (s/p prior washout ) with MSSA bacteremia, obstructive uropathy (s/p R JJ stent 04/2025),
previous uremia (s/p iHD), severe protein calorie malnutrition (s/p previous DHT) and ongoing nausea and odynophagia, CKD Initially presented on 03/27/25 to with worsening b/l LE weakness and found malignant soft tissue compressing spinal canal.
Had decompression and emolization done in [facility], then developed complication with spinal postOP wound infection with wound dehiscence and MSSA bacteremia s/p washout and woundVAc planned on [facility] till 06/10/25 and then chronic suppressive therapy.
Patient found hydronephrosis of his solitary R kidney and JJ stent placed. Developed worsening POLA finally requiring HD started on 05/18/25. Found elevated PR3, however with active infection and uncertain clinical value of this positive test - renal
biopsy and Rituxan therapy was declined by nephrology.
Patient with poor oral intake since developed feeling of dysphagia after recent surgery. Self-removed NG tube and declined PEG, planning to increase his oral intake to be able to improve calorie balance. GI called for nausea and odynophagia, so GI
did EGD on 05/25/25 without esophagitis, ulcerations or abnormalities, multiple gastric polyps seen, patchy erythema of duodenal bulb. GI advised empiric fluconazole for 14 days due to Hx of esophageal candidiasis. Plastic Sx consulted on 05/30/25
for postOP drain removal due to missed planned appt with current hospitalization. PT/OT recommended acute rehab, pending physiatry eval
ALso developed hallucinations both visual and acoustic on 06/05/25
MSSA Bacteremia secondary to Spinal Infection
- Completed course of cefazolin as of June 10 and transitioned to chronic antibiotic suppression with cephalexin.
- Follow-up schedule with ID at [place]
- Wound VAC present on transfer to , removed on 05/11
- Initially with bilateral paraspinal JEEVAN drain. One of the JEEVAN drain has been removed by plastic surgery. Continue wound care. Outpatient follow-up with surgery at [facility].
Metastatic Renal Cell Carcinoma
met to Spinal Column Metastasis
s/p Left L1 & B/L L2 Segmental Artery Embolization (03/30/25); T12-L2 laminectomy, Left L1/2 corpectomy, T11-L4 fusion (03/31/25); Thoracolumbar Wound Washout with PRS closure (04/30/2025).
In review of recent PET/CT on 02/27/2025 there is also high FDG activity/pulmonary nodule left upper lobe.
oncology signed off, rec 'OP follow up with [facility] oncologist recommended after discharge to discuss systemic therapy options base on resolution of infection, renal function, nutritional status, and performance status.'
MRI of the brain, ordered with persistent nausea and emesis and concern for central symptoms, negative for intracranial disease.
Acute kidney injury
Elevated anion gap metabolic acidosis.
Status post left nephrectomy for RCC.
Obstructive uropathy with right JJ stent placed on 05/05/2025
Eldridge catheter in place. Trial of void initiated on 06/22
Continue Flomax and Proscar
Appreciate nephrology input, dialysis started 05/18/25
Continue dialysis as per nephrology
Hypotensive initiated on midodrine 2.5 mg 3 times daily.
Chronic normocytic anemia
Iron studies indicative of mild iron deficiency and anemia of chronic disease. Per heme/onc, no role for supplementation
Erythropoietin level of 4, low end of normal range.
Follow hemoglobin, transfuse if Hgb<7
Concern for esophageal candidiasis
With persistent odynophagia will start empiric treatment with Diflucan.
Continue acid suppression increasing Protonix to 40 mg IV twice daily.
EGD 05/25 with no abnormalities.
Completed empiric course of nystatin and Diflucan for 14 days.
SVT�sinus tachycardia.
Had 1 vasovagal episode/presyncope on 05/20.
Initiated on low-dose of beta-blockers
Additional workup including:
ECG sinus tach
Monitor on telemetry
Pro CHF BNP mildly elevated at 790
Echocardiogram with preserved biventricular function and no evidence for RV strain
Lower extremity Dopplers negative
Hemoglobin has been stable
VQ scan low probability
Prolonged QTc
Stop Remeron and Zofran
Improved
Avoid QT prolonging medications
Protracted encephalopathy. Suspect multifactorial metabolic toxic encephalopathy
Initially mental status, appetite, nausea and emesis improved with initiation of hemodialysis (possibly related to uremia)
Currently with agitation and visual hallucinations.
Brain imaging including MRI with no evidence of intracranial disease
Additional ID workup with no evidence of new infection.
Psychiatry input appreciated with concern for hypnopompic hallucinations possibly related to situational stress, disruption of sleep cycle and prolonged hospitalization.
Repeat MRI on 06/10 with no acute intracranial abnormal
Normal cortisol level including stim test.
Blood culture from 06/07, urine cultures negative to date
Continue lorazepam decreasing dose to avoid oversedation.
Seroquel discontinued, bupropion dose reduced to 100 mg daily
Encephalopathy appears to have resolved
Subclinical hypothyroidism.
TSH about 15.
T4/T3 marginal.
Initiated on levothyroxine 50 mcg daily on 06/07
Pain Management
-Patient previously on Morphine ER which was switched to Morphine IR when DHT was placed
-Patient had been refusing scheduled doses of narcotics
-Continue oxycodone PRN
Anxiety / Depression
-Continue bupropion
Deconditioning
-PM&R rec acute rehab once eating well or other nutrition plan in place
- Encourage increased p.o. intake and dietary supplementation, patient does not want PEG
DVT proph: SC Heparin
Code Status: Full Code
Dispo - acute inpatient rehab
Anticipated Discharge: 24 - 48 hours
Subjective/Interval History
-
Date of Service: June 24, 2025
Objective Data
-
Vital Signs:
Vital Signs
Temp Pulse Resp BP Pulse Ox
98.4 F 75 17 101/64 99
06/24/25 07:08 06/24/25 07:08 06/24/25 07:08 06/24/25 07:08 06/24/25 07:08
I&O
06/23/25 06/24/25 06/25/25
06:59 06:59 06:59
Intake Total 720 / 720 590 / 590 100 / 100
Output Total 1220 / 1220 310 / 310
Balance -500 / -500 590 / 590 -210 / -210
Physical Exam
-
General: No Apparent Distress
HEENT: Normocephalic
Neuro: Awake, Alert, Oriented and AO x 3
Psych: Calm; Negative Confused
[2025-06-24 12:27] VITALS: BP 111/72; PULSE 76
--- NOTE | 2025-06-24 13:46 | W.PN.NEPH.PH ---
Today's Communication / Plan
-
Dialysis tomorrow
Assessment/Plan
-
IMP:
POLA
Metastatic Renal Cell Carcinoma with Spinal Column Metastasis and subsequent Spinal Infection s/p Left L1 & B/L L2 Segmental Artery Embolization (03/30/25); T12-L2 laminectomy, Left L1/2 corpectomy, T11-L4 fusion (03/31/25); Thoracolumbar Wound
Washout with PRS closure (04/30/2025).
recent PET/CT on 02/27/2025 there is also high FDG activity/pulmonary nodule left upper lobe.
MSSA Bacteremia secondary to Spinal Infection
Status post left nephrectomy for RCC.
Acute urine retention
Obstructive uropathy with right JJ stent placed on 05/05/2025
Elevated anion gap metabolic acidosis.
Chronic normocytic anemia
Severe Protein Calorie Malnutrition
Anxiety / Depression
Hyperalbuminemia
Plan:
Hd tomorrow, orders provided
hemodynamically stable on low dose midodrine
abx per ID
Anemia treated with TIM
await rehab placement -possibly from [facility] acute rehab
-
-
Date of Service: June 24, 2025
CC / HPI / ROS
-
Chief Complaint:
POLA
History of Present Illness:
POLA/Cr HD started for uremia
BP low stable
Now on Sunday schedule for dialysis
tolerated HD sunday
Review of Systems:
no CP/SOB
nonoliguric with lovett
no fever
has good appetite, eating well
Labs
-
Labs:
WBC 4.6 10^3/uL (4.8-10.8) L 06/23/25 08:13
RBC 2.92 10^6/uL (4.70-6.10) L 06/23/25 08:13
Hgb 8.8 g/dL (13.0-18.0) L 06/23/25 08:13
Hct 28.6 % (39.0-52.0) L 06/23/25 08:13
Plt Count 216 10^3/uL (130-400) 06/23/25 08:13
Sodium 135 mmol/L (135-145) 06/23/25 08:13
Potassium 4.6 mmol/L (3.5-5.1) 06/23/25 08:13
Chloride 106 mmol/L (98-107) 06/23/25 08:13
Carbon Dioxide 24 mmol/L (22-30) 06/23/25 08:13
BUN 25 mg/dl (9-20) H 06/23/25 08:13
Creatinine 3.3 mg/dL (0.7-1.3) H 06/23/25 08:13
eGFR 21.75 06/23/25 08:13
Glucose 81 mg/dl (70-99) 06/23/25 08:13
Calcium 8.8 mg/dl (8.4-10.2) 06/23/25 08:13
Phosphorus 3.9 mg/dl (2.5-4.5) 06/07/25 08:21
Pjj-[id number] Pept Cancelled 05/27/25 12:44
Albumin 2.9 g/dl (3.5-5.0) L 06/23/25 08:13
Physical Exam
-
Vital Signs:
Vital Signs
Temp Pulse Resp BP Pulse Ox
98.4 F 75 17 101/64 99
06/24/25 07:08 06/24/25 07:08 06/24/25 07:08 06/24/25 07:08 06/24/25 07:08
Cardiovascular:: Regular rate and rhythm
Respiratory:: Bilateral: Coarse
Lung Excursion:: Normal
Abdomen:: Nontender and Soft
Bowel Sounds:: Normal
Extremity Edema:: None: Bilateral:
[2025-06-24 15:05] VITALS: BP 104/66
--- NOTE | 2025-06-24 16:36 | W.DCSUMMARY ---
Discharge Summary
Discharge Data
Date of Admission: 05/06/25
Date of Discharge: 06/24/25
Total time spent discharging patient (in min): 55
-
Pending Results: No
Hospital Course
49yo M with PMHx of past medical history notable for metastatic RCC (s/p prior nephrectomy 12/2024) complicated by spinal mets and spinal infection (s/p prior washout ) with MSSA bacteremia, obstructive uropathy (s/p R JJ stent 04/2025),
previous uremia (s/p iHD), severe protein calorie malnutrition (s/p previous DHT) and ongoing nausea and odynophagia, CKD Initially presented on 03/27/25 to with worsening b/l LE weakness and found malignant soft tissue compressing spinal canal.
Had decompression and emolization done in [facility], then developed complication with spinal postOP wound infection with wound dehiscence and MSSA bacteremia s/p washout and woundVAc planned on [facility] till 06/10/25 and then chronic suppressive therapy.
Patient found hydronephrosis of his solitary R kidney and JJ stent placed. Developed worsening POLA finally requiring HD started on 05/18/25. Found elevated PR3, however with active infection and uncertain clinical value of this positive test - renal
biopsy and Rituxan therapy was declined by nephrology.
Patient with poor oral intake since developed feeling of dysphagia after recent surgery. Self-removed NG tube and declined PEG, planning to increase his oral intake to be able to improve calorie balance. GI called for nausea and odynophagia, so GI
did EGD on 05/25/25 without esophagitis, ulcerations or abnormalities, multiple gastric polyps seen, patchy erythema of duodenal bulb. GI advised empiric fluconazole for 14 days due to Hx of esophageal candidiasis. Plastic Sx consulted on 05/30/25
for postOP drain removal due to missed planned appt with current hospitalization. PT/OT recommended acute rehab, pending physiatry eval
ALso developed hallucinations both visual and acoustic on 06/05/25
MSSA Bacteremia secondary to Spinal Infection
- Completed course of cefazolin as of June 10 and transitioned to chronic antibiotic suppression with cephalexin.
- Follow-up schedule with ID at [place]
- Wound VAC present on transfer to , removed on 05/11
- Initially with bilateral paraspinal JEEVAN drain. One of the JEEVAN drain has been removed by plastic surgery. Continue wound care. Outpatient follow-up with surgery at [facility].
Metastatic Renal Cell Carcinoma
met to Spinal Column Metastasis
s/p Left L1 & B/L L2 Segmental Artery Embolization (03/30/25); T12-L2 laminectomy, Left L1/2 corpectomy, T11-L4 fusion (03/31/25); Thoracolumbar Wound Washout with PRS closure (04/30/2025).
In review of recent PET/CT on 02/27/2025 there is also high FDG activity/pulmonary nodule left upper lobe.
oncology signed off, rec 'OP follow up with [facility] oncologist recommended after discharge to discuss systemic therapy options base on resolution of infection, renal function, nutritional status, and performance status.'
MRI of the brain, ordered with persistent nausea and emesis and concern for central symptoms, negative for intracranial disease.
Acute kidney injury
Elevated anion gap metabolic acidosis.
Status post left nephrectomy for RCC.
Obstructive uropathy with right JJ stent placed on 05/05/2025
Eldridge catheter in place. Trial of void initiated on 06/22
Continue Flomax and Proscar
Appreciate nephrology input, dialysis started 05/18/25
Continue dialysis as per nephrology
Hypotensive initiated on midodrine 2.5 mg 3 times daily.
Chronic normocytic anemia
Iron studies indicative of mild iron deficiency and anemia of chronic disease. Per heme/onc, no role for supplementation
Erythropoietin level of 4, low end of normal range.
Follow hemoglobin, transfuse if Hgb<7
Concern for esophageal candidiasis
With persistent odynophagia will start empiric treatment with Diflucan.
Continue acid suppression increasing Protonix to 40 mg IV twice daily.
EGD 05/25 with no abnormalities.
Completed empiric course of nystatin and Diflucan for 14 days.
SVT�sinus tachycardia.
Had 1 vasovagal episode/presyncope on 05/20.
Initiated on low-dose of beta-blockers
Additional workup including:
ECG sinus tach
Monitor on telemetry
Pro CHF BNP mildly elevated at 790
Echocardiogram with preserved biventricular function and no evidence for RV strain
Lower extremity Dopplers negative
Hemoglobin has been stable
VQ scan low probability
Prolonged QTc
Stop Remeron and Zofran
Improved
Avoid QT prolonging medications
Protracted encephalopathy. Suspect multifactorial metabolic toxic encephalopathy
Initially mental status, appetite, nausea and emesis improved with initiation of hemodialysis (possibly related to uremia)
Currently with agitation and visual hallucinations.
Brain imaging including MRI with no evidence of intracranial disease
Additional ID workup with no evidence of new infection.
Psychiatry input appreciated with concern for hypnopompic hallucinations possibly related to situational stress, disruption of sleep cycle and prolonged hospitalization.
Repeat MRI on 06/10 with no acute intracranial abnormal
Normal cortisol level including stim test.
Blood culture from 06/07, urine cultures negative to date
Continue lorazepam decreasing dose to avoid oversedation.
Seroquel discontinued, bupropion dose reduced to 100 mg daily
Encephalopathy appears to have resolved
Subclinical hypothyroidism.
TSH about 15.
T4/T3 marginal.
Initiated on levothyroxine 50 mcg daily on 06/07
Pain Management
-Patient previously on Morphine ER which was switched to Morphine IR when DHT was placed
-Patient had been refusing scheduled doses of narcotics
-Continue oxycodone PRN
Anxiety / Depression
-Continue bupropion
Deconditioning
-PM&R rec acute rehab once eating well or other nutrition plan in place
- Encourage increased p.o. intake and dietary supplementation, patient does not want PEG
Discharge Plan
-
Patient Disposition: Acute Rehab Facility
Discharge Diagnosis/Procedures: Renal cell carcinoma
Wound infection with staphylococcal bacteremia
Acute kidney injury requiring hemodialysis
Malnutrition
Condition: Good
Diet: Regular
Activity Restrictions/Additional Instructions:
Wound Care Instructions Spine incision-Apply Xeroform to any open areas and cover incision with silicone border foam (trim distal adhesive border while overlapping foam dressing to cover entire incision), change q 3 days and prn loosened dressing.
JEEVAN dressing-apply drainage sponge and cover with silicone border foam, change q 3 days and prn loosened or soiled dressing.
JEEVAN drains can be removed when drainage is less than 30ml over a 24hr period for 2 consecutive days (pull 1 drain, wait 2 days between drain pulls).
Air mattress.
Pressure redistributing chair cushion (i.e. Air chair cushion).
Elevate heels off bed with pillow.
Follow up with [facility] surgeon Dr. Heather Adkins at [facility], floor [address] [place] [address] (across from [facility]); call for appointment [phone].
Referrals:
Patricia River MD [Family Provider, Internal Medicine]
Prescriptions:
New
tamsulosin 0.4 mg Capsule
0.4 mg PO HS Qty: 30 0RF
cephalexin 500 mg Capsule
500 mg PO QPM Qty: 90 0RF
Rx Instructions:
life suppression
lorazepam 1 mg Tablet
1 mg PO Q8HPRN PRN (Reason: anxiety/insomnia) Qty: 10 0RF
lorazepam 1 mg Tablet
1 mg PO HS Qty: 10 0RF
Sore Throat (phenol) 1.4 % Aerosol,[place]
1 spray PO Q2HPRN PRN (Reason: sore thorat) Qty: 10 0RF
polyethylene glycol 3350 17 gram Powder In Packet
17 g PO BID Qty: 30 0RF
metoprolol tartrate 25 mg Tablet
12.5 mg PO BID Qty: 30 0RF
pantoprazole 40 mg Tablet,Delayed Release (Dr/Ec)
40 mg PO BID Qty: 60 0RF
midodrine 2.5 mg Tablet
2.5 mg PO TID@0800,1300,1800 Qty: 30 0RF
finasteride 5 mg Tablet
5 mg PO DAILY Qty: 30 0RF
sennosides [Alysia-sandra] 8.6 mg Tablet
8.6 mg PO BID Qty: 20 0RF
acetaminophen 325 mg Tablet
650 mg PO Q4HPRN PRN (Reason: mild pain / fever) Qty: 30 0RF
bupropion HCl 100 mg Tablet Sustained-Release 12 Hr
100 mg PO DAILY Qty: 30 0RF
levothyroxine 50 mcg Tablet
50 mcg PO DAILY @ 0600 Qty: 30 0RF
thiamine mononitrate (vit B1) 100 mg Tablet
100 mg PO DAILY Qty: 30 0RF
Continued
heparin (porcine) 5,000 unit/mL Syringe
5,000 unit SC BID
Discontinued
polyethylene glycol 3350 [Miralax] 17 gram Powder In Packet
17 g feeding tube BID
thiamine HCl (vitamin B1) 100 mg Tablet
100 mg feeding tube DAILY
oxycodone 5 mg/5 mL Solution
10 mg feeding tube Q4HPRN PRN (Reason: severe pain)
oxycodone 5 mg/5 mL Solution
5 mg PO Q4HPRN PRN (Reason: severe pains)
sennosides [senna] 8.8 mg/5 mL Syrup
17.6 mg feeding tube BID
lorazepam 0.5 mg Tablet
0.5 mg PO TIDPRN PRN (Reason: anixety)
sodium citrate-citric acid [Bicitra] 500-334 mg/5 mL Solution
30 ml feeding tube BID
ascorbic acid (vitamin C) [Vitamin C] 250 mg Tablet
250 mg feeding tube DAILY
insulin aspart U-100 100 unit/mL Solution
0 - 6 sliding scale dose SC BID
bisacodyl [Dulcolax (bisacodyl)] 10 mg Suppository
10 mg AR DAILYPRN PRN (Reason: constipation)
lidocaine 5 % Adhesive Patch,Medicated
2 patch TOPICAL DAILY
folic acid 1 mg Tablet
1 mg feeding tube DAILY
morphine [MS Contin] 15 mg Tablet Extended Release
15 mg PO Q12H
calcium carbonate 500 mg calcium (1,250 mg) Tablet,Chewable
1,000 mg PO Q8HPRN PRN (Reason: heartburn)
scopolamine base 1 mg over 3 days Patch 3 Day
1 patch TRANSDERMAL Q3D
oxybutynin chloride 5 mg Tablet
5 mg PO TIDPRN PRN (Reason: colic pain from stent)
phenol 1.4 % Aerosol,[place]
1 spray MUCOUS MEMBRANE Q2HPRN PRN (Reason: sore throat)
lansoprazole 15 mg Tablet,Disintegrat, Delay Rel
15 mg feeding tube DAILY
zinc sulfate 50 mg zinc (220 mg) Capsule
50 mg feeding tube DAILY
ondansetron HCl (PF) [Zofran (PF)] 4 mg/2 mL Solution
4 mg IM TID
cefazolin in sterile water 2 gram/20 mL Syringe
20 ml IV BID
zinc oxide 40 % Ointment
1 applic TOPICAL DAILYPRN PRN (Reason: damage skin)
acetaminophen 160 mg/5 mL (5 mL) Solution
640 mg feeding tube Q4HPRN PRN (Reason: mild pain)
prochlorperazine edisylate [Compazine] 10 mg/2 mL (5 mg/mL) Solution
10 mg IM Q6HPRN PRN (Reason: nausea)
baclofen 10 mg/5 mL (2 mg/mL) Solution
5 mg feeding tube TIDPRN PRN (Reason: hiccups)
Buproprion 50mg/5ml
10 ml feeding tube TID
Finasteride 5mg/5ml
5 ml feeding tube DAILY
Discharge Orders:
Discharge Patient (As Directed); Ordered 06/24/25
Ordered By: Chas Michel
Discharge Date and Time
Print Language: CYMRO
[2025-06-24 16:50] LABS: Glucose - Point of Care 98 mg/dl (70-99)
[2025-06-24] MEDS: KEFLEX 500 MG PO (17:20)
[2025-06-24] MEDS: ATIVAN 1 MG PO (21:11)
[2025-06-24] MEDS: FLOMAX 0.4 MG PO (21:11)
[2025-06-24 21:29] LABS: Glucose - Point of Care 97 mg/dl (70-99)
[2025-06-24 23:00] VITALS: BP 116/76
[2025-06-25] MEDS: COMPAZINE 5 MG IV (00:26)
[2025-06-25 06:00] VITALS: BMI 16.8
[2025-06-25] MEDS: SYNTHROID 50 MCG PO (06:06)
[2025-06-25 07:05] VITALS: BP 120/80
[2025-06-25 07:56] LABS: Glucose - Point of Care 110 mg/dl (70-99)
[2025-06-25] MEDS: NOVOLOG FLEXPEN-LOW RESISTANCE SC ×2 (08:16→12:37)
[2025-06-25] MEDS: SENOKOT 8.6 MG PO (08:17)
[2025-06-25] MEDS: PROSCAR 5 MG PO (08:17)
[2025-06-25] MEDS: VITAMIN C 250 MG PO (08:17)
[2025-06-25] MEDS: WELLBUTRIN SR (12 hour sustained release) 100 MG PO (08:17)
[2025-06-25] MEDS: HEPARIN 5000 UNITS SC (08:25)
[2025-06-25] MEDS: VITAMIN B1 100 MG PO (08:26)
[2025-06-25] MEDS: PROTONIX 40 MG PO (08:26)
[2025-06-25] MEDS: OASIS PO ×2 (08:26→12:38)
[2025-06-25] MEDS: DESENEX/MITRAZOL/ZEASORB 1 APPLIC TOPICAL (08:27)
[2025-06-25] MEDS: ANTIFUNGAL CLEAR 1 APPLIC TOPICAL (08:27)
[2025-06-25 09:02] LABS: Blood Urea Nitrogen 22 mg/dl (9-20); Calcium 9.3 mg/dl (8.4-10.2); Carbon Dioxide 25 mmol/L (22-30); Chloride 107 mmol/L (98-107); Estimated Creatinine Clearance 21 ml/min; Glucose 108 mg/dl (70-99); Potassium 4.8 mmol/L (3.5-5.1); Sodium 138 mmol/L (135-145); eGFR 23.44
[2025-06-25 12:03] LABS: Glucose - Point of Care 100 mg/dl (70-99)
--- NOTE | 2025-06-25 12:16 | CM ---
Addendum entered by Betsy Raya 06/25/25 15:07:
4pm transport set-updated Tabatha at [place]
Original Note:
spoke to patient - discharge today to [facility]
HD today
[facility] - confirmed he has a dialysis chair at [facility]
Tabatha has all auth information
TC from Julia at [facility]
Authorization for Acute Rehab approved
Auth # [id number]
Sart date 06/25/25, NRD 06/29/25
Updates to fax# [phone] or if you have access to [employer] you can upload into the portal.
PLAN: [facility]
report #: [id number]
fax #: [phone]
transportation form on chart
--- NOTE | 2025-06-25 12:34 | W.PN.NEPH.HD ---
Progress Note - Hemodialysis
-
Date of Service: June 25, 2025
Duration: 3 hours
Potassium Bath: 3
Calcium Bath: 2.5
Opti-Dialyzer: 160
Ultrafiltration: Other (0)
Blood Flow: 400
Dialysate Flow: 600
Heparin: 0
EPO: 0
[2025-06-25] MEDS: LOPRESSOR 12.5 MG PO (12:37)
--- NOTE | 2025-06-25 13:55 | W.PN.HOSP.TC ---
Today's Communication/Plan
-
Discharge
Assessment / Plan
Assessment / Plan
Impression/plan
49yo M with PMHx of past medical history notable for metastatic RCC (s/p prior nephrectomy 12/2024) complicated by spinal mets and spinal infection (s/p prior washout ) with MSSA bacteremia, obstructive uropathy (s/p R JJ stent 04/2025),
previous uremia (s/p iHD), severe protein calorie malnutrition (s/p previous DHT) and ongoing nausea and odynophagia, CKD Initially presented on 03/27/25 to with worsening b/l LE weakness and found malignant soft tissue compressing spinal canal.
Had decompression and emolization done in [facility], then developed complication with spinal postOP wound infection with wound dehiscence and MSSA bacteremia s/p washout and woundVAc planned on [facility] till 06/10/25 and then chronic suppressive therapy.
Patient found hydronephrosis of his solitary R kidney and JJ stent placed. Developed worsening POLA finally requiring HD started on 05/18/25. Found elevated PR3, however with active infection and uncertain clinical value of this positive test - renal
biopsy and Rituxan therapy was declined by nephrology.
Patient with poor oral intake since developed feeling of dysphagia after recent surgery. Self-removed NG tube and declined PEG, planning to increase his oral intake to be able to improve calorie balance. GI called for nausea and odynophagia, so GI
did EGD on 05/25/25 without esophagitis, ulcerations or abnormalities, multiple gastric polyps seen, patchy erythema of duodenal bulb. GI advised empiric fluconazole for 14 days due to Hx of esophageal candidiasis. Plastic Sx consulted on 05/30/25
for postOP drain removal due to missed planned appt with current hospitalization. PT/OT recommended acute rehab, pending physiatry eval
ALso developed hallucinations both visual and acoustic on 06/05/25
MSSA Bacteremia secondary to Spinal Infection
- Completed course of cefazolin as of June 10 and transitioned to chronic antibiotic suppression with cephalexin.
- Follow-up schedule with ID at [place]
- Wound VAC present on transfer to , removed on 05/11
- Initially with bilateral paraspinal JEEVAN drain. One of the JEEVAN drain has been removed by plastic surgery. Continue wound care. Outpatient follow-up with surgery at [facility].
Metastatic Renal Cell Carcinoma
met to Spinal Column Metastasis
s/p Left L1 & B/L L2 Segmental Artery Embolization (03/30/25); T12-L2 laminectomy, Left L1/2 corpectomy, T11-L4 fusion (03/31/25); Thoracolumbar Wound Washout with PRS closure (04/30/2025).
In review of recent PET/CT on 02/27/2025 there is also high FDG activity/pulmonary nodule left upper lobe.
oncology signed off, rec 'OP follow up with [facility] oncologist recommended after discharge to discuss systemic therapy options base on resolution of infection, renal function, nutritional status, and performance status.'
MRI of the brain, ordered with persistent nausea and emesis and concern for central symptoms, negative for intracranial disease.
Acute kidney injury
Elevated anion gap metabolic acidosis.
Status post left nephrectomy for RCC.
Obstructive uropathy with right JJ stent placed on 05/05/2025
Eldridge catheter in place. Trial of void initiated on 06/22
Continue Flomax and Proscar
Appreciate nephrology input, dialysis started 05/18/25
Continue dialysis as per nephrology
Hypotensive initiated on midodrine 2.5 mg 3 times daily.
Chronic normocytic anemia
Iron studies indicative of mild iron deficiency and anemia of chronic disease. Per heme/onc, no role for supplementation
Erythropoietin level of 4, low end of normal range.
Follow hemoglobin, transfuse if Hgb<7
Concern for esophageal candidiasis
With persistent odynophagia will start empiric treatment with Diflucan.
Continue acid suppression increasing Protonix to 40 mg IV twice daily.
EGD 05/25 with no abnormalities.
Completed empiric course of nystatin and Diflucan for 14 days.
SVT�sinus tachycardia.
Had 1 vasovagal episode/presyncope on 05/20.
Initiated on low-dose of beta-blockers
Additional workup including:
ECG sinus tach
Monitor on telemetry
Pro CHF BNP mildly elevated at 790
Echocardiogram with preserved biventricular function and no evidence for RV strain
Lower extremity Dopplers negative
Hemoglobin has been stable
VQ scan low probability
Prolonged QTc
Stop Remeron and Zofran
Improved
Avoid QT prolonging medications
Protracted encephalopathy. Suspect multifactorial metabolic toxic encephalopathy
Initially mental status, appetite, nausea and emesis improved with initiation of hemodialysis (possibly related to uremia)
Currently with agitation and visual hallucinations.
Brain imaging including MRI with no evidence of intracranial disease
Additional ID workup with no evidence of new infection.
Psychiatry input appreciated with concern for hypnopompic hallucinations possibly related to situational stress, disruption of sleep cycle and prolonged hospitalization.
Repeat MRI on 06/10 with no acute intracranial abnormal
Normal cortisol level including stim test.
Blood culture from 06/07, urine cultures negative to date
Continue lorazepam decreasing dose to avoid oversedation.
Seroquel discontinued, bupropion dose reduced to 100 mg daily
Encephalopathy appears to have resolved
Subclinical hypothyroidism.
TSH about 15.
T4/T3 marginal.
Initiated on levothyroxine 50 mcg daily on 06/07
Pain Management
-Patient previously on Morphine ER which was switched to Morphine IR when DHT was placed
-Patient had been refusing scheduled doses of narcotics
-Continue oxycodone PRN
Anxiety / Depression
-Continue bupropion
Deconditioning
-PM&R rec acute rehab once eating well or other nutrition plan in place
- Encourage increased p.o. intake and dietary supplementation, patient does not want PEG
DVT proph: SC Heparin
Code Status: Full Code
Dispo - acute inpatient rehab
Anticipated Discharge: Today
Subjective/Interval History
-
Date of Service: June 25, 2025
Objective Data
-
Labs:
Laboratory Results
06/25/25
08:07
Sodium 138
Potassium 4.8
Chloride 107
Carbon Dioxide 25
BUN 22 H
Creatinine 3.1 H
Glucose 108 H
Calcium 9.3
Vital Signs:
Vital Signs
Temp Pulse Resp BP Pulse Ox
98.6 F 90 18 120/80 99
06/25/25 07:05 06/25/25 07:05 06/25/25 07:05 06/25/25 07:05 06/25/25 07:05
I&O
06/24/25 06/25/25 06/26/25
06:59 06:59 06:59
Intake Total 590 / 590 1540 / 1540
Output Total 955 / 955
Balance 590 / 590 585 / 585
Physical Exam
-
General: No Apparent Distress
HEENT: Normocephalic
Neuro: Awake, Alert, Oriented and AO x 3
Psych: Calm; Negative Confused
[2025-06-25 15:14] VITALS: BP 120/81
[2025-06-25] MEDS: KEFLEX 500 MG PO (17:21)
== END 2025-06-25 17:18 | DRG 673 ==
LOC: 3 WEST ACU 17:42
PROVIDERS: Family Medicine; Hospitalist; Internal Medicine; Internal Medicine Nephrology; Nurse Practitioner Adult Health; Nurse Practitioner Family; Physician Assistant Medical; Radiology Vascular & Interventional Radiology; Specialist; ADMITTING PHYSICIAN Internal Medicine; ATTENDING PHYSICIAN Internal Medicine; CONSULT PHYSICIAN Internal Medicine; CONSULT PHYSICIAN Internal Medicine Infectious Disease; CONSULT PHYSICIAN Physical Medicine & Rehabilitation; CONSULT PHYSICIAN Psychiatry & Neurology Neurology; CONSULT PHYSICIAN Psychiatry & Neurology Psychiatry; CONSULT PHYSICIAN Student in an Organized Health Care Education/Training Program; FAMILY PHYSICIAN Internal Medicine; OTHER PHYSICIAN Internal Medicine Hematology & Oncology
PROC: 0JH60XZ Insertion of Tunneled Vascular Access Device into Chest Subcutaneous Tissue and Fascia, Open Approach (ICD-10-PCS; 2025-05-18)
PROC: 02H633Z Insertion of Infusion Device into Right Atrium, Percutaneous Approach (ICD-10-PCS; 2025-05-18)
PROC: 5A1D70Z Performance of Urinary Filtration, Intermittent, Less than 6 Hours Per Day (ICD-10-PCS; 2025-05-18)
PROC: 0DB68ZX Excision of Stomach, Via Natural or Artificial Opening Endoscopic, Diagnostic (ICD-10-PCS; 2025-05-25)
PROC: 0DB58ZX Excision of Esophagus, Via Natural or Artificial Opening Endoscopic, Diagnostic (ICD-10-PCS; 2025-05-25)
DX: N17.9 Acute kidney failure, unspecified (principal); E43 Unspecified severe protein-calorie malnutrition; G92.8 Other toxic encephalopathy; T81.43XA Infection following a procedure, organ and space surgical site, initial encounter; C64.2 Malignant neoplasm of left kidney, except renal pelvis; C79.51 Secondary malignant neoplasm of bone; F11.20 Opioid dependence, uncomplicated; Z68.1 Body mass index [BMI] 19.9 or less, adult; N13.8 Other obstructive and reflux uropathy; E87.1 Hypo-osmolality and hyponatremia; T81.31XA Disruption of external operation (surgical) wound, not elsewhere classified, initial encounter; B37.81 Candidal esophagitis; I47.10 Supraventricular tachycardia, unspecified; R78.81 Bacteremia; E87.21 Acute metabolic acidosis; E87.22 Chronic metabolic acidosis; N13.30 Unspecified hydronephrosis; E87.5 Hyperkalemia; R13.10 Dysphagia, unspecified; I95.9 Hypotension, unspecified; R55 Syncope and collapse; E87.6 Hypokalemia; E88.A Wasting disease (syndrome) due to underlying condition; R33.9 Retention of urine, unspecified; Y83.8 Other surgical procedures as the cause of abnormal reaction of the patient, or of later complication, without mention of misadventure at the time of the procedure; D50.9 Iron deficiency anemia, unspecified; D63.8 Anemia in other chronic diseases classified elsewhere; K31.7 Polyp of stomach and duodenum; K31.89 Other diseases of stomach and duodenum; R82.81 Pyuria; G47.00 Insomnia, unspecified; E11.649 Type 2 diabetes mellitus with hypoglycemia without coma; R94.31 Abnormal electrocardiogram [ECG] [EKG]; M48.061 Spinal stenosis, lumbar region without neurogenic claudication; F32.A Depression, unspecified; F41.9 Anxiety disorder, unspecified; E03.8 Other specified hypothyroidism; G89.29 Other chronic pain; E88.09 Other disorders of plasma-protein metabolism, not elsewhere classified; L89.151 Pressure ulcer of sacral region, stage 1; Z87.891 Personal history of nicotine dependence; Z90.5 Acquired absence of kidney
CPT/HCPCS: 36558; 70450; 70553; 71045; 71046; 76770; 76937; 77001; 78582; 80048; 80051; 80053; 80069; 81003; 81015; 82140; 82533; 82607; 82668; 82728; 82746; 82947; 82962; 83036; 83516; 83540; 83550; 83735; 83880; 83930; 84100; 84300; 84439; 84443; 84478; 84481; 85014; 85018; 85025; 85027; 85610; 85730; 86038; 86160; 86704; 86706; 86803; 86850; 86900; 86901; 87040; 87070; 87086; 87340; 88305; 88342; 92526; 92610; 93005; 93306; 93970; 97110; 97116; 97163; 97167; 97530; 97535; 99152; 99153; A9540; A9567; A9575; C1750; G0257; P9047; Q5106